=== PATIENT | male | born 1950 | race Caucasian/White ===

== ENCOUNTER 2019-03-03 12:59 | Outpatient (RCR) | payer MEDICARE, MEDICAID, SELFPAY | END 2019-03-03 23:59 | disposition home or self-care (01) | LOC: ONCRAD 12:59 | PROVIDERS: Family Provider Internal Medicine; Visit Provider Internal Medicine Hematology & Oncology | DX: I82.412 Acute embolism and thrombosis of left femoral vein (principal); I82.492 Acute embolism and thrombosis of other specified deep vein of left lower extremity; I82.432 Acute embolism and thrombosis of left popliteal vein; C21.1 Malignant neoplasm of anal canal | CPT/HCPCS: 93971 ==

== ENCOUNTER 2019-03-19 05:35 | Outpatient (RCR) | payer MEDICARE, MEDICAID, SELFPAY | END 2019-03-30 00:01 | LOC: ONCMED 05:35 | PROVIDERS: Family Provider Internal Medicine; Visit Provider Internal Medicine Hematology & Oncology | DX: C21.1 Malignant neoplasm of anal canal (principal); C77.4 Secondary and unspecified malignant neoplasm of inguinal and lower limb lymph nodes; K80.80 Other cholelithiasis without obstruction; K44.9 Diaphragmatic hernia without obstruction or gangrene; I82.412 Acute embolism and thrombosis of left femoral vein; I82.432 Acute embolism and thrombosis of left popliteal vein; Z87.01 Personal history of pneumonia (recurrent); Z79.899 Other long term (current) drug therapy; Z92.3 Personal history of irradiation; Z92.21 Personal history of antineoplastic chemotherapy; Z79.01 Long term (current) use of anticoagulants | CPT/HCPCS: 36415; 80053; 85025; 99214 ==

== ENCOUNTER 2019-05-18 08:53 | Outpatient (CLI) | payer MEDICARE, MEDICAID, SELFPAY ==
--- NOTE | 2019-05-18 08:58 | USCV_ITS ---
Gerardo Millan Age: 68 Gender: M : 1950 Exam Date: 05/18/2019 09:12 Ordering Phys: Casa Bonilla MD Technologist: Danay White Exam Location: [facility] [place]_ Indication: HISTORY DVT LEFT LEG HISTORY: left leg DVT February 2019. Patient has been on eloquist since that time PROCEDURES: On the left side, the common femoral, superficial femoral, profunda femoral, popliteal, posterior tibial, greater saphenous veins, and the peroneal trunk were identified and interrogated in the standard fashion. These veins were found to be easily compressible with spontaneous blood flow. FINDINGS: The veins were found to be easily compressible with spontaneous blood flow. Non pulsatile flow pattern. CONCLUSIONS No evidence of DVT in the above-mentioned identifiable veins. Dr Ashwin Marie MD FAC (Electronically Signed) Final Date: 19 May 2019 09:10 S
[2019-05-18 09:46] LABS: Basophils % 0.7 %; Eosinophils # 0.2 10^3/uL (0.0-0.8); Hematocrit 36.4 % (42.0-52.0); Hemoglobin 12.3 g/dL (11.7-16.6); Lymphocytes # 0.9 10^3/uL (0.8-4.8); Lymphocytes % 19.7 %; Mean Corpuscular HGB Conc 33.8 g/dL (30.0-36.0); Mean Corpuscular Hemoglobin 35.4 pg (28.0-34.0); Mean Corpuscular Volume 104.9 fL (80-94); Mean Platelet Volume 9.7 fL (7.4-10.4); Monocytes # 0.7 10^3/uL (0.2-0.9); Neutrophils # 2.7 10^3/uL (1.8-7.7); Neutrophils % 60.4 %; Nucleated Red Blood Cells % 0 %; Platelet Count 151 10^3/cmm (130-400); Red Blood Count 3.47 10^6/uL (4.1-5.3); White Blood Count 4.5 10^3/uL (4.0-10.0)
[2019-05-18 09:57] LABS: D Dimer 1.12 ug/mIFEU (0-0.59)
[2019-05-18 10:02] LABS: Alanine Aminotransferase 17 U/L (0-41); Albumin Level 4.1 g/dL (3.5-5.2); Alkaline Phosphatase 71 IU/L (40-130); Anion Gap 17.4 (5-19); Aspartate Amino Transferase 44 U/L (0-40); Blood Urea Nitrogen 23 mg/dL (8-23); Calcium 9.9 mg/dL (8.5-10.5); Carbon Dioxide 25 mmol/L (22-29); Chloride 103 mmol/L (98-107); Glomerular Filtration Rate 84.2 mL/min (90-130); Glucose 91 mg/dL (65-115); Potassium 4.4 mmol/L (3.5-5.1); Sodium 141 mmol/L (136-145); Total Bilirubin 0.7 mg/dL (0.15-1.2); Total Protein 7.1 g/dL (6.6-8.7)
== END 2019-05-18 08:54 | disposition home or self-care (01) ==
LOC: US 08:55
PROVIDERS: Family Provider Internal Medicine; PCP Internal Medicine; Visit Provider Internal Medicine Hematology & Oncology
DX: C21.1 Malignant neoplasm of anal canal (principal); Z86.718 Personal history of other venous thrombosis and embolism
CPT/HCPCS: 36415; 80053; 85025; 85378; 93971

== ENCOUNTER 2019-05-21 08:47 | Outpatient (CLI) | payer MEDICARE, MEDICAID, SELFPAY ==
--- NOTE | 2019-05-21 10:18 | ONC FU_ITS ---
Dr. Bonilla follow up note Patient: Gerardo Millan Unit #: [id number]: 1950 Dicatated By: Casa Bonilla M.D.Date of Visit:May 21, 2019 Onc Med Follow-up/Prog Note History of Present Illness: Mr. Millan is a 68-year-old gentleman with history of bowel habits changes. He underwent colonoscopy for the first-time on 10/13/2018 which showed a mass involving the right side of anal canal at the anal verge. 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 Patient denies any history of rectal bleeding or history of pelvic pain. He denied any history of nausea/vomiting, fever or chills. Has history of weight loss in the past but has regained that weight. Mr Millan has gender preference. He states he has had HIV testing in the past and it was negative. As per patient, he states he was once was told about being hepatitis C positive but when rechecked by another physician, he was told he was negative for hepatitis C. Patient has history of recurrent pneumonia requiring multiple hospitalizations. s/p concurrent therapy including Xeloda, mitomycin and daily radiation. eg mitomycin IV on days 1 and 29 and Xeloda (capecitabine) 1500 mg twice daily Friday through Friday with radiation treatments only , Day 1 and mitomycin was given on 11/26/2018 And day 29 was given on 01/07/2019 Follow-up CT scan of abdomen pelvis done on 02/12/2019 showed improved anal lesion consistent with history of treated neoplasm No metastatic disease Cholelithiasis, small esophageal hiatal hernia, Improved/resolved previously described right femoral metastatic lymph node Filling defect in the left common femoral vein may represent venous mixing artifact or DVT, sonogram was recommended Sonogram done on 03/03/2019 showed occlusive DVT visualized in left common femoral, superficial femoral, profunda, and popliteal, posterior tibial veins, and he was started on Eliquis 10 mg by mouth twice a day for 1 week on 03/03/2019 followed by 5 mg by mouth twice a day for 3 months. Follow-up venous Doppler study of left lower extremity done on 05/18/2019 showed no evidence of DVT in the left leg, d-dimer 1.12 normal being 0-0.40 Came for follow-up, denies any specific complaints, no vomiting no fever no chills no melena or hematochezia, no jaundice, no shortness of breath, no left leg swelling tolerating Eliquis well. Medications: Aspirin 1 Tablet (of 325 mg) Oral daily, Centrum Silver 50+Men 1 Tablet Oral daily, Eliquis 1 (5 mg) Tablet Oral b.i.d., Flonase Suspension Nasal PRN, Lisinopril 1 Tablet (of 20 mg) Oral daily, Metoprolol Tartrate 0.5 Tablet (of 50 mg) Oral b.i.d. Allergies: Penicillins Review of Systems: Constitutional - Appetite is good and weight is stable. No fever, chills, hot flashes, or night sweats. Energy level is fair, ENMT - Positive for sinus congestion/drainage. No mouth sores. No sore throat or difficulty swallowing, Hematologic/Lymphatic - Pt denies bruising or bleeding today, Respiratory - Positive for shortness of breath and cough. No pleuritic pain or hemoptysis, Cardiovascular - No angina pain. No palpitations, Gastrointestinal - No nausea or vomiting. No heartburn or acid reflux. No diarrhea, no constipation. Negative for bloody stools, Genitourinary (M) - No dysuria or hematuria. No urinary frequency. No urgency or incontinence, Musculoskeletal - Pt reports chronic back pain, Neurologic - No headache, no dizziness. No numbness/paresthesias or other focal neurologic symptoms, Psychiatric - No anxiety or depression. No insomnia. Vital Signs: Performed on May 21, 2019 08:57 Height - 72.00 in Weight - 168.2 lbs (HIGH) BSA - 1.98 sq.m BMI - 22.81 Temperature - 98.7 F Pulse - 57 /min (LOW) Respiration - 24 /min BP - 107/62 mm(hg) O2 Sat - 98 % Pain - 0 Performance Status: 0 - Fully active, able to carry on all predisease activities without restrictions. (ECOG) Physical Examination: ENMT - No oral exudates, ulcers, masses, thrush or mucositis. Oropharynx clear. Tongue normal, Respiratory - Lungs are clear to auscultation without rhonchi or wheezing, Cardiovascular - Regular rate and rhythm of heart, Abdomen - Non-tender, non-distended, Good bowel sounds. No guarding or rebound tenderness. No pulsatile masses, Extremities - no edema. Lab/Imaging: Test performed on May 18, 2019 09:36 Glucose 91 mg/dL BUN 23 mg/dL Creatinine 0.9 mg/dL Cr Clearance (Est) 85.95 mL/min Sodium 141 mmol/L Potassium 4.4 mmol/L Chloride 103 mmol/L CO2 25 mmol/L Calcium 9.9 mg/dL Protein, Total 7.1 g/dL Albumin 4.1 g/dL Globulin 3.0 g/dL Bilirubin, Total 0.7 mg/dL Alkaline Phosphatase 71 IU/L AST (SGOT) 44 IU/L ALT (SGPT) 17 IU/L D-Dimer 1.12 mcg/mL WBC 4.5 10^9/L RBC 3.47 10^12/L HGB 12.3 g/dL HCT 36.4 % MCV 104.9 fl MCH 35.4 pg MCHC 33.8 g/dL RDW 16.0 % Platelet Count 151 10^9/L MPV 9.7 fL Neutrophils (Gran) 2.7 10^9/L Lymphocytes 0.9 10^9/L Monocytes 0.7 10^9/L Eosinophils 0.2 10^9/L Basophils 0.0 10^9/L Manual Lymphocytes 19.7 % Manual Monocytes 15.0 % Manual Eosinophils 4.0 % Manual Basophils 0.7 % NRBCs 0.0 /100 WBC Test performed on Mar 17, 2019 10:10 Anion Gap 17.7 eGFR 55.1 mL/min Neutrophil % 55.9 % Lymphocyte % 21.5 % Monocyte % 15.5 % Eosinophil % 5.6 % Basophils % 0.5 % Impression: Keratinizing squamous cell carcinoma, moderately differentiated of anal canal per colonoscopy done on 10/13/2018 Patient with history of gender preference History of recurrent pneumonias requiring hospitalization HIV testing done in 2008 was negative. As per patient, once he was told being hepatitis C positive but rechecked by another physician he was told being negative. CT from 11/14/2018 reported a 3.4 cm anal mass with an SUV of 21.1. A 1.4 cm right femoral note had an SUV of 6 consistent with local metastatic disease. No findings to indicate additional disease. s/p concurrent therapy with Xeloda/Mitomycin and radiation. He began his first cycle on 11/26/2018. And day 29 on 01/07/2019, it was delayed due to progressive neutropenia Newly diagnosed left leg DVT on 03/03/2019, started on Eliquis 10 mg by mouth twice a day for 1 week followed by 5 mg by mouth twice a day for 3 months. Plan: Discussed with patient regarding his labs white blood count 4.5 hemoglobin 12.3 crit 36.4 platelets 151,000 CMP within normal limits d-dimer 1.12, normal is 0-0.40 and follow-up venous Doppler study of left leg showed no evidence of DVT Clinically, patient doing well, no signs symptoms suggestive of recurrence of disease. As far as left lower extremity DVT is concern patient is on Eliquis since 03/03/2019 and his follow-up venous Doppler study of left leg showed no evidence of DVTs but d-dimer is elevated at 1.12. We'll continue with anticoagulation for another month and repeat d-dimer and if normalize, by that time he we will complete 3 months of anticoagulation too . Then will discuss with patient regarding discontinuation of anticoagulation. Return to clinic in one month with d-dimer Signed By: Casa Bonilla M.D. <<Signature on File>>
== END 2019-05-21 08:48 | disposition home or self-care (01) ==
LOC: ONCMED 08:47
PROVIDERS: Family Provider Internal Medicine; PCP Internal Medicine; Visit Provider Internal Medicine Hematology & Oncology
DX: C21.1 Malignant neoplasm of anal canal (principal); K80.20 Calculus of gallbladder without cholecystitis without obstruction; K44.9 Diaphragmatic hernia without obstruction or gangrene; Z79.01 Long term (current) use of anticoagulants; Z79.82 Long term (current) use of aspirin; Z79.899 Other long term (current) drug therapy; Z86.718 Personal history of other venous thrombosis and embolism; Z87.01 Personal history of pneumonia (recurrent)
CPT/HCPCS: 99214

== ENCOUNTER 2019-05-30 06:00 | Outpatient (CLI) | payer MEDICARE, MEDICAID, SELFPAY | END 2019-05-30 06:01 | disposition home or self-care (01) | LOC: ONCMED 06-15 13:22 | PROVIDERS: Family Provider Internal Medicine; PCP Internal Medicine; Visit Provider Internal Medicine Hematology & Oncology | DX: Z01.89 Encounter for other specified special examinations (principal) ==

== ENCOUNTER 2019-06-04 09:55 | Observation (INO) | payer MEDICARE, MEDICAID, SELFPAY ==
[2019-06-04] VITALS (8 sets, daily range): BP systolic 102–120; BP diastolic 61–75; PULSE 59–93; RESP 16–20; TEMP 36.7–37.1; O2SAT 95–98; BMI 21.9
--- NOTE | 2019-06-04 09:54 | ED_ITS ---
Documented by User: Ling Morales 06/04/19 14:35 HPI - SOB/Dyspnea General: Chief Complaint: Shortness of Breath/Dyspnea Stated Complaint: shortness of breath Time Seen by Provider: 06/04/19 14:53 Source: patient and EMS History of Present Illness: MD elicited complaint: shortness of breath and cough Pertinent past history: COPD Timing: intermittent and progressively worsening Associated symptoms: Reports dizziness and nausea; Deny vomiting Review of Systems General: Reports: 10 or more systems reviewed and unremarkable except in HPI and below Resp: Reports: shortness of breath and non-productive cough GI: Reports: nausea; Denies: vomiting Neuro: Reports: headache, dizziness and vertigo PFSH ED PFSH: Social History Smoking and tobacco status: former smoker Physical Exam Const: COMMON NORMALS: no apparent distress, oriented x3, no limitations and alert GENERAL APPEARANCE: cooperative and comfortable ORIENTATION/CONSCIOUSNESS: Yes awake, Yes oriented to person, Yes oriented to place and Yes oriented to time HENMT: COMMON NORMALS: normocephalic, head/scalp atraumatic, external ears normal, EAC's normal, TM's normal bilaterally and external nose normal HEAD & SCALP: normal to inspection, normocephalic and atraumatic FACE & SINUS: normal facial exam, sinuses nontender and face symmetric NOSE: external nose normal, nares normal and no nasal discharge EXTERNAL EAR: Yes external ears normal EXTERNAL AUDITORY CANAL: EAC's normal TYMPANIC MEMBRANE: TM's normal bilaterally MOUTH: oral and palatal mucosa normal, lip normal and tongue normal THROAT: posterior oropharynx normal, tonsils normal and uvula midline Eye: COMMON NORMALS: PERRL, EOMs intact bilaterally and conjunctivae normal GENERAL EYE: normal appearance of both eyes and normal light reflex EYELID: eyelids normal CONJUNCTIVA: Yes conjunctivae normal PUPIL: Yes PERRL EOM: Yes EOM abnormal DIRECT OPHTHALMOSCOPY: Yes normal light reflex Neck/C-Spine: COMMON NORMALS: full ROM, no lymphadenopathy, supple, no meningeal signs, no JVD and thyroid normal GENERAL: Yes normal visual inspection THYROID: thyroid normal CERVICAL SPINE: Yes cervical ROM normal and Yes normal cervical lordosis Lymph: LYMPHATIC: no lymphadenopathy noted Chest: COMMONS NORMALS: inspection of chest normal and palpation of chest normal Resp: COMMON NORMALS: normal respiratory effort, no retractions and clear to auscultation bilaterally AUSCULTATION: clear to auscultation bilaterally Cardio: COMMON NORMALS: no JVD, regular rate, regular rhythm, S1 normal heart sound, S2 normal heart sound, no gallops, no clicks, no murmurs, no rub and peripheral pulses 2+ throughout RATE: regular rate RHYTHM: regular rhythm HEART SOUNDS: S1 normal and S2 normal PERIPHERAL PULSES: pulses 2+ throughout GI: COMMON NORMALS: normal to inspection, nondistended, normoactive bowel sounds, soft to palpation, non-tender and no masses PALPATION: Yes soft : COMMON NORMALS: Yes no CVA tenderness BLADDER/KIDNEY EXAM: Yes no CVA tenderness Back/Pelvis: COMMON NORMALS: no CVA tenderness, thoracic and lumbar spine normal to inspection, no thoracic nor lumbar tenderness and thoraco-lumbar ROM normal Extremity: COMMON NORMALS: normal to inspection, full ROM, normal capillary refill, no joint enlargement, no clubbing, cyanosis or edema, no calf tenderness and no pedal edema GENERAL: Yes normal exam except as noted Neuro: COMMON NORMALS: oriented x3, moves all extremities, no focal motor deficits, no sensory deficits noted and gait normal SENSORIUM/ORIENTATION: Yes alert, Yes oriented to person, Yes oriented to place and Yes oriented to time MENINGEAL SIGNS: Yes no meningeal signs Psych: COMMON NORMALS: mental status grossly normal, thought process normal, cooperative, affect normal, speech normal and activity/motor behavior normal SPEECH: Yes normal speech THOUGHT PROCESS: normal thought process Skin: COMMON NORMALS: no rashes or lesions noted, no wounds and skin turgor normal GENERAL SKIN EXAM: no rashes or lesions noted and turgor normal Course ED course: Arrival by EMS; pt improved with breathing tx. Cough progressively worse with SOB. Orders placed. RT at bedside. Reevaluation(s): Reevaluation #1: Pt is vomiting after giving PO meds. He remains very dizzy. Meds ordered. Time: 11:59 Reevaluation #2: CTA negative for clot Time: 13:21 Reevaluation #3: Awaiting orthos and reassessment after meds given. Time: 13:22 Consultations: Consultation #1: Pt too weak to be discharged to home at this time. Dr. Pastrana notified and will proceed with admit after speaking with hospitalist. Time: 14:35 Vital Signs: Vital signs: Vital Signs Temperature 98.8 F 06/04/19 09:48 Pulse Rate 61 06/04/19 15:44 Respiratory Rate 17 06/04/19 15:44 Blood Pressure 102/75 06/04/19 15:44 Pulse Oximetry 96 06/04/19 15:44 MDM - SOB/Dyspnea Lab Data: Labs: Lab Results 06/04/19 06/04/19 06/04/19 Range/Units 09:22 09:22 09:22 WBC 4.3 (4.0-10.0) 10^3/ uL RBC 3.30 L (4.1-5.3) 10^6/u L Hgb 11.4 L (11.7-16.6) g/dL Hct 34.1 L (42.0-52.0) % MCV 103.3 H (80-94) fL MCH 34.5 H (28.0-34.0) pg MCHC 33.4 (30.0-36.0) g/dL RDW 16.4 H (12.1-15.1) % Plt Count 93 L (130-400) 10^3/c mm MPV 10.8 H (7.4-10.4) fL Neut % (Auto) 53.8 % Lymph % (Auto) 28.4 % [place] % (Auto) 15.2 % Eos % (Auto) 1.6 % Baso % (Auto) 0.5 % Neut # (Auto) 2.3 (1.8-7.7) 10^3/u L Lymph # (Auto) 1.2 (0.8-4.8) 10^3/u L [place] # (Auto) 0.7 (0.2-0.9) 10^3/u L Eos # (Auto) 0.1 (0.0-0.8) 10^3/u L Baso # (Auto) 0.0 (0.0-0.1) 10^3/u L Nucleated RBC % (a uto) 0 % Nucleated RBCs # 0.0 /100WBC Sodium 141 (136-145) mmol/L Potassium 4.2 (3.5-5.1) mmol/L Chloride 100 (98-107) mmol/L Carbon Dioxide 22 (22-29) mmol/L Anion Gap 23.2 H (5-19) BUN 24 H (8-23) mg/dL Creatinine 1.2 (0.7-1.2) mg/dL GFR Calculation 60.4 L (90-130) mL/min Glucose 108 (65-115) mg/dL Calcium 9.2 (8.5-10.5) mg/dL Total Bilirubin 1.0 (0.15-1.2) mg/dL AST 120 H (0-40) U/L ALT 54 H (0-41) U/L Alkaline Phosphata se 93 (40-130) IU/L NT-Pro-B Natriuret Pep 582 H (0-125) pg/mL Total Protein 7.0 (6.6-8.7) g/dL Albumin 3.6 (3.5-5.2) g/dL Globulin 3.4 (1.3-4.6) g/dL Urine Color (Yellow) Urine Appearance (CLEAR) Urine pH (5-7) Ur Specific Gravit y (1.005-1.030) Urine Protein (Negative) Urine Glucose (UA) (Normal) Urine Ketones (Negative) Urine Blood (Negative) Urine Nitrate (Negative) Urine Bilirubin (NEGATIVE) Urine Urobilinogen (Negative) mg/dL Ur Leukocyte Sandhya ase (Negative) Influenza Type A A g (Negative) POC Influenza B Ag (Negative) 06/04/19 06/04/19 Range/Units 10:05 10:59 WBC (4.0-10.0) 10^3/ uL RBC (4.1-5.3) 10^6/u L Hgb (11.7-16.6) g/dL Hct (42.0-52.0) % MCV (80-94) fL MCH (28.0-34.0) pg MCHC (30.0-36.0) g/dL RDW (12.1-15.1) % Plt Count (130-400) 10^3/c mm MPV (7.4-10.4) fL Neut % (Auto) % Lymph % (Auto) % [place] % (Auto) % Eos % (Auto) % Baso % (Auto) % Neut # (Auto) (1.8-7.7) 10^3/u L Lymph # (Auto) (0.8-4.8) 10^3/u L [place] # (Auto) (0.2-0.9) 10^3/u L Eos # (Auto) (0.0-0.8) 10^3/u L Baso # (Auto) (0.0-0.1) 10^3/u L Nucleated RBC % (a uto) % Nucleated RBCs # /100WBC Sodium (136-145) mmol/L Potassium (3.5-5.1) mmol/L Chloride (98-107) mmol/L Carbon Dioxide (22-29) mmol/L Anion Gap (5-19) BUN (8-23) mg/dL Creatinine (0.7-1.2) mg/dL GFR Calculation (90-130) mL/min Glucose (65-115) mg/dL Calcium (8.5-10.5) mg/dL Total Bilirubin (0.15-1.2) mg/dL AST (0-40) U/L ALT (0-41) U/L Alkaline Phosphata se (40-130) IU/L NT-Pro-B Natriuret Pep (0-125) pg/mL Total Protein (6.6-8.7) g/dL Albumin (3.5-5.2) g/dL Globulin (1.3-4.6) g/dL Urine Color Yellow (Yellow) Urine Appearance Clear (CLEAR) Urine pH 5.0 (5-7) Ur Specific Gravit y 1.020 (1.005-1.030) Urine Protein Neg (Negative) Urine Glucose (UA) Norm (Normal) Urine Ketones 1+ H (Negative) Urine Blood Neg (Negative) Urine Nitrate Negative (Negative) Urine Bilirubin Neg (NEGATIVE) Urine Urobilinogen Norm (Negative) mg/dL Ur Leukocyte Sandhya ase Negative (Negative) Influenza Type A A g Negative (Negative) POC Influenza B Ag Negative (Negative) Discharge Plan Discharge Patient Disposition: Placed in Observation Admit Provider: Briana Nava Clinical Impression: Acute dehydration Vomiting Qualifiers: Vomiting type: unspecified Vomiting Intractability: intractable Nausea presence: with nausea Qualified Code(s): R11.2 - Nausea with vomiting, unspecified Chemotherapy adverse reaction Qualifiers: Encounter type: subsequent encounter Qualified Code(s): T45.1X5D - Adverse effect of antineoplastic and immunosuppressive drugs, subsequent encounter Condition: Stable Referrals: NATASHA LESTER DO [Primary Care Provider] - Discharge Date/Time: 06/04/19 16:31 Sign Out Sign Out Data: Patient Sign Out occurred on 06/04/19 at 14:53. Patient's care was discussed, and care was transferred from Ling Morales to Carole Ratliff DO. Sign Out Comment: Pt needs to be admitted for dehydration, weakness, dizziness, and intractable vomiting (post chemo) Last updated by Ling Morales at 06/04/19 14:51 Coding Level of Care Code ED Gas Distribution And Emergency Clerk for Chg Fwd Exam Comprehensive Documented by User: Carole Pastrana DO 06/04/19 16:45 HPI - SOB/Dyspnea General: Chief Complaint: Shortness of Breath/Dyspnea Stated Complaint: shortness of breath Time Seen by Provider: 06/04/19 14:53 PFSH ED PFSH: Social History Smoking and tobacco status: former smoker Course Vital Signs: Vital signs: Vital Signs Temperature 98.8 F 06/04/19 09:48 Pulse Rate 61 06/04/19 15:44 Respiratory Rate 17 06/04/19 15:44 Blood Pressure 102/75 06/04/19 15:44 Pulse Oximetry 96 06/04/19 15:44 MDM - SOB/Dyspnea MDM Narrative: Medical decision making narrative: 1500: pt has had intractable vomiting and cannot get his strength back after he last chemo. He will need iv hydration, I have taken this pt from Ling CARTAGENA, Dr Nava states she will put pt in obs Lab Data: Attestation: I reviewed the patient's lab results. Lab results narrative: BUN is 24 and Cr is 1.2 and he is prerenal Labs: Lab Results 06/04/19 06/04/19 06/04/19 Range/Units 09:22 09:22 09:22 WBC 4.3 (4.0-10.0) 10^3/ uL RBC 3.30 L (4.1-5.3) 10^6/u L Hgb 11.4 L (11.7-16.6) g/dL Hct 34.1 L (42.0-52.0) % MCV 103.3 H (80-94) fL MCH 34.5 H (28.0-34.0) pg MCHC 33.4 (30.0-36.0) g/dL RDW 16.4 H (12.1-15.1) % Plt Count 93 L (130-400) 10^3/c mm MPV 10.8 H (7.4-10.4) fL Neut % (Auto) 53.8 % Lymph % (Auto) 28.4 % [place] % (Auto) 15.2 % Eos % (Auto) 1.6 % Baso % (Auto) 0.5 % Neut # (Auto) 2.3 (1.8-7.7) 10^3/u L Lymph # (Auto) 1.2 (0.8-4.8) 10^3/u L [place] # (Auto) 0.7 (0.2-0.9) 10^3/u L Eos # (Auto) 0.1 (0.0-0.8) 10^3/u L Baso # (Auto) 0.0 (0.0-0.1) 10^3/u L Nucleated RBC % (a uto) 0 % Nucleated RBCs # 0.0 /100WBC Sodium 141 (136-145) mmol/L Potassium 4.2 (3.5-5.1) mmol/L Chloride 100 (98-107) mmol/L Carbon Dioxide 22 (22-29) mmol/L Anion Gap 23.2 H (5-19) BUN 24 H (8-23) mg/dL Creatinine 1.2 (0.7-1.2) mg/dL GFR Calculation 60.4 L (90-130) mL/min Glucose 108 (65-115) mg/dL Calcium 9.2 (8.5-10.5) mg/dL Total Bilirubin 1.0 (0.15-1.2) mg/dL AST 120 H (0-40) U/L ALT 54 H (0-41) U/L Alkaline Phosphata se 93 (40-130) IU/L NT-Pro-B Natriuret Pep 582 H (0-125) pg/mL Total Protein 7.0 (6.6-8.7) g/dL Albumin 3.6 (3.5-5.2) g/dL Globulin 3.4 (1.3-4.6) g/dL Urine Color (Yellow) Urine Appearance (CLEAR) Urine pH (5-7) Ur Specific Gravit y (1.005-1.030) Urine Protein (Negative) Urine Glucose (UA) (Normal) Urine Ketones (Negative) Urine Blood (Negative) Urine Nitrate (Negative) Urine Bilirubin (NEGATIVE) Urine Urobilinogen (Negative) mg/dL Ur Leukocyte Sandhya ase (Negative) Influenza Type A A g (Negative) POC Influenza B Ag (Negative) 06/04/19 06/04/19 Range/Units 10:05 10:59 WBC (4.0-10.0) 10^3/ uL RBC (4.1-5.3) 10^6/u L Hgb (11.7-16.6) g/dL Hct (42.0-52.0) % MCV (80-94) fL MCH (28.0-34.0) pg MCHC (30.0-36.0) g/dL RDW (12.1-15.1) % Plt Count (130-400) 10^3/c mm MPV (7.4-10.4) fL Neut % (Auto) % Lymph % (Auto) % [place] % (Auto) % Eos % (Auto) % Baso % (Auto) % Neut # (Auto) (1.8-7.7) 10^3/u L Lymph # (Auto) (0.8-4.8) 10^3/u L [place] # (Auto) (0.2-0.9) 10^3/u L Eos # (Auto) (0.0-0.8) 10^3/u L Baso # (Auto) (0.0-0.1) 10^3/u L Nucleated RBC % (a uto) % Nucleated RBCs # /100WBC Sodium (136-145) mmol/L Potassium (3.5-5.1) mmol/L Chloride (98-107) mmol/L Carbon Dioxide (22-29) mmol/L Anion Gap (5-19) BUN (8-23) mg/dL Creatinine (0.7-1.2) mg/dL GFR Calculation (90-130) mL/min Glucose (65-115) mg/dL Calcium (8.5-10.5) mg/dL Total Bilirubin (0.15-1.2) mg/dL AST (0-40) U/L ALT (0-41) U/L Alkaline Phosphata se (40-130) IU/L NT-Pro-B Natriuret Pep (0-125) pg/mL Total Protein (6.6-8.7) g/dL Albumin (3.5-5.2) g/dL Globulin (1.3-4.6) g/dL Urine Color Yellow (Yellow) Urine Appearance Clear (CLEAR) Urine pH 5.0 (5-7) Ur Specific Gravit y 1.020 (1.005-1.030) Urine Protein Neg (Negative) Urine Glucose (UA) Norm (Normal) Urine Ketones 1+ H (Negative) Urine Blood Neg (Negative) Urine Nitrate Negative (Negative) Urine Bilirubin Neg (NEGATIVE) Urine Urobilinogen Norm (Negative) mg/dL Ur Leukocyte Sandhya ase Negative (Negative) Influenza Type A A g Negative (Negative) POC Influenza B Ag Negative (Negative) Discharge Plan Discharge Patient Disposition: Placed in Observation Admit Provider: Briana Nava Clinical Impression: Acute dehydration Vomiting Qualifiers: Vomiting type: unspecified Vomiting Intractability: intractable Nausea presence: with nausea Qualified Code(s): R11.2 - Nausea with vomiting, unspecified Chemotherapy adverse reaction Qualifiers: Encounter type: subsequent encounter Qualified Code(s): T45.1X5D - Adverse effect of antineoplastic and immunosuppressive drugs, subsequent encounter Condition: Stable Referrals: NATASHA LESTER DO [Primary Care Provider] - Discharge Date/Time: 06/04/19 16:31 Sign Out Sign Out Data: Patient Sign Out occurred on 06/04/19 at 14:53. Patient's care was discussed, and care was transferred from Ling Morales to Carole Ratliff DO. Sign Out Comment: Pt needs to be admitted for dehydration, weakness, dizziness, and intractable vomiting (post chemo) Last updated by Ling Morales at 06/04/19 14:51 Coding Level of Care Code ED [employer] Distribution And Emergency Clerk for Chg Fwd Exam Comprehensive
[2019-06-04] MEDS: sodium chloride 0.9% 500 ML 999 ML IV ×2 (10:01→14:10)
[2019-06-04 10:04] LABS: Basophils % 0.5 %; Eosinophils # 0.1 10^3/uL (0.0-0.8); Eosinophils % 1.6 %; Hematocrit 34.1 % (42.0-52.0); Hemoglobin 11.4 g/dL (11.7-16.6); Lymphocytes # 1.2 10^3/uL (0.8-4.8); Lymphocytes % 28.4 %; Mean Corpuscular HGB Conc 33.4 g/dL (30.0-36.0); Mean Corpuscular Hemoglobin 34.5 pg (28.0-34.0); Mean Corpuscular Volume 103.3 fL (80-94); Mean Platelet Volume 10.8 fL (7.4-10.4); Monocytes # 0.7 10^3/uL (0.2-0.9); Monocytes % 15.2 %; Neutrophils # 2.3 10^3/uL (1.8-7.7); Neutrophils % 53.8 %; Nucleated Red Blood Cells % 0 %; Platelet Count 93 10^3/cmm (130-400); Red Cell Distribution Width 16.4 % (12.1-15.1); White Blood Count 4.3 10^3/uL (4.0-10.0)
[2019-06-04] MEDS: ipratropium-albuterol 3 mL Neb INHALATION (10:13)
[2019-06-04 10:17] LABS: Alanine Aminotransferase 54 U/L (0-41); Albumin Level 3.6 g/dL (3.5-5.2); Alkaline Phosphatase 93 IU/L (40-130); Anion Gap 23.2 (5-19); Aspartate Amino Transferase 120 U/L (0-40); Blood Urea Nitrogen 24 mg/dL (8-23); Calcium 9.2 mg/dL (8.5-10.5); Carbon Dioxide 22 mmol/L (22-29); Chloride 100 mmol/L (98-107); Globulin 3.4 g/dL (1.3-4.6); Glomerular Filtration Rate 60.4 mL/min (90-130); Glucose 108 mg/dL (65-115); Potassium 4.2 mmol/L (3.5-5.1); Sodium 141 mmol/L (136-145)
--- NOTE | 2019-06-04 10:27 | XR_ITS ---
WS: [id number] XR chest 1V portable [id number] REASON FOR EXAM: sob FINDINGS: A remote fracture of the right humerus is noted. The heart is borderline enlarged. [place] there is granulomas throughout both lung lomeli. The lung lomeli are well aerated. There is no pneumonia, pleural effusion, pulmonary edema, no mass e ffect. No pneumothorax. No osseous abnormalities. The hilum and apices normal. XR/XR chest 1V portable [id number] IMPRESSION: No acute findings are identified.
[2019-06-04 10:34] LABS: Influenza A by IFA Negative (Negative); Influenza B by IFA Negative (Negative)
--- NOTE | 2019-06-04 10:52 | ECG_ITS ---
Measurements Intervals Scott Rate: 68 P: 64 IN: 123 QRS: 17 QRSD: 91 T: 33 QT: 428 QTc: 455 JUNCTIONAL RHYTHM Compared to ECG 05/21/2018 13:04:12 T-wave abnormality no longer present Prolonged QT interval no longer present Electronically Signed On 06-04-2019 15:19:43 TEXTILE BROKER by Kylah Rodriguez M.D. [email or web address]
[2019-06-04 11:15] LABS: Add Urine Microscopic? NO
[2019-06-04 11:34] LABS: NT Pro B Type Natriuretic Pept 582 pg/mL (0-125)
[2019-06-04 11:35] LABS: Bilirubin Urine Neg (NEGATIVE); Blood Urine Neg (Negative); Glucose Urine UA Norm (Normal); Ketones Urine 1+ (Negative); Leukocyte Esterase Urine Negative (Negative); Nitrate Urine Negative (Negative); Protein Urine Neg (Negative); Urine Appearance Clear (CLEAR); Urine Color Yellow (Yellow); Urobilinogen Urine Norm (Negative)
[2019-06-04] MEDS: meclizine 25 mg tablet 50 MG PO (12:06)
[2019-06-04] MEDS: ondansetron 2 mg/ML SDV 2 mL 4 MG IVP (12:24)
[2019-06-04] MEDS: LORazepam 2 mg/mL INJ 1 mL IVP (12:24)
--- NOTE | 2019-06-04 12:44 | CT_ITS ---
WS: [id number] CTA OF THE CHEST WITH PULMONARY EMBOLISM PROTOCOL TECHNIQUE: High-resolution contrast enhanced CTA of the chest with coronal and sagittal reformatted i mages with pulmonary embolism protocol. MIP images are also reviewed. CLINICAL INFORMATION: sob, dvt COMPARISON: May 21, 2018 DLP: 592.[address] scans at [facility] use at least one of these dose optimization techniques: automat ed exposure control; mA and/or kV adjustment per patient size (includes targeted exams where dose is matched to clinical indication); or iterative reconstruction. FINDINGS: Proximal main pulmonary arteries are normal. Normal segmental and subsegmental pulmonary arteries. So me images degraded by motion artifact. No evidence for pulmonary embolus. Chronic emphysematous changes. Subsegmental atelectasis in the left greater than right lung base. No acute pulmonary infiltrates. Normal caliber thoracic aorta. No mediastinal or hilar lymphadenopathy. Small esophageal hiatal herni a.Cholelithiasis. Fatty liver. Chronic rib fractures with callus formation. Thoracic kyphosis with chronic compression deformities i n the lower thoracic spine. Adrenal glands are normal. Partially visualized left renal cyst. Notified Carole Pastrana DO at 06/04/2019 1:[address]/CT angio chest PE protcl [id number] IMPRESSION: 1. Sternotomy. No evidence for pulmonary embolus. 2. Normal caliber thoracic aorta. 3. Chronic emphysematous changes. Subsegmental atelectasis in the left greater than right lung base. 4. No acute-appearing pulmonary infiltrates. 5. Cholelithiasis. Fatty liver. 6. Moderate thoracic kyphosis.
[2019-06-04] MEDS: iohexol 350 mg/mL 100 mL Btl IV (13:02)
--- NOTE | 2019-06-04 14:55 | ED_ITS ---
Entered by Alisson Garcia, acting as scribe for Jun 04, 2019 09:55 HPI - SOB/Dyspnea General: Chief Complaint: Shortness of Breath/Dyspnea Stated Complaint: shortness of breath Time Seen by Provider: 06/04/19 14:53 Source: patient and EMS [facility] ED PFSH: Social History Smoking and tobacco status: former smoker Course Vital Signs: Vital signs: Vital Signs Temperature 98.0 F 06/05/19 15:31 Pulse Rate 58 L 06/05/19 15:31 Respiratory Rate 18 06/05/19 15:31 Blood Pressure 119/73 06/05/19 15:31 Pulse Oximetry 96 06/05/19 15:31 MDM - SOB/Dyspnea Lab Data: Labs: Lab Results 06/04/19 06/04/19 06/04/19 Range/Units 09:22 09:22 09:22 WBC 4.3 (4.0-10.0) 10^3/ uL RBC 3.30 L (4.1-5.3) 10^6/u L Hgb 11.4 L (11.7-16.6) g/dL Hct 34.1 L (42.0-52.0) % MCV 103.3 H (80-94) fL MCH 34.5 H (28.0-34.0) pg MCHC 33.4 (30.0-36.0) g/dL RDW 16.4 H (12.1-15.1) % Plt Count 93 L (130-400) 10^3/c mm MPV 10.8 H (7.4-10.4) fL Neut % (Auto) 53.8 % Lymph % (Auto) 28.4 % Hockley % (Auto) 15.2 % Eos % (Auto) 1.6 % Baso % (Auto) 0.5 % Neut # (Auto) 2.3 (1.8-7.7) 10^3/u L Lymph # (Auto) 1.2 (0.8-4.8) 10^3/u L Hockley # (Auto) 0.7 (0.2-0.9) 10^3/u L Eos # (Auto) 0.1 (0.0-0.8) 10^3/u L Baso # (Auto) 0.0 (0.0-0.1) 10^3/u L Nucleated RBC % (a uto) 0 % Nucleated RBCs # 0.0 /100WBC Sodium 141 (136-145) mmol/L Potassium 4.2 (3.5-5.1) mmol/L Chloride 100 (98-107) mmol/L Carbon Dioxide 22 (22-29) mmol/L Anion Gap 23.2 H (5-19) BUN 24 H (8-23) mg/dL Creatinine 1.2 (0.7-1.2) mg/dL GFR Calculation 60.4 L (90-130) mL/min Glucose 108 (65-115) mg/dL Calcium 9.2 (8.5-10.5) mg/dL Total Bilirubin 1.0 (0.15-1.2) mg/dL AST 120 H (0-40) U/L ALT 54 H (0-41) U/L Alkaline Phosphata se 93 (40-130) IU/L NT-Pro-B Natriuret Pep 582 H (0-125) pg/mL Total Protein 7.0 (6.6-8.7) g/dL Albumin 3.6 (3.5-5.2) g/dL Globulin 3.4 (1.3-4.6) g/dL Lipase (13-60) U/L TSH (0.27-4.20) uIU/ mL Urine Color (Yellow) Urine Appearance (CLEAR) Urine pH (5-7) Ur Specific Gravit y (1.005-1.030) Urine Protein (Negative) Urine Glucose (UA) (Normal) Urine Ketones (Negative) Urine Blood (Negative) Urine Nitrate (Negative) Urine Bilirubin (NEGATIVE) Urine Urobilinogen (Negative) mg/dL Ur Leukocyte Sandhya ase (Negative) Ethyl Alcohol (0-10) mg/dL HIV 1&2 Ab & HIV 1 Ag (Non-Reactiv) HIV 1&2 Antibody (Non-Reactiv) Influenza Type A A g (Negative) POC Influenza B Ag (Negative) 06/04/19 06/04/19 06/04/19 Range/Units 09:22 09:22 09:22 WBC (4.0-10.0) 10^3/ uL RBC (4.1-5.3) 10^6/u L Hgb (11.7-16.6) g/dL Hct (42.0-52.0) % MCV (80-94) fL MCH (28.0-34.0) pg MCHC (30.0-36.0) g/dL RDW (12.1-15.1) % Plt Count (130-400) 10^3/c mm MPV (7.4-10.4) fL Neut % (Auto) % Lymph % (Auto) % Hockley % (Auto) % Eos % (Auto) % Baso % (Auto) % Neut # (Auto) (1.8-7.7) 10^3/u L Lymph # (Auto) (0.8-4.8) 10^3/u L Hockley # (Auto) (0.2-0.9) 10^3/u L Eos # (Auto) (0.0-0.8) 10^3/u L Baso # (Auto) (0.0-0.1) 10^3/u L Nucleated RBC % (a uto) % Nucleated RBCs # /100WBC Sodium (136-145) mmol/L Potassium (3.5-5.1) mmol/L Chloride (98-107) mmol/L Carbon Dioxide (22-29) mmol/L Anion Gap (5-19) BUN (8-23) mg/dL Creatinine (0.7-1.2) mg/dL GFR Calculation (90-130) mL/min Glucose (65-115) mg/dL Calcium (8.5-10.5) mg/dL Total Bilirubin (0.15-1.2) mg/dL AST (0-40) U/L ALT (0-41) U/L Alkaline Phosphata se (40-130) IU/L NT-Pro-B Natriuret Pep (0-125) pg/mL Total Protein (6.6-8.7) g/dL Albumin (3.5-5.2) g/dL Globulin (1.3-4.6) g/dL Lipase 30 (13-60) U/L TSH 1.40 (0.27-4.20) uIU/ mL Urine Color (Yellow) Urine Appearance (CLEAR) Urine pH (5-7) Ur Specific Gravit y (1.005-1.030) Urine Protein (Negative) Urine Glucose (UA) (Normal) Urine Ketones (Negative) Urine Blood (Negative) Urine Nitrate (Negative) Urine Bilirubin (NEGATIVE) Urine Urobilinogen (Negative) mg/dL Ur Leukocyte Sandhya ase (Negative) Ethyl Alcohol < 10 (0-10) mg/dL HIV 1&2 Ab & HIV 1 Ag Non-reactive (Non-Reactiv) HIV 1&2 Antibody Non-reactive (Non-Reactiv) Influenza Type A A g (Negative) POC Influenza B Ag (Negative) 06/04/19 06/04/19 Range/Units 10:05 10:59 WBC (4.0-10.0) 10^3/ uL RBC (4.1-5.3) 10^6/u L Hgb (11.7-16.6) g/dL Hct (42.0-52.0) % MCV (80-94) fL MCH (28.0-34.0) pg MCHC (30.0-36.0) g/dL RDW (12.1-15.1) % Plt Count (130-400) 10^3/c mm MPV (7.4-10.4) fL Neut % (Auto) % Lymph % (Auto) % Hockley % (Auto) % Eos % (Auto) % Baso % (Auto) % Neut # (Auto) (1.8-7.7) 10^3/u L Lymph # (Auto) (0.8-4.8) 10^3/u L Hockley # (Auto) (0.2-0.9) 10^3/u L Eos # (Auto) (0.0-0.8) 10^3/u L Baso # (Auto) (0.0-0.1) 10^3/u L Nucleated RBC % (a uto) % Nucleated RBCs # /100WBC Sodium (136-145) mmol/L Potassium (3.5-5.1) mmol/L Chloride (98-107) mmol/L Carbon Dioxide (22-29) mmol/L Anion Gap (5-19) BUN (8-23) mg/dL Creatinine (0.7-1.2) mg/dL GFR Calculation (90-130) mL/min Glucose (65-115) mg/dL Calcium (8.5-10.5) mg/dL Total Bilirubin (0.15-1.2) mg/dL AST (0-40) U/L ALT (0-41) U/L Alkaline Phosphata se (40-130) IU/L NT-Pro-B Natriuret Pep (0-125) pg/mL Total Protein (6.6-8.7) g/dL Albumin (3.5-5.2) g/dL Globulin (1.3-4.6) g/dL Lipase (13-60) U/L TSH (0.27-4.20) uIU/ mL Urine Color Yellow (Yellow) Urine Appearance Clear (CLEAR) Urine pH 5.0 (5-7) Ur Specific Gravit y 1.020 (1.005-1.030) Urine Protein Neg (Negative) Urine Glucose (UA) Norm (Normal) Urine Ketones 1+ H (Negative) Urine Blood Neg (Negative) Urine Nitrate Negative (Negative) Urine Bilirubin Neg (NEGATIVE) Urine Urobilinogen Norm (Negative) mg/dL Ur Leukocyte Sandhya ase Negative (Negative) Ethyl Alcohol (0-10) mg/dL HIV 1&2 Ab & HIV 1 Ag (Non-Reactiv) HIV 1&2 Antibody (Non-Reactiv) Influenza Type A A g Negative (Negative) POC Influenza B Ag Negative (Negative) Imaging Data^: CXR: Radiologist's impression: [address] [address] XRay Report Signed Patient: Gerardo Millan AUnnelson #: [id number] : 2Acc#:[id number] Age/Sex: 68 / MADM Date: 06/04/19 Loc: [facility]/Bed: Attending Dr: Ordering Provider/Ordering MD: Ling Morales NP Date of Service: 06/04/19 Procedure(s): XR chest 1V portable [id number] Accession Number(s): [id number] Report Number: [id number] WS: [id number] XR chest 1V portable [id number] REASON FOR EXAM: sob FINDINGS: A remote fracture of the right humerus is noted. The heart is borderline enlarged. Mcpherson there is granulomas throughout both lung lomeli. The lung lomeli are well aerated. There is no pneumonia, pleural effusion, pulmonary edema, no mass effect. No pneumothorax. No osseous abnormalities. The hilum and apices normal. XR/XR chest 1V portable [id number] IMPRESSION: No acute findings are identified. Dictated By:Chuck Ochoa DO Signed By:Chuck Ochoa DOSigned Date/Time:06/04/19 1041 DD/ CTA Chest: Radiologist's impression: [address] [address] [address] Scan Report Signed Patient: Gerardo Millan #: [id number] : 2Acct#:[id number] Age/Sex: 68 / MADM Date: 06/04/19 Loc: [facility]/Bed: Attending Dr: Ordering Provider/Ordering MD: Carole Pastrana DO Date of Service: 06/04/19 Procedure(s): CT angio chest PE protcl [id number] Accession Number(s): [id number] Report Number: [id number] WS: [id number] CTA OF THE CHEST WITH PULMONARY EMBOLISM PROTOCOL TECHNIQUE: High-resolution contrast enhanced CTA of the chest with coronal and sagittal reformatted images with pulmonary embolism protocol. MIP images are also reviewed. CLINICAL INFORMATION: sob, dvt COMPARISON: May 21, 2018 DLP: 592.[address] scans at [facility] use at least one of these dose optimization techniques: automated exposure control; mA and/or kV adjustment per patient size (includes targeted exams where dose is matched to clinical indication); or iterative reconstruction. FINDINGS: Proximal main pulmonary arteries are normal. Normal segmental and subsegmental pulmonary arteries. Some images degraded by motion artifact. No evidence for pulmonary embolus. Chronic emphysematous changes. Subsegmental atelectasis in the left greater than right lung base. No acute pulmonary infiltrates. Normal caliber thoracic aorta. No mediastinal or hilar lymphadenopathy. Small esophageal hiatal hernia.Cholelithiasis. Fatty liver. Chronic rib fractures with callus formation. Thoracic kyphosis with chronic compression deformities in the lower thoracic spine. Adrenal glands are normal. Partially visualized left renal cyst. Notified Carole Pastrana DO at 06/04/2019 1:[address]/CT angio chest PE protcl [id number] IMPRESSION: 1. Sternotomy. No evidence for pulmonary embolus. 2. Normal caliber thoracic aorta. 3. Chronic emphysematous changes. Subsegmental atelectasis in the left greater than right lung base. 4. No acute-appearing pulmonary infiltrates. 5. Cholelithiasis. Fatty liver. 6. Moderate thoracic kyphosis. Dictated By:Anjum Bills MD Signed By:Anjum Bills MDSigned Date/Time:06/04/19 1315 DD/ Discharge Plan Discharge Patient Disposition: Placed in Observation Admit Provider: Briana Nava Clinical Impression: Chemotherapy adverse reaction, Acute dehydration Vomiting Qualifiers: Vomiting type: unspecified Vomiting Intractability: intractable Nausea presence: with nausea Qualified Code(s): R11.2 - Nausea with vomiting, unspecified Condition: Stable Referrals: NATASHA LESTER DO [Primary Care Provider] - 7-10 days (Please call Friday to make a follow up appointment within 7-10 days. ) Discharge Diet: Usual diet Discharge Activity: Resume usual activity Patient Instructions: Lorazepam (By mouth), Prochlorperazine (By mouth), Acute Nausea and Vomiting (DC) Discharge Date/Time: 06/04/19 16:31 Sign Out Sign Out Data: Patient Sign Out occurred on 06/04/19 at 14:53. Patient's care was discussed, and care was transferred from Ling Morales to Carole Ratliff DO. Sign Out Comment: Pt needs to be admitted for dehydration, weakness, dizziness, and intractable vomiting (post chemo) Last updated by Ling Morales at 06/04/19 14:51 Coding Level of Care Code ED Benefits Assistant for Chg Fwd The documentation recorded by the Jose arita Valerie R accurately reflects the service I personally performed and the decisions made by Victoriano rowland Sonia M, DO Jun 04, 2019 09:55
--- NOTE | 2019-06-04 17:38 | CTR_ITS ---
PROCEDURE INFORMATION: Exam: CT Abdomen And Pelvis Without Contrast Exam date and time: 06/04/2019 5:46 PM Age: 68 years old Clinical indication: Nausea and vomiting; Patient HX: ? Pancreatitis - n/v earlier today - HX of rectal CA TECHNIQUE: Imaging protocol: Computed tomography of the abdomen and pelvis without contrast. Axial, coronal and sagittal reformatted images were created and reviewed. Total DLP: 1147.18 mGy-cm Radiation optimization: All CT scans at this facility use at least one of these dose optimization techniques: automated exposure control; mA and/or kV adjustment per patient size (includes targeted exams where dose is matched to clinical indication); or iterative reconstruction. COMPARISON: CT abdomen pelvis w con* [id number] 02/12/2019 10:28 AM FINDINGS: Lungs: Linear stranding and groundglass at the lung bases, likely due to atelectasis and/or scarring. Liver: Diffuse hepatic steatosis. Gallbladder and bile ducts: Cholelithiasis. Pancreas: Unremarkable. Spleen: Unremarkable. Adrenals: Unremarkable. Kidneys and ureters: Left renal cysts, measuring up to 2.6 x 2.1 cm. No radiodense calculi. No hydronephrosis. Stomach and bowel: No bowel wall thickening. No obstruction. No pneumatosis. Appendix: Appendix not identified with certainty but no right lower quadrant inflammatory change to suggest acute appendicitis. Intraperitoneal space: No free fluid. No organized fluid collection. No free air. Vasculature: Mild atherosclerotic disease. No aneurysm. Lymph nodes: No pathologically enlarged lymph nodes. Bladder: Unremarkable. Reproductive: Mildly enlarged, nodular prostate. Bones/joints: No acute osseous abnormality. Osteopenia. Degenerative changes. Chronic partial T11, T12, L1, L2 and L4 compression deformities. Old bilateral rib fractures. Soft tissues: Mild anasarca. CT/CT abdomen pelvis con [id number] IMPRESSION: 1. Limited noncontrast examination without CT evidence of acute intra-abdominal or pelvic pathology. 2. Additional findings, as above. Radiation Dose CTDIVOL = (mGy): DLP = 1147.18 (mGy-cm)
--- NOTE | 2019-06-04 17:49 | PM.HP ---
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 Last follow-up CT from 01/2019 showed improved renal lesion consistent with history of treated neoplasm. Local metastases was noted to femoral lymph node which is also since improved. Recent history also significant for lower extremity DVT treated with Eliquis between March 03 2019 to 1-week ago. Last followed up with oncology on May 21 at which point he was noted to be doing well. He presents to the ER today with complaining of multiple episodes of dizziness since this morning. He states he started feeling relatively unwell on Friday and started to experience nausea and vomiting. This morning he felt dizzy and believes he may have fallen. He is unaware if he hit his head. Last alcohol intake was last night. No alteration in bowel habits. Last bowel movement was this morning which was normal. Denies any abdominal pain, tenesmus. No bleeding per rectum or melena. Influenza swab a and B was negative. Labs are notable for transaminitis with normal alkaline phosphatase and total bilirubin. Of note he has a history of cholelithiasis. He states he is been having an ongoing problem with nausea and vomiting ever since he started chemotherapy. At this is apparently not improved since he stopped taking chemo. No recent history of travel. States he may have had a fever last night but is unsure. Review of Systems General: Reports: 10 or more systems reviewed and unremarkable except in HPI and below Const: Reports: chills and body aches; Denies: fever Eyes: Denies: change in vision, blurry vision or photophobia ENMT: Reports: hoarseness; Denies: throat pain, enlarged tonsils, painful swallowing or nasal congestion Card: Denies: chest pain, palpitations, irregular heart rhythm, edema, swelling of feet/ankles, lightheadedness, pre-syncope, shortness of breath on exertion or shortness of breath when lying down Resp: Denies: shortness of breath, productive cough, non-productive cough, wheezing, stridor, pain on inspiration, change in phlegm color, coughing up blood or chest congestion GI: Reports: nausea and vomiting; Denies: abdominal pain, vomiting blood, coffee grounds in vomit, difficulty swallowing, heartburn/indigestion, diarrhea, constipation, cramping, change in stool character, blood in stool or black tarry stool : Denies: flank pain, painful urination, urinary frequency, urinary urgency, urinary hesitancy or blood in urine Musc: Denies: neck pain, back pain, extremity pain, joint swelling, joint warmth or deformity Neuro: Denies: headache, numbness in extremities, weakness in extremities, changes in sensation, difficulty walking, frequent falls, dizziness, vertigo, behavioral changes, slurred speech or seizure-like activity Psych: Denies: anxiety, depression, suicidal ideation or homicidal ideation Endo: Denies: excessive urination, excessive thirst, tired all the time, cold intolerance or hot flashes Alberto/Lymph: Denies: easy bruising or easy bleeding Medications/Allergies Home Medications Medication Instructions Recorded Confirmed Last Taken Type acetaminophen [Tylenol Extra 500 mg PO Q6H PRN 06/04/19 06/04/19 Unknown History Strength] aspirin 325 mg PO DAILY 06/04/19 06/04/19 06/04/19 History lisinopril 20 mg PO DAILY 06/04/19 06/04/19 06/04/19 History lorazepam [Ativan] 0.5 - 1 mg PO TID PRN 06/04/19 06/04/19 Unknown History metoprolol succinate 12.5 mg PO BID 06/04/19 06/04/19 06/04/19 History prochlorperazine maleate 10 mg PO Q6H PRN 06/04/19 06/04/19 Unknown History [Compazine] Allergies Allergy/AdvReac Type Severity Reaction Status Date / Time corn Allergy ADR-Nausea Verified 06/04/19 09:55 pear Allergy ALGY-Rash Verified 06/04/19 09:55 Penicillins Allergy ALGY-Difficulty Verified 06/04/19 09:55 Breathing PFSH Acute PFSH: Medical History (Updated 06/04/19 @ 18:00 by Briana Nava MD) Anal cancer COPD (chronic obstructive pulmonary disease) CVA (cerebral vascular accident) DVT (deep venous thrombosis) Hypertension Social History Smoking and tobacco status: former smoker Vitals/I&O/Wt Last Vital Signs Temp 98.3 F 06/04/19 17:11 Pulse 60 06/04/19 17:11 Resp 16 06/04/19 17:11 BP 107/65 06/04/19 17:11 Pulse Ox 98 06/04/19 17:11 Weight last 48 hrs Weight 73.482 kg Physical Exam Narrative: EXAM NARRATIVE: GEN: Awake, alert and oriented, no acute distress CVS: S1S2 N RS: CTA B/L Abd: Soft, nt/nd , bs+ 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 Data : 06/04/19 09:22 06/04/19 09:22 A&P Assessment and plan (1) Acute dehydration: Status: Acute Code(s): E86.0 - Dehydration (2) Vomiting: Status: Acute Qualifiers: Nausea presence: with nausea Vomiting Intractability: intractable Vomiting type: unspecified Qualified Code(s): R11.2 - Nausea with vomiting, unspecified Code(s): R11.10 - Vomiting, unspecified (3) Dizziness: Status: Acute Code(s): R42 - Dizziness and giddiness (4) Anal cancer: Status: Acute Code(s): C21.0 - Malignant neoplasm of anus, unspecified Additional A&P Information Admit to observation IVF rehydration, prn zofran, start protonix 40mg BID CT abdomen to r/o worsening malignancy Transaminitis on labs, last hepatitis serologies with core Ab+ and surface ab+ with negative surface ag c/w past infection. Recheck serology to r/o reactivation CT head to r/o distant metastasis as caus eof dizziness check alscohol level [facility] protocol Dvt ppx: lovenox full code Attestations Medical Necessity Statement*: anticipate <2MN admission Coding Level of Care Code Acute Seasoning Mixer for Chg Fwd Diagnoses Acute dehydration E86.0 Vomiting R11.2 Nausea presence: with nausea Vomiting Intractability: intractable Vomiting type: unspecified Dizziness R42 Anal cancer C21.0
--- NOTE | 2019-06-04 17:53 | CTR_ITS ---
PROCEDURE INFORMATION: Exam: CT Head Without Contrast Exam date and time: 06/04/2019 5:54 PM Age: 68 years old Clinical indication: Injury or trauma; Initial encounter; Blunt trauma (contusions or hematomas); Without loss of consciousness; Patient HX: Dizziness and fall this am; Additional info: Dizziness, fall this morning TECHNIQUE: Imaging protocol: Computed tomography of the head without contrast. Axial, coronal and sagittal reformatted images were created and reviewed. Total DLP: 864.27 mGy-cm Radiation optimization: All CT scans at this facility use at least one of these dose optimization techniques: automated exposure control; mA and/or kV adjustment per patient size (includes targeted exams where dose is matched to clinical indication); or iterative reconstruction. COMPARISON: CT head wo con* [id number] 06/28/2018 4:32 PM FINDINGS: Brain: Patchy areas of hypoattenuation in the periventricular and subcortical white matter, consistent with chronic small vessel ischemic disease. No CT evidence of acute intracranial hemorrhage or acute territorial infarction. No significant mass effect or midline shift. Basal cisterns patent. Ventricles: Prominence of the cortical sulci, cisterns and ventricular system, consistent with cerebral and cerebellar volume loss. Bones/joints: No acute osseous abnormality. Sinuses: Brty-qu-kxdarkpa polypoid ethmoid and maxillary sinus mucosal thickening. Minimal left sphenoid and bilateral inferior frontal sinus mucosal thickening. Mastoid air cells: Partial opacification and sclerosis of the mastoid air cells. Soft tissues: Grossly unremarkable. Orbits: Left scleral banding and phthisis bulbi. CT/CT head wo con* [id number]: 1. No CT evidence of acute intracranial pathology. 2. Additional findings, as above. Radiation Dose CTDIVOL = (mGy): DLP = 864.27 (mGy-cm)
[2019-06-04 18:15] LABS: Lipase 30 U/L (13-60)
[2019-06-04 18:34] LABS: Alcohol Level < 10 mg/dL (0-10)
[2019-06-04] MEDS: enoxaparin 30 mg/0.3 mL Syringe SUBCUT (19:31)
[2019-06-04] MEDS: pantoprazole DR 40 mg Tablet PO (19:31)
[2019-06-04] MEDS: dextrose 5%-sod chloride 0.9% 1,000 ML 75 ML IV (19:32)
[2019-06-04 23:13] LABS: HIV 1 & 2 Antibody Non-Reactive (Non-Reactiv); HIV 1 & 2 Antigen Non-Reactive (Non-Reactiv)
[2019-06-05] VITALS: BP 115/78; PULSE 78; RESP 18; TEMP 36.8; O2SAT 96
--- NOTE | 2019-06-05 03:32 | PC.NURSE ---
Removed plastic bin of medications from bedside. Bin contained One bottle of lorazepam with 27 tablets inside, counted and verified with Jovany Benson RN. Bin also contained, bottled of Prochlorperazine, lisinopril, Eliquis, Tylenol, fluticasone, metoprolol, and 2 bottles of Capecitabne. Medication form was filled out and signed by pt and bin of medications was placed in [address] [place] [address].
[2019-06-05 04:00] VITALS: BP 128/70; PULSE 75; RESP 16; TEMP 36.8; O2SAT 94
[2019-06-05 05:36] LABS: Basophils % 0.3 %; Eosinophils # 0.1 10^3/uL (0.0-0.8); Hematocrit 28.1 % (42.0-52.0); Hemoglobin 9.5 g/dL (11.7-16.6); Lymphocytes # 0.7 10^3/uL (0.8-4.8); Lymphocytes % 21.8 %; Mean Corpuscular HGB Conc 33.8 g/dL (30.0-36.0); Mean Corpuscular Hemoglobin 36.7 pg (28.0-34.0); Mean Corpuscular Volume 108.5 fL (80-94); Mean Platelet Volume 10.4 fL (7.4-10.4); Monocytes # 0.6 10^3/uL (0.2-0.9); Monocytes % 18.1 %; Neutrophils # 1.8 10^3/uL (1.8-7.7); Neutrophils % 55.5 %; Nucleated Red Blood Cells % 0 %; Platelet Count 57 10^3/cmm (130-400); Red Blood Count 2.59 10^6/uL (4.1-5.3); Red Cell Distribution Width 16.8 % (12.1-15.1); White Blood Count 3.2 10^3/uL (4.0-10.0)
[2019-06-05 05:51] LABS: Alanine Aminotransferase 34 U/L (0-41); Albumin Level 2.8 g/dL (3.5-5.2); Alkaline Phosphatase 66 IU/L (40-130); Anion Gap 14.1 (5-19); Aspartate Amino Transferase 64 U/L (0-40); Blood Urea Nitrogen 16 mg/dL (8-23); Calcium 8.4 mg/dL (8.5-10.5); Carbon Dioxide 27 mmol/L (22-29); Chloride 103 mmol/L (98-107); Creatinine Clr Calc Pharmacy 85.5641; Globulin 2.8 g/dL (1.3-4.6); Glomerular Filtration Rate 84.2 mL/min (90-130); Glucose 103 mg/dL (65-115); Potassium 4.1 mmol/L (3.5-5.1); Sodium 140 mmol/L (136-145); Total Bilirubin 1.1 mg/dL (0.15-1.2); Total Protein 5.6 g/dL (6.6-8.7)
[2019-06-05 06:06] LABS: Hepatitis A Antibody IgM. Non-Reactive (Nonreactive); Hepatitis B Surface Antigen. Non-Reactive (Nonreactive); Hepatitis C Virus Antibody Non-Reactive (Nonreactive)
[2019-06-05 07:33] VITALS: BP 130/62; PULSE 78; RESP 22; TEMP 36.6; O2SAT 97
[2019-06-05] MEDS: folic acid 1 mg Tablet PO (08:12)
[2019-06-05] MEDS: dextrose 5%-sod chloride 0.9% 1,000 ML 75 ML IV (08:12)
[2019-06-05] MEDS: thiamine 100 mg Tablet PO (08:12)
[2019-06-05] MEDS: pantoprazole DR 40 mg Tablet PO (08:12)
[2019-06-05] MEDS: multivitamin therapeutic Tablet 1 TAB PO (08:12)
[2019-06-05] MEDS: aspirin 325 mg Tablet PO (08:50)
[2019-06-05] MEDS: metoprolol succinate ER (24 HR) 25 mg Tablet 12.5 MG PO (08:50)
[2019-06-05 11:29] VITALS: BP 111/67; PULSE 59; RESP 18; TEMP 36.8; O2SAT 93
--- NOTE | 2019-06-05 13:14 | PC.CHAP ---
Pastoral Care Encounter/Spiritual Assessment Type of Contact [] Declined care provider visit [] Patient/Family/Request visit [] Outpatient visit [] Follow-up visit [] Physician referral [] Code/Alert [] Routine visit [] Staff referral [] Actively dying [X] Patient sleeping [] Family support [] [] Out of room [] Palliative care [] [] Receiving care in room [] Pre-surgical visit [] Trauma [] Long length of stay [] ICU visit [] Other: Relational/Emotional Strength [] Patient feels connected with others/family/visitors/staff [] Distress [] Loneliness/isolation [] Abandonment Spirituality of Patient [] Person of Christelle [] Attends Gnosticism of their Christelle [] Believes in Prayer [] Reads Bible or Hinduism materials [] There are Spiritual issues to be addressed Silk Snapper Interventions [] Prayer [] Active listening [] Non-anxious presence [] Spiritual/emotional support [] Crisis/trauma care [] Spiritual counseling [] Bereavement support [] Provided bereavement packet [] Provided Bible/devotional materials [] Provided toy/stuffed animal, coloring book to patient or family member [] Provided Communion [] Anointing/[place] [] Salvation [] Completed spiritual assessment [] Other: Impact on Illness or Injury [] Angry [] Fearful [] Anxious [] Often cries [] Exhaustion [] Unable to work [] Unable to attend mormon [] Unable to walk/stand [] Unable to read [] Unable to drive [] Unable to eat/drink [] Unable to sleep [] Unable to be with family [] Patient intubated [] Other: Summary NEED FOLLOW UP NEXT DAY Time spent with patient
[2019-06-05 15:15] VITALS: BP 119/73; PULSE 58; RESP 18; TEMP 36.7; O2SAT 96
[2019-06-05 15:31] VITALS: BP 119/73; PULSE 58; RESP 18; TEMP 36.7; O2SAT 96
--- NOTE | 2019-06-05 19:25 | PM.DCS ---
Discharge Providers Date of Admission: 06/04/19 15:10 Date of Discharge: June 05, 2019 Attending Provider at Admission: Briana Nava MD Attending Provider at Discharge: Briana Nava MD Primary Care Provider: NATASHA LESTER DO Diagnoses at Discharge Discharge Diagnosis (1) Acute dehydration: Status: Acute (2) Vomiting: Status: Acute Qualifiers: Nausea presence: with nausea Vomiting Intractability: intractable Vomiting type: unspecified Qualified Code(s): R11.2 - Nausea with vomiting, unspecified (3) Dizziness: Status: Acute (4) Anal cancer: Status: Acute Reason for Visit Reason for Visit: Reason For Visit: shortness of breath Hospital Course Discharge Summary: Gerardo Millan is a 68 year old male with a past medical history of 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 Last follow-up CT from 01/2019 showed improved renal lesion consistent with history of treated neoplasm. Local metastases was noted to femoral lymph node which is also since improved. Recent history also significant for lower extremity DVT treated with Eliquis between March 03 2019 to 1-week ago. Last followed up with oncology on May 21 at which point he was noted to be doing well. He presented to the ER today complaining of multiple episodes of dizziness, nausea and vomiting. No alteration in bowel habits. Last bowel movement was this morning which was normal. Labs were initially notable for transaminitis with normal alkaline phosphatase and total bilirubin, which resolved over the next day with hydration. CT head and abdomen did not show any evidence of recurrent metastatic disease. He stated that he has noticed a corelation between taking lisinopril and episodes of dizziness, and could be experiencing orthostatic hypotension episodes. With lisinopril on hold during admission, his BP remained normal. This was therefore discontinued on discharge. Additionally B prema was reduced to once daily since HR was in 50s and may potentially be contributing to light headedness. He is advised to maintain a chart of BP and HR at least twice daily over the next week and bring it to his PCP on the next visit. HE is discharged in stable condition with resolution of all symptoms with hydration and supportive management. 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 Discharge Data Data Completed and Pending: Completed Studies During Hospitalization Category Date Time Status CT abdomen pelvis wo con [id number] Rout ine Cat Scan 06/04/19 17:[address] angio chest PE protcl [id number] Stat Cat Scan 06/04/19 12:[address] head wo con* 7 [id number] Routine Cat Scan 06/04/19 17:53 Completed XR chest 1V [place] ble [id number] Stat Exams 06/04/19 10:27 Completed Labs from last 24 hours 06/05/19 06/05/19 06/05/19 05:05 05:05 05:05 WBC 3.2 L RBC 2.59 L Hgb 9.5 L Hct 28.1 L MCV 108.5 H D MCH 36.7 H MCHC 33.8 RDW 16.8 H Plt Count 57 L MPV 10.4 Neut % (Auto) 55.5 Lymph % (Auto) 21.8 [place] % (Auto) 18.1 Eos % (Auto) 4.0 Baso % (Auto) 0.3 Neut # (Auto) 1.8 Lymph # (Auto) 0.7 L [place] # (Auto) 0.6 Eos # (Auto) 0.1 Baso # (Auto) 0.0 Nucleated RBC % (a uto) 0 Nucleated RBCs # 0.0 Sodium 140 Potassium 4.1 Chloride 103 Carbon Dioxide 27 Anion Gap 14.1 BUN 16 Creatinine 0.9 GFR Calculation 84.2 L Glucose 103 Calcium 8.4 L Total Bilirubin 1.1 AST 64 H ALT 34 Alkaline Phosphata se 66 Total Protein 5.6 L Albumin 2.8 L Globulin 2.8 Hepatitis A IgM Ab Non-reactive Hep Bs Antigen Non-reactive Hep Bs Antibody 2426.0 H Hep B Core Total A b Reactive H Hepatitis C Antibo dy Non-reactive HIV 1&2 Ab & HIV 1 Ag HIV 1&2 Antibody 06/04/19 09:22 WBC RBC Hgb Hct MCV MCH MCHC RDW Plt Count MPV Neut % (Auto) Lymph % (Auto) [place] % (Auto) Eos % (Auto) Baso % (Auto) Neut # (Auto) Lymph # (Auto) [place] # (Auto) Eos # (Auto) Baso # (Auto) Nucleated RBC % (a uto) Nucleated RBCs # Sodium Potassium Chloride Carbon Dioxide Anion Gap BUN Creatinine GFR Calculation Glucose Calcium Total Bilirubin AST ALT Alkaline Phosphata se Total Protein Albumin Globulin Hepatitis A IgM Ab Hep Bs Antigen Hep Bs Antibody Hep B Core Total A b Hepatitis C Antibo dy HIV 1&2 Ab & HIV 1 Ag Non-reactive HIV 1&2 Antibody Non-reactive Vitals: Last Vital Signs Temp 98.0 F 06/05/19 15:31 Pulse 58 L 06/05/19 15:31 Resp 18 06/05/19 15:31 BP 119/73 06/05/19 15:31 Pulse Ox 96 06/05/19 15:31 Discharge Plan Discharge Patient Disposition: Home, Self-Care Condition: Stable Prescriptions: Continued aspirin 325 mg Tablet 325 mg PO DAILY RF: 0 Compazine 10 mg Tablet 10 mg PO Q6H PRN (Reason: Nausea) RF: 0 Tylenol Extra Strength 500 mg Tablet 500 mg PO Q6H PRN (Reason: Pain) RF: 0 Ativan 1 mg Tablet 0.5 - 1 mg PO TID PRN (Reason: Nausea) RF: 0 Changed metoprolol succinate 25 mg Tablet Extended Release 24 Hr 12.5 mg PO DAILY 30 Days Qty: 0 RF: 0 Discontinued lisinopril 20 mg Tablet 20 mg PO DAILY RF: 0 Discharge Orders: Discharge Order (Routine); Ordered 06/05/19 Ordered By: Briana Nava Referrals: NATASHA LESTER DO [Primary Care Provider] - 7-10 days (Please call Friday to make a follow up appointment within 7-10 days. ) Discharge Diet: Usual diet Discharge Activity: Resume usual activity Patient Instructions: Lorazepam (By mouth), Prochlorperazine (By mouth), Acute Nausea and Vomiting (DC) Discharge Date/Time: 06/05/19 17:31 Discharge Attestations Time Spent in Discharge Care*: less than 30 min Quality Metrics Clinical Quality Measures During this hospital stay, did patient experience: None Coding Level of Care Code Acute Health Care Attorney for Chg Fwd Diagnoses Acute dehydration E86.0 Vomiting R11.2 Nausea presence: with nausea Vomiting Intractability: intractable Vomiting type: unspecified Dizziness R42 Anal cancer C21.0
== END 2019-06-05 17:31 | disposition home or self-care (01) ==
LOC: ER 15:09 → MEDSURG 15:43
PROVIDERS: Nurse Practitioner Family; Admitting Provider Student in an Organized Health Care Education/Training Program; Emergency Provider Emergency Medicine; Family Provider Internal Medicine; PCP Internal Medicine; Visit Provider Student in an Organized Health Care Education/Training Program
DX: E86.0 Dehydration (principal); R11.10 Vomiting, unspecified; R42 Dizziness and giddiness; C21.0 Malignant neoplasm of anus, unspecified; J44.9 Chronic obstructive pulmonary disease, unspecified; Z86.73 Personal history of transient ischemic attack (TIA), and cerebral infarction without residual deficits; Z86.718 Personal history of other venous thrombosis and embolism; I10 Essential (primary) hypertension
CPT/HCPCS: 12345; 36415; 70450; 71045; 71275; 74176; 80053; 80307; 81003; 83690; 83880; 84443; 85025; 86705; 86706; 86709; 86803; 87340; 87804; 87806; 93005; 94640; 96360; 96361; 96372; 96374; 96375; 99284; 99285; A9270; G0378; J1650; J2060; J2405; J7040; J8597; Q9967

== ENCOUNTER 2019-06-15 06:00 | Outpatient (CLI) | payer MEDICARE, MEDICAID, SELFPAY ==
[2019-06-15 16:18] LABS: D Dimer 1.19 ug/mIFEU (0-0.59)
== END 2019-06-15 06:01 | disposition home or self-care (01) ==
LOC: LAB 07-05 09:43
PROVIDERS: Family Provider Internal Medicine; Visit Provider Internal Medicine Hematology & Oncology
DX: C21.1 Malignant neoplasm of anal canal (principal)
CPT/HCPCS: 85378

== ENCOUNTER 2019-06-21 14:50 | Outpatient (CLI) | payer MEDICARE, MEDICAID, SELFPAY ==
--- NOTE | 2019-06-21 15:30 | ONC FU_ITS ---
Dr. Bonilla follow up note Patient: Gerardo Millan Unit #: [id number]: [id number] Dicatated By: Casa Bonilla M.D.Date of Visit:Jun 21, 2019 Onc Med Follow-up/Prog Note History of Present Illness: Mr. Millan is a 68-year-old gentleman with history of bowel habits changes. He underwent colonoscopy for the first-time on 10/13/2018 which showed a mass involving the right side of anal canal at the anal verge. 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 Patient denies any history of rectal bleeding or history of pelvic pain. He denied any history of nausea/vomiting, fever or chills. Has history of weight loss in the past but has regained that weight. Mr Millan has gender preference. He states he has had HIV testing in the past and it was negative. As per patient, he states he was once was told about being hepatitis C positive but when rechecked by another physician, he was told he was negative for hepatitis C. Patient has history of recurrent pneumonia requiring multiple hospitalizations. s/p concurrent therapy including Xeloda, mitomycin and daily radiation. eg mitomycin IV on days 1 and 29 and Xeloda (capecitabine) 1500 mg twice daily Friday through Friday with radiation treatments only , Day 1 and mitomycin was given on 11/26/2018 And day 29 was given on 01/07/2019 Follow-up CT scan of abdomen pelvis done on 02/12/2019 showed improved anal lesion consistent with history of treated neoplasm No metastatic disease Cholelithiasis, small esophageal hiatal hernia, Improved/resolved previously described right femoral metastatic lymph node Filling defect in the left common femoral vein may represent venous mixing artifact or DVT, sonogram was recommended Sonogram done on 03/03/2019 showed occlusive DVT visualized in left common femoral, superficial femoral, profunda, and popliteal, posterior tibial veins, and he was started on Eliquis 10 mg by mouth twice a day for 1 week on 03/03/2019 followed by 5 mg by mouth twice a day for 3 months. Follow-up venous Doppler study of left lower extremity done on 05/18/2019 showed no evidence of DVT in the left leg, d-dimer 1.12 normal being 0-0.40 in the first week of May 2019,Patient had episodes of lightheadedness , or dizziness , subsequently developed near syncopal attack for which he was taken to [facility] [place] where he was found to be hypotensive, lisinopril was discontinued and metoprolol dose was also reduced to 12.5 mg/d and because of high risk for injury due to fall and patient had completed more than 3 months of anticoagulation for lower extremity DVT, ER physician decided to discontinue Eliquis also. Came for follow-up, denies any specific complaints, no more lightheadedness or dizziness, no more near syncopal attack. No melena or hematochezia no nausea or vomiting, no new symptoms Medications: Aspirin 1 Tablet (of 325 mg) Oral daily, Centrum Silver 50+Men 1 Tablet Oral daily, Flonase Suspension Nasal PRN, Metoprolol Tartrate 0.5 Tablet (of 25 mg) Oral daily Allergies: Penicillins Review of Systems: Constitutional - Appetite is good and weight is stable. No fever, chills, hot flashes, or night sweats. Energy level is fair, ENMT - Positive for sinus congestion/drainage. No mouth sores. No sore throat or difficulty swallowing, Hematologic/Lymphatic - Pt denies bruising or bleeding today, Respiratory - Positive for shortness of breath and cough. No pleuritic pain or hemoptysis, Cardiovascular - No angina pain. No palpitations, Gastrointestinal - No nausea or vomiting. No heartburn or acid reflux. No diarrhea, no constipation. Negative for bloody stools, Genitourinary (M) - No dysuria or hematuria. No urinary frequency. No urgency or incontinence, Musculoskeletal - Pt reports chronic back pain, Neurologic - No headache, no dizziness. No numbness/paresthesias or other focal neurologic symptoms, Psychiatric - No anxiety or depression. No insomnia. Vital Signs: Performed on Jun 21, 2019 14:56 Height - 72.00 in Weight - 162.4 lbs (LOW) BSA - 1.95 sq.m BMI - 22.03 Temperature - 98.5 F Pulse - 69 /min Respiration - 24 /min BP - 126/79 mm(hg) O2 Sat - 98 % Pain - 0 Performance Status: 0 - Fully active, able to carry on all predisease activities without restrictions. (ECOG) Physical Examination: ENMT - No oral exudates, ulcers, masses, thrush or mucositis. Oropharynx clear. Tongue normal, Respiratory - Lungs are clear to auscultation without rhonchi or wheezing, Cardiovascular - Regular rate and rhythm of heart, Abdomen - Non-tender, non-distended, Good bowel sounds. No guarding or rebound tenderness. No pulsatile masses, Extremities - no edema. Lab/Imaging: Test performed on Jun 15, 2019 08:05 D-Dimer 1.19 mcg/mL Test performed on May 18, 2019 09:36 Glucose 91 mg/dL BUN 23 mg/dL Creatinine 0.9 mg/dL Cr Clearance (Est) 85.95 mL/min Sodium 141 mmol/L Potassium 4.4 mmol/L Chloride 103 mmol/L CO2 25 mmol/L Calcium 9.9 mg/dL Protein, Total 7.1 g/dL Albumin 4.1 g/dL Globulin 3.0 g/dL Bilirubin, Total 0.7 mg/dL Alkaline Phosphatase 71 IU/L AST (SGOT) 44 IU/L ALT (SGPT) 17 IU/L WBC 4.5 10^9/L RBC 3.47 10^12/L HGB 12.3 g/dL HCT 36.4 % MCV 104.9 fl MCH 35.4 pg MCHC 33.8 g/dL RDW 16.0 % Platelet Count 151 10^9/L MPV 9.7 fL Neutrophils (Gran) 2.7 10^9/L Lymphocytes 0.9 10^9/L Monocytes 0.7 10^9/L Eosinophils 0.2 10^9/L Basophils 0.0 10^9/L Manual Lymphocytes 19.7 % Manual Monocytes 15.0 % Manual Eosinophils 4.0 % Manual Basophils 0.7 % NRBCs 0.0 /100 WBC Test performed on Mar 17, 2019 10:10 Anion Gap 17.7 eGFR 55.1 mL/min Neutrophil % 55.9 % Lymphocyte % 21.5 % Monocyte % 15.5 % Eosinophil % 5.6 % Basophils % 0.5 % Impression: Keratinizing squamous cell carcinoma, moderately differentiated of anal canal per colonoscopy done on 10/13/2018 Patient with history of gender preference History of recurrent pneumonias requiring hospitalization HIV testing done in 2008 was negative. As per patient, once he was told being hepatitis C positive but rechecked by another physician he was told being negative. CT from 11/14/2018 reported a 3.4 cm anal mass with an SUV of 21.1. A 1.4 cm right femoral note had an SUV of 6 consistent with local metastatic disease. No findings to indicate additional disease. s/p concurrent therapy with Xeloda/Mitomycin and radiation. He began his first cycle on 11/26/2018. And day 29 on 01/07/2019, it was delayed due to progressive neutropenia Newly diagnosed left leg DVT on 03/03/2019, started on Eliquis 10 mg by mouth twice a day for 1 week followed by 5 mg by mouth twice a day for 3 months.discontinued by ER physician in first week of May 2019, when patient presented to emergency room with history of lightheaded dizziness and near syncopal attack. Plan: Discussed with patient regarding his lab d-dimer is 1.19 compared to 1.12 on 05/18/2019, patient was advised to continue with Eliquis because of persistently elevated d-dimer and being a cancer patient, he is a high risk but patient declined the further anticoagulation, as per patient during his recent visit [facility] for near syncopal attack, ER physician advised him to stay off anticoagulation because of risk of life-threatening bleeding due to injury due to near syncopal attack. Although with discontinuation of lisinopril and metoprolol dose adjustment, patient has no more episodes of lightheadedness or dizziness but patient, prefer observation at this point. He'll return to clinic in 3 months with CBC CMP. Patient was advised in case he has sudden shortness of breath or leg swelling or pain in the leg he need to call us or go to emergency room immediately. And he was also advised in case he has recurrence of DVT or pulmonary embolism then he'll be on anticoagulation for rest of his life unless there is a contraindication. Signed By: Casa Bonilla M.D. <<Signature on File>>
== END 2019-06-21 14:51 | disposition home or self-care (01) ==
LOC: ONCMED 14:55
PROVIDERS: Family Provider Internal Medicine; PCP Internal Medicine; Visit Provider Internal Medicine Hematology & Oncology
DX: Z01.89 Encounter for other specified special examinations (principal)

== ENCOUNTER 2019-09-17 14:27 | Outpatient (CLI) | payer MEDICARE, MEDICAID, SELFPAY ==
[2019-09-17 13:26] LABS: Basophils % 1.1 %; Eosinophils # 0.3 10^3/uL (0.0-0.8); Eosinophils % 7.9 %; Hematocrit 38.9 % (42.0-52.0); Hemoglobin 12.9 g/dL (11.7-16.6); Lymphocytes # 1.5 10^3/uL (0.8-4.8); Lymphocytes % 40.7 %; Mean Corpuscular HGB Conc 33.2 g/dL (30.0-36.0); Mean Corpuscular Hemoglobin 35.9 pg (28.0-34.0); Mean Corpuscular Volume 108.4 fL (80-94); Mean Platelet Volume 10.9 fL (7.4-10.4); Monocytes # 0.6 10^3/uL (0.2-0.9); Monocytes % 16.3 %; Neutrophils # 1.2 10^3/uL (1.8-7.7); Neutrophils % 33.7 %; Nucleated Red Blood Cells % 0 %; Platelet Count 133 10^3/cmm (130-400); Red Blood Count 3.59 10^6/uL (4.1-5.3); White Blood Count 3.6 10^3/uL (4.0-10.0)
[2019-09-17 13:57] LABS: Alanine Aminotransferase 31 U/L (0-41); Albumin Level 3.9 g/dL (3.5-5.2); Alkaline Phosphatase 112 IU/L (40-130); Anion Gap 20.1 (5-19); Aspartate Amino Transferase 97 U/L (0-40); Blood Urea Nitrogen 10 mg/dL (8-23); Calcium 9.1 mg/dL (8.5-10.5); Carbon Dioxide 25 mmol/L (22-29); Chloride 101 mmol/L (98-107); Globulin 3.1 g/dL (1.3-4.6); Glomerular Filtration Rate 112.1 mL/min (90-130); Glucose 62 mg/dL (65-115); Osmolality Calculated 288 mOsm/kg (285-295); Potassium 4.1 mmol/L (3.5-5.1); Sodium 142 mmol/L (136-145); Total Bilirubin 1.1 mg/dL (0.15-1.2)
== END 2019-09-17 14:28 | disposition home or self-care (01) ==
LOC: ONCMED 14:28
PROVIDERS: PCP Internal Medicine; Visit Provider Internal Medicine Hematology & Oncology
DX: C21.1 Malignant neoplasm of anal canal (principal)
CPT/HCPCS: 80053; 85025

== ENCOUNTER 2019-09-21 15:21 | Outpatient (CLI) | payer MEDICARE, MEDICAID, SELFPAY ==
--- NOTE | 2019-09-21 17:18 | ONC FU_ITS ---
Dr. Bonilla follow up note Patient: Gerardo Millan Unit #: [id number]: 1950 Dicatated By: Casa Bonilla M.D.Date of Visit:Sep 21, 2019 Onc Med Follow-up/Prog Note History of Present Illness: Mr. Millan is a 69-year-old gentleman with history of bowel habits changes. He underwent colonoscopy for the first-time on 10/13/2018 which showed a mass involving the right side of anal canal at the anal verge. 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 Patient denies any history of rectal bleeding or history of pelvic pain. He denied any history of nausea/vomiting, fever or chills. Has history of weight loss in the past but has regained that weight. Mr Millan has gender preference. He states he has had HIV testing in the past and it was negative. As per patient, he states he was once was told about being hepatitis C positive but when rechecked by another physician, he was told he was negative for hepatitis C. Patient has history of recurrent pneumonia requiring multiple hospitalizations. s/p concurrent therapy including Xeloda, mitomycin and daily radiation. eg mitomycin IV on days 1 and 29 and Xeloda (capecitabine) 1500 mg twice daily Friday through Friday with radiation treatments only , Day 1 and mitomycin was given on 11/26/2018 And day 29 was given on 01/07/2019 Follow-up CT scan of abdomen pelvis done on 02/12/2019 showed improved anal lesion consistent with history of treated neoplasm No metastatic disease Cholelithiasis, small esophageal hiatal hernia, Improved/resolved previously described right femoral metastatic lymph node Filling defect in the left common femoral vein may represent venous mixing artifact or DVT, sonogram was recommended Sonogram done on 03/03/2019 showed occlusive DVT visualized in left common femoral, superficial femoral, profunda, and popliteal, posterior tibial veins, and he was started on Eliquis 10 mg by mouth twice a day for 1 week on 03/03/2019 followed by 5 mg by mouth twice a day for 3 months. Follow-up venous Doppler study of left lower extremity done on 05/18/2019 showed no evidence of DVT in the left leg, d-dimer 1.12 normal being 0-0.40 in the first week of May 2019,Patient had episodes of lightheadedness , or dizziness , subsequently developed near syncopal attack for which he was taken to [facility] [place] where he was found to be hypotensive, lisinopril was discontinued and metoprolol dose was also reduced to 12.5 mg/d and because of high risk for injury due to fall and patient had completed more than 3 months of anticoagulation for lower extremity DVT, ER physician decided to discontinue Eliquis also. Came for follow-up, denies any specific complaints, no nausea or vomiting no diarrhea constipation, no melena or hematochezia, no jaundice, no abdominal pain, appetite is good Medications: Aspirin 1 Tablet (of 325 mg) Oral daily, Centrum Silver 50+Men 1 Tablet Oral daily, Flonase Suspension Nasal PRN, Metoprolol Tartrate 0.5 Tablet (of 25 mg) Oral daily Allergies: Penicillins Review of Systems: Constitutional - Appetite is good and weight is stable. No fever, chills, hot flashes, or night sweats. Energy level is fair, ENMT - Positive for sinus congestion/drainage. No mouth sores. No sore throat or difficulty swallowing, Hematologic/Lymphatic - Pt denies bruising or bleeding today, Respiratory - Positive for shortness of breath and cough. No pleuritic pain or hemoptysis, Cardiovascular - No angina pain. No palpitations, Gastrointestinal - No nausea or vomiting. No heartburn or acid reflux. No diarrhea, no constipation. Negative for bloody stools, Genitourinary (M) - No dysuria or hematuria. No urinary frequency. No urgency or incontinence, Musculoskeletal - Pt reports chronic back pain, Neurologic - No headache, no dizziness. No numbness/paresthesias or other focal neurologic symptoms, Psychiatric - No anxiety or depression. No insomnia. Vital Signs: Performed on Sep 21, 2019 15:43 Height - 72.00 in Weight - 161.8 lbs (LOW) BSA - 1.95 sq.m BMI - 21.94 Temperature - 98.9 F (HIGH) Pulse - 53 /min (LOW) Respiration - 22 /min BP - 148/83 mm(hg) (HIGH) O2 Sat - 98 % Pain - 0 Performance Status: 0 - Fully active, able to carry on all predisease activities without restrictions. (ECOG) Physical Examination: ENMT - No mouth sores, no thrush, no jaundice, Respiratory - Lungs are clear, Cardiovascular - Regular rate and rhythm of heart, Abdomen - Soft, bowel sounds present, Extremities - No visible edema. Lab/Imaging: Test performed on Jun 15, 2019 08:05 D-Dimer 1.19 mcg/mL Test performed on May 18, 2019 09:36 Glucose 91 mg/dL BUN 23 mg/dL Creatinine 0.9 mg/dL Cr Clearance (Est) 85.95 mL/min Sodium 141 mmol/L Potassium 4.4 mmol/L Chloride 103 mmol/L CO2 25 mmol/L Calcium 9.9 mg/dL Protein, Total 7.1 g/dL Albumin 4.1 g/dL Globulin 3.0 g/dL Bilirubin, Total 0.7 mg/dL Alkaline Phosphatase 71 IU/L AST (SGOT) 44 IU/L ALT (SGPT) 17 IU/L WBC 4.5 10^9/L RBC 3.47 10^12/L HGB 12.3 g/dL HCT 36.4 % MCV 104.9 fl MCH 35.4 pg MCHC 33.8 g/dL RDW 16.0 % Platelet Count 151 10^9/L MPV 9.7 fL Neutrophils (Gran) 2.7 10^9/L Lymphocytes 0.9 10^9/L Monocytes 0.7 10^9/L Eosinophils 0.2 10^9/L Basophils 0.0 10^9/L Manual Lymphocytes 19.7 % Manual Monocytes 15.0 % Manual Eosinophils 4.0 % Manual Basophils 0.7 % NRBCs 0.0 /100 WBC Impression: Keratinizing squamous cell carcinoma, moderately differentiated of anal canal per colonoscopy done on 10/13/2018 Patient with history of gender preference History of recurrent pneumonias requiring hospitalization HIV testing done in 2008 was negative. As per patient, once he was told being hepatitis C positive but rechecked by another physician he was told being negative. CT from 11/14/2018 reported a 3.4 cm anal mass with an SUV of 21.1. A 1.4 cm right femoral note had an SUV of 6 consistent with local metastatic disease. No findings to indicate additional disease. s/p concurrent therapy with Xeloda/Mitomycin and radiation. He began his first cycle on 11/26/2018. And day 29 on 01/07/2019, it was delayed due to progressive neutropenia Newly diagnosed left leg DVT on 03/03/2019, started on Eliquis 10 mg by mouth twice a day for 1 week followed by 5 mg by mouth twice a day for 3 months.discontinued by ER physician in first week of May 2019, when patient presented to emergency room with history of lightheaded dizziness and near syncopal attack. Plan: Discussed with patient regarding his labs white blood count 3.6 hemoglobin 12.9 crit 38.9 platelets 133,000 CMP within normal limits Clinically, patient is doing well with no signs symptom suggestive of recurrence of disease his lab work-up within normal range, will continue to monitor and patient return to clinic in 4 months with CBC CMP. Patient was due for follow-up colonoscopy but he is getting so he wants to postpone till next visit or after. Signed By: Casa Bonilla M.D. <<Signature on File>>
== END 2019-09-21 15:22 | disposition home or self-care (01) ==
PROVIDERS: PCP Internal Medicine; Visit Provider Internal Medicine Hematology & Oncology
DX: Z08 Encounter for follow-up examination after completed treatment for malignant neoplasm (principal); Z85.048 Personal history of other malignant neoplasm of rectum, rectosigmoid junction, and anus; Z86.718 Personal history of other venous thrombosis and embolism; Z79.82 Long term (current) use of aspirin
CPT/HCPCS: G0463

== ENCOUNTER 2020-01-26 07:35 | Outpatient (CLI) | payer MEDICARE, MEDICAID, SELFPAY ==
[2020-01-26 10:22] LABS: Basophils # 0.1 10^3/uL (0.0-0.1); Basophils % 1.5 %; Eosinophils # 0.2 10^3/uL (0.0-0.8); Eosinophils % 5.1 %; Hematocrit 39.8 % (42.0-52.0); Hemoglobin 13.6 g/dL (11.7-16.6); Lymphocytes # 1.7 10^3/uL (0.8-4.8); Lymphocytes % 37.4 %; Mean Corpuscular HGB Conc 34.2 g/dL (30.0-36.0); Mean Corpuscular Hemoglobin 36.1 pg (28.0-34.0); Mean Corpuscular Volume 105.6 fL (80-94); Mean Platelet Volume 10.4 fL (7.4-10.4); Monocytes # 0.7 10^3/uL (0.2-0.9); Monocytes % 15.4 %; Neutrophils # 1.84 10^3/uL (1.8-7.7); Neutrophils % 40.4 %; Nucleated Red Blood Cells % 0 %; Platelet Count 214 10^3/cmm (130-400); Red Blood Count 3.77 10^6/uL (4.1-5.3); Red Cell Distribution Width 15.5 % (12.1-15.1); White Blood Count 4.6 10^3/uL (4.0-10.0)
[2020-01-26 10:47] LABS: Alanine Aminotransferase 27 U/L (0-41); Albumin Level 4.2 g/dL (3.5-5.2); Alkaline Phosphatase 112 IU/L (40-130); Anion Gap 18.4 (5-19); Aspartate Amino Transferase 71 U/L (0-40); Blood Urea Nitrogen 15 mg/dL (8-23); Carbon Dioxide 23 mmol/L (22-29); Chloride 102 mmol/L (98-107); Globulin 2.7 g/dL (1.3-4.6); Glomerular Filtration Rate 112.1 mL/min (90-130); Glucose 74 mg/dL (65-115); Osmolality Calculated 287 mOsm/kg (285-295); Potassium 4.4 mmol/L (3.5-5.1); Sodium 139 mmol/L (136-145); Total Bilirubin 0.6 mg/dL (0.15-1.2); Total Protein 6.9 g/dL (6.6-8.7)
== END 2020-01-26 07:36 | disposition home or self-care (01) ==
LOC: ONCMED 13:40
PROVIDERS: PCP Internal Medicine; Visit Provider Internal Medicine Hematology & Oncology
DX: C21.1 Malignant neoplasm of anal canal (principal)
CPT/HCPCS: 80053; 85025

== ENCOUNTER 2020-01-28 05:58 | Outpatient (CLI) | payer MEDICARE, MEDICAID, SELFPAY ==
--- NOTE | 2020-01-28 12:05 | ONC FU_ITS ---
Dr. Bonilla follow up note Patient: Gerardo Millan Unit #: [id number]: 1950 Dicatated By: Casa Bonilla M.D.Date of Visit:Jan 28, 2020 Onc Med Follow-up/Prog Note History of Present Illness: Mr. Millan is a 69-year-old gentleman with history of bowel habits changes. He underwent colonoscopy for the first-time on 10/13/2018 which showed a mass involving the right side of anal canal at the anal verge. 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 Patient denies any history of rectal bleeding or history of pelvic pain. He denied any history of nausea/vomiting, fever or chills. Has history of weight loss in the past but has regained that weight. Mr Millan has gender preference. He states he has had HIV testing in the past and it was negative. As per patient, he states he was once was told about being hepatitis C positive but when rechecked by another physician, he was told he was negative for hepatitis C. Patient has history of recurrent pneumonia requiring multiple hospitalizations. s/p concurrent therapy including Xeloda, mitomycin and daily radiation. eg mitomycin IV on days 1 and 29 and Xeloda (capecitabine) 1500 mg twice daily Friday through Friday with radiation treatments only , Day 1 and mitomycin was given on 11/26/2018 And day 29 was given on 01/07/2019 Follow-up CT scan of abdomen pelvis done on 02/12/2019 showed improved anal lesion consistent with history of treated neoplasm No metastatic disease Cholelithiasis, small esophageal hiatal hernia, Improved/resolved previously described right femoral metastatic lymph node Filling defect in the left common femoral vein may represent venous mixing artifact or DVT, sonogram was recommended Sonogram done on 03/03/2019 showed occlusive DVT visualized in left common femoral, superficial femoral, profunda, and popliteal, posterior tibial veins, and he was started on Eliquis 10 mg by mouth twice a day for 1 week on 03/03/2019 followed by 5 mg by mouth twice a day for 3 months. Follow-up venous Doppler study of left lower extremity done on 05/18/2019 showed no evidence of DVT in the left leg, d-dimer 1.12 normal being 0-0.40 in the first week of May 2019,Patient had episodes of lightheadedness , or dizziness , subsequently developed near syncopal attack for which he was taken to [facility] ER where he was found to be hypotensive, lisinopril was discontinued and metoprolol dose was also reduced to 12.5 mg/d and because of high risk for injury due to fall and patient had completed more than 3 months of anticoagulation for lower extremity DVT, ER physician decided to discontinue Eliquis also. CT scan of the abdomen pelvis was done on June 04, 2019 showed no evidence of acute abdominal pelvic pathology Came for follow-up, denies any specific complaints, no fever chills, no nausea or vomiting, no diarrhea or constipation, no melena or hematochezia, no anal pain or discomfort. Medications: Metoprolol Tartrate 0.5 Tablet (of 25 mg) Oral daily Allergies: Penicillins Review of Systems: Constitutional - Appetite is good and weight is stable. No fever, chills, hot flashes, or night sweats. Energy level is fair, ENMT - Positive for sinus congestion/drainage. No mouth sores. No sore throat or difficulty swallowing, Hematologic/Lymphatic - Pt denies bruising or bleeding today, Respiratory - Positive for shortness of breath and cough. No pleuritic pain or hemoptysis, Cardiovascular - No angina pain. No palpitations, Gastrointestinal - No nausea or vomiting. No heartburn or acid reflux. No diarrhea, no constipation. Negative for bloody stools, Genitourinary (M) - No dysuria or hematuria. No urinary frequency. No urgency or incontinence, Musculoskeletal - Pt reports chronic back pain, Neurologic - No headache, no dizziness. No numbness/paresthesias or other focal neurologic symptoms, Psychiatric - No anxiety or depression. No insomnia. Vital Signs: Performed on Jan 28, 2020 11:19 Height - 72.00 in Weight - 166.8 lbs (HIGH) BSA - 1.97 sq.m BMI - 22.62 Temperature - 99.1 F (HIGH) Pulse - 68 /min Respiration - 20 /min BP - 149/84 mm(hg) (HIGH) O2 Sat - 95 % (LOW) Pain - 0 Performance Status: 0 - Fully active, able to carry on all predisease activities without restrictions. (ECOG) Physical Examination: ENMT - No mouth sores, no thrush, no jaundice, Respiratory - Lungs are clear to auscultation, Cardiovascular - Regular rate and rhythm of heart, Abdomen - Soft, bowel sounds present, Extremities - No visible edema. Lab/Imaging: Test performed on Jan 26, 2020 07:35 Sodium 139 mmol/L Potassium 4.4 mmol/L Chloride 102 mmol/L CO2 23 mmol/L Anion Gap 18.4 BUN 15 mg/dL Creatinine 0.7 mg/dL Cr Clearance (Est) 108.9900 mL/min eGFR 112.1 mL/min Glucose 74 mg/dL Osmolality - Calculated 287 mOsm/kg Calcium 9.0 mg/dL Protein, Total 6.9 g/dL Albumin 4.2 g/dL Globulin 2.7 g/dL Bilirubin, Total 0.6 mg/dL ALT (SGPT) 27 U/L AST (SGOT) 71 U/L Alkaline Phosphatase 112 IU/L WBC 4.6 10 3/uL RBC 3.77 10 6/uL HGB 13.6 g/dL HCT 39.8 % MCV 105.6 fL MCH 36.1 pg MCHC 34.2 g/dL RDW 15.5 % Platelet Count 214 10 3/cmm MPV 10.4 fL Neutrophils 1.84 10 3/uL Lymphocytes 1.7 10 3/uL Monocytes 0.7 10 3/uL Eosinophils 0.2 10 3/uL Basophils 0.1 10 3/uL Neutrophil % 40.4 % Lymphocyte % 37.4 % Monocyte % 15.4 % Eosinophil % 5.1 % Basophils % 1.5 % NRBC % 0 % Impression: Keratinizing squamous cell carcinoma, moderately differentiated of anal canal per colonoscopy done on 10/13/2018 Patient with history of gender preference History of recurrent pneumonias requiring hospitalization HIV testing done in 2008 was negative. As per patient, once he was told being hepatitis C positive but rechecked by another physician he was told being negative. CT from 11/14/2018 reported a 3.4 cm anal mass with an SUV of 21.1. A 1.4 cm right femoral note had an SUV of 6 consistent with local metastatic disease. No findings to indicate additional disease. s/p concurrent therapy with Xeloda/Mitomycin and radiation. He began his first cycle on 11/26/2018. And day 29 on 01/07/2019, it was delayed due to progressive neutropenia Newly diagnosed left leg DVT on 03/03/2019, started on Eliquis 10 mg by mouth twice a day for 1 week followed by 5 mg by mouth twice a day for 3 months.discontinued by ER physician in first week of May 2019, when patient presented to emergency room with history of lightheaded dizziness and near syncopal attack. Plan: Discussed with patient regarding his labs white blood count 4.6 hemoglobin 13.6 crit 39.8 platelets 214,000 CMP within normal limits Clinically, patient doing well with no new signs symptoms suggestive of disease progression, or recurrence. His lab work-up looks reasonable, he will return to clinic in 3 months with CBC CMP. Signed By: Casa Bonilla M.D. <<Signature on File>>
== END 2020-01-28 05:59 | disposition home or self-care (01) ==
LOC: ONCMED 06:00
PROVIDERS: PCP Internal Medicine; Visit Provider Internal Medicine Hematology & Oncology
DX: Z08 Encounter for follow-up examination after completed treatment for malignant neoplasm (principal); Z85.048 Personal history of other malignant neoplasm of rectum, rectosigmoid junction, and anus; Z86.718 Personal history of other venous thrombosis and embolism; Z92.21 Personal history of antineoplastic chemotherapy; Z92.3 Personal history of irradiation
CPT/HCPCS: G0463

== ENCOUNTER 2020-03-02 12:59 | Outpatient (CLI) | payer MEDICARE, MEDICAID, SELFPAY ==
--- NOTE | 2020-03-02 13:06 | XR_ITS ---
WS: [id number] Left hip, AP and frog-leg views, 03/02/2020 Clinical Data: GROIN PAIN, LEFT Comparison: None. Findings: No fractures or dislocations are seen. The hip joint is intact. The soft tissues are not remarkable. The adjacent pelvis is normal. XR/XR hip LT 2-3V wo/w pel* [id number] Impression: Negative left hip.
== END 2020-03-02 13:00 | disposition home or self-care (01) ==
LOC: RADWPI 13:04
PROVIDERS: PCP Family Medicine; Visit Provider Family Medicine
DX: R10.32 Left lower quadrant pain (principal)
CPT/HCPCS: 73502

== ENCOUNTER 2020-04-26 07:49 | Outpatient (CLI) | payer MEDICARE, MEDICAID, SELFPAY ==
[2020-04-26 11:13] LABS: Basophils % 0.8 %; Eosinophils # 0.3 10^3/uL (0.0-0.8); Eosinophils % 6.4 %; Hematocrit 40.5 % (42.0-52.0); Hemoglobin 13.6 g/dL (11.7-16.6); Lymphocytes # 1.8 10^3/uL (0.8-4.8); Lymphocytes % 35.3 %; Mean Corpuscular HGB Conc 33.6 g/dL (30.0-36.0); Mean Corpuscular Volume 107.1 fL (80-94); Mean Platelet Volume 10.1 fL (7.4-10.4); Monocytes # 0.7 10^3/uL (0.2-0.9); Monocytes % 14.6 %; Neutrophils # 2.12 10^3/uL (1.8-7.7); Neutrophils % 42.5 %; Nucleated Red Blood Cells % 0 %; Platelet Count 164 10^3/cmm (130-400); Red Blood Count 3.78 10^6/uL (4.1-5.3); Red Cell Distribution Width 16.2 % (12.1-15.1)
[2020-04-26 11:31] LABS: Alanine Aminotransferase 14 U/L (0-41); Alkaline Phosphatase 139 IU/L (40-130); Anion Gap 17.6 (5-19); Aspartate Amino Transferase 32 U/L (0-40); Blood Urea Nitrogen 17 mg/dL (8-23); Calcium 9.5 mg/dL (8.5-10.5); Carbon Dioxide 25 mmol/L (22-29); Chloride 103 mmol/L (98-107); Globulin 3.1 g/dL (1.3-4.6); Glomerular Filtration Rate 112.1 mL/min (90-130); Glucose 77 mg/dL (65-115); Osmolality Calculated 292 mOsm/kg (285-295); Potassium 4.6 mmol/L (3.5-5.1); Sodium 141 mmol/L (136-145); Total Bilirubin 0.5 mg/dL (0.15-1.2); Total Protein 7.1 g/dL (6.6-8.7)
== END 2020-04-26 07:50 | disposition home or self-care (01) ==
LOC: ONCMED 14:38
PROVIDERS: PCP Family Medicine; Visit Provider Internal Medicine Hematology & Oncology
DX: C21.1 Malignant neoplasm of anal canal (principal)
CPT/HCPCS: 80053; 85025

== ENCOUNTER 2020-04-28 05:44 | Outpatient (CLI) | payer MEDICARE, MEDICAID, SELFPAY ==
--- NOTE | 2020-04-28 11:21 | ONC FU_ITS ---
Dr. Bonilla follow up note Patient: Gerardo Millan Unit #: [id number]: 1950 Dicatated By: Casa Bonilla M.D.Date of Visit:Apr 28, 2020 Onc Med Follow-up/Prog Note History of Present Illness: Mr. Millan is a 69-year-old gentleman with history of bowel habits changes. He underwent colonoscopy for the first-time on 10/13/2018 which showed a mass involving the right side of anal canal at the anal verge. 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 Patient denies any history of rectal bleeding or history of pelvic pain. He denied any history of nausea/vomiting, fever or chills. Has history of weight loss in the past but has regained that weight. Mr Millan has gender preference. He states he has had HIV testing in the past and it was negative. As per patient, he states he was once was told about being hepatitis C positive but when rechecked by another physician, he was told he was negative for hepatitis C. Patient has history of recurrent pneumonia requiring multiple hospitalizations. s/p concurrent therapy including Xeloda, mitomycin and daily radiation. eg mitomycin IV on days 1 and 29 and Xeloda (capecitabine) 1500 mg twice daily Friday through Friday with radiation treatments only , Day 1 and mitomycin was given on 11/26/2018 And day 29 was given on 01/07/2019 Follow-up CT scan of abdomen pelvis done on 02/12/2019 showed improved anal lesion consistent with history of treated neoplasm No metastatic disease Cholelithiasis, small esophageal hiatal hernia, Improved/resolved previously described right femoral metastatic lymph node Filling defect in the left common femoral vein may represent venous mixing artifact or DVT, sonogram was recommended Sonogram done on 03/03/2019 showed occlusive DVT visualized in left common femoral, superficial femoral, profunda, and popliteal, posterior tibial veins, and he was started on Eliquis 10 mg by mouth twice a day for 1 week on 03/03/2019 followed by 5 mg by mouth twice a day for 3 months. Follow-up venous Doppler study of left lower extremity done on 05/18/2019 showed no evidence of DVT in the left leg, d-dimer 1.12 normal being 0-0.40 in the first week of May 2019,Patient had episodes of lightheadedness , or dizziness , subsequently developed near syncopal attack for which he was taken to [facility] ER where he was found to be hypotensive, lisinopril was discontinued and metoprolol dose was also reduced to 12.5 mg/d and because of high risk for injury due to fall and patient had completed more than 3 months of anticoagulation for lower extremity DVT, ER physician decided to discontinue Eliquis also. CT scan of the abdomen pelvis was done on June 04, 2019 showed no evidence of acute abdominal pelvic pathology Came for follow-up, denies any specific complaints, no fever chills, no nausea or vomiting, no diarrhea constipation, no pain or discomfort in anal area. Patient said he is scheduled see Dr. Feliz for colonoscopy on June 20, 2020 Medications: Metoprolol Tartrate 0.5 Tablet (of 25 mg) Oral daily Allergies: Penicillins Review of Systems: Constitutional - Appetite is good and weight is stable. No fever, chills, hot flashes, or night sweats. Energy level is fair, ENMT - Positive for sinus congestion/drainage. No mouth sores. No sore throat or difficulty swallowing, Hematologic/Lymphatic - Pt denies bruising or bleeding today, Respiratory - Positive for shortness of breath and cough. No pleuritic pain or hemoptysis, Cardiovascular - No angina pain. No palpitations, Gastrointestinal - No nausea or vomiting. No heartburn or acid reflux. No diarrhea, no constipation. Negative for bloody stools, Genitourinary (M) - No dysuria or hematuria. No urinary frequency. No urgency or incontinence, Musculoskeletal - Pt reports chronic back pain, Neurologic - No headache, no dizziness. No numbness/paresthesias or other focal neurologic symptoms, Psychiatric - No anxiety or depression. No insomnia. Vital Signs: Performed on Apr 28, 2020 10:40 Height - 72.00 in Weight - 170.0 lbs (HIGH) BSA - 1.99 sq.m BMI - 23.06 Temperature - 99.4 F (HIGH) Pulse - 73 /min Respiration - 16 /min BP - 137/82 mm(hg) O2 Sat - 99 % Pain - 0 Performance Status: 0 - Fully active, able to carry on all predisease activities without restrictions. (ECOG) Physical Examination: ENMT - No mouth sores, no thrush, no jaundice, Respiratory - Lungs are clear to auscultation, Cardiovascular - Regular rate and rhythm of heart, Abdomen - Soft, bowel sounds present, Extremities - No visible edema or rash. Lab/Imaging: Test performed on Jan 26, 2020 07:35 Sodium 139 mmol/L Potassium 4.4 mmol/L Chloride 102 mmol/L CO2 23 mmol/L Anion Gap 18.4 BUN 15 mg/dL Creatinine 0.7 mg/dL Cr Clearance (Est) 108.9900 mL/min eGFR 112.1 mL/min Glucose 74 mg/dL Osmolality - Calculated 287 mOsm/kg Calcium 9.0 mg/dL Protein, Total 6.9 g/dL Albumin 4.2 g/dL Globulin 2.7 g/dL Bilirubin, Total 0.6 mg/dL ALT (SGPT) 27 U/L AST (SGOT) 71 U/L Alkaline Phosphatase 112 IU/L WBC 4.6 10 3/uL RBC 3.77 10 6/uL HGB 13.6 g/dL HCT 39.8 % MCV 105.6 fL MCH 36.1 pg MCHC 34.2 g/dL RDW 15.5 % Platelet Count 214 10 3/cmm MPV 10.4 fL Neutrophils 1.84 10 3/uL Lymphocytes 1.7 10 3/uL Monocytes 0.7 10 3/uL Eosinophils 0.2 10 3/uL Basophils 0.1 10 3/uL Neutrophil % 40.4 % Lymphocyte % 37.4 % Monocyte % 15.4 % Eosinophil % 5.1 % Basophils % 1.5 % NRBC % 0 % Impression: Keratinizing squamous cell carcinoma, moderately differentiated of anal canal per colonoscopy done on 10/13/2018 Patient with history of gender preference History of recurrent pneumonias requiring hospitalization HIV testing done in 2008 was negative. As per patient, once he was told being hepatitis C positive but rechecked by another physician he was told being negative. CT from 11/14/2018 reported a 3.4 cm anal mass with an SUV of 21.1. A 1.4 cm right femoral note had an SUV of 6 consistent with local metastatic disease. No findings to indicate additional disease. s/p concurrent therapy with Xeloda/Mitomycin and radiation. He began his first cycle on 11/26/2018. And day 29 on 01/07/2019, it was delayed due to progressive neutropenia Newly diagnosed left leg DVT on 03/03/2019, started on Eliquis 10 mg by mouth twice a day for 1 week followed by 5 mg by mouth twice a day for 3 months.discontinued by ER physician in first week of May 2019, when patient presented to emergency room with history of lightheaded dizziness and near syncopal attack. Plan: Discussed with patient regarding his labs white blood count 5 hemoglobin 13.6 hematocrit 40.5 platelets 164,000 CMP within normal limits Clinically, patient doing well with no signs symptoms suggestive of recurrence of disease his lab work-up is within normal range, patient scheduled for follow-up colonoscopy in May 2020, we will also consider follow-up MRI scan of the pelvis prior to his return visit in 2-1/2 months with CBC CMP Signed By: Casa Bonilla M.D. <<Signature on File>>
== END 2020-04-28 05:45 | disposition home or self-care (01) ==
LOC: ONCMED 05:47
PROVIDERS: PCP Family Medicine; Visit Provider Internal Medicine Hematology & Oncology
DX: Z08 Encounter for follow-up examination after completed treatment for malignant neoplasm (principal); Z85.048 Personal history of other malignant neoplasm of rectum, rectosigmoid junction, and anus; Z86.718 Personal history of other venous thrombosis and embolism; Z92.3 Personal history of irradiation; Z92.21 Personal history of antineoplastic chemotherapy
CPT/HCPCS: G0463

== ENCOUNTER 2020-05-12 08:44 | Outpatient (CLI) | payer MEDICARE, MEDICAID, SELFPAY ==
--- NOTE | 2020-05-12 08:47 | MR_ITS ---
WS: [id number] MRI PELVIS NONCONTRAST TECHNIQUE: Axial T1, axial T2 fat sat, coronal T1, coronal STIR, sagittal T2 fat sat, sagittal T1, an d sagittal T2 fat sat, of both hips. Gadolinium was not administered due to history of contrast aller gy. CLINICAL INFORMATION: RECTAL CANCER COMPARISON: CT June 04, 2019, , and PET/CT FINDINGS: Images somewhat degraded by patient motion. History of treated rectal neoplasm. Evidence of prior treatment-related changes involving the pelvis and perirectal soft tissues. Normal perirectal fat. Distal sigmoid colon and and rectum are normal in appearance. No perirectal lymph nodes. No free fluid in the pelvis. No pelvic or inguinal lymphadeno darek. No evidence of recurrent or progressed disease soft tissue disease. Prominent prostate measuring 4.1 x 3.3 CM. Diffuse soft tissue anasarca involving the pelvic soft tis sues. Abnormal T2 hyperintense bone marrow signal involving the left greater than right anterior acet abulum and left superior pubic ramus at the pubic symphysis likely due to healing nondisplaced fractu res. Edema in the ilium and sacrum adjacent to the SI joints. Edema in the sacral ala with visualized frac ture lines consistent with sacral insufficiency fractures. Recommend correlation with sacral pain. No rmal sacrococcygeal junction. MR/MR pelvis wo con* [id number] IMPRESSION: 1. Diffuse edema in the sacral ala and adjacent ileum bilaterally with fractur e clefts consistent with sacral insufficiency fractures. Recommend correlation with sacral pain. 2. Additional replacement normal bone marrow signal with edema involving the l eft greater than right anterior acetabulum and left superior pubic ramus at the pubic symphysis likely due to healing nondisplaced fractures. Correlation with history of trauma. Metastatic disease is unlikely. Recommend correlation with history of trauma. 3. Distal sigmoid and rectum are normal in appearance. Normal perirectal fat. No evidence of progressed sigmoid or rectal disease. No perirectal lymph nodes. 4. No pelvic or inguinal lymphadenopathy. 5. Diffuse pelvic soft tissue and body wall anasarca.
== END 2020-05-12 08:45 | disposition home or self-care (01) ==
LOC: RADSHAW 08:45
PROVIDERS: PCP Family Medicine; Visit Provider Internal Medicine Hematology & Oncology
DX: C21.1 Malignant neoplasm of anal canal (principal); R60.0 Localized edema
CPT/HCPCS: 72195

== ENCOUNTER 2020-09-19 21:30 | Inpatient (IN) | payer MEDICARE, MEDICAID, SELFPAY ==
[2020-09-19 21:31] VITALS: BP 136/84; PULSE 68; RESP 14; TEMP 36.6; O2SAT 100; BMI 21.9
[2020-09-19 21:36] VITALS: PULSE 65; RESP 15; O2SAT 100
--- NOTE | 2020-09-19 21:51 | CTR_ITS ---
PROCEDURE INFORMATION: Exam: CT Abdomen And Pelvis With Contrast Exam date and time: 09/19/2020 9:51 PM Age: 70 years old Clinical indication: Nausea and vomiting; Abdominal pain; Generalized; Patient HX: Abd pain with n/v. History of rectal cancer. TECHNIQUE: Imaging protocol: Computed tomography of the abdomen and pelvis with contrast. Total images: 229 Radiation optimization: All CT scans at this facility use at least one of these dose optimization techniques: automated exposure control; mA and/or kV adjustment per patient size (includes targeted exams where dose is matched to clinical indication); or iterative reconstruction. Contrast material: VISI 320; Contrast volume: 95 ml; Contrast route: INTRAVENOUS (IV); COMPARISON: 1. MR pelvis wo con* [id number] 05/12/2020 9:[address] abdomen pelvis wo con [id number] 06/04/2019 6:51 PM RADIATION DOSE METRICS: Total DLP (mGy-cm): 1338.02 FINDINGS: Lungs: Limited assessment of the lung bases fails to reveal evidence for active cardiopulmonary process. Mild dependent atelectasis. COPD/chronic bronchitis. Mild cardiomegaly. No visible pericardial effusion. Mediastinal space: Small hiatal hernia. Liver: Marked diffuse fatty infiltration of the liver. No visible hepatic mass or cystic structure. Gallbladder and bile ducts: Cholelithiasis. Gallbladder is contracted but there is evidence of a small amount of pericholecystic fluid. Cannot exclude acute calculus cholecystitis or acute exacerbation of chronic calculus cholecystitis. Mild reactive proximal duodenitis adjacent to the inflamed gallbladder. Pancreas: Pancreas is unremarkable. No visible pancreatic ductal ectasia. Spleen: Spleen unremarkable. Adrenal glands: Adrenal glands unremarkable. Kidneys and ureters: No hydronephrosis or perinephric fluid. No visible nephrolithiasis. Stable bilateral simple renal cortical cysts the largest equator left kidney dimensions approximately 30 mm maximum diameter. No follow-up recommended. Stomach and bowel: Mild reactive proximal duodenitis adjacent to the inflamed gallbladder. Nonobstructive bowel pattern. No evidence of significant generalized adynamic or reactive ileus. No evidence for significant diverticulosis coli or diverticulitis. The majority of the colon is decompressed. Appendix: The appendix is not visualized presumed surgically absent but if present is certainly noninflamed. Intraperitoneal space: No visible pneumoperitoneum or intraperitoneal ascites. Vasculature: Portal vein patent. The abdominal aorta is nonaneurysmal. Mild arteriosclerosis. Lymph nodes: Unremarkable. No visible enlarged lymph nodes. Urinary bladder: Urinary bladder unremarkable. Reproductive: Mild prostate hypertrophy. Bones/joints: No visible acute osseous abnormality. Findings of a suspected old left pubis fracture. Old compression deformities of the thoracolumbar spine stable. No visible recent compression fracture. Osteopenia. Mild scoliotic curvature. No visible active osteolytic or osteoblastic destructive process. Soft tissues: Unremarkable for age. CT/CT abdomen pelvis w con* [id number] IMPRESSION: 1. Cholelithiasis. Gallbladder is contracted but there is evidence of a small amount of pericholecystic fluid. Cannot exclude acute calculus cholecystitis or acute exacerbation of chronic calculus cholecystitis. 2. Mild reactive proximal duodenitis adjacent to the inflamed gallbladder. Radiation Dose CTDIVOL = (mGy): DLP = 1338.02 (mGy-cm)
--- NOTE | 2020-09-19 21:54 | W.ED.ABDPA2 ---
HPI - Abdominal Pain General: Chief Complaint: Abdominal Pain Stated Complaint: n/v Time Seen by Provider: 09/19/20 21:32 Source: patient and EMS Mode of arrival: EMS Limitations: no limitations History of Present Illness: HPI narrative: 70-year-old male who states that he has had abdominal pain over the last 2 days. He states been a cramping type pain in the center of his abdomen is also had multiple episodes of vomiting. States has not been able to tolerate p.o. fluids or solids. He denies any diarrhea. Denies any worsening proving factors. Denies any fevers. States pain is currently epigastric and rates it a 2 out of 10. Associated Symptoms: Reports nausea and vomiting; Denies chills, dysuria and fever(s) Review of Systems Const: Denies: fever(s), chills, body aches or change in appetite Eyes: Denies: blurry vision or eye discomfort ENMT: Denies: throat pain or dental pain Card: Denies: chest pain Resp: Denies: dyspnea GI: Reports: abdominal pain, nausea and vomiting : Denies: dysuria Musc: Denies: neck pain or back pain Skin/Breast: Denies: rash Neuro: Denies: headache(s) Psych: Denies: depression Alberto/Lymph: Denies: easy bruising All/Imm: Denies: urticaria PFSH ED PFSH: Medical History Anal cancer COPD (chronic obstructive pulmonary disease) CVA (cerebral vascular accident) DVT (deep venous thrombosis) Hypertension Status post chemoradiation Surgical History Status post colonoscopy Family History (Updated 09/20/20 @ 01:17 by Michael Osborn MD) Other Family history non-contributory Social History (Updated 09/20/20 @ 01:18 by Michael Osborn MD) Smoking and tobacco status: current every day smoker cigarettes Packs smoked per day: 0.5 Alcohol intake: current Alcohol intake frequency: 3 or more drinks per day Alcohol use comment: Vodka Substance/Drug Use: never Household members: family Housing: House History of recent travel: Yes Physical Exam Const: COMMON NORMALS: no acute distress, patient oriented x3 and healthy appearing HENMT: COMMON NORMALS: normocephalic and atraumatic HEAD & SCALP: normocephalic and atraumatic Eye: COMMON NORMALS: Equal, round and reactive pupils present and EOMs intact bilaterally PUPIL: Yes Equal, round and reactive pupils present Neck/C-Spine: COMMON NORMALS: full ROM and supple Chest: COMMONS NORMALS: normal inspection of the chest and normal palpation of entire chest wall Resp: COMMON NORMALS: normal respiratory effort, No retractions, No use of accessory muscles and clear to auscultation bilaterally AUSCULTATION: clear to auscultation bilaterally Cardio: COMMON NORMALS: regular rate, regular rhythm and No murmurs present (Cardio) RATE: regular rate RHYTHM: regular rhythm GI: COMMON NORMALS: Normal to inspection, nondistended, normoactive bowel sounds present, Soft to palpation, non-tender and no masses PALPATION: Yes Soft to palpation Extremity: COMMON NORMALS: normal to inspection and full ROM Neuro: COMMON NORMALS: patient oriented x3, moves all extremities and no focal motor deficits Psych: COMMON NORMALS: mental status grossly normal, Normal thought process present and cooperative THOUGHT PROCESS: Normal thought process present Skin: COMMON NORMALS: no rashes or lesions noted and no wounds GENERAL SKIN EXAM: no rashes or lesions noted Course Vital Signs: Vital signs: Vital Signs Temperature 97.9 F 09/19/20 21:31 Pulse Rate 58 L 09/20/20 00:29 Respiratory Rate 16 09/20/20 00:29 Blood Pressure 142/79 09/20/20 00:29 Pulse Oximetry 98 09/20/20 00:29 MDM - Abdominal Pain MDM Narrative: Medical decision making narrative: Gerardo presents here with abdominal pain along with vomiting is found to have a pancreatitis. Ultrasound shows no common bile duct dilatation. He is well-appearing here and feels improved after nausea medicine. Spoke to the hospitalist and will admit at this time. Lab Data: Labs: Lab Results 09/19/20 09/19/20 Range/Units 21:40 21:40 WBC 6.6 (4.0-10.0) 10^3/ uL RBC 3.69 L (4.1-5.3) 10^6/u L Hgb 13.3 (11.7-16.6) g/dL Hct 39.3 L (42.0-52.0) % MCV 106.5 H (80-94) fL MCH 36.0 H (28.0-34.0) pg MCHC 33.8 (30.0-36.0) g/dL RDW 15.1 (12.1-15.1) % Plt Count 189 (130-400) 10^3/c mm MPV 10.4 (7.4-10.4) fL Neut % (Auto) 80.8 % Lymph % (Auto) 6.2 % [place] % (Auto) 11.6 % Eos % (Auto) 0.2 % Baso % (Auto) 0.9 % Neut # (Auto) 5.35 (1.8-7.7) 10^3/u L Lymph # (Auto) 0.4 L (0.8-4.8) 10^3/u L [place] # (Auto) 0.8 (0.2-0.9) 10^3/u L Eos # (Auto) 0.0 (0.0-0.8) 10^3/u L Baso # (Auto) 0.1 (0.0-0.1) 10^3/u L Nucleated RBC % (a uto) 0 % Nucleated RBCs # 0.0 /100WBC Sodium 139 (136-145) mmol/L Potassium 4.8 (3.5-5.1) mmol/L Chloride 99 (98-107) mmol/L Carbon Dioxide 13 L (22-29) mmol/L Anion Gap 31.8 H (5-19) BUN 17 (8-23) mg/dL Creatinine 0.7 (0.7-1.2) mg/dL GFR Calculation 111.8 (90-130) mL/min Glucose 92 (65-115) mg/dL Calculated Osmolal ity 289 (285-295) mOsm/k g Calcium 9.2 (8.5-10.5) mg/dL Total Bilirubin 0.9 (0.15-1.2) mg/dL AST 44 H (0-40) U/L ALT 23 (0-41) U/L Alkaline Phosphata se 87 (40-130) IU/L Total Protein 6.3 L (6.6-8.7) g/dL Albumin 4.2 (3.5-5.2) g/dL Globulin 2.1 (1.3-4.6) g/dL Lipase 2450 H (13-60) U/L Discharge Plan Discharge Patient Disposition: Admitted As Inpatient Admit Provider: Michael Osborn Clinical Impression: Vomiting Pancreatitis Qualifiers: Chronicity: acute Pancreatitis type: unspecified pancreatitis type Acute pancreatitis complication: unspecified Qualified Code(s): K85.90 - Acute pancreatitis without necrosis or infection, unspecified Condition: Stable Coding Level of Care Code ED Retail Chain Store Area Supervisor for Chg Fwd Exam Comprehensive
[2020-09-19 22:04] LABS: Basophils # 0.1 10^3/uL (0.0-0.1); Basophils % 0.9 %; Eosinophils % 0.2 %; Hematocrit 39.3 % (42.0-52.0); Hemoglobin 13.3 g/dL (11.7-16.6); Lymphocytes # 0.4 10^3/uL (0.8-4.8); Lymphocytes % 6.2 %; Mean Corpuscular HGB Conc 33.8 g/dL (30.0-36.0); Mean Corpuscular Volume 106.5 fL (80-94); Mean Platelet Volume 10.4 fL (7.4-10.4); Monocytes # 0.8 10^3/uL (0.2-0.9); Monocytes % 11.6 %; Neutrophils # 5.35 10^3/uL (1.8-7.7); Neutrophils % 80.8 %; Nucleated Red Blood Cells % 0 %; Platelet Count 189 10^3/cmm (130-400); Red Blood Count 3.69 10^6/uL (4.1-5.3); Red Cell Distribution Width 15.1 % (12.1-15.1); White Blood Count 6.6 10^3/uL (4.0-10.0)
[2020-09-19] MEDS: sodium chloride 0.9% 1,000 ML 999 ML IV ×2 (22:09→23:06)
[2020-09-19] MEDS: ondansetron 2 mg/ML SDV 2 mL 4 MG IVP (22:09)
[2020-09-19 22:12] VITALS: BP 146/81; PULSE 61; RESP 18; O2SAT 100
[2020-09-19 22:34] LABS: Alanine Aminotransferase 23 U/L (0-41); Albumin Level 4.2 g/dL (3.5-5.2); Alkaline Phosphatase 87 IU/L (40-130); Blood Urea Nitrogen 17 mg/dL (8-23); Calcium 9.2 mg/dL (8.5-10.5); Carbon Dioxide 13 mmol/L (22-29); Chloride 99 mmol/L (98-107); Creatinine Clr Calc Pharmacy 93.6224; Globulin 2.1 g/dL (1.3-4.6); Glomerular Filtration Rate 111.8 mL/min (90-130); Glucose 92 mg/dL (65-115); Osmolality Calculated 289 mOsm/kg (285-295); Sodium 139 mmol/L (136-145); Total Bilirubin 0.9 mg/dL (0.15-1.2); Total Protein 6.3 g/dL (6.6-8.7)
[2020-09-19 22:43] LABS: Anion Gap 31.8 (5-19); Aspartate Amino Transferase 44 U/L (0-40); Lipase 2450 U/L (13-60); Potassium 4.8 mmol/L (3.5-5.1)
[2020-09-19] MEDS: iodixanol 320 mg/mL 100mL Btl IV (22:47)
[2020-09-20] VITALS (9 sets, daily range): BP systolic 96–142; BP diastolic 55–83; PULSE 54–78; RESP 16–18; TEMP 36.7–37.2; O2SAT 93–100
--- NOTE | 2020-09-20 00:21 | USR_ITS ---
PROCEDURE INFORMATION: Exam: US Abdomen, Limited; Right Upper Quadrant Exam date and time: 09/20/2020 12:21 AM Age: 70 years old Clinical indication: Abdominal pain; Acute; Additional info: Abd pain TECHNIQUE: Imaging protocol: US abdomen. Real time ultrasound with image documentation. Limited exam focused on the right upper quadrant. COMPARISON: 1. CT abdomen pelvis w con* [id number] 09/19/2020 10:[address] abdomen pelvis wo con [id number] 06/04/2019 6:51 PM FINDINGS: Liver: Fatty infiltration of the liver. Gallbladder: Contracted gallbladder with moderate wall thickening. Common bile duct: No dilatation in its visualized portion. Pancreas: The visualized portion of the pancreas is unremarkable. Right kidney: Unremarkable. No mass. No hydronephrosis. No stones. US/US gall bladder [id number] IMPRESSION: 1. Contracted gallbladder with moderate wall thickening. Wall thickening is most likely related to the spread of peripancreatic inflammatory changes rather than acute cholecystitis given gallbladder contraction. 2. Fatty infiltration of the liver.
--- NOTE | 2020-09-20 01:14 | PM.HP ---
Providers/Chief Complaint Admitting Physician: Michael Osborn MD Primary Care Provider: Medardo Marsh MD Chief Complaint: n/v History of Present Illness Gerardo Millan is a 70 year old male who presented today with chief complaint of abdominal pain and recurrent nausea vomiting. Patient is stating that his symptoms started about 2 to 3 days ago. He drinks vodka on daily basis. Does smoke half a pack a day. Lives with his brother. Symptoms started with abdominal pain which gradually got worse, epigastric pain, associated with nausea and vomiting, has had 5-7 episodes without any hematemesis, chest pain, shortness of breath, fever or blood in stool. Diagnosis in the ER revealed normal CBC, BMP, he has chronic sinus bradycardia, lipase high, CT abdomen revealed cholelithiasis duodenitis CT abdomen did not reveal pancreatic inflammation, I have requested gallbladder ultrasound to rule out choledocholithiasis however there is no sign of cholangitis or sepsis. CT/CT abdomen pelvis w con* [id number] IMPRESSION: 1. Cholelithiasis. Gallbladder is contracted but there is evidence of a small amount of pericholecystic fluid. Cannot exclude acute calculus cholecystitis or acute exacerbation of chronic calculus cholecystitis. 2. Mild reactive proximal duodenitis adjacent to the inflamed gallbladder. Review of Systems Const: Reports: chills, body aches, fatigue and malaise Eyes: Denies: change in vision ENMT: Denies: throat pain Card: Denies: chest pain Resp: Denies: dyspnea GI: Reports: abdominal pain, nausea and vomiting : Denies: flank pain Musc: Denies: neck pain Skin/Breast: Denies: rash Neuro: Denies: headache(s) Psych: Denies: anxiety Endo: Denies: polyuria Alberto/Lymph: Denies: easy bruising All/Imm: Denies: urticaria Medications/Allergies Home Medications Medication Instructions Recorded Confirmed Last Taken Type Ativan 0.5 - 1 mg PO TID PRN 06/04/19 08/22/20 Unknown History Compazine 10 mg PO Q6H PRN 06/04/19 08/22/20 Unknown History Tylenol Extra Strength 500 mg PO Q6H PRN 06/04/19 08/22/20 Unknown History aspirin 325 mg PO DAILY 06/04/19 08/22/20 06/04/19 History metoprolol succinate 12.5 mg PO DAILY 30 Days #0 tab 06/05/19 08/22/20 06/04/19 Rx Allergies Allergy/AdvReac Type Severity Reaction Status Date / Time corn Allergy ADR-Nausea Verified 09/19/20 21:36 pear Allergy ALGY-Rash Verified 09/19/20 21:36 Penicillins Allergy ALGY-Difficulty Verified 09/19/20 21:36 Breathing PFSH Acute PFSH: Medical History Anal cancer COPD (chronic obstructive pulmonary disease) CVA (cerebral vascular accident) DVT (deep venous thrombosis) Hypertension Status post chemoradiation Surgical History Status post colonoscopy Family History (Updated 09/20/20 @ 01:17 by Michael Osborn MD) Other Family history non-contributory Social History (Updated 09/20/20 @ 01:18 by Michael Osborn MD) Smoking and tobacco status: current every day smoker cigarettes Packs smoked per day: 0.5 Alcohol intake: current Alcohol intake frequency: 3 or more drinks per day Alcohol use comment: Vodka Substance/Drug Use: never Household members: family Housing: House History of recent travel: Yes Vitals/I&O/Wt Last Vital Signs Temp 97.9 F 09/19/20 21:31 Pulse 58 L 09/20/20 00:29 Resp 16 09/20/20 00:29 BP 142/79 09/20/20 00:29 Pulse Ox 98 09/20/20 00:29 Weight last 48 hrs Weight 73.482 kg Physical Exam Narrative: EXAM NARRATIVE: male who was lying comfortably in his bed when entered the room No active distress chest pain or shortness of breath Midepigastric tenderness, right upper quadrant tenderness on deep palpation Ochoa sign positive S1, S2 no signs of heart failure No acute respiratory distress EOMI, PERRLA No neurological deficits No joint swelling signs cellulitis or gangrene Appropriate mood and affect Clinically looks dehydrated Data : 09/19/20 21:40 09/19/20 21:40 A&P Assessment and plan (1) Pancreatitis: Status: Acute Qualifiers: Acute pancreatitis complication: unspecified Chronicity: acute Pancreatitis type: unspecified pancreatitis type Qualified Code(s): K85.90 - Acute pancreatitis without necrosis or infection, unspecified (2) Cholelithiasis: Status: Acute (3) Acute dehydration: Status: Acute Additional A&P Information Recurrent nausea and vomiting CT abdomen reveals duodenitis, he has lipase [address] abdomen pelvis did not reveal pancreatic inflammation he does show signs of cholelithiasis, no signs of sepsis or cholangitis, requested on ultrasound to rule out choledocholithiasis, Patient endorses to smoking every day and drinking vodka, last drink was 4 days ago, check alcohol level Start CIWA protocol N.p.o. D5 LR maintenance fluid Dilaudid for analgesia Full code DVT prophylaxis Lovenox If ultrasound shows any signs of choledocholithiasis he will be transferred from the ER, ER physician notified Attestations Medical Necessity Statement*: Anticipating stay in the hospital cross more than 2 midnights for pancreatitis/duodenitis Time Spent in Patient Care: (>than 50% of time spent in counselling and/or direct pt care on unit). 40mins Coding Level of Care Code Acute Embedded Firmware Developer for [facility] Fwd Diagnoses Pancreatitis K85.90 Acute pancreatitis complication: unspecified Chronicity: acute Pancreatitis type: unspecified pancreatitis type Cholelithiasis K80.20 Acute dehydration E86.0
--- NOTE | 2020-09-20 01:47 | NM_ITS ---
WS: [id number] NUCLEAR MEDICINE HIDA SCAN WITH GALLBLADDER EJECTION FRACTION HISTORY: Positive Ochoa sign, recurrent nausea vomiting COMPARISON: Gallbladder ultrasound 09/20/2020 TECHNIQUE: The patient was intravenously injected with 4.7 mCi of TC99m Mebrofenin. Immediate imaging over the right upper quadrant was followed by 5 minute image and additional images for a total of 60 minutes. Normal uptake of radiotracer throughout the liver. Activity identified in the gallbladder at 20 minutes and minimally distended by 60 minutes. Activity in the proximal small bowel was seen by 10 minutes. Good washout of the radiotracer from the liver by 60 minutes. The patient then drank 8 ounces of Ensure Plus. Ejection fraction at 60 minutes was 94%. Normal GB ej ection fraction is 35-75%. Post fatty meal symptoms: None. NM/NM hepatobiliary w phar* [id number] IMPRESSION: 1. No common bile duct obstruction. 2. Very minimal distention of the gallbladder. This is probably due to numerou s stones and sludge distending the gallbladder is seen on the recent ultrasound . Also the gallbladder is contracted. The ejection fraction is normal.
[2020-09-20 02:02] LABS: Alcohol Level < 10 mg/dL (0-10)
[2020-09-20] MEDS: dextrose 5%-lactated ringers 1,000 ML 75 ML IV (02:26)
[2020-09-20] MEDS: enoxaparin 40 mg/0.4 mL Syringe SUBCUT (02:27)
[2020-09-20 05:53] LABS: Basophils % 0.6 %; Eosinophils % 0.2 %; Hematocrit 34.9 % (42.0-52.0); Hemoglobin 11.7 g/dL (11.7-16.6); Lymphocytes # 0.4 10^3/uL (0.8-4.8); Mean Corpuscular HGB Conc 33.5 g/dL (30.0-36.0); Mean Corpuscular Hemoglobin 36.2 pg (28.0-34.0); Mean Platelet Volume 10.2 fL (7.4-10.4); Monocytes # 0.6 10^3/uL (0.2-0.9); Monocytes % 12.1 %; Neutrophils # 4.05 10^3/uL (1.8-7.7); Neutrophils % 78.7 %; Nucleated Red Blood Cells % 0 %; Platelet Count 145 10^3/cmm (130-400); Red Blood Count 3.23 10^6/uL (4.1-5.3); Red Cell Distribution Width 14.9 % (12.1-15.1); White Blood Count 5.1 10^3/uL (4.0-10.0)
[2020-09-20 06:14] LABS: Alanine Aminotransferase 15 U/L (0-41); Albumin Level 3.3 g/dL (3.5-5.2); Alkaline Phosphatase 68 IU/L (40-130); Anion Gap 16.8 (5-19); Aspartate Amino Transferase 29 U/L (0-40); Blood Urea Nitrogen 14 mg/dL (8-23); Calcium 7.7 mg/dL (8.5-10.5); Carbon Dioxide 21 mmol/L (22-29); Chloride 105 mmol/L (98-107); Creatinine Clr Calc Pharmacy 93.6224; Globulin 2.1 g/dL (1.3-4.6); Glomerular Filtration Rate 133.6 mL/min (90-130); Glucose 115 mg/dL (65-115); Magnesium 1.4 mg/dL (1.7-2.3); Osmolality Calculated 289 mOsm/kg (285-295); Potassium 3.8 mmol/L (3.5-5.1); Sodium 139 mmol/L (136-145); Total Protein 5.4 g/dL (6.6-8.7)
[2020-09-20 07:48] LABS: Amphetamines Screen Urine Negative (Negative); Barbiturates Screen Urine Negative (Negative); Benzodiazepines Screen Urine Negative (Negative); Cocaine Screen Urine Negative (Negative); Opiate Screen Urine Negative (Negative); PCP Screen Urine Negative (Negative); THC Screen Urine Negative (Negative)
[2020-09-20] MEDS: folic acid 1 mg Tablet PO (09:50)
[2020-09-20] MEDS: multivitamin therapeutic Tablet 1 TAB PO (09:50)
[2020-09-20] MEDS: thiamine 100 mg Tablet PO (09:51)
--- NOTE | 2020-09-20 10:12 | PC.CHAP ---
Pastoral Care Encounter/Spiritual Assessment Type of Contact [] Declined matcher visit [] Patient/Family/Request visit [] Outpatient visit [] Follow-up visit [] Physician referral [] Code/Alert [x] Routine visit [] Staff referral [] Actively dying [x] Patient sleeping [] Family support [] [] Out of room [] Palliative care [] [] Receiving care in room [] Pre-surgical visit [] Trauma [] Long length of stay [] ICU visit [] Other: Relational/Emotional Strength [] Patient feels connected with others/family/visitors/staff [] Distress [] Loneliness/isolation [] Abandonment Spirituality of Patient [] Person of Christelle [] Attends Protestant of their Christelle [] Believes in Prayer [] Reads Bible or Restorationism materials [] There are Spiritual issues to be addressed Power Builder Developer Interventions [] Prayer [] Active listening [] Non-anxious presence [] Spiritual/emotional support [] Crisis/trauma care [] Spiritual counseling [] Bereavement support [] Provided bereavement packet [] Provided Bible/devotional materials [] Provided toy/stuffed animal, coloring book to patient or family member [] Provided Communion [] Anointing/[place] [] Salvation [] Completed spiritual assessment [] Other: Impact on Illness or Injury [] Angry [] Fearful [] Anxious [] Often cries [] Exhaustion [] Unable to work [] Unable to attend religious [] Unable to walk/stand [] Unable to read [] Unable to drive [] Unable to eat/drink [] Unable to sleep [] Unable to be with family [] Patient intubated [] Other: Summary Time spent with patient
--- NOTE | 2020-09-20 10:48 | PC.NURSE ---
PT OFF FLOOR FOR [facility]
--- NOTE | 2020-09-20 13:37 | P.PN_ITS ---
Subjective Subjective: Interval history: Patient was stable at the time of my evaluation without any new complaints. Medications: Reviewed: Yes Vitals/I&O/Wt Last Vital Signs Temp 98.5 F 09/20/20 12:00 Pulse 71 09/20/20 12:00 Resp 18 09/20/20 12:00 BP 96/58 09/20/20 12:00 Pulse Ox 97 09/20/20 12:00 09/19/20 09/20/20 09/20/20 22:59 06:59 14:59 Intake Total 1999 Output Total 0 / 0 Balance 1999 Weight last 48 hrs Weight 73.482 kg Physical Exam Narrative: EXAM NARRATIVE: General : alert, awake oriented x3, NAD HEENT : Grossly unremarkable CVS: RRR Chest : CTABL ABD: Soft, nt,nd Ext No edema Data : 09/20/20 05:00 09/20/20 05:00 A&P Assessment and plan (1) Pancreatitis: CT abdomen reveals duodenitis, he has lipase [address] abdomen pelvis did not reveal pancreatic inflammation he does show signs of cholelithiasis, no signs of sepsis or cholangitis, requested on ultrasound to rule out choledocholithiasis - Pending HIDA scan - NPO - Repeat lipase in am - May consider surgery consult Status: Acute Qualifiers: Acute pancreatitis complication: unspecified Chronicity: acute Pancre atitis type: unspecified pancreatitis type Qualified Code(s): K85.90 - Acute pancreatitis without necrosis or infection, unspecified (2) Cholelithiasis: HIDA pending Status: Acute (3) Acute dehydration: Status: Acute (4) Alcoholism: CIWA Ativan per protocol Status: Acute Additional A&P Information DVT prophylaxis Lovenox Attestations Medical Necessity Statement*: require further hospitalization for management of acute pancreatitis Time Spent in Patient Care: Greater than 35 minutes (>than 50% of time spent in counselling and/or direct pt care on unit) . Coding Level of Care Code Acute Curriculum Designer for g Rashid Diagnoses Pancreatitis K85.90 Acute pancreatitis complication: unspecified Chronicity: acute Pancreatitis type: unspecified pancreatitis type Cholelithiasis K80.20 Acute dehydration E86.0 Alcoholism F10.20
--- NOTE | 2020-09-20 19:33 | PC.NURSE ---
PTS DRESSING CHANGED TODAY, TOLERATED WELL.
[2020-09-21] MEDS: enoxaparin 40 mg/0.4 mL Syringe SUBCUT (01:43)
[2020-09-21] MEDS: dextrose 5%-lactated ringers 1,000 ML 75 ML IV ×2 (01:43→14:25)
[2020-09-21 03:28] VITALS: BP 116/68; PULSE 56; RESP 18; TEMP 36.8; O2SAT 96
[2020-09-21 07:32] VITALS: BP 133/75; PULSE 59; RESP 18; TEMP 36.3; O2SAT 94
[2020-09-21] MEDS: multivitamin therapeutic Tablet 1 TAB PO (07:53)
[2020-09-21] MEDS: folic acid 1 mg Tablet PO (07:54)
[2020-09-21] MEDS: thiamine 100 mg Tablet PO (07:54)
--- NOTE | 2020-09-21 10:53 | PC.CHAP ---
Pastoral Care Encounter/Spiritual Assessment Type of Contact [] Declined government sales manager visit [] Patient/Family/Request visit [] Outpatient visit [] Follow-up visit [] Physician referral [] Code/Alert [x] Routine visit [] Staff referral [] Actively dying [] Patient sleeping [] Family support [] [] Out of room [] Palliative care [] [x] Receiving care in room [] Pre-surgical visit [] Trauma [] Long length of stay [] ICU visit [] Other: Relational/Emotional Strength [x] Patient feels connected with others/family/visitors/staff [] Distress [] Loneliness/isolation [] Abandonment Spirituality of Patient [x] Person of Christelle [] Attends Yazidism of their Christelle [x] Believes in Prayer [] Reads Bible or Christian materials [] There are Spiritual issues to be addressed Lifestyle Consultant Interventions [x] Prayer [x] Active listening [x] Non-anxious presence [x] Spiritual/emotional support [] Crisis/trauma care [x] Spiritual counseling [] Bereavement support [] Provided bereavement packet [] Provided Bible/devotional materials [] Provided toy/stuffed animal, coloring book to patient or family member [] Provided Communion [] Anointing/[place] [] Salvation [x] Completed spiritual assessment [] Other: Impact on Illness or Injury [] Angry [] Fearful [x] Anxious [] Often cries [] Exhaustion [] Unable to work [] Unable to attend mosque [] Unable to walk/stand [] Unable to read [] Unable to drive [] Unable to eat/drink [] Unable to sleep [] Unable to be with family [] Patient intubated [] Other: Summary waiting doctor, waitng on the three tests has negative feelings, hoping for the best results wants to home soon Time spent with patient 10 mins
[2020-09-21 11:41] LABS: Alanine Aminotransferase 11 U/L (0-41); Albumin Level 3.2 g/dL (3.5-5.2); Alkaline Phosphatase 69 IU/L (40-130); Anion Gap 11.2 (5-19); Aspartate Amino Transferase 22 U/L (0-40); Blood Urea Nitrogen 11 mg/dL (8-23); Calcium 8.2 mg/dL (8.5-10.5); Carbon Dioxide 26 mmol/L (22-29); Chloride 103 mmol/L (98-107); Creatinine Clr Calc Pharmacy 93.6224; Globulin 2.3 g/dL (1.3-4.6); Glomerular Filtration Rate 213.3 mL/min (90-130); Glucose 96 mg/dL (65-115); Lipase 119 U/L (13-60); Osmolality Calculated 283 mOsm/kg (285-295); Potassium 3.2 mmol/L (3.5-5.1); Sodium 137 mmol/L (136-145); Total Protein 5.5 g/dL (6.6-8.7)
[2020-09-21 11:48] VITALS: BP 125/73; PULSE 52; RESP 16; TEMP 36.8; O2SAT 97
--- NOTE | 2020-09-21 12:05 | PC.RESP ---
SMOKING CESSATION AND PULMONARY REHAB INFORMATION SENT TO PATIENT.
--- NOTE | 2020-09-21 13:55 | PM.PN ---
Subjective Subjective: Interval history: patient did not have any significant abdominal discomfort at the time of my evaluation. Denied any fever, chills, nausea vomiting. Medications: Reviewed: Yes Vitals/I&O/Wt Last Vital Signs Temp 98.3 F 09/21/20 11:48 Pulse 52 L 09/21/20 11:48 Resp 16 09/21/20 11:48 BP 125/73 09/21/20 11:48 Pulse Ox 97 09/21/20 11:48 09/20/20 09/21/20 09/21/20 22:59 06:59 14:59 Intake Total 1240 / 1240 360 / 360 Output Total 300 / 300 300 / 600 Balance 940 / 940 -300 / 640 360 / 360 Weight last 48 hrs Weight 73.482 kg Physical Exam Narrative: EXAM NARRATIVE: General : alert, awake oriented x3, NAD HEENT : Grossly unremarkable CVS: RRR Chest : CTABL ABD: Soft, nt,nd Ext No edema Data : 09/20/20 05:00 09/21/20 11:04 A&P Assessment and plan (1) Pancreatitis: CT abdomen reveals duodenitis, he has lipase [address] abdomen pelvis did not reveal pancreatic inflammation he does show signs of cholelithiasis, no signs of sepsis or cholangitis, requested on ultrasound to rule out choledocholithiasis Right upper quadrant ultrasound showed cholelithiasis HIDA scan noted Will advance to clear liquid diet General surgery consulted Repeat labs in a.m. Status: Acute Qualifiers: Acute pancreatitis complication: unspecified Chronicity: acute Pancreatitis type: unspecified pancreatitis type Qualified Code(s): K85.90 - Acute pancreatitis without necrosis or infection, unspecified (2) Cholelithiasis: General surgery consulted Status: Acute (3) Acute dehydration: Status: Acute (4) Alcoholism: CIWA Ativan per protocol Status: Acute Additional A&P Information DVT prophylaxis Lovenox Attestations Medical Necessity Statement*: will require further hospitalization for management of gallstone pancreatitis Time Spent in Patient Care: Greater than 35 minutes (>than 50% of time spent in counselling and/or direct pt care on unit). Coding Level of Care Code Acute Independent Crop Consultant for Katrin Mike Diagnoses Pancreatitis K85.90 Acute pancreatitis complication: unspecified Chronicity: acute Pancreatitis type: unspecified pancreatitis type Cholelithiasis K80.20 Acute dehydration E86.0 Alcoholism F10.20
[2020-09-21] MEDS: potassium chloride ER 20 mEq Tablet PO (14:24)
[2020-09-21 16:00] VITALS: BP 131/82; PULSE 56; RESP 18; TEMP 37.1; O2SAT 96
--- NOTE | 2020-09-21 18:54 | P.CONIM_ITS ---
Providers/Reason For Consult Consulting Physician/Specialty*: General Surgery Dr. Feliz Reason for Consult*: Gallstones Attending Physician: Gene Bolden Primary Care Provider: Medardo Marsh MD History of Present Illness History of Present Illness Gerardo Millan is a 70 year old male who present to to the hospital on 09/19/2020with complaints of abdominal pain, nausea and vomiting. Patient has been a lifelong drinker and usually drinks vodka every day. He states that he has not drank any alcohol for the last for 5 days. He denies any prior admissions with pancreatitis. On initial evaluation he was noted to have lipase of 2450. Patient is admitted to the hospital for bowel rest and conservative management. Today he denies significant abdominal pain nausea or vomiting and is tolerating a clear liquid diet. No fevers or chills Review of Systems General: Reports: 10 or more systems reviewed and unremarkable except in HPI and below Meds/Allergies Home Medications and Allergies Home Medications Medication Instructions Recorded Confirmed Last Taken Type acetaminophen [Tylenol Extra 500 mg PO Q6H PRN 06/04/19 09/20/20 Unknown History Strength] aspirin 325 mg PO DAILY 06/04/19 09/20/20 06/04/19 History lorazepam [Ativan] 0.5 - 1 mg PO TID PRN 06/04/19 09/20/20 Unknown History prochlorperazine maleate 10 mg PO Q6H PRN 06/04/19 09/20/20 Unknown History [Compazine] metoprolol succinate 25 mg PO BID 09/20/20 09/20/20 Unknown History Allergies Allergy/AdvReac Type Severity Reaction Status Date / Time corn Allergy ADR-Nausea Verified 09/19/20 21:36 pear Allergy ALGY-Rash Verified 09/19/20 21:36 Penicillins Allergy ALGY-Difficulty Verified 09/19/20 21:36 Breathing Current Medications Current Medications Generic Name Dose Route Start Last Admin Trade Name Freq PRN Reason Stop Dose Admin Folic Acid 1 mg 09/20/20 09:00 09/21/20 07:54 Folic Acid 1 Mg Tablet PO 1 mg DAILY AYE Administration Dextrose/Lactated Ringer's 1,000 mls @ 75 mls/hr 09/20/20 01:47 09/21/20 14:25 Dextrose 5%-Lactated Ringers IV 75 mls/hr .[id number] AYE Administration Multivitamins Therapeutic 1 tab 09/20/20 09:00 09/21/20 07:53 Multivitamin Therapeutic Tablet PO 1 tab DAILY AYE Administration Thiamine Mononitrate 100 mg 09/20/20 09:00 09/21/20 07:54 Thiamine 100 Mg Tablet PO 100 mg DAILY AYE Administration PFSH Acute PFSH: Medical History Anal cancer COPD (chronic obstructive pulmonary disease) CVA (cerebral vascular accident) DVT (deep venous thrombosis) Hypertension Status post chemoradiation Surgical History Status post colonoscopy Family History (Updated 09/20/20 @ 01:17 by Michael Osborn MD) Other Family history non-contributory Social History (Updated 09/20/20 @ 01:18 by Michael Osborn MD) Smoking and tobacco status: current every day smoker cigarettes Packs smoked per day: 0.5 Alcohol intake: current Alcohol intake frequency: 3 or more drinks per day Alcohol use comment: Vodka Substance/Drug Use: never Household members: family Housing: House History of recent travel: Yes Vitals/I&O/Wt Last Vital Signs Temp 98.7 F 09/21/20 16:00 Pulse 56 L 09/21/20 16:00 Resp 18 09/21/20 16:00 BP 131/82 09/21/20 16:00 Pulse Ox 96 09/21/20 16:00 09/21/20 09/21/20 09/21/20 06:59 14:59 22:59 Intake Total 1312.5 / 1912.5 600 / 1912.5 Output Total 300 / 600 Balance -300 / 640 1312.5 / 1912.5 600 / 1912.5 Weight last 48 hrs Weight 162 lb Physical Exam Narrative: EXAM NARRATIVE: HEENT: Normocephalic Eye: Sclera /conjunctiva normal Abdomen: Soft to palpation, no tender, nondistended Neurological: Oriented to place person and time Skin: Intact, no lesions appreciated on gross exam A&P Assessment and plan (1) Cholelithiasis: 70-year-old male diagnosed with pancreatitis who had ultrasound showing cholelithiasis with a contracted gallbladder. WBC is normal. HIDA scan showed gallstones with a contracted gallbladder. Status: Acute (2) Pancreatitis: 70-year-old male admitted with abdominal pain, nausea and vomiting with elevated lipase of 2400. Lipase is down to 119 today. Patient denies any abdom inal pain or GI symptoms and is tolerating a clear liquid diet. Patient also has a history of alcoholism which could also be responsible for the pancreatitis. 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
[2020-09-21 19:39] VITALS: BP 138/84; PULSE 63; RESP 18; TEMP 36.8; O2SAT 96
[2020-09-22] VITALS: BP 136/71; PULSE 56; RESP 18; TEMP 36.7; O2SAT 96
[2020-09-22] MEDS: dextrose 5%-lactated ringers 1,000 ML 75 ML IV (03:12)
[2020-09-22 03:52] VITALS: BP 125/81; PULSE 52; RESP 16; TEMP 36.6; O2SAT 95
--- NOTE | 2020-09-22 04:20 | PC.NURSE ---
SHIFT NOTE patient pleasant and cooperative this shift, in bed with eyes closed and resp even and unlabored, no s/s of distress, up to bathroom x1 this shift independently, reminded to call for assist for safety, patient verbalized planning on being discharged today. denied pain throughout the shift.
[2020-09-22 05:55] LABS: Basophils % 0.7 %; Eosinophils # 0.1 10^3/uL (0.0-0.8); Eosinophils % 1.5 %; Hematocrit 32.6 % (42.0-52.0); Hemoglobin 10.9 g/dL (11.7-16.6); Lymphocytes # 0.8 10^3/uL (0.8-4.8); Lymphocytes % 13.7 %; Mean Corpuscular HGB Conc 33.4 g/dL (30.0-36.0); Mean Corpuscular Hemoglobin 35.7 pg (28.0-34.0); Mean Corpuscular Volume 106.9 fL (80-94); Mean Platelet Volume 10.6 fL (7.4-10.4); Monocytes # 0.9 10^3/uL (0.2-0.9); Monocytes % 14.7 %; Neutrophils # 4.04 10^3/uL (1.8-7.7); Neutrophils % 68.9 %; Nucleated Red Blood Cells % 0 %; Platelet Count 137 10^3/cmm (130-400); Red Blood Count 3.05 10^6/uL (4.1-5.3); Red Cell Distribution Width 14.6 % (12.1-15.1); White Blood Count 5.9 10^3/uL (4.0-10.0)
[2020-09-22 06:15] LABS: Alanine Aminotransferase 13 U/L (0-41); Albumin Level 2.9 g/dL (3.5-5.2); Alkaline Phosphatase 80 IU/L (40-130); Anion Gap 11.4 (5-19); Aspartate Amino Transferase 28 U/L (0-40); Blood Urea Nitrogen 7 mg/dL (8-23); Calcium 8.2 mg/dL (8.5-10.5); Carbon Dioxide 26 mmol/L (22-29); Chloride 102 mmol/L (98-107); Creatinine Clr Calc Pharmacy 93.6224; Globulin 2.3 g/dL (1.3-4.6); Glomerular Filtration Rate 213.3 mL/min (90-130); Glucose 96 mg/dL (65-115); Lipase 153 U/L (13-60); Osmolality Calculated 280 mOsm/kg (285-295); Potassium 3.4 mmol/L (3.5-5.1); Sodium 136 mmol/L (136-145); Total Bilirubin 0.8 mg/dL (0.15-1.2); Total Protein 5.2 g/dL (6.6-8.7)
[2020-09-22 07:07] VITALS: BP 124/84; PULSE 53; RESP 14; TEMP 36.8; O2SAT 95
--- NOTE | 2020-09-22 07:10 | P.PN_ITS ---
Subjective Subjective: Interval history: Patient denies any abdominal pain, nausea or vomiting, tolerating clear liquid diet Vitals/I&O/Wt Last Vital Signs Temp 97.8 F 09/22/20 03:52 Pulse 52 L 09/22/20 03:52 Resp 16 09/22/20 03:52 BP 125/81 09/22/20 03:52 Pulse Ox 95 09/22/20 03:52 09/21/20 09/22/20 09/22/20 22:59 06:59 14:59 Intake Total 1060 / 3331.25 958.75 / 3331.25 Output Total 600 / 600 Balance 1060 / 2731.25 358.75 / 2731.25 Physical Exam Narrative: EXAM NARRATIVE: Abdomen: Soft, nontender, nondistended Data : 09/22/20 04:53 09/22/20 04:53 A&P Assessment and plan (1) Pancreatitis: Lipase is down to 153, patient does not have any abdominal symptoms. 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
[2020-09-22 11:52] VITALS: BP 129/71; PULSE 58; RESP 14; TEMP 36.8; O2SAT 94
--- NOTE | 2020-09-22 12:06 | PM.DCS ---
Discharge Providers Date of Admission: 09/20/20 00:08 Date of Discharge: September 22, 2020 Attending Provider at Admission: Michael Osborn MD Attending Provider at Discharge: Gene Bolden Primary Care Provider: Medardo Marsh MD Diagnoses at Discharge Discharge Diagnosis (1) Pancreatitis: Status: Acute Qualifiers: Acute pancreatitis complication: unspecified Chronicity: acute Pancreatitis type: unspecified pancreatitis type Qualified Code(s): K85.90 - Acute pancreatitis without necrosis or infection, unspecified Reason for Visit Reason for Visit: n/v Hospital Course Hospital Course 70 year old male who presented today with chief complaint of abdominal pain and recurrent nausea vomiting. Patient is stating that his symptoms started about 2 to 3 days ago. He drinks vodka on daily basis. Does smoke half a pack a day. Lives with his brother. Symptoms started with abdominal pain which gradually got worse, epigastric pain, associated with nausea and vomiting, has had 5-7 episodes without any hematemesis, chest pain, shortness of breath, fever or blood in stool. Diagnosis in the ER revealed normal CBC, BMP, he has chronic sinus bradycardia, lipase was noted to be elevated. Imaging studies included a CT abdomen pelvis with contrast which showed evidence of cholelithiasis with contracted gallbladder. Small amount of carla cholestatic fluid. Also question of mild reactive proximal duodenitis adjacent to the inflamed gallbladder. he was kept NPO. Started on IV fluids.Right upper quadrant ultrasound showed contracted gallbladder with moderate wall thickening which was most likely related to spread. Pancreatic inflammatory changes rather than acute cholecystitis. Fatty infiltration of the liver was also noted.HIDA scan was performed which showed minimal distention of the gallbladder with a normal ejection fraction and no evidence of common bile duct obstruction.Patients lipase Had decreased to 153. He was tolerate oral intake. Did not have any recurrence of nausea vomiting. Did not have any further abdominal discomfort. General surgery was consulted for evaluation of gallstone pancreatitis. Recommendations were to follow up on outpatient basis for evaluation of future cholecystectomy. of note due to stable BP with bradycardia metoprolol was not restarted at time of discharge. Physical Exam Narrative: EXAM NARRATIVE: General : alert, awake oriented x3, NAD HEENT : Grossly unremarkable except chronic left eye changes CVS: RRR Chest : CTABL ABD: Soft, nt,nd Negative Ochoa sign Ext No edema Discharge Data Data Completed and Pending: Completed Studies During Hospitalization Category Date Time Status CT abdomen pelvis w con* [id number] Urge nt Cat Scan 09/19/20 21:51 Completed NM hepatobiliary w phar* [id number] Rout ine Nuc Med 09/20/20 01:47 Completed US gall bladder 7 6705 Routine Ultrasound 09/20/20 00:21 Completed Labs from last 24 hours 09/22/20 09/22/20 04:53 04:53 WBC 5.9 RBC 3.05 L Hgb 10.9 L Hct 32.6 L MCV 106.9 H MCH 35.7 H MCHC 33.4 RDW 14.6 Plt Count 137 MPV 10.6 H Neut % (Auto) 68.9 Lymph % (Auto) 13.7 Duc[place]ne % (Auto) 14.7 Eos % (Auto) 1.5 Baso % (Auto) 0.7 Neut # (Auto) 4.04 Lymph # (Auto) 0.8 [place]ne # (Auto) 0.9 Eos # (Auto) 0.1 Baso # (Auto) 0.0 Nucleated RBC % (a uto) 0 Nucleated RBCs # 0.0 Sodium 136 Potassium 3.4 L Chloride 102 Carbon Dioxide 26 Anion Gap 11.4 BUN 7 L Creatinine 0.4 L GFR Calculation 213.3 H Glucose 96 Calculated Osmolal ity 280 L Calcium 8.2 L Total Bilirubin 0.8 AST 28 ALT 13 Alkaline Phosphata se 80 Total Protein 5.2 L Albumin 2.9 L Globulin 2.3 Lipase 153 H Vitals: Last Vital Signs Temp 98.2 F 09/22/20 11:52 Pulse 58 L 09/22/20 11:52 Resp 14 09/22/20 11:52 BP 129/71 09/22/20 11:52 Pulse Ox 94 09/22/20 11:52 Discharge Plan Discharge Patient Disposition: Home Condition: Stable Prescriptions: New folic acid 1 mg Tablet 1 mg PO DAILY Qty: 30 RF: 0 Vitamin B-1 (mononitrate) 100 mg Tablet 100 mg PO DAILY Qty: 14 RF: 0 Thera 400 mcg Tablet 1 tab PO DAILY Qty: 30 RF: 0 Continued prochlorperazine maleate [Compazine] 10 mg Tablet 10 mg PO Q6H PRN (Reason: Nausea) RF: 0 lorazepam [Ativan] 1 mg Tablet 0.5 - 1 mg PO TID PRN (Reason: Nausea) RF: 0 Discontinued metoprolol succinate 25 mg tablet extended release 24 hr 25 mg PO BID RF: 0 aspirin 325 mg Tablet 325 mg PO DAILY RF: 0 acetaminophen [Tylenol Extra Strength] 500 mg Tablet 500 mg PO Q6H PRN (Reason: Pain) RF: 0 Discharge Orders: Discharge Order (Routine); Ordered 09/22/20 Ordered By: Gene Bolden Referrals: Medardo Marsh MD [Primary Care Provider] - 09/29/20 9:00 am Margarito Feliz MD [Physician] - 09/29/20 10:20 am Discharge Diet: As Directed Discharge Activity: Increase activity as tolerated Patient Instructions: Alcoholism, Thiamine (Vitamin B-1) (By mouth), Folic Acid (By mouth), Pancreatitis (DC), Cholelithiasis (DC), Opioid Safety Discharge Attestations Time Spent in Discharge Care*: greater than 30 min Specific Discharge Activities: educating patient, discussing with pcp/other providers, discussing with family service caseworker/social workers/dc planners, documenting/other paperwork and evaluating patient/reviewing data Status at Discharge: Cognitive status at discharge: cognitively intact, Behavioral status at discharge: cooperative, Functional status at discharge: independent ambulation Overall status at discharge: patient is progressing back to baseline Quality Metrics Clinical Quality Measures During this hospital stay, did patient experience: None Coding Level of Care Code Acute Chg FW DC note Diagnoses Pancreatitis K85.90 Acute pancreatitis complication: unspecified Chronicity: acute Pancreatitis type: unspecified pancreatitis type
[2020-09-22] MEDS: multivitamin therapeutic Tablet 1 TAB PO (12:25)
[2020-09-22] MEDS: potassium chloride ER 20 mEq Tablet PO (12:25)
[2020-09-22] MEDS: thiamine 100 mg Tablet PO (12:25)
[2020-09-22] MEDS: folic acid 1 mg Tablet PO (12:26)
--- NOTE | 2020-09-22 13:00 | PC.SOCIAL ---
Medicaid ride set up wheelchair, no oxygen per nurse MELVIN Tang. Trip #[id number].
--- NOTE | 2020-09-22 13:21 | PC.NURSE ---
pt verbalized understanding of discharge instructions, home medications, and follow up appointments. case management contacted and has set up a ride for patient.
[2020-09-22 15:02] VITALS: BP 131/83; PULSE 63; RESP 16; TEMP 36.6; O2SAT 96
--- NOTE | 2020-09-22 17:20 | PC.NURSE ---
patient is pacing hallways waiting for ride and getting increasingly irritated. after multiple attempts at reaching his brother he tells me that he is going to come and pick him up. I tried to contact the patients brother to confirm, but got no answer. The patient is refusing to wait on the unit any longer and is demanding to wait for his brother downstairs. patient was wheeled downstairs and sitting outside waiting on ride.
[2020-09-22 17:26] VITALS: BP 131/83; PULSE 63; RESP 16; TEMP 36.6; O2SAT 96
== END 2020-09-22 17:27 | disposition home or self-care (01) | DRG 440 ==
LOC: ER 09-20 00:09 → MEDSURG 09-20 00:17
PROVIDERS: Admitting Provider Internal Medicine; Emergency Provider Emergency Medicine; PCP Family Medicine; Visit Provider Hospitalist
DX: K85.10 Biliary acute pancreatitis without necrosis or infection (principal); K80.20 Calculus of gallbladder without cholecystitis without obstruction; K29.80 Duodenitis without bleeding; E86.0 Dehydration; K76.0 Fatty (change of) liver, not elsewhere classified; R00.1 Bradycardia, unspecified; J44.9 Chronic obstructive pulmonary disease, unspecified; I10 Essential (primary) hypertension; F17.210 Nicotine dependence, cigarettes, uncomplicated; F10.20 Alcohol dependence, uncomplicated; Y90.0 Blood alcohol level of less than 20 mg/100 ml; Z86.73 Personal history of transient ischemic attack (TIA), and cerebral infarction without residual deficits; Z86.718 Personal history of other venous thrombosis and embolism; Z92.3 Personal history of irradiation; Z79.82 Long term (current) use of aspirin; Z72.89 Other problems related to lifestyle; Z85.048 Personal history of other malignant neoplasm of rectum, rectosigmoid junction, and anus
CPT/HCPCS: 36415; 74177; 76705; 78227; 80053; 80306; 80307; 83690; 83735; 85025; 96361; 96372; 96374; 99285; A9537; J1650; J2405; J3411; J7030; Q9967

== ENCOUNTER 2020-11-09 09:47 | Outpatient (CLI) | payer MEDICARE, MEDICAID, SELFPAY ==
--- NOTE | 2020-11-09 10:03 | CT_ITS ---
WS: [id number] LDCT LUNG CANCER SCREENING TECHNIQUE: Noncontrast CT of the chest with coronal and sagittal reformatted images. CLINICAL INFORMATION: NICOTINE DEPENDENCE, CIGARETTES COMPARISON: CTA June 04, 2019 DLP: 55.77 mGy.cm DIvol: 1.[address] scans at [facility] use at least one of these dose optimization techniques: automat ed exposure control; mA and/or kV adjustment per patient size (includes targeted exams where dose is matched to clinical indication); or iterative reconstruction. FINDINGS: Moderate chronic emphysematous changes. No acute pulmonary infiltrates. No focal pneumonia or pleural fluid. Subsegmental atelectasis in the lung bases medially with bronchiectasis. No mediastinal or hi lar lymphadenopathy. Moderate thoracic kyphosis. Hypertrophic changes thoracic spine. Chronic anterio r wedging in the lower thoracic spine. Chronic appearing compression deformities in the upper thoraci c spine. CT/CT lung screening [id number] IMPRESSION: LUNG-RADS: 2-Benign Appearance or Behavior FOLLOW UP: 12 Month: Continue annual screening with LDCT
== END 2020-11-09 09:48 | disposition home or self-care (01) ==
LOC: RAD 09:53
PROVIDERS: PCP Family Medicine; Visit Provider Family Medicine
DX: Z12.2 Encounter for screening for malignant neoplasm of respiratory organs (principal); F17.210 Nicotine dependence, cigarettes, uncomplicated; Z20.822 Contact with and (suspected) exposure to COVID-19
CPT/HCPCS: 71271; 87635

== ENCOUNTER 2020-11-13 09:29 | Day surgery (SDC) | payer MEDICARE, MEDICAID, SELFPAY ==
[2020-11-13] VITALS (8 sets, daily range): BP systolic 111–132; BP diastolic 66–92; PULSE 60–81; RESP 17–20; TEMP 36.1–36.6; O2SAT 93–100; BMI 20.9
--- NOTE | 2020-11-13 09:43 | P.HP_ITS ---
Same Day Surgery H&P Indication for Procedure/HPI DATE OF PROCEDURE: November 13, 2020 CHIEF COMPLAINT/INDICATIONFOR SURGICAL PROCEDURE: cholelithiasis PREOP DIAGNOSIS: Cholelithiasis PLANNED PROCEDRUE: Operation Date: 11/13/20 10:40 Proposed Procedures p Laparoscopic Cholecystectomy 41429 K80.20(Not Applicable) - Margarito Feliz MD Medications/Allergies* Home Medications Medication Instructions Recorded Confirmed Type lorazepam [Ativan] 0.5 - 1 mg PO TID PRN 06/04/19 09/29/20 History prochlorperazine maleate 10 mg PO Q6H PRN 06/04/19 09/29/20 History [Compazine] aspirin 81 mg tablet,delayed 162 mg PO DAILY tab 10/18/20 10/18/20 History release budesonide-formoterol HFA 160 2 puff INHALATION BID 10/18/20 10/18/20 History mcg-4.5 mcg/actuation aerosol inhaler metoprolol succinate 25 mg 12.5 mg PO BID 10/18/20 10/18/20 History tablet,extended release 24 hr nitroglycerin 0.4 mg sublingual 0.4 mg SUBLINGUAL Q5M PRN 10/18/20 10/18/20 History tablet polyethylene glycol 3350 17 17 g PO DAILY 10/18/20 10/18/20 History gram/dose oral powder Allergies/Adverse Reactions Allergy/AdvReac Type Severity Reaction Status Date / Time corn Allergy ADR-Nausea Verified 11/13/20 09:43 [place] Allergy Uknown Verified 11/13/20 09:43 pear Allergy ALGY-Rash Verified 11/13/20 09:43 Penicillins Allergy ALGY-Difficulty Verified 11/13/20 09:43 Breathing Pertinent History/Comorbid Conditions* Medical History (Updated 09/20/20 @ 13:41 by Gene Bolden MD) Anal cancer COPD (chronic obstructive pulmonary disease) CVA (cerebral vascular accident) DVT (deep venous thrombosis) Hypertension Status post chemoradiation Surgical History (Updated 09/30/20 @ 14:36 by Margarito Feliz MD) History of ankle surgery History of tonsillectomy Status post colonoscopy Family History (Updated 09/20/20 @ 01:17 by Michael Osborn MD) Family history non-contributory Social History Smoking and tobacco status: current some day smoker cigarettes Packs smoked per day: 0.5 Alcohol intake: current Alcohol intake frequency: 3 or more drinks per day Household members: family Housing: House History of recent travel: Yes Pertinent Exam Findings alert, oriented x 3 and regular rate & rhythm Recommendations Surgery/Procedure today Coding Level of Care Code 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
[2020-11-13] MEDS: sodium chloride 0.9% 1,000 ML 30 ML IV (10:04)
--- NOTE | 2020-11-13 10:20 | P.ANESASSM_ITS ---
Pre-Anesthetic Assessment Pre-Anesthetic Assessment: Height/Weight: Height 1.83 m Weight 69.853 kg Temp Pulse Resp BP Pulse Ox 97.8 F 81 18 132/92 98 11/13/20 09:50 11/13/20 09:50 11/13/20 09:50 11/13/20 09:50 11/13/20 09:50 Preop Diagnosis: Cholelithiasis Proposed Procedure: Operation Date: 11/13/20 11:15 Proposed Procedures p Laparoscopic Cholecystectomy 88469 K80.20(Not Applicable) - Margarito Feliz MD Familial anesthetic complications: Occassional PONV Was Beta Michaela taken within 24 hours: N/A Was Clonidine taken within 24 hours: N/A Last intake: Intake Last Liquid Date 11/12/20 Last Liquid Time 19:00 Last Solid Date 11/12/20 Last Solid Time 19:00 Social: Social History: Tobacco and No alcohol Exam: Pre-Anes Outpt Exam: alert, oriented x 3 and regular rate & rhythm Additional Exam Findings (including area of procedure): decreased on L lung fiel ds Airway: Cervical ROM: WNL MP: 2 Dentition: Other (missing, poor dentition) Pulmonary: Pulmonary: COPD (emphysema) Comments: 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 No history of intubations for lungs, but has had to be on oxygen for a few days before in the hospital. patient states lung status is good right now, but does have allergies during this time of year, which can exacerbate things. Patient informed of increased risk of respiratory deterioration with intubation and elective surgery. States he would like to proceed CV/HEM: CV/HEM: [place] (1998) Hepatic: Comments: pancreatitis, hx alcoholism Neuropsych: Neuropsych: CVA ( years ago ) Anesthetic Plan: ASA status: 3 Anesthesia: General Risk of > 500 ml blood loss (7ml/kg in children): No Meds/Allergies Current Medications: Current Medications Generic Name Dose Route Start Last Admin Trade Name Freq PRN Reason Stop Dose Admin Sodium Chloride 1,000 mls @ 30 ml s/hr 11/13/20 09:30 11/13/20 10:04 Sodium Chloride 0.9% IV 11/14/20 09:29 30 mls/hr .Q24H AYE Administration PFSH Anesthesia PFSH: Medical History (Updated 10/18/20 @ 09:36 by Ramya Abebe RN) Anal cancer COPD (chronic obstructive pulmonary disease) CVA (cerebral vascular accident) DVT (deep venous thrombosis) Hypertension Status post chemoradiation Surgical History (Updated 10/18/20 @ 09:34 by Ramya Abebe RN) History of ankle surgery History of tonsillectomy Status post colonoscopy Family History Other Family history non-contributory Social History Smoking and tobacco status: current some day smoker cigarettes Packs smoked per day: 0.5 Alcohol intake: current Alcohol intake frequency: 3 or more drinks per day Household members: family Housing: House History of recent travel: Yes Data Anesthesia Cardiac Studies: No Data to Display
--- NOTE | 2020-11-13 10:21 | ECG_ITS ---
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 Measurements Intervals [place] Rate: 62 P: 31 NM: 131 QRS: -17 QRSD: 89 T: 7 QT: 454 QTc: 464 Interpretive Statements SINUS RHYTHM LOW QRS VOLTAGE IN PRECORDIAL LEADS [QRS DEFLECTION < 1.0 mV IN CHEST LEADS] MODERATE VOLTAGE CRITERIA FOR LVH, CONSIDER NORMAL VARIANT [MEETS CRITERIA IN ONE OF: R(aVL), S(V1), R(V5), R(V5/V6)+S(V1)] POSSIBLE ANTERIOR MYOCARDIAL INFARCTION , PROBABLY OLD [30 ms Q WAVE IN V3/V4, OR R < 0.2 mV IN V4] Compared to ECG 06/04/2019 11:15:49 Low QRS voltage now present Myocardial infarct finding now present Junctional rhythm no longer present Electronically Signed On 11-14-2020 0:08:17 CDT by Ashwin Marie M.D. [email or web address]
[2020-11-13] MEDS: levofloxacin-dextrose 5 % 500 MG/100 ML PREMIX 100 MG IV (11:55)
--- NOTE | 2020-11-13 13:04 | PM.OP ---
Operative Report Date of procedure: November 13, 2020 Pre-op Diagnosis: 1. Cholelithiasis 2. History of pancreatitis Post-op diagnosis: same Procedure Done: Laparoscopic cholecystectomy Specimens removed/disposition: Gallbladder Surgeon: Margarito Feliz Anesthesia: General Condition: stable Disposition: PACU Procedure: The patient was taken to the operating room and was intubated under general anesthesia. After the antibiotic had been administered, the abdomen was prepped and draped in a sterile manner. Using a #15 blade, a 1 centimeter infraumbilical curvilinear incision was made and using an open Jaime technique the peritoneal cavity was entered. A 10 millimeter port was placed and 15 millimeters of pneumoperitoneum was created. A 10 millimeter, 30 degrees scope was then introduced. Three 5 millimeter ports were placed in the epigastric, midclavicular and the anterior axillary line two fingerbreadths below the costal margin on the right side under the direct visualization. Ratcheted forceps were introduced into the lateral most port and was used to retract the fundus of the gallbladder cephalad and using forceps the infundibulum of the gallbladder was retracted laterally. Using L-hook cautery the peritoneum overlying the Calot's triangle was opened medially and laterally until the cystic duct and the cystic artery were skeletonized. Dissection was carried along the body of the gallbladder and after ensuring critical view of safety, 4 clips applied on the cystic duct and 3 clips applied on the cystic artery and cut leaving, 3 clips on the remaining portion of the duct and 2 clips on the remaining portion of the artery. The rest of the gallbladder was dissected off the liver using L-hook cautery. There was no bleeding or bile leaking noted from the gallbladder fossa and the clips appeared to be in place. An EndoCatch bag was introduced to remove the gallbladder. All the ports were removed under direct visualization and there was no bleeding noted from the port sites. The fascia of the umbilicus was closed using [id number] 0 Vicryl sutures and the subcutaneous tissue was approximated using 3-0 Vicryl sutures. The skin at all four ports were closed using 4-0 Monocryl and Dermabond. A total of 10 millimeters of 0.5% Marcaine was infiltrated around the port sites. The patient was stable throughout the procedure.
[2020-11-13] MEDS: HYDROcodone-acetaminophen 5-325 mg Tablet 1 TAB PO (13:26)
--- NOTE | 2020-11-13 15:14 | ANE.PACU2 ---
Inpatient post-anesthesia follow up: Airway intact: Yes Vital signs: Temperature 97 F Pulse Rate 60 Respiratory Rate 18 Blood Pressure 124/66 Pulse Oximetry 94 Oxygen Delivery Me thod Room Air Oxygen Flow Rate 8 Fraction of Inspir ed Oxygen Hydration adequate: Yes Nausea and vomiting: No Pain level: 2 Mental status: Baseline
== END 2020-11-13 14:06 | disposition home or self-care (01) ==
PROVIDERS: PCP Family Medicine; Visit Provider Surgery
PROC: 0FT44ZZ Resection of Gallbladder, Percutaneous Endoscopic Approach (ICD-10-PCS; CPT 47562; principal; 2020-11-13 11:15)
DX: K80.10 Calculus of gallbladder with chronic cholecystitis without obstruction (principal); Z85.048 Personal history of other malignant neoplasm of rectum, rectosigmoid junction, and anus; J44.9 Chronic obstructive pulmonary disease, unspecified; Z86.73 Personal history of transient ischemic attack (TIA), and cerebral infarction without residual deficits; Z86.718 Personal history of other venous thrombosis and embolism; I10 Essential (primary) hypertension
CPT/HCPCS: 47562; 88304; 93005; J1100; J1956; J2250; J2405; J2704; J2710; J3010; J3490; J7030

== ENCOUNTER 2021-02-05 01:44 | Inpatient (IN) | payer MEDICARE, MEDICAID, SELFPAY ==
[2021-02-05] VITALS (12 sets, daily range): BP systolic 98–148; BP diastolic 69–106; PULSE 73–149; RESP 16–23; TEMP 36.6–37.8; O2SAT 88–97; BMI 19.6
--- NOTE | 2021-02-05 | MR_ITS ---
WS: [id number] MRI BRAIN WITHOUT CONTRAST HISTORY: ?STROKE COMPARISON: None available. TECHNIQUE: Diffusion imaging, multiplanar T1, T2 and FLAIR imaging obtained. No evidence for acute infarct or hemorrhage. Ricks-white matter differentiation is normal. Mild symmetric atrophy and moderate chronic microvascular ischemic type changes in the subcortical an d periventricular white matter. Additional increased T2 signal in the emmett. Ventricles and extra-axial spaces are normal. No inferior displacement of cerebellar tonsils. The sella turcica and pituitary gland are unremarkabl e. 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 Paranasal sinuses: Mucoperiosteal thickening in the LEFT maxillary sinus. No air-fluid levels. Mastoid air cells: Bilateral mastoid air cell effusions. Calvarium and scalp: Intact. MR/MR head wo con* [id number] IMPRESSION: 1. No acute infarct or hemorrhage. 2. Mild atrophy with moderate chronic microvascular ischemic type changes in t he supratentorial white matter and in the emmett. 3. Bilateral mastoid air cell effusions.
[2021-02-05] MEDS: dextrose 50% syringe 50 mL (01:58)
--- NOTE | 2021-02-05 01:58 | XRR_ITS ---
PROCEDURE INFORMATION: Exam: XR Chest Exam date and time: 02/05/2021 1:58 AM Age: 70 years old Clinical indication: Other: Weakness TECHNIQUE: Imaging protocol: XR of the chest. Views: 1 view. COMPARISON: CR XR chest 1V portable [id number] 06/04/2019 10:30 AM FINDINGS: Lungs: Left basilar opacity is noted which may be pneumonia. The lungs are otherwise clear. Pleural spaces: Unremarkable. No pleural effusion. No pneumothorax. Heart/Mediastinum: Unremarkable. No cardiomegaly. Bones/joints: Right clavicle, proximal right humerus, and multiple bilateral rib chronic fractures are again noted. No acute fracture is detected. XR/XR chest 1V portable [id number] IMPRESSION: Possible left basilar pneumonia. Radiation Dose CTDIVOL = (mGy): DLP = (mGy-cm)
--- NOTE | 2021-02-05 01:58 | CTR_ITS ---
PROCEDURE INFORMATION: Exam: CT Head Without Contrast Exam date and time: 02/05/2021 1:58 AM Age: 70 years old Clinical indication: Weakness, extremity; Left; Additional info: Symptoms of acute stroke TECHNIQUE: Imaging protocol: Computed tomography of the head without contrast. Radiation optimization: All CT scans at this facility use at least one of these dose optimization techniques: automated exposure control; mA and/or kV adjustment per patient size (includes targeted exams where dose is matched to clinical indication); or iterative reconstruction. COMPARISON: CT head wo con* [id number] 06/04/2019 6:48 PM RADIATION DOSE METRICS: Total DLP (mGy-cm): 952.84 FINDINGS: Brain: No acute intracranial hemorrhage or mass effect. There is mild decreased attenuation in the periventricular white matter, likely from microvascular disease. No definite acute infarct by CT. MRI could be more sensitive/specific for detection, as clinically directed. Cerebral ventricles: Ventricle size is normal for age. Paranasal sinuses: Moderate mucosal thickening in the left maxillary sinus. Included paranasal sinuses otherwise appear essentially clear. 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 Small amount of fluid in remaining mastoid air cells on the right, acute infection not excluded. Orbital cavity: Chronic findings of increased attenuation and some calcification again seen in the globe of the left orbit, not significantly changed. Bones/joints: No definite acute skull fracture. CT/CT head wo con* [id number] IMPRESSION: 1. No acute intracranial hemorrhage or mass effect. 2. Changes of microvascular disease. 3. No definite acute infarct by CT, see above. 4. Paranasal and mastoid sinus findings as discussed above. 5. Other findings discussed above. Radiation Dose CTDIVOL = (mGy): DLP = 952.84 (mGy-cm)
[2021-02-05 02:03] LABS: Glucose Point of Care 36 mg/dL (70-110)
[2021-02-05 02:14] LABS: Basophils # 0.1 10^3/uL (0.0-0.1); Basophils % 0.4 %; Hematocrit 50.5 % (42.0-52.0); Hemoglobin 15.4 g/dL (11.7-16.6); Lymphocytes # 0.3 10^3/uL (0.8-4.8); Lymphocytes % 2.7 %; Mean Corpuscular HGB Conc 30.5 g/dL (30.0-36.0); Mean Corpuscular Hemoglobin 34.9 pg (28.0-34.0); Mean Corpuscular Volume 114.5 fl (80-94); Mean Platelet Volume 11.6 fL (7.4-10.4); Monocytes # 0.6 10^3/uL (0.2-0.9); Neutrophils # 11.11 10^3/uL (1.8-7.7); Neutrophils % 91.7 %; Nucleated Red Blood Cells % 0 %; Platelet Count 149 10^3/cmm (130-400); Red Blood Count 4.41 10^6/uL (4.1-5.3); Red Cell Distribution Width 17.2 % (12.1-15.1); White Blood Count 12.1 10^3/uL (4.0-10.0)
[2021-02-05 02:29] LABS: Glucose Point of Care 178 mg/dL (70-110)
[2021-02-05 02:37] LABS: Troponin(5th) Baseline 17 ng/L (0-15)
[2021-02-05 02:55] LABS: Glucose Point of Care 147 mg/dL (70-110)
[2021-02-05 02:59] LABS: INR 1.08 (0.8-1.2); Partial Thromboplastin Time 25.8 SECONDS (23.9-36.7)
[2021-02-05 03:00] LABS: Slide Review Slide Review Perform
[2021-02-05] MEDS: levofloxacin-dextrose 5 % 750 MG/150 ML PREMIX 100 MG IV (03:10)
[2021-02-05 03:19] LABS: Alanine Aminotransferase 47 U/L (0-41); Albumin Level 3.9 g/dL (3.5-5.2); Alcohol Level 13 mg/dL (0-10); Alkaline Phosphatase 119 IU/L (40-130); Anion Gap 41.3 (5-19); Aspartate Amino Transferase 161 U/L (0-40); Blood Urea Nitrogen 13 mg/dL (8-23); Calcium 8.7 mg/dL (8.5-10.5); Chloride 100 mmol/L (98-107); Glomerular Filtration Rate 133.6 mL/min (90-130); Glucose 172 mg/dL (65-115); NT Pro B Type Natriuretic Pept 360 pg/mL (0-125); Osmolality Calculated 302 mOsm/kg (285-295); Potassium 4.3 mmol/L (3.5-5.1); Sodium 144 mmol/L (136-145); Total Bilirubin 0.8 mg/dL (0.15-1.2); Total Protein 6.9 g/dL (6.6-8.7)
[2021-02-05 03:20] LABS: Carbon Dioxide 7 mmol/L (22-29); Creatinine Clr Calc Pharmacy 89.8204; D Dimer 3.19 ug/mIFEU (0-0.59)
--- NOTE | 2021-02-05 03:28 | W.ED.NEUROSD ---
HPI - Neuro Symptoms/Deficit General: Chief Complaint: Neuro Symptoms/Deficit Stated Complaint: POSSIBLE STROKE Time Seen by Provider: 02/05/21 01:48 History of Present Illness: HPI Narrative: 70-year-old male presenting with I think I had another stroke . He states that he was tired, and went to bed around 1 PM yesterday. He woke up at 7 PM, and had left-sided weakness. It persisted through the evening. He presents by ambulance for this. He notes that it is improved to some degree. In route, EMS obtained a blood sugar in the 50s. It is 36 on his arrival here. He is awake, and talking. He is moving all extremities. He does note that he is an alcohol drinker, and has not had a drink in a couple of days. Onset (ago): hour(s) Last Observed Normal: 13:00 Location: left arm and left leg History of same: No Severity: moderate Quality: weak, numb and tingling Relieving factors: none Exacerbating factors: none Context: gradual onset Associated symptoms: Reports cough, anorexia, nausea, short of breath and weakness; Deny chest pain, diaphoresis, fevers/chills or headache(s) Treatments Prior to Arrival: none Review of Systems Const: Denies: diaphoresis Card: Denies: chest pain GI: Reports: nausea Neuro: Denies: headache(s) [facility] ED PFSH: Medical History Anal cancer Anxiety COPD (chronic obstructive pulmonary disease) CVA (cerebral vascular accident) Depression DVT (deep venous thrombosis) Hypertension Myocardial infarction Status post chemoradiation Surgical History History of ankle surgery History of tonsillectomy Hx of cataract extraction Hx of non-cataract eye surgery Status post colonoscopy Status post laparoscopic cholecystectomy (11/13/20) Family History Other Family history non-contributory Social History Alcohol intake: current Alcohol intake frequency: 3 or more drinks per day Household members: family Housing: House History of recent travel: Yes NIH stroke score NIHSS: Level Of Consciousness - 1a: 0 Level Of Consciousness Questions - 1b: Both Correct Level Of Consciousness Commands - 1c: Both Correct Best Gaze - 2: Normal Visual Beckman - 3: No Visual Loss (blind chronically left eye) Facial Palsy - 4: Normal Motor Arm Right - 5: No Drift Motor Arm Left - 5: No Drift Motor Leg Right - 6: No Drift Motor Leg Left - 6: No Drift Limb Ataxia - 7: Absent Sensory - 8: Normal Best Language - 9: No Aphasia Dysarthia - 10: Normal Extinction And Inattention - 11: 0 Score: Total Score: 0 Physical Exam Const: COMMON NORMALS: no acute distress, patient oriented x3 and alert GENERAL APPEARANCE: cooperative, disheveled and frail appearing HENMT: COMMON NORMALS: normocephalic HEAD & SCALP: normocephalic Eye: COMMON NORMALS: EOMs intact bilaterally OTHER: left eye opaque. chronically blind Chest: COMMONS NORMALS: normal inspection of the chest Resp: COMMON NORMALS: clear to auscultation bilaterally EFFORT & INSPECTION: Yes tachypneic and Yes labored (mild) AUSCULTATION: clear to auscultation bilaterally and diminished lung sounds Cardio: COMMON NORMALS: regular rate RATE: regular rate RHYTHM: abnormal rhythm irregularly irregular GI: COMMON NORMALS: Normal to inspection, nondistended, normoactive bowel sounds present and Soft to palpation PALPATION: Yes Soft to palpation Neuro: COMMON NORMALS: patient oriented x3 SENSORIUM/ORIENTATION: Yes alert COORDINATION/BALANCE: [id number] test normal SPEECH: speech normal SENSORY EXAM: Yes extremities (intact) MOTOR EXAM: Pronator motor function not present COORDINATION: [id number] test normal Course Consultations: Consultation #1: patrica Vital Signs: Vital signs: Vital Signs Temperature 97.8 F 02/05/21 01:46 Pulse Rate 117 H 02/05/21 02:16 Respiratory Rate 16 02/05/21 02:16 Blood Pressure 103/71 02/05/21 03:29 Pulse Oximetry 97 02/05/21 02:16 MDM - Neuro Symptoms/Deficit MDM Narrative: Medical decision making narrative: 70-year-old male complained originally of left-sided weakness. His symptoms are resolved. His blood sugar was found to be 36 on arrival. He was given an amp of 50% dextrose, with improvement in those symptoms. He is also significantly hypoxic requiring oxygen. He is tachycardic and irregular. He states that he does not have a previous history of atrial fibrillation. Chest x-ray shows a left-sided pneumonia. His white blood cell count is 12. His bicarbonate level is 7 which is concerning. ABG is pending currently satting 92% on 3 L. He will be bolused 2 L that is his septic bolus. IV Levaquin as he has a penicillin allergy. Lactic acid level came back critical at 14. Because of his low bicarbonate level. ABG is pending. Given the fact that this patient had low blood sugar, high lactic acid, some weakness and confusion, and is tachycardic, possibility/probability exists that this could have been an alcoholic withdrawal seizure while he was sleeping. CIWA protocol will be ordered for the patient on admission. Hospitalist is aware. Lab Data: Labs: Lab Results 02/05/21 02/05/21 02/05/21 01:54 01:55 01:55 WBC 12.1 10^3/uL H 10 ^3/uL (4.0-10.0) RBC 4.41 10^6/uL 10^6 /uL (4.1-5.3) Hgb 15.4 g/dL g/dL (11.7-16.6) Hct 50.5 % % (42.0-52.0) MCV 114.5 fl H fl (80-94) MCH 34.9 pg H pg (28.0-34.0) MCHC 30.5 g/dL g/dL (30.0-36.0) RDW 17.2 % H % (12.1-15.1) Plt Count 149 10^3/cmm 10^3 /cmm (130-400) MPV 11.6 fL H fL (7.4-10.4) Neut % (Auto) 91.7 % % Lymph % (Auto) 2.7 % % [place] % (Auto) 5.0 % % Eos % (Auto) 0.0 % % Baso % (Auto) 0.4 % % Neut # (Auto) 11.11 10^3/uL H 1 0^3/uL (1.8-7.7) Lymph # (Auto) 0.3 10^3/uL L 10^ 3/uL (0.8-4.8) [place] # (Auto) 0.6 10^3/uL 10^3/ uL (0.2-0.9) Eos # (Auto) 0.0 10^3/uL 10^3/ uL (0.0-0.8) Baso # (Auto) 0.1 10^3/uL 10^3/ uL (0.0-0.1) Nucleated RBC % (a uto) 0 % % Nucleated RBCs # 0.0 /100WBC /100W BC PT INR APTT D-Dimer Specimen Type Sample Site ABG pH ABG pCO2 ABG pO2 ABG HCO3 ABG Base Excess Phil Test Hematocrit O2 Delivery Device FiO2 Aircraft Time Clerk ID Sodium Potassium Chloride Carbon Dioxide Anion Gap BUN Creatinine GFR Calculation Glucose POC Glucose 36 mg/dL L* mg/dL (70-110) Calculated Osmolal ity Lactate Calcium Total Bilirubin AST ALT Alkaline Phosphata se Troponin T Baselin e 17 ng/L H ng/L (0-15) NT-Pro-B Natriuret Pep Total Protein Albumin Globulin Urine Color Urine Appearance Urine pH Ur Specific Gravit y Urine Protein Urine Glucose (UA) Urine Ketones Urine Blood Urine Nitrate Urine Bilirubin Urine Urobilinogen Ur Leukocyte Sandhya ase Ethyl Alcohol SARS-CoV-2 Ag (Rap id) 02/05/21 02/05/21 02/05/21 02:15 02:20 02:20 WBC RBC Hgb Hct MCV MCH MCHC RDW Plt Count MPV Neut % (Auto) Lymph % (Auto) [place] % (Auto) Eos % (Auto) Baso % (Auto) Neut # (Auto) Lymph # (Auto) [place] # (Auto) Eos # (Auto) Baso # (Auto) Nucleated RBC % (a uto) Nucleated RBCs # PT 14.30 SECONDS SEC ONDS (12.1-14.9) INR 1.08 (0.8-1.2) APTT 25.8 SECONDS SECO NDS (23.9-36.7) D-Dimer Specimen Type Sample Site ABG pH ABG pCO2 ABG pO2 ABG HCO3 ABG Base Excess Phil Test Hematocrit O2 Delivery Device FiO2 Aircraft Time Clerk ID Sodium 144 mmol/L mmol/L (136-145) Potassium 4.3 mmol/L mmol/L (3.5-5.1) Chloride 100 mmol/L mmol/L (98-107) Carbon Dioxide 7 mmol/L L* mmol/ L (22-29) Anion Gap 41.3 H (5-19) BUN 13 mg/dL mg/dL (8-23) Creatinine 0.6 mg/dL L mg/dL (0.7-1.2) GFR Calculation 133.6 mL/min H mL /min (90-130) Glucose 172 mg/dL H mg/dL (65-115) POC Glucose 178 mg/dL H mg/dL (70-110) Calculated Osmolal ity 302 mOsm/kg H mOs m/kg (285-295) Lactate Calcium 8.7 mg/dL mg/dL (8.5-10.5) Total Bilirubin 0.8 mg/dL mg/dL (0.15-1.2) AST 161 U/L H U/L (0-40) ALT 47 U/L H U/L (0-41) Alkaline Phosphata se 119 IU/L IU/L (40-130) Troponin T Baselin e NT-Pro-B Natriuret Pep 360 pg/mL H pg/mL (0-125) Total Protein 6.9 g/dL g/dL (6.6-8.7) Albumin 3.9 g/dL g/dL (3.5-5.2) Globulin 3.0 g/dL g/dL (1.3-4.6) Urine Color Urine Appearance Urine pH Ur Specific Gravit y Urine Protein Urine Glucose (UA) Urine Ketones Urine Blood Urine Nitrate Urine Bilirubin Urine Urobilinogen Ur Leukocyte Sandhya ase Ethyl Alcohol 13 mg/dL H mg/dL (0-10) SARS-CoV-2 Ag (Rap id) 02/05/21 02/05/21 02/05/21 02:20 02:53 03:07 WBC RBC Hgb Hct MCV MCH MCHC RDW Plt Count MPV Neut % (Auto) Lymph % (Auto) [place] % (Auto) Eos % (Auto) Baso % (Auto) Neut # (Auto) Lymph # (Auto) [place] # (Auto) Eos # (Auto) Baso # (Auto) Nucleated RBC % (a uto) Nucleated RBCs # PT INR APTT D-Dimer 3.19 ug/mIFEU H u g/mIFEU (0-0.59) Specimen Type Sample Site ABG pH ABG pCO2 ABG pO2 ABG HCO3 ABG Base Excess Phil Test Hematocrit O2 Delivery Device FiO2 Aircraft Time Clerk ID Sodium Potassium Chloride Carbon Dioxide Anion Gap BUN Creatinine GFR Calculation Glucose POC Glucose 147 mg/dL H mg/dL (70-110) Calculated Osmolal ity Lactate Calcium Total Bilirubin AST ALT Alkaline Phosphata se Troponin T Baselin e NT-Pro-B Natriuret Pep Total Protein Albumin Globulin Urine Color Urine Appearance Urine pH Ur Specific Gravit y Urine Protein Urine Glucose (UA) Urine Ketones Urine Blood Urine Nitrate Urine Bilirubin Urine Urobilinogen Ur Leukocyte Sandhya ase Ethyl Alcohol SARS-CoV-2 Ag (Rap id) Negative (Negative) 02/05/21 02/05/21 02/05/21 03:07 03:15 03:38 WBC RBC Hgb Hct MCV MCH MCHC RDW Plt Count MPV Neut % (Auto) Lymph % (Auto) [place] % (Auto) Eos % (Auto) Baso % (Auto) Neut # (Auto) Lymph # (Auto) [place] # (Auto) Eos # (Auto) Baso # (Auto) Nucleated RBC % (a uto) Nucleated RBCs # PT INR APTT D-Dimer Specimen Type Arterial Sample Site Radial, right ABG pH 7.11 L* (7.35-7.45) ABG pCO2 23.0 mmHg L mmHg (35-45) ABG pO2 83.5 mmHg mmHg (80.0-100.0) ABG HCO3 7.4 mmol/L L mmol /L (22-26) ABG Base Excess -20.4 mmol/L L mm ol/L (-2.0-2.0) Phil Test Pos Hematocrit 42.7 % % (42-52) O2 Delivery Device Room air FiO2 21.0 % % Aircraft Time Clerk ID [id number] Sodium Potassium Chloride Carbon Dioxide Anion Gap BUN Creatinine GFR Calculation Glucose POC Glucose Calculated Osmolal ity Lactate 13.1 mmol/L H* mm ol/L (0.5-2.2) Calcium Total Bilirubin AST ALT Alkaline Phosphata se Troponin T Baselin e NT-Pro-B Natriuret Pep Total Protein Albumin Globulin Urine Color Yellow (Yellow) Urine Appearance Clear (CLEAR) Urine pH 5 (5-7) Ur Specific Gravit y 1.030 (1.005-1.030) Urine Protein Neg (Negative) Urine Glucose (UA) 1+ H (Normal) Urine Ketones 2+ H (Negative) Urine Blood Neg (Negative) Urine Nitrate Negative (Negative) Urine Bilirubin Neg (Negative) Urine Urobilinogen Norm mg/dL mg/dL (Negative) Ur Leukocyte Sandhya ase Negative (Negative) Ethyl Alcohol SARS-CoV-2 Ag (Rap id) Discharge Plan Discharge Patient Disposition: Admitted As Inpatient Clinical Impression: Pneumonia, Acidosis, lactic, Respiratory failure Condition: Fair Coding Level of Care Code ED Casting Sorter for Chg Fwd Exam Comprehensive
[2021-02-05 03:42] LABS: Lactate (Lactic Acid level) 13.1 mmol/L (0.5-2.2)
[2021-02-05 03:45] LABS: Add Urine Microscopic? NO; Charge for UA Resulting for Rev
[2021-02-05] MEDS: ondansetron 2 mg/ML SDV 2 mL 4 MG IVP (03:45)
[2021-02-05] MEDS: sodium chloride 0.9% 1,000 ML 999 ML IV ×2 (03:46→13:48)
[2021-02-05 03:56] LABS: Bilirubin Urine Neg (Negative); Blood Urine Neg (Negative); Glucose Urine UA 1+ (Normal); Ketones Urine 2+ (Negative); Leukocyte Esterase Urine Negative (Negative); Nitrate Urine Negative (Negative); Protein Urine Neg (Negative); Urine Appearance Clear (CLEAR); Urine Color Yellow (Yellow); Urobilinogen Urine Norm (Negative); pH Urine 5 (5-7)
--- NOTE | 2021-02-05 03:58 | PM.HP ---
Providers/Chief Complaint Primary Care Provider: Medardo Marsh MD Chief Complaint: POSSIBLE STROKE History of Present Illness Gerardo Millan is a 70 year old male with past medical history of regular alcohol intake who presents to emergency room with complaints of left-sided weakness. He went to bed around 1 PM yesterday and woke up with the weakness at 7 PM. Currently the weakness is quickly improving. He reports associated tremors. His last alcohol was 2 days ago. He states that he did not feel like drinking last 2 days. Emergency room he was found to have severe hypoglycemia. After correction of the hypoglycemia his weakness improved. Imaging studies revealed left sided pneumonia. He also has A. fib with RVR which responded to bolus of diltiazem. The patient reports cough but denies shortness of breath or chest pain. No fever or chills. No diaphoresis. Denies nausea vomiting or diarrhea. No abdominal pain. Denies similar episodes in the past. Review of Systems General: Reports: 10 or more systems reviewed and unremarkable except in HPI and below Medications/Allergies Home Medications Medication Instructions Recorded Confirmed Last Taken Type folic acid 1 mg PO DAILY #30 tab 09/22/20 02/05/21 11/12/20 Rx multivitamin with folic acid 1 tab PO DAILY #30 tab 09/22/20 02/05/21 Unknown Rx [Thera] thiamine mononitrate (vit B1) 100 mg PO DAILY #14 tab 09/22/20 02/05/21 Unknown Rx [Vitamin B-1 (mononitrate)] aspirin 81 mg tablet,delayed 162 mg PO DAILY tab 10/18/20 02/05/21 Unknown History release budesonide-formoterol HFA 160 2 puff INHALATION BID 10/18/20 02/05/21 Unknown History mcg-4.5 mcg/actuation aerosol inhaler nitroglycerin 0.4 mg sublingual 0.4 mg SUBLINGUAL Q5M PRN 10/18/20 02/05/21 Unknown History tablet polyethylene glycol 3350 17 17 g PO DAILY 10/18/20 02/05/21 Unknown History gram/dose oral powder ondansetron HCl [Zofran] 4 mg PO Q6H PRN #20 tab 11/13/20 02/05/21 Unknown Rx Allergies Allergy/AdvReac Type Severity Reaction Status Date / Time corn Allergy ADR-Nausea Verified 02/05/21 02:01 [place] Allergy Uknown Verified 02/05/21 02:01 pear Allergy ALGY-Rash Verified 02/05/21 02:01 Penicillins Allergy ALGY-Difficulty Verified 02/05/21 02:01 Breathing PFSH Acute PFSH: Medical History Anal cancer Anxiety COPD (chronic obstructive pulmonary disease) CVA (cerebral vascular accident) Depression DVT (deep venous thrombosis) Hypertension Myocardial infarction Status post chemoradiation Surgical History History of ankle surgery History of tonsillectomy Hx of cataract extraction Hx of non-cataract eye surgery Status post colonoscopy Status post laparoscopic cholecystectomy (11/13/20) Family History Other Family history non-contributory Social History Alcohol intake: current Alcohol intake frequency: 3 or more drinks per day Household members: family Housing: House History of recent travel: Yes Vitals/I&O/Wt Last Vital Signs Temp 97.8 F 02/05/21 01:46 Pulse 117 H 02/05/21 02:16 Resp 16 02/05/21 02:16 BP 103/71 02/05/21 03:29 Pulse Ox 97 02/05/21 02:16 Weight last 48 hrs Weight 65.771 kg Physical Exam Narrative: EXAM NARRATIVE: The patient is confused but oriented x3. No acute distress. Mood and affect are appropriate. And responses are adequate. Normal speech. Eyes PERRL, extraocular muscles are intact. Neck supple. No JVD Lungs left basilar crackles are present. No respiratory distress Heart S1, S2, irregular Abdomen soft, nontender, bowel sounds are present Extremities trace edema, no cyanosis no calf tenderness bilaterally. Bilateral upper extremity tremors are present. Left upper extremity weakness 3 out of 5. Otherwise he is diffusely weak but nothing else is focal. Data : 02/05/21 01:55 02/05/21 02:20 Other Labs: Laboratory Results WBC 12.1 10^3/uL (4.0-10.0) H 02/05/21 01:55 RBC 4.41 10^6/uL (4.1-5.3) 02/05/21 01:55 Hgb 15.4 g/dL (11.7-16.6) 02/05/21 01:55 Hct 50.5 % (42.0-52.0) 02/05/21 01:55 MCV 114.5 fl (80-94) H 02/05/21 01:55 MCH 34.9 pg (28.0-34.0) H 02/05/21 01:55 MCHC 30.5 g/dL (30.0-36.0) 02/05/21 01:55 RDW 17.2 % (12.1-15.1) H 02/05/21 01:55 Plt Count 149 10^3/cmm (130-400) 02/05/21 01:55 MPV 11.6 fL (7.4-10.4) H 02/05/21 01:55 Neut % (Auto) 91.7 % 02/05/21 01:55 Lymph % (Auto) 2.7 % 02/05/21 01:55 [place] % (Auto) 5.0 % 02/05/21 01:55 Eos % (Auto) 0.0 % 02/05/21 01:55 Baso % (Auto) 0.4 % 02/05/21 01:55 Neut # (Auto) 11.11 10^3/uL (1.8-7.7) H 02/05/21 01:55 Lymph # (Auto) 0.3 10^3/uL (0.8-4.8) L 02/05/21 01:55 [place] # (Auto) 0.6 10^3/uL (0.2-0.9) 02/05/21 01:55 Eos # (Auto) 0.0 10^3/uL (0.0-0.8) 02/05/21 01:55 Baso # (Auto) 0.1 10^3/uL (0.0-0.1) 02/05/21 01:55 Nucleated RBC % (auto) 0 % 02/05/21 01:55 Nucleated RBCs # 0.0 /100WBC 02/05/21 01:55 PT 14.30 SECONDS (12.1-14.9) 02/05/21 02:20 INR 1.08 (0.8-1.2) 02/05/21 02:20 APTT 25.8 SECONDS (23.9-36.7) 02/05/21 02:20 D-Dimer 3.19 ug/mIFEU (0-0.59) H 02/05/21 02:20 Sodium 144 mmol/L (136-145) 02/05/21 02:20 Potassium 4.3 mmol/L (3.5-5.1) 02/05/21 02:20 Chloride 100 mmol/L (98-107) 02/05/21 02:20 Carbon Dioxide 7 mmol/L (22-29) L* 02/05/21 02:20 Anion Gap 41.3 (5-19) H 02/05/21 02:20 BUN 13 mg/dL (8-23) 02/05/21 02:20 Creatinine 0.6 mg/dL (0.7-1.2) L 02/05/21 02:20 GFR Calculation 133.6 mL/min (90-130) H 02/05/21 02:20 Glucose 172 mg/dL (65-115) H 02/05/21 02:20 POC Glucose 147 mg/dL (70-110) H 02/05/21 02:53 Calculated Osmolality 302 mOsm/kg (285-295) H 02/05/21 02:20 Lactate 13.1 mmol/L (0.5-2.2) H* 02/05/21 03:15 Calcium 8.7 mg/dL (8.5-10.5) 02/05/21 02:20 Total Bilirubin 0.8 mg/dL (0.15-1.2) 02/05/21 02:20 AST 161 U/L (0-40) H 02/05/21 02:20 ALT 47 U/L (0-41) H 02/05/21 02:20 Alkaline Phosphatase 119 IU/L (40-130) 02/05/21 02:20 Troponin T Baseline 17 ng/L (0-15) H 02/05/21 01:55 NT-Pro-B Natriuret Pep 360 pg/mL (0-125) H 02/05/21 02:20 Total Protein 6.9 g/dL (6.6-8.7) 02/05/21 02:20 Albumin 3.9 g/dL (3.5-5.2) 02/05/21 02:20 Globulin 3.0 g/dL (1.3-4.6) 02/05/21 02:20 Urine Color Yellow (Yellow) 02/05/21 03:07 Urine Appearance Clear (CLEAR) 02/05/21 03:07 Urine pH 5 (5-7) 02/05/21 03:07 Ur Specific [place] 1.030 (1.005-1.030) 02/05/21 03:07 Urine Protein Neg (Negative) 02/05/21 03:07 Urine Glucose (UA) 1+ (Normal) H 02/05/21 03:07 Urine Ketones 2+ (Negative) H 02/05/21 03:07 Urine Blood Neg (Negative) 02/05/21 03:07 Urine Nitrate Negative (Negative) 02/05/21 03:07 Urine Bilirubin Neg (Negative) 02/05/21 03:07 Urine Urobilinogen Norm mg/dL (Negative) 02/05/21 03:07 Ur Leukocyte Esterase Negative (Negative) 02/05/21 03:07 Ethyl Alcohol 13 mg/dL (0-10) H 02/05/21 02:20 Impressions Chest X-Ray 02/05/21 01:58 IMPRESSION: Possible left basilar pneumonia. Radiation Dose CTDIVOL = (mGy): DLP = (mGy-cm) Micro: Microbiology 02/05/21 03:04 Blood Culture - Preliminary Blood SPECIMEN COLLECTED 02/05/21 03:04 Blood Culture - Preliminary Blood SPECIMEN COLLECTED A&P Assessment and plan (1) Metabolic acidosis: Status: Acute (2) Alcohol withdrawal: Status: Acute (3) Seizure: Status: Acute (4) Left-sided weakness: Status: Acute (5) Atrial fibrillation with RVR: Status: Acute (6) Community acquired pneumonia: Status: Acute (7) Hypoxia: Status: Acute Additional A&P Information 70-year-old male with past medical history of regular alcohol use who presents with complaints of sudden onset left-sided weakness. Alcohol withdrawal seizure is suspected. He also has left-sided pneumonia, A. fib with RVR, hypoxia, hypoglycemia, severe metabolic lactic acidosis. Pneumonia. Community-acquired pneumonia is suspected. He is already started on Levaquin which we will continue. Probably this was the cause he could not drink last couple of days leading to withdrawal symptoms. Alcohol withdrawals with suspected seizures. We will start him on Librium and CIWA protocol. He will receive vitamin replacement. Left-sided weakness. Could be residual from the seizures. However will order MRI to rule out any other intracranial problems. A. fib with RVR. RVR corrected with bolus of diltiazem. Hoping that with the management of alcohol withdrawals his tachycardia will subside as well. We will monitor him on telemetry in cardiac stepdown. Hypoxia probably secondary to pneumonia. Supplemental oxygen. Incentive spirometry. DVT prophylaxis. Lovenox. CODE STATUS. He wants to be full code. The plan of care was discussed with the patient. He verbalized understanding and agreement. Attestations Medical Necessity Statement*: Based on my assessment of patient's current condition and diagnosis I expect that the patient will need to spend more than 2 midnights in the hospital Coding Level of Care Code Acute Director Perioperative for Chg Fwd Diagnoses Metabolic acidosis E87.2 Alcohol withdrawal F10.239 Seizure R56.9 Left-sided weakness R53.1 Atrial fibrillation with RVR I48.91 Community acquired pneumonia J18.9 Hypoxia R09.02
[2021-02-05 04:00] LABS: Arterial Blood Gas Hematocrit 42.7 % (42-52); Base Excess ABG -20.4 mmol/L (-2.0-2.0); Blood Gas Allen Test Pos; Blood Gas Sample Type Arterial; HCO3 ABG 7.4 mmol/L (22-26); PO2 ABG 83.5 mmHg (80.0-100.0)
[2021-02-05 04:02] LABS: Blood Gas Sample Site Radial, right; Oxygen Device ROOM AIR
--- NOTE | 2021-02-05 04:02 | ECG_ITS ---
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 Measurements Intervals [place] Rate: 107 P: 75 CA: 141 QRS: 17 QRSD: 86 T: 55 QT: 339 QTc: 454 Interpretive Statements SINUS TACHYCARDIA WITH OCCASIONAL VENTRICULAR PREMATURE COMPLEXES WITH OCCASIONAL SUPRAVENTRICULAR PREMATURE COMPLEXES MODERATE ST DEPRESSION [0.05+ mV ST DEPRESSION] Compared to ECG 11/13/2020 10:43:15 Ventricular premature complex(es) now present ST (T wave) deviation now present Sinus rhythm no longer present Myocardial infarct finding no longer present Electronically Signed On 02-05-2021 16:49:05 PLASTIC SHEETING CUTTER by Jhonathan Fernandez M.D. [id number]
[2021-02-05 04:04] LABS: ABG PH Result 7.11 (7.35-7.45)
[2021-02-05 04:07] LABS: SARS Covid-2 Antigen Negative (Negative)
[2021-02-05 04:22] LABS: Procalcitonin 0.18 ng/mL (0-0.5)
[2021-02-05] MEDS: enoxaparin 40 mg/0.4 mL Syringe SUBCUT (04:34)
[2021-02-05] MEDS: chlordiazePOXIDE 25 mg Capsule PO ×3 (04:34→19:55)
[2021-02-05] MEDS: famotidine 20 mg/2 mL INJ IVP ×2 (04:35→16:04)
[2021-02-05 04:39] LABS: Glucose Point of Care 151 mg/dL (70-110)
[2021-02-05] MEDS: lactated ringers 1,000 ML 150 ML IV (04:58)
[2021-02-05 06:41] LABS: Anion Gap 32.6 (5-19); Blood Urea Nitrogen 13 mg/dL (8-23); Carbon Dioxide 10 mmol/L (22-29); Chloride 103 mmol/L (98-107); Creatinine Clr Calc Pharmacy 89.8204; Glomerular Filtration Rate 111.8 mL/min (90-130); Glucose 129 mg/dL (65-115); Osmolality Calculated 294 mOsm/kg (285-295); Potassium 4.6 mmol/L (3.5-5.1); Sodium 141 mmol/L (136-145)
[2021-02-05 06:42] LABS: Troponin 5 2HR 22.31 ng/L (0-15)
[2021-02-05 07:07] LABS: Troponin 5 2HR Delta 5.31 ABS# (0-10)
--- NOTE | 2021-02-05 08:02 | ECG_ITS ---
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 Measurements Intervals [place] Rate: 83 P: 66 RI: 148 QRS: -1 QRSD: 82 T: 3 QT: 405 QTc: 478 Interpretive Statements SINUS RHYTHM Compared to ECG 02/05/2021 04:30:38 Sinus tachycardia no longer present Ventricular premature complex(es) no longer present ST (T wave) deviation no longer present Electronically Signed On 02-05-2021 16:46:19 LEGAL ENTITY CONTROLLER by Jhonathan Fernandez M.D. [id number]
[2021-02-05 08:05] LABS: Reflex Lactate Order REFLEX LACTIC ORDERD
[2021-02-05] MEDS: thiamine 100 mg Tablet PO (08:44)
[2021-02-05] MEDS: folic acid 1 mg Tablet PO (08:44)
[2021-02-05] MEDS: multivitamin therapeutic Tablet 1 TAB PO (08:44)
[2021-02-05] MEDS: sodium bicarbonate 8.4% 1 mEq/mL 50mL Syr 100 MEQ IVP (08:44)
--- NOTE | 2021-02-05 09:40 | PC.CHAP ---
Pastoral Care Encounter/Spiritual Assessment Type of Contact [] Declined post splitter visit [] Patient/Family/Request visit [] Outpatient visit [] Follow-up visit [] Physician referral [] Code/Alert [x] Routine visit [] Staff referral [] Actively dying [] Patient sleeping [] Family support [] [] Out of room [] Palliative care [] [] Receiving care in room [] Pre-surgical visit [] Trauma [] Long length of stay [] ICU visit [] Other: Relational/Emotional Strength [] Patient feels connected with others/family/visitors/staff [] Distress [] Loneliness/isolation [] Abandonment Spirituality of Patient [] Person of Christelle [] Attends Christian of their Christelle [] Believes in Prayer [] Reads Bible or Hinduism materials [] There are Spiritual issues to be addressed Green Building Engineer Interventions [x] Prayer [x] Active listening [x] Non-anxious presence [x] Spiritual/emotional support [] Crisis/trauma care [] Spiritual counseling [] Bereavement support [] Provided bereavement packet [] Provided Bible/devotional materials [] Provided toy/stuffed animal, coloring book to patient or family member [] Provided Communion [] Anointing/[place] [] Salvation [x] Completed spiritual assessment [] Other: Impact on Illness or Injury [] Angry [] Fearful [] Anxious [] Often cries [] Exhaustion [] Unable to work [] Unable to attend sikhism [] Unable to walk/stand [] Unable to read [] Unable to drive [] Unable to eat/drink [] Unable to sleep [] Unable to be with family [] Patient intubated [] Other: Summary talked a while with patient.. man with many talents.. feeling stronger.. but very cold Time spent with patient 10 min
[2021-02-05 10:59] LABS: Lactic Acid level (Lactate) 5.6 mmol/L (0.5-2.2)
[2021-02-05 11:22] LABS: Troponin 5 6HR 21.64 ng/L (0-15); Troponin 5 6HR Delta 4.64 ng/L (0-12)
[2021-02-05 13:36] LABS: Coronavirus Test Green County Not Detected
[2021-02-05] MEDS: sodium chloride 0.9% 1,000 ML 75 ML IV (14:51)
[2021-02-05] MEDS: LORazepam 2 mg Tablet PO (20:54)
[2021-02-06] VITALS (12 sets, daily range): BP systolic 108–137; BP diastolic 66–91; PULSE 72–125; RESP 14–34; TEMP 36.1–37.7; O2SAT 92–100
[2021-02-06] MEDS: LORazepam 2 mg/mL INJ 1 mL IVP ×3 (01:34→03:44)
--- NOTE | 2021-02-06 03:18 | PC.NURSE ---
Addendum entered by Bridgett Taylor RN 02/06/21 04:33: [address] Lawton regarding patient condition. Patient still very restless and hallucinating. Disoriented. Orders received for Tran. Will continue to monitor patient. Addendum entered by Bridgett Taylor RN 02/06/21 03:58: 0340 Patient continues to be restless and disoriented. Pulling at gown, cords, etc. States he is in the [employer] . Ativan given per protocol. Attempted to given patient PO Librium, patient unable to follow commands and swallow water/pill at this time. IV medications given as ordered. Will continue to monitor patient. Original Note: 0130 Patient becoming more and more restless. Upon entering patient room, patient had voided in the floor, unhooked IV and taken PIV catheter out and placed on bedside table. Had also removed all monitor wires. States we need to get those people out the closet . Disoriented to time and why he was in the hospital. Changed patient gown and bedding. Reoriented, ativan given per protocol. Will continue to monitor patient and update physician as needed. 0240 Upon entering patient room, patient had voided on himself and had legs hanging off side of bed. Patient very restless and disoriented, having hallucinations, trying to reach for things that are not present. Able to state his name but did not know he was in [place]. States he is here to have a baby . Dr Lawton notified. No new orders at this time. Ativan given per protocol. Will continue to monitor patient and update physician as needed.
[2021-02-06] MEDS: levofloxacin-dextrose 5 % 750 MG/150 ML PREMIX 100 MG IV (03:41)
[2021-02-06] MEDS: sodium chloride 0.9% 1,000 ML 75 ML IV (03:41)
[2021-02-06] MEDS: enoxaparin 40 mg/0.4 mL Syringe SUBCUT (03:43)
[2021-02-06] MEDS: famotidine 20 mg/2 mL INJ IVP ×2 (03:43→18:12)
[2021-02-06 04:14] LABS: Basophils % 0.2 %; Hematocrit 31.9 % (42.0-52.0); Hemoglobin 10.8 g/dL (11.7-16.6); Lymphocytes # 0.8 10^3/uL (0.8-4.8); Lymphocytes % 8.3 %; Mean Corpuscular HGB Conc 33.9 g/dL (30.0-36.0); Mean Corpuscular Volume 103.2 fl (80-94); Mean Platelet Volume 10.3 fL (7.4-10.4); Monocytes # 0.7 10^3/uL (0.2-0.9); Monocytes % 7.2 %; Neutrophils # 8.23 10^3/uL (1.8-7.7); Neutrophils % 83.8 %; Nucleated Red Blood Cells % 0 %; Platelet Count 107 10^3/cmm (130-400); Red Blood Count 3.09 10^6/uL (4.1-5.3); Red Cell Distribution Width 16.6 % (12.1-15.1); White Blood Count 9.8 10^3/uL (4.0-10.0)
[2021-02-06 04:37] LABS: Lactate (Lactic Acid level) 1.7 mmol/L (0.5-2.2)
[2021-02-06] MEDS: ziprasidone 20 mg/mL SDV IM (04:58)
[2021-02-06 05:02] LABS: Alanine Aminotransferase 23 U/L (0-41); Alkaline Phosphatase 74 IU/L (40-130); Anion Gap 14.7 (5-19); Aspartate Amino Transferase 57 U/L (0-40); Blood Urea Nitrogen 13 mg/dL (8-23); Calcium 7.8 mg/dL (8.5-10.5); Carbon Dioxide 24 mmol/L (22-29); Chloride 104 mmol/L (98-107); Creatinine Clr Calc Pharmacy 89.8204; Globulin 2.2 g/dL (1.3-4.6); Glomerular Filtration Rate 164.9 mL/min (90-130); Glucose 77 mg/dL (65-115); Magnesium 1.2 mg/dL (1.7-2.3); Osmolality Calculated 287 mOsm/kg (285-295); Phosphorus 1.1 mg/dL (2.5-4.5); Potassium 3.7 mmol/L (3.5-5.1); Sodium 139 mmol/L (136-145); Total Bilirubin 0.9 mg/dL (0.15-1.2); Total Protein 5.2 g/dL (6.6-8.7)
[2021-02-06 06:17] LABS: Slide Review Slide Review Perform
[2021-02-06] MEDS: ipratropium-albuterol 3 mL Neb INHALATION ×2 (09:14→16:28)
--- NOTE | 2021-02-06 11:45 | P.DS_ITS ---
Discharge Providers Date of Admission: 02/05/21 04:07 Date of Discharge: February 06, 2021 Attending Provider at Admission: Damien Lawton Attending Provider at Discharge: Michael Osborn MD Primary Care Provider: Medardo Marsh MD Diagnoses at Discharge Discharge Diagnosis (1) Metabolic acidosis: Status: Acute (2) Alcohol withdrawal: Status: Acute (3) Seizure: Status: Acute (4) Left-sided weakness: Status: Acute (5) Atrial fibrillation with RVR: Status: Acute (6) Community acquired pneumonia: Status: Acute (7) Hypoxia: Status: Acute Reason for Visit Reason for Visit: POSSIBLE STROKE 02476 R56.9 Hospital Course Hospital Course HPI By DR LAWTON; Gerardo Millan is a 70 year old male with past medical history of regular alcohol intake who presents to emergency room with complaints of left-sided weakness. He went to bed around 1 PM yesterday and woke up with the weakness at 7 PM. Currently the weakness is quickly improving. He reports associated tremors. His last alcohol was 2 days ago. He states that he did not feel like drinking last 2 days. Emergency room he was found to have severe hypoglycemia. After correction of the hypoglycemia his weakness improved. Imaging studies revealed left sided pneumonia. He also has A. fib with RVR which responded to bolus of diltiazem. The patient reports cough but denies shortness of breath or chest pain. No fever or chills. No diaphoresis. Denies nausea vomiting or diarrhea. No abdominal pain. Denies similar episodes in the past. HOSP COURSE: Patient was admitted for evaluation of weakness which resolved at the time of admission, patient did not undergo active withdrawal during hospitalization however experienced sundowning and delirium at night, he was given Ativan and Geodon which made him very drowsy on 02/06. His lactic acidemia has improved, he is not requiring oxygen he has stayed afebrile blood pressure is stable. He has been given magnesium and potassium. Patient will be given magnesium, thiamine, folic acid at the time of discharge. Patient is not motivated to quit alcohol. I would avoid giving benzodiazepines or phenobarbital at the time of discharge. Had MRI unremarkable no signs of acute ischemic/stroke changes. He was treated for basilar pneumonia most likely aspiration pneumonia. He will be given Augmentin 5-day regimen. Physical Exam Narrative: EXAM NARRATIVE: Patient is drowsy however responds appropriately to verbal commands Saturating well on room air Able to move his upper and lower extremities NIH 0 Abdomen soft S1, S2 Clinically looks dehydrated No audible stridor or wheezing Discharge Data Data Completed and Pending: Completed Studies During Hospitalization Category Date Time Status CT head wo con* [id number] Stat Cat Scan 02/05/21 01:58 Completed XR chest 1V diamond ble [id number] Stat Exams 02/05/21 01:58 Completed MR head wo con* 7 [id number] Routine MRI 02/05/21 Completed Pending at discharge Category Date Time Status Blood Culture Sta t Lab 02/05/21 03:04 Results MR head wo con* [id number] Routine MRI 02/05/21 12:30 Unverified Labs from last 24 hours 02/06/21 02/06/21 02/06/21 03:42 03:42 03:42 WBC 9.8 RBC 3.09 L Hgb 10.8 L Hct 31.9 L D MCV 103.2 H D MCH 35.0 H MCHC 33.9 D RDW 16.6 H Plt Count 107 L MPV 10.3 Neut % (Auto) 83.8 Lymph % (Auto) 8.3 [place] % (Auto) 7.2 Eos % (Auto) 0.0 Baso % (Auto) 0.2 Neut # (Auto) 8.23 H Lymph # (Auto) 0.8 [place] # (Auto) 0.7 Eos # (Auto) 0.0 Baso # (Auto) 0.0 Nucleated RBC % (a uto) 0 Nucleated RBCs # 0.0 Sodium 139 Potassium 3.7 Chloride 104 Carbon Dioxide 24 Anion Gap 14.7 BUN 13 Creatinine 0.5 L GFR Calculation 164.9 H Glucose 77 Calculated Osmolal ity 287 Lactate 1.7 Calcium 7.8 L Phosphorus 1.1 L Magnesium 1.2 L Total Bilirubin 0.9 AST 57 H ALT 23 Alkaline Phosphata se 74 Total Protein 5.2 L Albumin 3.0 L Globulin 2.2 Nasal/Oral COVID-1 9 PCR 02/05/21 03:07 WBC RBC Hgb Hct MCV MCH MCHC RDW Plt Count MPV Neut % (Auto) Lymph % (Auto) [place] % (Auto) Eos % (Auto) Baso % (Auto) Neut # (Auto) Lymph # (Auto) [place] # (Auto) Eos # (Auto) Baso # (Auto) Nucleated RBC % (a uto) Nucleated RBCs # Sodium Potassium Chloride Carbon Dioxide Anion Gap BUN Creatinine GFR Calculation Glucose Calculated Osmolal ity Lactate Calcium Phosphorus Magnesium Total Bilirubin AST ALT Alkaline Phosphata se Total Protein Albumin Globulin Nasal/Oral COVID-1 9 PCR Not detected Vitals: Last Vital Signs Temp 96.9 F L 02/06/21 04:00 Pulse 76 02/06/21 09:25 Resp 20 H 02/06/21 09:25 BP 108/66 02/06/21 08:00 Pulse Ox 98 02/06/21 09:25 Discharge Plan Discharge Patient Disposition: Home Condition: Stable Prescriptions: New magnesium 30 mg tablet 30 mg PO BID Qty: 10 RF: 0 Continued aspirin [Adult Aspirin Regimen] 81 mg tablet,delayed release (DR/EC) 162 mg PO DAILY RF: 0 polyethylene glycol 3350 [Miralax] 17 gram/dose powder 17 g PO DAILY RF: 0 budesonide-formoterol [Symbicort] 160-4.5 mcg/actuation HFA aerosol inhaler 2 puff inhalation BID RF: 0 nitroglycerin [Nitrostat] 0.4 mg tablet, sublingual 0.4 mg sublingual Q5M PRN (Reason: Chest Pain) RF: 0 folic acid 1 mg Tablet 1 mg PO DAILY Qty: 30 RF: 0 thiamine mononitrate (vit B1) [Vitamin B-1 (mononitrate)] 100 mg Tablet 100 mg PO DAILY Qty: 14 RF: 0 multivitamin with folic acid [Thera] 400 mcg Tablet 1 tab PO DAILY Qty: 30 RF: 0 ondansetron HCl [Zofran] 4 mg tablet 4 mg PO Q6H PRN (Reason: nausea and vomiting) Qty: 20 RF: 0 Referrals: Medardo Marsh MD [Primary Care Provider] - Discharge Diet: Regular Discharge Activity: Increase activity as tolerated Patient Instructions: Opioid Safety Discharge Attestations Status at Discharge: Cognitive status at discharge: cognitively intact , Behavioral status at discharge: cooperative , Coding Level of Care Code Acute Chg FW DC note Diagnoses Metabolic acidosis E87.2 Alcohol withdrawal F10.239 Seizure R56.9 Left-sided weakness R53.1 Atrial fibrillation with RVR I48.91 Community acquired pneumonia J18.9 Hypoxia R09.02
--- NOTE | 2021-02-06 12:00 | PC.NURSE ---
Patient has had 2 episodes of incontinence of urine. Disposable briefs changed. bed linens changed. carla care with bath wipes. Patient remains confused and has episodes of restlessness, attempting to get out of bed over side rails. Patient keeps his eyes closed when you speak to him. Patient unable to state where he is. Patient does not follow simple commands.
--- NOTE | 2021-02-06 12:01 | P.PN_ITS ---
Subjective Subjective: Interval history: Was very drowsy he received multiple doses of Ativan and Geodon overnight for delirium and hyperactivity I called his significant other who is stating that he did not pick him up and requesting neuropsych evaluation and alcohol detox program/rehab Discussed with the patient once he is more lucid, hold off on discharge planning for now, nursing home social worker notified Vitals/I&O/Wt Last Vital Signs Temp 96.9 F L 02/06/21 04:00 Pulse 76 02/06/21 09:25 Resp 20 H 02/06/21 09:25 BP 108/66 02/06/21 08:00 Pulse Ox 98 02/06/21 09:25 02/05/21 02/06/21 02/06/21 22:59 06:59 14:59 Intake Total 240 / 2600 1150 / 3750 Balance 240 / 2180 1150 / 3330 Weight last 48 hrs Weight 65.771 kg Weight 65.771 kg Physical Exam Narrative: EXAM NARRATIVE: Patient is on room air saturating well hemodynamically stable Does respond to verbal commands S1, S2 Abdomen soft Lower extremity no edema He does move all of his extremities NIH 0 Data : 02/06/21 03:42 02/06/21 03:42 Micro: Microbiology 02/05/21 03:04 Blood Culture - Preliminary Blood NEGATIVE TO DATE 02/05/21 03:04 Blood Culture - Preliminary Blood NEGATIVE TO DATE A&P Assessment and plan (1) Hypoxia: Status: Acute (2) Community acquired pneumonia: Status: Acute (3) Atrial fibrillation with RVR: Status: Acute (4) Left-sided weakness: Status: Acute (5) Seizure: Status: Acute (6) Alcohol withdrawal: Status: Acute (7) Metabolic acidosis: Status: Acute Additional A&P Information Left-sided weakness: Resolved MRI head unremarkable no signs of stroke Most likely postictal state secondary to alcohol-related withdrawal and seizures Lactic acidemia severe metabolic acidosis: Improved with aggressive hydration Patient at risk of refeeding syndrome, I have been repeating his magnesium and phosphorus Hypokalemia repleted Hypomagnesemia repleted Hypophosphatemia: Repleted A. fib without RVR alcohol-related A. fib, not a candidate of anticoagulation secondary to risk of fall related to alcohol Community-acquired pneumonia most likely aspiration pneumonia, will discharge him on Augmentin once stable Hypoxia has resolved saturating well on room air Likely will need neuropsychiatric evaluation and alcohol detox/rehab Regular diet DVT prophylaxis Lovenox Full code Attestations Medical Necessity Statement*: screen for detox rehab Time Spent in Patient Care: 16 - 35 minutes Coding Level of Care Code Acute Retail Cashier Associate for Katrin Fwd Diagnoses Hypoxia R09.02 Community acquired pneumonia J18.9 Atrial fibrillation with RVR I48.91 Left-sided weakness R53.1 Seizure R56.9 Alcohol withdrawal F10.239 Metabolic acidosis E87.2
[2021-02-06] MEDS: magnesium sulfate premix 2 GM/50 ML PIGGYBACK IV (13:57)
--- NOTE | 2021-02-06 15:00 | PC.NURSE ---
Contacted Dr. Osborn regarding patient's confusion, restlessness and inability to follow commands. Discussed medication options. Orders received.
[2021-02-06] MEDS: PHENobarbital 130 mg/mL SDV 1 mL 60 MG IM (16:10)
[2021-02-06 19:37] LABS: ABG PCO2 36.7 mmHg (35-45); ABG PH Result 7.42 (7.35-7.45); Arterial Blood Gas Hematocrit 38.9 % (42-52); Base Excess ABG -0.2 mmol/L (-2.0-2.0); Blood Gas Sample Site Brachial, right; Blood Gas Sample Type Arterial; Oxygen Device ROOM AIR; PO2 ABG 55.1 mmHg (80.0-100.0)
[2021-02-07] VITALS (9 sets, daily range): BP systolic 127–153; BP diastolic 81–89; PULSE 65–101; RESP 19–35; TEMP 36.3–36.8; O2SAT 93–100
[2021-02-07] MEDS: famotidine 20 mg/2 mL INJ IVP ×2 (04:12→16:43)
[2021-02-07] MEDS: enoxaparin 40 mg/0.4 mL Syringe SUBCUT (04:12)
[2021-02-07 04:30] LABS: Anion Gap 17.7 (5-19); Blood Urea Nitrogen 9 mg/dL (8-23); Calcium 8.4 mg/dL (8.5-10.5); Carbon Dioxide 25 mmol/L (22-29); Chloride 103 mmol/L (98-107); Glomerular Filtration Rate 164.9 mL/min (90-130); Glucose 82 mg/dL (65-115); Magnesium 1.6 mg/dL (1.7-2.3); Osmolality Calculated 292 mOsm/kg (285-295); Phosphorus 1.5 mg/dL (2.5-4.5); Potassium 3.7 mmol/L (3.5-5.1); Sodium 142 mmol/L (136-145)
[2021-02-07 04:42] LABS: Creatinine Clr Calc Pharmacy 89.8204
--- NOTE | 2021-02-07 09:53 | CT_ITS ---
WS: [id number] CT HEAD NONCONTRAST HISTORY: Altered mental status TECHNIQUE: Contiguous axial imaging performed through the brain in 2.5 mm imaging. Bone and soft tiss ue windows. Sagittal and coronal reformats reviewed. All CT scans at [facility] use at least one of these dose optimization techniques: automated exposure control; mA and/or kV adjustment per pa tient size (includes targeted exams where dose is matched to clinical indication); or iterative recon struction. DLP: 1092.36 mGy.cm COMPARISON: 02/05/2021 No acute intracranial hemorrhage, midline shift or mass effect. Moderate symmetric atrophy with moderate chronic ischemic type changes. No new infarct since 1. Ventricles: Mild ventriculomegaly is similar to the prior study and related to aging. No inferior displacement of cerebellar tonsils. Paranasal sinuses: Mild mucoperiosteal thickening in the LEFT maxillary sinus. No air-fluid levels. Mastoid air cells: Bilateral mastoiditis. Coalescence of mastoid air cells and sclerosis from chronic mastoiditis. Calvarium and scalp: Skull is intact with no soft tissue edema or swelling. CT/CT head wo con* [id number] IMPRESSION: 1. No acute intracranial hemorrhage or edema. 2. Mild cerebral atrophy with moderate chronic microvascular ischemic type manan nges. No interval development of a new infarct or ischemic disease since 021.
--- NOTE | 2021-02-07 09:57 | PC.NURSE ---
call received from Dr Byrne with stat orders Head Ct ABG ammonia lactic prolatcin
--- NOTE | 2021-02-07 10:23 | PC.CHAP ---
Pastoral Care Encounter/Spiritual Assessment Type of Contact [] Declined collateral specialist visit [] Patient/Family/Request visit [] Outpatient visit [] Follow-up visit [] Physician referral [] Code/Alert [x] Routine visit [] Staff referral [] Actively dying [x] Patient sleeping [] Family support [] [] Out of room [] Palliative care [] [] Receiving care in room [] Pre-surgical visit [] Trauma [] Long length of stay [] ICU visit [] Other: Relational/Emotional Strength [] Patient feels connected with others/family/visitors/staff [] Distress [] Loneliness/isolation [] Abandonment Spirituality of Patient [] Person of Christelle [] Attends Pentecostalism of their Christelle [] Believes in Prayer [] Reads Bible or Anglican materials [] There are Spiritual issues to be addressed Jointer Submarine [employer] Interventions [x] Prayer [] Active listening [] Non-anxious presence [] Spiritual/emotional support [] Crisis/trauma care [] Spiritual counseling [] Bereavement support [] Provided bereavement packet [] Provided Bible/devotional materials [] Provided toy/stuffed animal, coloring book to patient or family member [] Provided Communion [] Anointing/[place] [] Salvation [x] Completed spiritual assessment [] Other: Impact on Illness or Injury [] Angry [] Fearful [] Anxious [] Often cries [] Exhaustion [] Unable to work [] Unable to attend episcopalian [] Unable to walk/stand [] Unable to read [] Unable to drive [] Unable to eat/drink [] Unable to sleep [] Unable to be with family [] Patient intubated [] Other: Summary Time spent with patient
[2021-02-07 10:38] LABS: ABG PCO2 34.9 mmHg (35-45); ABG PH Result 7.49 (7.35-7.45); Alveolar-Arterial Oxygen Gradi 5.9 mmHg (5-10); Arterial Blood Gas Hematocrit 35.8 % (42-52); Base Excess ABG 3.3 mmol/L (-2.0-2.0); Blood Gas Allen Test Pos; Blood Gas Sample Site Radial, left; Blood Gas Sample Type Arterial; HCO3 ABG 26.6 mmol/L (22-26); HGB O2 Sat 90.7 % (95-100); Ionized Calcium Level - ABG 1.2 mmol/L (1.1-1.4); Methemoglobin 0.7 % (0.4-1.5); Oxygen Saturation ABG 93.2; Total Hemoglobin 11.7 g/dL (14-18)
[2021-02-07 10:56] LABS: Ammonia 27 umol/L (16-60)
[2021-02-07 10:57] LABS: Lactic Sepsis W/Reflex 0.9 mmol/L (0.5-2.2)
[2021-02-07 11:09] LABS: Prolactin 7.26 ng/mL (4.0-15.2)
[2021-02-07] MEDS: magnesium sulfate premix 2 GM/50 ML PIGGYBACK IV (13:05)
--- NOTE | 2021-02-07 14:09 | CTR_ITS ---
PROCEDURE INFORMATION: Exam: CT Angiography Head With Contrast, Arteriography Exam date and time: 02/07/2021 2:09 PM Age: 70 years old Clinical indication: Other: Difficulty swallowing. AMS; Additional info: Rule out stroke, difficulty swallowing TECHNIQUE: Imaging protocol: Computed tomography angiography of the head with contrast. Exam focused on the arteries. 3D rendering (Not supervised by radiologist): MIP and/or 3D reconstructed images were created by the technologist. Radiation optimization: All CT scans at this facility use at least one of these dose optimization techniques: automated exposure control; mA and/or kV adjustment per patient size (includes targeted exams where dose is matched to clinical indication); or iterative reconstruction. Contrast material: OMNI 350; Contrast volume: 95 ml; Contrast route: INTRAVENOUS (IV); COMPARISON: CT head wo con* [id number] 02/07/2021 11:31 AM RADIATION DOSE METRICS: Total DLP (mGy-cm): 2033.75 FINDINGS: Limitations: Study is significantly limited by patient motion. ANTERIOR CIRCULATION: Right internal carotid artery: Unremarkable. Intracranial segment is patent with no significant stenosis. No aneurysm. Right middle cerebral artery: Unremarkable. No proximal occlusion noted. Distal branches are obscured by patient motion Right anterior cerebral artery: Unremarkable. No occlusion or significant stenosis distal branches obscured by patient motion. Left internal carotid artery: Unremarkable. Intracranial segment is patent with no significant stenosis. No aneurysm. Left middle cerebral artery: Unremarkable. No occlusion or significant stenosis. No aneurysm. Distal branches obscured by patient motion. Left anterior cerebral artery: Unremarkable. No occlusion or significant stenosis. No aneurysm. Distal branches obscured by patient motion. POSTERIOR CIRCULATION: Right vertebral artery: Unremarkable. No occlusion or significant stenosis. No aneurysm. Left vertebral artery: Unremarkable. No occlusion or significant stenosis. No aneurysm. Basilar artery: Unremarkable. No occlusion or significant stenosis. No aneurysm. Right posterior cerebral artery: There is origin of the right posterior cerebral artery. No occlusion or significant stenosis Left posterior cerebral artery: Unremarkable. No occlusion or significant stenosis. No aneurysm. Brain: Limited visualization due to patient motion. Findings of chronic small vessel ischemia unchanged. No intracranial hemorrhage. Cerebral ventricles: No ventriculomegaly. Bones/joints: Unremarkable. No acute fracture. Soft tissues: Unremarkable. IMPRESSION: Study is significantly limited by patient motion. No gross evidence of major vascular occlusion. PROCEDURE INFORMATION: Exam: CT Angiography Neck With Contrast Exam date and time: 02/07/2021 2:09 PM Age: 70 years old Clinical indication: Other: Difficulty swallowing. AMS; Additional info: Rule out stroke, difficulty swallowing TECHNIQUE: Imaging protocol: Computed tomography angiography of the neck with contrast. 3D rendering (Not supervised by radiologist): MIP and/or 3D reconstructed images were created by the technologist. Radiation optimization: All CT scans at this facility use at least one of these dose optimization techniques: automated exposure control; mA and/or kV adjustment per patient size (includes targeted exams where dose is matched to clinical indication); or iterative reconstruction. Contrast material: OMNI 350; Contrast volume: 95 ml; Contrast route: INTRAVENOUS (IV); COMPARISON: CT head wo con* [id number] 02/07/2021 11:31 AM RADIATION DOSE METRICS: Total DLP (mGy-cm): 810.87 FINDINGS: Limitations: Study is somewhat limited by patient motion. Right common carotid artery: There is minimal calcification of the distal right common carotid artery and carotid bulb without stenosis as measured according to the NASCET criteria. Proximal portion obscured by motion. Right internal carotid artery: No stenosis of the extracranial segment. No dissection or occlusion. Right external carotid artery: No occlusion or stenosis of the origin. Left common carotid artery: There is mild calcified plaque at the bifurcation of the left common carotid artery without stenosis as measured according to the NASCET criteria. There could be some ulcerated plaque along the posterior wall however this is not a definite finding due to motion related artifact. Proximal portion obscured by motion. Left internal carotid artery: No stenosis of the extracranial segment. No dissection or occlusion. Left external carotid artery: No occlusion or stenosis of the origin. Right vertebral artery: No stenosis. No dissection or occlusion. Left vertebral artery: No stenosis. No dissection or occlusion. Soft tissues: Unremarkable Bones/joints: No acute fracture. Pleural spaces: There is a small to moderate left pleural effusion. CT/CT angio headneck* [id number] IMPRESSION: 1. Limited by patient motion. 2. There is no evidence of significant stenosis or occlusion in the carotid or vertebral arteries of the neck. REFERENCES: NASCET CRITERIA. The degree of internal carotid artery stenosis is based on NASCET criteria. Normal is no stenosis. Mild is less than 50% stenosis. Moderate is 50-69% stenosis. Severe is 70% to 99% stenosis. Total occlusion is no detectable patent lumen. Radiation Dose CTDIVOL = (mGy): DLP = 2034.75~810.87 (mGy-cm)
--- NOTE | 2021-02-07 14:46 | P.PN_ITS ---
Subjective Subjective: Interval history: Seen and examined this morning. Patient was very drowsy when I saw him. Stat head CT was ordered, ammonia level, lactic acid, blood gas, prolactin. Results were reviewed and nothing was remarkable. Later on the nurse reported to me that patient is having difficulty swallowing. I did go reevaluate the patient but he was able to have a conversation with me and was following all commands. He was more awake at this point. We ordered a formal swallow eval CT head and neck with contrast. We will keep n.p.o. for now until further results. Vitals/I&O/Wt Last Vital Signs Temp 98.1 F 02/07/21 12:00 Pulse 65 02/07/21 12:00 Resp 19 H 02/07/21 12:00 BP 137/81 02/07/21 12:00 Pulse Ox 93 02/07/21 12:00 02/06/21 02/07/21 02/07/21 22:59 06:59 14:59 Intake Total 0 / 0 Balance 0 / 0 Physical Exam Narrative: EXAM NARRATIVE: General: Alert oriented x3, patient seen sitting up in bed, appearing comfortable. He does look a little bit drowsy but more awake compared to the morning. He is able to talk to me tell me where he is and what year it is including his date of . HEENT: Normocephalic, atraumatic, EOMI, breathing room air Cardio: Regular rate rhythm, normal S1-S2, no murmurs rubs gallops, Respiratory: Good bilateral air entry, no wheezes no rhonchi appreciated GI: Abdomen soft, nontender, nondistended, bowel sounds + Extremities: no edema, no cyanosis Neuro: Able to follow commands. Moving all 4 extremities. Is not drooling and not having any gurgling. Able to clear secretions at this point. No focal neurological deficits at this time. He does appear slightly sleepy but not o btunded. Data : 02/06/21 03:42 02/07/21 03:27 A&P Assessment and plan (1) Community acquired pneumonia: Status: Acute (2) Alcohol withdrawal: Status: Acute (3) Atrial fibrillation with RVR: Status: Acute (4) Hypoxia: Status: Acute Additional A&P Information Left-sided weakness at admission: Resolved MRA head unremarkable for any stroke. CT head negative. Unsure if this is postictal state secondary to alcohol related withdrawal and seizures. Lactic acid ptosis with severe metabolic acidosis improved with aggressive hyd ration. Possible starvation ketosis going on admission. His glucose was low on admission as well. Weakness did improve after he did get fed. Patient risk of refeeding syndrome. Magnesium and phosphorus repleted today. Potassium repleted as well. There has been report of difficulty swallowing. There were no acute neurologic deficits that I can identify on physical exam today. We will do CTA head and neck. We will also check for acetylcholine esterase antibody to rule out myasthenia gravis at this point. Aspiration pneumonia. Patient will be discharged on Augmentin when discharged. Hypoxia from admission has resolved. He saturating well on room air. Patient will need neuropsychiatric evaluation alcohol detox/rehab. Psychiatric consult has been placed. Awaiting evaluation. Regular diet pressure n.p.o. for now until swallow evaluation. DVT prophylaxis: Lovenox We will place physical therapy consult as well. 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
[2021-02-07] MEDS: dextrose 5%-sod chloride 0.9% 1,000 ML 80 ML IV (16:42)
[2021-02-07] MEDS: iohexol 350 mg/mL 100 mL Btl IV (17:45)
--- NOTE | 2021-02-07 19:07 | PC.NURSE ---
Shift Note Frequent safety and comfort rounds continue. Orders and/or nursing care completed as indicated. Patient monitored for response to intervention and treatment(s). Pt is much more alert, oriented x4 since this whole shit. CIWA assessed and his score is not applicable for ativan per protocol. Education provided includes NPO due to swallowing difficulty and will need to keep his IV for his IV fluids, ST consulted, PT consulted for pt's weakness and plan to transition to SNF w/case mgt. Patient and/or pharmaceutical representative in needs reinforcement. Will continue to monitor. Bed alarm reset. Lindsay cares provided x2.
[2021-02-07 20:38] LABS: Glucose Point of Care 96 mg/dL (70-110)
[2021-02-08] VITALS (9 sets, daily range): BP systolic 124–151; BP diastolic 75–86; PULSE 58–83; RESP 18–25; TEMP 36.4–37.1; O2SAT 91–100
[2021-02-08 03:50] LABS: Basophils % 0.6 %; Hematocrit 34.4 % (42.0-52.0); Hemoglobin 11.8 g/dL (11.7-16.6); Lymphocytes # 0.6 10^3/uL (0.8-4.8); Lymphocytes % 9.4 %; Mean Corpuscular HGB Conc 34.3 g/dL (30.0-36.0); Mean Corpuscular Hemoglobin 34.9 pg (28.0-34.0); Mean Corpuscular Volume 101.8 fl (80-94); Mean Platelet Volume 11.1 fL (7.4-10.4); Monocytes # 0.8 10^3/uL (0.2-0.9); Monocytes % 12.4 %; Neutrophils # 5.12 10^3/uL (1.8-7.7); Neutrophils % 77.1 %; Nucleated Red Blood Cells % 0 %; Platelet Count 105 10^3/cmm (130-400); Red Blood Count 3.38 10^6/uL (4.1-5.3); Red Cell Distribution Width 16.1 % (12.1-15.1); White Blood Count 6.6 10^3/uL (4.0-10.0)
[2021-02-08 04:20] LABS: Blood Urea Nitrogen 9 mg/dL (8-23); Calcium 8.3 mg/dL (8.5-10.5); Carbon Dioxide 23 mmol/L (22-29); Chloride 101 mmol/L (98-107); Glomerular Filtration Rate 213.3 mL/min (90-130); Glucose 81 mg/dL (65-115); Magnesium 1.7 mg/dL (1.7-2.3); Osmolality Calculated 288 mOsm/kg (285-295); Sodium 140 mmol/L (136-145)
[2021-02-08 04:21] LABS: Creatinine Clr Calc Pharmacy 89.8204
[2021-02-08] MEDS: enoxaparin 40 mg/0.4 mL Syringe SUBCUT (04:34)
[2021-02-08] MEDS: famotidine 20 mg/2 mL INJ IVP ×2 (04:34→17:10)
[2021-02-08 05:07] LABS: Slide Review Slide Review Perform
[2021-02-08 06:58] LABS: Glucose Point of Care 104 mg/dL (70-110)
--- NOTE | 2021-02-08 10:22 | PC.SOCIAL ---
Pg 2 IMM Explained to pt Pg 2 IMM. No questions voiced. Provided pt a copy. Initialed, dated, & timed a copy & placed in chart.
[2021-02-08] MEDS: folic acid 1 mg Tablet PO (10:27)
[2021-02-08] MEDS: phosphorus 250 mg Tablet PO (10:27)
[2021-02-08] MEDS: thiamine 100 mg Tablet PO (10:27)
[2021-02-08] MEDS: multivitamin therapeutic Tablet 1 TAB PO (10:28)
[2021-02-08] MEDS: dextrose 5%-sod chloride 0.9% 1,000 ML 80 ML IV ×2 (10:34→22:02)
--- NOTE | 2021-02-08 10:39 | PC.CHAP ---
Pastoral Care Encounter/Spiritual Assessment Type of Contact [] Declined road worker visit [] Patient/Family/Request visit [] Outpatient visit [] Follow-up visit [] Physician referral [] Code/Alert [x] Routine visit [] Staff referral [] Actively dying [] Patient sleeping [] Family support [] [] Out of room [] Palliative care [] [x] Receiving care in room [] Pre-surgical visit [] Trauma [] Long length of stay [] ICU visit [] Other: Relational/Emotional Strength [] Patient feels connected with others/family/visitors/staff [] Distress [] Loneliness/isolation [] Abandonment Spirituality of Patient [] Person of Christelle [] Attends Druze of their Christelle [] Believes in Prayer [] Reads Bible or Adventist materials [] There are Spiritual issues to be addressed Tread Builder Interventions [] Prayer [] Active listening [] Non-anxious presence [] Spiritual/emotional support [] Crisis/trauma care [] Spiritual counseling [] Bereavement support [] Provided bereavement packet [] Provided Bible/devotional materials [] Provided toy/stuffed animal, coloring book to patient or family member [] Provided Communion [] Anointing/[place] [] Salvation [] Completed spiritual assessment [] Other: Impact on Illness or Injury [] Angry [] Fearful [x] Anxious [] Often cries [] Exhaustion [x] Unable to work [] Unable to attend christianity [] Unable to walk/stand [] Unable to read [] Unable to drive [] Unable to eat/drink [] Unable to sleep [] Unable to be with family [] Patient intubated [] Other: Summary unable to communicate negative Time spent with patient 10 mins
[2021-02-08] MEDS: potassium chloride oral liq 20 mEq/15 mL UDC 40 MEQ PO (11:11)
[2021-02-08] MEDS: potassium chloride oral liq 20 mEq/15 mL UDC PO (11:12)
--- NOTE | 2021-02-08 12:42 | PM.PN ---
Subjective Subjective: Interval history: Seen this morning. He is able to have a full conversation with me this morning. Very awake and oriented alert sitting up in recliner. Able to swallow for me. Not having any symptoms of drooling or unable to protect his airway at this point. Patient was possibly very lethargic yesterday and that is why had a questionable swallowing impairment. Nurse will be tomorrow swallow evaluation today. If able to eat we will restart his diet. For now he is on D5 normal saline. Still awaiting consult from psychiatry. Patient waiting to be seen. Patient denies a history of alcohol withdrawal seizures. Vitals/I&O/Wt Last Vital Signs Temp 98.5 F 02/08/21 08:00 Pulse 79 02/08/21 08:00 Resp 25 H 02/08/21 08:00 BP 124/86 02/08/21 08:00 Pulse Ox 91 02/08/21 08:00 02/07/21 02/08/21 02/08/21 22:59 06:59 14:59 Intake Total 1000 / 1050 Balance 1000 / 1050 Physical Exam Narrative: EXAM NARRATIVE: General: Alert oriented x3, patient seen sitting up in bed, appearing comfortable. Sitting up in recliner. Very lucid today. HEENT: Normocephalic, atraumatic, EOMI, breathing room air Cardio: Regular rate rhythm, normal S1-S2, no murmurs rubs gallops, Respiratory: Good bilateral air entry, no wheezes no rhonchi appreciated GI: Abdomen soft, nontender, nondistended, bowel sounds + Extremities: no edema, no cyanosis Neuro: Nonfocal exam. Does appear weak however generalized. Data : 02/08/21 03:35 02/08/21 03:35 A&P Assessment and plan (1) Community acquired pneumonia: Status: Acute (2) Alcohol withdrawal: Status: Acute (3) Atrial fibrillation with RVR: Status: Acute (4) Hypoxia: Status: Acute Additional A&P Information Left-sided weakness at admission: Resolved MRA head unremarkable for any stroke. CT head negative. Unsure if this is postictal state secondary to alcohol related withdrawal and seizures. Patient denies a history of having alcohol withdrawal seizures in the past. Lactic acid ptosis with severe metabolic acidosis improved with aggressive hydration. Possible starvation ketosis going on admission. His glucose was low on admission as well. Weakness did improve after he did get fed. Patient risk of refeeding syndrome. Magnesium and phosphorus repleted today. Potassium repleted as well. There has been report of difficulty swallowing. There were no acute neurologic deficits that I can identify on physical exam today. CTA head and neck did not show any remarkable findings.. We will also check for acetylcholine esterase antibody to rule out myasthenia gravis at this point. I do not believe patient has swelling improvement but will do swallow evaluation. He was seen by swallowing team yesterday and will be reseen today. RN updated at bedside. Aspiration pneumonia. Patient will be discharged on Augmentin when discharged. Hypoxia from admission has resolved. He saturating well on room air. Patient will need neuropsychiatric evaluation alcohol detox/rehab. Psychiatric consult has been placed. Awaiting evaluation. Regular diet pressure n.p.o. for now until swallow evaluation. DVT prophylaxis: Lovenox We will place physical therapy consult as well. Full code Attestations Medical Necessity Statement*: Greater than 24-hour stay at this point. Awaiting psych evaluation. Time Spent in Patient Care: 16 - 35 minutes Coding Level of Care Code Acute Tilting Head Band Sawyer for g Fwd Diagnoses Community acquired pneumonia J18.9 Alcohol withdrawal F10.239 Atrial fibrillation with RVR I48.91 Hypoxia R09.02
--- NOTE | 2021-02-08 13:54 | PC.SLP ---
Patient was unable to be awakened enough for participation in repeat swallowing assessment. Patient did not respond to his name or touch.
--- NOTE | 2021-02-08 16:23 | W.PM.PSYCONS ---
Providers/Reason for Consult Consulting Physican/Specialty*: Giorgi Abebe MD. Psychiatry. Reason for Consult*: Psychiatric evaluation. Attending Physician: Noemi Byrne MD Primary Care Provider: Medardo Marsh MD Psych Consult HPI History of Present Illness Gerardo Millan is a 70 year old male who presented to the emergency department with the following report: Chief Complaint: Neuro Symptoms/Deficit Stated Complaint: POSSIBLE STROKE Time Seen by Provider: 02/05/21 01:48 History of Present Illness: HPI Narrative: 70-year-old male presenting with I think I had another stroke . He states that he was tired, and went to bed around 1 PM yesterday. He woke up at 7 PM, and had left-sided weakness. It persisted through the evening. He presents by ambulance for this. He notes that it is improved to some degree. In route, EMS obtained a blood sugar in the 50s. It is 36 on his arrival here. He is awake, and talking. He is moving all extremities. He does note that he is an alcohol drinker, and has not had a drink in a couple of days. Onset (ago): hour(s) Last Observed Normal: 13:00 Location: left arm and left leg History of same: No Severity: moderate Quality: weak, numb and tingling Relieving factors: none Exacerbating factors: none Context: gradual onset Associated symptoms: Reports cough, anorexia, nausea, short of breath and weakness; Deny chest pain, diaphoresis, fevers/chills or headache(s) Treatments Prior to Arrival: none. He was admitted to the [facility] for definitive treatment of those issues. A psychiatric consult was requested with concerns for possible psychiatric aspects to his presentation. He presents today without confusion as has been stated prior. He was able to give me a fairly straightforward history of one of the reasons for his decreased eating being related to having cancer about 3 years ago. He reports that his stomach and bladder are now smaller and because of that is less given the possible discomfort and overflowing of his bladder. He was able to communicate fairly well though he did have some trouble with articulation seeming to hold his tongue still causing articulation sounding like he was holding his tongue between his fingers sometimes when he spoke but given enough time he was able to convey messages and answers. He denies significant psychiatric concerns at this time. No specific depression, anxiety or other symptoms of concern. He denies major issues of this kind and reports that he is doing okay. There were no concerns with orientation he did quite well where he was and what year it was. Meds Current Medications: Current Medications Generic Name Dose Route Start Last Admin Trade Name Alma PRN Reason Stop Dose Admin Albuterol/Ipratrop ium 3 ml 02/05/21 10:41 02/06/21 16:28 Ipratropium-Albu terol 3 Ml Neb INHALATION 3 ml Q6H.RESPIRATORY P RN Administration SHORTNESS OF RICARDO TH Enoxaparin Sodium 40 mg 02/05/21 04:00 02/09/21 04:55 Enoxaparin 40 Mg /0.4 Ml Syringe SUBCUT 40 mg Q24H AYE Administration Famotidine 20 mg 02/05/21 04:00 02/09/21 04:42 Famotidine 20 Mg /2 Ml Inj IVP Not Given Q12H AYE Folic Acid 1 mg 02/05/21 09:00 02/08/21 10:27 Folic Acid 1 Mg Tablet PO 1 mg DAILY AYE Administration Dextrose/Sodium Ch loride 1,000 mls @ 80 ml s/hr 02/07/21 16:00 02/08/21 22:02 Dextrose 5%-Sod Chloride 0.9% IV 80 mls/hr .[id number] AYE Administration Multivitamins Ther apeutic 1 tab 02/05/21 09:00 02/08/21 10:28 Multivitamin The rapeutic Tablet PO 1 tab DAILY AYE Administration Thiamine Mononitra te 100 mg 02/05/21 09:00 02/08/21 10:27 Thiamine 100 Mg Tablet PO 100 mg DAILY AYE Administration PFSH NPU PFSH: Medical History Anal cancer Anxiety COPD (chronic obstructive pulmonary disease) CVA (cerebral vascular accident) Depression DVT (deep venous thrombosis) Hypertension Myocardial infarction Status post chemoradiation Surgical History History of ankle surgery History of tonsillectomy Hx of cataract extraction Hx of non-cataract eye surgery Status post colonoscopy Status post laparoscopic cholecystectomy (11/13/20) Family History Other Family history non-contributory Social History Alcohol intake: current Alcohol intake frequency: 3 or more drinks per day Household members: family Housing: House History of recent travel: Yes Vitals/I&O/Wt Last Vital Signs Temp 98.5 F 02/08/21 08:00 Pulse 70 02/08/21 16:00 Resp 20 H 02/08/21 16:00 BP 151/86 02/08/21 16:00 Pulse Ox 91 02/08/21 16:00 02/08/21 14:59 Intake Total Output Total 400 / 400 Balance -400 / -400 A&P Assessment and plan (1) Hypoxia: Status: Acute (2) Community acquired pneumonia: Status: Acute (3) Atrial fibrillation with RVR: Status: Acute (4) Left-sided weakness: Status: Acute (5) Seizure: Status: Acute (6) Alcohol withdrawal: Status: Acute (7) Metabolic acidosis: Status: Acute (8) Alcoholism: Status: Acute (9) Pancreatitis: Status: Acute Qualifiers: Acute pancreatitis complication: unspecified Chronicity: acute Pancreatitis type: unspecified pancreatitis type Qualified Code(s): K85.90 - Acute pancreatitis without necrosis or infection, unspecified (10) Cholelithiasis: Status: Acute (11) Dizziness: Status: Acute (12) Vomiting: Status: Acute (13) Acute dehydration: Status: Acute Additional A&P Information This is a 70-year-old white male with history of alcohol use and significant sequela who presented with positive BAL and some cognitive sequela which are resolving. 1. Continue current medication. 2. No identified significant psychiatric concerns noted. 3. We will continue to follow. Attestations NPU Medical Necessity Statement*: N/A. Please see primary team note for additional details and medical necessity. Coding Level of Care Code Acute Hat And Cap Drying Room Attendant for Chg Fwd Diagnoses Hypoxia R09.02 Community acquired pneumonia J18.9 Atrial fibrillation with RVR I48.91 Left-sided weakness R53.1 Seizure R56.9 Alcohol withdrawal F10.239 Metabolic acidosis E87.2 Alcoholism F10.20 Pancreatitis K85.90 Acute pancreatitis complication: unspecified Chronicity: acute Pancreatitis type: unspecified pancreatitis type Cholelithiasis K80.20 Dizziness R42 Vomiting R11.10 Acute dehydration E86.0
[2021-02-08 20:07] LABS: Glucose Point of Care 105 mg/dL (70-110)
[2021-02-08] MEDS: ziprasidone 20 mg/mL SDV 10 MG IM (20:25)
--- NOTE | 2021-02-08 23:15 | PC.NURSE ---
Unable to give one time dose of IV ativan. Patient restless and combative. Vial dropped to the floor and was broken. Informed Dr Lawton and received ok to try onetime dose 2mg IV ativan
[2021-02-08] MEDS: LORazepam 2 mg/mL INJ 1 mL IVP (23:32)
[2021-02-09] VITALS (10 sets, daily range): BP systolic 129–151; BP diastolic 79–95; PULSE 0–92; RESP 18–40; TEMP 36.4–37; O2SAT 88–95
--- NOTE | 2021-02-09 04:42 | PC.NURSE ---
Patient has pulled out two IV's and continues to be disoriented and pulls everything off. Patient is combative when attempting to start a new IV. Pepcid IVP was not given.
[2021-02-09] MEDS: enoxaparin 40 mg/0.4 mL Syringe SUBCUT (04:55)
[2021-02-09 05:06] LABS: Basophils % 0.4 %; Eosinophils % 0.2 %; Hematocrit 36.9 % (42.0-52.0); Hemoglobin 12.2 g/dL (11.7-16.6); Lymphocytes # 0.6 10^3/uL (0.8-4.8); Lymphocytes % 11.8 %; Mean Corpuscular HGB Conc 33.1 g/dL (30.0-36.0); Mean Corpuscular Hemoglobin 34.6 pg (28.0-34.0); Mean Corpuscular Volume 104.5 fl (80-94); Mean Platelet Volume 9.4 fL (7.4-10.4); Monocytes # 0.9 10^3/uL (0.2-0.9); Monocytes % 17.1 %; Neutrophils # 3.72 10^3/uL (1.8-7.7); Neutrophils % 69.7 %; Nucleated Red Blood Cells % 0 %; Platelet Count 132 10^3/cmm (130-400); Red Blood Count 3.53 10^6/uL (4.1-5.3); Red Cell Distribution Width 16.1 % (12.1-15.1); White Blood Count 5.3 10^3/uL (4.0-10.0)
[2021-02-09 05:27] LABS: Anion Gap 15.2 (5-19); Blood Urea Nitrogen 8 mg/dL (8-23); Calcium 8.6 mg/dL (8.5-10.5); Carbon Dioxide 25 mmol/L (22-29); Chloride 101 mmol/L (98-107); Glomerular Filtration Rate 297.3 mL/min (90-130); Glucose 84 mg/dL (65-115); Osmolality Calculated 284 mOsm/kg (285-295); Potassium 3.2 mmol/L (3.5-5.1); Sodium 138 mmol/L (136-145)
[2021-02-09 05:36] LABS: Creatinine Clr Calc Pharmacy 89.8204
--- NOTE | 2021-02-09 05:48 | PC.NURSE ---
Dr. Lawton aware that patient has no IV access at this time and has been been noncooperative and combative with care.
[2021-02-09 08:07] LABS: Magnesium 1.4 mg/dL (1.7-2.3)
[2021-02-09] MEDS: multivitamin therapeutic Tablet 1 TAB PO (09:49)
[2021-02-09] MEDS: phosphorus 250 mg Tablet PO (09:49)
[2021-02-09] MEDS: folic acid 1 mg Tablet PO (09:49)
[2021-02-09] MEDS: thiamine 100 mg Tablet PO (09:49)
[2021-02-09] MEDS: potassium chloride oral liq 20 mEq/15 mL UDC 40 MEQ PO (09:51)
[2021-02-09] MEDS: potassium chloride oral liq 20 mEq/15 mL UDC PO (09:51)
--- NOTE | 2021-02-09 11:50 | XR_ITS ---
WS: [id number] Portable AP upright chest, 02/09/2021 Clinical Data: Pt lung sounds Comparison: Portable chest, 02/05/2021. Findings: No nodules, masses or effusions are seen. The heart is normal. The pulmonary vascularity is not increased. No pneumothorax is seen. There is patchy opacity in the left retrocardiac region whic h is diminished slightly. There is patchy opacity in the right lower lobe which may represent pneumon ia. The aortic arch is tortuous. There is an old left fifth rib fracture, old right distal clavicular fracture and right humeral neck fracture. There are clips in the right upper quadrant from a cholecy stectomy. XR/XR chest 1V portable [id number] Impression: 1. Patchy opacity in right lower lobe and retrocardiac region which may represe nt pneumonia. 2. Atherosclerosis.
--- NOTE | 2021-02-09 13:41 | PC.CHAP ---
Pastoral Care Encounter/Spiritual Assessment Type of Contact [] Declined matchbook maker visit [] Patient/Family/Request visit [] Outpatient visit xx] Follow-up visit [] Physician referral [] Code/Alert [] Routine visit [] Staff referral [] Actively dying [] Patient sleeping [] Family support [] [] Out of room [] Palliative care [] [] Receiving care in room [] Pre-surgical visit [] Trauma [xx] Long length of stay [] ICU visit [xx] Other: Staff requested no visit this date Relational/Emotional Strength [] Patient feels connected with others/family/visitors/staff [] Distress [] Loneliness/isolation [] Abandonment Spirituality of Patient [] Person of Christelle [] Attends Sikhism of their Christelle [] Believes in Prayer [] Reads Bible or Sikh materials [] There are Spiritual issues to be addressed Guillotine Trimmer Interventions [] Prayer [] Active listening [] Non-anxious presence [] Spiritual/emotional support [] Crisis/trauma care [] Spiritual counseling [] Bereavement support [] Provided bereavement packet [] Provided Bible/devotional materials [] Provided toy/stuffed animal, coloring book to patient or family member [] Provided Communion [] Anointing/Strong [] Salvation [] Completed spiritual assessment [] Other: Impact on Illness or Injury [] Angry [] Fearful [] Anxious [] Often cries [] Exhaustion [] Unable to work [] Unable to attend protestant [] Unable to walk/stand [] Unable to read [] Unable to drive [] Unable to eat/drink [] Unable to sleep [] Unable to be with family [] Patient intubated [] Other: Summary Follow up later. Time spent with patient 1 minute
--- NOTE | 2021-02-09 14:00 | PC.NURSE ---
Pt very confused pulling on lines and telemetry wires. Pt trying to get out of bed Pt high fall risk bed alarm on. Pt refuses to be redirected. When administering crushed medication to pt Pt choked and could not swallow crushed medications and suctioning was required. notified.
[2021-02-09 14:18] LABS: ABG PH Result 7.51 (7.35-7.45); Arterial Blood Gas Hematocrit 38.6 % (42-52); Base Excess ABG 1.6 mmol/L (-2.0-2.0); Blood Gas Operator Identificat AMH; Blood Gas Sample Site Brachial, right; Blood Gas Sample Type Arterial; Carboxyhemoglobin 2.1 %THgb (0.4-20.1); HCO3 ABG 23.9 mmol/L (22-26); HGB O2 Sat 86.4 % (95-100); Ionized Calcium Level - ABG 1.2 mmol/L (1.1-1.4); Methemoglobin 0.8 % (0.4-1.5); Oxygen Device ROOM AIR; PO2 ABG 50.1 mmHg (80.0-100.0); Potassium Level - ABG 3.3 mmol/L (3.5-5.0); Total Hemoglobin 12.6 g/dL (14-18)
--- NOTE | 2021-02-09 14:30 | PC.NURSE ---
Pts Lung sounds very wet course crackles with rhonci. Pts lung sounds getting progressively worse. Pt requiring suction. notified.
[2021-02-09] MEDS: magnesium sulfate premix 4 GM/100 ML PREMIX IV (16:30)
--- NOTE | 2021-02-09 16:43 | P.PN_ITS ---
Subjective Subjective: Interval history: Seen and examined this morning. Patient is awake alert and oriented. He was unable to talk very much this morning. He stated that he was a little upset and did not like all these wires over him in bed. He also stated that he had some fluid falling into his throat from his nose and he has allergies and that is bothering him. Does not have any trouble breathing. Denies any shortness of breath. Also states he does not have any trouble swallowing but he just does not feel like eating very much. He states he has a very small appetite. No acute overnight events reported by nursing staff. He was also seen by speech and swallow today. They have made the recommendations for dysphagia pur?ed diet. Patient was able to cooperate with them today. He was also seen by psychiatry yesterday evening. Vitals/I&O/Wt Last Vital Signs Temp 98.5 F 02/09/21 12:03 Pulse 68 02/09/21 12:03 Resp 24 H 02/09/21 10:12 BP 146/82 02/09/21 12:03 Pulse Ox 93 02/09/21 12:03 Physical Exam Narrative: EXAM NARRATIVE: General: Alert oriented x3, very lucid today. Sitting up in bed. Thin appearing frail male. Temporal wasting present. HEENT: Normocephalic, atraumatic, EOMI, breathing room air Cardio: Regular rate rhythm, normal S1-S2, Respiratory: Good bilateral air entry, no wheezes appreciated but mild rhonchi present throughout lung lomeli. GI: Abdomen soft, nontender, nondistended, bowel sounds + Extremities: no edema, no cyanosis Neuro: Nonfocal exam. Does appear weak however generalized. Data : 02/09/21 04:42 02/09/21 04:42 A&P Assessment and plan (1) Community acquired pneumonia: Status: Acute (2) Alcohol withdrawal: Status: Acute (3) Atrial fibrillation with RVR: Status: Acute (4) Hypoxia: Status: Acute Additional A&P Information #Left-sided weakness at admission: RESOLVED MRA head unremarkable for any stroke. CT head negative. Unsure if this is postic irina state secondary to alcohol related withdrawal and seizures. Patient denies a history of having alcohol withdrawal seizures in the past. CT head and neck did not show unremarkable findings. MRI brain was also unremarkable for stroke. CT head did not show intracranial bleed. Lactic acid, prolactin level normal. Patient denies having a seizure ever due to alcohol abuse. Stroke has been rul ed out at this point. #Severe HAGMA possibly secondary to starvation ketosis - RESOLVED Lactic acidosis at admission with severe metabolic acidosis improved with aggressive hydration. Possible starvation ketosis at admission. Glucose is also low. Patient's weakness did improve after he got fed. He did have questionable swallowing impairment. Patient was not participating with speech therapy to be evaluated for the last 2.5 days. Today however when he was more alert awake and oriented he was evaluated by speech therapy and recommendation has been made to start a diet dysphagia pur?e. Patient agrees to eat at this point. Also on my evaluation I do not believe patient has any swallowing impairment as he is able to clear his secretions and protect his airway. He is also able to demonstrate swallowing in front of me at bedside. Possible aspiration pneumonia. He will be discharged on Augmentin when he leaves the hospital. For now I will place him on Levaquin. Procalcitonin is l ow he is afebrile white count is low. X-ray did show questionable infiltrate at right lower lobe so I am empirically treating him. Due to patient's rhonchi and history of smoking that he told me at bedside. It could be possible that he is having a mild COPD exacerbation. I will put him on Solu-Medrol 40 every 12. I have also added IV Levaquin. We will watch for clinical improvement. We will also order flutter valve bedside and incentive spirometry but unsure if patient will cooperate and participate Will continue duoneb q4 hours. Patient also seen by psychiatry. Final evaluation note pending. However I did discuss with Dr. Granado in person and he does not believe that patient has any psychiatric issues at this time. Final report pending. 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 ?We will order thiamine 500 mg IV 3 times daily x2 days and then to 50 mg IV daily for 5 days. ?Patient's significant other did report that he was declining in the last few months. It is possible that this may be patient's new baseline. Stroke has been ruled out. I also do not believe patient had any seizures. He is not actively withdrawing from alcohol anymore either. -We will treat with IV phosphorus, IV magnesium IV potassium IV folic acid IV thiamine. We will restart patient's diet as per speech follow recommendations. We will follow aspiration precautions as well. DVT prophylaxis: Lovenox Physical therapy consult. Full code Attestations Medical Necessity Statement*: > 48 hours stay expected Time Spent in Patient Care: Greater than 35 minutes (>than 50% of time spent in counselling and/or direct pt care on unit) . Coding Level of Care Code Acute Victim Advocate for [facility] Fwd Diagnoses Community acquired pneumonia J18.9 Alcohol withdrawal F10.239 Atrial fibrillation with RVR I48.91 Hypoxia R09.02
[2021-02-09] MEDS: FUROsemide 10 mg/mL SDV 2mL 20 MG IVP (16:44)
[2021-02-09] MEDS: ipratropium-albuterol 3 mL Neb INHALATION ×2 (17:02→20:49)
[2021-02-09] MEDS: famotidine 20 mg/2 mL INJ IVP (17:42)
[2021-02-09] MEDS: thiamine 500 MG in sodium chloride 0.9% (100 ml) 100 ML 210 MG IV (17:44)
[2021-02-09] MEDS: levofloxacin-dextrose 5 % 750 MG/150 ML PREMIX 100 MG IV (17:46)
[2021-02-09] MEDS: folic acid 5 mg/ml MDV 10mL 1 MG IVP (18:04)
--- NOTE | 2021-02-09 18:40 | W.PM.NPUPNS ---
Subjective NPU Subjective: Interval history: Patient presents today essentially unchanged yesterday. He reports he took pills and they gave him to him but I have not spoken with his nurses. He continues to be alert and speak with some clarity though he seems less energetic and less with it today. Is continuing to be reportedly not eating appropriately but he has no explanation other than his small stomach therapy. Discussed possible intervention with primary team directly to accommodate his reported concerns for speech and swallowing. Mental Status Exam MSE Comments: This is an underweight white male looking older than his stated age with limited grooming and adequate eye contact. No abnormal movements except for psychomotor retardation. Cooperative with exam in mild distress. Speech was limited and decreased rate and volume with dysarthria. Mood described as okay affect subdued. Thought process linear. Thought content: Patient denied suicidal or homicidal ideation, there were no delusions reported or noted, he denied any auditory or visual hallucinations. Attention patient were limited and memory seem mostly reliable but none were formally tested. He is alert and oriented x3. Insight and judgment are limited impulse control is impaired. Vitals/I&O/Wt Last Vital Signs Temp 98.6 F 02/09/21 19:19 Pulse 84 02/09/21 20:51 Resp 18 02/09/21 20:51 BP 133/83 02/09/21 19:19 Pulse Ox 95 02/09/21 20:51 02/09/21 14:59 Intake Total 1000 / 1000 Balance 1000 / 1000 Data NPU : 02/09/21 04:42 02/10/21 07:52 Micro: Microbiology 02/05/21 03:04 Blood Culture - Final Blood NO GROWTH AFTER 5 DAYS 02/05/21 03:04 Blood Culture - Final Blood NO GROWTH AFTER 5 DAYS Microbiology 02/05/21 03:04 Blood Blood Culture - Final NO GROWTH AFTER 5 DAYS 02/05/21 03:04 Blood Blood Culture - Final NO GROWTH AFTER 5 DAYS A&P Additional A&P Information (1) Hypoxia: (2) Community acquired pneumonia: (3) Atrial fibrillation with RVR: (4) Left-sided weakness: (5) Seizure: (6) Alcohol withdrawal: (7) Metabolic acidosis: (8) Alcoholism: (9) Pancreatitis: (10) Cholelithiasis: (11) Dizziness: (12) Vomiting: (13) Acute dehydration: Additional A&P Information This is a 70-year-old white male with history of alcohol use and significant sequela who presented with positive BAL and some cognitive sequela which are resolving. 1. Continue current medication. 2. No identified significant psychiatric concerns noted. 3. We will continue to follow. 4. Agree to the critical piece to determining placement and appropriate discharge will be in understanding if there are any issues with swallowing for nutrition as well as medication. Attestations NPU Medical Necessity Statement*: N/A. Please see primary team note for additional details and medical necessity. Coding Level of Care Code Acute Mainframe Programmer Analyst for Katrin Mike
[2021-02-10] VITALS (18 sets, daily range): BP systolic 124–139; BP diastolic 74–86; PULSE 61–79; RESP 17–20; TEMP 36.4–36.7; O2SAT 92–95
[2021-02-10] MEDS: thiamine 500 MG in sodium chloride 0.9% (100 ml) 100 ML 210 MG IV ×4 (00:26→23:43)
[2021-02-10] MEDS: ipratropium-albuterol 3 mL Neb INHALATION ×6 (00:33→20:05)
[2021-02-10] MEDS: enoxaparin 40 mg/0.4 mL Syringe SUBCUT (04:46)
[2021-02-10] MEDS: famotidine 20 mg/2 mL INJ IVP ×2 (04:49→15:10)
[2021-02-10] MEDS: dextrose 5%-sod chloride 0.9% 1,000 ML 80 ML IV ×2 (04:57→20:33)
[2021-02-10 08:32] LABS: Anion Gap 16.5 (5-19); Blood Urea Nitrogen 11 mg/dL (8-23); Calcium 8.2 mg/dL (8.5-10.5); Carbon Dioxide 25 mmol/L (22-29); Chloride 102 mmol/L (98-107); Creatinine Clr Calc Pharmacy 89.8204; Glomerular Filtration Rate 297.3 mL/min (90-130); Glucose 119 mg/dL (65-115); Osmolality Calculated 291 mOsm/kg (285-295); Potassium 3.5 mmol/L (3.5-5.1); Sodium 140 mmol/L (136-145)
[2021-02-10] MEDS: cetirizine 10 mg Tablet PO (08:34)
[2021-02-10] MEDS: potassium chloride oral liq 20 mEq/15 mL UDC 40 MEQ PO (10:06)
[2021-02-10] MEDS: sucralfate 1 gm Tablet PO ×3 (10:06→20:33)
--- NOTE | 2021-02-10 13:37 | PC.SOCIAL ---
IMM Update pg 2 of IMM updated and reviewed w/ patient. Copy provided.
--- NOTE | 2021-02-10 15:03 | P.PN_ITS ---
Subjective Subjective: Interval history: Seen this morning. He was asleep but after woke him up he was able to talk to me. Electrolytes have been repleted. Phosphorus 3 and magnesium 2 today. He is on high-dose thiamine. He has been started on dysphagia pur?ed diet and did have a little bit of his breakfast today. We will continue aspiration precautions. We'll also be adding mirtazapine today after discussion with Dr. Granado. Vitals/I&O/Wt Last Vital Signs Temp 98.1 F 02/10/21 11:35 Pulse 72 02/10/21 11:37 Resp 18 02/10/21 11:35 BP 138/83 02/10/21 11:35 Pulse Ox 92 02/10/21 11:35 02/10/21 02/10/21 02/10/21 06:59 14:59 22:59 Intake Total 314.0909 / 1671.5909 165 / 165 Balance 314.0909 / 1671.5909 165 / 165 Physical Exam Narrative: EXAM NARRATIVE: General: Alert oriented x3, sleepy today. Sitting up in bed. Thin appearing frail male. Temporal wasting present. He was seen pretty early in the morning. By the afternoon he was more awake alert and talking. 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 Hard of hearing. Cardio: Regular rate rhythm, normal S1-S2, Respiratory: Fairly good bilateral air entry, no wheezes appreciated but mild rhonchi present throughout lung lomeli. He is able to clear his secretions. Lung sounds sound better compared to yesterday. GI: Abdomen soft, nontender, bowel sounds + Extremities: no edema, no cyanosis Neuro: Nonfocal exam. Does appear weak however generalized. Data : 02/09/21 04:42 02/10/21 07:52 Micro: Microbiology 02/05/21 03:04 Blood Culture - Final Blood NO GROWTH AFTER 5 DAYS 02/05/21 03:04 Blood Culture - Final Blood NO GROWTH AFTER 5 DAYS A&P Assessment and plan (1) Community acquired pneumonia: Status: Acute (2) Alcohol withdrawal: Status: Acute (3) Atrial fibrillation with RVR: Status: Acute (4) Hypoxia: Status: Acute Additional A&P Information #Left-sided weakness at admission: RESOLVED MRA head unremarkable for any stroke. CT head negative. Unsure if this is postictal state secondary to alcohol related withdrawal and seizures. Patient denies a history of having alcohol withdrawal seizures in the past. CT head and neck did not show unremarkable findings. MRI brain was also unremarkable for stroke. CT head did not show intracranial bleed. Lactic acid, prolactin level normal. Patient denies having a seizure ever due to alcohol abuse. Stroke has been ruled out at this point. #Severe HAGMA possibly secondary to starvation ketosis - RESOLVED Lactic acidosis at admission with severe metabolic acidosis improved with aggressive hydration. Possible starvation ketosis at admission. Glucose is also low. Patient's weakness did improve after he got fed. He did have questionable swallowing impairment. Patient was not participating with speech therapy to be evaluated for the last 2.5 days. Today however when he was more alert awake and oriented he was evaluated by speech therapy and recommendation has been made to start a diet dysphagia pur?e. Patient agrees to eat at this point. Also on my evaluation I do not believe patient has any swallowing impairment as he is able to clear his secretions and protect his airway. He is also able to demonstrate swallowing in front of me at bedside. Possible aspiration pneumonia. He will be discharged on Augmentin when he leaves the hospital. For now I will place him on Levaquin. Procalcitonin is low he is afebrile white count is low. X-ray did show questionable infiltrate at right lower lobe so I am empirically treating him. Due to patient's rhonchi and history of smoking that he told me at bedside. It could be possible that he is having a mild COPD exacerbation. I will put him on Solu-Medrol 40 every 12. I have also added IV Levaquin. We will watch for clinical improvement. We will also order flutter valve bedside and incentive spirometry but unsure if patient will cooperate and participate Will continue duoneb q4 hours. Continue current plan. Patient drank his liquid potassium today with no difficulty as per nursing staff. Patient also seen by psychiatry. However I did discuss with Dr. Granado in person and he does not believe that patient has any psychiatric issues at this time. We discussed with Dr. Abebe today. We will be adding mirtazapine 7.5 daily for the patient to increase his appetite and help him sleep better at night. 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 ?We will order thiamine 500 mg IV 3 times daily x2 days and then to 50 mg IV daily for 5 days. ?Patient's significant other did report that he was declining in the last few months. It is possible that this may be patient's new baseline. Stroke has been ruled out. I also do not believe patient had any seizures. He is not actively withdrawing from alcohol anymore either. -Phosphorus magnesium potassium have been repleted. Patient requesting to smoke we will add Nicorette gum and nicotine patch for him today. Continue pur?ed diet as per speech follow recommendations. We will follow aspiration precautions as well. DVT prophylaxis: Lovenox Physical therapy consult. Full code Attestations Medical Necessity Statement*: Greater than 48-hour stay. Coding Level of Care Code Acute Bullet Charging Machine Operator for Katrin Fwd Diagnoses Community acquired pneumonia J18.9 Alcohol withdrawal F10.239 Atrial fibrillation with RVR I48.91 Hypoxia R09.02
[2021-02-10] MEDS: levofloxacin-dextrose 5 % 750 MG/150 ML PREMIX 100 MG IV (15:09)
--- NOTE | 2021-02-10 16:09 | P.NPUPN_ITS ---
Subjective NPU Subjective: Interval history: Patient presents today clearly appearing delirious. Answering questions but unlike yesterday the answers had no bearing on the question. He would often answer and for 5 sentence responses that were rapid, dysarthric and unclear. There is no responses that were appropriately connected to the questions. Mental Status Exam MSE Comments: This is an underweight white male looking older than his stated age with limited grooming and adequate eye contact. No abnormal movements except for psychomotor retardation. Cooperative with exam in mild distress. S peech was limited and increased rate and normal volume with dysarthria. Mood not described, affect somewhat activated. Thought process linear. Thought content: Patient did not respond to lethality questions but had no aggression directed towards himself or others, there were no delusions reported, but he seemed to be confused and unclear about what was going on, he did not appear to be attending to internal stimuli during the our encounter but staff reported that he was reaching for things in the air.. Attention patient were limited and memory was unreliable but none were formally tested. He is alert and oriented x3. Insight and judgment are impaired impulse control is impaired. Vitals/I&O/Wt Last Vital Signs Temp 97.6 F 02/10/21 15:29 Pulse 61 02/10/21 15:29 Resp 17 02/10/21 15:29 BP 124/77 02/10/21 15:29 Pulse Ox 93 02/10/21 15:29 02/10/21 14:59 Intake Total 165 / 165 Output Total Balance 165 / 165 Data NPU : 02/09/21 04:42 02/10/21 07:52 Micro: Microbiology 02/05/21 03:04 Blood Culture - Final Blood NO GROWTH AFTER 5 DAYS 02/05/21 03:04 Blood Culture - Final Blood NO GROWTH AFTER 5 DAYS Microbiology 02/05/21 03:04 Blood Blood Culture - Final NO GROWTH AFTER 5 DAYS 02/05/21 03:04 Blood Blood Culture - Final NO GROWTH AFTER 5 DAYS A&P Additional A&P Information (1) Hypoxia: (2) Community acquired pneumonia: (3) Atrial fibrillation with RVR: (4) Left-sided weakness: (5) Seizure: (6) Alcohol withdrawal: (7) Metabolic acidosis: (8) Alcoholism: (9) Pancreatitis: (10) Cholelithiasis: (11) Dizziness: (12) Vomiting: (13) Acute dehydration: Additional A&P Information This is a 70-year-old white male with history of alcohol use and significant sequela who presented with positive BAL and some cognitive sequela which are resolving. 1. Continue current medication. Agree with initiation of Remeron qhs. 2. No identified significant psychiatric concerns noted. 3. We will continue to follow. 4. Agree to the critical piece to determining placement and appropriate discharge will be in understanding if there are any issues with swallowing for nutrition as well as medication. Attestations NPU Medical Necessity Statement*: N/A. Please see primary team note for emmanuel tional details and medical necessity. Coding Level of Care Code Acute Satellite Installation Technician for Katrin Mike
[2021-02-10] MEDS: nicotine 21 mg Patch 1 PATCH TRANSDERMA (17:20)
[2021-02-10] MEDS: mirtazapine 15 mg Tablet 7.5 MG PO (20:33)
--- NOTE | 2021-02-10 21:35 | PC.NURSE ---
Patient confused and agitated. Attempting to get out of bed and pulling IV lines. Patient was redirected to get into bed and attempted find a television show to watch. Patient became very agitated throwing objects and attempting to hit this nurse while yelling. This nurse was able to calm patient with verbal communication and distraction.
[2021-02-11] VITALS (10 sets, daily range): BP systolic 124–138; BP diastolic 68–79; PULSE 59–74; RESP 16–18; TEMP 36.5–36.8; O2SAT 92–97
[2021-02-11 00:12] LABS: Acetylcholine Receptor Binding <0.30 nmol/L
[2021-02-11] MEDS: famotidine 20 mg/2 mL INJ IVP ×2 (04:08→14:56)
[2021-02-11] MEDS: enoxaparin 40 mg/0.4 mL Syringe SUBCUT (04:09)
[2021-02-11] MEDS: sucralfate 1 gm Tablet PO ×3 (06:00→20:03)
--- NOTE | 2021-02-11 06:17 | PC.NURSE ---
Patient was able to rest early this morning from about 0300 with few intermittent episodes of confusion and agitation. Patient is more cooperative and pleasant with staff.
[2021-02-11] MEDS: thiamine 500 MG in sodium chloride 0.9% (100 ml) 100 ML 210 MG IV (08:25)
[2021-02-11] MEDS: cetirizine 10 mg Tablet PO (08:31)
[2021-02-11] MEDS: nicotine 21 mg Patch 1 PATCH TRANSDERMA (08:31)
[2021-02-11] MEDS: dextrose 5%-sod chloride 0.9% 1,000 ML 80 ML IV ×2 (08:36→22:01)
[2021-02-11 09:10] LABS: Basophils % 0.2 %; Hematocrit 30.8 % (42.0-52.0); Hemoglobin 10.3 g/dL (11.7-16.6); Lymphocytes # 0.3 10^3/uL (0.8-4.8); Lymphocytes % 7.1 %; Mean Corpuscular HGB Conc 33.4 g/dL (30.0-36.0); Mean Corpuscular Hemoglobin 34.4 pg (28.0-34.0); Monocytes # 0.6 10^3/uL (0.2-0.9); Monocytes % 11.4 %; Neutrophils # 3.85 10^3/uL (1.8-7.7); Neutrophils % 80.1 %; Nucleated Red Blood Cells % 0 %; Platelet Count 150 10^3/cmm (130-400); Red Blood Count 2.99 10^6/uL (4.1-5.3); Red Cell Distribution Width 16.5 % (12.1-15.1); White Blood Count 4.8 10^3/uL (4.0-10.0)
[2021-02-11 09:33] LABS: Anion Gap 13.4 (5-19); Blood Urea Nitrogen 15 mg/dL (8-23); Calcium 7.5 mg/dL (8.5-10.5); Carbon Dioxide 24 mmol/L (22-29); Chloride 109 mmol/L (98-107); Creatinine Clr Calc Pharmacy 89.8204; Glomerular Filtration Rate 213.3 mL/min (90-130); Glucose 131 mg/dL (65-115); Osmolality Calculated 299 mOsm/kg (285-295); Potassium 3.4 mmol/L (3.5-5.1); Sodium 143 mmol/L (136-145)
--- NOTE | 2021-02-11 12:13 | P.PN_ITS ---
Subjective Subjective: Interval history: Seen this morning. Patien doing really well. He is at his best compared to all previous days. Dramatic improvement seen. He is awake, alert and talking. He is requesting to go o rehab in [place] and does not want to go out of city. Vitals/I&O/Wt Last Vital Signs Temp 98.2 F 02/11/21 11:26 Pulse 74 02/11/21 11:26 Resp 17 02/11/21 11:26 BP 125/75 02/11/21 11:26 Pulse Ox 93 02/11/21 11:26 02/10/21 02/11/21 02/11/21 22:59 06:59 14:59 Intake Total 1255 / 1420 345 / 1765 964 / 964 Output Total 200 / 200 Balance 1055 / 1220 345 / 1565 964 / 964 Physical Exam Narrative: EXAM NARRATIVE: General: Alert oriented x3, sleepy today. Sitting up in bed. Thin appearing frail male. Temporal wasting present. Awake alert oriented talking. 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 Hard of hearing. Cardio: Regular rate rhythm, normal S1-S2, Respiratory: Fairly good bilateral air entry, no wheezes appreciated no wheezes or rhonchi today.. He is able to clear his secretions. Lung sounds sound better compared to yesterday. GI: Abdomen soft, nontender, bowel sounds + Extremities: no edema, no cyanosis Neuro: Nonfocal exam. Significant improvement in energy. Data : 02/11/21 08:31 02/11/21 08:31 A&P Assessment and plan (1) Community acquired pneumonia: Status: Acute (2) Alcohol withdrawal: Status: Acute (3) Atrial fibrillation with RVR: Status: Acute (4) Hypoxia: Status: Acute Additional A&P Information #Left-sided weakness at admission: RESOLVED MRA head unremarkable for any stroke. CT head negative. Unsure if this is postictal state secondary to alcohol related withdrawal and seizures. Patient denies a history of having alcohol withdrawal seizures in the past. CT head and neck did not show unremarkable findings. MRI brain was also unremarkable for stroke. CT head did not show intracranial bleed. Lactic acid, prolactin level normal. Patient denies having a seizure ever due to alcohol abuse. Stroke has been ruled out at this point. #Severe HAGMA possibly secondary to starvation ketosis - RESOLVED Lactic acidosis at admission with severe metabolic acidosis improved with aggressive hydration. Possible starvation ketosis at admission. Glucose is also low. Patient's weakness did improve after he got fed. He did have questionable swallowing impairment. Patient was not participating with speech therapy to be evaluated for the last 2.5 days. Today however when he was more alert awake and oriented he was evaluated by speech therapy and recommendation has been made to start a diet dysphagia pur?e. Patient agrees to eat at this point. Also on my evaluation I do not believe patient has any swallowing impairment as he is able to clear his secretions and protect his airway. He is also able to demonstrate swallowing in front of me at bedside. Aspiration pneumonia. - Resolved Continue flutter valve bedside and incentive spirometry. Continue duoneb q4 hours. Patient also seen by psychiatry. However I did discuss with Dr. Granado in person and he does not believe that patient has any psychiatric issues at this time. Continue mirtazipine 7.5 daily. 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 ?We will order thiamine 500 mg IV 3 times daily x2 days and then to 50 mg IV daily for 5 days. ?Patient's significant other did report that he was declining in the last few months. It is possible that this may be patient's new baseline. Stroke has been ruled out. I also do not believe patient had any seizures. He is not actively withdrawing from alcohol anymore either. -Phosphorus magnesium potassium have been repleted. Patient requesting to smoke we will add Nicorette gum and nicotine patch for him today. Continue pur?ed diet as per speech follow recommendations. We will follow aspiration precautions as well. DVT prophylaxis: Lovenox Physical therapy consult. Full code Disposition: Set up patient for rehab placement. Attestations Medical Necessity Statement*: Refer for rehab placement. Ok to be discharged medically. Time Spent in Patient Care: Greater than 35 minutes Coding Level of Care Code Acute Typewriter Operator Automatic for g Fwd Diagnoses Community acquired pneumonia J18.9 Alcohol withdrawal F10.239 Atrial fibrillation with RVR I48.91 Hypoxia R09.02
[2021-02-11] MEDS: ipratropium-albuterol 3 mL Neb INHALATION ×3 (13:26→20:16)
[2021-02-11] MEDS: potassium chloride oral liq 20 mEq/15 mL UDC 40 MEQ PO (15:14)
[2021-02-11] MEDS: levofloxacin-dextrose 5 % 750 MG/150 ML PREMIX 100 MG IV (15:14)
[2021-02-11] MEDS: mirtazapine 15 mg Tablet 7.5 MG PO (20:02)
--- NOTE | 2021-02-11 22:01 | P.NPUPN_ITS ---
Subjective NPU Subjective: Interval history: Patient presents today with significant improvement in his clarity of speech and the conversation. At this point he reports a plan to address the issues of his drinking but denies major concerns. Reports that he is hoping to get back home soon as possible and is eating and sleeping better. Mental Status Exam MSE Comments: This is an underweight white male looking older than his stated age with limited grooming and adequate eye contact. No abnormal movements except for psychomotor retardation. Cooperative with exam in mild distress. Speech was more spontaneous and more normal rate and volume with much less dysarthria. Mood described as better, affect congruent. Thought process more organized. Thought content: Patient denied suicidal homicidal ideations, there were no delusions reported, or noted and he denied auditory visual hallucinatio ns. Attention and concentration were improving and he was more reliable but none were formally tested. He is alert and oriented x3. Insight and judgment are improving impulse control is limited, but improving. Vitals/I&O/Wt Last Vital Signs Temp 98.0 F 02/11/21 19:52 Pulse 68 02/11/21 20:17 Resp 18 02/11/21 20:17 BP 124/68 02/11/21 19:52 Pulse Ox 95 02/11/21 20:17 02/11/21 02/11/21 02/11/21 06:59 14:59 22:59 Intake Total 345 / 1765 1069 / 1069 360 / 1429 Balance 345 / 1565 1069 / 1069 360 / 1429 Data NPU : 02/11/21 08:31 02/12/21 05:57 A&P Additional A&P Information Document: NPU Progress Note S A&P Additional A&P Information (1) Hypoxia: (2) Community acquired pneumonia: (3) Atrial fibrillation with RVR: (4) Left-sided weakness: (5) Seizure: (6) Alcohol withdrawal: (7) Metabolic acidosis: (8) Alcoholism: (9) Pancreatitis: (10) Cholelithiasis: (11) Dizziness: (12) Vomiting: (13) Acute dehydration: Additional A&P Information This is a 70-year-old white male with history of alcohol use and significant sequela who presented with positive BAL and some cognitive sequela which are resolving. 1. Continue current medication. 2. No identified acute inpatient psychiatric concerns. 3. We will continue to follow. 4. Agree with follow-up with mental health and addiction services. Attestations NPU Medical Necessity Statement*: N/A. Please see primary team note for additional details and medical necessity. Coding Level of Care Code Acute Transitions Rn Care Coordinator for Katrin Mike
[2021-02-12] VITALS (10 sets, daily range): BP systolic 105–125; BP diastolic 64–75; PULSE 48–95; RESP 16–18; TEMP 36.6–37.1; O2SAT 74–96
[2021-02-12] MEDS: enoxaparin 40 mg/0.4 mL Syringe SUBCUT (03:12)
[2021-02-12] MEDS: famotidine 20 mg/2 mL INJ IVP ×2 (03:46→15:36)
--- NOTE | 2021-02-12 05:00 | PC.NURSE ---
Pt pulse on pulse OX was 52, nurse manually checked and pulse was 75.
[2021-02-12] MEDS: sucralfate 1 gm Tablet PO ×4 (06:30→21:58)
[2021-02-12 06:33] LABS: Anion Gap 12.5 (5-19); Blood Urea Nitrogen 17 mg/dL (8-23); Calcium 7.9 mg/dL (8.5-10.5); Carbon Dioxide 23 mmol/L (22-29); Chloride 109 mmol/L (98-107); Glomerular Filtration Rate 133.6 mL/min (90-130); Glucose 120 mg/dL (65-115); Magnesium 1.6 mg/dL (1.7-2.3); Osmolality Calculated 295 mOsm/kg (285-295); Phosphorus 2.7 mg/dL (2.5-4.5); Potassium 3.5 mmol/L (3.5-5.1); Sodium 141 mmol/L (136-145)
[2021-02-12 06:49] LABS: Creatinine Clr Calc Pharmacy 89.8204
[2021-02-12] MEDS: cetirizine 10 mg Tablet PO (08:23)
[2021-02-12] MEDS: nicotine 21 mg Patch 1 PATCH TRANSDERMA (08:23)
--- NOTE | 2021-02-12 09:07 | W.PM.NPUPNS ---
Subjective NPU Subjective: Interval history: Patient presents today reporting that he is doing better today overall. Staff reports that he continues to maintain the improvement that was noted yesterday and has been easier to deal with and managing his food better etc. He reports today however unlike yesterday that he does want to go home and showed some ambivalence in his willingness to face his addiction challenges head on. He cannot offer a reasonable suggestion about why we would expect he can avoid future problems without a better plan. Mental Status Exam MSE Comments: This is an underweight white male looking older than his stated age with limited grooming and adequate eye contact. No abnormal movements except for psychomotor retardation. Cooperative with exam in no acute distress. Speech was more spontaneous and more normal rate and volume with much less dysarthria. Mood described as better, affect congruent. Thought process more organized. Thought content: Patient denied suicidal homicidal ideations, there were no delusions reported, or noted and he denied auditory visual hallucinations. Attention and concentration were improving and he was more reliable but none were formally tested. He is alert and oriented x3. Insight and judgment are improving impulse control is limited, but improving. Vitals/I&O/Wt Last Vital Signs Temp 97.8 F 02/12/21 08:00 Pulse 48 L 02/12/21 08:00 Resp 16 02/12/21 08:00 BP 123/72 02/12/21 08:00 Pulse Ox 94 02/12/21 08:00 Data NPU : 02/11/21 08:31 02/12/21 05:57 A&P Additional A&P Information (1) Hypoxia: (2) Community acquired pneumonia: (3) Atrial fibrillation with RVR: (4) Left-sided weakness: (5) Seizure: (6) Alcohol withdrawal: (7) Metabolic acidosis: (8) Alcoholism: (9) Pancreatitis: (10) Cholelithiasis: (11) Dizziness: (12) Vomiting: (13) Acute dehydration: Additional A&P Information This is a 70-year-old white male with history of alcohol use and significant sequela who presented with positive BAL and some cognitive sequela which are resolving. 1. Continue current medication. 2. No identified acute inpatient psychiatric concerns. 3. We will continue to follow. 4. Agree with follow-up with mental health and addiction services. Attestations NPU Medical Necessity Statement*: N/A. Please see primary team note for additional details and medical necessity. Coding Level of Care Code Acute Automotive Engineering Teacher for Katrin Mike
[2021-02-12] MEDS: thiamine 250 MG in sodium chloride 0.9% (100 ml) 100 ML 210 MG IV (09:13)
[2021-02-12] MEDS: ipratropium-albuterol 3 mL Neb INHALATION ×2 (09:33→20:31)
[2021-02-12] MEDS: dextrose 5%-sod chloride 0.9% 1,000 ML 80 ML IV (10:47)
--- NOTE | 2021-02-12 13:16 | PC.SOCIAL ---
IMM Updated IMM updated and reviewed w/ patient. Copy provided. No questions voiced. Initialed, dated, & timed copy in chart.
[2021-02-12] MEDS: levofloxacin-dextrose 5 % 750 MG/150 ML PREMIX 100 MG IV (15:37)
--- NOTE | 2021-02-12 17:22 | PM.PN ---
Subjective Subjective: Interval history: Patient was able to finish his breakfast this morning, does not need one-to-one supervision, no signs of withdrawal, he is getting IV thiamine Electrolytes replenished magnesium 1.6 will give 1 g today Discontinue IV fluids and IV Levaquin Vitals/I&O/Wt Last Vital Signs Temp 98.0 F 02/12/21 16:00 Pulse 56 L 02/12/21 16:00 Resp 16 02/12/21 16:00 BP 112/65 02/12/21 16:00 Pulse Ox 96 02/12/21 16:00 02/12/21 02/12/21 02/12/21 06:59 14:59 22:59 Intake Total 240 / 2939 1342.5 / 1342.5 Output Total 600 / 600 Balance -360 / 2339 1342.5 / 1342.5 Physical Exam Narrative: EXAM NARRATIVE: Patient has mild facial droop otherwise moving his upper and lower extremities Awake alert oriented Following commands S1, S2 Abdomen soft Breathing well on room air no active signs of restaurant distress no audible stridor or wheezing No joint swelling Patient just woke up from sleep Data : 02/11/21 08:31 02/12/21 05:57 A&P Assessment and plan (1) Community acquired pneumonia: Status: Acute (2) Hypoxia: Status: Acute (3) Atrial fibrillation with RVR: Status: Acute (4) Left-sided weakness: Status: Acute (5) Seizure: Status: Acute (6) Alcohol withdrawal: Status: Acute (7) Hypomagnesemia: Status: Acute (8) Hypophosphatemia: Status: Acute Additional A&P Information Alcohol withdrawal: Currently in remission no active withdrawal symptoms does not require phenobarbital will discontinue CIWA Acute hypoxic resp failure secondary to hypoventilation with severe hypophosphatemia: Improved with replenishment of electrolytes he is currently being treated for current acquired pneumonia with p.o. Levaquin discontinue IV antibiotics Severe hypophosphatemia and hypomagnesemia: Repleted Drowsiness and fatigue improved with replenishment of electrolytes do believe severe hypophosphatemia played a role Full code Dysphagia diet MRI head no active signs of stroke DVT prophylaxis Lovenox Lactic acidemia improved which was secondary to seizure due to alcohol withdrawal at the time of admission Awaiting long-term placement recruiting manager updated Attestations Medical Necessity Statement*: Awaiting long-term placement Time Spent in Patient Care: less than 15 minutes Coding Level of Care Code Acute Order Checker Packer Processer for Chg Fwd Diagnoses Community acquired pneumonia J18.9 Hypoxia R09.02 Atrial fibrillation with RVR I48.91 Left-sided weakness R53.1 Seizure R56.9 Alcohol withdrawal F10.239 Hypomagnesemia E83.42 Hypophosphatemia E83.39
[2021-02-12] MEDS: mirtazapine 15 mg Tablet 7.5 MG PO (21:58)
[2021-02-13] VITALS (10 sets, daily range): BP systolic 97–128; BP diastolic 63–79; PULSE 72–86; RESP 15–20; TEMP 36.5–36.8; O2SAT 90–95
[2021-02-13] MEDS: ipratropium-albuterol 3 mL Neb INHALATION ×4 (00:34→12:40)
[2021-02-13] MEDS: levoFLOXacin 750 mg Tablet PO (05:33)
[2021-02-13] MEDS: enoxaparin 40 mg/0.4 mL Syringe SUBCUT (05:33)
[2021-02-13] MEDS: famotidine 20 mg/2 mL INJ IVP (05:33)
[2021-02-13 06:49] LABS: Alanine Aminotransferase 13 U/L (0-41); Albumin Level 2.7 g/dL (3.5-5.2); Alkaline Phosphatase 63 IU/L (40-130); Anion Gap 15.3 (5-19); Aspartate Amino Transferase 20 U/L (0-40); Blood Urea Nitrogen 21 mg/dL (8-23); Calcium 8.2 mg/dL (8.5-10.5); Carbon Dioxide 20 mmol/L (22-29); Chloride 106 mmol/L (98-107); Globulin 2.4 g/dL (1.3-4.6); Glomerular Filtration Rate 133.6 mL/min (90-130); Glucose 92 mg/dL (65-115); Magnesium 1.6 mg/dL (1.7-2.3); Osmolality Calculated 289 mOsm/kg (285-295); Potassium 3.3 mmol/L (3.5-5.1); Sodium 138 mmol/L (136-145); Total Bilirubin 0.4 mg/dL (0.15-1.2); Total Protein 5.1 g/dL (6.6-8.7)
[2021-02-13 06:59] LABS: Creatinine Clr Calc Pharmacy 89.8204
[2021-02-13] MEDS: potassium chloride ER 20 mEq Tablet 40 MEQ PO (08:13)
[2021-02-13] MEDS: cetirizine 10 mg Tablet PO (08:13)
[2021-02-13] MEDS: magnesium oxide 400 mg tablet PO (08:13)
[2021-02-13] MEDS: sucralfate 1 gm Tablet PO ×2 (08:13→12:31)
[2021-02-13] MEDS: thiamine 250 MG in sodium chloride 0.9% (100 ml) 100 ML 210 MG IV (08:14)
[2021-02-13] MEDS: nicotine 21 mg Patch 1 PATCH TRANSDERMA (08:14)
[2021-02-13] MEDS: predniSONE 20 mg Tablet PO (08:18)
--- NOTE | 2021-02-13 09:54 | PM.DCS ---
Discharge Providers Date of Admission: 02/05/21 04:07 Date of Discharge: February 13, 2021 Attending Provider at Admission: Damien Lawton Attending Provider at Discharge: Michael Osborn MD Primary Care Provider: Medardo Marsh MD Diagnoses at Discharge Discharge Diagnosis (1) Community acquired pneumonia: Status: Acute (2) Hypoxia: Status: Acute (3) Atrial fibrillation with RVR: Status: Acute (4) Left-sided weakness: Status: Acute (5) Seizure: Status: Acute (6) Alcohol withdrawal: Status: Acute (7) Hypomagnesemia: Status: Acute (8) Hypophosphatemia: Status: Acute Reason for Visit Reason for Visit: POSSIBLE STROKE 88121 R56.9 Hospital Course Hospital Course HPI By DR LAWTON; Gerardo Millan is a 70 year old male with past medical history of regular alcohol intake who presents to emergency room with complaints of left-sided weakness. He went to bed around 1 PM yesterday and woke up with the weakness at 7 PM. Currently the weakness is quickly improving. He reports associated tremors. His last alcohol was 2 days ago. He states that he did not feel like drinking last 2 days. Emergency room he was found to have severe hypoglycemia. After correction of the hypoglycemia his weakness improved. Imaging studies revealed left sided pneumonia. He also has A. fib with RVR which responded to bolus of diltiazem. The patient reports cough but denies shortness of breath or chest pain. No fever or chills. No diaphoresis. Denies nausea vomiting or diarrhea. No abdominal pain. Denies similar episodes in the past. Hosp course: Patient was admitted for alcohol detox and evaluation of weakness. His weakness resolved in the ER and was deemed secondary to post ictal confusion, seizure was likely related to alcohol withdrawal. Patient has been drinking alcohol since he was 17 years old. Patient did go for MRI which was unremarkable. Secondary to severe hypomagnesemia and hypophosphatemia patient did develop profound weakness with dysphagia, he qualified for level 1 dysphagia diet, myasthenia gravis antibody were also tested which were unremarkable, he did not exhibit any focal deficits no active seizure-like activity or withdrawal. Patient did improve after replenishment of electrolytes and use of IV higher dose of thiamine. He started cooperating with physical therapist and was tolerating his diet very well without any signs of aspiration. He was treated with Augmentin for possible aspiration pneumonia however no such findings were evident on the chest imaging. Physical therapist recommended rehab however patient was adamant that he wanted to go home and take care of his chores and legal issues. He denied correction. I did talk with his brother at the time of discharge. Patient will be discharged with multivitamins, thiamine, folic acid phosphorus and magnesium supplementation. Patient has not showed any motivation to quit alcohol at this time. Patient lives with his half brother. CT head, CTA head and neck unremarkable. Physical Exam Narrative: EXAM NARRATIVE: Patient has mild facial droop otherwise moving his upper and lower extremities Awake alert oriented NiH 1 for facial droop Following commands S1, S2 Abdomen soft Breathing well on room air no active signs of restaurant distress no audible stridor or wheezing No joint swelling AOx3 gcs 15 Discharge Data Data Completed and Pending: Completed Studies During Hospitalization Category Date Time Status CT angio headneck * 30685/00135 Stat Cat Scan 02/07/21 14:[address] head wo con* 7 0450 Stat Cat Scan 02/05/21 01:[address] head wo con* 7 0450 Stat Cat Scan 02/07/21 09:53 Completed XR chest 1V diamond ble [id number] Stat Exams 02/05/21 01:58 Completed XR chest 1V diamond ble [id number] Stat Exams 02/09/21 11:50 Completed MR head wo con* 7 0551 Routine MRI 02/05/21 Completed Pending at discharge Category Date Time Status EEG electroenceph alogram Routine Exams 02/07/21 12:00 Ordered Acetylcholine Rec eptor Binding Rout ine Lab 02/07/21 14:56 Results Acetylcholine Rec eptor Block Routin e Lab 02/07/21 14:56 Results MR head wo con* 7 0551 Routine MRI 02/05/21 12:30 Unverified Labs from last 24 hours 02/13/21 06:08 Sodium 138 Potassium 3.3 L Chloride 106 Carbon Dioxide 20 L Anion Gap 15.3 BUN 21 Creatinine 0.6 L GFR Calculation 133.6 H Glucose 92 Calculated Osmolal ity 289 Calcium 8.2 L Magnesium 1.6 L Total Bilirubin 0.4 AST 20 ALT 13 Alkaline Phosphata se 63 Total Protein 5.1 L Albumin 2.7 L Globulin 2.4 Vitals: Last Vital Signs Temp 97.7 F 02/13/21 08:00 Pulse 73 02/13/21 08:00 Resp 17 02/13/21 08:00 BP 119/79 02/13/21 08:00 Pulse Ox 92 02/13/21 08:00 Discharge Plan Discharge Patient Disposition: Home Condition: Stable Prescriptions: New magnesium 30 mg tablet 30 mg PO BID Qty: 10 RF: 0 Augmentin 875-125 mg tablet 1 tab PO BID Qty: 10 RF: 0 magnesium oxide 400 mg magnesium tablet 400 mg PO BID Qty: 60 RF: 0 Phosphorous 250 mg tablet 1 tab PO DAILY Qty: 7 RF: 0 thiamine HCl (vitamin B1) 100 mg tablet 100 mg PO DAILY Qty: 60 RF: 2 folic acid 1 mg tablet 1 mg PO DAILY Qty: 30 RF: 3 potassium chloride 10 mEq capsule, extended release 10 meq PO DAILY Qty: 7 RF: 0 Continued aspirin [Adult Aspirin Regimen] 81 mg tablet,delayed release (DR/EC) 162 mg PO DAILY RF: 0 polyethylene glycol 3350 [Miralax] 17 gram/dose powder 17 g PO DAILY RF: 0 budesonide-formoterol [Symbicort] 160-4.5 mcg/actuation HFA aerosol inhaler 2 puff inhalation BID RF: 0 nitroglycerin [Nitrostat] 0.4 mg tablet, sublingual 0.4 mg sublingual Q5M PRN (Reason: Chest Pain) RF: 0 multivitamin with folic acid [Thera] 400 mcg Tablet 1 tab PO DAILY Qty: 30 RF: 0 ondansetron HCl [Zofran] 4 mg tablet 4 mg PO Q6H PRN (Reason: nausea and vomiting) Qty: 20 RF: 0 folic acid 1 mg Tablet 1 mg PO DAILY Qty: 30 RF: 3 Vitamin B-1 (mononitrate) 100 mg Tablet 100 mg PO DAILY Qty: 30 RF: 4 Discharge Orders: Discharge Order (Routine); Ordered 02/13/21 Ordered By: Michael Osborn Other Ambulatory Orders: Magnesium (Routine) Timeframe: 3 Days Facility: [facility] - Location: Lab - Main Lab Ordered By: Michael Osborn Referrals: Medardo Marsh MD [Primary Care Provider] - 02/20/21 11:00 am Discharge Diet: Regular Discharge Activity: Increase activity as tolerated Patient Instructions: Thiamine (By mouth) ([facility] Vitamin B1, Nature's..., Amoxicillin/Clavulanate Potassium (By mouth) (Augmentin, Augmentin..., Folic Acid (By mouth) (FA-8, [place], Folacin-800, Methylfolate), Magnesium Oxide (By mouth) (Mag-Ox 400, [facility]..., Community Acquired Pneumonia (DC), Alcohol Withdrawal (GEN), Opioid Safety Discharge Attestations Time Spent in Discharge Care*: less than 30 min Status at Discharge: Cognitive status at discharge: cognitively intact, Behavioral status at discharge: cooperative, Quality Metrics Clinical Quality Measures During this hospital stay, did patient experience: None Coding Level of Care Code Acute Chg FW DC note Diagnoses Community acquired pneumonia J18.9 Hypoxia R09.02 Atrial fibrillation with RVR I48.91 Left-sided weakness R53.1 Seizure R56.9 Alcohol withdrawal F10.239 Hypomagnesemia E83.42 Hypophosphatemia E83.39
--- NOTE | 2021-02-13 15:33 | PC.NURSE ---
Pt stated he had a sweatshirt, socks, underwear, and a blanket with him when he was downstairs. Clothing and blanket were not found when this nurse was getting pt ready for discharge. This nurse called [facility] and spoke with Dusty who said they did not find any belongings.
[2021-02-15 00:06] LABS: Acetylcholine Receptor Block <15 (<15)
== END 2021-02-13 15:35 | disposition home or self-care (01) | DRG 896 ==
LOC: ER 04:04 → CSU 04:52 → MEDSURG 02-10 06:44
PROVIDERS: Internal Medicine; Admitting Provider Internal Medicine; Emergency Provider Emergency Medicine; PCP Family Medicine; Visit Provider Internal Medicine
DX: F10.231 Alcohol dependence with withdrawal delirium (principal); J18.9 Pneumonia, unspecified organism; J44.0 Chronic obstructive pulmonary disease with (acute) lower respiratory infection; E87.2 Acidosis; E16.2 Hypoglycemia, unspecified; Z85.048 Personal history of other malignant neoplasm of rectum, rectosigmoid junction, and anus; Z86.73 Personal history of transient ischemic attack (TIA), and cerebral infarction without residual deficits; Z86.718 Personal history of other venous thrombosis and embolism; I10 Essential (primary) hypertension; I25.2 Old myocardial infarction; Z92.21 Personal history of antineoplastic chemotherapy; Z92.3 Personal history of irradiation; I48.91 Unspecified atrial fibrillation; E87.6 Hypokalemia; E83.42 Hypomagnesemia; Z79.82 Long term (current) use of aspirin; F17.210 Nicotine dependence, cigarettes, uncomplicated
CPT/HCPCS: 36415; 36416; 36600; 70450; 70496; 70498; 70551; 71045; 80048; 80051; 80053; 80307; 81003; 82140; 82330; 82803; 82805; 82962; 83516; 83519; 83605; 83735; 83880; 84100; 84145; 84146; 84484; 85025; 85378; 85610; 85730; 87040; 87426; 87635; 92507; 92523; 92526; 92610; 93005; 94640; 94664; 96365; 96367; 96372; 96375; 97110; 97116; 97162; 97530; 99285; J1650; J1940; J1956; J2060; J2405; J2920; J3411; J3475; J3486; J3490; J7030; J7512; Q9967

== ENCOUNTER 2021-02-15 15:23 | Outpatient (CLI) | payer MEDICARE, MEDICAID, SELFPAY ==
[2021-02-15] VITALS (10 sets, daily range): BP systolic 119–148; BP diastolic 71–92; PULSE 54–96; RESP 14–23; TEMP 36.8–36.9; O2SAT 87–97; BMI 19.6; BMI 21.2
--- NOTE | 2021-02-15 15:43 | ED_ITS ---
HPI - General Adult General: Chief complaint: Weakness Stated complaint: GENERALIZED WEAKNESS Time Seen by Provider: 02/15/21 15:38 History of Present Illness: HPI narrative: 70-year-old male was recently hospitalized for pneumonia A. fib with RVR. Patient drinks regularly. He was also profoundly hypoglycemic. There were concerns about his social setting and his ability to maintain his own ADLs. He was admitted on February 05 discharged on February 13. Since going home he states he has been lightheaded dizzy and weak has had multiple falls he fell last night he states and remained on the ground overnight.. Onset (ago): day(s) Radiation: non-radiation Pain Consistency: constant Relieving factors: none Exacerbating factors: other (Drinking alcohol) Associated symptoms: Reports malaise; Deny chest pain, dyspnea, nausea, rash or vomiting Treatments prior to arrival: none Review of Systems Const: Reports: fatigue and malaise; Denies: fever(s), chills, body aches or change in appetite ENMT: Denies: throat pain, ear or mastoid pain, nasal discharge or nasal congestion Card: Denies: chest pain, edema, dyspnea on exertion or orthopnea Resp: Denies: dyspnea, productive cough or non-productive cough GI: Denies: abdominal pain, nausea, vomiting, hematemesis, coffee ground emesis, diarrhea, constipation, bloating, hematochezia or melena : Denies: flank pain, dysuria, urinary frequency or urinary urgency Skin/Breast: Denies: rash or pruritus PFSH ED PFSH: Medical History Acute dehydration Alcoholism Anal cancer Anxiety Cholelithiasis COPD (chronic obstructive pulmonary disease) CVA (cerebral vascular accident) Depression Dizziness DVT (deep venous thrombosis) Hypertension Myocardial infarction Pancreatitis Status post chemoradiation Vomiting Surgical History History of ankle surgery History of tonsillectomy Hx of cataract extraction Hx of non-cataract eye surgery Status post colonoscopy Status post laparoscopic cholecystectomy (11/13/20) Family History Other Family history non-contributory Social History Alcohol intake: current Alcohol intake frequency: 3 or more drinks per day Household members: family Housing: House History of recent travel: Yes Physical Exam Const: GENERAL APPEARANCE: cooperative and comfortable ORIENTATION/CONSCIOUSNESS: Yes awake, Yes oriented to person, Yes oriented to place and Yes oriented to time HENMT: COMMON NORMALS: normocephalic, atraumatic and hearing grossly normal bilaterally HEAD & SCALP: normocephalic and atraumatic Neck/C-Spine: COMMON NORMALS: no JVD Resp: COMMON NORMALS: normal respiratory effort, No retractions, No use of accessory muscles and clear to auscultation bilaterally AUSCULTATION: clear to auscultation bilaterally Cardio: COMMON NORMALS: no JVD, regular rate, regular rhythm and No murmurs present (Cardio) RATE: regular rate RHYTHM: regular rhythm GI: COMMON NORMALS: Soft to palpation and No hepatosplenomegaly present AUSCULTATION: Yes normoactive bowel sounds PALPATION: Yes Soft to palpation, No Tenderness to palpation present (GI), No Guarding due to palpation present (GI) and Yes No hepatosplenomegaly present Extremity: COMMON NORMALS: normal to inspection, capillary refill normal, no clubbing, cyanosis or edema, no calf tenderness and no pedal edema Neuro: SENSORIUM/ORIENTATION: Yes oriented to person, Yes oriented to place and Yes oriented to time Skin: COMMON NORMALS: no rashes or lesions noted GENERAL SKIN EXAM: no rashes or lesions noted Course Vital Signs: Vital signs: Vital Signs Temperature 97.8 F 02/17/21 04:00 Pulse Rate 66 02/17/21 04:00 Respiratory Rate 17 02/17/21 04:00 Blood Pressure 136/74 02/17/21 04:00 Pulse Oximetry 93 02/17/21 04:00 MDM - General Adult MDM Narrative: Medical decision making narrative: Hypokalemic hypomagnesemic. Patient unable to manage himself he cannot stand or get up. He is going to need higher level of care. Will admit for rebalancing of electrolytes. Discussed with hospitalist orders written Lab Data: Labs: Lab Results 02/15/21 02/15/21 02/15/21 16:00 16:00 16:00 WBC 10.5 10^3/uL H 10 ^3/uL (4.0-10.0) RBC 3.28 10^6/uL L 10 ^6/uL (4.1-5.3) Hgb 11.3 g/dL L g/dL (11.7-16.6) Hct 34.3 % L % (42.0-52.0) MCV 104.6 fl H fl (80-94) MCH 34.5 pg H pg (28.0-34.0) MCHC 32.9 g/dL g/dL (30.0-36.0) RDW 16.3 % H % (12.1-15.1) Plt Count 203 10^3/cmm 10^3 /cmm (130-400) MPV 11.8 fL H fL (7.4-10.4) Neut % (Auto) 79.5 % % Lymph % (Auto) 10.3 % % [place] % (Auto) 8.2 % % Eos % (Auto) 0.5 % % Baso % (Auto) 0.1 % % Neut # (Auto) 8.35 10^3/uL H 10 ^3/uL (1.8-7.7) Lymph # (Auto) 1.1 10^3/uL 10^3/ uL (0.8-4.8) [place] # (Auto) 0.9 10^3/uL 10^3/ uL (0.2-0.9) Eos # (Auto) 0.1 10^3/uL 10^3/ uL (0.0-0.8) Baso # (Auto) 0.0 10^3/uL 10^3/ uL (0.0-0.1) Nucleated RBC % (a uto) 0 % % Nucleated RBCs # 0.0 /100WBC /100W BC Sodium 137 mmol/L mmol/L (136-145) Potassium 3.0 mmol/L L mmol /L (3.5-5.1) Chloride 100 mmol/L mmol/L (98-107) Carbon Dioxide 19 mmol/L L mmol/ L (22-29) Anion Gap 21.0 H (5-19) BUN 18 mg/dL mg/dL (8-23) Creatinine 0.5 mg/dL L mg/dL (0.7-1.2) GFR Calculation 164.9 mL/min H mL /min (90-130) Glucose 98 mg/dL mg/dL (65-115) Calculated Osmolal ity 286 mOsm/kg mOsm/ kg (285-295) Calcium 7.8 mg/dL L mg/dL (8.5-10.5) Magnesium 1.5 mg/dL L mg/dL (1.7-2.3) Iron TIBC % Saturation Unsat Iron Binding Total Bilirubin 1.2 mg/dL mg/dL (0.15-1.2) AST 19 U/L U/L (0-40) ALT 14 U/L U/L (0-41) Alkaline Phosphata se 72 IU/L IU/L (40-130) Creatine Kinase 48 U/L U/L (39-308) Troponin T Baselin e 17 ng/L H ng/L (0-15) Troponin T 120 Min [place] Delta Troponin T Troponin T Hi Sens 6Hr Troponin T Hi Sens 6Hr Delta Total Protein 5.5 g/dL L g/dL (6.6-8.7) Albumin 2.9 g/dL L g/dL (3.5-5.2) Globulin 2.6 g/dL g/dL (1.3-4.6) Vitamin B12 Folate Urine Color Urine Appearance Urine pH Ur Specific Gravit y Urine Protein Urine Glucose (UA) Urine Ketones Urine Blood Urine Nitrate Urine Bilirubin Urine Urobilinogen Ur Leukocyte Sandhya ase Ethyl Alcohol SARS-CoV-2 Ag (Rap id) 02/15/21 02/15/21 02/15/21 16:00 16:00 16:00 WBC RBC Hgb Hct MCV MCH MCHC RDW Plt Count MPV Neut % (Auto) Lymph % (Auto) [place] % (Auto) Eos % (Auto) Baso % (Auto) Neut # (Auto) Lymph # (Auto) [place] # (Auto) Eos # (Auto) Baso # (Auto) Nucleated RBC % (a uto) Nucleated RBCs # Sodium Potassium Chloride Carbon Dioxide Anion Gap BUN Creatinine GFR Calculation Glucose Calculated Osmolal ity Calcium Magnesium Iron 27 ug/dL L ug/dL (59-158) TIBC 159 mcg/dl mcg/dl % Saturation 16.9 % L % (20-50) Unsat Iron Binding 132 ug/dL ug/dL (112-347) Total Bilirubin AST ALT Alkaline Phosphata se Creatine Kinase Cancelled Troponin T Baselin e Troponin T 120 Min [place] Delta Troponin T Troponin T Hi Sens 6Hr Troponin T Hi Sens 6Hr Delta Total Protein Albumin Globulin Vitamin B12 1690 pg/mL H pg/m L (232-1245) Folate 11.9 ng/mL ng/mL (4.5-32.2) Urine Color Urine Appearance Urine pH Ur Specific Gravit y Urine Protein Urine Glucose (UA) Urine Ketones Urine Blood Urine Nitrate Urine Bilirubin Urine Urobilinogen Ur Leukocyte Sandhya ase Ethyl Alcohol < 10 mg/dL mg/dL (0-10) SARS-CoV-2 Ag (Rap id) 02/15/21 02/15/21 02/16/21 18:38 22:05 03:30 WBC RBC Hgb Hct MCV MCH MCHC RDW Plt Count MPV Neut % (Auto) Lymph % (Auto) [place] % (Auto) Eos % (Auto) Baso % (Auto) Neut # (Auto) Lymph # (Auto) [place] # (Auto) Eos # (Auto) Baso # (Auto) Nucleated RBC % (a uto) Nucleated RBCs # Sodium Potassium Chloride Carbon Dioxide Anion Gap BUN Creatinine GFR Calculation Glucose Calculated Osmolal ity Calcium Magnesium Iron TIBC % Saturation Unsat Iron Binding Total Bilirubin AST ALT Alkaline Phosphata se Creatine Kinase Troponin T Baselin e Troponin T 120 Min [place] 15.61 ng/L H ng/L (0-15) Delta Troponin T -1.39 ABS# L ABS# (0-10) Troponin T Hi Sens 6Hr 15.61 ng/L H ng/L (0-15) Troponin T Hi Sens 6Hr Delta -1.39 ng/L L ng/L (0-12) Total Protein Albumin Globulin Vitamin B12 Folate Urine Color Yellow (Yellow) Urine Appearance Clear (CLEAR) Urine pH 6.5 (5-7) Ur Specific Gravit y 1.010 (1.005-1.030) Urine Protein Neg (Negative) Urine Glucose (UA) Norm (Normal) Urine Ketones Negative (Negative) Urine Blood Neg (Negative) Urine Nitrate Negative (Negative) Urine Bilirubin Neg (Negative) Urine Urobilinogen Neg mg/dL mg/dL (Negative) Ur Leukocyte Sandhya ase Negative (Negative) Ethyl Alcohol SARS-CoV-2 Ag (Rap id) 02/16/21 02/16/21 02/16/21 05:32 05:32 13:20 WBC 10.1 10^3/uL H 10 ^3/uL (4.0-10.0) RBC 2.93 10^6/uL L 10 ^6/uL (4.1-5.3) Hgb 10.1 g/dL L g/dL (11.7-16.6) Hct 30.9 % L % (42.0-52.0) MCV 105.5 fl H fl (80-94) MCH 34.5 pg H pg (28.0-34.0) MCHC 32.7 g/dL g/dL (30.0-36.0) RDW 16.3 % H % (12.1-15.1) Plt Count 160 10^3/cmm 10^3 /cmm (130-400) MPV 12.0 fL H fL (7.4-10.4) Neut % (Auto) 80.7 % % Lymph % (Auto) 7.4 % % [place] % (Auto) 9.6 % % Eos % (Auto) 1.1 % % Baso % (Auto) 0.1 % % Neut # (Auto) 8.19 10^3/uL H 10 ^3/uL (1.8-7.7) Lymph # (Auto) 0.8 10^3/uL 10^3/ uL (0.8-4.8) [place] # (Auto) 1.0 10^3/uL H 10^ 3/uL (0.2-0.9) Eos # (Auto) 0.1 10^3/uL 10^3/ uL (0.0-0.8) Baso # (Auto) 0.0 10^3/uL 10^3/ uL (0.0-0.1) Nucleated RBC % (a uto) 0 % % Nucleated RBCs # 0.0 /100WBC /100W BC Sodium Potassium Chloride Carbon Dioxide Anion Gap BUN Creatinine GFR Calculation Glucose Calculated Osmolal ity Calcium Magnesium 1.6 mg/dL L mg/dL (1.7-2.3) Iron TIBC % Saturation Unsat Iron Binding Total Bilirubin AST ALT Alkaline Phosphata se Creatine Kinase Troponin T Baselin e Troponin T 120 Min [place] Delta Troponin T Troponin T Hi Sens 6Hr Troponin T Hi Sens 6Hr Delta Total Protein Albumin Globulin Vitamin B12 Folate Urine Color Urine Appearance Urine pH Ur Specific Gravit y Urine Protein Urine Glucose (UA) Urine Ketones Urine Blood Urine Nitrate Urine Bilirubin Urine Urobilinogen Ur Leukocyte Sandhya ase Ethyl Alcohol SARS-CoV-2 Ag (Rap id) Negative (Negative) Discharge Plan Discharge Patient Disposition: Admitted As Inpatient Clinical Impression: Generalized weakness, Alcohol abuse, Hypomagnesemia, Hypokalemia Coding Level of Care Code ED Supervisor Cytology for Katrin Mike
--- NOTE | 2021-02-15 16:03 | XRR_ITS ---
PROCEDURE INFORMATION: Exam: XR Chest Exam date and time: 02/15/2021 4:03 PM Age: 70 years old Clinical indication: Cough and dyspnea; Additional info: Dyspnea/cough, fall twice in 2 days TECHNIQUE: Imaging protocol: XR of the chest. Views: 1 view. COMPARISON: CR XR chest 1V portable [id number] 02/09/2021 12:03 PM FINDINGS: Lungs: Left lower lobe atelectasis. Pleural spaces: Unremarkable. No pleural effusion. No pneumothorax. Heart/Mediastinum: Cardiomegaly. Bones/joints: Left posterior 4th and 5th chronic rib fractures again seen. Suspected right humeral neck chronic fracture again seen. Intraperitoneal space: Right upper quadrant surgical clips. XR/XR chest 1V portable [id number] IMPRESSION: 1. Cardiomegaly. 2. Left lower lobe atelectasis. 3. Left posterior 4th and 5th chronic rib fractures again seen 4. Suspected right humeral neck chronic fracture again seen. 5. Right upper quadrant surgical clips. Radiation Dose CTDIVOL = (mGy): DLP = (mGy-cm)
[2021-02-15 16:31] LABS: Basophils % 0.1 %; Eosinophils # 0.1 10^3/uL (0.0-0.8); Eosinophils % 0.5 %; Hematocrit 34.3 % (42.0-52.0); Hemoglobin 11.3 g/dL (11.7-16.6); Lymphocytes # 1.1 10^3/uL (0.8-4.8); Lymphocytes % 10.3 %; Mean Corpuscular HGB Conc 32.9 g/dL (30.0-36.0); Mean Corpuscular Hemoglobin 34.5 pg (28.0-34.0); Mean Corpuscular Volume 104.6 fl (80-94); Mean Platelet Volume 11.8 fL (7.4-10.4); Monocytes # 0.9 10^3/uL (0.2-0.9); Monocytes % 8.2 %; Neutrophils # 8.35 10^3/uL (1.8-7.7); Neutrophils % 79.5 %; Nucleated Red Blood Cells % 0 %; Platelet Count 203 10^3/cmm (130-400); Red Blood Count 3.28 10^6/uL (4.1-5.3); Red Cell Distribution Width 16.3 % (12.1-15.1); White Blood Count 10.5 10^3/uL (4.0-10.0)
[2021-02-15 16:47] LABS: Slide Review Slide Review Perform
[2021-02-15 16:58] LABS: Troponin(5th) Baseline 17 ng/L (0-15)
[2021-02-15 16:59] LABS: Alanine Aminotransferase 14 U/L (0-41); Albumin Level 2.9 g/dL (3.5-5.2); Alkaline Phosphatase 72 IU/L (40-130); Aspartate Amino Transferase 19 U/L (0-40); Blood Urea Nitrogen 18 mg/dL (8-23); Calcium 7.8 mg/dL (8.5-10.5); Carbon Dioxide 19 mmol/L (22-29); Chloride 100 mmol/L (98-107); Creatine Phosphokinase 48 U/L (39-308); Creatinine Clr Calc Pharmacy 89.8204; Globulin 2.6 g/dL (1.3-4.6); Glomerular Filtration Rate 164.9 mL/min (90-130); Glucose 98 mg/dL (65-115); Magnesium 1.5 mg/dL (1.7-2.3); Osmolality Calculated 286 mOsm/kg (285-295); Sodium 137 mmol/L (136-145); Total Bilirubin 1.2 mg/dL (0.15-1.2); Total Protein 5.5 g/dL (6.6-8.7)
--- NOTE | 2021-02-15 17:20 | PC.NURSE ---
Upon arrival into room pt was placed on continuous cardiac, BP, and oxygen saturation level monitoring.
--- NOTE | 2021-02-15 17:59 | ECG_ITS ---
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 Measurements Intervals [place] Rate: 53 P: 46 ME: 128 QRS: 13 QRSD: 84 T: 65 QT: 485 QTc: 459 Interpretive Statements SINUS BRADYCARDIA NONSPECIFIC T-WAVE ABNORMALITY PROLONGED QT INTERVAL Compared to ECG 02/05/2021 10:30:55 T-wave abnormality now present Prolonged QT interval now present Sinus rhythm no longer present Electronically Signed On 02-16-2021 16:16:33 ALMOND ROASTER by Kylah Rodriguez M.D. [id number]
--- NOTE | 2021-02-15 18:30 | PM.HP ---
Providers/Chief Complaint Primary Care Provider: Medardo Marsh MD Chief Complaint: GENERALIZED WEAKNESS History of Present Illness Gerardo Millan is a 70 year old male recently admitted between feb 05 to feb 13 for left sided weakness. he has a h/o alcohol dependence. Patient was admitted for alcohol detox and evaluation of weakness. His weakness resolved in the ER and was deemed secondary to post ictal confusion, seizure was likely related to alcohol withdrawal. MRI head was unremarkable. Secondary to severe hypomagnesemia and hypophosphatemia patient did develop profound weakness with dysphagia, he qualified for level 1 dysphagia diet, myasthenia gravis antibody were also tested which were unremarkable, he did not exhibit any focal deficits no active seizure-like activity or withdrawal. Patient did improve after replenishment of electrolytes and use of IV higher dose of thiamine. He started cooperating with physical therapist and was tolerating his diet very well without any signs of aspiration. He was treated with Augmentin for possible aspiration pneumonia however no such findings were evident on the chest imaging. Physical therapist recommended rehab however patient was adamant that he wanted to go home and take care of his chores and legal issues. He declined group home. He was discharged with multivitamins, thiamine, folic acid phosphorus and magnesium supplementation. returned today as since returning home h continued to c/o weakness, was light headed and dizzy and states he has been falling multiple time. He has had difficulty ambulating within his home. Review of Systems General: Reports: 10 or more systems reviewed and unremarkable except in HPI and below Const: Denies: fever(s), chills, body aches, change in appetite, change in weight, malaise, night sweats, diaphoresis, change in sleep pattern, daytime sleepiness or snoring Eyes: Denies: change in vision, blurry vision, photophobia, eye discomfort or eye discharge ENMT: Denies: throat pain, enlarged tonsils, hoarseness, mouth pain, oral sores, dry mouth, tinnitus, nasal congestion or post nasal drip Card: Denies: chest pain, palpitations, irregular heart rhythm, edema, swelling of feet/ankles, lightheadedness, syncope, pre-syncope, dyspnea on exertion, orthopnea, leg pain with exertion or acrocyanosis Resp: Denies: dyspnea, productive cough, non-productive cough, wheezing, stridor, pain on inspiration, change in phlegm color, hemoptysis or chest congestion GI: Denies: abdominal pain, nausea, vomiting, hematemesis, coffee ground emesis, dysphagia, heartburn, diarrhea, constipation, bloating, GI cramping, change in bowel habits, pain on defecation, hematochezia or melena : Denies: flank pain, difficulty urinating, dysuria, urinary frequency, urinary urgency, urinary hesitancy, urinary dribbling, difficulty starting urination, change in urine stream, nocturia or hematuria Musc: Denies: neck pain, back pain, extremity pain, joint pain, joint swelling, joint redness, joint stiffness or limited range of motion Neuro: Denies: headache(s), numbness in extremities, weakness in extremities, sensory changes, lack of coordination, difficulty walking, frequent falls, dizziness, vertigo, confusion, Slurred speech present, difficulty communicating thoughts or seizure-like activity Psych: Denies: anxiety, depression, mood swings, panic attacks, hopelessness or irritability Endo: Denies: polyuria, polydipsia, tired all the time, cold intolerance, excessive sweating, flushing or heat intolerance Alberto/Lymph: Denies: easy bruising or easy bleeding All/Imm: Denies: tongue swelling, facial swelling or acute wheezing Medications/Allergies Home Medications Medication Instructions Recorded Confirmed Last Taken Type multivitamin with folic acid 1 tab PO DAILY #30 tab 09/22/20 02/15/21 02/14/21 Rx [Thera] aspirin 81 mg tablet,delayed 162 mg PO DAILY tab 10/18/20 02/15/21 02/14/21 History release budesonide-formoterol HFA 160 2 puff INHALATION BID 10/18/20 02/15/21 02/14/21 History mcg-4.5 mcg/actuation aerosol inhaler nitroglycerin 0.4 mg sublingual 0.4 mg SUBLINGUAL Q5M PRN 10/18/20 02/15/21 Unknown History tablet polyethylene glycol 3350 17 17 g PO DAILY PRN 10/18/20 02/15/21 Unknown History gram/dose oral powder ondansetron HCl [Zofran] 4 mg PO Q6H PRN #20 tab 11/13/20 02/15/21 Unknown Rx magnesium 30 mg PO BID #10 tab 02/06/21 02/15/21 02/14/21 Rx folic acid 1 mg PO DAILY #30 tab 02/13/21 02/15/21 02/14/21 Rx potassium chloride 10 meq PO DAILY #7 cap 02/13/21 02/15/21 02/14/21 Rx sod phos di, mono-K phos mono 1 tab PO DAILY #7 tab 02/13/21 02/15/21 02/14/21 Rx [Phosphorous] thiamine HCl (vitamin B1) 100 mg PO DAILY #60 tab 02/13/21 02/15/21 02/14/21 Rx Allergies Allergy/AdvReac Type Severity Reaction Status Date / Time corn Allergy ADR-Nausea Verified 02/15/21 20:41 [place]ia Allergy Uknown Verified 02/15/21 20:41 pear Allergy ALGY-Rash Verified 02/15/21 20:41 Penicillins Allergy ALGY-Difficulty Verified 02/15/21 20:41 Breathing PFSH Acute PFSH: Medical History (Updated 02/16/21 @ 06:38 by Dmitry Boateng MD) Acute dehydration Alcoholism Anal cancer Anxiety Cholelithiasis COPD (chronic obstructive pulmonary disease) CVA (cerebral vascular accident) Depression Dizziness DVT (deep venous thrombosis) Hypertension Myocardial infarction Pancreatitis Status post chemoradiation Vomiting Surgical History History of ankle surgery History of tonsillectomy Hx of cataract extraction Hx of non-cataract eye surgery Status post colonoscopy Status post laparoscopic cholecystectomy (11/13/20) Family History Other Family history non-contributory Social History Alcohol intake: current Alcohol intake frequency: 3 or more drinks per day Household members: family Housing: House History of recent travel: Yes Vitals/I&O/Wt Last Vital Signs Temp 98.3 F 02/16/21 03:53 Pulse 75 02/16/21 03:53 Resp 16 02/16/21 03:53 BP 131/75 02/16/21 03:53 Pulse Ox 98 02/16/21 03:53 02/15/21 02/15/21 02/16/21 14:59 22:59 06:59 Output Total 325 / 325 Balance -325 / -325 Weight last 48 hrs Weight 70.845 kg Weight 65.771 kg Physical Exam Narrative: EXAM NARRATIVE: General: No acute distress, AO x3, milf facial asymmetry which was noted even on discharge exam HEENT: PERRLA, pupils bilaterally equal and reactive Chest: Normal vesicular breath sounds, no added sounds, equal good air entry bilaterally CVS: S1-S2 regular, no murmurs, no tachycardia, no gallops, no rubs Abdomen: Soft, nontender, no organomegaly, bowel sounds present Neuro: No focal deficits, AO x3, power 5/5 in all limbs Data : 02/15/21 16:00 02/15/21 16:00 A&P Assessment and plan (1) Generalized weakness: Patient with PMH and recent admission as noted above presenting with generalized weakness and frequent falls. was reommended NH placement last admission but had declined the same. His return to home does not appear to be safe for him at this time, therefore will require some disposition planning. Status: Acute (2) Alcoholism: continue folate, thiamine CIWA prortocol to monitor for alcohol withdrawal Status: Acute Attestations Medical Necessity Statement*: less than 48 hr stay anticipated Coding Level of Care Code Acute Mine Manager for [facility] Fwd Diagnoses Generalized weakness R53.1 Alcoholism F10.20
[2021-02-15] MEDS: potassium chloride oral liq 20 mEq/15 mL UDC 60 MEQ PO (18:46)
[2021-02-15] MEDS: magnesium oxide 400 mg tablet 800 MG PO (18:46)
[2021-02-15 19:21] LABS: Troponin 5 2HR 15.61 ng/L (0-15)
--- NOTE | 2021-02-15 19:22 | PC.NURSE ---
Pt. states that she does not know why she has the mask on, because she started feeling better along time ago. I have explained to the patient that the bipap is helping push oxygen down into her lungs to help make a good gas exchange.
[2021-02-15 19:23] LABS: Troponin 5 2HR Delta -1.39 ABS# (0-10)
[2021-02-15] MEDS: D5-NS 0.45% + KCL 20 mEq 20 MEQ/1,000 ML BAG 100 MEQ IV (20:56)
--- NOTE | 2021-02-15 21:59 | ECG_ITS ---
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 Measurements Intervals [place] Rate: 67 P: 63 RI: 124 QRS: 12 QRSD: 82 T: 66 QT: 446 QTc: 474 Interpretive Statements SINUS RHYTHM PROLONGED QT INTERVAL Compared to ECG 02/15/2021 17:12:41 Sinus bradycardia no longer present T-wave abnormality no longer present Electronically Signed On 02-16-2021 16:16:04 ELECTRICIAN MAINTENANCE by Kylah Rodriguez M.D. [id number]
[2021-02-15 22:43] LABS: Troponin 5 6HR 15.61 ng/L (0-15)
[2021-02-15 22:47] LABS: Troponin 5 6HR Delta -1.39 ng/L (0-12)
[2021-02-16 00:12] LABS: Alcohol Level < 10 mg/dL (0-10); Iron 27 ug/dL (59-158); Percent Saturation 16.9 % (20-50); Total Iron Binding Capacity 159 mcg/dl; Unsaturated Iron Binding 132 ug/dL (112-347)
[2021-02-16 00:27] LABS: Folate Level 11.9 ng/mL (4.5-32.2)
[2021-02-16 00:28] LABS: Vitamin B12 1690 pg/mL (232-1245)
[2021-02-16 03:53] VITALS: BP 131/75; PULSE 75; RESP 16; TEMP 36.8; O2SAT 98
[2021-02-16 04:41] LABS: Add Urine Microscopic? NO; Bilirubin Urine Neg (Negative); Blood Urine Neg (Negative); Charge for UA Resulting for Rev; Glucose Urine UA Norm (Normal); Ketones Urine Negative (Negative); Leukocyte Esterase Urine Negative (Negative); Nitrate Urine Negative (Negative); Protein Urine Neg (Negative); Urine Appearance Clear (CLEAR); Urine Color Yellow (Yellow); Urobilinogen Urine Neg (Negative); pH Urine 6.5 (5-7)
--- NOTE | 2021-02-16 05:49 | DCPLANNER ---
manager talent management was informed by TITA Moyer, in NPU that patients information had been sent to [facility] for review and was told that patient would be accepted by the facility. That if patient returned to ED to check with [facility] to see if they still accepted patient. Patient did return to ED, case management social worker called [facility] at , spoke with Gianna, was told that facility would accept patient tomorrow, 02.16.21, and that they would be able to come to the hospital and pick patient up. manager talent management spoke with Helene, supervisor title, and informed her of this.
[2021-02-16 06:04] LABS: Basophils % 0.1 %; Eosinophils # 0.1 10^3/uL (0.0-0.8); Eosinophils % 1.1 %; Hematocrit 30.9 % (42.0-52.0); Hemoglobin 10.1 g/dL (11.7-16.6); Lymphocytes # 0.8 10^3/uL (0.8-4.8); Lymphocytes % 7.4 %; Mean Corpuscular HGB Conc 32.7 g/dL (30.0-36.0); Mean Corpuscular Hemoglobin 34.5 pg (28.0-34.0); Mean Corpuscular Volume 105.5 fl (80-94); Monocytes % 9.6 %; Neutrophils # 8.19 10^3/uL (1.8-7.7); Neutrophils % 80.7 %; Nucleated Red Blood Cells % 0 %; Platelet Count 160 10^3/cmm (130-400); Red Blood Count 2.93 10^6/uL (4.1-5.3); Red Cell Distribution Width 16.3 % (12.1-15.1); White Blood Count 10.1 10^3/uL (4.0-10.0)
[2021-02-16 06:23] LABS: Magnesium 1.6 mg/dL (1.7-2.3)
[2021-02-16] MEDS: D5-NS 0.45% + KCL 20 mEq 20 MEQ/1,000 ML BAG 100 MEQ IV (06:36)
[2021-02-16 07:49] LABS: Slide Review Slide Review Perform
[2021-02-16 08:00] VITALS: BP 125/68; PULSE 63; RESP 17; TEMP 36.6; O2SAT 93
[2021-02-16] MEDS: folic acid 1 mg Tablet PO (08:44)
[2021-02-16] MEDS: aspirin 81 mg EC Tablet PO (08:44)
[2021-02-16] MEDS: amoxicillin-clav 875-125 mg Tablet 1 TAB PO ×2 (08:44→17:18)
[2021-02-16] MEDS: multivitamin therapeutic Tablet 1 TAB PO (08:44)
[2021-02-16] MEDS: thiamine 100 mg Tablet PO (08:44)
[2021-02-16] MEDS: magnesium oxide 400 mg tablet PO ×2 (08:44→17:19)
[2021-02-16] MEDS: phosphorus 250 mg Tablet PO (08:44)
[2021-02-16] MEDS: potassium chloride ER 10 mEq Tablet PO (08:44)
[2021-02-16 12:00] VITALS: BP 116/75; PULSE 94; RESP 18; TEMP 36.7; O2SAT 94
--- NOTE | 2021-02-16 13:45 | PC.CHAP ---
Pastoral Care Encounter/Spiritual Assessment Type of Contact [xx] Declined special assemblies supervisor visit [] Patient/Family/Request visit [] Outpatient visit [] Follow-up visit [] Physician referral [] Code/Alert [xx] Routine visit [] Staff referral [] Actively dying [] Patient sleeping [] Family support [] [] Out of room [] Palliative care [] [] Receiving care in room [] Pre-surgical visit [] Trauma [] Long length of stay [] ICU visit [] Other: Relational/Emotional Strength [] Patient feels connected with others/family/visitors/staff [] Distress [] Loneliness/isolation [] Abandonment Spirituality of Patient [] Person of Christelle [] Attends Rastafarian of their Christelle [] Believes in Prayer [] Reads Bible or Pentecostal materials [] There are Spiritual issues to be addressed Junior Accountant Interventions [] Prayer [xx] Active listening [x] Non-anxious presence [] Spiritual/emotional support [] Crisis/trauma care [] Spiritual counseling [] Bereavement support [] Provided bereavement packet [] Provided Bible/devotional materials [] Provided toy/stuffed animal, coloring book to patient or family member [] Provided Communion [] Anointing/[place] [] Salvation [xx] Completed spiritual assessment [] Other: Impact on Illness or Injury [] Angry [] Fearful [] Anxious [] Often cries [] Exhaustion [] Unable to work [] Unable to attend sikh [] Unable to walk/stand [] Unable to read [] Unable to drive [] Unable to eat/drink [] Unable to sleep [] Unable to be with family [] Patient intubated [] Other: Summary Patient did not want prayer. He did want special assemblies supervisor to get a nurse to stop the beeping of a meter on a pole that he found aggravating and annoying. Junior Accountant complied and nurse took care of it almost immediately. Time spent with patient 3 minutes
[2021-02-16 15:23] LABS: SARS Covid-2 Antigen Negative (Negative)
--- NOTE | 2021-02-16 15:25 | PC.NURSE ---
Report called [facility]. KAZ Yates took report.
[2021-02-16 16:00] VITALS: BP 125/65; PULSE 90; RESP 18; TEMP 36.8; O2SAT 95
[2021-02-16 20:00] VITALS: BP 128/78; PULSE 66; RESP 17; TEMP 36.6; O2SAT 94
[2021-02-17] VITALS: BP 132/68; PULSE 61; RESP 18; TEMP 37.1; O2SAT 93
[2021-02-17 04:00] VITALS: BP 136/74; PULSE 66; RESP 17; TEMP 36.6; O2SAT 93
== END 2021-02-17 07:45 | disposition skilled nursing facility (03) ==
LOC: ER 19:45 → OPMS 19:54 → MEDSURG 20:12
PROVIDERS: Emergency Provider Family Medicine; PCP Family Medicine; Visit Provider Student in an Organized Health Care Education/Training Program
DX: E87.6 Hypokalemia (principal); E83.42 Hypomagnesemia; R53.1 Weakness; R06.00 Dyspnea, unspecified; R05.9 Cough, unspecified; J98.11 Atelectasis; R00.1 Bradycardia, unspecified; R94.31 Abnormal electrocardiogram [ECG] [EKG]; F10.20 Alcohol dependence, uncomplicated
CPT/HCPCS: 36415; 71045; 80053; 80307; 81003; 82550; 82607; 82746; 83540; 83550; 83735; 84484; 85025; 87426; 93005; 96372; 97161; J3411

== ENCOUNTER 2021-11-12 12:34 | Outpatient (CLI) | payer MEDICARE, MEDICAID, SELFPAY ==
--- NOTE | 2021-11-12 12:58 | CT_ITS ---
WS: [id number] LDCT LUNG CANCER SCREENING TECHNIQUE: Noncontrast CT of the chest with coronal and sagittal reformatted images. CLINICAL INFORMATION: NICOTINE DEPENDENCE, CIGARETTES COMPARISON: CT 11/09/20 DLP: 72.89 mGy.cm DIvol: Mean CTDIvol: 1.60 (mGy) All CT scans at [facility] use at least one of these dose optimization techniques: automat ed exposure control; mA and/or kV adjustment per patient size (includes targeted exams where dose is matched to clinical indication); or iterative reconstruction. FINDINGS: Moderate chronic emphysematous changes. No suspicious pulmonary parenchymal abnormalities. Subsegment al atelectasis in the lung bases medially with bronchiectasis. No mediastinal or hilar lymphadenopath y. Moderate thoracic kyphosis unchanged. Hypertrophic changes thoracic spine. Chronic anterior wedging i n the lower thoracic spine. Chronic appearing compression deformities in the upper thoracic spine sim ilar to previous. CT/CT lung screening [id number] IMPRESSION: LUNG-RADS: 1-Negative FOLLOW UP: 12 Month: Continue annual screening with LDCT
== END 2021-11-12 12:35 | disposition home or self-care (01) ==
PROVIDERS: PCP Family Medicine; Visit Provider Family Medicine
DX: Z12.2 Encounter for screening for malignant neoplasm of respiratory organs (principal); F17.210 Nicotine dependence, cigarettes, uncomplicated
CPT/HCPCS: 71271

== ENCOUNTER 2022-02-09 18:05 | Emergency (ER) | payer MEDICARE, MEDICAID, SELFPAY ==
[2022-02-09 18:10] VITALS: BP 141/79; PULSE 65; RESP 16; TEMP 36.6; O2SAT 97; BMI 18.3
--- NOTE | 2022-02-09 18:21 | ECG_ITS ---
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 Measurements Intervals [place] Rate: 52 P: 91 WA: 153 QRS: -9 QRSD: 94 T: 51 QT: 498 QTc: 464 Interpretive Statements SINUS BRADYCARDIA NONSPECIFIC T-WAVE ABNORMALITY PROLONGED QT INTERVAL Compared to ECG 02/15/2021 22:48:28 T-wave abnormality now present Sinus rhythm no longer present Electronically Signed On 02-10-2022 22:04:52 DIRECTOR PAYER by Ashwin Marie M.D. [id number] f
--- NOTE | 2022-02-09 18:29 | XRR_ITS ---
PROCEDURE INFORMATION: Exam: XR Chest Exam date and time: 02/09/2022 7:48 PM Age: 71 years old Clinical indication: Pain; Chest pressure; Additional info: Cp TECHNIQUE: Imaging protocol: Radiologic exam of the chest. Views: 1 view. COMPARISON: CR XR chest 1V portable [id number] 02/15/2021 4:12 PM FINDINGS: Lungs: There is no evidence of focal pulmonary consolidation. Pleural spaces: No pleural effusion or pneumothorax. Heart/Mediastinum: The heart is top-normal in size. Bones/joints: No acute fracture is identified. Old healed fractures of the left 4th and 5th ribs remain unchanged. There are some chronic fractures of the right 2nd, 3rd and 4th ribs that are suboptimally visualized due to overlapping bony structures. There is chronic healed fracture deformity of the left humeral neck and head. XR/XR chest 1V portable [id number] IMPRESSION: No acute findings.
--- NOTE | 2022-02-09 18:34 | ED_ITS ---
HPI - General Adult General: Chief complaint: General Medical Stated complaint: ETOH; FALL Time Seen by Provider: 02/09/22 18:10 Source: patient, EMS and other (Roommate) Mode of arrival: EMS Limitations: no limitations History of Present Illness: This patient was transported by EMS from his home. He apparently has been drinking today and had a fall and EMS was initially called with lift assistance. When they arrived his roommate insisted he should come to the hospital and be evaluated. The patient states that he does not know how many drinks he is had today. He states he had had heart attacks in the past but has not had any chest pain today he denies any injury from his fall. Associated symptoms: Deny chest pain, dyspnea, headache(s), nausea, rash, pal pitations, syncope or vomiting Review of Systems Const: Denies: fever(s) or chills ENMT: Denies: throat pain, odynophagia, nasal discharge or nasal congestion Card: Denies: chest pain, palpitations, irregular heart rhythm, syncope or pre-syncope Resp: Denies: dyspnea, productive cough or non-productive cough GI: Denies: abdominal pain, nausea, vomiting or hematemesis : Denies: flank pain, difficulty urinating, dysuria or urinary frequency Musc: Denies: neck pain, back pain, extremity pain or extremity swelling Skin/Breast: Denies: rash Neuro: Denies: headache(s), numbness in extremities, weakness in extremities, dizziness or vertigo Psych: Denies: anxiety, auditory hallucinations, tactile hallucinations, suicidal ideation or homicidal ideation Endo: Denies: polyuria or polydipsia PFSH ED PFSH: Medical History Acute dehydration Alcoholism Anal cancer Anxiety Cholelithiasis COPD (chronic obstructive pulmonary disease) CVA (cerebral vascular accident) Depression Dizziness DVT (deep venous thrombosis) Hypertension Hypomagnesemia Myocardial infarction Pancreatitis Status post chemoradiation Vomiting Surgical History History of ankle surgery History of tonsillectomy Hx of cataract extraction Hx of non-cataract eye surgery Status post colonoscopy Status post laparoscopic cholecystectomy (11/13/20) Family History Other Family history non-contributory Social History Alcohol intake: current Alcohol intake frequency: 3 or more drinks per day Household members: family Housing: House History of recent travel: Yes Physical Exam Narrative: EXAM NARRATIVE: The patient is alert but clearly intoxicated with some slurring his speech. He is cooperative and will answer questions in a very loquacious drawnout response but ultimately getting to a reasonable answer. Const: COMMON NORMALS: alert GENERAL APPEARANCE: cooperative, disheveled and appears older than stated age NUTRITIONAL APPEARANCE: thin ORIENTATION/CONSCIOUSNESS: Yes awake, Yes oriented to person and Yes oriented to place HENMT: COMMON NORMALS: normocephalic, atraumatic, Normal nasal mucous membranes and turbinates present and moist oral mucous membranes HEAD & SCALP: normocephalic and atraumatic NOSE: Normal nasal mucous membranes and turbinates present TEETH & GINGIVA: Yes poor dentition Eye: OTHER: Eyes are remarkable and he has corneal opacity left eye. EOMI is full OU. His right eye is clear sclera with a reactive pupil. Neck/C-Spine: COMMON NORMALS: full ROM, no JVD, Thyroid normal and No carotid bruits THYROID: Thyroid normal Chest: COMMONS NORMALS: normal inspection of the chest and normal palpation of entire chest wall Resp: COMMON NORMALS: normal respiratory effort, No use of accessory muscles and clear to auscultation bilaterally EFFORT & INSPECTION: Yes able to speak in complete sentences AUSCULTATION: clear to auscultation bilaterally Cardio: COMMON NORMALS: no JVD, regular rate, regular rhythm, No murmurs present (Cardio) and Peripheral pulses 2+ throughout RATE: regular rate RHYTHM: regular rhythm PERIPHERAL PULSES: Peripheral pulses 2+ throughout GI: COMMON NORMALS: Normal to inspection, nondistended, normoactive bowel sounds present, Soft to palpation and non-tender PALPATION: Yes Soft to palpation : COMMON NORMALS: Yes no CVA tenderness BLADDER/KIDNEY EXAM: Yes no CVA tenderness Back/Pelvis: COMMON NORMALS: no CVA tenderness, thoracic and lumbar spine normal to inspection, no thoracic nor lumbar tenderness and thoraco-lumbar ROM normal Extremity: COMMON NORMALS: normal to inspection, full ROM, capillary refill normal, no calf tenderness and no pedal edema Neuro: COMMON NORMALS: no focal motor deficits and no sensory deficits noted SENSORIUM/ORIENTATION: Yes alert, Yes oriented to person and Yes oriented to place SPEECH: speech normal MOTOR EXAM: 5/5 motor strength present throughout Psych: COMMON NORMALS: Normal thought process present and cooperative APPEARANCE: Yes unkempt ACTIVITY/MOTOR BEHAVIOR: Yes appropriate eye contact SPEECH: Yes excessive MOOD & AFFECT: Yes elevated mood THOUGHT PROCESS: Normal thought process present THOUGHT CONTENT: No Suicidality present, No Homicidality present and No Hallucination(s) present ATTENTION/CONCENTRATION: Yes attention grossly intact MEMORY/COGNITION: Yes memory grossly intact Skin: COMMON NORMALS: no rashes or lesions noted, no wounds, no jaundice and no petechiae GENERAL SKIN EXAM: no rashes or lesions noted Course Reevaluation(s): Reevaluation #1: The patient continues to be clinically stable. He and his roommate are in a d ispute about his alcohol use. His roommate is insisting that he needs inpatient psychiatric treatment. The patient has denied any thoughts of self-harm and continues to do so. While his QUIN is elevated he is lucid and logical (albeit has self-destructive behavior). He certainly does have a issue with chronic alcohol use. His magnesium was repleted in the emergency department. His serial troponin as well as serial EKGs are reassuring. Time: 21:19 Reevaluation #2: The patient remains clinically stable. He is received IV hydration thiamine his magnesium has been repleted. He remains clinically stable. No new findings on clinical examination. He remains adamant that he is not suicidal and has no thoughts of self-harm. I have placed a consult into case management to see if they can provide assistance regarding behavioral health intake and evaluation. His roommate lands on seeing if he can get him into a treatment center this coming week. He is states he is dealt with his alcohol use for many years and has reached a breaking point. Patient is being discharged with his roommate in clinically stable condition. He was offered Librium but he states that he did not want to take that kind of medication. We discussed return precautions in detail. Time: 21:42 Vital Signs: Vital signs: Vital Signs Temperature 97.8 F 02/09/22 18:10 Pulse Rate 62 02/09/22 18:57 Respiratory Rate 23 H 02/09/22 18:57 Blood Pressure 106/79 02/09/22 18:57 Pulse Oximetry 100 02/09/22 18:57 Oxygen Delivery Me thod 11/12/22 18:57 MDM - General Adult Medical Decision Making Patient with a history of chronic alcohol abuse presented to the emergency depar tment via EMS. There was some question whether he was having chest pains but this was unclear whether this was the patient's complaint or his roommate reducing these symptoms to help get him to the hospital. Patient was found to be medically stable and lucid albeit with a elevated blood alcohol level. He remained clinically stable and adamant that he was not harboring any thoughts of self-harm or plans to do so. His roommate who has previously been an enabler of his alcohol use has decided that he is going to enlist the aid of treatment centers and/or a program in an attempt to get him clean. The patient's magnesium was repleted while in the emergency department and serial troponins chest x-ray and other ancillary studies were reassuring. Patient is clinically stable at this time to be discharged with his roommate with return precautions discussed. We have also placed a consult into case management. Lab Data : 02/09/22 18:34 02/09/22 18:34 Radiology Impressions Chest X-Ray 02/09/22 18:29 IMPRESSION: No acute findings. Laboratory Results WBC 7.9 10^3/uL (4.0-10.0) 02/09/22 18:34 RBC 3.94 10^6/uL (4.1-5.3) L 02/09/22 18:34 Hgb 13.7 g/dL (11.7-16.6) 02/09/22 18:34 Hct 39.8 % (42.0-52.0) L 02/09/22 18:34 MCV 101.0 fl (80-94) H 02/09/22 18:34 MCH 34.8 pg (28.0-34.0) H 02/09/22 18:34 MCHC 34.4 g/dL (30.0-36.0) 02/09/22 18:34 RDW 14.6 % (12.1-15.1) 02/09/22 18:34 Plt Count 194 10^3/cmm (130-400) 02/09/22 18:34 MPV 10.1 fL (7.4-10.4) 02/09/22 18:34 Neut % (Auto) 56.0 % 02/09/22 18:34 Lymph % (Auto) 27.9 % 02/09/22 18:34 [place] % (Auto) 12.0 % 02/09/22 18:34 Eos % (Auto) 2.9 % 02/09/22 18:34 Baso % (Auto) 0.6 % 02/09/22 18:34 Neut # (Auto) 4.40 10^3/uL (1.8-7.7) 02/09/22 18:34 Lymph # (Auto) 2.2 10^3/uL (0.8-4.8) 02/09/22 18:34 [place] # (Auto) 0.9 10^3/uL (0.2-0.9) 02/09/22 18:34 Eos # (Auto) 0.2 10^3/uL (0.0-0.8) 02/09/22 18:34 Baso # (Auto) 0.1 10^3/uL (0.0-0.1) 02/09/22 18:34 Nucleated RBC % (auto) 0 % 02/09/22 18:34 Nucleated RBCs # 0.0 /100WBC 02/09/22 18:34 Sodium 132 mmol/L (136-145) L 02/09/22 18:34 Potassium 4.1 mmol/L (3.5-5.1) 02/09/22 18:34 Chloride 95 mmol/L (98-107) L 02/09/22 18:34 Carbon Dioxide 23 mmol/L (22-29) 02/09/22 18:34 Anion Gap 18.1 (5-19) 02/09/22 18:34 BUN 14 mg/dL (8-23) 02/09/22 18:34 Creatinine 0.6 mg/dL (0.7-1.2) L 02/09/22 18:34 GFR Calculation 133.2 mL/min (90-130) H 02/09/22 18:34 Glucose 85 mg/dL (65-115) 02/09/22 18:34 POC Glucose 82 mg/dL (70-110) 02/09/22 19:00 Calculated Osmolality 274 mOsm/kg (285-295) L 02/09/22 18:34 Calcium 9.2 mg/dL (8.5-10.5) 02/09/22 18:34 Magnesium 1.6 mg/dL (1.7-2.3) L 02/09/22 18:34 Total Bilirubin 0.4 mg/dL (0.15-1.2) 02/09/22 18:34 AST 21 U/L (0-40) 02/09/22 18:34 ALT 8 U/L (0-41) 02/09/22 18:34 Alkaline Phosphatase 73 U/L (40-130) 02/09/22 18:34 Troponin T Baseline 12 ng/L (0-15) 02/09/22 18:34 Troponin T 120 Minute 14.63 ng/L (0-15) 02/09/22 20:24 Delta Troponin T 2.63 ABS# (0-10) 02/09/22 20:24 Total Protein 6.6 g/dL (6.6-8.7) 02/09/22 18:34 Albumin 3.9 g/dL (3.5-5.2) 02/09/22 18:34 Globulin 2.7 g/dL (1.3-4.6) 02/09/22 18:34 Ethyl Alcohol 311 mg/dL (0-10) H* 02/09/22 18:34 EKG Data EKG 1: I personally reviewed and interpreted this EKG as follows: Interpretation: Initial resting EKG reveals a ventricular rate of 52 bpm consistent with sinus bradycardia. Normal [place] interval normal QRS duration. QTc intervals normal. [place] are normal. No acute ST-T wave changes noted. V4 has baseline disruption but this should not be interpreted as a nonspecific ST-T wave change. Computer generated interpretation: Chest X-Ray 02/09/22 18:29 IMPRESSION: No acute findings. EKG 2: I personally reviewed and interpreted this EKG as follows: Interpretation: Second EKG this visit reveals ventricular rate of 50 bpm. Normal [place] interval normal QRS duration normal QTc interval. Normal axis. Consistent with sinus bradycardia without any acute ST-T wave changes. Computer generated interpretation: Chest X-Ray 02/09/22 18:29 IMPRESSION: No acute findings. Discharge Plan Discharge Patient Disposition: Home Clinical Impression: Alcohol abuse, Hypomagnesemia Condition: Stable Prescriptions: No Action aspirin [Adult Aspirin Regimen] 81 mg tablet,delayed release (DR/EC) 162 mg PO DAILY polyethylene glycol 3350 [Miralax] 17 gram/dose powder 17 g PO DAILY PRN (Reason: Constipation) budesonide-formoterol [Symbicort] 160-4.5 mcg/actuation HFA aerosol inhaler 2 puff inhalation BID nitroglycerin [Nitrostat] 0.4 mg tablet, sublingual 0.4 mg sublingual Q5M PRN (Reason: Chest Pain) Rx Instructions: do not exceed 3 doses per episode multivitamin with folic acid [Thera] 400 mcg Tablet 1 tab PO DAILY Qty: 30 0RF ondansetron HCl [Zofran] 4 mg tablet 4 mg PO Q6H PRN (Reason: nausea and vomiting) Qty: 20 0RF magnesium 30 mg tablet 30 mg PO BID Qty: 10 0RF Phosphorous 250 mg tablet 1 tab PO DAILY Qty: 7 0RF folic acid 1 mg Tablet 1 mg PO DAILY Qty: 30 3RF thiamine HCl (vitamin B1) 100 mg tablet 100 mg PO DAILY Qty: 60 2RF potassium chloride 10 mEq capsule, extended release 10 meq PO DAILY Qty: 7 0RF Discharge Orders: Discharge ED (Routine); Ordered 02/09/22 Ordered By: Hoang Krishna Referrals: Karla Ruff DO [Primary Care Provider] - Discharge Diet: Advance as tolerated Discharge Activity: Increase activity as tolerated Patient Instructions: Abuse of Alcohol (ED), Opioid Safety, Pain Management Activity Restrictions/Additional Instructions: Do not drink alcohol it is self-destructive behavior. Case management will be contacting you this coming week to discuss mental health intake and any other p otential programs that might be helpful to you. If at anytime you develop any concerning symptoms return to this emergency department immediately. Coding Level of Care Code ED Commissioner [employer] for Katrin Fwteresita Exam Comprehensive
--- NOTE | 2022-02-09 18:39 | PC.NURSE ---
pt arrives via EMS. pt reports he is here because his roommate is afraid the pt is having a heart attack. pt reports substernal chest pain. denies nausea or dyspnea. pt is oriented to person, place, and time. denies SI/HI. smell of EtOH. pt reports he has had 4 glasses of vodka with orange juice. states he drinks daily. respirations even and unlabored. lung sounds clear bilat. bowel sounds present.
[2022-02-09 18:40] LABS: Basophils # 0.1 10^3/uL (0.0-0.1); Basophils % 0.6 %; Eosinophils # 0.2 10^3/uL (0.0-0.8); Eosinophils % 2.9 %; Hematocrit 39.8 % (42.0-52.0); Hemoglobin 13.7 g/dL (11.7-16.6); Lymphocytes # 2.2 10^3/uL (0.8-4.8); Lymphocytes % 27.9 %; Mean Corpuscular HGB Conc 34.4 g/dL (30.0-36.0); Mean Corpuscular Hemoglobin 34.8 pg (28.0-34.0); Mean Platelet Volume 10.1 fL (7.4-10.4); Monocytes # 0.9 10^3/uL (0.2-0.9); Nucleated Red Blood Cells % 0 %; Platelet Count 194 10^3/cmm (130-400); Red Blood Count 3.94 10^6/uL (4.1-5.3); Red Cell Distribution Width 14.6 % (12.1-15.1); White Blood Count 7.9 10^3/uL (4.0-10.0)
[2022-02-09] MEDS: sodium chloride 0.9% 1,000 ML 999 ML IV (18:50)
[2022-02-09 18:57] VITALS: BP 106/79; PULSE 62; RESP 23; O2SAT 100
[2022-02-09 18:58] LABS: Alanine Aminotransferase 8 U/L (0-41); Albumin Level 3.9 g/dL (3.5-5.2); Alkaline Phosphatase 73 U/L (40-130); Aspartate Amino Transferase 21 U/L (0-40); Blood Urea Nitrogen 14 mg/dL (8-23); Calcium 9.2 mg/dL (8.5-10.5); Carbon Dioxide 23 mmol/L (22-29); Chloride 95 mmol/L (98-107); Globulin 2.7 g/dL (1.3-4.6); Glomerular Filtration Rate 133.2 mL/min (90-130); Glucose 85 mg/dL (65-115); Osmolality Calculated 274 mOsm/kg (285-295); Sodium 132 mmol/L (136-145); Total Bilirubin 0.4 mg/dL (0.15-1.2); Total Protein 6.6 g/dL (6.6-8.7)
[2022-02-09 18:59] LABS: Troponin(5th) Baseline 12 ng/L (0-15)
[2022-02-09 19:00] LABS: Anion Gap 18.1 (5-19); Magnesium 1.6 mg/dL (1.7-2.3); Potassium 4.1 mmol/L (3.5-5.1)
[2022-02-09 19:01] LABS: Alcohol Level 311 mg/dL (0-10)
[2022-02-09 19:05] LABS: Glucose Point of Care 82 mg/dL (70-110)
[2022-02-09] MEDS: magnesium sulfate premix 2 GM/50 ML PIGGYBACK IV (19:58)
[2022-02-09 20:57] LABS: Troponin 5 2HR 14.63 ng/L (0-15)
[2022-02-09 21:02] LABS: Troponin 5 2HR Delta 2.63 ABS# (0-10)
--- NOTE | 2022-02-09 21:17 | ECG_ITS ---
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 Measurements Intervals [place] Rate: 50 P: 69 DC: 162 QRS: -8 QRSD: 89 T: 48 QT: 507 QTc: 464 Interpretive Statements SINUS BRADYCARDIA PROLONGED QT INTERVAL Compared to ECG 02/09/2022 18:21:41 T-wave abnormality no longer present Electronically Signed On 02-10-2022 22:23:35 BUILDING MAINTENANCE SUPERINTENDENT by Ashwin Marie M.D. [id number]
--- NOTE | 2022-02-11 08:01 | PC.SOCIAL ---
Addendum entered by Gogo Bravo 03/20/22 13:57: evs manager received the following message from [facility] regarding follow up appointment: emailed Angy Parisi completed item. Original Note: [facility] Referral Consult received for [facility] referral. Referral sent to [facility] at this time, clinic will contact patient with appointment date/time.
== END 2022-02-09 22:11 | disposition home or self-care (01) ==
PROVIDERS: Emergency Provider Emergency Medicine; PCP Family Medicine
DX: F10.129 Alcohol abuse with intoxication, unspecified (principal); Y90.8 Blood alcohol level of 240 mg/100 ml or more; E83.42 Hypomagnesemia
CPT/HCPCS: 36416; 71045; 80053; 80307; 82962; 83735; 84484; 85025; 93005; 96365; 96366; 96375; 99285; J3411; J3475; J7030

== ENCOUNTER 2022-02-12 16:35 | Outpatient (CLI) | payer MEDICARE, MEDICAID, SELFPAY ==
--- NOTE | 2022-02-12 16:49 | XR_ITS ---
WS: [id number] Exam: XR foot RT min 3V* [id number] Date/Time of Exam: 02/12/2022 4:50 PM Reason For Exam: FOOT PAIN, RIGHT There is a nondisplaced fracture of the distal phalanx of the great toe. No other acute fractures are seen. Old fracture deformity of the proximal phalanx of the great toe. Moderate bunion deformity. Se cond through the fifth hammertoes. Degenerative changes in the IP joints and midfoot joints. No radio paque soft tissue bodies are seen. XR/XR foot RT min 3V* [id number] IMPRESSION: 1. Nondisplaced fracture of the distal phalanx of the great toe. Associated sof t tissue swelling. 2. Old fracture deformity of the proximal phalanx of the first toe. 3. Degenerative changes and hammertoe deformities as detailed above.
== END 2022-02-12 16:36 | disposition home or self-care (01) ==
LOC: RAD 16:39
PROVIDERS: PCP Family Medicine; Visit Provider Family Medicine
DX: S92.424A Nondisplaced fracture of distal phalanx of right great toe, initial encounter for closed fracture (principal); X58.XXXA Exposure to other specified factors, initial encounter; M19.071 Primary osteoarthritis, right ankle and foot; M20.41 Other hammer toe(s) (acquired), right foot
CPT/HCPCS: 73630

== ENCOUNTER 2022-03-28 18:45 | Inpatient (IN) | payer MEDICARE, MEDICAID, SELFPAY ==
[2022-03-28 18:49] VITALS: BP 139/81; PULSE 98; RESP 20; TEMP 36.3; O2SAT 97; BMI 19.1
--- NOTE | 2022-03-28 18:49 | XRR_ITS ---
PROCEDURE INFORMATION: Exam: XR Chest Exam date and time: 03/28/2022 7:04 PM Age: 71 years old Clinical indication: Other: Weakness TECHNIQUE: Imaging protocol: Radiologic exam of the chest. Views: 1 view. COMPARISON: CR (CHEST, ) 02/09/2022 7:48 PM FINDINGS: Lungs: Advanced COPD. No consolidation. Small areas of lung base atelectasis or scarring. Pleural spaces: Unremarkable. No pleural effusion. A few subtle left upper lateral chest lucencies. Artifacts are favored. Heart/Mediastinum: The heart is upper limits normal size. Bones/joints: Multiple old bilateral rib deformities. Old right clavicle deformity. Old right humeral neck deformity. XR/XR chest 1V portable [id number] IMPRESSION: 1. No definite acute finding. 2. A few left upper lateral chest lucencies are probably due to scarring and/or skin folds. Advise inspiration/expiration views chest work this up if the patient has any dyspnea. Provided history is merely weakness.
--- NOTE | 2022-03-28 18:59 | ECG_ITS ---
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 Measurements Intervals [place] Rate: 48 P: 67 VA: 150 QRS: 38 QRSD: 86 T: 65 QT: 504 QTc: 451 Interpretive Statements SINUS BRADYCARDIA PROLONGED QT INTERVAL Compared to ECG 02/09/2022 21:17:15 No significant changes Electronically Signed On 03-28-2022 21:16:11 UI APPLICATION DEVELOPER by Ashwin Marie M.D. [id number]
--- NOTE | 2022-03-28 19:01 | ED_ITS ---
HPI - Weakness General: Chief complaint: Weakness Stated complaint: FATIGUE/ NOT EATING/ WANTING TO SLEEP Time Seen by Provider: 03/28/22 18:49 Source: patient and EMS Mode of arrival: EMS Limitations: no limitations History of Present Illness: 71-year-old male has a history of alcoholism along with colon cancer his last chemo treatment was 3 years ago he states that he has just been feeling very tired and weak. He states he been sleeping more normally states he has not been eating or drinking he denies any pain he is awake and alert he is answering all my questions here appropriately. Associated symptoms: Denies chest pain, dysuria, easy bruising, headache(s), nausea or vomiting Review of Systems Const: Reports: fatigue and malaise Eyes: Denies: blurry vision or eye discomfort ENMT: Denies: throat pain or dental pain Card: Denies: chest pain Resp: Denies: dyspnea GI: Denies: abdominal pain, nausea, vomiting or diarrhea : Denies: dysuria Musc: Denies: neck pain or back pain Skin/Breast: Denies: rash Neuro: Denies: headache(s) Psych: Denies: depression Alberto/Lymph: Denies: easy bruising All/Imm: Denies: urticaria PFSH ED PFSH: Medical History Acute dehydration Alcoholism Anal cancer Anxiety Cholelithiasis COPD (chronic obstructive pulmonary disease) CVA (cerebral vascular accident) Depression Dizziness DVT (deep venous thrombosis) Hypertension Hypomagnesemia Myocardial infarction Pancreatitis Status post chemoradiation Vomiting Surgical History History of ankle surgery History of tonsillectomy Hx of cataract extraction Hx of non-cataract eye surgery Status post colonoscopy Status post laparoscopic cholecystectomy (11/13/20) Family History Other Family history non-contributory Social History Alcohol intake: current Alcohol intake frequency: 3 or more drinks per day Household members: family Housing: House History of recent travel: Yes Physical Exam Const: COMMON NORMALS: no acute distress, patient oriented x3 and healthy appearing HENMT: COMMON NORMALS: normocephalic and atraumatic HEAD & SCALP: normocephalic and atraumatic Eye: COMMON NORMALS: Equal, round and reactive pupils present and EOMs intact bilaterally PUPIL: Yes Equal, round and reactive pupils present Neck/C-Spine: COMMON NORMALS: full ROM and supple Chest: COMMONS NORMALS: normal inspection of the chest and normal palpation of entire chest wall Resp: COMMON NORMALS: normal respiratory effort, No retractions, No use of accessory muscles and clear to auscultation bilaterally AUSCULTATION: clear to auscultation bilaterally Cardio: COMMON NORMALS: regular rate, regular rhythm and No murmurs present (Cardio) RATE: regular rate RHYTHM: regular rhythm GI: COMMON NORMALS: Normal to inspection, nondistended, normoactive bowel so unds present, Soft to palpation, non-tender and no masses PALPATION: Yes Soft to palpation Extremity: COMMON NORMALS: normal to inspection and full ROM Neuro: COMMON NORMALS: patient oriented x3, moves all extremities and no focal motor deficits Psych: COMMON NORMALS: mental status grossly normal, Normal thought process present and cooperative THOUGHT PROCESS: Normal thought process present Skin: COMMON NORMALS: no rashes or lesions noted and no wounds GENERAL SKIN EXAM: no rashes or lesions noted Course Vital Signs: Vital signs: Vital Signs Temperature 97.3 F L 03/28/22 18:49 Pulse Rate 98 03/28/22 18:49 Respiratory Rate 20 H 03/28/22 18:49 Blood Pressure 139/81 03/28/22 18:49 Pulse Oximetry 97 03/28/22 18:49 Oxygen Delivery Me thod 03/28/22 18:49 MDM - Weakness Medical Decision Making Patient presents with generalized weakness has not been eating or drinking he is likely in a starvation state along with alcoholic ketoacidosis he does have an anion gap along with ketones and elevated lactate likely due to dehydration he has no signs of any infection we will start him on IV fluids I spoke to hospitalist will admit to the ICU. Lab Data 03/28/22 19:25 03/28/22 19:25 Radiology Impressions Chest X-Ray 03/28/22 18:49 IMPRESSION: 1. No definite acute finding. 2. A few left upper lateral chest lucencies are probably due to scarring and/or skin folds. Advise inspiration/expiration views chest work this up if the patient has any dyspnea. Provided history is merely weakness. Laboratory Results WBC 10.9 10^3/uL (4.0-10.0) H 03/28/22 19: RBC 4.03 10^6/uL (4.1-5.3) L 03/28/22 19: Hgb 13.8 g/dL (11.7-16.6) 03/28/22 19: Hct 41.2 % (42.0-52.0) L 03/28/22: MCV 102.2 fl (80-94) H 03/28/22 19: MCH 34.2 pg (28.0-34.0) H 03/28/22: MCHC 33.5 g/dL (30.0-36.0) 03/28/22: RDW 15.3 % (12.1-15.1) H 03/28/22: Plt Count 123 10^3/cmm (130-400) L 03/28/22: MPV 10.3 fL (7.4-10.4) 03/28/22 19: Neut % (Auto) 89.4 % 03/28/22 19: Lymph % (Auto) 3.0 % 03/28/22: [place] % (Auto) 6.7 % 03/28/22: Eos % (Auto) 0.0 % 03/28/22: Baso % (Auto) 0.3 % 03/28/22: Neut # (Auto) 9.73 10^3/uL (1.8-7.7) H 03/28/22: Lymph # (Auto) 0.3 10^3/uL (0.8-4.8) L 03/28/22: [place] # (Auto) 0.7 10^3/uL (0.2-0.9) 03/28/22: Eos # (Auto) 0.0 10^3/uL (0.0-0.8) 03/28/22: Baso # (Auto) 0.0 10^3/uL (0.0-0.1) 03/28/22: Nucleated RBC % (auto) 0 % 12/29/22 19:25 Nucleated RBCs # 0.0 /100WBC 03/28/22 19:25 Specimen Type Arterial 03/28/22 21:00 Sample Site Radial, right 03/28/22 21:00 ABG pH 7.30 (7.35-7.45) L 03/28/22 21:00 ABG pCO2 29.4 mmHg (35-45) L 03/28/22 21:00 ABG pO2 80.3 mmHg (80.0-100.0) 03/28/22 21:00 ABG HCO3 14.3 mmol/L (22-26) L 03/28/22 21:00 ABG Base Excess -10.8 mmol/L (-2.0-2.0) L 03/28/22 21:00 Phil Test Pos 03/28/22 21:00 Hematocrit 43.5 % (42-52) 03/28/22 21:00 O2 Delivery Device Room air 03/28/22 21:00 FiO2 21.0 % 03/28/22 21:00 Machine Shorthand Reporter ID Droch 03/28/22 21:00 Sodium 142 mmol/L (136-145) 03/28/22 19:25 Potassium 4.4 mmol/L (3.5-5.1) 03/28/22 19:25 Chloride 103 mmol/L (98-107) 03/28/22 19:25 Carbon Dioxide 12 mmol/L (22-29) L 03/28/22 19:25 Anion Gap 31.4 (5-19) H 03/28/22 19:25 BUN 20 mg/dL (8-23) 03/28/22 19:25 Creatinine 0.6 mg/dL (0.7-1.2) L 03/28/22 19:25 GFR Calculation 133.2 mL/min (90-130) H 03/28/22 19:25 Glucose 56 mg/dL (65-115) L 03/28/22 19:25 POC Glucose 84 mg/dL (70-110) 03/28/22 21:23 Calculated Osmolality 294 mOsm/kg (285-295) 03/28/22 19:25 Lactic Acid 6.5 mmol/L (0.5-2.2) H* 03/28/22 19:25 Calcium 8.6 mg/dL (8.5-10.5) 03/28/22 19:25 Magnesium 1.6 mg/dL (1.7-2.3) L 03/28/22 19:25 Total Bilirubin 0.4 mg/dL (0.15-1.2) 03/28/22 19:25 AST 46 U/L (0-40) H 03/28/22 19:25 ALT 20 U/L (0-41) 03/28/22 19:25 Alkaline Phosphatase 81 U/L (40-130) 03/28/22 19:25 Total Protein 6.6 g/dL (6.6-8.7) 03/28/22 19:25 Albumin 4.0 g/dL (3.5-5.2) 03/28/22 19:25 Globulin 2.6 g/dL (1.3-4.6) 03/28/22 19:25 TSH 0.67 uIU/mL (0.27-4.20) 03/28/22 19:25 Ethyl Alcohol 111 mg/dL (0-10) H 03/28/22 19:25 Serum Ketones Positive (Negative) H 03/28/22 19:25 EKG Data EKG 1: I personally reviewed and interpreted this EKG as follows: EKG interpretation date: 03/28/22 EKG interpretation time: 18:59 Interpretation: SINUS LUCIO hr [address] or t wave abnormalities qrs 86 qtc 469 Critical Care Time Critical Care Time: Critical Care Time: Yes Total Critical Care Time: 45 Attestation: The high probability of a clinically significant, sudden or life threatening deterioration of the patient's endocrine system(s) required my full and direct attention, intervention and personal management. The critical care time is as shown. This time is in addition to time spent performing any reported procedures but includes the following: [x] Data and vital sign review and interpretation [x] Patient assessment, examination and intervention [x] Documentation [x] Medication orders and management Discharge Plan Discharge Patient Disposition: Admitted As Inpatient Clinical Impression: Alcoholic ketoacidosis Condition: Stable Coding Level of Care Code ED Travel Trailer Components Assembler for Ronnell[facility] Fwd Exam Comprehensive
[2022-03-28 19:13] LABS: Glucose Point of Care 59 mg/dL (70-110)
[2022-03-28 19:48] LABS: Basophils % 0.3 %; Hematocrit 41.2 % (42.0-52.0); Hemoglobin 13.8 g/dL (11.7-16.6); Lymphocytes # 0.3 10^3/uL (0.8-4.8); Mean Corpuscular HGB Conc 33.5 g/dL (30.0-36.0); Mean Corpuscular Hemoglobin 34.2 pg (28.0-34.0); Mean Corpuscular Volume 102.2 fl (80-94); Mean Platelet Volume 10.3 fL (7.4-10.4); Monocytes # 0.7 10^3/uL (0.2-0.9); Monocytes % 6.7 %; Neutrophils # 9.73 10^3/uL (1.8-7.7); Neutrophils % 89.4 %; Nucleated Red Blood Cells % 0 %; Platelet Count 123 10^3/cmm (130-400); Red Blood Count 4.03 10^6/uL (4.1-5.3); Red Cell Distribution Width 15.3 % (12.1-15.1); White Blood Count 10.9 10^3/uL (4.0-10.0)
[2022-03-28] MEDS: sodium chloride 0.9% 1,000 ML 999 ML IV (20:06)
[2022-03-28 20:18] LABS: Alanine Aminotransferase 20 U/L (0-41); Alcohol Level 111 mg/dL (0-10); Alkaline Phosphatase 81 U/L (40-130); Anion Gap 31.4 (5-19); Aspartate Amino Transferase 46 U/L (0-40); Blood Urea Nitrogen 20 mg/dL (8-23); Calcium 8.6 mg/dL (8.5-10.5); Carbon Dioxide 12 mmol/L (22-29); Chloride 103 mmol/L (98-107); Globulin 2.6 g/dL (1.3-4.6); Glomerular Filtration Rate 133.2 mL/min (90-130); Glucose 56 mg/dL (65-115); Magnesium 1.6 mg/dL (1.7-2.3); Osmolality Calculated 294 mOsm/kg (285-295); Potassium 4.4 mmol/L (3.5-5.1); Sodium 142 mmol/L (136-145); Thyroid Stimulating Hormone 0.67 uIU/mL (0.27-4.20); Total Bilirubin 0.4 mg/dL (0.15-1.2); Total Protein 6.6 g/dL (6.6-8.7)
[2022-03-28 20:45] LABS: Ketone (Acetest) Serum Positive (Negative)
[2022-03-28 21:08] LABS: ABG PCO2 29.4 mmHg (35-45); Arterial Blood Gas Hematocrit 43.5 % (42-52); Base Excess ABG -10.8 mmol/L (-2.0-2.0); Blood Gas Allen Test Pos; Blood Gas Sample Site Radial, right; Blood Gas Sample Type Arterial; HCO3 ABG 14.3 mmol/L (22-26); Oxygen Device ROOM AIR; PO2 ABG 80.3 mmHg (80.0-100.0)
[2022-03-28 21:11] LABS: Lactic Sepsis W/Reflex 6.5 mmol/L (0.5-2.2)
[2022-03-28 21:27] LABS: Glucose Point of Care 84 mg/dL (70-110)
[2022-03-28 21:54] VITALS: BP 134/75; PULSE 84; RESP 16; O2SAT 98
[2022-03-28 22:28] LABS: Reflex Lactate Order REFLEX LACTIC ORDERD
--- NOTE | 2022-03-28 22:44 | ECG_ITS ---
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 Measurements Intervals [place] Rate: 64 P: 61 HI: 142 QRS: -8 QRSD: 80 T: -15 QT: 395 QTc: 408 Interpretive Statements SINUS RHYTHM NONSPECIFIC ST & T-WAVE ABNORMALITY Compared to ECG 03/28/2022 18:59:37 T-wave abnormality now present Sinus bradycardia no longer present Prolonged QT interval no longer present Electronically Signed On 03-29-2022 19:09:45 BRAZER REPAIR AND SALVAGE by Kylah Rodriguez M.D. [id number]
--- NOTE | 2022-03-28 22:45 | ECG_ITS ---
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 Measurements Intervals [place] Rate: 63 P: 82 [place]: 142 QRS: 21 QRSD: 85 T: 43 QT: 439 QTc: 451 Interpretive Statements SINUS RHYTHM NONSPECIFIC ST & T-WAVE ABNORMALITY Compared to ECG 03/28/2022 22:44:56 No significant changes Electronically Signed On 03-29-2022 20:43:45 SIDING COREBOARD INSPECTOR by Kylah Rodriguez M.D. [id number]
--- NOTE | 2022-03-28 23:03 | P.HP_ITS ---
Providers/Chief Complaint Admitting Physician: King Rodriguez MD Primary Care Provider: Karla Ruff DO Chief Complaint: FATIGUE/ NOT EATING/ WANTING TO SLEEP History of Present Illness Gerardo Millan is a 71 year old male with a past medical history of alcoholism, CAD, depression, anxiety, colon cancer s/p resection and radiation therapy, who presents to [facility] due to generalized weakness. He tells that he has had generalized weakness, fatigue, decreased appetite, he tells me that he has he has received radiation therapy to his abdomen for his colon cancer, he developed scarring of his stomach's, so he feels full very quickly, because of this he does not eat much. He does report drinking alcohol on a daily basis, did not have any alcohol in the last 24 hours, but last drink was roughly a day ago, he reports drinking vodka and coke. Denies any dysuria, no hematuria. No abdominal pain. No shortness of breath. No chest pain. No headache, blurry vision. No focal weakness. No slurring of his words. No focal weakness. More generalized weakness. No paresthesias. Denies any diarrhea. Denies any shortness of breath. Review of Systems Const: Denies: fever(s) Eyes: Denies: change in vision Card: Denies: chest pain Resp: Denies: dyspnea GI: Denies: abdominal pain : Denies: flank pain, difficulty urinating or dysuria Neuro: Denies: headache(s) Medications/Allergies Home Medications Medication Instructions Recorded Confirmed Last Taken Type multivitamin with folic acid 400 1 tab PO DAILY #30 tabs 09/22/20 02/15/21 02/14/21 Rx mcg tablet (Thera) aspirin 81 mg tablet,delayed 162 mg PO DAILY 10/18/20 02/15/21 02/14/21 History release (Adult Aspirin Regimen) budesonide-formoterol HFA 160 2 puff inhalation BID 10/18/20 02/15/21 02/14/21 History mcg-4.5 mcg/actuation aerosol inhaler (Symbicort) nitroglycerin 0.4 mg sublingual 0.4 mg sublingual Q5M PRN Chest 10/18/20 1 Unknown History tablet (Nitrostat) Pain polyethylene glycol 3350 17 17 g PO DAILY PRN Constipation 10/18/20 02/15/21 Unknown History gram/dose oral powder (Miralax) ondansetron HCl 4 mg tablet 4 mg PO Q6H PRN nausea and 11/13/20 02/15/21 Unknown Rx (Zofran) vomiting #20 tabs magnesium 30 mg tablet 30 mg PO BID #10 tabs 02/06/21 02/15/21 02/14/21 Rx folic acid 1 mg tablet 1 mg PO DAILY #30 tabs 02/13/21 02/15/21 02/14/21 Rx potassium chloride 10 mEq 10 meq PO DAILY #7 caps 02/13/21 02/15/21 02/14/21 Rx capsule,extended release sodium di- and 1 tab PO DAILY #7 tabs 02/13/21 02/15/21 02/14/21 Rx monophosphate-potassium phos monobasic 250 mg tablet (Phosphorous) thiamine HCl (vitamin B1) 100 mg 100 mg PO DAILY #60 tabs 02/13/21 02/15/21 1 04/16/20 Rx tablet Allergies Allergy/AdvReac Type Severity Reaction Status Date / Time corn Allergy ADR-Nausea Verified 02/15/21 20:41 grindstone Allergy Uknown Verified 02/15/21 20:41 pear Allergy ALGY-Rash Verified 02/15/21 20:41 Penicillins Allergy ALGY-Difficulty Verified 02/15/21 20:41 Breathing PFSH Acute PFSH: Medical History Acute dehydration Alcoholism Anal cancer Anxiety Cholelithiasis COPD (chronic obstructive pulmonary disease) CVA (cerebral vascular accident) Depression Dizziness DVT (deep venous thrombosis) Hypertension Hypomagnesemia Myocardial infarction Pancreatitis Status post chemoradiation Vomiting Surgical History History of ankle surgery History of tonsillectomy Hx of cataract extraction Hx of non-cataract eye surgery Status post colonoscopy Status post laparoscopic cholecystectomy (11/13/20) Family History Other Family history non-contributory Social History Alcohol intake: current Alcohol intake frequency: 3 or more drinks per day Household members: family Housing: House History of recent travel: Yes Vitals/I&O/Wt Last Vital Signs Temp 97.3 F L 03/28/22 18:49 Pulse 84 03/28/22 21:54 Resp 16 03/28/22 21:54 BP 134/75 03/28/22 21:54 Pulse Ox 98 03/28/22 21:54 O2 Del Method 03/28/22 21:54 Weight last 48 hrs Weight 63.957 kg Physical Exam Const: COMMON NORMALS: no acute distress and patient oriented x3 HENMT: COMMON NORMALS: normocephalic HEAD & SCALP: normocephalic Eye: COMMON NORMALS: Equal, round and reactive pupils present Neck/C-Spine: COMMON NORMALS: no JVD Lymph: LYMPHATIC: no lymphadenopathy noted Resp: COMMON NORMALS: normal respiratory effort, No retractions, No use of accessory muscles and clear to auscultation bilaterally AUSCULTATION: clear to auscultation bilaterally Cardio: COMMON NORMALS: no JVD, regular rate, regular rhythm, S1 normal heart sound present and S2 normal heart sound present RATE: regular rate RHYTHM: regular rhythm HEART SOUNDS: S1 normal heart sound present and S2 normal heart sound present GI: COMMON NORMALS: Normal to inspection, nondistended, normoactive bowel sounds present, Soft to palpation, non-tender, No hepatosplenomegaly present, no masses and no bruits PALPATION: Yes Soft to palpation and Yes No hepatosplenomegaly present Extremity: COMMON NORMALS: no clubbing, cyanosis or edema, no calf tenderness and no pedal edema Neuro: COMMON NORMALS: patient oriented x3, CN's II-XII intact bilaterally, moves all extremities and no focal motor deficits Psych: COMMON NORMALS: mental status grossly normal Data 03/28/22 19:25 03/28/22 19:25 A&P Assessment and plan (1) Alcoholic ketoacidosis: (2) Depression: (3) Anxiety: (4) Hypomagnesemia: (5) Alcohol abuse: (6) Generalized weakness: (7) Lactic acidosis: (8) Alcohol withdrawal: Plan Alcoholic ketosis, with lactic acidosis -Anion gap 31.4, bicarb 12, lactic acid 6.5 -Secondary to history of alcoholism -With hypomagnesemia -IV fluids monitor lactic acid Hypoglycemia -Likely secondary to alcoholic ketosis, blood sugars, D5 normal saline Alcohol abuse, alcohol withdrawal -[facility] protocol -Thiamine, folic acid, banana bag Lactic acidosis -Likely sec to dehydration, alcoholic ketosis -Chest x-ray no focal pneumonia -UA pending -Pro-Romaine, CRP, flu COVID Full code Lovenox for DVT prophylaxis Attestations Medical Necessity Statement*: Patient requires hospitalization, inpatient, greater than 2 midnights for alcohol ketoacidosis, lactic acidosis, alcohol withdrawal Coding Level of Care Code Acute Mirror Framer for [facility] Fwd Diagnoses Alcoholic ketoacidosis E87.29 Depression F32.9 Anxiety F41.9 Hypomagnesemia E83.42 Alcohol abuse F10.10 Generalized weakness R53.1 Lactic acidosis E87.20 Alcohol withdrawal F10.939
[2022-03-28 23:28] LABS: Add Urine Microscopic? NO; Charge for UA Resulting for Rev
[2022-03-28 23:36] LABS: Urine Color Yellow (Yellow)
[2022-03-28 23:37] LABS: Bilirubin Urine Neg (Negative); Blood Urine Neg (Negative); Glucose Urine UA Norm (Normal); Ketones Urine 3+ (Negative); Leukocyte Esterase Urine Negative (Negative); Nitrate Urine Negative (Negative); Protein Urine Neg (Negative); Specific Gravity, Urine 1.025 (1.005-1.030); Urine Appearance Clear (CLEAR); Urobilinogen Urine Norm (Negative); pH Urine 5 (5-7)
[2022-03-28 23:53] LABS: Troponin(5th) Baseline 19 ng/L (0-15)
[2022-03-29] VITALS (50 sets, daily range): BP systolic 99–122; BP diastolic 58–81; PULSE 49–113; RESP 15–29; TEMP 36.8–37.2; O2SAT 93–100; BMI 19.5
[2022-03-29 00:01] LABS: NT Pro B Type Natriuretic Pept 473 pg/mL (0-125); Procalcitonin 0.09 ng/mL (0-0.5)
[2022-03-29 00:11] LABS: Amylase 142 U/L (28-100); C Reactive Protein 15.5 mg/L (0.0-4.9); Lipase 16 U/L (13-60); Phosphorus 2.7 mg/dL (2.5-4.5)
[2022-03-29 00:37] LABS: Lactic Acid level (Lactate) 6.3 mmol/L (0.5-2.2)
[2022-03-29 00:39] LABS: Glucose Point of Care 162 mg/dL (70-110)
--- NOTE | 2022-03-29 00:42 | ECG_ITS ---
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 Measurements Intervals [place] Rate: 66 P: 56 [place]: 149 QRS: 17 QRSD: 82 T: 11 QT: 400 QTc: 420 Interpretive Statements SINUS RHYTHM NONSPECIFIC T-WAVE ABNORMALITY Compared to ECG 03/29/2022 00:03:08 No significant changes Electronically Signed On 03-29-2022 20:37:43 MEDICAL FIELD REPRESENTATIVE by Kylah Rodriguez M.D. [id number]
[2022-03-29] MEDS: dextrose 5%-ns + KCl 20 20 MEQ/1,000 ML BAG 100 MEQ IV ×3 (01:19→22:22)
[2022-03-29] MEDS: magnesium sulfate premix 2 GM/50 ML PIGGYBACK IV (01:27)
[2022-03-29] MEDS: folic acid 1 MG, multivitamin inj 10 ML, thiamine 100 MG in sodium chloride 0.9% 1,000 ML 252.8 MG IV (01:33)
[2022-03-29] MEDS: sodium bicarbonate 8.4% 1 mEq/mL 50mL Syr 25 MEQ IVP (01:35)
[2022-03-29 01:39] LABS: Troponin 5 2HR Delta 0 ABS# (0-10)
[2022-03-29] MEDS: enoxaparin 40 mg/0.4 mL Syringe SUBCUT (01:41)
[2022-03-29 01:43] LABS: Chol HDL Ratio 1.48 mg/dL (1.0-5.00); Cholesterol 190 mg/dL (0-200); HDL Cholesterol 128 mg/dL (60-100); LDL Cholesterol Calculated 49 mg/dL (50-129); LDL HDL Ratio 0.38 RATIO (0.00-3.22); Thyroid Stimulating Hormone 0.62 uIU/mL (0.27-4.20); Triglycerides 65 mg/dL (0-150)
[2022-03-29 02:07] LABS: Estmated Average Glucose 74; Hemoglobin A1C 4.2 % (4.0-6.0)
[2022-03-29 02:13] LABS: Glucose Point of Care 159 mg/dL (70-110)
[2022-03-29 03:04] LABS: Glucose Point of Care 168 mg/dL (70-110)
[2022-03-29 04:06] LABS: Glucose Point of Care 161 mg/dL (70-110)
--- NOTE | 2022-03-29 04:23 | ECG_ITS ---
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 Measurements Intervals [place] Rate: 66 P: -90 [place]: 107 QRS: 21 QRSD: 86 T: 41 QT: 471 QTc: 494 Interpretive Statements JUNCTIONAL RHYTHM WITH OCCASIONAL SUPRAVENTRICULAR PREMATURE COMPLEXES PROLONGED QT INTERVAL Compared to ECG 03/29/2022 00:54:56 Junctional rhythm now present Prolonged QT interval now present Sinus rhythm no longer present T-wave abnormality no longer present Electronically Signed On 03-29-2022 20:35:57 ASSURANCE SOURCING MANAGER by Kylah Rodriguez M.D. [id number]
[2022-03-29 04:34] LABS: Influenza A by IFA negative (Negative); Influenza B by IFA negative (Negative)
[2022-03-29 05:07] LABS: Glucose Point of Care 153 mg/dL (70-110)
[2022-03-29 06:01] LABS: Basophils % 0.5 %; Eosinophils % 0.1 %; Hematocrit 35.5 % (42.0-52.0); Hemoglobin 11.7 g/dL (11.7-16.6); Lymphocytes # 0.9 10^3/uL (0.8-4.8); Lymphocytes % 10.5 %; Mean Corpuscular Hemoglobin 33.5 pg (28.0-34.0); Mean Corpuscular Volume 101.7 fl (80-94); Mean Platelet Volume 11.3 fL (7.4-10.4); Monocytes % 11.5 %; Neutrophils # 6.47 10^3/uL (1.8-7.7); Nucleated Red Blood Cells % 0 %; Platelet Count 107 10^3/cmm (130-400); Red Blood Count 3.49 10^6/uL (4.1-5.3); Red Cell Distribution Width 14.9 % (12.1-15.1); White Blood Count 8.4 10^3/uL (4.0-10.0)
[2022-03-29 06:16] LABS: Glucose Point of Care 154 mg/dL (70-110)
[2022-03-29 06:16] LABS: Troponin 5 6HR 17.96 ng/L (0-15)
[2022-03-29 06:17] LABS: Lactate (Lactic Acid level) 1.9 mmol/L (0.5-2.2)
[2022-03-29 06:18] LABS: Troponin 5 6HR Delta -1.04 ng/L (0-12)
[2022-03-29 06:20] LABS: Blood Urea Nitrogen 15 mg/dL (8-23); Calcium 7.6 mg/dL (8.5-10.5); Carbon Dioxide 22 mmol/L (22-29); Chloride 104 mmol/L (98-107); Glomerular Filtration Rate 164.4 mL/min (90-130); Glucose 152 mg/dL (65-115); Magnesium 1.8 mg/dL (1.7-2.3); Osmolality Calculated 286 mOsm/kg (285-295); Phosphorus 1.3 mg/dL (2.5-4.5); Sodium 136 mmol/L (136-145)
[2022-03-29 06:23] LABS: Anion Gap 14.3 (5-19); Potassium 4.3 mmol/L (3.5-5.1)
[2022-03-29 06:33] LABS: Adenovirus Not Detected (NOT DETECT); Chlamydia Pneumoniae Not Detected (NOT DETECT); Coronavirus 229E,HKU1,NL63,OC4 Not Detected (NOT DETECT); Human Metapneumovirus Not Detected (NOT DETECT); Human Rhinovirus/Enterovirus Not Detected (NOT DETECT); Influenza A Not Detected (NOT DETECT); Influenza A H1 Not Detected (NOT DETECT); Influenza A H1-2009 Not Detected (NOT DETECT); Influenza A H3 Not Detected (NOT DETECT); Influenza B Not Detected (NOT DETECT); Mycoplasma Pneumoniae Not Detected (NOT DETECT); Parainfluenza Virus Type 1 Not Detected (NOT DETECT); Parainfluenza Virus Type 2 Not Detected (NOT DETECT); Parainfluenza Virus Type 3 Not Detected (NOT DETECT); Parainfluenza Virus Type 4 Not Detected (NOT DETECT); Respiratory Syncytial Virus A Not Detected (NOT DETECT); Respiratory Syncytial Virus B Not Detected (NOT DETECT); SARS-COV-2 Not Detected (NOT DETECT)
[2022-03-29 07:10] LABS: Glucose Point of Care 156 mg/dL (70-110)
[2022-03-29 08:14] LABS: Glucose Point of Care 149 mg/dL (70-110)
[2022-03-29] MEDS: aspirin 81 mg EC Tablet 162 MG PO (08:31)
[2022-03-29] MEDS: multivitamin therapeutic Tablet 1 TAB PO (08:31)
[2022-03-29] MEDS: phosphorus 250 mg Tablet PO (08:31)
[2022-03-29] MEDS: folic acid 1 mg Tablet PO (08:31)
[2022-03-29] MEDS: potassium chloride ER 10 mEq Tablet PO (08:31)
[2022-03-29] MEDS: thiamine 100 mg Tablet PO (08:31)
[2022-03-29 10:05] LABS: Glucose Point of Care 158 mg/dL (70-110)
--- NOTE | 2022-03-29 10:16 | PC.CHAP ---
Pastoral Care Encounter/Spiritual Assessment Type of Contact [] Declined centrifugal chiller technician visit [] Patient/Family/Request visit [] Outpatient visit [] Follow-up visit [] Physician referral [] Code/Alert [x] Routine visit [] Staff referral [] Actively dying [] Patient sleeping [] Family support [] [] Out of room [] Palliative care [] [] Receiving care in room [] Pre-surgical visit [] Trauma [] Long length of stay [] ICU visit [] Other: Relational/Emotional Strength [x] Patient feels connected with others/family/visitors/staff [] Distress [] Loneliness/isolation [] Abandonment Spirituality of Patient [x] Person of Christelle [x] Attends Hoahaoism of their Christelle [x] Believes in Prayer [] Reads Bible or Zoroastrian materials [] There are Spiritual issues to be addressed Senior Hr Generalist Interventions [x] Prayer [x] Active listening [x] Non-anxious presence [x] Spiritual/emotional support [] Crisis/trauma care [] Spiritual counseling [] Bereavement support [] Provided bereavement packet [] Provided Bible/devotional materials [] Provided toy/stuffed animal, coloring book to patient or family member [] Provided Communion [] Anointing/[place] [] Salvation [x] Completed spiritual assessment [] Other: Impact on Illness or Injury [] Angry [] Fearful [] Anxious [] Often cries [] Exhaustion [] Unable to work [] Unable to attend episcopalian [] Unable to walk/stand [] Unable to read [] Unable to drive [] Unable to eat/drink [] Unable to sleep [] Unable to be with family [] Patient intubated [] Other: Summary Time spent with patient 1o min
[2022-03-29 12:05] LABS: Glucose Point of Care 137 mg/dL (70-110)
--- NOTE | 2022-03-29 14:03 | PC.OT ---
OT Eval Attempted - Patient asleep at time of evaluation, will attempt again later.
--- NOTE | 2022-03-29 16:31 | CTR_ITS ---
PROCEDURE INFORMATION: Exam: CT Abdomen And Pelvis With Contrast Exam date and time: 03/29/2022 4:47 PM Age: 71 years old Clinical indication: Other: Weight loss; Abdominal pain; Prior surgery; Surgery date: 6+ months; Surgery type: S/P chemorad for anal squamous cell CA. HX cholecystectomy; Additional info: Evaluate for malignancy, h/o anal squamous cell CA S/P chemorad 3 years ago p/w TECHNIQUE: Imaging protocol: Computed tomography of the abdomen and pelvis with contrast. Sagittal and coronal reformatted images were created and reviewed. Radiation optimization: All CT scans at this facility use at least one of these dose optimization techniques: automated exposure control; mA and/or kV adjustment per patient size (includes targeted exams where dose is matched to clinical indication); or iterative reconstruction. Contrast material: OMNI 350; Contrast volume: 100 ml; Contrast route: INTRAVENOUS (IV); COMPARISON: CT abdomen pelvis w con* [id number] 09/19/2020 10:42 PM RADIATION DOSE METRICS: Total DLP (mGy-cm): 393.07 FINDINGS: Lungs: Dependent atelectasis in the lungs bilaterally. Scarring with bronchiectatic changes in the visualized lower lobes. Pleural spaces: No pleural effusion. Heart: Stable mild enlargement of the visualized portions of the heart. Liver: Diffuse, moderately decreased density in the liver. Findings are stable and consistent with moderate fatty infiltration. Gallbladder and bile ducts: The patient has had an interval cholecystectomy. No biliary ductal dilatation. Pancreas: The pancreas is unremarkable. No pancreatic ductal dilatation. Spleen: The spleen is unremarkable. Adrenal glands: The right and left adrenal glands are unremarkable. Kidneys and ureters: Stable subcentimeter hypodense foci in both right and left kidneys that are too small to characterize, however likely represent small cysts. 2 cysts in the left kidney are stable, the larger measures 3.6 cm (series 3, image 28). The right and left ureters are unremarkable. Stomach and bowel: The stomach is collapsed, which can limit evaluation. No focal abnormality in the stomach otherwise. No acute abnormality in the small bowel. No acute abnormality in the colon. Appendix: Appendix not definitely visualized. No inflammatory changes in the pericecal region however. Intraperitoneal space: No free intraperitoneal air. No ascites. No loculated fluid collections to suggest an abscess. Vasculature: Stable mild atherosclerotic calcifications in the visualized arteries. No evidence for aortic aneurysm or aortic dissection. Hepatic veins, portal veins, splenic vein, and SMV are patent. Lymph nodes: No lymphadenopathy. Urinary bladder: The bladder is incompletely filled, which can limit evaluation. Despite this, there is diffuse, dipv-yp-lnanulge wall thickening of the bladder. Reproductive: Unremarkable as visualized. Bones/joints: Multiple old left rib fractures. Bones are diffusely osteopenic. Multiple old mild to moderate compression deformities in the visualized spine. Soft tissues: No acute abnormality in the extra-abdominal soft tissues. CT/CT abdomen pelvis w con* [id number] IMPRESSION: 1. Stable moderate fatty infiltration of the liver. 2. The patient has had an interval cholecystectomy. 3. The bladder is incompletely filled, which can limit evaluation. Despite this, there is diffuse, [id number] wall thickening of the bladder. In the correct clinical setting, this may suggest cystitis. Recommend correlation with laboratory findings. 4. Incidental/nonacute findings are listed in the report.
--- NOTE | 2022-03-29 16:32 | PM.PN ---
Subjective Subjective: no new complaints, feels improving today, anion gap reslved with hydration, no further hypoglycemia Medications: Reviewed: Yes Vitals/I&O/Wt Last Vital Signs Temp 98.4 F 03/29/22 08:00 Pulse 59 L 03/29/22 14:00 Resp 17 03/29/22 14:00 BP 114/69 03/29/22 12:00 Pulse Ox 97 03/29/22 12:30 O2 Del Method 03/29/22 07:46 03/29/22 03/29/22 03/29/22 06:59 14:59 22:59 Intake Total 1.2 / 1.2 1306.667 / 1306.667 Output Total 150 / 150 Balance 1911.2 / 1961.2 1306.667 / 1306.667 Weight last 48 hrs Weight 65.408 kg Weight 63.957 kg Physical Exam Narrative: General: No acute distress, AO x3, deconditioned HEENT: PERRLA, pupils bilaterally equal and reactive, pallors not present Chest: Normal vesicular breath sounds, no added sounds, equal good air entry bilaterally CVS: S1-S2 regular, no murmurs, no tachycardia, no gallops, no rubs Abdomen: Soft, nontender, no organomegaly, bowel sounds present Neuro: No focal deficits, no facial deformity, AO x3, power 5/5 in all limbs Data 03/29/22 05:42 03/29/22 05:42 Micro: Microbiology 03/28/22 23:17 Blood Culture - Preliminary Blood SPECIMEN COLLECTED 03/28/22 23:15 Blood Culture - Preliminary Blood SPECIMEN COLLECTED A&P Assessment and plan (1) Alcoholic ketoacidosis: (2) Depression: (3) Anxiety: (4) Hypomagnesemia: (5) Alcohol abuse: (6) Generalized weakness: (7) Lactic acidosis: (8) Alcohol withdrawal: Plan Alcoholic ketosis, with lactic acidosis -Anion gap 31.4, bicarb 12, lactic acid 6.5; now resolved with hydration -Secondary to history of alcoholism -With hypomagnesemia -IV fluids monitor lactic acid Hypoglycemia -Likely secondary to alcoholic ketosis, blood sugars, D5 normal saline now blod sugar nrmal, has resumed diet Alcohol abuse, alcohol withdrawal -[facility] protocol -Thiamine, folic acid, banana bag Lactic acidosis -Likely sec to dehydration, alcoholic ketosis -Chest x-ray no focal pneumonia -UA pending -Pro-Romaine, CRP, flu COVID negative Reports early satiety, weight loss and abdominal pain, h/o anal SCC, Ct abdomen/pelvis to evaluate for any malignant process Full code Lovenox for DVT prophylaxis Attestations Medical Necessity Statement*: transfer out of ICU, continue iv hydration, Ci[place] onitoring Coding Level of Care Code Acute Client Coordinator for Chg Fwd Diagnoses Alcoholic ketoacidosis E87.29 Depression F32.9 Anxiety F41.9 Hypomagnesemia E83.42 Alcohol abuse F10.10 Generalized weakness R53.1 Lactic acidosis E87.20 Alcohol withdrawal F10.939
[2022-03-29] MEDS: iohexol 350 mg/mL 500 mL Btl (per mL) IV (16:43)
[2022-03-29 17:37] LABS: Glucose Point of Care 89 mg/dL (70-110)
[2022-03-29 23:34] LABS: Glucose Point of Care 111 mg/dL (70-110)
[2022-03-30] VITALS: BP 105/67; PULSE 56; RESP 15; TEMP 36.6; O2SAT 97
[2022-03-30] MEDS: enoxaparin 40 mg/0.4 mL Syringe SUBCUT (00:54)
[2022-03-30 03:43] VITALS: BP 106/47; PULSE 47; RESP 16; TEMP 36.7; O2SAT 95
[2022-03-30 06:21] LABS: Glucose Point of Care 135 mg/dL (70-110)
[2022-03-30 06:31] LABS: Glucose Point of Care 108 mg/dL (70-110)
[2022-03-30 06:35] VITALS: PULSE 61
[2022-03-30 08:00] VITALS: BP 120/66; PULSE 50; PULSE 68; RESP 16; TEMP 36.3; O2SAT 97; O2SAT 98
[2022-03-30 08:45] LABS: Basophils % 0.9 %; Eosinophils # 0.2 10^3/uL (0.0-0.8); Eosinophils % 4.3 %; Hematocrit 34.4 % (42.0-52.0); Hemoglobin 11.6 g/dL (11.7-16.6); Lymphocytes % 22.7 %; Mean Corpuscular HGB Conc 33.7 g/dL (30.0-36.0); Mean Corpuscular Hemoglobin 34.3 pg (28.0-34.0); Mean Corpuscular Volume 101.8 fl (80-94); Mean Platelet Volume 11.4 fL (7.4-10.4); Monocytes # 0.8 10^3/uL (0.2-0.9); Monocytes % 17.8 %; Neutrophils # 2.28 10^3/uL (1.8-7.7); Neutrophils % 54.1 %; Nucleated Red Blood Cells % 0 %; Platelet Count 98 10^3/cmm (130-400); Red Blood Count 3.38 10^6/uL (4.1-5.3); Red Cell Distribution Width 15.2 % (12.1-15.1); White Blood Count 4.2 10^3/uL (4.0-10.0)
[2022-03-30 09:07] LABS: Alanine Aminotransferase 13 U/L (0-41); Alkaline Phosphatase 68 U/L (40-130); Anion Gap 8.8 (5-19); Aspartate Amino Transferase 24 U/L (0-40); Blood Urea Nitrogen 13 mg/dL (8-23); Calcium 8.3 mg/dL (8.5-10.5); Carbon Dioxide 24 mmol/L (22-29); Chloride 106 mmol/L (98-107); Globulin 2.3 g/dL (1.3-4.6); Glomerular Filtration Rate 164.4 mL/min (90-130); Glucose 91 mg/dL (65-115); Osmolality Calculated 280 mOsm/kg (285-295); Potassium 3.8 mmol/L (3.5-5.1); Sodium 135 mmol/L (136-145); Total Bilirubin 1.1 mg/dL (0.15-1.2); Total Protein 5.3 g/dL (6.6-8.7)
[2022-03-30] MEDS: dextrose 5%-ns + KCl 20 20 MEQ/1,000 ML BAG 100 MEQ IV (09:39)
[2022-03-30] MEDS: folic acid 1 mg Tablet PO (09:43)
[2022-03-30] MEDS: aspirin 81 mg EC Tablet 162 MG PO (09:43)
[2022-03-30] MEDS: multivitamin therapeutic Tablet 1 TAB PO (09:43)
[2022-03-30] MEDS: potassium chloride ER 10 mEq Tablet PO (09:43)
[2022-03-30] MEDS: thiamine 100 mg Tablet PO (09:43)
[2022-03-30] MEDS: phosphorus 250 mg Tablet PO (09:44)
[2022-03-30 12:00] VITALS: BP 116/72; PULSE 55; RESP 16; TEMP 36.4; O2SAT 98
[2022-03-30 12:10] LABS: Glucose Point of Care 133 mg/dL (70-110)
--- NOTE | 2022-03-30 16:19 | PC.NURSE ---
1430 discharge instructions given to patient who voiced understanding. patient dressed in scrubs and waiting for a ride.
[2022-03-30 16:21] VITALS: BP 116/72; PULSE 55; RESP 16; TEMP 36.4; O2SAT 98
--- NOTE | 2022-03-30 16:24 | PC.NURSE ---
1620 patient taken to car service per wheelchair patient has personal belongings and is in stable condition. patient accompanied to car per staff.
--- NOTE | 2022-03-30 18:02 | P.DS_ITS ---
Discharge Providers Date of Admission: 03/28/22 21:48 Date of Discharge: March 30, 2022 Attending Provider at Admission: King Rodriguez MD Attending Provider at Discharge: Briana Nava MD Primary Care Provider: Karla Ruff DO Diagnoses at Discharge Discharge Diagnosis (1) Alcoholic ketoacidosis: Status: Acute (2) Depression: Status: Acute (3) Anxiety: Status: Acute (4) Hypomagnesemia: Status: Acute (5) Alcohol abuse: Status: Acute (6) Generalized weakness: Status: Acute (7) Lactic acidosis: Status: Acute (8) Alcohol withdrawal: Status: Acute Reason for Visit Reason for Visit: FATIGUE/ NOT EATING/ WANTING TO SLEEP Hospital Course Hospital Course Gerardo Millan is a 71 year old male with a past medical history of alcoholism, CAD, depression, anxiety, colon cancer s/p resection and radiation therapy, who presents to [facility] due to generalized weakness.? He stated that he had a poor appetite. He consumes alcohol daily. Upon presentation he was diagnosed with alcoholic ketosis, with lactic acidosis. Anion gap was 31, bicarb of 12 and lactate of 6. Started was related to acute alcohol intoxication. He received IV fluids, was hydrated and his electrolyte abnormalities corrected pretty quickly. He was monitored on the [facility] protocol, is doing well today. He had hypoglycemia upon admission, likely secondary to poor p.o. intake from drinking the alcohol. Same treatment with D5 normal saline and thereafter was resumed on regular meals. He is being discharged today in stable to improved condition. Recommended to stop alcohol consumption. CT of the abdomen was performed as he had been complaining of reduced appetite early satiety and had a history of anal cancer. There was no malignancy noted on the study. Incidentally noted was cystitis, however patient's UA was clean and he had no urinary symptoms therefore no antibiotic treatment was warranted. He is being discharged to home where he lives with his brother Physical Exam Narrative: General: No acute distress, AO x3 HEENT: PERRLA, pupils bilaterally equal and reactive, pallors not present Chest: Normal vesicular breath sounds, no added sounds, equal good air entry bilaterally CVS: S1-S2 regular, no murmurs, no tachycardia, no gallops, no rubs Abdomen: Soft, nontender, no organomegaly, bowel sounds present Neuro: No focal deficits, no facial deformity, AO x3, power 5/5 in all limbs Discharge Data Studies Completed and Pending Completed Studies During Hospitalization Category Date Time Status CT abdomen pelvis w con* [id number] Routine Cat Scan 03/29/22 16:31 Completed XR chest 1V portable [id number] Stat Exams 03/28/22 18:49 Completed Pending at discharge Category Date Time Status Blood Culture Stat Lab 03/28/22 23:17 Results Radiology Impressions Chest X-Ray 03/28/22 18:49 IMPRESSION: 1. No definite acute finding. 2. A few left upper lateral chest lucencies are probably due to scarring and/or skin folds. Advise inspiration/expiration views chest work this up if the patient has any dyspnea. Provided history is merely weakness. Abdomen/Pelvis CT 03/29/22 16:31 IMPRESSION: 1. Stable moderate fatty infiltration of the liver. 2. The patient has had an interval cholecystectomy. 3. The bladder is incompletely filled, which can limit evaluation. Despite this, there is diffuse, rcix-op-okonfyuo wall thickening of the bladder. In the correct clinical setting, this may suggest cystitis. Recommend correlation with laboratory findings. 4. Incidental/nonacute findings are listed in the report. Laboratory Results WBC 4.2 10^3/uL (4.0-10.0) 03/30/22 07:58 RBC 3.38 10^6/uL (4.1-5.3) L 03/30/22 07:58 Hgb 11.6 g/dL (11.7-16.6) L 03/30/22 07:58 Hct 34.4 % (42.0-52.0) L 03/30/22 07:58 MCV 101.8 fl (80-94) H 03/30/22 07:58 MCH 34.3 pg (28.0-34.0) H 03/30/22 07:58 MCHC 33.7 g/dL (30.0-36.0) 03/30/22 07:58 RDW 15.2 % (12.1-15.1) H 03/30/22 07:58 Plt Count 98 10^3/cmm (130-400) L 03/30/22 07:58 MPV 11.4 fL (7.4-10.4) H 03/30/22 07:58 Neut % (Auto) 54.1 % 03/30/22 07:58 Lymph % (Auto) 22.7 % 03/30/22 07:58 [place] % (Auto) 17.8 % 03/30/22 07:58 Eos % (Auto) 4.3 % 03/30/22 07:58 Baso % (Auto) 0.9 % 03/30/22 07:58 Neut # (Auto) 2.28 10^3/uL (1.8-7.7) 03/30/22 07:58 Lymph # (Auto) 1.0 10^3/uL (0.8-4.8) 03/30/22 07:58 [place]idge # (Auto) 0.8 10^3/uL (0.2-0.9) 03/30/22 07:58 Eos # (Auto) 0.2 10^3/uL (0.0-0.8) 03/30/22 07:58 Baso # (Auto) 0.0 10^3/uL (0.0-0.1) 03/30/22 07:58 Nucleated RBC % (auto) 0 % 03/30/22 07:58 Nucleated RBCs # 0.0 /100WBC 03/30/22 07:58 Specimen Type Arterial 03/28/22 21:00 Sample Site Radial, right 03/28/22 21:00 ABG pH 7.30 (7.35-7.45) L 03/28/22 21:00 ABG pCO2 29.4 mmHg (35-45) L 03/28/22 21:00 ABG pO2 80.3 mmHg (80.0-100.0) 03/28/22 21:00 ABG HCO3 14.3 mmol/L (22-26) L 03/28/22 21:00 ABG Base Excess -10.8 mmol/L (-2.0-2.0) L 03/28/22 21:00 Phil Test Pos 03/28/22 21:00 Hematocrit 43.5 % (42-52) 03/28/22 21:00 O2 Delivery Device Room air 03/28/22 21:00 FiO2 21.0 % 03/28/22 21:00 Activities Specialist ID Droch 03/28/22 21:00 Sodium 135 mmol/L (136-145) L 03/30/22 07:58 Potassium 3.8 mmol/L (3.5-5.1) 03/30/22 07:58 Chloride 106 mmol/L (98-107) 03/30/22 07:58 Carbon Dioxide 24 mmol/L (22-29) 03/30/22 07:58 Anion Gap 8.8 (5-19) 03/30/22 07:58 BUN 13 mg/dL (8-23) 03/30/22 07:58 Creatinine 0.5 mg/dL (0.7-1.2) L 03/30/22 07:58 GFR Calculation 164.4 mL/min (90-130) H 03/30/22 07:58 Glucose 91 mg/dL (65-115) 03/30/22 07:58 POC Glucose 133 mg/dL (70-110) H 03/30/22 11:55 Estimat Average Glucose 74 03/28/22 19:25 Hemoglobin A1c 4.2 % (4.0-6.0) 03/28/22 19:25 Calculated Osmolality 280 mOsm/kg (285-295) L 03/30/22 07:58 Lactic Acid 6.5 mmol/L (0.5-2.2) H* 03/28/22 19:25 Lactic Acid (Sepsis) 6.3 mmol/L (0.5-2.2) H* 03/28/22 23:15 Lactate 1.9 mmol/L (0.5-2.2) 03/29/22 05:42 Calcium 8.3 mg/dL (8.5-10.5) L 03/30/22 07:58 Phosphorus 1.3 mg/dL (2.5-4.5) L D 03/29/22 05:42 Magnesium 1.8 mg/dL (1.7-2.3) 03/29/22 05:42 Total Bilirubin 1.1 mg/dL (0.15-1.2) 03/30/22 07:58 AST 24 U/L (0-40) 03/30/22 07:58 ALT 13 U/L (0-41) 03/30/22 07:58 Alkaline Phosphatase 68 U/L (40-130) 03/30/22 07:58 Troponin T Baseline 19 ng/L (0-15) H 03/28/22 23:17 Troponin T 120 Minute 19.00 ng/L (0-15) H 03/29/22 00:59 Delta Troponin T 0 ABS# (0-10) 03/29/22 00:59 Troponin T Hi Sens 6Hr 17.96 ng/L (0-15) H 03/29/22 05:42 Troponin T Hi Sens 6Hr Delta -1.04 ng/L (0-12) L 03/29/22 05:42 C-Reactive Protein 15.5 mg/L (0.0-4.9) H 03/28/22 23:15 NT-Pro-B Natriuret Pep 473 pg/mL (0-125) H 03/28/22 23:15 Total Protein 5.3 g/dL (6.6-8.7) L 03/30/22 07:58 Albumin 3.0 g/dL (3.5-5.2) L 03/30/22 07:58 Globulin 2.3 g/dL (1.3-4.6) 03/30/22 07:58 Triglycerides 65 mg/dL (0-150) 03/29/22 00:59 Cholesterol 190 mg/dL (0-200) 03/29/22 00:59 LDL Cholesterol, Calc 49 mg/dL (50-129) L 03/29/22 00:59 HDL Cholesterol 128 mg/dL (60-100) H 03/29/22 00:59 LDL/HDL Ratio 0.38 RATIO (0.00-3.22) 03/29/22 00:59 Cholesterol/HDL Ratio 1.48 mg/dL (1.0-5.00) 03/29/22 00:59 Amylase 142 U/L (28-100) H 03/28/22 23:15 Lipase 16 U/L (13-60) 03/28/22 23:15 Procalcitonin 0.09 ng/mL (0-0.5) 03/28/22 23:15 TSH 0.62 uIU/mL (0.27-4.20) 03/29/22 00:59 Urine Color Yellow (Yellow) 03/28/22 23:00 Urine Appearance Clear (CLEAR) 03/28/22 23:00 Urine pH 5 (5-7) 03/28/22 23:00 Ur Specific Lizella 1.025 (1.005-1.030) 03/28/22 23:00 Urine Protein Neg (Negative) 03/28/22 23:00 Urine Glucose (UA) Norm (Normal) 03/28/22 23:00 Urine Ketones 3+ (Negative) H 03/28/22 23:00 Urine Blood Neg (Negative) 03/28/22 23:00 Urine Nitrate Negative (Negative) 03/28/22 23:00 Urine Bilirubin Neg (Negative) 03/28/22 23:00 Urine Urobilinogen Norm mg/dL (Negative) 03/28/22 23:00 Ur Leukocyte Esterase Negative (Negative) 03/28/22 23:00 Ethyl Alcohol 111 mg/dL (0-10) H 03/28/22 19:25 Serum Ketones Positive (Negative) H 03/28/22 19:25 Coronavirus 229E (PCR) Not detected (NOT DETECT) 03/29/22 04:00 Influenza Type A Ag negative (Negative) 03/29/22 04:00 Influenza Type B Ag negative (Negative) 03/29/22 04:00 SARS-CoV-2 (PCR) Not detected (NOT DETECT) 03/29/22 04:00 Vitals Last Vital Signs Temp 97.6 F 03/30/22 16:21 Pulse 55 L 03/30/22 16:21 Resp 16 03/30/22 16:21 BP 116/72 03/30/22 16:21 Pulse Ox 98 03/30/22 16:21 O2 Del Method 03/30/22 12:00 Discharge Plan Discharge Patient Disposition: Home Condition: Stable Prescriptions: New ondansetron 4 mg tablet,disintegrating 4 mg PO Q8H PRN (Reason: nausea and vomiting) 4 Days Qty: 14 0RF Continued aspirin [Adult Aspirin Regimen] 81 mg tablet,delayed release (DR/EC) 162 mg PO DAILY polyethylene glycol 3350 [Miralax] 17 gram/dose powder 17 g PO DAILY PRN (Reason: Constipation) budesonide-formoterol [Symbicort] 160-4.5 mcg/actuation HFA aerosol inhaler 2 puff inhalation BID nitroglycerin [Nitrostat] 0.4 mg tablet, sublingual 0.4 mg sublingual Q5M PRN (Reason: Chest Pain) Rx Instructions: do not exceed 3 doses per episode multivitamin with folic acid [Thera] 400 mcg Tablet 1 tab PO DAILY Qty: 30 0RF folic acid 1 mg Tablet 1 mg PO DAILY Qty: 30 3RF thiamine HCl (vitamin B1) 100 mg tablet 100 mg PO DAILY Qty: 60 2RF potassium chloride 10 mEq capsule, extended release 10 meq PO DAILY Qty: 7 0RF Discharge Orders: Discharge Order (Routine); Ordered 03/30/22 Ordered By: Briana Nava Referrals: Karla Ruff DO [Primary Care Provider] - (Please call Friday to [facility] a follow up appointment.) Discharge Diet: Advance as tolerated and Usual diet Discharge Activity: Resume usual activity Patient Instructions: Alcohol Abuse, Alcohol Withdrawal, Ondansetron (By mouth), Opioid Safety Discharge Attestations Time Spent in Discharge Care*: greater than 30 min Status at Discharge: Cognitive status at discharge: cognitively intact , Behavioral status at discharge: cooperative , Quality Metrics Clinical Quality Measures [ No reported AMI, CVA or VTE this stay] Coding Level of Care Code Acute Chg DC note Diagnoses Alcoholic ketoacidosis E87.29 Depression F32.9 Anxiety F41.9 Hypomagnesemia E83.42 Alcohol abuse F10.10 Generalized weakness R53.1 Lactic acidosis E87.20 Alcohol withdrawal F10.939
== END 2022-03-30 16:20 | disposition home health service (06) | DRG 897 ==
LOC: ER 21:31 → ICU 21:49 → MEDSURG 03-29 23:35
PROVIDERS: Admitting Provider Family Medicine; Emergency Provider Emergency Medicine; PCP Family Medicine; Visit Provider Student in an Organized Health Care Education/Training Program
DX: F10.129 Alcohol abuse with intoxication, unspecified (principal); E87.29 Other acidosis; F10.180 Alcohol abuse with alcohol-induced anxiety disorder; F10.139 Alcohol abuse with withdrawal, unspecified; F10.14 Alcohol abuse with alcohol-induced mood disorder; Y90.5 Blood alcohol level of 100-119 mg/100 ml; E83.42 Hypomagnesemia; I25.10 Atherosclerotic heart disease of native coronary artery without angina pectoris; Z85.038 Personal history of other malignant neoplasm of large intestine; Z90.49 Acquired absence of other specified parts of digestive tract; Z92.3 Personal history of irradiation; Z92.21 Personal history of antineoplastic chemotherapy; E16.2 Hypoglycemia, unspecified; Z79.82 Long term (current) use of aspirin; J44.9 Chronic obstructive pulmonary disease, unspecified; Z86.73 Personal history of transient ischemic attack (TIA), and cerebral infarction without residual deficits; Z86.718 Personal history of other venous thrombosis and embolism; I10 Essential (primary) hypertension; I25.2 Old myocardial infarction; R68.81 Early satiety; Z88.0 Allergy status to penicillin
CPT/HCPCS: 36415; 36416; 36600; 71045; 74177; 80048; 80053; 80061; 80307; 81003; 82009; 82150; 82803; 82962; 83036; 83605; 83690; 83735; 83880; 84100; 84145; 84443; 84484; 85025; 86140; 87040; 87635; 87804; 92523; 92610; 93005; 94664; 96360; 96372; 97110; 97116; 97161; 97166; 99285; J1650; J3411; J3475; J3490; J7030; Q9967

== ENCOUNTER 2022-03-31 07:03 | Emergency (ER) | payer MEDICARE, MEDICAID, SELFPAY ==
[2022-03-31 07:04] VITALS: BP 110/75; PULSE 54; RESP 18; TEMP 36.6; O2SAT 96; BMI 19.0
--- NOTE | 2022-03-31 07:26 | ECG_ITS ---
[facility] Test Date: 2022-03-31 Pat Name: Gerardo Millan Department: Room: Gender: Male Statistics Manager: : 1950 Requested By: Hoang Krishna Order Number: [id number] Bell MD: Ashwin Marie M.D. Measurements Intervals [place]kinson Rate: 55 P: 33 NE: 144 QRS: 39 QRSD: 102 T: 61 QT: 513 QTc: 491 Interpretive Statements SINUS BRADYCARDIA PROLONGED QT INTERVAL CRITICAL TEST RESULT Compared to ECG 03/29/2022 05:27:29 Junctional rhythm no longer present Electronically Signed On 03-31-2022 20:18:46 CHEMISTRY SPECIALIST by Ashwin Marie M.D. [email or web address]
--- NOTE | 2022-03-31 07:26 | ED_ITS ---
HPI - Weakness General: Chief complaint: Weakness Stated complaint: WEAKNESS; ETOH Time Seen by Provider: 03/31/22 07:17 Source: patient and EMS Mode of arrival: EMS Limitations: no limitations History of Present Illness: This patient was transported to the emergency department by EMS. Patient was just discharged from this facility yesterday. He apparently states he was in the shower and felt like he was too weak to get out of the shower. He did not fall or injure himself. He denied any focal we akness just felt like he was concerned he might not build get out of his sitting position in the shower. He has a history of chronic alcohol use and states he only had 1 drink yesterday after being discharged in the hospital. He denies any chest pain shortness of breath, vertigo, difficulty with speech etc. Denies any injury at this time. He states that his previous episode that he had was due to low blood sugar. He is not diabetic. MD Complaint: generalized weakness Relieving factors: none Exacerbating factors: none Associated symptoms: Reports easy bruising; Denies chest pain, chills, dysuria, fever(s), headache(s), nausea, syncope or vomiting Review of Systems Const: Denies: fever(s) or chills Eyes: Denies: change in vision ENMT: Denies: throat pain Card: Denies: chest pain, palpitations, irregular heart rhythm, syncope or pre-syncope Resp: Denies: dyspnea, productive cough or non-productive cough GI: Denies: abdominal pain, nausea, vomiting or diarrhea : Denies: flank pain, difficulty urinating, dysuria or urinary frequency Musc: Denies: neck pain, back pain, extremity pain or extremity swelling Skin/Breast: Denies: rash Neuro: Denies: headache(s), numbness in extremities, dizziness or seizure-like activity Psych: Denies: anxiety, depression, suicidal ideation or homicidal ideation Alberto/Lymph: Reports: easy bruising PFSH ED PFSH: Medical History Acute dehydration Alcoholism Anal cancer Anxiety Cholelithiasis COPD (chronic obstructive pulmonary disease) CVA (cerebral vascular accident) Depression Dizziness DVT (deep venous thrombosis) Hypertension Hypomagnesemia Myocardial infarction Pancreatitis Status post chemoradiation Vomiting Surgical History History of ankle surgery History of tonsillectomy Hx of cataract extraction Hx of non-cataract eye surgery Status post colonoscopy Status post laparoscopic cholecystectomy (11/13/20) Family History Other Family history non-contributory Social History Alcohol intake: current Alcohol intake frequency: 3 or more drinks per day Household members: family Housing: House History of recent travel: Yes Physical Exam Narrative: EXAM NARRATIVE: The patient is alert makes good eye contact. His speech is goal-directed and fluent. Const: COMMON NORMALS: no acute distress, patient oriented x3 and alert GENERAL APPEARANCE: cooperative and comfortable NUTRITIONAL APPEARANCE: thin ORIENTATION/CONSCIOUSNESS: Yes oriented to person, Yes oriented to place and Yes oriented to time HENMT: COMMON NORMALS: normocephalic, atraumatic, TM's normal bilaterally, Normal nasal mucous membranes and turbinates present and moist oral mucous membranes HEAD & SCALP: normocephalic and atraumatic FACE & SINUS: normal facial exam NOSE: Normal nasal mucous membranes and turbinates present TYMPANIC MEMBRANE: TM's normal bilaterally Eye: COMMON NORMALS: Equal, round and reactive pupils present, EOMs intact bilaterally and conjunctivae normal CONJUNCTIVA: Yes conjunctivae normal PUPIL: Yes Equal, round and reactive pupils present Neck/C-Spine: COMMON NORMALS: full ROM, supple, Thyroid normal and No carotid bruits THYROID: Thyroid normal CERVICAL SPINE: Yes cervical ROM normal, No Cervical spine tenderness and No step off deformity Chest: COMMONS NORMALS: normal inspection of the chest and normal palpation of entire chest wall Resp: COMMON NORMALS: normal respiratory effort, No use of accessory muscles and clear to auscultation bilaterally EFFORT & INSPECTION: Yes able to speak in complete sentences AUSCULTATION: clear to auscultation bilaterally Cardio: COMMON NORMALS: regular rate, regular rhythm, No murmurs present (Cardio) and Peripheral pulses 2+ throughout RATE: regular rate RHYTHM: regular rhythm PERIPHERAL PULSES: Peripheral pulses 2+ throughout GI: COMMON NORMALS: Normal to inspection, nondistended, normoactive bowel sounds present, Soft to palpation, non-tender and no masses INSPECTION: Yes normal to inspection PALPATION: Yes Soft to palpation : COMMON NORMALS: Yes no CVA tenderness BLADDER/KIDNEY EXAM: Yes no CVA tenderness Back/Pelvis: COMMON NORMALS: no CVA tenderness, thoracic and lumbar spine normal to inspection, no thoracic nor lumbar tenderness and thoraco-lumbar ROM normal Extremity: COMMON NORMALS: normal to inspection, full ROM, capillary refill normal, no clubbing, cyanosis or edema, no calf tenderness and no pedal edema Neuro: COMMON NORMALS: patient oriented x3, moves all extremities, no focal motor deficits and no sensory deficits noted SENSORIUM/ORIENTATION: Yes alert, Yes oriented to person, Yes oriented to place and Yes oriented to time CRANIAL NERVES: Yes CN normal except as noted Psych: COMMON NORMALS: mental status grossly normal Skin: COMMON NORMALS: no rashes or lesions noted, no wounds and turgor normal GENERAL SKIN EXAM: no rashes or lesions noted and turgor normal Course Reevaluation(s): Reevaluation #1: Patient's vital signs remained in his normal range. He remains stable and unchanged regarding to his physical status. His blood alcohol is noted. Time: 09:42 Vital Signs: Vital signs: Vital Signs Temperature 97.8 F 03/31/22 07:04 Pulse Rate 81 03/31/22 09:05 Respiratory Rate 16 03/31/22 08:14 Blood Pressure 124/101 03/31/22 09:05 Pulse Oximetry 92 03/31/22 09:05 Oxygen Delivery Me thod 03/31/22 07:04 MDM - Weakness Medical Decision Making Individual who has has chronic alcohol use and abuse who return to the emergency department after being discharged in the hospital because he felt like he could not get out of the shower because he was concerned about slippage. He denied sustaining any falls or injuries. He only admitted to drinking 1 alcoholic drink since discharge. His clinical examination here reveals him to be alert, cogent and with decision-making capacity. He has laboratories revealed a elevated blood alcohol level at 252 mg percent. No evidence of arrhythmia, or other concerning finding. He ambulated to the bathroom while being observed by the crime scene technician. No evidence of hypotension, hypoglycemia, anemia, or other acute emergency medical problem that necessitates further observation and or admission. He has his ongoing chronic alcoholism but is certainly safe to be discharged to the care of his partner. Medical Records I reviewed the patient's medical records. Lab Data I reviewed the patient's lab results. 03/31/22 07:40 03/31/22 07:40 Laboratory Results WBC 5.6 10^3/uL (4.0-10.0) 03/31/22 07:40 RBC 3.63 10^6/uL (4.1-5.3) L 03/31/22 07:40 Hgb 12.3 g/dL (11.7-16.6) 03/31/22 07:40 Hct 37.0 % (42.0-52.0) L 03/31/22 07:40 MCV 101.9 fl (80-94) H 03/31/22 07:40 MCH 33.9 pg (28.0-34.0) 03/31/22 07:40 MCHC 33.2 g/dL (30.0-36.0) 03/31/22 07:40 RDW 14.9 % (12.1-15.1) 03/31/22 07:40 Plt Count 120 10^3/cmm (130-400) L 03/31/22 07:40 MPV 11.2 fL (7.4-10.4) H 03/31/22 07:40 Neut % (Auto) 60.4 % 03/31/22 07:40 Lymph % (Auto) 17.4 % 03/31/22 07:40 [place] % (Auto) 14.2 % 03/31/22 07:40 Eos % (Auto) 7.1 % 03/31/22 07:40 Baso % (Auto) 0.7 % 03/31/22 07:40 Neut # (Auto) 3.41 10^3/uL (1.8-7.7) 03/31/22 07:40 Lymph # (Auto) 1.0 10^3/uL (0.8-4.8) 03/31/22 07:40 [place] # (Auto) 0.8 10^3/uL (0.2-0.9) 03/31/22 07:40 Eos # (Auto) 0.4 10^3/uL (0.0-0.8) 03/31/22 07:40 Baso # (Auto) 0.0 10^3/uL (0.0-0.1) 03/31/22 07:40 Nucleated RBC % (auto) 0 % 03/31/22 07:40 Nucleated RBCs # 0.0 /100WBC 03/31/22 07:40 Sodium 136 mmol/L (136-145) 03/31/22 08:20 Potassium 3.9 mmol/L (3.5-5.1) 03/31/22 08:20 Chloride 103 mmol/L (98-107) 03/31/22 08:20 Carbon Dioxide 23 mmol/L (22-29) 03/31/22 08:20 Anion Gap 13.9 (5-19) 03/31/22 08:20 BUN 9 mg/dL (8-23) 03/31/22 08:20 Creatinine 0.5 mg/dL (0.7-1.2) L 03/31/22 08:20 GFR Calculation 164.4 mL/min (90-130) H 03/31/22 08:20 Glucose 79 mg/dL (65-115) 03/31/22 08:20 POC Glucose 78 mg/dL (70-110) 03/31/22 07:45 Calculated Osmolality 280 mOsm/kg (285-295) L 03/31/22 08:20 Calcium 8.7 mg/dL (8.5-10.5) 03/31/22 08:20 Total Bilirubin 0.4 mg/dL (0.15-1.2) 03/31/22 08:20 AST 38 U/L (0-40) 03/31/22 08:20 ALT 17 U/L (0-41) 03/31/22 08:20 Alkaline Phosphatase 84 U/L (40-130) 03/31/22 08:20 Total Protein 6.0 g/dL (6.6-8.7) L 03/31/22 08:20 Albumin 3.4 g/dL (3.5-5.2) L 03/31/22 08:20 Globulin 2.6 g/dL (1.3-4.6) 03/31/22 08:20 Ethyl Alcohol 252 mg/dL (0-10) H 03/31/22 08:20 EKG Data EKG 1: I personally reviewed and interpreted this EKG as follows: Interpretation: Resting EKG reveals ventricular rate of 55 bpm consistent with a sinus bradycardia. ME interval is normal. QRS duration is normal. QTc is slightly prolonged at 501 ms. Normal axis. He has a prolonged QTC today. Prior EKGs revealed his QTC to be in the range of 460 to 495 ms and this is slightly prolonged at [address] No acute [address]-T wave changes noted. Discharge Plan Discharge Patient Disposition: Home Clinical Impression: Alcohol abuse Condition: Stable Prescriptions: No Action aspirin [Adult Aspirin Regimen] 81 mg tablet,delayed release (DR/EC) 162 mg PO DAILY polyethylene glycol 3350 [Miralax] 17 gram/dose powder 17 g PO DAILY PRN (Reason: Constipation) budesonide-formoterol [Symbicort] 160-4.5 mcg/actuation HFA aerosol inhaler 2 puff inhalation BID nitroglycerin [Nitrostat] 0.4 mg tablet, sublingual 0.4 mg sublingual Q5M PRN (Reason: Chest Pain) Rx Instructions: do not exceed 3 doses per episode multivitamin with folic acid [Thera] 400 mcg Tablet 1 tab PO DAILY Qty: 30 0RF folic acid 1 mg Tablet 1 mg PO DAILY Qty: 30 3RF thiamine HCl (vitamin B1) 100 mg tablet 100 mg PO DAILY Qty: 60 2RF potassium chloride 10 mEq capsule, extended release 10 meq PO DAILY Qty: 7 0RF ondansetron 4 mg tablet,disintegrating 4 mg PO Q8H PRN (Reason: nausea and vomiting) 4 Days Qty: 14 0RF Discharge Orders: Discharge ED (Routine); Ordered 03/31/22 Ordered By: Hoang Krishna Referrals: Karla Ruff DO [Primary Care Provider] - Discharge Diet: Usual diet Discharge Activity: Increase activity as tolerated Patient Instructions: Opioid Safety, Pain Management Activity Restrictions/Additional Instructions: Do not drink alcohol. Continue all your usual prescribed medications. Follow- up with your regular doctor in the next 7 to 14 days. If you develop any new persistent or worsening symptoms return to this or the nearest emergency depa rtment. Coding Level of Care Code ED Help Desk Technician for Katrin Mike Exam Comprehensive
[2022-03-31 07:49] LABS: Basophils % 0.7 %; Eosinophils # 0.4 10^3/uL (0.0-0.8); Eosinophils % 7.1 %; Hemoglobin 12.3 g/dL (11.7-16.6); Lymphocytes % 17.4 %; Mean Corpuscular HGB Conc 33.2 g/dL (30.0-36.0); Mean Corpuscular Hemoglobin 33.9 pg (28.0-34.0); Mean Corpuscular Volume 101.9 fl (80-94); Mean Platelet Volume 11.2 fL (7.4-10.4); Monocytes # 0.8 10^3/uL (0.2-0.9); Monocytes % 14.2 %; Neutrophils # 3.41 10^3/uL (1.8-7.7); Neutrophils % 60.4 %; Nucleated Red Blood Cells % 0 %; Platelet Count 120 10^3/cmm (130-400); Red Blood Count 3.63 10^6/uL (4.1-5.3); Red Cell Distribution Width 14.9 % (12.1-15.1); White Blood Count 5.6 10^3/uL (4.0-10.0)
[2022-03-31 07:50] LABS: Glucose Point of Care 78 mg/dL (70-110)
[2022-03-31] MEDS: sodium chloride 0.9% 1,000 ML 999 ML IV (08:04)
[2022-03-31 08:14] VITALS: BP 112/64; PULSE 50; RESP 16; O2SAT 96
[2022-03-31 08:50] LABS: Alanine Aminotransferase 17 U/L (0-41); Albumin Level 3.4 g/dL (3.5-5.2); Alcohol Level 252 mg/dL (0-10); Alkaline Phosphatase 84 U/L (40-130); Aspartate Amino Transferase 38 U/L (0-40); Blood Urea Nitrogen 9 mg/dL (8-23); Calcium 8.7 mg/dL (8.5-10.5); Carbon Dioxide 23 mmol/L (22-29); Chloride 103 mmol/L (98-107); Creatinine Clr Calc Pharmacy 77.1738; Globulin 2.6 g/dL (1.3-4.6); Glomerular Filtration Rate 164.4 mL/min (90-130); Glucose 79 mg/dL (65-115); Osmolality Calculated 280 mOsm/kg (285-295); Sodium 136 mmol/L (136-145); Total Bilirubin 0.4 mg/dL (0.15-1.2)
[2022-03-31 09:05] VITALS: BP 124/101; PULSE 81; O2SAT 92
[2022-03-31 09:23] LABS: Anion Gap 13.9 (5-19); Potassium 3.9 mmol/L (3.5-5.1)
[2022-03-31 10:36] VITALS: BP 136/82; PULSE 54; RESP 16; O2SAT 95
== END 2022-03-31 10:20 | disposition home or self-care (01) ==
PROVIDERS: Emergency Provider Emergency Medicine; PCP Family Medicine
DX: F10.10 Alcohol abuse, uncomplicated (principal); Z85.048 Personal history of other malignant neoplasm of rectum, rectosigmoid junction, and anus; J44.9 Chronic obstructive pulmonary disease, unspecified; Z86.73 Personal history of transient ischemic attack (TIA), and cerebral infarction without residual deficits; I10 Essential (primary) hypertension; I25.2 Old myocardial infarction
CPT/HCPCS: 36416; 80053; 80307; 82962; 85025; 93005; 96360; 99284; J7030

== ENCOUNTER → 2022-04-12 14:15 | Outpatient (BNVA) | payer MEDICARE, MEDICAID, SELFPAY | PROVIDERS: PCP Family Medicine; Visit Provider Podiatrist Foot & Ankle Surgery | DX: I73.9 Peripheral vascular disease, unspecified (principal); L90.9 Atrophic disorder of skin, unspecified; B35.1 Tinea unguium; L85.3 Xerosis cutis; M20.41 Other hammer toe(s) (acquired), right foot; M20.42 Other hammer toe(s) (acquired), left foot | CPT/HCPCS: 11056; 11721; 99203 ==

== ENCOUNTER 2022-05-02 16:42 | Emergency (ER) | payer MEDICARE, MEDICAID, SELFPAY ==
[2022-05-02 16:50] VITALS: BP 96/63; PULSE 62; RESP 16; TEMP 37.1; O2SAT 98; BMI 19.0
--- NOTE | 2022-05-02 16:59 | W.ED.WEAKNES ---
HPI - Weakness General: Chief complaint: Weakness Stated complaint: WEAKNESS & ETOH Time Seen by Provider: 05/02/22 16:49 Source: patient and EMS Mode of arrival: EMS Limitations: no limitations History of Present Illness: This patient who is well-known to this emergency department was transported to the emergency department via EMS. Allegedly according to the patient he is was laying down on the floor because of his chronic back pain. He states his roommate thought he might had fallen and called EMS. He does admit to drinking 3 drinks today but has a longstanding history of chronic alcoholism. Specifically denies falls or injury. He otherwise states he is not any change in his usual constitutional symptoms. Associated symptoms: Denies chest pain, chills, dysuria, fever(s), headache(s), nausea, syncope or vomiting Review of Systems Const: Denies: fever(s) or chills Eyes: Denies: change in vision ENMT: Denies: throat pain, odynophagia, nasal discharge or nasal congestion Card: Denies: chest pain, palpitations, syncope or pre-syncope Resp: Denies: dyspnea, productive cough or non-productive cough GI: Denies: abdominal pain, nausea, vomiting or diarrhea : Denies: flank pain, difficulty urinating, dysuria or urinary frequency Musc: Reports: back pain (Chronic); Denies: neck pain or extremity swelling Skin/Breast: Denies: rash Neuro: Denies: headache(s), numbness in extremities or weakness in extremities Psych: Denies: suicidal ideation or homicidal ideation PFS ED PFSH: Medical History Acute dehydration Alcoholism Anal cancer Anxiety Cholelithiasis COPD (chronic obstructive pulmonary disease) CVA (cerebral vascular accident) Depression Dizziness DVT (deep venous thrombosis) Hypertension Hypomagnesemia Myocardial infarction Pancreatitis Status post chemoradiation Vomiting Surgical History History of ankle surgery History of tonsillectomy Hx of cataract extraction Hx of non-cataract eye surgery Status post colonoscopy Status post laparoscopic cholecystectomy (11/13/20) Family History Other Family history non-contributory Social History Alcohol intake: current Alcohol intake frequency: 3 or more drinks per day Household members: family Housing: House History of recent travel: Yes Physical Exam Narrative: EXAM NARRATIVE: quite loquacious but able to answer questions in a detailed and goal-directed fashion. Const: COMMON NORMALS: no acute distress, patient oriented x3 and no limitations GENERAL APPEARANCE: cooperative NUTRITIONAL APPEARANCE: thin HENMT: COMMON NORMALS: normocephalic, atraumatic, Normal nasal mucous membranes and turbinates present and moist oral mucous membranes HEAD & SCALP: normocephalic and atraumatic FACE & SINUS: normal facial exam NOSE: Normal nasal mucous membranes and turbinates present TEETH & GINGIVA: Yes poor dentition Eye: COMMON NORMALS: no scleral icterus OTHER: Corneal opacity left eye right normal Neck/C-Spine: COMMON NORMALS: full ROM and supple CERVICAL SPINE: Yes cervical ROM normal, No Cervical spine tenderness, No step off deformity, No Paracervical muscle tenderness and No Paracervical spasm Chest: COMMONS NORMALS: normal inspection of the chest and normal palpation of entire chest wall Resp: COMMON NORMALS: normal respiratory effort, No retractions, No use of accessory muscles and clear to auscultation bilaterally AUSCULTATION: clear to auscultation bilaterally Cardio: COMMON NORMALS: regular rate, regular rhythm, No murmurs present (Cardio) and Peripheral pulses 2+ throughout RATE: regular rate RHYTHM: regular rhythm PERIPHERAL PULSES: Peripheral pulses 2+ throughout GI: COMMON NORMALS: Normal to inspection, nondistended, normoactive bowel sounds present, Soft to palpation and non-tender PALPATION: Yes Soft to palpation : COMMON NORMALS: Yes no CVA tenderness BLADDER/KIDNEY EXAM: Yes no CVA tenderness Back/Pelvis: COMMON NORMALS: no CVA tenderness, thoracic and lumbar spine normal to inspection, no thoracic nor lumbar tenderness and thoraco-lumbar ROM normal PELVIS: Yes no pain with anterior-posterior compression and Yes no pain with lateral compression Extremity: COMMON NORMALS: normal to inspection, full ROM, capillary refill normal, no calf tenderness and no pedal edema Neuro: COMMON NORMALS: patient oriented x3, moves all extremities and no focal motor deficits CRANIAL NERVES: Yes CN normal except as noted GAIT: Yes Normal gait present Psych: COMMON NORMALS: mental status grossly normal Skin: COMMON NORMALS: no rashes or lesions noted, no wounds and turgor normal GENERAL SKIN EXAM: no rashes or lesions noted and turgor normal Course Reevaluation(s): Reevaluation #1: Patient was reexamined. He remains alert cooperative. He is hungry and requests a snack. No new or focal findings on repeat examination. No findings at this time to suggest an ongoing emergency medical condition. He has intact decision-making capacity albeit poor decisions and does not display any findings that suggest acute injury. He is stable to be discharged to his home with his roommate at this time. Time: 18:51 Vital Signs: Vital signs: Vital Signs Temperature 98.7 F 05/02/22 16:50 Pulse Rate 62 05/02/22 16:50 Respiratory Rate 16 05/02/22 16:50 Blood Pressure 96/63 05/02/22 16:50 Pulse Oximetry 98 05/02/22 16:50 Oxygen Delivery Me thod 05/02/22 16:50 MDM - Weakness Medical Decision Making Gentleman who has a history of chronic alcohol abuse currently was thought to have fallen by his roommate and EMS was notified. He was transported to the emergency department for evaluation. Upon arrival the patient confided that he had not fallen that he is lying on the floor because of he has back pain and he was trying to lie on a hard surface. His clinical examination did not feel any findings at this time clinically to suggest a fall without any contusions, tenderness, deformity etc. Screening laboratories were obtained during his time of observation which did not reveal any significant perturbations from previous laboratories. The patient's primary issue is his chronic alcohol use which apparently puts him at odds with his roommate who frequently notifies EMS for transport to the emergency department. At the culmination of his evaluation in the emergency department there is no evidence of an ongoing emergency medical condition he is stable to be discharged home. Lab Data I reviewed the patient's lab results. 05/02/22 17:28 05/02/22 17: Laboratory Results WBC 7.0 10^3/uL (4.0-10.0) 05/02/22 17: RBC 3.61 10^6/uL (4.1-5.3) L 05/02/22 17: Hgb 11.9 g/dL (11.7-16.6) 05/02/22 17: Hct 36.0 % (42.0-52.0) L 05/02/22 17: MCV 99.7 fl (80-94) H 05/02/22 17: MCH 33.0 pg (28.0-34.0) 05/02/22 17: MCHC 33.1 g/dL (30.0-36.0) 05/02/22: RDW 14.6 % (12.1-15.1) 05/02/22: Plt Count 147 10^3/cmm (130-400) 05/02/22 17: MPV 10.6 fL (7.4-10.4) H 05/02/22: Neut % (Auto) 59.8 % 05/02/22: Lymph % (Auto) 24.8 % 05/02/22: [place] % (Auto) 12.4 % 05/02/22: Eos % (Auto) 1.9 % 05/02/22: Baso % (Auto) 0.7 % 05/02/22: Neut # (Auto) 4.19 10^3/uL (1.8-7.7) 05/02/22: Lymph # (Auto) 1.7 10^3/uL (0.8-4.8) 05/02/22: [place] # (Auto) 0.9 10^3/uL (0.2-0.9) 05/02/22: Eos # (Auto) 0.1 10^3/uL (0.0-0.8) 05/02/22: Baso # (Auto) 0.1 10^3/uL (0.0-0.1) 05/02/22: Nucleated RBC % (auto) 0 % 05/02/22: Nucleated RBCs # 0.0 /100WBC 05/02/22: Sodium 139 mmol/L (136-145) 05/02/22 17: Potassium 3.8 mmol/L (3.5-5.1) 05/02/22: Chloride 101 mmol/L (98-107) 05/02/22 17: Carbon Dioxide 24 mmol/L (22-29) 05/02/22 17:28 Anion Gap 17.8 (5-19) 05/02/22 17:28 BUN 15 mg/dL (8-23) 05/02/22 17:28 Creatinine 0.6 mg/dL (0.7-1.2) L 05/02/22 17:28 GFR Calculation 133.2 mL/min (90-130) H 05/02/22 17:28 Glucose 84 mg/dL (65-115) 05/02/22 17:28 Calculated Osmolality 288 mOsm/kg (285-295) 05/02/22 17:28 Calcium 9.3 mg/dL (8.5-10.5) 05/02/22 17:28 Magnesium 1.5 mg/dL (1.7-2.3) L 05/02/22 17:28 Total Bilirubin 0.4 mg/dL (0.15-1.2) 05/02/22 17:28 AST 34 U/L (0-40) 05/02/22 17:28 ALT 19 U/L (0-41) 05/02/22 17:28 Alkaline Phosphatase 83 U/L (40-130) 05/02/22 17:28 Total Protein 6.0 g/dL (6.6-8.7) L 05/02/22 17:28 Albumin 3.7 g/dL (3.5-5.2) 05/02/22 17:28 Globulin 2.3 g/dL (1.3-4.6) 05/02/22 17:28 Discharge Plan Discharge Patient Disposition: Home Clinical Impression: Chronic alcohol abuse, Encounter for medical screening examination Condition: Stable Prescriptions: No Action aspirin [Adult Aspirin Regimen] 81 mg tablet,delayed release (DR/EC) 162 mg PO DAILY polyethylene glycol 3350 [Miralax] 17 gram/dose powder 17 g PO DAILY PRN (Reason: Constipation) budesonide-formoterol [Symbicort] 160-4.5 mcg/actuation HFA aerosol inhaler 2 puff inhalation BID nitroglycerin [Nitrostat] 0.4 mg tablet, sublingual 0.4 mg sublingual Q5M PRN (Reason: Chest Pain) Rx Instructions: do not exceed 3 doses per episode multivitamin with folic acid [Thera] 400 mcg Tablet 1 tab PO DAILY Qty: 30 0RF folic acid 1 mg Tablet 1 mg PO DAILY Qty: 30 3RF thiamine HCl (vitamin B1) 100 mg tablet 100 mg PO DAILY Qty: 60 2RF potassium chloride 10 mEq capsule, extended release 10 meq PO DAILY Qty: 7 0RF Discharge Orders: Discharge ED (Routine); Ordered 05/02/22 Ordered By: Hoang Krishna Referrals: Karla Ruff, [Primary Care Provider] - Discharge Diet: Usual diet Discharge Activity: Increase activity as tolerated Patient Instructions: Opioid Safety, Pain Management Activity Restrictions/Additional Instructions: Do not drink alcohol. Continue all your usual prescribed medications. If you develop any new or concerning symptoms at any time you are welcome to return to the emergency department for reevaluation. Coding Level of Care Code ED Wildfire Prevention Specialist for Katrin Fwteresita Exam Comprehensive
[2022-05-02 17:45] LABS: Basophils # 0.1 10^3/uL (0.0-0.1); Basophils % 0.7 %; Eosinophils # 0.1 10^3/uL (0.0-0.8); Eosinophils % 1.9 %; Hemoglobin 11.9 g/dL (11.7-16.6); Lymphocytes # 1.7 10^3/uL (0.8-4.8); Lymphocytes % 24.8 %; Mean Corpuscular HGB Conc 33.1 g/dL (30.0-36.0); Mean Corpuscular Volume 99.7 fl (80-94); Mean Platelet Volume 10.6 fL (7.4-10.4); Monocytes # 0.9 10^3/uL (0.2-0.9); Monocytes % 12.4 %; Neutrophils # 4.19 10^3/uL (1.8-7.7); Neutrophils % 59.8 %; Nucleated Red Blood Cells % 0 %; Platelet Count 147 10^3/cmm (130-400); Red Blood Count 3.61 10^6/uL (4.1-5.3); Red Cell Distribution Width 14.6 % (12.1-15.1)
[2022-05-02 17:58] LABS: Alanine Aminotransferase 19 U/L (0-41); Albumin Level 3.7 g/dL (3.5-5.2); Alkaline Phosphatase 83 U/L (40-130); Anion Gap 17.8 (5-19); Aspartate Amino Transferase 34 U/L (0-40); Blood Urea Nitrogen 15 mg/dL (8-23); Calcium 9.3 mg/dL (8.5-10.5); Carbon Dioxide 24 mmol/L (22-29); Chloride 101 mmol/L (98-107); Creatinine Clr Calc Pharmacy 77.1738; Globulin 2.3 g/dL (1.3-4.6); Glomerular Filtration Rate 133.2 mL/min (90-130); Glucose 84 mg/dL (65-115); Magnesium 1.5 mg/dL (1.7-2.3); Osmolality Calculated 288 mOsm/kg (285-295); Potassium 3.8 mmol/L (3.5-5.1); Sodium 139 mmol/L (136-145); Total Bilirubin 0.4 mg/dL (0.15-1.2)
[2022-05-02 19:51] VITALS: BP 101/60; PULSE 63; RESP 18; O2SAT 97
== END 2022-05-02 19:52 | disposition home or self-care (01) ==
PROVIDERS: Emergency Provider Emergency Medicine; PCP Family Medicine
DX: Z00.8 Encounter for other general examination (principal); F10.10 Alcohol abuse, uncomplicated; Y90.9 Presence of alcohol in blood, level not specified
CPT/HCPCS: 36415; 80053; 83735; 85025; 99283

== ENCOUNTER 2022-07-03 14:09 | Outpatient (RCR) | payer MEDICARE, MEDICAID, SELFPAY | END 2022-07-28 23:59 | disposition home or self-care (01) | LOC: SPT 14:09 | PROVIDERS: Visit Provider Family Medicine | DX: R53.1 Weakness (principal) | CPT/HCPCS: 97110; 97161 ==

== ENCOUNTER 2022-07-29 06:00 | Outpatient (RCR) | payer MEDICARE, MEDICAID, SELFPAY | END 2022-08-22 23:59 | disposition home or self-care (01) | LOC: SPT 06:00 | PROVIDERS: Visit Provider Family Medicine | DX: R53.81 Other malaise (principal) | CPT/HCPCS: 97110 ==

== ENCOUNTER 2022-09-14 08:43 | Observation (INO) | payer MEDICARE, MEDICAID, SELFPAY ==
[2022-09-14] VITALS (8 sets, daily range): BP systolic 109–127; BP diastolic 69–79; PULSE 53–78; RESP 15–19; TEMP 36.3–37.1; O2SAT 94–100
--- NOTE | 2022-09-14 08:59 | W.ED.ALCOHOL ---
HPI - Alcohol General: Chief Complaint: Alcohol Stated Complaint: ETOH WANTS DETOX Time Seen by Provider: 09/14/22 08:45 Source: patient and EMS Mode of arrival: EMS Limitations: no limitations History of Present Illness: Patient presents emergency department today brought by EMS for evaluation and treatment of acute alcohol intoxication and request for detox. Patient has a long history of chronic alcohol abuse. EMS was called by the patient's brother who felt the patient was altered and, reports that the patient had been evaluated for detox facility but did not qualify. They are wanting him evaluated here for potential detox and rehab facility. Patient at this time appears intoxicated but not significantly altered. He is alert and aware. He is able to answer all his own history. He answers appropriately. Patient indicates his desire to participate in a detox program. Patient reports his last drink was at 11:00-he indicated this was 11:00 yesterday morning, almost 24 hours ago, but EMS indicated patient was holding a drink when they arrived to his home. Patient admits he has hardly eaten anything. He reports that it is because he does not like to cook for himself so he just does not eat. Patient's drink of choice is vodka and orange juice. When asked, he states he typically has 2 a day. Patient denies any recent falls or injuries. He denies being in any pain at this time. He denies any recent vomiting, abdominal pain, or diarrhea. Review of Systems General: Reports: 10 or more systems reviewed and unremarkable except in HPI and below PFSH ED PFSH: Medical History Acute dehydration Alcoholism Anal cancer Anxiety Cholelithiasis COPD (chronic obstructive pulmonary disease) CVA (cerebral vascular accident) Depression Dizziness DVT (deep venous thrombosis) Hypertension Hypomagnesemia Myocardial infarction Pancreatitis Status post chemoradiation Vomiting Surgical History History of ankle surgery History of tonsillectomy Hx of cataract extraction Hx of non-cataract eye surgery Status post colonoscopy Status post laparoscopic cholecystectomy (11/13/20) Family History Other Family history non-contributory Social History Alcohol intake: current Alcohol intake frequency: 3 or more drinks per day Substance/Drug Use: never Household members: family Housing: House Physical Exam Const: COMMON NORMALS: no acute distress, patient oriented x3 and alert HENMT: COMMON NORMALS: normocephalic, atraumatic, hearing grossly normal bilaterally and moist oral mucous membranes HEAD & SCALP: normocephalic and atraumatic Eye: COMMON NORMALS: Equal, round and reactive pupils present, EOMs intact bilaterally and conjunctivae normal CONJUNCTIVA: Yes conjunctivae normal PUPIL: Yes Equal, round and reactive pupils present Neck/C-Spine: COMMON NORMALS: full ROM and no JVD Lymph: LYMPHATIC: no lymphadenopathy noted Resp: COMMON NORMALS: normal respiratory effort, No retractions, No use of accessory muscles and clear to auscultation bilaterally AUSCULTATION: clear to auscultation bilaterally Cardio: COMMON NORMALS: no JVD, regular rate and regular rhythm RATE: regular rate RHYTHM: regular rhythm GI: COMMON NORMALS: Normal to inspection, nondistended, normoactive bowel sounds present and Soft to palpation PALPATION: Yes Soft to palpation : COMMON NORMALS: Yes no CVA tenderness BLADDER/KIDNEY EXAM: Yes no CVA tenderness Back/Pelvis: COMMON NORMALS: no CVA tenderness, no thoracic nor lumbar tenderness and thoraco-lumbar ROM normal Extremity: COMMON NORMALS: normal to inspection, full ROM and capillary refill normal Neuro: COMMON NORMALS: patient oriented x3, CN's II-XII intact bilaterally and moves all extremities SENSORIUM/ORIENTATION: Yes alert Psych: COMMON NORMALS: cooperative, normal affect and activity/motor behavior normal APPEARANCE: Yes unkempt ATTITUDE: Yes calm SPEECH: Yes rapid and Yes slurred THOUGHT CONTENT: No Suicidality present, No Homicidality present and No delusions ATTENTION/CONCENTRATION: Yes attention grossly intact MEMORY/COGNITION: Yes memory grossly intact Skin: COMMON NORMALS: no rashes or lesions noted and no wounds GENERAL SKIN EXAM: no rashes or lesions noted Course Vital Signs: Vital signs: Vital Signs Temperature 97.6 F 09/14/22 16:00 Pulse Rate 78 09/14/22 16:00 Respiratory Rate 18 09/14/22 16:00 Blood Pressure 122/69 09/14/22 16:00 Pulse Oximetry 95 09/14/22 16:00 Oxygen Delivery Me thod Room Air 09/14/22 16:00 MDM - Alcohol Medical Decision Making Patient presents by EMS today intoxicated but pleasant. I did confirm with the patient that he did wish to pursue detox. Lab work was obtained and patient but most of his time here in the emergency department sleeping. He did receive fluids. His lab work is stable though he has a serum alcohol level of 374. I spent quite a long time contacting multiple facilities to try and get him inpatient placement. I called approximately 5 locations which either had no capabilities to admit or, did not answer their phone requiring a message be left for return phone call. Since had been several hours that patient had not had a drink I did reach out to our hospitalist and explained my concerns for him developing detox side effects. They agreed the patient could be put in observation during this time to make sure he did not go into DTs. I spoke with Dr. Sims who agreed to this admission. Patient was transferred to the floor for observation during this time. We will defer treatment and intervention to the hospitalist services at this time. Lab Data 09/14/22 09:13 09/14/22 09:13 Laboratory Results WBC 5.2 10^3/uL (4.0-10.0) 09/14/22 09:13 RBC 3.84 10^6/uL (4.1-5.3) L 09/14/22 09:13 Hgb 12.7 g/dL (11.7-16.6) 09/14/22 09:13 Hct 38.0 % (42.0-52.0) L 09/14/22 09:13 MCV 99.0 fl (80-94) H 09/14/22 09:13 MCH 33.1 pg (28.0-34.0) 09/14/22 09:13 MCHC 33.4 g/dL (30.0-36.0) 09/14/22 09:13 RDW 15.7 % (12.1-15.1) H 09/14/22 09:13 Plt Count 129 10^3/cmm (130-400) L 09/14/22 09:13 MPV 10.1 fL (7.4-10.4) 09/14/22 09:13 Neut % (Auto) 51.0 % 09/14/22 09:13 Lymph % (Auto) 30.6 % 09/14/22 09:13 [place] % (Auto) 13.9 % 09/14/22 09:13 Eos % (Auto) 3.1 % 09/14/22 09:13 Baso % (Auto) 1.2 % 09/14/22 09:13 Neut # (Auto) 2.64 10^3/uL (1.8-7.7) 09/14/22 09:13 Lymph # (Auto) 1.6 10^3/uL (0.8-4.8) 09/14/22 09:13 [place] # (Auto) 0.7 10^3/uL (0.2-0.9) 09/14/22 09:13 Eos # (Auto) 0.2 10^3/uL (0.0-0.8) 09/14/22 09:13 Baso # (Auto) 0.1 10^3/uL (0.0-0.1) 09/14/22 09:13 Nucleated RBC % (auto) 0 % 09/14/22 09:13 Nucleated RBCs # 0.0 /100WBC 09/14/22 09:13 Sodium 141 mmol/L (136-145) 09/14/22 09:13 Potassium 3.7 mmol/L (3.5-5.1) 09/14/22 09:13 Chloride 100 mmol/L (98-107) 09/14/22 09:13 Carbon Dioxide 23 mmol/L (22-29) 09/14/22 09:13 Anion Gap 21.7 (5-19) H 09/14/22 09:13 BUN 15 mg/dL (8-23) 09/14/22 09:13 Creatinine 0.6 mg/dL (0.7-1.2) L 09/14/22 09:13 GFR Calculation Not Reportable 09/14/22 09:13 Glucose 70 mg/dL (65-115) 09/14/22 09:13 Calculated Osmolality 291 mOsm/kg (285-295) 09/14/22 09:13 Calcium 8.8 mg/dL (8.5-10.5) 09/14/22 09:13 Magnesium 1.5 mg/dL (1.7-2.3) L 09/14/22 09:13 Total Bilirubin 0.6 mg/dL (0.15-1.2) 09/14/22 09:13 AST 124 U/L (0-40) H 09/14/22 09:13 ALT 53 U/L (0-41) H 09/14/22 09:13 Alkaline Phosphatase 85 U/L (40-130) 09/14/22 09:13 Total Protein 6.6 g/dL (6.6-8.7) 09/14/22 09:13 Albumin 4.0 g/dL (3.5-5.2) 09/14/22 09:13 Globulin 2.6 g/dL (1.3-4.6) 09/14/22 09:13 Urine Color Yellow (Yellow) 09/14/22 09:55 Urine Appearance Clear (CLEAR) 09/14/22 09:55 Urine pH 5 (5-7) 09/14/22 09:55 Ur Specific [place] 1.005 (1.005-1.030) 09/14/22 09:55 Urine Protein Neg (Negative) 09/14/22 09:55 Urine Glucose (UA) Norm (Normal) 09/14/22 09:55 Urine Ketones Negative (Negative) 09/14/22 09:55 Urine Blood Neg (Negative) 09/14/22 09:55 Urine Nitrate Negative (Negative) 09/14/22 09:55 Urine Bilirubin Neg (Negative) 09/14/22 09:55 Urine Urobilinogen Norm mg/dL (Negative) 09/14/22 09:55 Ur Leukocyte Esterase Negative (Negative) 09/14/22 09:55 Urine Opiates Screen Negative ng/mL (Negative) 09/14/22 09:55 Ur Barbiturates Screen Negative ng/mL (Negative) 09/14/22 09:55 Ur Phencyclidine Scrn Negative ng/mL (Negative) 09/14/22 09:55 Ur Amphetamines Screen Negative ng/mL (Negative) 09/14/22 09:55 U Benzodiazepines Scrn Negative ng/mL (Negative) 09/14/22 09:55 Urine Cocaine Screen Negative ng/mL (Negative) 09/14/22 09:55 U Marijuana (THC) Screen Negative ng/mL (Negative) 09/14/22 09:55 Ethyl Alcohol 374 mg/dL (0-10) H* 09/14/22 09:13 Discharge Plan Discharge Patient Disposition: Placed in Observation Admit Provider: Jorge Sims Clinical Impression: Alcohol abuse, Alcoholic intoxication Coding Level of Care Code ED 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
[2022-09-14 09:26] LABS: Basophils # 0.1 10^3/uL (0.0-0.1); Basophils % 1.2 %; Eosinophils # 0.2 10^3/uL (0.0-0.8); Eosinophils % 3.1 %; Hemoglobin 12.7 g/dL (11.7-16.6); Lymphocytes # 1.6 10^3/uL (0.8-4.8); Lymphocytes % 30.6 %; Mean Corpuscular HGB Conc 33.4 g/dL (30.0-36.0); Mean Corpuscular Hemoglobin 33.1 pg (28.0-34.0); Mean Platelet Volume 10.1 fL (7.4-10.4); Monocytes # 0.7 10^3/uL (0.2-0.9); Monocytes % 13.9 %; Neutrophils # 2.64 10^3/uL (1.8-7.7); Nucleated Red Blood Cells % 0 %; Platelet Count 129 10^3/cmm (130-400); Red Blood Count 3.84 10^6/uL (4.1-5.3); Red Cell Distribution Width 15.7 % (12.1-15.1); White Blood Count 5.2 10^3/uL (4.0-10.0)
[2022-09-14] MEDS: sodium chloride 0.9% 1,000 ML 999 ML IV (09:44)
[2022-09-14 09:45] LABS: Alanine Aminotransferase 53 U/L (0-41); Alkaline Phosphatase 85 U/L (40-130); Anion Gap 21.7 (5-19); Aspartate Amino Transferase 124 U/L (0-40); Blood Urea Nitrogen 15 mg/dL (8-23); Calcium 8.8 mg/dL (8.5-10.5); Carbon Dioxide 23 mmol/L (22-29); Chloride 100 mmol/L (98-107); Globulin 2.6 g/dL (1.3-4.6); Glucose 70 mg/dL (65-115); Magnesium 1.5 mg/dL (1.7-2.3); Osmolality Calculated 291 mOsm/kg (285-295); Potassium 3.7 mmol/L (3.5-5.1); Sodium 141 mmol/L (136-145); Total Bilirubin 0.6 mg/dL (0.15-1.2); Total Protein 6.6 g/dL (6.6-8.7)
[2022-09-14 10:05] LABS: Alcohol Level 374 mg/dL (0-10)
[2022-09-14 10:08] LABS: Add Urine Microscopic? NO; Bilirubin Urine Neg (Negative); Blood Urine Neg (Negative); Charge for UA Resulting for Rev; Glucose Urine UA Norm (Normal); Ketones Urine Negative (Negative); Leukocyte Esterase Urine Negative (Negative); Nitrate Urine Negative (Negative); Protein Urine Neg (Negative); Specific Gravity, Urine 1.005 (1.005-1.030); Urine Appearance Clear (CLEAR); Urine Color Yellow (Yellow); Urobilinogen Urine Norm (Negative); pH Urine 5 (5-7)
[2022-09-14 10:17] LABS: Amphetamines Screen Urine Negative (Negative); Barbiturates Screen Urine Negative (Negative); Benzodiazepines Screen Urine Negative (Negative); Cocaine Screen Urine Negative (Negative); Opiate Screen Urine Negative (Negative); PCP Screen Urine Negative (Negative); THC Screen Urine Negative (Negative)
[2022-09-14] MEDS: sodium chloride 0.9% 1,000 ML 100 ML IV (17:29)
--- NOTE | 2022-09-14 20:19 | PM.HP ---
Providers/Chief Complaint Admitting Physician: Jorge Sims MD Chief Complaint: ETOH WANTS DETOX History of Present Illness Gerardo Millan is a 72 year old male with a past medical hx significant for alcohol use disorder who presents to the ED via EMS with acute alcohol intoxication. His ETOH level in ED is 374. He states he wants to detox and then pursue rehab. These statements are made under the influence of alcohol. He reports bilateral lower extremity pain which seems to be long standing. Otherwise denies other new complaints. Denies alleviating or aggravating factors. Denies fevers, chills, nausea or emesis. Patient has a known hx of alcoholism. He reportedly drinks hard liquor. It is unclear how long ago his last ETOH intake was. He initally reported it was yesterday however EMS found him with alcohol in hand and he is intoxicated. Review of Systems Narrative: A complete review of systems was obtained and found to be negative except for those listed in HPI. Medications/Allergies Home Medications Medication Instructions Recorded Confirmed Last Taken Type aspirin 81 mg tablet,delayed 162 mg PO QAM 10/18/20 09/14/22 09/14/22 History release (Adult Aspirin Regimen) nitroglycerin 0.4 mg sublingual 0.4 mg sublingual Q5M PRN Chest 10/18/20 09/14/22 Unknown History tablet (Nitrostat) Pain albuterol sulfate 90 mcg/actuation 2 puff inhalation Q6H PRN 09/14/22 09/14/22 Unknown History aerosol inhaler Shortness Of Breath atorvastatin 20 mg tablet 20 mg PO QAM 09/14/22 09/14/22 09/14/22 History diphenhydramine HCl 25 mg tablet 25 mg PO TID PRN Allergy Symptoms 09/14/22 09/14/22 Unknown History (Benadryl Allergy) Allergies Allergy/AdvReac Type Severity Reaction Status Date / Time corn Allergy ADR-Nausea Verified 05/16/22 12:59 [place] Allergy Uknown Verified 05/16/22 12:59 [place] Allergy ALGY-Rash Verified 05/16/22 12:59 Penicillins Allergy ALGY-Difficulty Verified 05/16/22 12:59 Breathing PFSH Acute PFSH: Medical History Acute dehydration Alcoholism Anal cancer Anxiety Cholelithiasis COPD (chronic obstructive pulmonary disease) CVA (cerebral vascular accident) Depression Dizziness DVT (deep venous thrombosis) Hypertension Hypomagnesemia Myocardial infarction Pancreatitis Status post chemoradiation Vomiting Surgical History History of ankle surgery History of tonsillectomy Hx of cataract extraction Hx of non-cataract eye surgery Status post colonoscopy Status post laparoscopic cholecystectomy (11/13/20) Family History Other Family history non-contributory Social History Alcohol intake: current Alcohol intake frequency: 3 or more drinks per day Substance/Drug Use: never Household members: family Housing: House Vitals/I&O/Wt Last Vital Signs Temp 97.6 F 09/14/22 16:00 Pulse 78 09/14/22 16:00 Resp 18 09/14/22 16:00 BP 122/69 09/14/22 16:00 Pulse Ox 95 09/14/22 16:00 O2 Del Method Room Air 09/14/22 16:00 09/14/22 09/14/22 09/14/22 06:59 14:59 22:59 Intake Total 1000 / 1000 240 / 1240 Balance 1000 / 1000 240 / 1240 Weight last 48 hrs Weight 69.4 kg Physical Exam Narrative: GENERAL: The patient is awake. Alert. Frail appearing. HEENT: Normocephalic, atraumatic. Extraocular muscles intact. Temporal wasting. NECK: No JVD. CARDIOVASCULAR: Normal S1 and S2.? No murmurs, rubs, or gallops. No peripheral edema. RESPIRATORY: Clear to auscultation bilaterally. No wheezing. No rales. No rhonchi. ABDOMEN: Soft. Not tender. Not distended.? Bowel sounds present. No guarding. EXTREMITIES: No cyanosis.? No clubbing. Poor muscular developement. SKIN: No skin rash.? No jaundice. CENTRAL NERVOUS SYSTEM:? Moves all 4 extremities. No myoclonus. Data 09/14/22 09:13 09/14/22 09:13 A&P Assessment and plan (1) Alcoholic intoxication: Alcohol intoxication w/ alcohol use disorder with alcohol abuse Requesting detox and rehab Plan to detox, rehab will likely be outpt CM consult IV fluids CIWA Thiamine, folic acid, vitamin Seizure precautions Counseled on ETOH cessation and treatment options Consider naltrexone prior or at discharge (2) Peripheral vascular disease: Continue ASA Continue statin Plan DVT ppx: Low risk for now, pt ambulating Code: Full Attestations Medical Necessity Statement*: Pt presents intoxicated requesting assistance for detox and withdrawal with expected course not to cross two midnights. Coding Level of Care Code Acute Code for [facility] Diagnoses Alcoholic intoxication F10.929 Peripheral vascular disease I73.9
[2022-09-15] MEDS: sodium chloride 0.9% 1,000 ML 100 ML IV (03:01)
[2022-09-15 03:40] VITALS: BP 135/74; PULSE 53; RESP 17; TEMP 36.9; O2SAT 94
[2022-09-15] MEDS: atorvastatin 40 mg Tablet 20 MG PO (05:05)
[2022-09-15] MEDS: aspirin 81 mg EC Tablet 162 MG PO (05:05)
[2022-09-15 08:00] VITALS: BP 153/78; PULSE 60; RESP 16; TEMP 36.9; O2SAT 96
[2022-09-15] MEDS: folic acid 1 mg Tablet PO (09:11)
[2022-09-15] MEDS: multivitamin therapeutic Tablet 1 TAB PO (09:11)
[2022-09-15] MEDS: thiamine 100 mg Tablet PO (09:11)
[2022-09-15 12:00] VITALS: BP 126/72; PULSE 58; TEMP 36.6; O2SAT 95
--- NOTE | 2022-09-15 12:15 | PM.PN ---
Subjective Subjective: Patient has mild resting tremors Patient stating this is chronic nothing new No active signs of severe ventricle withdrawal Patient is planned to go home tomorrow, he has been given resources to use for his alcohol dependency Vitals/I&O/Wt Last Vital Signs Temp 98.5 F 09/15/22 08:00 Pulse 60 09/15/22 08:00 Resp 16 09/15/22 08:00 BP 153/78 09/15/22 08:00 Pulse Ox 96 09/15/22 08:00 O2 Del Method Room Air 09/15/22 08:00 09/14/22 09/15/22 09/15/22 22:59 06:59 14:59 Intake Total 240 / 1240 1153.333 / 2393.333 360 / 360 Output Total 200 / 200 700 / 900 Balance 40 / 1040 453.333 / 1493.333 360 / 360 Weight last 48 hrs Weight 69.4 kg Physical Exam Narrative: Awake and alert Resting tremors No active signs of headache or hallucinations S1, S2 abdomen soft Currently on room air Nonfocal exam GCS 15 Pleasant and cooperative Data 09/14/22 09:13 09/14/22 09:13 A&P Assessment and plan (1) Alcoholic intoxication: (2) Peripheral vascular disease: (3) Alcohol withdrawal: (4) Alcoholic ketoacidosis: (5) Depression: (6) Hypomagnesemia: (7) Generalized weakness: Plan Mild resting tremors which is chronic Alcohol intoxication Continue thiamine folic acid and benzodiazepines Plan to discharge him tomorrow Resources has been provided for alcohol cessation Patient is full code Regular diet Hypomagnesemia: Repleted No active signs of leg pain No active chest pain or shortness of breath Attestations Medical Necessity Statement*: Discharge tomorrow Diagnoses Alcoholic intoxication F10.929 Peripheral vascular disease I73.9 Alcohol withdrawal F10.939 Alcoholic ketoacidosis E87.29 Depression F32.9 Hypomagnesemia E83.42 Generalized weakness R53.1
[2022-09-15 16:00] VITALS: BP 114/69; PULSE 61; RESP 16; TEMP 36.8; O2SAT 94
[2022-09-15] MEDS: magnesium oxide 400 mg tablet PO (17:35)
[2022-09-15 19:14] VITALS: BP 113/66; PULSE 53; RESP 16; TEMP 36.6; O2SAT 95
[2022-09-16] VITALS: BP 111/62; PULSE 59; RESP 14; TEMP 36.6; O2SAT 96
[2022-09-16 03:45] VITALS: BP 126/74; PULSE 55; RESP 15; TEMP 36.9; O2SAT 96
[2022-09-16] MEDS: aspirin 81 mg EC Tablet 162 MG PO (06:34)
[2022-09-16] MEDS: atorvastatin 40 mg Tablet 20 MG PO (06:34)
[2022-09-16 07:58] VITALS: BP 129/81; PULSE 53; RESP 18; TEMP 36.9; O2SAT 97
[2022-09-16] MEDS: magnesium oxide 400 mg tablet PO (08:47)
[2022-09-16] MEDS: folic acid 1 mg Tablet PO (08:47)
[2022-09-16] MEDS: thiamine 100 mg Tablet PO (08:47)
[2022-09-16] MEDS: multivitamin therapeutic Tablet 1 TAB PO (08:47)
--- NOTE | 2022-09-16 09:16 | ECG_ITS ---
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 Measurements Intervals [place] Rate: 64 P: 54 AL: 133 QRS: -5 QRSD: 86 T: 40 QT: 431 QTc: 445 Interpretive Statements SINUS RHYTHM LOW QRS VOLTAGE IN PRECORDIAL LEADS [QRS DEFLECTION < 1.0 mV IN CHEST LEADS] MINIMAL VOLTAGE CRITERIA FOR LVH, CONSIDER NORMAL VARIANT [MEETS CRITERIA IN ONE OF: R(aVL), S(V1), R(V5), R(V5/V6)+S(V1)] Compared to ECG 03/31/2022 07:43:32 Low QRS voltage now present Sinus bradycardia no longer present Prolonged QT interval no longer present Electronically Signed On 09-16-2022 17:25:19 CDT by Jhonathan Fernandez M.D. [email or web address]
--- NOTE | 2022-09-16 10:46 | P.DS_ITS ---
Discharge Providers Date of Admission: 09/14/22 13:48 Date of Discharge: September 16, 2022 Attending Provider at Admission: Jorge Sims MD Attending Provider at Discharge: Michael Osborn MD Diagnoses at Discharge Discharge Diagnosis (1) Alcoholic intoxication: Status: Acute (2) Peripheral vascular disease: Status: Acute (3) Alcohol withdrawal: Status: Acute (4) Alcoholic ketoacidosis: Status: Acute (5) Depression: Status: Acute (6) Hypomagnesemia: Status: Acute (7) Generalized weakness: Status: Acute Reason for Visit Reason for Visit: ETOH WANTS DETOX Hospital Course Hospital Course 72-year-old male who was admitted to the hospital for alcohol detox, patient lives with a partner at home, he has been giving resources to cope with his alcohol dependence, during hospitalization he did not show any signs of alcohol withdrawal he was kept on CIWA protocol along thiamine and folic acid, at the time of discharge we will give him benzodiazepine tapering regimen, bradycardia noted during hospitalization, EKG showed sinus rhythm, magnesium repleted. Patient does not have any medical DPOA Patient is denying suicidal or homicidal ideation, no acute indication for medical treatment at this point for comorbid conditions, patient is able to call 911 if he needs another visit to the ER in case of further worsening, he is able to make decision for himself, patient is motivated to quit alcohol Physical Exam Narrative: Patient able to walk Nonfocal neuro exam GCS 15 No severe signs of alcohol withdrawal Awake and alert Able to make decision for himself Discharge Data Studies Completed and Pending Laboratory Results WBC 5.2 10^3/uL (4.0-10.0) 09/14/22 09:13 RBC 3.84 10^6/uL (4.1-5.3) L 09/14/22 09:13 Hgb 12.7 g/dL (11.7-16.6) 09/14/22 09:13 Hct 38.0 % (42.0-52.0) L 09/14/22 09:13 MCV 99.0 fl (80-94) H 09/14/22 09:13 MCH 33.1 pg (28.0-34.0) 09/14/22 09:13 MCHC 33.4 g/dL (30.0-36.0) 09/14/22 09:13 RDW 15.7 % (12.1-15.1) H 09/14/22 09:13 Plt Count 129 10^3/cmm (130-400) L 09/14/22 09:13 MPV 10.1 fL (7.4-10.4) 09/14/22 09:13 Neut % (Auto) 51.0 % 09/14/22 09:13 Lymph % (Auto) 30.6 % 09/14/22 09:13 [place] % (Auto) 13.9 % 09/14/22 09:13 Eos % (Auto) 3.1 % 09/14/22 09:13 Baso % (Auto) 1.2 % 09/14/22 09:13 Neut # (Auto) 2.64 10^3/uL (1.8-7.7) 09/14/22 09:13 Lymph # (Auto) 1.6 10^3/uL (0.8-4.8) 09/14/22 09:13 [place] # (Auto) 0.7 10^3/uL (0.2-0.9) 09/14/22 09:13 Eos # (Auto) 0.2 10^3/uL (0.0-0.8) 09/14/22 09:13 Baso # (Auto) 0.1 10^3/uL (0.0-0.1) 09/14/22 09:13 Nucleated RBC % (auto) 0 % 09/14/22 09:13 Nucleated RBCs # 0.0 /100WBC 09/14/22 09:13 Sodium 141 mmol/L (136-145) 09/14/22 09:13 Potassium 3.7 mmol/L (3.5-5.1) 09/14/22 09:13 Chloride 100 mmol/L (98-107) 09/14/22 09:13 Carbon Dioxide 23 mmol/L (22-29) 09/14/22 09:13 Anion Gap 21.7 (5-19) H 09/14/22 09:13 BUN 15 mg/dL (8-23) 09/14/22 09:13 Creatinine 0.6 mg/dL (0.7-1.2) L 09/14/22 09:13 GFR Calculation Not Reportable 09/14/22 09:13 Glucose 70 mg/dL (65-115) 09/14/22 09:13 Calculated Osmolality 291 mOsm/kg (285-295) 09/14/22 09:13 Calcium 8.8 mg/dL (8.5-10.5) 09/14/22 09:13 Magnesium 1.5 mg/dL (1.7-2.3) L 09/14/22 09:13 Total Bilirubin 0.6 mg/dL (0.15-1.2) 09/14/22 09:13 AST 124 U/L (0-40) H 09/14/22 09:13 ALT 53 U/L (0-41) H 09/14/22 09:13 Alkaline Phosphatase 85 U/L (40-130) 09/14/22 09:13 Total Protein 6.6 g/dL (6.6-8.7) 09/14/22 09:13 Albumin 4.0 g/dL (3.5-5.2) 09/14/22 09:13 Globulin 2.6 g/dL (1.3-4.6) 09/14/22 09:13 Urine Color Yellow (Yellow) 09/14/22 09:55 Urine Appearance Clear (CLEAR) 09/14/22 09:55 Urine pH 5 (5-7) 09/14/22 09:55 Ur Specific [place] 1.005 (1.005-1.030) 09/14/22 09:55 Urine Protein Neg (Negative) 09/14/22 09:55 Urine Glucose (UA) Norm (Normal) 09/14/22 09:55 Urine Ketones Negative (Negative) 09/14/22 09:55 Urine Blood Neg (Negative) 09/14/22 09:55 Urine Nitrate Negative (Negative) 09/14/22 09:55 Urine Bilirubin Neg (Negative) 09/14/22 09:55 Urine Urobilinogen Norm mg/dL (Negative) 09/14/22 09:55 Ur Leukocyte Esterase Negative (Negative) 09/14/22 09:55 Urine Opiates Screen Negative ng/mL (Negative) 09/14/22 09:55 Ur Barbiturates Screen Negative ng/mL (Negative) 09/14/22 09:55 Ur Phencyclidine Scrn Negative ng/mL (Negative) 09/14/22 09:55 Ur Amphetamines Screen Negative ng/mL (Negative) 09/14/22 09:55 U Benzodiazepines Scrn Negative ng/mL (Negative) 09/14/22 09:55 Urine Cocaine Screen Negative ng/mL (Negative) 09/14/22 09:55 U Marijuana (THC) Screen Negative ng/mL (Negative) 09/14/22 09:55 Ethyl Alcohol 374 mg/dL (0-10) H* 09/14/22 09:13 Vitals Last Vital Signs Temp 98.4 F 09/16/22 07:58 Pulse 53 L 09/16/22 07:58 Resp 18 09/16/22 07:58 BP 129/81 09/16/22 07:58 Pulse Ox 97 09/16/22 07:58 O2 Del Method Room Air 09/16/22 03:45 Discharge Plan Discharge Patient Disposition: Home Condition: Stable Prescriptions: New chlordiazepoxide HCl 25 mg capsule 25 mg PO BID Qty: 5 0RF Rx Instructions: Take 25 mg every 12 hours day 1 Then take 25 mg at bedtime day 2,3,4 and then stop thiamine mononitrate (vit B1) [Vitamin B-1 (mononitrate)] 100 mg Tablet 100 mg PO DAILY Qty: 60 0RF naltrexone 50 mg tablet 25 mg PO DAILY Qty: 14 0RF folic acid 1 mg Tablet 1 mg PO DAILY Qty: 30 0RF Continued aspirin [Adult Aspirin Regimen] 81 mg tablet,delayed release (DR/EC) 162 mg PO QAM nitroglycerin [Nitrostat] 0.4 mg tablet, sublingual 0.4 mg sublingual Q5M PRN (Reason: Chest Pain) Rx Instructions: do not exceed 3 doses per episode atorvastatin 20 mg tablet 20 mg PO QAM Benadryl Allergy 25 mg Tablet 25 mg PO TID PRN (Reason: Allergy Symptoms) albuterol sulfate 90 mcg/actuation HFA aerosol inhaler 2 puff INHALATION Q6H PRN (Reason: Shortness Of Breath) Discharge Orders: Discharge Order (Routine); Ordered 09/16/22 Ordered By: Michael Osborn Referrals: [facility] [Other] (?Follow up as a walk in at [facility], walk in hours are Friday-Friday from 7:30AM-3:00PM, first come, first seen. Once you do this assessment you will be referred for appropriate services.) [facility] [Other] (Open 7 days a week from 8am - 6pm ) Patient Instructions: Opioid Safety Discharge Attestations Time Spent in Discharge Care*: greater than 30 min Status at Discharge: Cognitive status at discharge: cognitively intact , Behavioral status at discharge: cooperative , Quality Metrics Clinical Quality Measures [ No reported AMI, CVA or VTE this stay] Coding Level of Care Code Acute Code for [facility] Diagnoses Alcoholic intoxication F10.929 Peripheral vascular disease I73.9 Alcohol withdrawal F10.939 Alcoholic ketoacidosis E87.29 Depression F32.9 Hypomagnesemia E83.42 Generalized weakness R53.1
[2022-09-16 11:27] VITALS: BP 126/74; PULSE 53; RESP 16; TEMP 36.8; O2SAT 97
--- NOTE | 2022-09-16 12:57 | PC.NURSE ---
patient verbalized understanding of discharge instructions, home medications, and follow up appointments. Pts home medications were set up in a pill master planner by pharmacy. IV removed- pt tolerated well. patient waiting for medicaid ride
[2022-09-16 15:21] VITALS: BP 147/84; PULSE 59; RESP 16; TEMP 36.5; O2SAT 95
[2022-09-16 15:45] VITALS: BP 147/84; PULSE 59; RESP 16; TEMP 36.5; O2SAT 95
== END 2022-09-16 15:46 | disposition home or self-care (01) ==
LOC: ER 14:05 → MEDSURG 15:03
PROVIDERS: Admitting Provider Internal Medicine; Emergency Provider Physician Assistant; PCP Family Medicine; Visit Provider Internal Medicine
DX: F10.129 Alcohol abuse with intoxication, unspecified (principal); Y90.8 Blood alcohol level of 240 mg/100 ml or more; I73.9 Peripheral vascular disease, unspecified; R00.1 Bradycardia, unspecified; E83.42 Hypomagnesemia; Z79.82 Long term (current) use of aspirin; I10 Essential (primary) hypertension; J44.9 Chronic obstructive pulmonary disease, unspecified; Z79.899 Other long term (current) drug therapy
CPT/HCPCS: 80053; 80306; 80307; 81003; 83735; 85025; 93005; 96360; 99285; G0378; J7030

== ENCOUNTER → 2022-10-03 11:36 | Outpatient (BNVA) | payer MEDICARE, MEDICAID, SELFPAY | PROVIDERS: PCP Family Medicine; Visit Provider Internal Medicine Cardiovascular Disease | DX: R07.9 Chest pain, unspecified (principal); E78.5 Hyperlipidemia, unspecified; I25.2 Old myocardial infarction; Z86.73 Personal history of transient ischemic attack (TIA), and cerebral infarction without residual deficits | CPT/HCPCS: 93005; 99204 ==

== ENCOUNTER 2022-11-19 16:15 | Emergency (ER) | payer MEDICARE, MEDICAID, SELFPAY ==
--- NOTE | 2022-11-19 16:18 | XR_ITS ---
WS: [id number] EXAMINATION: XR chest 1V portable [id number] REASON FOR EXAM: screen COMPARISON: 03/28/2022 ORDER DATE: 11/19/2022 4:22 PM TECHNIQUE: A single, portable frontal chest x-ray was obtained. X-RAY FINDINGS: The lungs are clear. Pleural spaces are clear. No pleural effusions or pneumothorax. Cardiomediastinal silhouette is unremarkable except for aortic ectasia. No evidence for pulmonary duarte ma. Soft tissue and osseous structures are unremarkable with the exception of chronic rib fractures. No tubes or lines are present. IMPRESSION: Unremarkable frontal portable chest x-ray.
[2022-11-19 16:19] VITALS: BP 128/70; PULSE 85; RESP 18; TEMP 36.8; O2SAT 97; BMI 17.6
--- NOTE | 2022-11-19 16:40 | ED.C_ITS ---
Documented by User: Emmanuel Murray DO 11/20/22 05:55 HPI - Psych General: Chief Complaint: Psychiatric Symptoms Stated Complaint: 96 hold Time Seen by Provider: 11/19/22 16:17 Source: patient Mode of arrival: ambulatory History of Present Illness: 72-year-old male brought in by calcaneus chair short run and 96-hour hold from his family. 96-hour hold affidavit states he drinks excessively has been losing weight [place] has been taking care of himself. Patient denies any suicidal homicidal ideation. He states he drinks 2-3 vodka mixers per day. He has a history of cancer he states he has not been eating much lately because it is hot and he just does not much of an appetite he is awake and alert coherent cooperative. He adamantly denies suicidal or homicidal ideation. Interestingly patient was little bit upset because he knew they were coming to take him for an evaluation and he felt that they were late. He states he last drank several hours ago. He is mildly annoyed stating that both him and his brother drink vodka on a daily basis he feels like his brother drinks significantly more than him but justifies it by saying that he has a higher tolerance because he is bigger man. Associated symptoms: Deny auditory hallucinations, visual hallucinations, delusions, depression, homicidal ideation, suicidal ideation or racing thoughts Review of Systems Const: Denies: fever(s), chills, fatigue or malaise ENMT: Denies: throat pain, ear or mastoid pain, nasal discharge or nasal congestion Card: Denies: chest pain, edema, dyspnea on exertion or orthopnea Resp: Denies: dyspnea, productive cough or non-productive cough GI: Denies: abdominal pain, nausea or vomiting : Denies: flank pain, dysuria, urinary frequency or urinary urgency Skin/Breast: Denies: rash or pruritus Psych: Denies: depression, visual hallucinations, auditory hallucinations, suicidal ideation or homicidal ideation [facility] ED PFSH: Medical History Acute dehydration Alcohol abuse Alcohol withdrawal Alcoholic intoxication Alcoholic ketoacidosis Alcoholism Anal cancer Anxiety Cholelithiasis COPD (chronic obstructive pulmonary disease) CVA (cerebral vascular accident) Depression Dizziness DVT (deep venous thrombosis) Generalized weakness Hypertension Hypomagnesemia Myocardial infarction Pancreatitis Peripheral vascular disease Status post chemoradiation Vomiting Surgical History History of ankle surgery History of tonsillectomy Hx of cataract extraction Hx of non-cataract eye surgery Status post colonoscopy Status post laparoscopic cholecystectomy (11/13/20) Family History Other Family history non-contributory Social History Alcohol intake: current Alcohol intake frequency: 3 or more drinks per day Substance/Drug Use: never Household members: family Housing: House Physical Exam Const: GENERAL APPEARANCE: cooperative and comfortable ORIENTATIO N/CONSCIOUSNESS: Yes awake, Yes oriented to person, Yes oriented to place and Yes oriented to time HENMT: COMMON NORMALS: normocephalic, atraumatic and hearing grossly normal bilaterally HEAD & SCALP: normocephalic and atraumatic Resp: COMMON NORMALS: normal respiratory effort, No retractions, No use of accessory muscles and clear to auscultation bilaterally AUSCULTATION: clear to auscultation bilaterally Cardio: COMMON NORMALS: regular rate, regular rhythm and No murmurs present (Cardio) RATE: regular rate RHYTHM: regular rhythm Extremity: COMMON NORMALS: normal to inspection, capillary refill normal, no clubbing, cyanosis or edema, no calf tenderness and no pedal edema Neuro: SENSORIUM/ORIENTATION: Yes oriented to person, Yes oriented to place and Yes oriented to time Psych: THOUGHT CONTENT: No delusions Skin: COMMON NORMALS: no rashes or lesions noted GENERAL SKIN EXAM: no rashes or lesions noted Course Vital Signs: Vital signs: Vital Signs Temperature 98.3 F 11/19/22 23:21 Pulse Rate 85 11/19/22 23:21 Respiratory Rate 18 11/19/22 23:21 Blood Pressure 128/70 11/19/22 23:21 Pulse Oximetry 97 11/19/22 23:21 Oxygen Delivery Me thod Room Air 11/19/22 16:42 MDM - Psych Medical Decision Making Patient reviewed and evaluated reviewed 96-hour hold after interviewing patient while he does have substance abuse problems admission to psychiatry will not significantly benefit him in my opinion. Have asked Dr. Abebe to see the patient he is coming to the department to see him. Care signed out to Dr. Beasley at change of shift. See final notes for diagnosis and disposition. Patient presents here with history of alcohol abuse he is placed in a 96-hour hold as family states that they felt he had drank too much and was concerned about his wellbeing patient here is had no SI or HI he was seen by psychiatrist Dr. Abebe who agrees that he is not endings of psychiatric admission at this point and will rescind his 96-hour hold will discharge at this time he is follow-up with PCP and return if worsening. Lab Data 11/19/22 14:42 11/19/22 14:42 Laboratory Results WBC 7.12 10^3/uL (3.29-11.43) 11/19/22 14:42 RBC 3.92 10^6/uL (3.85-5.65) 11/19/22 14:42 Hgb 12.90 g/dL (11.27-16.99) 11/19/22 14:42 Hct 38.6 % (37-53) 11/19/22 14:42 MCV 98.5 fl (82-101) 11/19/22 14:42 MCH 32.9 pg (27-33) 11/19/22 14:42 MCHC 33.4 g/dL (30-55) 11/19/22 14:42 RDW 14.7 % (12.1-15.1) 11/19/22 14:42 Plt Count 147 10^3/cmm (157-399) L 11/19/22 14:42 MPV 10.4 fL (7.4-10.4) 11/19/22 14:42 Neut % (Auto) 66.1 % 11/19/22 14:42 Lymph % (Auto) 20.4 % 11/19/22 14:42 [place] % (Auto) 11.7 % 11/19/22 14:42 Eos % (Auto) 0.8 % 11/19/22 14:42 Baso % (Auto) 0.7 % 11/19/22 14:42 Neut # (Auto) 4.71 10^3/uL (1.8-7.7) 11/19/22 14:42 Lymph # (Auto) 1.5 10^3/uL (0.8-4.8) 11/19/22 14:42 [place] # (Auto) 0.8 10^3/uL (0.2-0.9) 11/19/22 14:42 Eos # (Auto) 0.1 10^3/uL (0.0-0.8) 11/19/22 14:42 Baso # (Auto) 0.1 10^3/uL (0.0-0.1) 11/19/22 14:42 Nucleated RBC % (auto) 0 % 11/19/22 14:42 Nucleated RBCs # 0.0 /100WBC 11/19/22 14:42 Sodium 139 mmol/L (136-145) 11/19/22 14:42 Potassium 4.3 mmol/L (3.5-5.1) 11/19/22 14:42 Chloride 99 mmol/L (98-107) 11/19/22 14:42 Carbon Dioxide 20 mmol/L (22-29) L 11/19/22 14:42 Anion Gap 24.3 (5-19) H 11/19/22 14:42 BUN 17 mg/dL (8-23) 11/19/22 14:42 Creatinine 0.6 mg/dL (0.7-1.2) L 11/19/22 14:42 GFR Calculation Not Reportable 11/19/22 14:42 Glucose 86 mg/dL (65-115) 11/19/22 14:42 Calculated Osmolality 289 mOsm/kg (285-295) 11/19/22 14:42 Calcium 8.9 mg/dL (8.5-10.5) 11/19/22 14:42 Total Bilirubin 1.5 mg/dL (0.15-1.2) H 11/19/22 14:42 AST 69 U/L (0-40) H 11/19/22 14:42 ALT 28 U/L (0-41) 11/19/22 14:42 Alkaline Phosphatase 76 U/L (40-130) 11/19/22 14:42 Total Protein 6.5 g/dL (6.6-8.7) L 11/19/22 14:42 Albumin 3.8 g/dL (3.5-5.2) 11/19/22 14:42 Globulin 2.7 g/dL (1.3-4.6) 11/19/22 14:42 TSH 1.32 uIU/mL (0.27-4.20) 11/19/22 14:42 Urine Color Magda (Yellow) 11/19/22 17:30 Urine Appearance Clear (CLEAR) 11/19/22 17:30 Urine pH 5 (5-7) 11/19/22 17:30 Ur Specific [place] 1.010 (1.005-1.030) 11/19/22 17:30 Urine Protein Trace (Negative) 11/19/22 17:30 Urine Glucose (UA) Norm (Normal) 11/19/22 17:30 Urine Ketones 1+ (Negative) H 11/19/22 17:30 Urine Blood 2+ (Negative) H 11/19/22 17:30 Urine Nitrate Negative (Negative) 11/19/22 17:30 Urine Bilirubin 1+ (Negative) H 11/19/22 17:30 Urine Urobilinogen 4 mg/dL (Negative) H 11/19/22 17:30 Ur Leukocyte Esterase Negative (Negative) 11/19/22 17:30 Urine RBC 5-10 /hpf (0-2) H 11/19/22 17:30 Urine WBC 0-4 /hpf (0-5) H 11/19/22 17:30 Ur Squamous Epith Cells 0-4 /hpf (0-5) H 11/19/22 17:30 Amorphous Sediment Not Reportable 11/19/22 17:30 Urine Bacteria None /hpf (NONE) 11/19/22 17:30 Urine Mucus 4+ /hpf 11/19/22 17:30 Salicylates 2.2 mg/dL (3-10) L 11/19/22 14:42 Urine Opiates Screen Negative ng/mL (Negative) 11/19/22 17:30 Acetaminophen < 5.0 ug/mL (10-30) L 11/19/22 14:42 Ur Barbiturates Screen Negative ng/mL (Negative) 11/19/22 17:30 Ur Phencyclidine Scrn Negative ng/mL (Negative) 11/19/22 17:30 Ur Amphetamines Screen Negative ng/mL (Negative) 11/19/22 17:30 U Benzodiazepines Scrn Negative ng/mL (Negative) 11/19/22 17:30 Urine Cocaine Screen Negative ng/mL (Negative) 11/19/22 17:30 U Marijuana (THC) Screen Negative ng/mL (Negative) 11/19/22 17:30 Ethyl Alcohol 191 mg/dL (0-10) H 11/19/22 14:42 SARS-CoV-2 Ag (Rapid) negative (Negative) 11/19/22 19:34 Discharge Plan Discharge Patient Disposition: Home Clinical Impression: Alcohol abuse Condition: Stable Prescriptions: No Action aspirin [Adult Aspirin Regimen] 81 mg tablet,delayed release (DR/EC) 162 mg PO QAM nitroglycerin [Nitrostat] 0.4 mg tablet, sublingual 0.4 mg sublingual Q5M PRN (Reason: Chest Pain) Rx Instructions: do not exceed 3 doses per episode mecobalamin (vitamin B12) 1,000 mcg tablet,chewable 1,000 mcg PO DAILY metoprolol tartrate 25 mg tablet 25 mg PO BID Qty: 60 5RF atorvastatin 20 mg tablet 20 mg PO QAM Benadryl Allergy 25 mg Tablet 25 mg PO TID PRN (Reason: Allergy Symptoms) albuterol sulfate 90 mcg/actuation HFA aerosol inhaler 2 puff INHALATION Q6H PRN (Reason: Shortness Of Breath) folic acid 1 mg Tablet 1 mg PO DAILY Qty: 30 0RF Vitamin B-1 (mononitrate) 100 mg Tablet 100 mg PO DAILY Qty: 60 0RF naltrexone 50 mg tablet 25 mg PO DAILY Qty: 14 0RF chlordiazepoxide HCl 25 mg capsule 25 mg PO BID Qty: 5 0RF Rx Instructions: Take 25 mg every 12 hours day 1 Then take 25 mg at bedtime day 2,3,4 and then stop Discharge Orders: Discharge ED (Routine); Ordered 11/19/22 Ordered By: Jony Beasley Referrals: Medardo Bowers MD [Primary Care Provider] - 1-3 days Discharge Diet: Advance as tolerated Discharge Activity: Resume usual activity Patient Instructions: Abuse of Alcohol (ED) Coding Level of Care Code ED Science Interpreter for Chg Fwd Documented by User: Jony Beasley MD 11/19/22 21:47 HPI - Psych General: Chief Complaint: Psychiatric Symptoms Stated Complaint: 96 hold Time Seen by Provider: 11/19/22 16:17 PFSH ED PFSH: Medical History Acute dehydration Alcohol abuse Alcohol withdrawal Alcoholic intoxication Alcoholic ketoacidosis Alcoholism Anal cancer Anxiety Cholelithiasis COPD (chronic obstructive pulmonary disease) CVA (cerebral vascular accident) Depression Dizziness DVT (deep venous thrombosis) Generalized weakness Hypertension Hypomagnesemia Myocardial infarction Pancreatitis Peripheral vascular disease Status post chemoradiation Vomiting Surgical History History of ankle surgery History of tonsillectomy Hx of cataract extraction Hx of non-cataract eye surgery Status post colonoscopy Status post laparoscopic cholecystectomy (11/13/20) Family History Other Family history non-contributory Social History Alcohol intake: current Alcohol intake frequency: 3 or more drinks per day Substance/Drug Use: never Household members: family Housing: House Course Vital Signs: Vital signs: Vital Signs Temperature 98.3 F 11/19/22 23:21 Pulse Rate 85 11/19/22 23:21 Respiratory Rate 18 11/19/22 23:21 Blood Pressure 128/70 11/19/22 23:21 Pulse Oximetry 97 11/19/22 23:21 Oxygen Delivery Me thod Room Air 11/19/22 16:42 MDM - Psych Medical Decision Making Patient presents here with history of alcohol abuse he is placed in a 96-hour hold as family states that they felt he had drank too much and was concerned about his wellbeing patient here is had no SI or HI he was seen by psychiatrist Dr. Abebe who agrees that he is not endings of psychiatric admission at this point and will rescind his 96-hour hold will discharge at this time he is follow-up with PCP and return if worsening. Medical Records I reviewed the patient's medical records. Lab Data I reviewed the patient's lab results. 11/19/22 14:42 11/19/22 14:42 Laboratory Results WBC 7.12 10^3/uL (3.29-11.43) 11/19/22 14:42 RBC 3.92 10^6/uL (3.85-5.65) 11/19/22 14:42 Hgb 12.90 g/dL (11.27-16.99) 11/19/22 14:42 Hct 38.6 % (37-53) 11/19/22 14:42 MCV 98.5 fl (82-101) 11/19/22 14:42 MCH 32.9 pg (27-33) 11/19/22 14:42 MCHC 33.4 g/dL (30-55) 11/19/22 14:42 RDW 14.7 % (12.1-15.1) 11/19/22 14:42 Plt Count 147 10^3/cmm (157-399) L 11/19/22 14:42 MPV 10.4 fL (7.4-10.4) 11/19/22 14:42 Neut % (Auto) 66.1 % 11/19/22 14:42 Lymph % (Auto) 20.4 % 11/19/22 14:42 [place] % (Auto) 11.7 % 11/19/22 14:42 Eos % (Auto) 0.8 % 11/19/22 14:42 Baso % (Auto) 0.7 % 11/19/22 14:42 Neut # (Auto) 4.71 10^3/uL (1.8-7.7) 11/19/22 14:42 Lymph # (Auto) 1.5 10^3/uL (0.8-4.8) 11/19/22 14:42 [place] # (Auto) 0.8 10^3/uL (0.2-0.9) 11/19/22 14:42 Eos # (Auto) 0.1 10^3/uL (0.0-0.8) 11/19/22 14:42 Baso # (Auto) 0.1 10^3/uL (0.0-0.1) 11/19/22 14:42 Nucleated RBC % (auto) 0 % 11/19/22 14:42 Nucleated RBCs # 0.0 /100WBC 11/19/22 14:42 Sodium 139 mmol/L (136-145) 11/19/22 14:42 Potassium 4.3 mmol/L (3.5-5.1) 11/19/22 14:42 Chloride 99 mmol/L (98-107) 11/19/22 14:42 Carbon Dioxide 20 mmol/L (22-29) L 11/19/22 14:42 Anion Gap 24.3 (5-19) H 11/19/22 14:42 BUN 17 mg/dL (8-23) 11/19/22 14:42 Creatinine 0.6 mg/dL (0.7-1.2) L 11/19/22 14:42 GFR Calculation Not Reportable 11/19/22 14:42 Glucose 86 mg/dL (65-115) 11/19/22 14:42 Calculated Osmolality 289 mOsm/kg (285-295) 11/19/22 14:42 Calcium 8.9 mg/dL (8.5-10.5) 11/19/22 14:42 Total Bilirubin 1.5 mg/dL (0.15-1.2) H 11/19/22 14:42 AST 69 U/L (0-40) H 11/19/22 14:42 ALT 28 U/L (0-41) 11/19/22 14:42 Alkaline Phosphatase 76 U/L (40-130) 11/19/22 14:42 Total Protein 6.5 g/dL (6.6-8.7) L 11/19/22 14:42 Albumin 3.8 g/dL (3.5-5.2) 11/19/22 14:42 Globulin 2.7 g/dL (1.3-4.6) 11/19/22 14:42 TSH 1.32 uIU/mL (0.27-4.20) 11/19/22 14:42 Urine Color Magda (Yellow) 11/19/22 17:30 Urine Appearance Clear (CLEAR) 11/19/22 17:30 Urine pH 5 (5-7) 11/19/22 17:30 Ur Specific [place] 1.010 (1.005-1.030) 11/19/22 17:30 Urine Protein Trace (Negative) 11/19/22 17:30 Urine Glucose (UA) Norm (Normal) 11/19/22 17:30 Urine Ketones 1+ (Negative) H 11/19/22 17:30 Urine Blood 2+ (Negative) H 11/19/22 17:30 Urine Nitrate Negative (Negative) 11/19/22 17:30 Urine Bilirubin 1+ (Negative) H 11/19/22 17:30 Urine Urobilinogen 4 mg/dL (Negative) H 11/19/22 17:30 Ur Leukocyte Esterase Negative (Negative) 11/19/22 17:30 Urine RBC 5-10 /hpf (0-2) H 11/19/22 17:30 Urine WBC 0-4 /hpf (0-5) H 11/19/22 17:30 Ur Squamous Epith Cells 0-4 /hpf (0-5) H 11/19/22 17:30 Amorphous Sediment Not Reportable 11/19/22 17:30 Urine Bacteria None /hpf (NONE) 11/19/22 17:30 Urine Mucus 4+ /hpf 11/19/22 17:30 Salicylates 2.2 mg/dL (3-10) L 11/19/22 14:42 Urine Opiates Screen Negative ng/mL (Negative) 11/19/22 17:30 Acetaminophen < 5.0 ug/mL (10-30) L 11/19/22 14:42 Ur Barbiturates Screen Negative ng/mL (Negative) 11/19/22 17:30 Ur Phencyclidine Scrn Negative ng/mL (Negative) 11/19/22 17:30 Ur Amphetamines Screen Negative ng/mL (Negative) 11/19/22 17:30 U Benzodiazepines Scrn Negative ng/mL (Negative) 11/19/22 17:30 Urine Cocaine Screen Negative ng/mL (Negative) 11/19/22 17:30 U Marijuana (THC) Screen Negative ng/mL (Negative) 11/19/22 17:30 Ethyl Alcohol 191 mg/dL (0-10) H 11/19/22 14:42 SARS-CoV-2 Ag (Rapid) negative (Negative) 11/19/22 19:34 Discharge Plan Discharge Patient Disposition: Home Clinical Impression: Alcohol abuse Condition: Stable Prescriptions: No Action aspirin [Adult Aspirin Regimen] 81 mg tablet,delayed release (DR/EC) 162 mg PO QAM nitroglycerin [Nitrostat] 0.4 mg tablet, sublingual 0.4 mg sublingual Q5M PRN (Reason: Chest Pain) Rx Instructions: do not exceed 3 doses per episode mecobalamin (vitamin B12) 1,000 mcg tablet,chewable 1,000 mcg PO DAILY metoprolol tartrate 25 mg tablet 25 mg PO BID Qty: 60 5RF atorvastatin 20 mg tablet 20 mg PO QAM Benadryl Allergy 25 mg Tablet 25 mg PO TID PRN (Reason: Allergy Symptoms) albuterol sulfate 90 mcg/actuation HFA aerosol inhaler 2 puff INHALATION Q6H PRN (Reason: Shortness Of Breath) folic acid 1 mg Tablet 1 mg PO DAILY Qty: 30 0RF Vitamin B-1 (mononitrate) 100 mg Tablet 100 mg PO DAILY Qty: 60 0RF naltrexone 50 mg tablet 25 mg PO DAILY Qty: 14 0RF chlordiazepoxide HCl 25 mg capsule 25 mg PO BID Qty: 5 0RF Rx Instructions: Take 25 mg every 12 hours day 1 Then take 25 mg at bedtime day 2,3,4 and then stop Discharge Orders: Discharge ED (Routine); Ordered 11/19/22 Ordered By: Jony Beasley Referrals: Medardo Bowers MD [Primary Care Provider] - 1-3 days Discharge Diet: Advance as tolerated Discharge Activity: Resume usual activity Patient Instructions: Abuse of Alcohol (ED) Coding Level of Care Code ED Science Interpreter for Katrin Mike
[2022-11-19 16:42] VITALS: BP 128/70; PULSE 85; RESP 18; O2SAT 97
[2022-11-19 16:50] LABS: Basophils # 0.1 10^3/uL (0.0-0.1); Basophils % 0.7 %; Eosinophils # 0.1 10^3/uL (0.0-0.8); Eosinophils % 0.8 %; Hematocrit 38.6 % (37-53); Lymphocytes # 1.5 10^3/uL (0.8-4.8); Lymphocytes % 20.4 %; Mean Corpuscular HGB Conc 33.4 g/dL (30-55); Mean Corpuscular Hemoglobin 32.9 pg (27-33); Mean Corpuscular Volume 98.5 fl (82-101); Mean Platelet Volume 10.4 fL (7.4-10.4); Monocytes # 0.8 10^3/uL (0.2-0.9); Monocytes % 11.7 %; Neutrophils # 4.71 10^3/uL (1.8-7.7); Neutrophils % 66.1 %; Nucleated Red Blood Cells % 0 %; Platelet Count 147 10^3/cmm (157-399); Red Blood Count 3.92 10^6/uL (3.85-5.65); Red Cell Distribution Width 14.7 % (12.1-15.1); White Blood Count 7.12 10^3/uL (3.29-11.43)
[2022-11-19 17:28] LABS: Alanine Aminotransferase 28 U/L (0-41); Albumin Level 3.8 g/dL (3.5-5.2); Alcohol Level 191 mg/dL (0-10); Alkaline Phosphatase 76 U/L (40-130); Anion Gap 24.3 (5-19); Aspartate Amino Transferase 69 U/L (0-40); Blood Urea Nitrogen 17 mg/dL (8-23); Calcium 8.9 mg/dL (8.5-10.5); Carbon Dioxide 20 mmol/L (22-29); Chloride 99 mmol/L (98-107); Globulin 2.7 g/dL (1.3-4.6); Glucose 86 mg/dL (65-115); Osmolality Calculated 289 mOsm/kg (285-295); Potassium 4.3 mmol/L (3.5-5.1); Salicylate 2.2 mg/dL (3-10); Sodium 139 mmol/L (136-145); Thyroid Stimulating Hormone 1.32 uIU/mL (0.27-4.20); Total Bilirubin 1.5 mg/dL (0.15-1.2); Total Protein 6.5 g/dL (6.6-8.7)
[2022-11-19 17:29] LABS: Acetaminophen < 5.0 ug/mL (10-30)
[2022-11-19 17:50] LABS: Add Urine Microscopic? YES; Bilirubin Urine 1+ (Negative); Blood Urine 2+ (Negative); Glucose Urine UA Norm (Normal); Ketones Urine 1+ (Negative); Leukocyte Esterase Urine Negative (Negative); Nitrate Urine Negative (Negative); Protein Urine Trace (Negative); Urine Appearance Clear (CLEAR); Urine Color Amber (Yellow); Urobilinogen Urine 4 mg/dL (Negative); pH Urine 5 (5-7)
[2022-11-19 17:51] LABS: Add Urine Culture? No; Mucus Urine 4+ /hpf; Squamous Epithelial Cell Urine 0-4 /hpf (0-5); WBC Urine 0-4 /hpf (0-5)
[2022-11-19 17:55] LABS: Amphetamines Screen Urine Negative (Negative); Barbiturates Screen Urine Negative (Negative); Benzodiazepines Screen Urine Negative (Negative); Cocaine Screen Urine Negative (Negative); Opiate Screen Urine Negative (Negative); PCP Screen Urine Negative (Negative); THC Screen Urine Negative (Negative)
[2022-11-19] MEDS: sodium chloride 0.9% 1,000 ML 999 ML IV (18:14)
[2022-11-19 19:57] LABS: SARS Covid-2 Antigen negative (Negative)
[2022-11-19 23:21] VITALS: BP 128/70; PULSE 85; RESP 18; TEMP 36.8; O2SAT 97
== END 2022-11-19 23:22 | disposition home or self-care (01) ==
PROVIDERS: Family Medicine; Emergency Provider Emergency Medicine; PCP Family Medicine
DX: F10.129 Alcohol abuse with intoxication, unspecified (principal); Y90.6 Blood alcohol level of 120-199 mg/100 ml
CPT/HCPCS: 36415; 71045; 80053; 80306; 80307; 81001; 84443; 85025; 87426; 99284; J7030

== ENCOUNTER → 2022-12-09 15:33 | Outpatient (BNVA) | payer MEDICARE, MEDICAID, SELFPAY | PROVIDERS: PCP Family Medicine; Visit Provider Podiatrist Foot & Ankle Surgery | DX: B35.1 Tinea unguium (principal); I73.9 Peripheral vascular disease, unspecified; L57.0 Actinic keratosis; L81.4 Other melanin hyperpigmentation; D22.5 Melanocytic nevi of trunk; L85.3 Xerosis cutis; L57.8 Other skin changes due to chronic exposure to nonionizing radiation | CPT/HCPCS: 11721; 17000; 99213 ==

== ENCOUNTER → 2023-02-10 12:38 | Outpatient (BNVA) | payer MEDICARE, MEDICAID, SELFPAY | PROVIDERS: PCP Family Medicine; Visit Provider Podiatrist Foot & Ankle Surgery | DX: B35.1 Tinea unguium (principal); I73.9 Peripheral vascular disease, unspecified; L84 Corns and callosities | CPT/HCPCS: 11056; 11721 ==

== ENCOUNTER 2023-02-14 23:26 | Emergency (ER) | payer MEDICARE, MEDICAID, SELFPAY ==
[2023-02-14 23:34] VITALS: BP 107/69; PULSE 63; RESP 18; TEMP 36.4; O2SAT 98
--- NOTE | 2023-02-14 23:42 | XRR_ITS ---
PROCEDURE INFORMATION: Exam: XR Chest Exam date and time: 02/14/2023 11:50 PM Age: 72 years old Clinical indication: Injury or trauma; Blunt trauma (contusions or hematomas); Patient HX: EMS arrival for fall out of bed at home. Patient intoxicated. History of CVA. ; Additional info: Fall, AMS TECHNIQUE: Imaging protocol: Radiologic exam of the chest. Views: 1 view. COMPARISON: CR XR chest 1V portable [id number] 11/19/2022 4:30 PM FINDINGS: Lungs: No consolidation. Pleural spaces: No large pleural effusion. No pneumothorax. Heart/Mediastinum: Unremarkable cardiomediastinal silhouette. Bones/joints: Unchanged multiple chronic left posterolateral rib fracture deformities. No acute fracture identified, with evaluation somewhat limited due to osseous demineralization. XR/XR chest 1V portable [id number] IMPRESSION: No acute findings.
--- NOTE | 2023-02-14 23:42 | CTR_ITS ---
PROCEDURE INFORMATION: Exam: CT Head Without Contrast Exam date and time: 02/14/2023 11:56 PM Age: 72 years old Clinical indication: Injury or trauma; Blunt trauma (contusions or hematomas); Patient HX: EMS arrival for fall out of bed at home. Patient intoxicated. History of CVA. ; Additional info: Fall, AMS TECHNIQUE: Imaging protocol: Computed tomography of the head without contrast. Radiation optimization: All CT scans at this facility use at least one of these dose optimization techniques: automated exposure control; mA and/or kV adjustment per patient size (includes targeted exams where dose is matched to clinical indication); or iterative reconstruction. REPORTING DATA: Count of CT and Cardiac NM exams in prior 12 months: This patient has received [address] and 0 known cardiac nuclear medicine studies in the 12 months prior to the current study. COMPARISON: CT angio headneck* [id number] 02/07/2021 5:37 PM RADIATION DOSE METRICS: Total DLP (mGy-cm): 1054.48 FINDINGS: Brain: No acute intracranial hemorrhage. No territorial region of rubio-white dedifferentiation. No extra-axial collection. No mass effect or midline shift. Moderate burden of nonspecific white matter hypoattenuation, likely chronic microvascular ischemic change. Punctate hypodensities in the bilateral basal ganglia, likely remote lacunar infarcts or prominent perivascular spaces. Generalized parenchymal volume loss. Cerebral ventricles: No acute hyrocephalus. Paranasal sinuses: Partially imaged mucosal thickening in the left maxillary sinus and aida osteogenesis. No fluid levels. Mastoid air cells: Visualized mastoid air cells are well aerated. Orbital cavities: Unchanged high density within the left globe and scleral band. No acute orbital abnormality. Bones/joints: No acute calvarial fracture. Soft tissues: No acute abnormality. CT/CT head wo con* [id number] IMPRESSION: No acute intracranial hemorrhage or acute calvarial fracture.
--- NOTE | 2023-02-14 23:43 | ECG_ITS ---
[facility] Test Date: 2023-02-15 Pat Name: Gerardo Millan Department: Room: Gender: Male Scutcher Tender: : 1950 Requested By: Joey Patel Order Number: [id number] Ray MD: Ashwin Marie M.D. Measurements Intervals [place] Rate: 60 P: 59 [place]: 149 QRS: -10 QRSD: 89 T: 41 QT: 469 QTc: 469 Interpretive Statements SINUS RHYTHM LOW QRS VOLTAGE IN PRECORDIAL LEADS [QRS DEFLECTION < 1.0 mV IN CHEST LEADS] MINIMAL VOLTAGE CRITERIA FOR LVH, CONSIDER NORMAL VARIANT [MEETS CRITERIA IN ONE OF: R(aVL), S(V1), R(V5), R(V5/V6)+S(V1)] POSSIBLE ANTERIOR MYOCARDIAL INFARCTION , PROBABLY OLD [30 ms Q WAVE IN V3/V4, OR R < 0.2 mV IN V4] Compared to ECG 10/03/2022 11:43:47 Low QRS voltage now present Myocardial infarct finding now present Electronically Signed On 02-15-2023 15:36:09 AUTOMOTIVE MANAGER by Ashwin Marie M.D. [id number]
[2023-02-14 23:47] VITALS: BP 107/69; PULSE 68; RESP 18; O2SAT 96
[2023-02-14 23:54] LABS: Basophils # 0.1 10^3/uL (0.0-0.1); Basophils % 1.1 %; Eosinophils # 0.2 10^3/uL (0.0-0.8); Eosinophils % 3.8 %; Hematocrit 34.7 % (37-53); Lymphocytes # 1.8 10^3/uL (0.8-4.8); Mean Corpuscular HGB Conc 32.9 g/dL (30-55); Mean Corpuscular Hemoglobin 33.8 pg (27-33); Mean Platelet Volume 10.1 fL (7.4-10.4); Monocytes # 0.7 10^3/uL (0.2-0.9); Monocytes % 11.5 %; Neutrophils # 3.46 10^3/uL (1.8-7.7); Neutrophils % 55.3 %; Nucleated Red Blood Cells % 0 %; Platelet Count 190 10^3/cmm (157-399); Red Blood Count 3.37 10^6/uL (3.85-5.65); Red Cell Distribution Width 17.1 % (12.1-15.1); White Blood Count 6.26 10^3/uL (3.29-11.43)
[2023-02-15] MEDS: sodium chloride 0.9% 500 ML IV (00:03)
--- NOTE | 2023-02-15 00:03 | ED_ITS ---
HPI - Fall General: Chief Complaint: Fall Stated Complaint: FALL Time Seen by Provider: 02/14/23 23:29 Source: patient and EMS History of Present Illness: Intoxicated 72-year-old male presenting with a fall. According to bystanders, he got up from bed to use the restroom and fell. He does not complain of pain. He states nothing hurts. He was able to bear weight following. He denies being ill recently otherwise. He is not anticoagulated otherwise. Associated symptoms-after fall: Denies chest pain, headache(s) or neck pain Review of Systems Const: Denies: fever(s) ENMT: Denies: throat pain Card: Denies: chest pain Resp: Denies: dyspnea GI: Denies: vomiting Musc: Denies: neck pain or back pain Neuro: Denies: headache(s) PFSH ED PFSH: Medical History Acute dehydration Alcohol abuse Alcohol withdrawal Alcoholic intoxication Alcoholic ketoacidosis Alcoholism Anal cancer Anxiety Cholelithiasis COPD (chronic obstructive pulmonary disease) CVA (cerebral vascular accident) Depression Dizziness DVT (deep venous thrombosis) Generalized weakness Hypertension Hypomagnesemia Myocardial infarction Pancreatitis Peripheral vascular disease Status post chemoradiation Vomiting Surgical History History of ankle surgery History of tonsillectomy Hx of cataract extraction Hx of non-cataract eye surgery Status post colonoscopy Status post laparoscopic cholecystectomy (11/13/20) Family History Other Family history non-contributory Social History Alcohol intake: current Alcohol intake frequency: 3 or more drinks per day Substance/Drug Use: never Household members: family Housing: House Physical Exam Const: COMMON NORMALS: no acute distress GENERAL APPEARANCE: cooperative and frail appearing; not ill appearing HENMT: COMMON NORMALS: normocephalic, atraumatic and Normal external nose present HEAD & SCALP: normocephalic and atraumatic FACE & SINUS: normal facial exam and face symmetric NOSE: Normal external nose present Eye: OTHER: Left eye sclerotic Neck/C-Spine: GENERAL: Yes trachea midline Chest: CHEST: Yes Symmetrical chest wall rise Resp: COMMON NORMALS: normal respiratory effort, No retractions, No use of accessory muscles and clear to auscultation bilaterally AUSCULTATION: clear to auscultation bilaterally Cardio: COMMON NORMALS: regular rate and regular rhythm RATE: regular rate RHYTHM: regular rhythm GI: COMMON NORMALS: Normal to inspection, nondistended, normoactive bowel sounds present Extremity: COMMON NORMALS: no pedal edema Neuro: HOMER COMA SCALE: document GCS findings [place] coma scale eye opening: Spontaneous [place] coma scale verbal response: Orientated [place] coma scale motor response: Obey commands [place] coma scale total score: 15 SENSORY EXAM: Yes extremities (intact) Psych: COMMON NORMALS: speech normal SPEECH: Yes normal speech Skin: COMMON NORMALS: no rashes or lesions noted GENERAL SKIN EXAM: no rashes or lesions noted Course Vital Signs: Vital signs: Vital Signs Temperature 97.5 F L 02/14/23 23:34 Pulse Rate 66 02/15/23 00:41 Respiratory Rate 18 02/15/23 00:41 Blood Pressure 121/73 02/15/23 00:41 Pulse Oximetry 96 02/15/23 00:41 Oxygen Delivery Me thod Room Air 02/15/23 00:41 MDM - Fall Medical Decision Making No obvious injury. Vitals are stable. As he is intoxicated, will have to scan head. We will obtain chest x-ray as well. Chest x-ray and head CT are negative. Laboratory shows a nonremarkable CBC and BMP. Liver enzymes are normal. Alcohol is critical at 397. Patient is still awake and alert, and oriented to some degree. When more sober, he will be allowed discharge home. Transportation may be an issue. Lab Data 02/14/23 23:35 02/14/23 23:35 Radiology Impressions Chest X-Ray 02/14/23 23:42 IMPRESSION: No acute findings. Head CT 02/14/23 23:42 IMPRESSION: No acute intracranial hemorrhage or acute calvarial fracture. Laboratory Results WBC 6.26 10^3/uL (3.29-11.43) 02/14/23 23:35 RBC 3.37 10^6/uL (3.85-5.65) L 02/14/23 23:35 Hgb 11.40 g/dL (11.27-16.99) 02/14/23 23:35 Hct 34.7 % (37-53) L 02/14/23 23:35 MCV 103.0 fl (82-101) H 02/14/23 23:35 MCH 33.8 pg (27-33) H 02/14/23 23:35 MCHC 32.9 g/dL (30-55) 02/14/23 23:35 RDW 17.1 % (12.1-15.1) H 02/14/23 23:35 Plt Count 190 10^3/cmm (157-399) 02/14/23 23:35 MPV 10.1 fL (7.4-10.4) 02/14/23 23:35 Neut % (Auto) 55.3 % 02/14/23 23:35 Lymph % (Auto) 28.0 % 02/14/23 23:35 [place] % (Auto) 11.5 % 02/14/23 23:35 Eos % (Auto) 3.8 % 02/14/23 23:35 Baso % (Auto) 1.1 % 02/14/23 23:35 Neut # (Auto) 3.46 10^3/uL (1.8-7.7) 02/14/23 23:35 Lymph # (Auto) 1.8 10^3/uL (0.8-4.8) 02/14/23 23:35 [place] # (Auto) 0.7 10^3/uL (0.2-0.9) 02/14/23 23:35 Eos # (Auto) 0.2 10^3/uL (0.0-0.8) 02/14/23 23:35 Baso # (Auto) 0.1 10^3/uL (0.0-0.1) 02/14/23 23:35 Nucleated RBC % (auto) 0 % 02/14/23 23:35 Nucleated RBCs # 0.0 /100WBC 02/14/23 23:35 PT 12.30 SECONDS (12.1-14.9) 02/14/23 23:35 INR 0.89 (0.8-1.2) 02/14/23 23:35 Sodium 140 mmol/L (136-145) 02/14/23 23:35 Potassium 4.1 mmol/L (3.5-5.1) 02/14/23 23:35 Chloride 106 mmol/L (98-107) 02/14/23 23:35 Carbon Dioxide 23 mmol/L (22-29) 02/14/23 23:35 Anion Gap 15.1 (5-19) 02/14/23 23:35 BUN 17 mg/dL (8-23) 02/14/23 23:35 Creatinine 0.6 mg/dL (0.7-1.2) L 02/14/23 23:35 GFR Calculation Not Reportable 02/14/23 23:35 Glucose 90 mg/dL (65-115) 02/14/23 23:35 Calculated Osmolality 291 mOsm/kg (285-295) 02/14/23 23:35 Calcium 8.9 mg/dL (8.5-10.5) 02/14/23 23:35 Magnesium 1.6 mg/dL (1.7-2.3) L 02/14/23 23:35 Total Bilirubin 0.2 mg/dL (0.15-1.2) 02/14/23 23:35 AST 39 U/L (0-40) 02/14/23 23:35 ALT 14 U/L (0-41) 02/14/23 23:35 Alkaline Phosphatase 104 U/L (40-130) 02/14/23 23:35 Creatine Kinase 34 U/L (39-308) L 02/14/23 23:35 Total Protein 6.3 g/dL (6.6-8.7) L 02/14/23 23:35 Albumin 3.6 g/dL (3.5-5.2) 02/14/23 23:35 Globulin 2.7 g/dL (1.3-4.6) 02/14/23 23:35 Ethyl Alcohol 397 mg/dL (0-10) H* 02/14/23 23:35 All radiology interpretation(s) finalized by discharge Discharge Plan Discharge Patient Disposition: Home Clinical Impression: Alcohol intoxication Condition: Stable Prescriptions: No Action aspirin [Adult Aspirin Regimen] 81 mg tablet,delayed release (DR/EC) 162 mg PO QAM nitroglycerin [Nitrostat] 0.4 mg tablet, sublingual 0.4 mg sublingual Q5M PRN (Reason: Chest Pain) Rx Instructions: do not exceed 3 doses per episode mecobalamin (vitamin B12) 1,000 mcg tablet,chewable 1,000 mcg PO DAILY (DME) foot soak basin See Rx Instructions .Route .MEDSUPPLY Qty: 1 0RF Rx Instructions: As directed to HOME metoprolol tartrate 25 mg tablet 25 mg PO BID Qty: 60 5RF atorvastatin 20 mg tablet 20 mg PO QAM Benadryl Allergy 25 mg Tablet 25 mg PO TID PRN (Reason: Allergy Symptoms) albuterol sulfate 90 mcg/actuation HFA aerosol inhaler 2 puff INHALATION Q6H PRN (Reason: Shortness Of Breath) folic acid 1 mg Tablet 1 mg PO DAILY Qty: 30 0RF Vitamin B-1 (mononitrate) 100 mg Tablet 100 mg PO DAILY Qty: 60 0RF naltrexone 50 mg tablet 25 mg PO DAILY Qty: 14 0RF chlordiazepoxide HCl 25 mg capsule 25 mg PO BID Qty: 5 0RF Rx Instructions: Take 25 mg every 12 hours day 1 Then take 25 mg at bedtime day 2,3,4 and then stop Discharge Orders: Discharge ED (Routine); Ordered 02/15/23 Ordered By: Joey Leon Referrals: Medardo Bowers MD [Primary Care Provider] - 1-3 days Patient Instructions: Alcohol Intoxication (ED), Opioid Safety, Pain Management Activity Restrictions/Additional Instructions: Abstain from alcohol is much as possible. Return for more frequent falls, increasing pain, vomiting, other concerning symptoms. You should stay with a responsible, sober adult until you are recovered. Coding Level of Care Code ED Adjuster Piano Action for Katrin Mike
[2023-02-15 00:09] LABS: INR 0.89 (0.8-1.2)
[2023-02-15 00:17] LABS: Alanine Aminotransferase 14 U/L (0-41); Albumin Level 3.6 g/dL (3.5-5.2); Alkaline Phosphatase 104 U/L (40-130); Anion Gap 15.1 (5-19); Aspartate Amino Transferase 39 U/L (0-40); Blood Urea Nitrogen 17 mg/dL (8-23); Calcium 8.9 mg/dL (8.5-10.5); Carbon Dioxide 23 mmol/L (22-29); Chloride 106 mmol/L (98-107); Creatine Phosphokinase 34 U/L (39-308); Globulin 2.7 g/dL (1.3-4.6); Glucose 90 mg/dL (65-115); Magnesium 1.6 mg/dL (1.7-2.3); Osmolality Calculated 291 mOsm/kg (285-295); Potassium 4.1 mmol/L (3.5-5.1); Sodium 140 mmol/L (136-145); Total Bilirubin 0.2 mg/dL (0.15-1.2); Total Protein 6.3 g/dL (6.6-8.7)
[2023-02-15 00:21] LABS: Alcohol Level 397 mg/dL (0-10)
[2023-02-15 00:41] VITALS: BP 121/73; PULSE 66; RESP 18; O2SAT 96
--- NOTE | 2023-02-15 02:44 | PC.NURSE ---
Contacted Pt's only family contact; they stated they will not come pick him up and he needs to find another way home and hung up.
[2023-02-15 05:55] VITALS: BP 99/68; PULSE 118; RESP 18; O2SAT 94
[2023-02-15 06:21] VITALS: BP 119/69; PULSE 50; RESP 18; O2SAT 97
== END 2023-02-15 06:17 | disposition home or self-care (01) ==
PROVIDERS: Emergency Provider Emergency Medicine; PCP Family Medicine
DX: F10.129 Alcohol abuse with intoxication, unspecified (principal); Y90.8 Blood alcohol level of 240 mg/100 ml or more; Z79.82 Long term (current) use of aspirin; Z85.048 Personal history of other malignant neoplasm of rectum, rectosigmoid junction, and anus; J44.9 Chronic obstructive pulmonary disease, unspecified; I10 Essential (primary) hypertension; I25.2 Old myocardial infarction; Z92.21 Personal history of antineoplastic chemotherapy; Z92.3 Personal history of irradiation; Z86.73 Personal history of transient ischemic attack (TIA), and cerebral infarction without residual deficits
CPT/HCPCS: 70450; 71045; 80053; 80307; 82550; 83735; 85025; 85610; 93005; 99285; J7040

== ENCOUNTER 2023-02-15 21:28 | Emergency (ER) | payer MEDICARE, MEDICAID, SELFPAY ==
[2023-02-15 21:29] VITALS: PULSE 65; RESP 21; TEMP 36.6; O2SAT 98; BMI 18.4
--- NOTE | 2023-02-15 21:33 | XRR_ITS ---
PROCEDURE INFORMATION: Exam: XR Left Humerus Exam date and time: 02/15/2023 9:37 PM Age: 72 years old Clinical indication: Injury or trauma; Patient HX: Lt upper arm pain/deformity after fall; Additional info: Fall, obvious deformity TECHNIQUE: Imaging protocol: Radiologic exam of the left humerus. Views: 2 or more views. COMPARISON: CR (CHEST, ) 02/14/2023 11:50 PM FINDINGS: Bones/joints: Comminuted displaced and angulated fracture of the mid to distal left humerus. Multiple healed left-sided rib fractures. Soft tissues: Normal. XR/[place] [id number] IMPRESSION: Comminuted displaced and angulated fracture of the mid to distal left humerus.
--- NOTE | 2023-02-15 21:58 | W.ED.FALL ---
Documented by User: ZOE Segura 02/16/23 01:57 HPI - Fall General: Chief Complaint: Fall Stated Complaint: FALL Time Seen by Provider: 02/15/23 21:31 Source: patient Mode of arrival: EMS Limitations: no limitations History of Present Illness: Patient presents to the emergency department today brought by EMS for evaluation treatment of concerns for left arm injury. Patient states that he was at home sitting on his barstool drinking. He indicated that one of his cats had gotten under foot and he was afraid he was going to injure it and wound up falling off of a barstool. Incidentally, patient was seen and evaluated here in the emergency department just last night for acute alcohol intoxication. Patient's blood alcohol was almost 0.4 but, was observed here in the emergency department and allowed to sleep it off. EMS indicates the patient is not complaining of pain and was refusing medications and splinting of the arm prior to arrival. Review of Systems General: Reports: 10 or more systems reviewed and unremarkable except in HPI and below PFSH ED PFSH: Medical History Acute dehydration Alcohol abuse Alcohol withdrawal Alcoholic intoxication Alcoholic ketoacidosis Alcoholism Anal cancer Anxiety Cholelithiasis COPD (chronic obstructive pulmonary disease) CVA (cerebral vascular accident) Depression Dizziness DVT (deep venous thrombosis) Generalized weakness Hypertension Hypomagnesemia Myocardial infarction Pancreatitis Peripheral vascular disease Status post chemoradiation Vomiting Surgical History History of ankle surgery History of tonsillectomy Hx of cataract extraction Hx of non-cataract eye surgery Status post colonoscopy Status post laparoscopic cholecystectomy (11/13/20) Family History Other Family history non-contributory Social History Alcohol intake: current Alcohol intake frequency: 3 or more drinks per day Substance/Drug Use: never Household members: family Housing: House Physical Exam Const: COMMON NORMALS: no acute distress, patient oriented x3 and alert OTHER: Patient is pleasant and social. He does answer his own history. HENMT: COMMON NORMALS: normocephalic, atraumatic and hearing grossly normal bilaterally HEAD & SCALP: normocephalic and atraumatic Eye: COMMON NORMALS: Equal, round and reactive pupils present, EOMs intact bilaterally and conjunctivae normal CONJUNCTIVA: Yes conjunctivae normal PUPIL: Yes Equal, round and reactive pupils present Neck/C-Spine: COMMON NORMALS: full ROM and no JVD Lymph: LYMPHATIC: no lymphadenopathy noted Resp: COMMON NORMALS: normal respiratory effort, No retractions and No use of accessory muscles Cardio: COMMON NORMALS: no JVD and regular rate RATE: regular rate Extremity: NARRATIVE EXTREMITY EXAM: Patient with obvious midshaft humeral deformity of the left arm. Patient is still attempting to move and use his left arm which worsens the deformity. Patient with motor winder strength to the left hand intact. Patient with palpable pulses distally in the left upper extremity. Patient with sensation intact and no signs of left wrist drop. Neuro: COMMON NORMALS: patient oriented x3 SENSORIUM/ORIENTATION: Yes alert OTHER: Neurovascular intact to the left upper extremity Psych: COMMON NORMALS: mental status grossly normal, Normal thought process present, cooperative and normal affect THOUGHT PROCESS: Normal thought process present Skin: COMMON NORMALS: no rashes or lesions noted and turgor normal GENERAL SKIN EXAM: no rashes or lesions noted and turgor normal Course Vital Signs: Vital signs: Vital Signs Temperature 97.8 F 02/15/23 21:29 Pulse Rate 74 02/16/23 06:44 Respiratory Rate 18 02/16/23 06:44 Blood Pressure 114/67 02/16/23 05:29 Pulse Oximetry 96 02/16/23 06:44 Oxygen Delivery Me thod Room Air 02/16/23 05:29 MDM - Fall Medical Decision Making Patient presents emergency department today with obvious deformity of the left upper arm. Function was still intact distally. After speaking to the patient, he did allow for placement of the sling at least but was still not complaining of pain at this time. Repeat lab work and imaging of the left upper extremity was obtained. Patient was found to have a significant fracture of the left mid and distal humerus. EtOH was greater than 300. While waiting for lab work and finalized imaging, patient did begin to indicate discomfort and after speaking with Dr. Leon, patient was treated with fentanyl. Patient was able to be comfortable but, after having a splint placed, was again complaining of pain. Again, fentanyl provided. After speaking with Dr. Leon, he recommended contacting Dr. Garcia with orthopedics to ask for a consult in the morning as he believed the patient should be admitted given this is his second evaluation in the emergency department for intoxication and, patient had a significant fall resulting in his fracture-he did not think patient was safe to be at home in this condition and recommended admission for monitoring at this time. I spoke to Dr. Garcia who indicated his willingness to consult at bedside in the morning. I reached out to hospitalist and spoke to Dr. Guillen but he indicated at this time he did not think orthopedics would see this patient and wanted official confirmation that the patient did not need to be sent out. At this point, Dr. Leon assumed care of the patient and indicated he would follow-up to perform a plan for care and treatment of this patient. Differential Diagnosis Unlikely syncope, dislocation of shoulder region, fracture of wrist, compression fracture, concussion with loss of consciousness or concussion without loss of consciousness Lab Data 02/15/23 22:01 02/15/23 22:01 Radiology Impressions Humerus X-Ray 02/15/23 21:33 IMPRESSION: Comminuted displaced and angulated fracture of the mid to distal left humerus. Laboratory Results WBC 5.59 10^3/uL (3.29-11.43) 02/15/23 22: RBC 3.30 10^6/uL (3.85-5.65) L 02/15/23 22: Hgb 11.40 g/dL (11.27-16.99) 02/15/23 22: Hct 34.5 % (37-53) L 02/15/23 22: MCV 104.5 fl (82-101) H 02/15/23 22: MCH 34.5 pg (27-33) H 02/15/23 22: MCHC 33.0 g/dL (30-55) 02/15/23 22: RDW 17.1 % (12.1-15.1) H 02/15/23 22: Plt Count 185 10^3/cmm (157-399) 02/15/23 22: MPV 9.8 fL (7.4-10.4) 02/15/23 22: Neut % (Auto) 61.8 % 02/15/23 22: Lymph % (Auto) 23.1 % 02/15/23 22:01 Archer % (Auto) 12.0 % 02/15/23 22:01 Eos % (Auto) 1.8 % 02/15/23 22:01 Baso % (Auto) 0.9 % 02/15/23 22:01 Neut # (Auto) 3.46 10^3/uL (1.8-7.7) 02/15/23 22: Lymph # (Auto) 1.3 10^3/uL (0.8-4.8) 02/15/23 22:01 Archer # (Auto) 0.7 10^3/uL (0.2-0.9) 02/15/23 22: Eos # (Auto) 0.1 10^3/uL (0.0-0.8) 02/15/23 22:01 Baso # (Auto) 0.1 10^3/uL (0.0-0.1) 02/15/23 22: Nucleated RBC % (auto) 0 % 02/15/23 22: Nucleated RBCs # 0.0 /100WBC 02/15/23 22:01 Sodium 139 mmol/L (136-145) 02/15/23 22: Potassium 4.5 mmol/L (3.5-5.1) 02/15/23 22: Chloride 103 mmol/L (98-107) 02/15/23 22: Carbon Dioxide 21 mmol/L (22-29) L 02/15/23 22: Anion Gap 19.5 (5-19) H 02/15/23 22: BUN 18 mg/dL (8-23) 02/15/23 22: Creatinine 0.5 mg/dL (0.7-1.2) L 02/15/23 22: GFR Calculation Not Reportable 02/15/23 22: Glucose 94 mg/dL (65-115) 02/15/23 22: Calculated Osmolality 290 mOsm/kg (285-295) 02/15/23 22: Calcium 8.8 mg/dL (8.5-10.5) 02/15/23 22:01 Total Bilirubin 0.2 mg/dL (0.15-1.2) 02/15/23 22: AST 34 U/L (0-40) 11/18/23 22:01 ALT 18 U/L (0-41) 02/15/23 22:01 Alkaline Phosphatase 94 U/L (40-130) 02/15/23 22:01 Total Protein 6.4 g/dL (6.6-8.7) L 02/15/23 22:01 Albumin 3.5 g/dL (3.5-5.2) 02/15/23 22:01 Globulin 2.9 g/dL (1.3-4.6) 02/15/23 22:01 Ethyl Alcohol 312 mg/dL (0-10) H* 02/15/23 22:01 All radiology interpretation(s) finalized by discharge Discharge Plan Discharge Patient Disposition: Home Clinical Impression: Alcohol intoxication, Fracture of shaft of left humerus Condition: Stable Prescriptions: New hydrocodone-acetaminophen 5-325 mg tablet 1 tab PO Q8H PRN (Reason: pain) Qty: 7 0RF Discontinued naltrexone 50 mg tablet 25 mg PO DAILY Qty: 14 0RF No Action aspirin [Adult Aspirin Regimen] 81 mg tablet,delayed release (DR/EC) 162 mg PO QAM nitroglycerin [Nitrostat] 0.4 mg tablet, sublingual 0.4 mg sublingual Q5M PRN (Reason: Chest Pain) Rx Instructions: do not exceed 3 doses per episode mecobalamin (vitamin B12) 1,000 mcg tablet,chewable 1,000 mcg PO DAILY (DME) foot soak basin See Rx Instructions .Route .MEDSUPPLY Qty: 1 0RF Rx Instructions: As directed to HOME metoprolol tartrate 25 mg tablet 25 mg PO BID Qty: 60 5RF atorvastatin 20 mg tablet 20 mg PO QAM Benadryl Allergy 25 mg Tablet 25 mg PO TID PRN (Reason: Allergy Symptoms) albuterol sulfate 90 mcg/actuation HFA aerosol inhaler 2 puff INHALATION Q6H PRN (Reason: Shortness Of Breath) folic acid 1 mg Tablet 1 mg PO DAILY Qty: 30 0RF Vitamin B-1 (mononitrate) 100 mg Tablet 100 mg PO DAILY Qty: 60 0RF chlordiazepoxide HCl 25 mg capsule 25 mg PO BID Qty: 5 0RF Rx Instructions: Take 25 mg every 12 hours day 1 Then take 25 mg at bedtime day 2,3,4 and then stop Discharge Orders: Discharge ED (Routine); Ordered 02/16/23 Ordered By: Joey Leno Referrals: Polo Garcia DO [Physician] - 1-3 days Medardo Bowers MD [Primary Care Provider] - Patient Instructions: Arm Fracture in Adults (ED), Opioid Safety, Pain Management Activity Restrictions/Additional Instructions: It is imperative that she abstain from alcohol, as this is the ultimate cause of your injury. Stay in the sling and splint until seen by orthopedics. Call tomorrow for an appointment this week. Use pain medication sparingly. Return for continued problems such as worsening pain despite treatment, inability to move your fingers, etc. Coding Level of Care Code ED Core Winding Operator for Chg Fwd Documented by User: Joey Leon DO 02/16/23 20:40 HPI - Fall General: Chief Complaint: Fall Stated Complaint: FALL Time Seen by Provider: 02/15/23 21:31 PFSH ED PFSH: Medical History Acute dehydration Alcohol abuse Alcohol withdrawal Alcoholic intoxication Alcoholic ketoacidosis Alcoholism Anal cancer Anxiety Cholelithiasis COPD (chronic obstructive pulmonary disease) CVA (cerebral vascular accident) Depression Dizziness DVT (deep venous thrombosis) Generalized weakness Hypertension Hypomagnesemia Myocardial infarction Pancreatitis Peripheral vascular disease Status post chemoradiation Vomiting Surgical History History of ankle surgery History of tonsillectomy Hx of cataract extraction Hx of non-cataract eye surgery Status post colonoscopy Status post laparoscopic cholecystectomy (11/13/20) Family History Other Family history non-contributory Social History Alcohol intake: current Alcohol intake frequency: 3 or more drinks per day Substance/Drug Use: never Household members: family Housing: House Course Vital Signs: Vital signs: Vital Signs Temperature 97.8 F 02/15/23 21:29 Pulse Rate 74 02/16/23 06:44 Respiratory Rate 18 02/16/23 06:44 Blood Pressure 114/67 02/16/23 05:29 Pulse Oximetry 96 02/16/23 06:44 Oxygen Delivery Me thod Room Air 02/16/23 05:29 MDM - Fall Medical Decision Making Patient presents emergency department today with obvious deformity of the left upper arm. Function was still intact distally. After speaking to the patient, he did allow for placement of the sling at least but was still not complaining of pain at this time. Repeat lab work and imaging of the left upper extremity was obtained. Patient was found to have a significant fracture of the left mid and distal humerus. EtOH was greater than 300. While waiting for lab work and finalized imaging, patient did begin to indicate discomfort and after speaking with Dr. Leon, patient was treated with fentanyl. Patient was able to be comfortable but, after having a splint placed, was again complaining of pain. Again, fentanyl provided. After speaking with Dr. Leon, he recommended contacting Dr. Garcia with orthopedics to ask for a consult in the morning as he believed the patient should be admitted given this is his second evaluation in the emergency department for intoxication and, patient had a significant fall resulting in his fracture-he did not think patient was safe to be at home in this condition and recommended admission for monitoring at this time. I spoke to Dr. Garcia who indicated his willingness to consult at bedside in the morning. I reached out to hospitalist and spoke to Dr. Guillen but he indicated at this time he did not think orthopedics would see this patient and wanted official confirmation that the patient did not need to be sent out. At this point, Dr. Leon assumed care of the patient and indicated he would follow-up to perform a plan for care and treatment of this patient. 0614: This patient was originally seen by Mrs. Ramo PA-C. I agree with her history, evaluation, and treatment thus far. This patient has been seen twice in 24 hours with intoxication of alcohol. This time, he is fallen and has a distal humeral shaft fracture on the left. He is splinted. He is neurovascularly intact. We have spoken with the hospitalist team, but the patient does not appear to have a medical reason for admission other than intoxication. We have spoken with orthopedics, and as this is a nonsurgical fracture, they are unwilling to admit. He is placed in appropriate splint. He will follow-up with orthopedics. He is encouraged to quit drinking, as this is the ultimate culprit to his problems. However, we understand, that even an observation admission will not prevent drinking in the future and therefore falls such as this in the future. Lab Data 02/15/23 22:02/15/23 22: Radiology Impressions Humerus X-Ray 02/15/23 21:33 IMPRESSION: Comminuted displaced and angulated fracture of the mid to distal left humerus. Laboratory Results WBC 5.59 10^3/uL (3.29-11.43) 02/15/23: RBC 3.30 10^6/uL (3.85-5.65) L 02/15/23: Hgb 11.40 g/dL (11.27-16.99) 02/15/23: Hct 34.5 % (37-53) L 02/15/23: MCV 104.5 fl (82-101) H 02/15/23 22: MCH 34.5 pg (27-33) H 02/15/23: MCHC 33.0 g/dL (30-55) 02/15/23 22: RDW 17.1 % (12.1-15.1) H 02/15/23 22: Plt Count 185 10^3/cmm (157-399) 02/15/23: MPV 9.8 fL (7.4-10.4) 02/15/23 22: Neut % (Auto) 61.8 % 02/15/23 22: Lymph % (Auto) 23.1 % 02/15/23: Archer % (Auto) 12.0 % 02/15/23: Eos % (Auto) 1.8 % 02/15/23 22: Baso % (Auto) 0.9 % 02/15/23 22: Neut # (Auto) 3.46 10^3/uL (1.8-7.7) 02/15/23 22: Lymph # (Auto) 1.3 10^3/uL (0.8-4.8) 02/15/23 22:01 Archer # (Auto) 0.7 10^3/uL (0.2-0.9) 02/15/23 22:01 Eos # (Auto) 0.1 10^3/uL (0.0-0.8) 02/15/23 22:01 Baso # (Auto) 0.1 10^3/uL (0.0-0.1) 02/15/23 22:01 Nucleated RBC % (auto) 0 % 02/15/23 22: Nucleated RBCs # 0.0 /100WBC 02/15/23 22:01 Sodium 139 mmol/L (136-145) 02/15/23 22:01 Potassium 4.5 mmol/L (3.5-5.1) 02/15/23 22:01 Chloride 103 mmol/L (98-107) 02/15/23 22:01 Carbon Dioxide 21 mmol/L (22-29) L 02/15/23 22:01 Anion Gap 19.5 (5-19) H 02/15/23 22:01 BUN 18 mg/dL (8-23) 02/15/23 22:01 Creatinine 0.5 mg/dL (0.7-1.2) L 02/15/23 22:01 GFR Calculation Not Reportable 02/15/23 22: Glucose 94 mg/dL (65-115) 02/15/23 22:01 Calculated Osmolality 290 mOsm/kg (285-295) 02/15/23 22: Calcium 8.8 mg/dL (8.5-10.5) 02/15/23 22:01 Total Bilirubin 0.2 mg/dL (0.15-1.2) 02/15/23 22:01 AST 34 U/L (0-40) 02/15/23 22:01 ALT 18 U/L (0-41) 02/15/23 22:01 Alkaline Phosphatase 94 U/L (40-130) 02/15/23 22:01 Total Protein 6.4 g/dL (6.6-8.7) L 02/15/23 22:01 Albumin 3.5 g/dL (3.5-5.2) 02/15/23 22: Globulin 2.9 g/dL (1.3-4.6) 02/15/23 22:01 Ethyl Alcohol 312 mg/dL (0-10) H* 02/15/23 22:01 Discharge Plan Discharge Patient Disposition: Home Clinical Impression: Alcohol intoxication, Fracture of shaft of left humerus Condition: Stable Prescriptions: New hydrocodone-acetaminophen 5-325 mg tablet 1 tab PO Q8H PRN (Reason: pain) Qty: 7 0RF Discontinued naltrexone 50 mg tablet 25 mg PO DAILY Qty: 14 0RF No Action aspirin [Adult Aspirin Regimen] 81 mg tablet,delayed release (DR/EC) 162 mg PO QAM nitroglycerin [Nitrostat] 0.4 mg tablet, sublingual 0.4 mg sublingual Q5M PRN (Reason: Chest Pain) Rx Instructions: do not exceed 3 doses per episode mecobalamin (vitamin B12) 1,000 mcg tablet,chewable 1,000 mcg PO DAILY (DME) foot soak basin See Rx Instructions .Route .MEDSUPPLY Qty: 1 0RF Rx Instructions: As directed to HOME metoprolol tartrate 25 mg tablet 25 mg PO BID Qty: 60 5RF atorvastatin 20 mg tablet 20 mg PO QAM Benadryl Allergy 25 mg Tablet 25 mg PO TID PRN (Reason: Allergy Symptoms) albuterol sulfate 90 mcg/actuation HFA aerosol inhaler 2 puff INHALATION Q6H PRN (Reason: Shortness Of Breath) folic acid 1 mg Tablet 1 mg PO DAILY Qty: 30 0RF Vitamin B-1 (mononitrate) 100 mg Tablet 100 mg PO DAILY Qty: 60 0RF chlordiazepoxide HCl 25 mg capsule 25 mg PO BID Qty: 5 0RF Rx Instructions: Take 25 mg every 12 hours day 1 Then take 25 mg at bedtime day 2,3,4 and then stop Discharge Orders: Discharge ED (Routine); Ordered 02/16/23 Ordered By: Joey Leon Referrals: Polo Garcia DO [Physician] - 1-3 days Medardo Bowers MD [Primary Care Provider] - Patient Instructions: Arm Fracture in Adults (ED), Opioid Safety, Pain Management Activity Restrictions/Additional Instructions: It is imperative that she abstain from alcohol, as this is the ultimate cause of your injury. Stay in the sling and splint until seen by orthopedics. Call tomorrow for an appointment this week. Use pain medication sparingly. Return for continued problems such as worsening pain despite treatment, inability to move your fingers, etc. Coding Level of Care Code ED Core Winding Operator for Katrin Mike
[2023-02-15 22:06] LABS: Basophils # 0.1 10^3/uL (0.0-0.1); Basophils % 0.9 %; Eosinophils # 0.1 10^3/uL (0.0-0.8); Eosinophils % 1.8 %; Hematocrit 34.5 % (37-53); Lymphocytes # 1.3 10^3/uL (0.8-4.8); Lymphocytes % 23.1 %; Mean Corpuscular Hemoglobin 34.5 pg (27-33); Mean Corpuscular Volume 104.5 fl (82-101); Mean Platelet Volume 9.8 fL (7.4-10.4); Monocytes # 0.7 10^3/uL (0.2-0.9); Neutrophils # 3.46 10^3/uL (1.8-7.7); Neutrophils % 61.8 %; Nucleated Red Blood Cells % 0 %; Platelet Count 185 10^3/cmm (157-399); Red Cell Distribution Width 17.1 % (12.1-15.1); White Blood Count 5.59 10^3/uL (3.29-11.43)
[2023-02-15 22:26] LABS: Alanine Aminotransferase 18 U/L (0-41); Albumin Level 3.5 g/dL (3.5-5.2); Alkaline Phosphatase 94 U/L (40-130); Anion Gap 19.5 (5-19); Aspartate Amino Transferase 34 U/L (0-40); Blood Urea Nitrogen 18 mg/dL (8-23); Calcium 8.8 mg/dL (8.5-10.5); Carbon Dioxide 21 mmol/L (22-29); Chloride 103 mmol/L (98-107); Globulin 2.9 g/dL (1.3-4.6); Glucose 94 mg/dL (65-115); Osmolality Calculated 290 mOsm/kg (285-295); Potassium 4.5 mmol/L (3.5-5.1); Sodium 139 mmol/L (136-145); Total Bilirubin 0.2 mg/dL (0.15-1.2); Total Protein 6.4 g/dL (6.6-8.7)
[2023-02-15 22:28] LABS: Alcohol Level 312 mg/dL (0-10)
[2023-02-15] MEDS: sodium chloride 0.9% 1,000 ML 999 ML IV (22:45)
[2023-02-15] MEDS: ondansetron 2 mg/ML SDV 2 mL 4 MG IVP (22:45)
[2023-02-15] MEDS: fentaNYL 50 mcg/mL INJ 2mL 25 MCG IVP (22:47)
[2023-02-16 00:16] VITALS: BP 114/64; PULSE 64; RESP 18; O2SAT 93
[2023-02-16 00:30] VITALS: RESP 18; O2SAT 97
[2023-02-16] MEDS: fentaNYL 50 mcg/mL INJ 2mL IVP (00:30)
[2023-02-16 04:00] VITALS: BP 114/66; PULSE 64; RESP 16; O2SAT 95
[2023-02-16 05:29] VITALS: BP 114/67; PULSE 73; RESP 18; O2SAT 92
[2023-02-16] MEDS: HYDROcodone-acetaminophen 5-325 mg Tablet 1 TAB PO (06:38)
[2023-02-16 06:44] VITALS: PULSE 74; RESP 18; O2SAT 96
== END 2023-02-16 06:40 | disposition home or self-care (01) ==
PROVIDERS: Physician Assistant; Emergency Provider Emergency Medicine; PCP Family Medicine
DX: S42.352A Displaced comminuted fracture of shaft of humerus, left arm, initial encounter for closed fracture (principal); F10.129 Alcohol abuse with intoxication, unspecified; Y90.8 Blood alcohol level of 240 mg/100 ml or more; Z79.82 Long term (current) use of aspirin; Z85.048 Personal history of other malignant neoplasm of rectum, rectosigmoid junction, and anus; J44.9 Chronic obstructive pulmonary disease, unspecified; Z86.73 Personal history of transient ischemic attack (TIA), and cerebral infarction without residual deficits; I10 Essential (primary) hypertension; I25.2 Old myocardial infarction; Z92.21 Personal history of antineoplastic chemotherapy; W07.XXXA Fall from chair, initial encounter
CPT/HCPCS: 29105; 36415; 73060; 80053; 80307; 85025; 96361; 96374; 96375; 96376; 99284; J2405; J3010; J7030

== ENCOUNTER 2023-02-18 06:00 | Outpatient (CLI) | payer MEDICARE, MEDICAID, SELFPAY | END 2023-02-18 06:01 | LOC: SPT 02-24 09:12 | PROVIDERS: PCP Family Medicine; Visit Provider Physician Assistant | DX: Z46.89 Encounter for fitting and adjustment of other specified devices (principal); S42.302D Unspecified fracture of shaft of humerus, left arm, subsequent encounter for fracture with routine healing; X58.XXXD Exposure to other specified factors, subsequent encounter | CPT/HCPCS: 97760; 99203; L3980 ==

== ENCOUNTER → 2023-02-18 15:35 | Outpatient (BNVA) | payer MEDICARE, MEDICAID, SELFPAY | PROVIDERS: PCP Family Medicine; Visit Provider Physician Assistant | DX: S42.352A Displaced comminuted fracture of shaft of humerus, left arm, initial encounter for closed fracture (principal); X58.XXXA Exposure to other specified factors, initial encounter; Z46.89 Encounter for fitting and adjustment of other specified devices; S42.302D Unspecified fracture of shaft of humerus, left arm, subsequent encounter for fracture with routine healing; X58.XXXD Exposure to other specified factors, subsequent encounter | CPT/HCPCS: 73060; 97760; 99203; L3980 ==

== ENCOUNTER 2023-02-21 17:11 | Emergency (ER) | payer MEDICARE, MEDICAID, SELFPAY ==
[2023-02-21 18:01] VITALS: PULSE 83; RESP 18; TEMP 36.8; O2SAT 97
[2023-02-21 19:00] VITALS: BP 120/79; PULSE 73; PULSE 78; RESP 20; O2SAT 97
--- NOTE | 2023-02-21 20:04 | PC.NURSE ---
Brother. Spoke with brother on phone concerning patient. Brother is concerned with not being able to care for patient at home and is upset patient is not admitted to the hospital. Explained to patient that we do not have tests back to determine that. The brother is upset and claims to file a malpractice suit if we do not admit the patient.
--- NOTE | 2023-02-21 20:10 | W.ED.EXTPRO ---
HPI - Extremity Problem General: Chief complaint: Extremity Problem,Nontraumatic Stated complaint: left arm pain Time Seen by Provider: 02/21/23 19:31 History of Present Illness: 72-year-old male presents to the emergency department from his home. The patient has been seen several times recently here in the emergency department for recurring falls and ultimately broke his left humerus. Patient has been seen as an outpatient by the orthopedic physician and changed out his splint into a orthopedic supportive device for his left arm and has a follow-up appointment for him in 1 week. Patient returns today stating that he wants to be placed in a senior care facility and that he is stating that his arm is broken and that is why he feels that he should be placed in a senior care facility. Review of Systems General: Reports: 10 or more systems reviewed and unremarkable except in HPI and below Musc: Reports: extremity pain PFSH ED PFSH: Medical History Acute dehydration Alcohol abuse Alcohol withdrawal Alcoholic intoxication Alcoholic ketoacidosis Alcoholism Anal cancer Anxiety Cholelithiasis COPD (chronic obstructive pulmonary disease) CVA (cerebral vascular accident) Depression Dizziness DVT (deep venous thrombosis) Generalized weakness Hypertension Hypomagnesemia Myocardial infarction Pancreatitis Peripheral vascular disease Status post chemoradiation Vomiting Surgical History History of ankle surgery History of tonsillectomy Hx of cataract extraction Hx of non-cataract eye surgery Status post colonoscopy Status post laparoscopic cholecystectomy (11/13/20) Family History Other Family history non-contributory Social History Alcohol intake: current Alcohol intake frequency: 3 or more drinks per day Substance/Drug Use: never Household members: family Housing: House Physical Exam Narrative: EXAM NARRATIVE: Constitutional: the patient appears well nourished and of normal development. Vital signs as documented. No acute distress at present. Alert and oriented-to person, place, time and situation. Head, eyes, ears, nose, mouth, throat: Normocephalic, atraumatic. Pupils-equal, round, reactive to light. No scleral icterus. Normal-appearing external ears. Normal appearing nasal turbinates, no drainage. No obvious oral lesions, posterior oropharynx without erythema or exudates. Neck: Supple, trachea is midline, no lymphadenopathy, no jugular venous distension, thyromegaly, or carotid bruits. Carotid upstrokes are brisk bilaterally. Lungs: clear to auscultation to all lung lomeli. Symmetrical rise and fall of chest, no obvious signs of increased work of breathing at present. Cardiac: Regular rate and rhythm, positive S1, S2. No murmurs, rubs or gallops that I can appreciate Abdomen: Soft, non-tender to palpation, normal active bowel sounds to all quadrants. No palpable masses, no organomegaly and abdominal bruits. Extremities: 2+ pulses in the upper extremities that are equal bilaterally, 2+ pulses in the lower extremities that are equal bilaterally. Non-edematous. Moves all extremities well, sensation to all extremities are noted. The patient does have an orthopedic splint device that appears to be intact and he also has a sling that he received from the orthopedic physician. Skin: Warm, dry, intact. Course Vital Signs: Vital signs: Vital Signs Temperature 98.2 F 02/21/23 18:01 Pulse Rate 73 02/21/23 19:00 Respiratory Rate 18 02/21/23 18:01 Pulse Oximetry 97 02/21/23 18:01 Oxygen Delivery Me thod Room Air 02/21/23 18:01 MDM - Extremity (Nontraumatic) Medical Decision Making I have extensively reviewed the previous several ER visits as well as their note I discussed with the ER charge nurse as well as the hospital transfer and pumphouse operator chief and per their request I have advised the patient that he unfortunately does not meet admission criteria. Patient asked that I call his family member and advised him and the family member did become very aggressive verbally on the phone demanding that the patient to be placed in a care facility. Medical Records I reviewed the patient's medical records. No radiology studies performed this visit Discharge Plan Discharge Patient Disposition: Home Clinical Impression: Closed fracture of upper extremity Condition: Stable Prescriptions: No Action aspirin [Adult Aspirin Regimen] 81 mg tablet,delayed release (DR/EC) 162 mg PO QAM nitroglycerin [Nitrostat] 0.4 mg tablet, sublingual 0.4 mg sublingual Q5M PRN (Reason: Chest Pain) Rx Instructions: do not exceed 3 doses per episode mecobalamin (vitamin B12) 1,000 mcg tablet,chewable 1,000 mcg PO DAILY (DME) foot soak basin See Rx Instructions .Route .MEDSUPPLY Qty: 1 0RF Rx Instructions: As directed to HOME (DME) xavier klein. See Rx Instructions .Route .MEDSUPPLY Qty: 1 0RF Rx Instructions: As directed hydrocodone-acetaminophen 5-325 mg tablet 1 tab PO Q4H PRN (Reason: Left Humerus Fracture) 5 Days Qty: 30 0RF metoprolol tartrate 25 mg tablet 25 mg PO BID Qty: 60 5RF atorvastatin 20 mg tablet 20 mg PO QAM Benadryl Allergy 25 mg Tablet 25 mg PO TID PRN (Reason: Allergy Symptoms) albuterol sulfate 90 mcg/actuation HFA aerosol inhaler 2 puff INHALATION Q6H PRN (Reason: Shortness Of Breath) folic acid 1 mg Tablet 1 mg PO DAILY Qty: 30 0RF Vitamin B-1 (mononitrate) 100 mg Tablet 100 mg PO DAILY Qty: 60 0RF chlordiazepoxide HCl 25 mg capsule 25 mg PO BID Qty: 5 0RF Rx Instructions: Take 25 mg every 12 hours day 1 Then take 25 mg at bedtime day 2,3,4 and then stop Discharge Orders: Discharge ED (Routine); Ordered 02/21/23 Ordered By: Peter Avalos Referrals: Medardo Bowers MD [Primary Care Provider] - Discharge Diet: Advance as tolerated Discharge Activity: Resume usual activity Patient Instructions: Opioid Safety, Pain Management Activity Restrictions/Additional Instructions: Activity Restrictions/Additional Instructions: Thank you for choosing [facility] for your healthcare needs today. Please realize that you were seen in the Emergency Department and that we are providing you with an emergency medical screening exam and this may not be complete and all inclusive of all the testing and or medical work-up that you may need to determine your ailment or severity of your illness. It is very important that you follow-up as instructed with your Primary care provider or Specialist for additional evaluation and to discuss your medical treatment plan. You may return to the Emergency Department should you have concerns or if your condition changes or worsens in any way. Coding Level of Care Code ED Perforator Typist for Katrin Mike
[2023-02-21 20:16] VITALS: BP 144/85; PULSE 84; RESP 22; O2SAT 96
[2023-02-21 20:53] VITALS: BP 135/87; PULSE 103; RESP 20; O2SAT 97
== END 2023-02-21 20:54 | disposition home or self-care (01) ==
PROVIDERS: Emergency Provider Internal Medicine; PCP Family Medicine
DX: S42.302A Unspecified fracture of shaft of humerus, left arm, initial encounter for closed fracture (principal); Z85.048 Personal history of other malignant neoplasm of rectum, rectosigmoid junction, and anus; J44.9 Chronic obstructive pulmonary disease, unspecified; Z86.73 Personal history of transient ischemic attack (TIA), and cerebral infarction without residual deficits; I10 Essential (primary) hypertension; I25.2 Old myocardial infarction; Z92.21 Personal history of antineoplastic chemotherapy; Z79.82 Long term (current) use of aspirin; W19.XXXA Unspecified fall, initial encounter
CPT/HCPCS: 99281

== ENCOUNTER 2023-02-22 15:42 | Inpatient (IN) | payer MEDICARE, MEDICAID, SELFPAY ==
[2023-02-22 15:44] VITALS: BP 116/57; PULSE 64; RESP 15; O2SAT 98
--- NOTE | 2023-02-22 15:52 | ED_ITS ---
Documented by User: Jackson Tamayo DO 02/22/23 15:56 HPI - Weakness 2 General: Chief complaint: Weakness Stated complaint: WEAKNESS Time Seen by Provider: 02/22/23 15:43 History of Present Illness: patient presents to the ER by EMS with complaints of generalized weakness. Patient states that his brother who was very paranoid about getting sick also wanted him to come out and be checked over again. Had been here multiple times For the same thing. Patient has no active complaints at this time other than being 72 years old and a little weak. Review of Systems 2 General: Reports: 10 or more systems reviewed and unremarkable except in HPI and below PFSH ED 2 PFSH: Medical History Acute dehydration Alcohol abuse Alcohol withdrawal Alcoholic intoxication Alcoholic ketoacidosis Alcoholism Anal cancer Anxiety Cholelithiasis COPD (chronic obstructive pulmonary disease) CVA (cerebral vascular accident) Depression Dizziness DVT (deep venous thrombosis) Generalized weakness Hypertension Hypomagnesemia Myocardial infarction Pancreatitis Peripheral vascular disease Status post chemoradiation Vomiting Surgical History History of ankle surgery History of tonsillectomy Hx of cataract extraction Hx of non-cataract eye surgery Status post colonoscopy Status post laparoscopic cholecystectomy (11/13/20) Family History Other Family history non-contributory Social History Alcohol intake: current Alcohol intake frequency: 3 or more drinks per day Substance/Drug Use: never Household members: family Housing: House Physical Exam 2 Const: COMMON NORMALS: no acute distress, average body habitus, patient oriented x3, no limitations, healthy appearing, alert and well nourished HENMT: COMMON NORMALS: normocephalic, atraumatic, hearing grossly normal bilaterally, external ears normal, Normal external nose present, moist oral mucous membranes and oropharynx normal HEAD & SCALP: normocephalic and atraumatic NOSE: Normal external nose present EXTERNAL EAR: Yes external ears normal Neck/C-Spine: COMMON NORMALS: no JVD Chest: COMMONS NORMALS: normal inspection of the chest and normal palpation of entire chest wall Resp: COMMON NORMALS: normal respiratory effort, No retractions, No use of accessory muscles and clear to auscultation bilaterally AUSCULTATION: clear to auscultation bilaterally Cardio: COMMON NORMALS: no JVD, regular rate, regular rhythm, S1 normal heart sound present, S2 normal heart sound present, No gallops present (Cardio), No clicks present (Cardio), No murmurs present (Cardio) and No rub (Cardio) R ATE: regular rate RHYTHM: regular rhythm HEART SOUNDS: S1 normal heart sound present and S2 normal heart sound present GI: COMMON NORMALS: Normal to inspection, nondistended, normoactive bowel sounds present, Soft to palpation, non-tender, No hepatosplenomegaly present and no masses PALPATION: Yes Soft to palpation and Yes No hepatosplenomegaly present : OTHER: Wet trousers and smells of stale urine very strong Neuro: COMMON NORMALS: patient oriented x3 SENSORIUM/ORIENTATION: Yes alert Course 2 Vital Signs: Vital signs: Vital Signs Pulse Rate 66 02/22/23 19:29 Respiratory Rate 20 H 02/22/23 19:29 Blood Pressure 128/79 02/22/23 19:29 Pulse Oximetry 96 02/22/23 19:29 Oxygen Delivery Me thod Room Air 02/22/23 16:24 MDM - Weakness Differential Diagnosis Unlikely acute myocardial infarction, anemia, hypoglycemia, hypothyroidism, rhabdomyolysis, sepsis or dehydration Medical Records I reviewed the patient's medical records. Lab Data I reviewed the patient's lab results. 02/22/23 17:46 02/22/23 17:46 Radiology Impressions Chest X-Ray 02/22/23 15:53 IMPRESSION: 1. Persistent patchy opacification in the left lower lobe suggesting atelectasis versus pneumonia. Recommend followup chest imaging to insure resolution of these findings. 2. Incidental/nonacute findings are listed in the report. Abdomen X-Ray 02/22/23 15:54 IMPRESSION: 1. No evidence for bowel obstruction or perforation. 2. Incidental/nonacute findings are listed in the report. Laboratory Results WBC 9.19 10^3/uL (3.29-11.43) 02/22/23 17:46 Corrected WBC Cancelled 02/22/23 16:46 RBC 3.08 10^6/uL (3.85-5.65) L 02/22/23 17:46 Hgb 10.70 g/dL (11.27-16.99) L 02/22/23 17:46 Hct 34.5 % (37-53) L 02/22/23 17:46 MCV 112.0 fl (82-101) H 02/22/23 17:46 MCH 34.7 pg (27-33) H 02/22/23 17:46 MCHC 31.0 g/dL (30-55) 02/22/23 17:46 RDW 16.6 % (12.1-15.1) H 02/22/23 17:46 Plt Count 124 10^3/cmm (157-399) L 02/22/23 17:46 MPV 10.9 fL (7.4-10.4) H 02/22/23 17:46 Gran % Cancelled 02/22/23 16:46 Neut % (Auto) 78.6 % 02/22/23 17:46 Lymph % (Auto) 11.3 % 02/22/23 17:46 [place] % (Auto) 8.2 % 02/22/23 17:46 Eos % (Auto) 0.9 % 02/22/23 17:46 Baso % (Auto) 0.7 % 02/22/23 17:46 Neut # (Auto) 7.23 10^3/uL (1.8-7.7) 02/22/23 17:46 Lymph # (Auto) 1.0 10^3/uL (0.8-4.8) 02/22/23 17:46 [place] # (Auto) 0.8 10^3/uL (0.2-0.9) 02/22/23 17:46 Eos # (Auto) 0.1 10^3/uL (0.0-0.8) 02/22/23 17:46 Baso # (Auto) 0.1 10^3/uL (0.0-0.1) 02/22/23 17:46 Absolute Gran (auto) Cancelled 02/22/23 16:46 Nucleated RBC % (auto) 0 % 02/22/23 17:46 Nucleated RBCs # 0.0 /100WBC 02/22/23 17:46 Sodium 138 mmol/L (136-145) 02/22/23 17:46 Potassium 3.8 mmol/L (3.5-5.1) 02/22/23 17:46 Chloride 101 mmol/L (98-107) 02/22/23 17:46 Carbon Dioxide 20 mmol/L (22-29) L 02/22/23 17:46 Anion Gap 20.8 (5-19) H 02/22/23 17:46 BUN 13 mg/dL (8-23) 02/22/23 17:46 Creatinine 0.4 mg/dL (0.7-1.2) L 02/22/23 17:46 GFR Calculation Not Reportable 02/22/23 17:46 Glucose 76 mg/dL (65-115) 02/22/23 17:46 Calculated Osmolality 285 mOsm/kg (285-295) 02/22/23 17:46 Calcium 8.5 mg/dL (8.5-10.5) 02/22/23 17:46 Total Bilirubin 0.7 mg/dL (0.15-1.2) 02/22/23 17:46 AST 36 U/L (0-40) 02/22/23 17:46 ALT 16 U/L (0-41) 02/22/23 17:46 Alkaline Phosphatase 80 U/L (40-130) 02/22/23 17:46 Total Protein 6.0 g/dL (6.6-8.7) L 02/22/23 17:46 Albumin 3.1 g/dL (3.5-5.2) L 02/22/23 17:46 Globulin 2.9 g/dL (1.3-4.6) 02/22/23 17:46 Ethyl Alcohol 257 mg/dL (0-10) H 02/22/23 17:46 All radiology interpretation(s) finalized by discharge Discharge Plan Discharge Patient Disposition: Home Admit Provider: Michael Osborn Clinical Impression: Alcohol intoxication, Pneumonia, Frequent falls Condition: Stable Coding Level of Care Code ED Assembly Instructions Writer for Chg Fwd Documented by User: Jony Beasley MD 02/22/23 20:56 HPI - Weakness 2 General: Chief complaint: Weakness Stated complaint: WEAKNESS Time Seen by Provider: 02/22/23 15:43 PFSH ED 2 PFSH: Medical History Acute dehydration Alcohol abuse Alcohol withdrawal Alcoholic intoxication Alcoholic ketoacidosis Alcoholism Anal cancer Anxiety Cholelithiasis COPD (chronic obstructive pulmonary disease) CVA (cerebral vascular accident) Depression Dizziness DVT (deep venous thrombosis) Generalized weakness Hypertension Hypomagnesemia Myocardial infarction Pancreatitis Peripheral vascular disease Status post chemoradiation Vomiting Surgical History History of ankle surgery History of tonsillectomy Hx of cataract extraction Hx of non-cataract eye surgery Status post colonoscopy Status post laparoscopic cholecystectomy (11/13/20) Family History Other Family history non-contributory Social History Alcohol intake: current Alcohol intake frequency: 3 or more drinks per day Substance/Drug Use: never Household members: family Housing: House Course 2 Vital Signs: Vital signs: Vital Signs Pulse Rate 66 02/22/23 19:29 Respiratory Rate 20 H 02/22/23 19:29 Blood Pressure 128/79 02/22/23 19:29 Pulse Oximetry 96 02/22/23 19:29 Oxygen Delivery Me thod Room Air 02/22/23 16:24 MDM - Weakness Medical Decision Making Patient presents here with alcohol intoxication along with possible pneumonia he has had frequent falls as well he has been seen in the ER multiple times for falls along with alcohol intoxication. Lab Data 02/22/23 17:46 02/22/23 17:46 Radiology Impressions Chest X-Ray 02/22/23 15:53 IMPRESSION: 1. Persistent patchy opacification in the left lower lobe suggesting atelectasis versus pneumonia. Recommend followup chest imaging to insure resolution of these findings. 2. Incidental/nonacute findings are listed in the report. Abdomen X-Ray 02/22/23 15:54 IMPRESSION: 1. No evidence for bowel obstruction or perforation. 2. Incidental/nonacute findings are listed in the report. Laboratory Results WBC 9.19 10^3/uL (3.29-11.43) 02/22/23 17:46 Corrected WBC Cancelled 02/22/23 16:46 RBC 3.08 10^6/uL (3.85-5.65) L 02/22/23 17:46 Hgb 10.70 g/dL (11.27-16.99) L 02/22/23 17:46 Hct 34.5 % (37-53) L 02/22/23 17:46 MCV 112.0 fl (82-101) H 02/22/23 17:46 MCH 34.7 pg (27-33) H 02/22/23 17:46 MCHC 31.0 g/dL (30-55) 02/22/23 17:46 RDW 16.6 % (12.1-15.1) H 02/22/23 17:46 Plt Count 124 10^3/cmm (157-399) L 02/22/23 17:46 MPV 10.9 fL (7.4-10.4) H 02/22/23 17:46 Gran % Cancelled 02/22/23 16:46 Neut % (Auto) 78.6 % 02/22/23 17:46 Lymph % (Auto) 11.3 % 02/22/23 17:46 [place] % (Auto) 8.2 % 02/22/23 17:46 Eos % (Auto) 0.9 % 02/22/23 17:46 Baso % (Auto) 0.7 % 02/22/23 17:46 Neut # (Auto) 7.23 10^3/uL (1.8-7.7) 02/22/23 17:46 Lymph # (Auto) 1.0 10^3/uL (0.8-4.8) 02/22/23 17:46 [place] # (Auto) 0.8 10^3/uL (0.2-0.9) 02/22/23 17:46 Eos # (Auto) 0.1 10^3/uL (0.0-0.8) 02/22/23 17:46 Baso # (Auto) 0.1 10^3/uL (0.0-0.1) 02/22/23 17:46 Absolute Gran (auto) Cancelled 02/22/23 16:46 Nucleated RBC % (auto) 0 % 02/22/23 17:46 Nucleated RBCs # 0.0 /100WBC 02/22/23 17:46 Sodium 138 mmol/L (136-145) 02/22/23 17:46 Potassium 3.8 mmol/L (3.5-5.1) 02/22/23 17:46 Chloride 101 mmol/L (98-107) 02/22/23 17:46 Carbon Dioxide 20 mmol/L (22-29) L 02/22/23 17:46 Anion Gap 20.8 (5-19) H 02/22/23 17:46 BUN 13 mg/dL (8-23) 02/22/23 17:46 Creatinine 0.4 mg/dL (0.7-1.2) L 02/22/23 17:46 GFR Calculation Not Reportable 02/22/23 17:46 Glucose 76 mg/dL (65-115) 02/22/23 17:46 Calculated Osmolality 285 mOsm/kg (285-295) 02/22/23 17:46 Calcium 8.5 mg/dL (8.5-10.5) 02/22/23 17:46 Total Bilirubin 0.7 mg/dL (0.15-1.2) 02/22/23 17:46 AST 36 U/L (0-40) 02/22/23 17:46 ALT 16 U/L (0-41) 02/22/23 17:46 Alkaline Phosphatase 80 U/L (40-130) 02/22/23 17:46 Total Protein 6.0 g/dL (6.6-8.7) L 02/22/23 17:46 Albumin 3.1 g/dL (3.5-5.2) L 02/22/23 17:46 Globulin 2.9 g/dL (1.3-4.6) 02/22/23 17:46 Ethyl Alcohol 257 mg/dL (0-10) H 02/22/23 17:46 Discharge Plan Discharge Patient Disposition: Home Admit Provider: Michael Osborn Clinical Impression: Alcohol intoxication, Pneumonia, Frequent falls Condition: Stable Coding Level of Care Code ED Assembly Instructions Writer for Katrin Mike
--- NOTE | 2023-02-22 15:53 | XRR_ITS ---
PROCEDURE INFORMATION: Exam: XR Chest Exam date and time: 02/22/2023 4:21 PM Age: 72 years old Clinical indication: Cough TECHNIQUE: Imaging protocol: Radiologic exam of the chest. Views: 1 view. COMPARISON: CR (CHEST, ) 02/14/2023 11:50 PM FINDINGS: Lungs: Persistent patchy opacification in the left lower lobe suggesting atelectasis versus pneumonia. Pleural spaces: No pleural effusion. No pneumothorax. Heart/Mediastinum: Stable moderate enlargement of the cardiac silhouette. Mediastinal contours are unremarkable. Vasculature: Stable vascular calcifications in the aorta. Bones/joints: Deformity of the proximal right humerus consistent with an old, healed fracture. Multiple old, bilateral rib fractures. Bones are diffusely osteopenic. Degenerative changes in the spine and shoulders. Osseous findings are stable. XR/XR chest 1V portable [id number] IMPRESSION: 1. Persistent patchy opacification in the left lower lobe suggesting atelectasis versus pneumonia. Recommend followup chest imaging to insure resolution of these findings. 2. Incidental/nonacute findings are listed in the report.
--- NOTE | 2023-02-22 15:54 | XRR_ITS ---
PROCEDURE INFORMATION: Exam: XR Abdomen Exam date and time: 02/22/2023 4:23 PM Age: 72 years old Clinical indication: Constipation TECHNIQUE: Imaging protocol: Radiologic exam of the abdomen. Views: Frontal supine view of the abdomen. 1 View. COMPARISON: CT abdomen pelvis w con* [id number] 03/29/2022 4:47 PM FINDINGS: Gastrointestinal tract: No evidence for bowel obstruction or perforation. Intraperitoneal space: Stable findings consistent with a previous cholecystectomy with surgical clips in the right upper quadrant. No free intraperitoneal air. Organs: No organomegaly. Vasculature: Multiple calcifications in the pelvis most likely representing calcified phleboliths. Stable atherosclerotic calcifications in the visualized arteries. Bones/joints: Bones are diffusely osteopenic. Degenerative changes in the spine, sacroiliac joints, and hips. Osseous findings are stable. XR/XR abdomen 1V* [id number] IMPRESSION: 1. No evidence for bowel obstruction or perforation. 2. Incidental/nonacute findings are listed in the report.
[2023-02-22 16:24] VITALS: BP 116/57; PULSE 85; RESP 14; O2SAT 97
[2023-02-22 17:49] LABS: Basophils # 0.1 10^3/uL (0.0-0.1); Basophils % 0.7 %; Eosinophils # 0.1 10^3/uL (0.0-0.8); Eosinophils % 0.9 %; Hematocrit 34.5 % (37-53); Lymphocytes % 11.3 %; Mean Corpuscular Hemoglobin 34.7 pg (27-33); Mean Platelet Volume 10.9 fL (7.4-10.4); Monocytes # 0.8 10^3/uL (0.2-0.9); Monocytes % 8.2 %; Neutrophils # 7.23 10^3/uL (1.8-7.7); Neutrophils % 78.6 %; Nucleated Red Blood Cells % 0 %; Platelet Count 124 10^3/cmm (157-399); Red Blood Count 3.08 10^6/uL (3.85-5.65); Red Cell Distribution Width 16.6 % (12.1-15.1); White Blood Count 9.19 10^3/uL (3.29-11.43)
[2023-02-22 18:41] LABS: Alcohol Level 257 mg/dL (0-10)
[2023-02-22 18:55] LABS: Alanine Aminotransferase 16 U/L (0-41); Albumin Level 3.1 g/dL (3.5-5.2); Alkaline Phosphatase 80 U/L (40-130); Blood Urea Nitrogen 13 mg/dL (8-23); Calcium 8.5 mg/dL (8.5-10.5); Carbon Dioxide 20 mmol/L (22-29); Chloride 101 mmol/L (98-107); Globulin 2.9 g/dL (1.3-4.6); Glucose 76 mg/dL (65-115); Osmolality Calculated 285 mOsm/kg (285-295); Sodium 138 mmol/L (136-145); Total Bilirubin 0.7 mg/dL (0.15-1.2)
[2023-02-22 18:56] LABS: Anion Gap 20.8 (5-19); Aspartate Amino Transferase 36 U/L (0-40); Potassium 3.8 mmol/L (3.5-5.1)
[2023-02-22] MEDS: azithromycin 500 MG in sodium chloride 0.9% 250 ML 250 MG IV (19:21)
[2023-02-22 19:29] VITALS: BP 128/79; PULSE 66; RESP 20; O2SAT 96
--- NOTE | 2023-02-22 20:38 | PM.HP ---
Providers/Chief Complaint Primary Care Provider: Medardo Bowers MD Chief Complaint: WEAKNESS History of Present Illness Gerardo Millan is a 72 year old male with recurrent admissions related to recurrent falls, alcohol intoxication. Patient stating that he lives with his half-brother, drinks vodka on daily basis. He was seen in the ER multiple times, he was diagnosed with a left humerus fracture on 02/15, splint was applied, presented today for recurrent falls, elbow intoxication not doing well. In the ER he has been diagnosed with left lower lobe pneumonia concern for aspiration pneumonia he is afebrile requiring no oxygen. He is tachycardic frail and cachectic. Does have a splint on left arm with swelling of his left forearm he is able to move his fingers, I have requested Dr. Sterling to evaluate him in the morning to see if anything else is needed at this point Review of Systems Const: Denies: fever(s) Eyes: Denies: change in vision ENMT: Denies: throat pain Card: Denies: chest pain Resp: Reports: dyspnea GI: Denies: abdominal pain : Denies: flank pain Medications/Allergies Home Medications Medication Instructions Recorded Confirmed Last Taken Type aspirin 81 mg tablet,delayed 162 mg PO QAM 10/18/20 02/22/23 02/22/23 History release (Adult Aspirin Regimen) nitroglycerin 0.4 mg sublingual 0.4 mg sublingual Q5M PRN Chest 10/18/20 02/22/23 Unknown History tablet (Nitrostat) Pain atorvastatin 20 mg tablet 20 mg PO QAM 09/14/22 02/22/23 02/22/23 History foot soak basin #1 ea 12/09/22 02/22/23 Unknown Rx hydrocodone 5 mg-acetaminophen 325 1 tab PO Q4H PRN Left Humerus 02/18/23 02/22/23 Unknown Rx mg tablet Fracture 5 days #30 tabs park brace. #1 ea 02/18/23 02/22/23 Unknown Rx multivitamin 1 tab PO QAM 02/22/23 02/22/23 02/22/23 History Allergies Allergy/AdvReac Type Severity Reaction Status Date / Time corn Allergy ADR-Nausea Verified 02/18/23 15:21 [place] Allergy Uknown Verified 02/18/23 15:21 pear Allergy ALGY-Rash Verified 02/18/23 15:21 Penicillins Allergy ALGY-Difficulty Verified 02/18/23 15:21 Breathing PFSH Acute PFSH: Medical History Acute dehydration Alcohol abuse Alcohol withdrawal Alcoholic intoxication Alcoholic ketoacidosis Alcoholism Anal cancer Anxiety Cholelithiasis COPD (chronic obstructive pulmonary disease) CVA (cerebral vascular accident) Depression Dizziness DVT (deep venous thrombosis) Generalized weakness Hypertension Hypomagnesemia Myocardial infarction Pancreatitis Peripheral vascular disease Status post chemoradiation Vomiting Surgical History History of ankle surgery History of tonsillectomy Hx of cataract extraction Hx of non-cataract eye surgery Status post colonoscopy Status post laparoscopic cholecystectomy (11/13/20) Family History Other Family history non-contributory Social History Alcohol intake: current Alcohol intake frequency: 3 or more drinks per day Substance/Drug Use: never Household members: family Housing: House Vitals/I&O/Wt Last Vital Signs Pulse 66 02/22/23 19:29 Resp 20 H 02/22/23 19:29 BP 128/79 02/22/23 19:29 Pulse Ox 96 02/22/23 19:29 O2 Del Method Room Air 02/22/23 16:24 Physical Exam Narrative: Frail Left arm in splint Forearm swelling noticed He is able to move his fingers Cachectic malnourished Unkept appearance S1, S2 Foul-smelling clouds Currently on room air No new focal deficit Patient asking for food Data 02/22/23 17:46 02/22/23 17:46 Micro: Microbiology 02/22/23 18:57 Blood Culture - Preliminary Blood SPECIMEN COLLECTED 02/22/23 18:50 Blood Culture - Preliminary Blood SPECIMEN COLLECTED A&P Assessment and plan (1) Closed fracture of upper extremity: (2) Pneumonia: (3) Frequent falls: (4) Alcohol intoxication: (5) Fracture of shaft of left humerus: Qualifiers: Encounter type: initial encounter Fracture alignment: displaced Fracture morphology: oblique Fracture type: closed Qualified Code(s): S42.332A - Displaced oblique fracture of shaft of humerus, left arm, initial encounter for closed fracture (6) Peripheral vascular disease: Plan Alcohol intoxication We will start patient on phenobarbital scheduled doses Start thiamine and folic acid Recurrent falls Left humerus fracture Currently arm is in a splint No active vascular compromise Requested Dr. Sterling to evaluate him in the morning Continue conservative management Aspiration pneumonia Start ceftriaxone and p.o. antibiotics Currently on room air Patient is not doing well at all, failure to thrive Recurrent falls Lives with his half-brother He might need intermediate placement Request PT evaluation Thrombocytopenia, anemia: Stable DVT prophylaxis added Full code Regular diet Attestations Medical Necessity Statement*: More than 2 midnights anticipated Diagnoses Closed fracture of upper extremity S42.309A Pneumonia J18.9 Frequent falls R29.6 Alcohol intoxication F10.929 Fracture of shaft of left humerus S42.332A Encounter type: initial encounter Fracture alignment: displaced Fracture morphology: oblique Fracture type: closed Peripheral vascular disease I73.9
[2023-02-22 21:11] VITALS: BP 122/59; PULSE 107; RESP 18; O2SAT 94
[2023-02-22 21:23] VITALS: BP 124/73; PULSE 65; RESP 18; TEMP 36.6; O2SAT 95
[2023-02-22 21:27] VITALS: BMI 19.4
[2023-02-22 23:26] VITALS: BP 120/71; PULSE 61; RESP 16; TEMP 36.8; O2SAT 96
[2023-02-22] MEDS: sodium chloride 0.9% 1,000 ML 75 ML IV (23:29)
[2023-02-22] MEDS: cefTRIAXone 1,000 MG in sodium chloride 0.9% (plus) 50 ML 100 MG IV (23:30)
[2023-02-22] MEDS: PHENobarbital 32.4 mg Tablet 97.2 MG PO (23:31)
[2023-02-23] VITALS (8 sets, daily range): BP systolic 113–127; BP diastolic 65–73; PULSE 62–76; RESP 15–17; TEMP 36.7–37.4; O2SAT 94–96
--- NOTE | 2023-02-23 04:09 | PC.NURSE ---
Patient refused loera catheter insertion. Patient claims he does not need it. Nurse educated patient on reason for loera catheter placement but he still declined. Nurse notified Dr. Osborn of patient refusal. Patient had 100 mls of jack urine in urinal and one void in the bed, since he arrived to the floor at 2119. Nurse bladder scanned patient and patient had 4mls in bladder. Patient denies pain at this time.
[2023-02-23 05:26] LABS: Basophils # 0.1 10^3/uL (0.0-0.1); Basophils % 0.7 %; Eosinophils # 0.1 10^3/uL (0.0-0.8); Eosinophils % 1.1 %; Hematocrit 29.7 % (37-53); Lymphocytes # 1.2 10^3/uL (0.8-4.8); Lymphocytes % 14.5 %; Mean Corpuscular Hemoglobin 34.2 pg (27-33); Mean Corpuscular Volume 106.8 fl (82-101); Mean Platelet Volume 9.6 fL (7.4-10.4); Neutrophils # 6.06 10^3/uL (1.8-7.7); Neutrophils % 71.2 %; Nucleated Red Blood Cells % 0.2 %; Platelet Count 185 10^3/cmm (157-399); Red Blood Count 2.78 10^6/uL (3.85-5.65); Red Cell Distribution Width 16.6 % (12.1-15.1)
[2023-02-23] MEDS: PHENobarbital 32.4 mg Tablet 97.2 MG PO ×3 (05:41→16:42)
[2023-02-23 05:50] LABS: Blood Urea Nitrogen 13 mg/dL (8-23); Glucose 74 mg/dL (65-115)
[2023-02-23 06:07] LABS: Osmolality Calculated 287 mOsm/kg (285-295)
[2023-02-23 06:11] LABS: C Reactive Protein 68.8 mg/L (0.0-4.9); Calcium 8.1 mg/dL (8.5-10.5); Carbon Dioxide 20 mmol/L (22-29); Chloride 102 mmol/L (98-107); Magnesium 1.6 mg/dL (1.7-2.3); Sodium 139 mmol/L (136-145)
[2023-02-23 06:13] LABS: Anion Gap 18.4 (5-19); Potassium 4.4 mmol/L (3.5-5.1)
[2023-02-23] MEDS: enoxaparin 40 mg/0.4 mL Syringe SUBCUT (08:34)
[2023-02-23] MEDS: thiamine 100 mg Tablet PO (08:35)
[2023-02-23] MEDS: folic acid 1 mg Tablet PO (08:35)
[2023-02-23 08:54] LABS: Add Urine Microscopic? NO; Charge for UA Resulting for Rev
[2023-02-23 09:13] LABS: Bilirubin Urine Neg (Negative); Blood Urine Neg (Negative); Glucose Urine UA Norm (Normal); Ketones Urine 3+ (Negative); Leukocyte Esterase Urine Negative (Negative); Nitrate Urine Negative (Negative); Protein Urine Neg (Negative); Urine Appearance Clear (CLEAR); Urine Color Yellow (Yellow); Urobilinogen Urine 1 mg/dL (Negative); pH Urine 5 (5-7)
[2023-02-23] MEDS: magnesium lactate 84 mg Tablet PO ×2 (09:51→16:41)
[2023-02-23 10:40] LABS: Thyroid Stimulating Hormone 0.57 uIU/mL (0.27-4.20); Vitamin B12 392 pg/mL (232-1245)
--- NOTE | 2023-02-23 11:06 | XRR_ITS ---
PROCEDURE INFORMATION: Exam: XR Left Elbow Exam date and time: 02/23/2023 12:44 PM Age: 72 years old Clinical indication: Injury or trauma; Fall; Blunt trauma (contusions or hematomas); Elbow; Left; Additional info: Fracture TECHNIQUE: Imaging protocol: Radiologic exam of the left elbow. Views: 3 or more views. COMPARISON: CR (UP EXM, ) 02/23/2023 12:44 PM FINDINGS: Bones/joints: Comminuted displaced fractures through the distal humeral diaphysis with multiple free fracture fragments and adjacent soft tissue hematoma. Soft tissues: See Bones/joints finding. Elevated anterior fat pad sign. XR/XR elbow LT min 3V* [id number] IMPRESSION: Comminuted displaced fractures through the distal humeral diaphysis with multiple free fracture fragments and adjacent soft tissue hematoma.
--- NOTE | 2023-02-23 11:06 | XRR_ITS ---
PROCEDURE INFORMATION: Exam: XR Left Humerus Exam date and time: 02/23/2023 12:44 PM Age: 72 years old Clinical indication: Injury or trauma; Fall; Blunt trauma (contusions or hematomas); Arm, upper; Left; Additional info: Humerus fracture TECHNIQUE: Imaging protocol: Radiologic exam of the left humerus. Views: 2 or more views. COMPARISON: [place] [id number] 02/18/2023 3:42 PM FINDINGS: Bones/joints: Comminuted displaced fractures through the distal humeral diaphysis with free fracture fragments and adjacent soft tissue hematoma. Old/healed left rib fracture sites. Soft tissues: See Bones/joints finding. XR/[place] [id number] IMPRESSION: Comminuted displaced fractures through the distal humeral diaphysis.
[2023-02-23 11:12] LABS: Amphetamines Screen Urine Negative (Negative); Barbiturates Screen Urine Positive (Negative); Benzodiazepines Screen Urine Negative (Negative); Cocaine Screen Urine Negative (Negative); Opiate Screen Urine Positive (Negative); PCP Screen Urine Negative (Negative); THC Screen Urine Negative (Negative)
--- NOTE | 2023-02-23 12:44 | ECG_ITS ---
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 Measurements Intervals Joshua Rate: 72 P: 87 AR: 129 QRS: 12 QRSD: 89 T: 40 QT: 401 QTc: 439 Interpretive Statements SINUS RHYTHM NONSPECIFIC T-WAVE ABNORMALITY Borderline EKG Electronically Signed On 02-23-2023 13:54:02 LPN MEDICAL ASSISTANT by Weston Tanner M.D. [id number]
--- NOTE | 2023-02-23 12:45 | PM.PN ---
Subjective Subjective: Patient was seen this morning, he is alert to person, to place, not to time he can follow commands, he does have a mild tremor, denies visual, auditory, tactile hallucinations, no fevers, no chills, no cough, Vitals/I&O/Wt Last Vital Signs Temp 98.3 F 02/23/23 11:00 Pulse 62 02/23/23 11:00 Resp 16 02/23/23 11:00 BP 122/65 02/23/23 11:00 Pulse Ox 95 02/23/23 11:00 O2 Del Method Room Air 02/23/23 11:00 02/22/23 02/23/23 02/23/23 22:59 06:59 14:59 Intake Total 970 / 970 490 / 490 Output Total 100 / 100 100 / 100 Balance 870 / 870 390 / 390 Weight last 48 hrs Weight 67.812 kg Weight 67.948 kg Weight 65.045 kg Physical Exam Const: COMMON NORMALS: no acute distress and patient oriented x3 Resp: COMMON NORMALS: normal respiratory effort, No retractions and No use of accessory muscles AUSCULTATION: crackles Cardio: COMMON NORMALS: regular rate, regular rhythm, S1 normal heart sound present and S2 normal heart sound present RATE: regular rate RHYTHM: regular rhythm HEART SOUNDS: S1 normal heart sound present and S2 normal heart sound present GI: COMMON NORMALS: Normal to inspection, nondistended, normoactive bowel sounds present and non-tender Extremity: COMMON NORMALS: no pedal edema Neuro: COMMON NORMALS: patient oriented x3 Psych: COMMON NORMALS: mental status grossly normal Skin: NARRATIVE SKIN EXAM: Have peripheral muscle wasting, temporal muscle wasting, bilateral thighs, calves, shoulders, arms Data 02/23/23 05:15 02/23/23 05:15 Micro: Microbiology 02/22/23 18:57 Blood Culture - Preliminary Blood SPECIMEN COLLECTED 02/22/23 18:50 Blood Culture - Preliminary Blood SPECIMEN COLLECTED A&P Assessment and plan (1) Closed fracture of upper extremity: (2) Pneumonia: (3) Frequent falls: (4) Alcohol intoxication: (5) Fracture of shaft of left humerus: Qualifiers: Encounter type: initial encounter Fracture alignment: displaced Fracture morphology: oblique Fracture type: closed Qualified Code(s): S42.332A - Displaced oblique fracture of shaft of humerus, left arm, initial encounter for closed fracture (6) Peripheral vascular disease: (7) Protein calorie malnutrition: (8) Physical deconditioning: (9) Muscle wasting: (10) Acute encephalopathy: Plan Alcohol intoxication We will start patient on phenobarbital scheduled doses Start thiamine and folic acid ? CIWA protocol ? CT scan head Recurrent falls Left humerus fracture Currently arm is in a splint No active vascular compromise Requested Dr. Sterling to evaluate him in the morning Continue conservative management Aspiration pneumonia Start ceftriaxone and p.o. antibiotics Currently on room air Patient is not doing well at all, failure to thrive ? Protein calorie malnutrition, physical deconditioning, muscle wasting, likely related to alcoholism ? PT OT, Dietary eval for ? Speech therapy eval Recurrent falls Lives with his half-brother He might need intermediate placement Request PT evaluation History of CAD, continue aspirin, statin, nitro as needed for chest pain, Thrombocytopenia, anemia: Stable DVT prophylaxis added Full code Regular diet Attestations Medical Necessity Statement*: Patient requires hospitalization for alcohol withdrawal, aspiration pneumonia, encephalopathy, deconditioning, falls, Diagnoses Closed fracture of upper extremity S42.309A Pneumonia J18.9 Frequent falls R29.6 Alcohol intoxication F10.929 Fracture of shaft of left humerus S42.332A Encounter type: initial encounter Fracture alignment: displaced Fracture morphology: oblique Fracture type: closed Peripheral vascular disease I73.9 Protein calorie malnutrition E46 Physical deconditioning R53.81 Muscle wasting M62.50 Acute encephalopathy G93.40
--- NOTE | 2023-02-23 12:48 | CTR_ITS ---
PROCEDURE INFORMATION: Exam: CT Head Without Contrast Exam date and time: 02/23/2023 4:08 PM Age: 72 years old Clinical indication: Altered mental status/memory loss; Prior surgery; Surgery date: 6+ months; Surgery type: Lt eye; TECHNIQUE: Imaging protocol: Computed tomography of the head without contrast. Radiation optimization: All CT scans at this facility use at least one of these dose optimization techniques: automated exposure control; mA and/or kV adjustment per patient size (includes targeted exams where dose is matched to clinical indication); or iterative reconstruction. REPORTING DATA: Count of CT and Cardiac NM exams in prior 12 months: This patient has received 2 known CTs and 0 known cardiac nuclear medicine studies in the 12 months prior to the current study. COMPARISON: CT head wo con* [id number] 02/14/2023 11:56 PM RADIATION DOSE METRICS: Total DLP (mGy-cm): 1105.4 FINDINGS: Brain: There is mild diffuse cerebral atrophy present, consistent with this patient's age. Periventricular and subcortical white matter low densities are present which at this age likely represent microvascular ischemic change.Chronic lacunar infarct versus prominent perivascular space in the left lentiform nucleus. No evidence for large acute ischemic infarction. Please note acute ischemia can be occult by head CT. No evidence for acute intracranial hemorrhage. Cerebral ventricles: No ventriculomegaly. Paranasal sinuses: There is mucosal thickening of the left maxillary sinus also seen on the prior CT scan. Mastoid air cells: Visualized mastoid air cells are well aerated. Orbital cavities: Left globe postoperative changes. Bones/joints: Unremarkable. No acute fracture. Soft tissues: Unremarkable. CT/CT head wo con* [id number] IMPRESSION: There are senescent changes of the brain as described above. No evidence for large acute ischemic infarction or acute intracranial injury.
[2023-02-23 13:13] LABS: Ferritin 431 ng/mL (30-400); Iron 83 ug/dL (59-158)
[2023-02-23 14:03] LABS: Troponin(5th) Baseline 15 ng/L (0-15)
--- NOTE | 2023-02-23 14:44 | ECG_ITS ---
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 Measurements Intervals [place] Rate: 70 P: 93 ND: 130 QRS: 11 QRSD: 90 T: 48 QT: 434 QTc: 471 Interpretive Statements SINUS RHYTHM Normal EKG Compared to ECG 02/23/2023 13:52:58 T-wave abnormality no longer present Electronically Signed On 02-24-2023 9:19:00 MECHANICAL SYSTEMS DESIGNER by Weston Tanner M.D. [id number]
[2023-02-23] MEDS: sodium chloride 0.9% 1,000 ML 75 ML IV (14:52)
[2023-02-23 16:25] LABS: Troponin 5 2HR 15.88 ng/L (0-15)
[2023-02-23 16:27] LABS: Troponin 5 2HR Delta 0.88 ABS# (0-10)
--- NOTE | 2023-02-23 17:28 | PM.CONSULT ---
Providers/Reason For Consult Consulting Physician/Specialty*: Gianna Sterling MD Reason for Consult*: Comminuted left humerus fracture Requesting Physician: King Rodriguez MD Attending Physician: King Rodriguez MD Primary Care Provider: Medardo Bowers MD History of Present Illness History of Present Illness Gerardo Millan is a 72 year old male who presented through the emergency department with a comminuted left humerus fracture with a butterfly fragment. I was called in consultation, as the patient has been in the emergency department multiple times. After presenting last evening, they asked me to see the patient for appropriate treatment. At that time, I was advised he had not been previously seen by orthopedics. Review of Systems General: Reports: 10 or more systems reviewed and unremarkable except in HPI and below Const: Denies: fever(s) Eyes: Denies: change in vision or photophobia ENMT: Denies: throat pain or enlarged tonsils Card: Denies: chest pain Resp: Reports: dyspnea GI: Denies: abdominal pain : Denies: flank pain Musc: Denies: joint warmth All/Imm: Denies: acute wheezing Medications/Allergies Home Medications Medication Instructions Recorded Confirmed Last Taken Type aspirin 81 mg tablet,delayed 162 mg PO QAM 10/18/20 02/22/23 02/22/23 History release (Adult Aspirin Regimen) nitroglycerin 0.4 mg sublingual 0.4 mg sublingual Q5M PRN Chest 10/18/20 02/22/23 Unknown History tablet (Nitrostat) Pain atorvastatin 20 mg tablet 20 mg PO QAM 09/14/22 02/22/23 02/22/23 History foot soak basin #1 ea 12/09/22 02/22/23 Unknown Rx hydrocodone 5 mg-acetaminophen 325 1 tab PO Q4H PRN Left Humerus 02/18/23 02/22/23 Unknown Rx mg tablet Fracture 5 days #30 tabs park brace. #1 ea 02/18/23 02/22/23 Unknown Rx multivitamin 1 tab PO QAM 02/22/23 02/22/23 02/22/23 History Allergies Allergy/AdvReac Type Severity Reaction Status Date / Time corn Allergy ADR-Nausea Verified 02/18/23 15:21 [email or web address] Allergy Uknown Verified 02/18/23 15:21 pear Allergy ALGY-Rash Verified 02/18/23 15:21 Penicillins Allergy ALGY-Difficulty Verified 02/18/23 15:21 Breathing Current Medications Generic Name Dose Route Start Last Admin Trade Name [place] PRN Reason Stop Dose Admin Enoxaparin Sodium 40 mg 02/23/23 09:00 02/23/23 08:34 Enoxaparin 40 Mg/0.4 Ml Syringe SUBCUT 40 mg DAILY AYE Administration Folic Acid 1 mg 02/23/23 09:00 02/23/23 08:35 Folic Acid 1 Mg Tablet PO 1 mg DAILY AYE Administration Sodium Chloride 1,000 mls @ 75 mls/hr 02/22/23 21:24 02/23/23 14:52 Sodium Chloride 0.9% IV 75 mls/hr .[id number] AYE Administration Ceftriaxone Sodium 1,000 mg/ 50 mls @ 100 mls/hr 02/22/23 22:00 02/23/23 00:10 Sodium Chloride IV Infused Q24H AYE Infusion Protocol Magnesium Lactate 84 mg 02/23/23 09:05 02/23/23 16:41 Magnesium Lactate 84 Mg Tablet PO 84 mg BID AYE Administration Phenobarbital 97.2 mg 02/23/23 18:00 02/23/23 16:42 Phenobarbital 32.4 Mg Tablet PO 97.2 mg Q12H AYE Administration Senna/Docusate Sodium 1 tab 02/23/23 09:00 02/23/23 08:49 Sennosides-Docusate Tablet PO Not Given DAILY AYE Thiamine Mononitrate 100 mg 02/23/23 09:00 02/23/23 08:35 Thiamine 100 Mg Tablet PO 100 mg DAILY AYE Administration PFSH Acute PFSH: Medical History Acute dehydration Alcohol abuse Alcohol withdrawal Alcoholic intoxication Alcoholic ketoacidosis Alcoholism Anal cancer Anxiety Cholelithiasis COPD (chronic obstructive pulmonary disease) CVA (cerebral vascular accident) Depression Dizziness DVT (deep venous thrombosis) Generalized weakness Hypertension Hypomagnesemia Myocardial infarction Pancreatitis Peripheral vascular disease Status post chemoradiation Vomiting Surgical History History of ankle surgery History of tonsillectomy Hx of cataract extraction Hx of non-cataract eye surgery Status post colonoscopy Status post laparoscopic cholecystectomy (11/13/20) Family History Other Family history non-contributory Social History Smoking and tobacco/nicotine status: current every day tobacco/nicotine user cigarettes Packs smoked per day: 0.5 Alcohol intake: current Alcohol intake frequency: 3 or more drinks per day Substance/Drug Use: never Household members: family Housing: House Dietary Habits: Current diet type/program: regular Caffeine: Yes High-fat food intake: 2 times daily Daily servings fruits/vegetables: 0-1 Daily servings of milk/calcium: 0-1 Eating out: rarely or never Reads food labels: usually or always During the past year weight has: remained stable Exercise: What type of physical activity do you participate in?: walking Physical activity functional status: independent ambulation How many days of moderate to strenuous exercise, like a brisk walk, did you do in the last 7 days: 2 Safety: Seatbelt use: always Helmet use: No Drive intoxicated or ride with intoxicated residential driver?: never Home Safety: Water heater temperature set < 120 degrees: No Working smoke detector in home: Yes Fire extinguisher in home: No Carbon monoxide detector in home: Yes Firearms in home: Yes Personal Safety: Do you feel safe at home: No Victim of physical abuse: No Victim of emotional abuse: No Victim of sexual abuse: No Would you like help information on resources?: No NHANES Social Connection/Isolation: Are you now , , , , never or living with a partner?: In a typical week, how many times do you talk on the telephone with family, friends, or neighbors?: Three or More Times per Week How often do you get together with friends or relatives?: Three or More Times per Week Do you belong to any clubs or organizations such as buddhist groups unions, fraternal or athletic groups, or school groups?: No Social isolation score (0-1 are the most socially isolated patients): 2 Social isolation score reviewed/action taken: No Vitals/I&O/Wt Last Vital Signs Temp 98.2 F 02/23/23 15:00 Pulse 72 02/23/23 15:00 Resp 17 02/23/23 15:00 BP 117/65 02/23/23 15:00 Pulse Ox 96 02/23/23 15:00 O2 Del Method Room Air 02/23/23 15:00 02/23/23 02/23/23 02/23/23 06:59 14:59 22:59 Intake Total 970 / 970 1728.75 / 1728.75 Output Total 100 / 100 200 / 200 Balance 870 / 870 1528.75 / 1528.75 Weight last 48 hrs Weight 149 lb 8 oz Weight 149 lb 12.8 oz Weight 143 lb 6.4 oz Physical Exam Const: COMMON NORMALS: no acute distress, average body habitus, patient oriented x3 and alert GENERAL APPEARANCE: cooperative and comfortable ORIENTATION/CONSCIOUSNESS: Yes awake HENMT: COMMON NORMALS: normocephalic and atraumatic HEAD & SCALP: normocephalic and atraumatic Eye: GENERAL EYE: appearance normal, both eyes and all related structures Chest: COMMONS NORMALS: normal inspection of the chest Resp: COMMON NORMALS: normal respiratory effort EFFORT & INSPECTION: Yes able to speak in complete sentences and Yes symmetric chest movement Extremity: LEFT UPPER EXTREMITY: Yes upper arm (Upon evaluation, the patient is in a humeral splint) Left upper arm: Yes inspection (There is bruising below the elbow) and Yes neurovascular exam (Patient will not flex and extend the elbow secondary to pain) and Yes elbow joint (Patient is reluctant to move the elbow) Neuro: COMMON NORMALS: patient oriented x3 SENSORIUM/ORIENTATION: Yes alert Psych: COMMON NORMALS: mental status grossly normal APPEARANCE: Yes grossly normal ATTITUDE: Yes calm and Yes engaged ATTENTION/CONCENTRATION: Yes attention grossly intact Skin: COMMON NORMALS: no rashes or lesions noted GENERAL SKIN EXAM: no rashes or lesions noted Data 02/23/23 05:15 02/23/23 05:15 Micro: Microbiology 02/23/23 14:05 Occult Blood (FIT) - Final Stool 02/22/23 18:57 Blood Culture - Preliminary Blood SPECIMEN COLLECTED 02/22/23 18:50 Blood Culture - Preliminary Blood SPECIMEN COLLECTED Xray Ortho: My impression: X-rays were evaluated both the elbow and humerus. There is a midshaft comminuted humerus fracture with a butterfly fragment. This remains unchanged from previous imaging from 18 February. A&P Assessment and plan (1) Fracture of shaft of left humerus: Patient presents with a humeral brace, and known history of a midshaft humerus fracture. The patient has been seen previously by Efrain Rabago from orthopedics, and is currently under his care. I was consulted for care over this weekend, and there has been no significant interval change in the fracture. Images are obtained today including images of the elbow to assure there is no further evidence of fracture. The patient is encouraged to move his elbow and his hand. He is quite swollen. He will continue follow-up with his previous provider, ZOE May. Qualifiers: Encounter type: initial encounter Fracture alignment: displaced Fracture morphology: oblique Fracture type: closed Qualified Code(s): S42.332A - Displaced oblique fracture of shaft of humerus, left arm, initial encounter for closed fracture Coding Level of Care Code Acute Code for Chg Fwd Diagnoses Fracture of shaft of left humerus S42.332A Encounter type: initial encounter Fracture alignment: displaced Fracture morphology: oblique Fracture type: closed
[2023-02-23 20:08] LABS: Troponin 5 6HR 13.95 ng/L (0-15)
[2023-02-23 20:09] LABS: Troponin 5 6HR Delta -1.05 ng/L (0-12)
[2023-02-23] MEDS: cefTRIAXone 1,000 MG in sodium chloride 0.9% (plus) 50 ML 100 MG IV (21:52)
[2023-02-23] MEDS: atorvastatin 40 mg Tablet PO (21:52)
[2023-02-23] MEDS: azithromycin 250 mg Tablet PO (21:52)
[2023-02-24] VITALS (7 sets, daily range): BP systolic 94–121; BP diastolic 61–71; PULSE 54–91; RESP 15–18; TEMP 36.4–37.1; O2SAT 94–98
[2023-02-24] MEDS: aspirin 81 mg EC Tablet 162 MG PO (05:15)
[2023-02-24] MEDS: PHENobarbital 32.4 mg Tablet 97.2 MG PO (05:15)
[2023-02-24] MEDS: magnesium lactate 84 mg Tablet PO ×2 (11:05→17:27)
[2023-02-24] MEDS: multivitamin therapeutic Tablet 1 TAB PO (11:05)
[2023-02-24] MEDS: thiamine 100 mg Tablet PO (11:05)
[2023-02-24] MEDS: enoxaparin 40 mg/0.4 mL Syringe SUBCUT (11:05)
[2023-02-24] MEDS: sennosides-docusate Tablet 1 TAB PO (11:05)
[2023-02-24] MEDS: folic acid 1 mg Tablet PO (11:06)
--- NOTE | 2023-02-24 13:45 | PC.SOCIAL ---
IMM Update Pg2 of IMM updated and reviewed w/ patient. Copy provided and copy dated, initialed and placed in chart.
[2023-02-24 13:48] LABS: Basophils # 0.1 10^3/uL (0.0-0.1); Basophils % 0.6 %; Eosinophils # 0.1 10^3/uL (0.0-0.8); Eosinophils % 1.5 %; Hematocrit 30.3 % (37-53); Lymphocytes # 0.7 10^3/uL (0.8-4.8); Lymphocytes % 8.2 %; Mean Corpuscular HGB Conc 32.7 g/dL (30-55); Mean Corpuscular Hemoglobin 34.1 pg (27-33); Mean Corpuscular Volume 104.5 fl (82-101); Mean Platelet Volume 9.9 fL (7.4-10.4); Neutrophils # 6.73 10^3/uL (1.8-7.7); Neutrophils % 77.9 %; Nucleated Red Blood Cells % 0.2 %; Platelet Count 156 10^3/cmm (157-399); Red Cell Distribution Width 16.6 % (12.1-15.1); White Blood Count 8.64 10^3/uL (3.29-11.43)
[2023-02-24 14:01] LABS: Alanine Aminotransferase 13 U/L (0-41); Albumin Level 3.1 g/dL (3.5-5.2); Alkaline Phosphatase 94 U/L (40-130); Anion Gap 13.4 (5-19); Aspartate Amino Transferase 32 U/L (0-40); Blood Urea Nitrogen 17 mg/dL (8-23); Calcium 8.5 mg/dL (8.5-10.5); Carbon Dioxide 26 mmol/L (22-29); Chloride 99 mmol/L (98-107); Globulin 2.5 g/dL (1.3-4.6); Glucose 117 mg/dL (65-115); Osmolality Calculated 283 mOsm/kg (285-295); Potassium 3.4 mmol/L (3.5-5.1); Sodium 135 mmol/L (136-145); Total Bilirubin 0.6 mg/dL (0.15-1.2); Total Protein 5.6 g/dL (6.6-8.7)
[2023-02-24 14:17] LABS: Magnesium 1.4 mg/dL (1.7-2.3)
--- NOTE | 2023-02-24 15:59 | P.PN_ITS ---
Subjective Subjective: Patient was seen this morning, he is alert to person, to place, not to time he does follow commands, does have minimal tremors, did have CIWA scores in the 7 or 8 yesterday evening, he is much more calm this morning, can follow commands, does report generalized weakness, Vitals/I&O/Wt Last Vital Signs Temp 97.8 F 02/24/23 11:38 Pulse 91 02/24/23 11:38 Resp 15 02/24/23 11:38 BP 94/64 02/24/23 11:38 Pulse Ox 95 02/24/23 11:38 O2 Del Method Room Air 02/24/23 11:38 02/24/23 02/24/23 02/24/23 06:59 14:59 22:59 Intake Total 500 / 2518.75 1480 / 1480 Output Total 1150 / 1750 Balance -650 / 768.75 1480 / 1480 Weight last 48 hrs Weight 71.724 kg Weight 67.812 kg Weight 67.948 kg Weight 65.045 kg Physical Exam Const: COMMON NORMALS: no acute distress Resp: COMMON NORMALS: normal respiratory effort, No retractions, No use of accessory muscles and clear to auscultation bilaterally AUSCULTATION: clear to auscultation bilaterally Cardio: COMMON NORMALS: regular rate, regular rhythm, S1 normal heart sound present and S2 normal heart sound present RATE: regular rate RHYTHM: regular rhythm HEART SOUNDS: S1 normal heart sound present and S2 normal heart sound present GI: COMMON NORMALS: Normal to inspection, nondistended, normoactive bowel sounds present and non-tender Extremity: COMMON NORMALS: no calf tenderness and no pedal edema Psych: COMMON NORMALS: mental status grossly normal Data 02/24/23 13:20 02/24/23 13:20 Micro: Microbiology 02/22/23 18:57 Blood Culture - Preliminary Blood NEGATIVE TO DATE 02/22/23 18:50 Blood Culture - Preliminary Blood NEGATIVE TO DATE 02/23/23 14:05 Occult Blood (FIT) - Final Stool A&P Assessment and plan (1) Closed fracture of upper extremity: (2) Pneumonia: (3) Frequent falls: (4) Alcohol intoxication: (5) Fracture of shaft of left humerus: Qualifiers: Encounter type: initial encounter Fracture alignment: displaced Fracture morphology: oblique Fracture type: closed Qualified Code(s): S42.332A - Displaced oblique fracture of shaft of humerus, left arm, initial encounter for closed fracture (6) Peripheral vascular disease: (7) Protein calorie malnutrition: (8) Physical deconditioning: (9) Muscle wasting: (10) Acute encephalopathy: Plan Alcohol intoxication Start tapering dose of phenobarbital 64.8 mg p.o. twice daily for 2 days then taper from there Start thiamine and folic acid ? CIWA protocol Recurrent falls Left humerus fracture Currently arm is in a splint No active vascular compromise Continue conservative management Aspiration pneumonia Continue ceftriaxone and p.o. antibiotics Currently on room air Patient is not doing well at all, failure to thrive ? Protein calorie malnutrition, physical deconditioning, muscle wasting, likely related to alcoholism ? PT OT, Dietary eval for ? Speech therapy eval Recurrent falls Lives with his half-brother He might need senior care placement Request PT evaluation History of CAD, continue aspirin, statin, nitro as needed for chest pain, Thrombocytopenia, anemia: Stable DVT prophylaxis added Full code Regular diet Attestations Medical Necessity Statement*: Patient requires hospitalization for alcohol withdrawal, requiring inpatient monitoring, on a phenobarbital taper, currently in withdrawal window, at about 4 8 hours, will have to watch for at least 72 to 96 hours, potentially up to 5 days based on clinical progress Diagnoses Closed fracture of upper extremity S42.309A Pneumonia J18.9 Frequent falls R29.6 Alcohol intoxication F10.929 Fracture of shaft of left humerus S42.332A Encounter type: initial encounter Fracture alignment: displaced Fracture morphology: oblique Fracture type: closed Peripheral vascular disease I73.9 Protein calorie malnutrition E46 Physical deconditioning R53.81 Muscle wasting M62.50 Acute encephalopathy G93.40
[2023-02-24] MEDS: PHENobarbital 32.4 mg Tablet 64.8 MG PO (17:31)
[2023-02-24] MEDS: cefTRIAXone 1,000 MG in sodium chloride 0.9% (plus) 50 ML 100 MG IV (21:24)
[2023-02-24] MEDS: atorvastatin 40 mg Tablet PO (21:25)
[2023-02-24] MEDS: azithromycin 250 mg Tablet PO (21:25)
[2023-02-24] MEDS: HYDROcodone-acetaminophen 5-325 mg Tablet 1 TAB PO (21:27)
[2023-02-25 00:28] VITALS: BP 114/67; PULSE 75; RESP 16; TEMP 37; O2SAT 96
[2023-02-25] MEDS: acetaminophen 500 mg Tablet PO (02:23)
[2023-02-25] MEDS: aspirin 81 mg EC Tablet PO (06:58)
[2023-02-25] MEDS: PHENobarbital 32.4 mg Tablet 64.8 MG PO ×2 (06:58→17:50)
[2023-02-25] MEDS: HYDROcodone-acetaminophen 5-325 mg Tablet 1 TAB PO ×2 (07:00→17:50)
[2023-02-25 08:27] LABS: Alanine Aminotransferase 14 U/L (0-41); Albumin Level 3.1 g/dL (3.5-5.2); Alkaline Phosphatase 113 U/L (40-130); Anion Gap 14.5 (5-19); Aspartate Amino Transferase 34 U/L (0-40); Blood Urea Nitrogen 16 mg/dL (8-23); Calcium 8.6 mg/dL (8.5-10.5); Carbon Dioxide 25 mmol/L (22-29); Chloride 98 mmol/L (98-107); Globulin 2.7 g/dL (1.3-4.6); Glucose 119 mg/dL (65-115); Magnesium 1.4 mg/dL (1.7-2.3); Osmolality Calculated 280 mOsm/kg (285-295); Phosphorus 2.3 mg/dL (2.5-4.5); Potassium 3.5 mmol/L (3.5-5.1); Sodium 134 mmol/L (136-145); Total Bilirubin 0.6 mg/dL (0.15-1.2); Total Protein 5.8 g/dL (6.6-8.7)
[2023-02-25] MEDS: folic acid 1 mg Tablet PO (08:52)
[2023-02-25] MEDS: multivitamin therapeutic Tablet 1 TAB PO (08:52)
[2023-02-25] MEDS: sennosides-docusate Tablet 1 TAB PO (08:52)
[2023-02-25] MEDS: thiamine 100 mg Tablet PO (08:52)
[2023-02-25] MEDS: magnesium lactate 84 mg Tablet PO ×2 (08:52→17:50)
[2023-02-25] MEDS: enoxaparin 40 mg/0.4 mL Syringe SUBCUT (08:52)
[2023-02-25 09:19] LABS: Basophils % 0.5 %; Eosinophils # 0.3 10^3/uL (0.0-0.8); Eosinophils % 3.6 %; Hematocrit 31.3 % (37-53); Lymphocytes # 1.1 10^3/uL (0.8-4.8); Mean Corpuscular HGB Conc 31.9 g/dL (30-55); Mean Corpuscular Hemoglobin 34.4 pg (27-33); Mean Corpuscular Volume 107.6 fl (82-101); Mean Platelet Volume 9.8 fL (7.4-10.4); Monocytes # 1.1 10^3/uL (0.2-0.9); Monocytes % 14.4 %; Neutrophils # 5.17 10^3/uL (1.8-7.7); Neutrophils % 66.6 %; Nucleated Red Blood Cells % 0 %; Platelet Count 212 10^3/cmm (157-399); Red Blood Count 2.91 10^6/uL (3.85-5.65); Red Cell Distribution Width 16.5 % (12.1-15.1); White Blood Count 7.77 10^3/uL (3.29-11.43)
[2023-02-25 09:50] VITALS: PULSE 78; RESP 20; O2SAT 97
--- NOTE | 2023-02-25 09:53 | PC.CHAP ---
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 [] Patient/Family/Request visit [] Outpatient visit [] Follow-up visit [] Physician referral [] Code/Alert [x] Routine visit [] Staff referral [] Actively dying [] Patient sleeping [] Family support [] [] Out of room [] Palliative care [] [] Receiving care in room [] Pre-surgical visit [] Trauma [] Long length of stay [] ICU visit [] Other: Relational/Emotional Strength [x] Patient feels connected with others/family/visitors/staff [] Distress [] Loneliness/isolation [] Abandonment Spirituality of Patient [x] Person of Christelle [] Attends Hindu of their Christelle [x] Believes in Prayer [] Reads Bible or Samaritan materials [] There are Spiritual issues to be addressed Global Sales Director Interventions [x] Prayer [] Active listening [] Non-anxious presence [x] Spiritual/emotional support [] Crisis/trauma care [] Spiritual counseling [] Bereavement support [] Provided bereavement packet [] Provided Bible/devotional materials [] Provided toy/stuffed animal, coloring book to patient or family member [] Provided Communion [] Anointing/[place] [] Salvation [x] Completed spiritual assessment [] Other: Impact on Illness or Injury [] Angry [] Fearful [] Anxious [] Often cries [] Exhaustion [] Unable to work [] Unable to attend mu-ism [] Unable to walk/stand [] Unable to read [] Unable to drive [] Unable to eat/drink [] Unable to sleep [] Unable to be with family [] Patient intubated [] Other: Summary Time spent with patient 5 min
--- NOTE | 2023-02-25 10:01 | XRR_ITS ---
PROCEDURE INFORMATION: Exam: XR Left Elbow Exam date and time: 02/25/2023 11:25 AM Age: 72 years old Clinical indication: Pain; Elbow; Left TECHNIQUE: Imaging protocol: Radiologic exam of the left elbow. Views: 1 or 2 views. COMPARISON: CR (UP EXM, ) 02/23/2023 12:44 PM FINDINGS: Bones/joints: Alignment is normal. Joint spaces are preserved. Limited assessment for joint effusion due to obliquity on the lateral view. Distal humeral diaphyseal fracture is partially imaged. Visible portions of the radius and ulna are intact. Soft tissues: There is diffuse soft tissue edema in the visible portion of the arm. XR/XR elbow LT 2V [id number] IMPRESSION: 1. Unremarkable elbow. 2. Partially imaged distal humeral diaphyseal fracture.
--- NOTE | 2023-02-25 10:01 | XRR_ITS ---
PROCEDURE INFORMATION: Exam: XR Left Humerus Exam date and time: 02/25/2023 11:23 AM Age: 72 years old Clinical indication: Pain; Upper arm; Left TECHNIQUE: Imaging protocol: Radiologic exam of the left humerus. Views: 2 or more views. COMPARISON: CR (UP EXM, ) 02/23/2023 12:44 PM FINDINGS: Bones/joints: Comminuted displaced and angulated distal humeral diaphyseal fracture. The shoulder and elbow are grossly unremarkable. Soft tissues: There is soft tissue swelling adjacent to the humeral fracture site. XR/[place] [id number] IMPRESSION: Displaced angulated comminuted distal humeral diaphyseal fracture. The degree of angulation is mildly increased since 02/23/2023. Soft tissue swelling is increased.
--- NOTE | 2023-02-25 10:01 | XRR_ITS ---
PROCEDURE INFORMATION: Exam: XR Left Shoulder Exam date and time: 02/25/2023 11:18 AM Age: 72 years old Clinical indication: Pain; Shoulder; Left TECHNIQUE: Imaging protocol: Radiologic exam of the left shoulder. Views: 2 or more views. COMPARISON: CR (UP EXM, ) 02/23/2023 12:44 PM FINDINGS: Bones/joints: Limited evaluation of the glenohumeral joint due to positioning. Alignment is grossly normal. Joint space is poorly evaluated. Visible portions of the clavicle and scapula are intact. There are healed fractures of left upper ribs. There is a partially imaged acute comminuted displaced humeral diaphyseal fracture. Soft tissues: Visible soft tissues are unremarkable. XR/XR shoulder LT min 2V* [id number] IMPRESSION: 1. No visible abnormality of the shoulder. Assessment of the shoulder is limited due to position. 2. Partially imaged comminuted displaced humeral diaphyseal fracture.
--- NOTE | 2023-02-25 12:35 | PM.PN ---
Subjective Subjective: Patient was seen this morning, he is complaining of more pain in the shaft of his left humerus, he tells me that its more swollen, he is currently out of the immobilizer, due to pain, he is alert to person, to place, not to time he can follow commands, denies any visual auditory or tactile hallucinations Vitals/I&O/Wt Last Vital Signs Temp 98.6 F 02/25/23 00:28 Pulse 78 02/25/23 09:50 Resp 20 H 02/25/23 09:50 BP 114/67 02/25/23 00:28 Pulse Ox 97 02/25/23 09:50 O2 Del Method Room Air 02/25/23 09:50 02/24/23 02/25/23 02/25/23 22:59 06:59 14:59 Intake Total 240 / 1720 50 / 1770 240 / 240 Output Total 200 / 200 Balance 40 / 1520 50 / 1570 240 / 240 Weight last 48 hrs Weight 71.724 kg Physical Exam Const: COMMON NORMALS: no acute distress and patient oriented x3 Resp: COMMON NORMALS: normal respiratory effort, No retractions, No use of accessory muscles and clear to auscultation bilaterally AUSCULTATION: clear to auscultation bilaterally Cardio: COMMON NORMALS: regular rate, regular rhythm, S1 normal heart sound present, S2 normal heart sound present, No gallops present (Cardio), No clicks present (Cardio) and No murmurs present (Cardio) RATE: regular rate RHYTHM: regular rhythm HEART SOUNDS: S1 normal heart sound present and S2 normal heart sound present GI: COMMON NORMALS: Normal to inspection, nondistended, normoactive bowel sounds present and non-tender Extremity: COMMON NORMALS: no pedal edema Neuro: COMMON NORMALS: patient oriented x3, CN's II-XII intact bilaterally and moves all extremities Data 02/25/23 04:20 02/25/23 04:20 A&P Assessment and plan (1) Closed fracture of upper extremity: (2) Pneumonia: (3) Frequent falls: (4) Alcohol intoxication: (5) Fracture of shaft of left humerus: Qualifiers: Encounter type: initial encounter Fracture alignment: displaced Fracture morphology: oblique Fracture type: closed Qualified Code(s): S42.332A - Displaced oblique fracture of shaft of humerus, left arm, initial encounter for closed fracture (6) Peripheral vascular disease: (7) Protein calorie malnutrition: (8) Physical deconditioning: (9) Muscle wasting: (10) Acute encephalopathy: Plan Alcohol intoxication Start tapering dose of phenobarbital 64.8 mg p.o. twice daily for 2 days then taper from there Start thiamine and folic acid ? [facility] protocol Recurrent falls Left humerus fracture Currently arm is in a splint No active vascular compromise, radial pulse palpated, does have diffuse swelling, left upper left lower extremity ? Today fracture looks a little bit more prominent, more angulated we will repeat x-rays, spoke to Dr. Garcia, plans on possible surgical intervention tomorrow Continue conservative management Aspiration pneumonia Continue ceftriaxone and azithromycin Currently on room air Patient is not doing well at all, failure to thrive ? Protein calorie malnutrition, physical deconditioning, muscle wasting, likely related to alcoholism ? PT OT, Dietary eval for ? Speech therapy eval Recurrent falls Lives with his half-brother Will need [place] [facility] [place] placement Request PT evaluation History of CAD, continue aspirin, statin, nitro as needed for chest pain, Thrombocytopenia, anemia: Stable DVT prophylaxis added Full code Regular diet Attestations Medical Necessity Statement*: Patient requires hospitalization for alcohol withdrawal, recurrent falls, left humeral fracture Diagnoses Closed fracture of upper extremity S42.309A Pneumonia J18.9 Frequent falls R29.6 Alcohol intoxication F10.929 Closed displaced oblique fracture of shaft of left humerus, initial encounter S42.332A Encounter type: initial encounter Fracture alignment: displaced Fracture morphology: oblique Fracture type: closed Peripheral vascular disease I73.9 Protein calorie malnutrition E46 Physical deconditioning R53.81 Muscle wasting M62.50 Acute encephalopathy G93.40
[2023-02-25 13:00] VITALS: BP 109/69; PULSE 80; RESP 16; TEMP 36.7; O2SAT 96
--- NOTE | 2023-02-25 13:03 | P.PN_ITS ---
Subjective 2 Subjective: Patient resting comfortably. Reports left arm pain. He has been wearing the Webster brace but he states that causes him a lot of pain. Discussed the swelling in the left arm. Vitals/I&O/Wt Last Vital Signs Temp 98.6 F 02/25/23 00:28 Pulse 78 02/25/23 09:50 Resp 20 H 02/25/23 09:50 BP 114/67 02/25/23 00:28 Pulse Ox 97 02/25/23 09:50 O2 Del Method Room Air 02/25/23 09:50 02/24/23 02/25/23 02/25/23 22:59 06:59 14:59 Intake Total 240 / 1720 50 / 1770 240 / 240 Output Total 200 / 200 Balance 40 / 1520 50 / 1570 240 / 240 Weight last 48 hrs Weight 158 lb 2 oz Physical Exam 2 Narrative: He is alert orient x3 has good general appearance normal mood and affect. Swelling diffusely down the left upper extremity palpable pain over the humerus. Has good sensation light touch she is neurovascular intact he is able to flex and extend his wrist. Wiggles all digits hands warm good cap refill. 1+ edema in the forearm 2+ in the humeral region. No palpable pain in the cervical spine full range of motion of the cervical spine. HENMT: COMMON NORMALS: normocephalic HEAD & SCALP: normocephalic OTHER: Blind in left eye Resp: COMMON NORMALS: normal respiratory effort Cardio: COMMON NORMALS: regular rate and regular rhythm RATE: regular rate RHYTHM: regular rhythm GI: COMMON NORMALS: Soft to palpation PALPATION: Yes Soft to palpation : COMMON NORMALS: Yes no CVA tenderness BLADDER/KIDNEY EXAM: Yes no CVA tenderness Back/Pelvis: COMMON NORMALS: no CVA tenderness Psych: COMMON NORMALS: mental status grossly normal and cooperative Data 02/25/23 04:20 02/25/23 04:20 A&P Assessment and plan (1) Fracture of humeral shaft, left, closed: Discussed treatment options with the patient that involve continuing the Webster brace versus open reduction internal fixation with intramedullary nail to the left humerus. He would like to proceed with operative treatment. Discussed with him at length wound incisional infection based on the amount of swelling and certainly his alcohol and tobacco use. Discussed risks of and benefits of the procedure which include but not limited to bleeding infection nerve damage continued arm pain reaction to anesthesia. More than 50% of the time spent with the patient today involved coordination of care, counseling and discussion of conservative versus surgical treatment options. Total amount of time spent with the patient was 31minutes. Qualifiers: Encounter type: subsequent encounter Fracture morphology: oblique F racture alignment: displaced Fracture healing: with delayed healing Qualified Code(s): S42.332G - Displaced oblique fracture of shaft of humerus, left arm, subsequent encounter for fracture with delayed healing Attestations 2 Medical Necessity Statement*: Defer to medical team Coding Level of Care Code Acute Code for [facility] Fwd Diagnoses Closed displaced oblique fracture of shaft of left humerus with delayed healing, subsequent encounter S42.332G Encounter type: subsequent encounter Fracture morphology: oblique Fracture alignment: displaced Fracture healing: with delayed healing Time Spent (min) 31
[2023-02-25 17:00] VITALS: BP 100/63; PULSE 87; RESP 17; TEMP 36.8; O2SAT 95
[2023-02-25 20:00] VITALS: BP 97/65; PULSE 88; RESP 17; TEMP 36.8; O2SAT 96
[2023-02-25 20:10] VITALS: PULSE 72; RESP 18; O2SAT 98
[2023-02-25] MEDS: atorvastatin 40 mg Tablet PO (20:51)
[2023-02-25] MEDS: azithromycin 250 mg Tablet PO (20:51)
[2023-02-25] MEDS: cefTRIAXone 1,000 MG in sodium chloride 0.9% (plus) 50 ML 100 MG IV (22:53)
[2023-02-26] VITALS (14 sets, daily range): BP systolic 103–132; BP diastolic 59–80; PULSE 61–79; RESP 16–18; TEMP 35.7–37.2; O2SAT 91–100; BMI 21.2
[2023-02-26] MEDS: PHENobarbital 32.4 mg Tablet 64.8 MG PO (06:14)
[2023-02-26 06:41] LABS: Basophils # 0.1 10^3/uL (0.0-0.1); Basophils % 0.8 %; Eosinophils # 0.3 10^3/uL (0.0-0.8); Eosinophils % 4.6 %; Hematocrit 33.7 % (37-53); Lymphocytes # 1.1 10^3/uL (0.8-4.8); Lymphocytes % 17.3 %; Mean Corpuscular HGB Conc 32.3 g/dL (30-55); Mean Corpuscular Hemoglobin 33.9 pg (27-33); Mean Corpuscular Volume 104.7 fl (82-101); Mean Platelet Volume 10.1 fL (7.4-10.4); Monocytes # 1.1 10^3/uL (0.2-0.9); Monocytes % 17.4 %; Neutrophils # 3.61 10^3/uL (1.8-7.7); Neutrophils % 57.8 %; Nucleated Red Blood Cells % 0 %; Platelet Count 210 10^3/cmm (157-399); Red Blood Count 3.22 10^6/uL (3.85-5.65); Red Cell Distribution Width 16.7 % (12.1-15.1); White Blood Count 6.25 10^3/uL (3.29-11.43)
[2023-02-26 07:00] LABS: Alanine Aminotransferase 14 U/L (0-41); Albumin Level 3.3 g/dL (3.5-5.2); Alkaline Phosphatase 107 U/L (40-130); Blood Urea Nitrogen 12 mg/dL (8-23); Calcium 8.8 mg/dL (8.5-10.5); Carbon Dioxide 27 mmol/L (22-29); Chloride 99 mmol/L (98-107); Globulin 2.8 g/dL (1.3-4.6); Glucose 98 mg/dL (65-115); Magnesium 1.6 mg/dL (1.7-2.3); Osmolality Calculated 284 mOsm/kg (285-295); Phosphorus 3.6 mg/dL (2.5-4.5); Sodium 137 mmol/L (136-145); Total Bilirubin 0.5 mg/dL (0.15-1.2); Total Protein 6.1 g/dL (6.6-8.7)
[2023-02-26 07:18] LABS: Anion Gap 15.1 (5-19); Aspartate Amino Transferase 28 U/L (0-40); Potassium 4.1 mmol/L (3.5-5.1)
--- NOTE | 2023-02-26 08:19 | PC.OT ---
HOLD OT TODAY DUE TO SCHEDULED SURGERY. WILL AWAIT NEW ORDERS AFTER SURGERY
--- NOTE | 2023-02-26 12:04 | USCV_ITS ---
Gerardo Millan Age: 72 Gender: M : 1950 Exam Date: 02/26/2023 13:37 Ordering Phys: King Rodriguez MD Technologist: Richie Ortiz Exam Location: [facility] – [place] Indication: lt arm swelling PROCEDURES: Venous duplex imaging was performed in only the left upper extremity. The following venous structures were evaluated: internal jugular vein, subclavian vein, axillary vein, and brachial veins. In addition, the basilic vein, cephalic vein, radial vein, and ulnar vein. FINDINGS: No evidence of deep vein thrombosis or superficial thrombophlebitis in the left upper extremity. CONCLUSIONS No evidence of thrombus of the left upper extremity veins. Anjum Bills MD (Electronically Signed) Final Date: 26 February 2023 16:22 S
[2023-02-26] MEDS: vancomycin 1,000 MG in sodium chloride 0.9% 250 ML 250 MG IV (12:37)
--- NOTE | 2023-02-26 13:26 | P.PN_ITS ---
Subjective 2 Subjective: Patient was seen this morning, he is alert oriented x3, follows all commands, does complain of left shoulder left arm pain, plans on surgery this afternoon, for his fracture, does have diffuse swelling throughout the left arm, plan on doing an ultrasound Vitals/I&O/Wt Last Vital Signs Temp 98.4 F 02/26/23 11:00 Pulse 61 02/26/23 11:00 Resp 18 02/26/23 11:00 BP 112/66 02/26/23 11:00 Pulse Ox 95 02/26/23 11:00 O2 Del Method Room Air 02/26/23 11:00 02/25/23 02/26/23 02/26/23 22:59 06:59 14:59 Intake Total 360 / 840 50 / 890 Output Total 225 / 625 Balance 360 / 440 -175 / 265 Weight last 48 hrs Weight 70.817 kg Physical Exam 2 Const: COMMON NORMALS: no acute distress and patient oriented x3 Resp: COMMON NORMALS: normal respiratory effort, No retractions, No use of accessory muscles and clear to auscultation bilaterally AUSCULTATION: clear to auscultation bilaterally Cardio: COMMON NORMALS: regular rate, regular rhythm, S1 normal heart sound present and S2 normal heart sound present RATE: regular rate RHYTHM: r egular rhythm HEART SOUNDS: S1 normal heart sound present and S2 normal heart sound present GI: COMMON NORMALS: Normal to inspection, nondistended, normoactive bowel sounds present and non-tender Extremity: COMMON NORMALS: no pedal edema Neuro: COMMON NORMALS: patient oriented x3 Psych: COMMON NORMALS: mental status grossly normal Data 02/26/23 06:20 02/26/23 06:20 A&P Assessment and plan (1) Closed fracture of upper extremity: (2) Pneumonia: (3) Frequent falls: (4) Alcohol intoxication: (5) Fracture of shaft of left humerus: Qualifiers: Encounter type: initial encounter Fracture alignment: displaced F racture morphology: oblique Fracture type: closed Qualified Code(s): S42.332A - Displaced oblique fracture of shaft of humerus, left arm, initial encounter for closed fracture (6) Peripheral vascular disease: (7) Protein calorie malnutrition: (8) Physical deconditioning: (9) Muscle wasting: (10) Acute encephalopathy: Plan Alcohol intoxication ? Out of withdrawal window, no significant evidence of withdrawal Start tapering dose of phenobarbital 32.4 mg p.o. twice daily for 2 days then taper from there thiamine and folic acid ? [facility] protocol Recurrent falls Left humerus fracture Currently arm is in a splint No active vascular compromise, radial pulse palpated, does have diffuse swelling, left upper left lower extremity, will do ultrasound surgical intervention today Continue conservative management Aspiration pneumonia Switch to cefdinir Currently on room air Patient is not doing well at all, failure to thrive ? Protein calorie malnutrition, physical deconditioning, muscle wasting, likely related to alcoholism ? PT OT, Dietary eval for ? Speech therapy eval Recurrent falls Lives with his half-brother Will need retirement placement Request PT evaluation History of CAD, continue aspirin, statin, nitro as needed for chest pain, Thrombocytopenia, anemia: Stable DVT prophylaxis added Full code Regular diet Attestations 2 Medical Necessity Statement*: Plan on today surgical invention for his fracture, wean phenobarbital, complete IV antibiotics switch to p.o. antibiotics Diagnoses Closed fracture of upper extremity S42.309A Pneumonia J18.9 Frequent falls R29.6 Alcohol intoxication F10.929 Closed displaced oblique fracture of shaft of left humerus, initial encounter S42.332A Encounter type: initial encounter Fracture alignment: displaced Fracture morphology: oblique Fracture type: closed Peripheral vascular disease I73.9 Protein calorie malnutrition E46 Physical deconditioning R53.81 Muscle wasting M62.50 Acute encephalopathy G93.40
--- NOTE | 2023-02-26 15:07 | P.ANESASSM_ITS ---
Pre-Anesthetic Assessment Height/Weight: Height 1.83 m Weight 70.817 kg Temp Pulse Resp BP Pulse Ox O2 Del Method 97.9 F 67 18 118/59 95 Room Air 02/26/23 14:34 02/26/23 14:34 02/26/23 14:34 02/26/23 14:34 02/26/23 14:34 02/26/23 14:43 Operation Date: 02/26/23 14:50 Proposed Procedures p Retrograde IM Nail Left humerus(Left) - Polo H Radha, DO Familial anesthetic complications: None Was Beta Michaela taken within 24 hours: N/A Was Clonidine taken within 24 hours: N/A Last intake: Intake Last Liquid Date 02/25/23 Last Liquid Time 19:00 Last Solid Date 02/25/23 Last Solid Time 18:00 Social Alcohol and Tobacco Exam alert, oriented x 3, clear to auscultation bilaterally and regular rate & rhythm Airway Mallampati: Class II Dentition: other (poor dentition) Pulmonary Chronic Obstructive Pulmonary Disease Pneumonia 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 CV/HEM Coronary Artery Disease, Hypertension, Myocardial Infarction and Peripheral Vascular Disease Previous code associated w/ [place] [facility] Cerebrovascular Accident Anesthetic Plan ASA status: 4 Anesthesia: General Risk of > 500 ml blood loss (7ml/kg in children): No Medications/Allergies Home Medications Medication Instructions Recorded Confirmed Last Taken Type aspirin 81 mg tablet,delayed 162 mg PO QAM 10/18/20 02/22/23 02/22/23 History release (Adult Aspirin Regimen) nitroglycerin 0.4 mg sublingual 0.4 mg sublingual Q5M PRN Chest 10/18/20 02/22/23 Unknown History tablet (Nitrostat) Pain atorvastatin 20 mg tablet 20 mg PO QAM 09/14/22 02/22/23 02/22/23 History foot soak basin #1 ea 12/09/22 02/22/23 Unknown Rx hydrocodone 5 mg-acetaminophen 325 1 tab PO Q4H PRN Left Humerus 02/18/23 02/22/23 Unknown Rx mg tablet Fracture 5 days #30 tabs park brace. #1 ea 02/18/23 02/22/23 Unknown Rx multivitamin 1 tab PO QAM 02/22/23 02/22/23 02/22/23 History phenobarbital 64.8 mg PO Q12H 02/24/23 02/25/23 Unknown History Allergies Allergy/AdvReac Type Severity Reaction Status Date / Time corn Allergy ADR-Nausea Verified 02/18/23 15:21 [place] Allergy Uknown Verified 02/18/23 15:21 pear Allergy ALGY-Rash Verified 02/18/23 15:21 Penicillins Allergy ALGY-Difficulty Verified 02/18/23 15:21 Breathing Current Medications Generic Name Dose Route Start Last Admin Trade Name Freq PRN Reason Stop Dose Admin Acetaminophen 500 mg 02/22/23 21:24 02/25/23 02:23 Acetaminophen 500 Mg Tablet PO 500 mg Q4H PRN Administration fever Hydrocodone Bitart/Acetaminophen 1 tab 02/24/23 08:39 02/25/23 17:50 Hydrocodone-Acetaminophen 5-325 Mg Tablet PO 1 tab Q8H PRN Administration MODERATE PAIN Aspirin 81 mg 02/25/23 06:00 02/26/23 08:15 Aspirin 81 Mg Ec Tablet PO Not Given QAM [facility] Atorvastatin Calcium 40 mg 02/23/23 21:00 02/25/23 20:51 Atorvastatin 40 Mg Tablet PO 40 mg BEDTIME [facility] Administration Enoxaparin Sodium 40 mg 02/23/23 09:00 02/26/23 08:16 Enoxaparin 40 Mg/0.4 Ml Syringe SUBCUT Not Given DAILY [facility]YE Folic Acid 1 mg 02/23/23 09:00 02/26/23 08:16 Folic Acid 1 Mg Tablet PO Not Given DAILY [facility] Magnesium Lactate 84 mg 02/23/23 09:05 02/26/23 08:16 Magnesium Lactate 84 Mg Tablet PO Not Given BID [facility] Multivitamins Therapeutic 1 tab 02/24/23 09:00 02/26/23 08:16 Multivitamin Therapeutic Tablet PO Not Given DAILY [facility] Senna/Docusate Sodium 1 tab 02/23/23 09:00 02/26/23 08:16 Sennosides-Docusate Tablet PO Not Given DAILY [facility] Thiamine Mononitrate 100 mg 02/23/23 09:00 02/26/23 08:17 Thiamine 100 Mg Tablet PO Not Given DAILY [facility] PFSH Anesthesia Medical History Acute dehydration Alcohol abuse Alcohol withdrawal Alcoholic intoxication Alcoholic ketoacidosis Alcoholism Anal cancer Anxiety Cholelithiasis COPD (chronic obstructive pulmonary disease) CVA (cerebral vascular accident) Depression Dizziness DVT (deep venous thrombosis) Generalized weakness Hypertension Hypomagnesemia Myocardial infarction Pancreatitis Peripheral vascular disease Status post chemoradiation Vomiting Surgical History History of ankle surgery History of tonsillectomy Hx of cataract extraction Hx of non-cataract eye surgery Status post colonoscopy Status post laparoscopic cholecystectomy (11/13/20) Family History Other Family history non-contributory Social History Smoking and tobacco/nicotine status: current every day tobacco/nicotine user cigarettes Packs smoked per day: 0.5 Alcohol intake: current Alcohol intake frequency: 3 or more drinks per day Substance/Drug Use: never Household members: family Housing: House Data Anesthesia 02/26/23 06:20 02/26/23 06:20 Short CBC 02/25/23 02/26/23 Range/Units 04:20 06:20 WBC 7.77 6.25 (3.29-11.43) 10^3/uL Hgb 10.00 L 10.90 L (11.27-16.99) g/dL Hct 31.3 L 33.7 L (37-53) % MCV 107.6 H 104.7 H (82-101) fl Plt Count 212 D 210 (157-399) 10^3/cmm Neut % (Auto) 66.6 57.8 % Neut # (Auto) 5.17 3.61 (1.8-7.7) 10^3/uL BMP 02/25/23 02/26/23 04:20 06:20 Sodium 134 L 137 Potassium 3.5 4.1 Chloride 98 99 Carbon Dioxide 25 27 BUN 16 12 Creatinine 0.5 L 0.5 L Glucose 119 H 98 Calcium 8.6 8.8 Liver Function 02/25/23 02/26/23 Range/Units 04:20 06:20 Total Bilirubin 0.6 0.5 (0.15-1.2) mg/dL AST 34 28 (0-40) U/L ALT 14 14 (0-41) U/L Alkaline Phosphatase 113 107 (40-130) U/L Albumin 3.1 L 3.3 L (3.5-5.2) g/dL Cardiac Studies: 2 Cardiac Event Monitor 10/15/22
[2023-02-26] MEDS: sodium chloride 0.9% 1,000 ML 30 ML IV (15:08)
--- NOTE | 2023-02-26 15:20 | W.PM.OPSUD ---
Surgery/Procedure H&P Update DATE OF PROCEDURE: February 26, 2023 DATE H&P PERFORMED: 02/22/23 H&P UPDATE INFORMATION: I have reviewed H&P completed within last 30 days, I have examined patient prior to procedure and No changes to prior documentation PLANNED PROCEDURE: Operation Date: 02/26/23 14:50 Proposed Procedures p Retrograde IM Nail Left humerus(Left) - Polo Garcia DO
--- NOTE | 2023-02-26 17:43 | XR_ITS ---
WS: [id number] Left arm and humerus, 2 views, C ARM fluoroscopy views, 02/26/2023 Clinical Data: OR PICS Comparison: Left arm and humerus, 02/25/2023 Findings: There is internal fixation of the comminuted fracture of the distal third of the left humerus. Impression: Internal fixation of comminuted fracture of the distal third of the left humerus.
--- NOTE | 2023-02-26 19:13 | P.OP_ITS ---
Operative Report Date of procedure: February 26, 2023 Pre-op diagnosis: Left humerus fracture Post-op diagnosis: same Procedure done: Intramedullary nail left humerus Surgeon: Polo Garcia DO [employer] Operator: Efrain Rabago [employer] Operator: The surgical lead, Efrain Rabago, GAGE was needed for his expertise with fractures. He was important and necessary throughout the procedure to complete in a safe and timely manner. He assisted with patient positioning prepping and draping tissue retraction suctioning of the operative field protection of the critical structures and tissue closure Estimated blood loss (mL): 50 Procedure: Intramedullary nail left humeral shaft. Patient brought the op suite after undergoing anesthesia placed in the lateral decubitus position. All areas impingement well-padded. Patient's prepped and draped normal sterile fashion. Skin incision was made over the left distal humerus. The triceps was split retractors placed. A guide from [employer] for the humeral nail insertion was placed above the olecranon fossa drill holes were made. Then an enlarging holes were made. And then the conical reamer was inserted. And then the opening reamer was inserted. Once this was completed the guidewire was passed. Guidewire bridged across the fracture. Then a size 7 220 mm humeral nail was placed retrograde. 2 screws were placed proximally and 2 screws were placed distally. The screws proximally were placed using the guide. The screws placed distally with use doing perfect [place] technique. Wound was then irrigated closed with Vicryl and kavon. Sterile dressings were applied patient was placed in a posterior splint and transferred to the PACU in stable condition.
[2023-02-26] MEDS: vancomycin 750 MG in sodium chloride 0.9% 250 ML 250 MG IV (20:04)
[2023-02-26] MEDS: atorvastatin 40 mg Tablet PO (20:41)
[2023-02-27] VITALS: BP 111/70; PULSE 62; RESP 17; TEMP 37; O2SAT 96
[2023-02-27 04:00] VITALS: BP 108/65; PULSE 78; RESP 17; TEMP 36.6; O2SAT 94
[2023-02-27 05:09] LABS: Basophils % 0.3 %; Lymphocytes # 0.9 10^3/uL (0.8-4.8); Mean Corpuscular HGB Conc 32.5 g/dL (30-55); Mean Corpuscular Hemoglobin 34.7 pg (27-33); Mean Corpuscular Volume 106.9 fl (82-101); Mean Platelet Volume 9.5 fL (7.4-10.4); Monocytes # 1.1 10^3/uL (0.2-0.9); Monocytes % 11.8 %; Neutrophils # 6.92 10^3/uL (1.8-7.7); Neutrophils % 76.8 %; Nucleated Red Blood Cells % 0 %; Platelet Count 231 10^3/cmm (157-399); Red Blood Count 2.62 10^6/uL (3.85-5.65); Red Cell Distribution Width 16.8 % (12.1-15.1); White Blood Count 9.01 10^3/uL (3.29-11.43)
[2023-02-27 05:31] LABS: Alanine Aminotransferase 7 U/L (0-41); Albumin Level 2.7 g/dL (3.5-5.2); Alkaline Phosphatase 79 U/L (40-130); Anion Gap 15.1 (5-19); Aspartate Amino Transferase 22 U/L (0-40); Blood Urea Nitrogen 14 mg/dL (8-23); Carbon Dioxide 23 mmol/L (22-29); Chloride 100 mmol/L (98-107); Globulin 2.6 g/dL (1.3-4.6); Glucose 149 mg/dL (65-115); Magnesium 1.5 mg/dL (1.7-2.3); Osmolality Calculated 281 mOsm/kg (285-295); Phosphorus 4.2 mg/dL (2.5-4.5); Potassium 4.1 mmol/L (3.5-5.1); Sodium 134 mmol/L (136-145); Total Bilirubin 0.4 mg/dL (0.15-1.2); Total Protein 5.3 g/dL (6.6-8.7)
[2023-02-27] MEDS: aspirin 81 mg EC Tablet PO (06:14)
[2023-02-27] MEDS: PHENobarbital 32.4 mg Tablet PO (06:15)
[2023-02-27 07:21] VITALS: BP 96/62; PULSE 66; RESP 14; TEMP 37; O2SAT 96
[2023-02-27] MEDS: magnesium sulfate premix 1 GM/100 ML PIGGYBACK IV (07:33)
--- NOTE | 2023-02-27 07:39 | PM.PN ---
Subjective Subjective: POD 1 Patient resting comfortably. Mild left arm pain Vitals/I&O/Wt Last Vital Signs Temp 98.6 F 02/27/23 07:21 Pulse 66 02/27/23 07:21 Resp 14 02/27/23 07:21 BP 96/62 02/27/23 07:21 Pulse Ox 96 02/27/23 07:21 O2 Del Method Room Air 02/27/23 07:21 02/26/23 02/27/23 02/27/23 22:59 06:59 14:59 Intake Total 250 / 500 Output Total 375 / 375 Balance -125 / 125 Weight last 48 hrs Weight 156 lb 2 oz Weight 156 lb 2 oz Physical Exam Narrative: Patient is alert orient x3 is good general appearance. A splint on his left upper extremity 1+ edema in his left hand. Wiggles all digits neurovascular intact with normal sensation light touch. Data 02/27/23 04:19 02/27/23 04:19 A&P Assessment and plan (1) Fracture of humeral shaft, left, closed: Encouraged to attempt to elevate as best he can with his hand pointing to the ceiling on pillows continue ice to the left humeral region. Continue sling when up mobilizing. Continue incentive spirometer for pulmonary toilet. We will see him back in the office in 1 week's time for a wound check. Keep the splint clean and dry Qualifiers: Encounter type: subsequent encounter Fracture morphology: oblique Fracture alignment: displaced Fracture healing: with routine healing Qualified Code(s): S42.332D - Displaced oblique fracture of shaft of humerus, left arm, subsequent encounter for fracture with routine healing Attestations Medical Necessity Statement*: Defer to medical team Coding Level of Care Code Acute Code for [facility] Fwd Diagnoses Closed displaced oblique fracture of shaft of left humerus with routine healing, subsequent encounter S42.332D Encounter type: subsequent encounter Fracture morphology: oblique Fracture alignment: displaced Fracture healing: with routine healing
[2023-02-27] MEDS: multivitamin therapeutic Tablet 1 TAB PO (08:27)
[2023-02-27] MEDS: cefdinir 300 MG CAPSULE PO (08:27)
[2023-02-27] MEDS: thiamine 100 mg Tablet PO (08:27)
[2023-02-27] MEDS: folic acid 1 mg Tablet PO (08:27)
[2023-02-27] MEDS: enoxaparin 40 mg/0.4 mL Syringe SUBCUT (08:27)
[2023-02-27] MEDS: sennosides-docusate Tablet 1 TAB PO (08:27)
[2023-02-27] MEDS: magnesium lactate 84 mg Tablet PO (08:27)
--- NOTE | 2023-02-27 08:48 | PM.DCS ---
Discharge Providers Date of Admission: 02/22/23 20:26 Date of Discharge: February 27, 2023 Attending Provider at Admission: Michael Osborn MD Attending Provider at Discharge: King Rodriguez MD Primary Care Provider: Medardo Bowers MD Diagnoses at Discharge Discharge Diagnosis (1) Fracture of humeral shaft, left, closed: Status: Acute Qualifiers: Encounter type: subsequent encounter Fracture alignment: displaced Fracture healing: with routine healing Fracture morphology: oblique Qualified Code(s): S42.332D - Displaced oblique fracture of shaft of humerus, left arm, subsequent encounter for fracture with routine healing Reason for Visit Reason for Visit: WEAKNESS Hospital Course Hospital Course Gerardo Millan is a 72 year old male with recurrent admissions related to recurrent falls, alcohol intoxication. Patient stating that he lives with his half-brother, drinks vodka on daily basis. He was seen in the ER multiple times, he was diagnosed with a left humerus fracture on 02/15, splint was applied, presented today for recurrent falls, elbow intoxication not doing well. In the ER he has been diagnosed with left lower lobe pneumonia concern for aspiration pneumonia he is afebrile requiring no oxygen. He is tachycardic frail and cachectic. Does have a splint on left arm with swelling of his left forearm he is able to move his fingers, I have requested Dr. Sterling to evaluate him in the morning to see if anything else is needed at this point patient was admitted for Alcohol intoxication, managed on phenobarbital ? on discharge Out of withdrawal window, no significant evidence of withdrawal -discharged Start tapering dose of phenobarbital 32.4 mg p.o. twice daily for 2 days then taper from there thiamine and folic acid ? [facility] protocol Recurrent falls Left humerus fracture Currently arm is in a splint No active vascular compromise, radial pulse palpated, does have diffuse swelling, left upper left lower extremity, will do ultrasound surgical intervention as inpatient discharged Continue conservative management Aspiration pneumonia, managed as inpatient Switch to cefdinir Currently on room air Patient is not doing well at all, failure to thrive ? Protein calorie malnutrition, physical deconditioning, muscle wasting, likely related to alcoholism ? PT OT, Dietary eval for ? Speech therapy eval Recurrent falls Lives with his half-brother discharged on long term placement History of CAD, continue aspirin, statin, nitro as needed for chest pain, Physical Exam Const: COMMON NORMALS: no acute distress and patient oriented x3 Resp: COMMON NORMALS: normal respiratory effort, No retractions, No use of accessory muscles and clear to auscultation bilaterally AUSCULTATION: clear to auscultation bilaterally Cardio: COMMON NORMALS: regular rate, regular rhythm, S1 normal heart sound present and S2 normal heart sound present RATE: regular rate RHYTHM: regular rhythm HEART SOUNDS: S1 normal heart sound present and S2 normal heart sound present GI: COMMON NORMALS: Normal to inspection, nondistended, normoactive bowel sounds present and non-tender Extremity: COMMON NORMALS: no pedal edema Neuro: COMMON NORMALS: patient oriented x3 Psych: COMMON NORMALS: mental status grossly normal Discharge Data Studies Completed and Pending Completed Studies During Hospitalization Category Date Time Status CT head wo con* [id number] Routine Cat Scan 02/23/23 12:48 Completed XR abdomen 1V* [id number] Stat Exams 02/22/23 15:54 Completed XR chest 1V portable [id number] Stat Exams 02/22/23 15:53 Completed XR elbow LT 2V [id number] Routine Exams 02/25/23 10:01 Completed XR elbow LT min 3V* [id number] Routine Exams 02/23/23 11:06 [place] [id number] Routine Exams 02/23/23 11:06 [place] [address] Routine Exams 02/25/23 10:01 Completed XR shoulder LT min 2V* [id number] Routine Exams 02/25/23 10:01 Completed US venous duplex upper extremity LT [CV venous duplex Ultrasound 02/26/23 12:04 [place] [address]] Routine Pending at discharge Category Date Time Status C-arm Fluoroscopy 75953 Routine Exams 02/26/23 13:09 [place] [id number] Routine Exams 02/26/23 17:43 Taken Blood Culture Stat Lab 02/22/23 18:57 Results Sputum Culture and Gram Stain Stat Lab 02/23/23 12:42 Uncollected Radiology Impressions Chest X-Ray 02/22/23 15:53 IMPRESSION: 1. Persistent patchy opacification in the left lower lobe suggesting atelectasis versus pneumonia. Recommend followup chest imaging to insure resolution of these findings. 2. Incidental/nonacute findings are listed in the report. Abdomen X-Ray 02/22/23 15:54 IMPRESSION: 1. No evidence for bowel obstruction or perforation. 2. Incidental/nonacute findings are listed in the report. Head CT 02/23/23 12:48 IMPRESSION: There are senescent changes of the brain as described above. No evidence for large acute ischemic infarction or acute intracranial injury. Elbow X-Ray 02/25/23 10:01 IMPRESSION: 1. Unremarkable elbow. 2. Partially imaged distal humeral diaphyseal fracture. Shoulder X-Ray 02/25/23 10:01 IMPRESSION: 1. No visible abnormality of the shoulder. Assessment of the shoulder is limited due to position. 2. Partially imaged comminuted displaced humeral diaphyseal fracture. Laboratory Results WBC 9.01 10^3/uL (3.29-11.43) 02/27/23 04:19 Corrected WBC Cancelled 02/22/23 16:46 RBC 2.62 10^6/uL (3.85-5.65) L 02/27/23 04:19 Hgb 9.10 g/dL (11.27-16.99) L 02/27/23 04:19 Hct 28.0 % (37-53) L 02/27/23 04:19 MCV 106.9 fl (82-101) H 02/27/23 04:19 MCH 34.7 pg (27-33) H 02/27/23 04:19 MCHC 32.5 g/dL (30-55) 02/27/23 04:19 RDW 16.8 % (12.1-15.1) H 02/27/23 04:19 Plt Count 231 10^3/cmm (157-399) 02/27/23 04:19 MPV 9.5 fL (7.4-10.4) 02/27/23 04:19 Gran % Cancelled 02/22/23 16:46 Neut % (Auto) 76.8 % 02/27/23 04:19 Lymph % (Auto) 10.0 % 02/27/23 04:19 [place] % (Auto) 11.8 % 02/27/23 04:19 Eos % (Auto) 0.0 % 02/27/23 04:19 Baso % (Auto) 0.3 % 02/27/23 04:19 Neut # (Auto) 6.92 10^3/uL (1.8-7.7) 02/27/23 04:19 Lymph # (Auto) 0.9 10^3/uL (0.8-4.8) 02/27/23 04:19 [place] # (Auto) 1.1 10^3/uL (0.2-0.9) H 02/27/23 04:19 Eos # (Auto) 0.0 10^3/uL (0.0-0.8) 02/27/23 04:19 Baso # (Auto) 0.0 10^3/uL (0.0-0.1) 02/27/23 04:19 Absolute Gran (auto) Cancelled 02/22/23 16:46 Nucleated RBC % (auto) 0 % 02/27/23 04:19 Nucleated RBCs # 0.0 /100WBC 02/27/23 04:19 Sodium 134 mmol/L (136-145) L 02/27/23 04:19 Potassium 4.1 mmol/L (3.5-5.1) 02/27/23 04:19 Chloride 100 mmol/L (98-107) 02/27/23 04:19 Carbon Dioxide 23 mmol/L (22-29) 02/27/23 04:19 Anion Gap 15.1 (5-19) 02/27/23 04:19 BUN 14 mg/dL (8-23) 02/27/23 04:19 Creatinine 0.5 mg/dL (0.7-1.2) L 02/27/23 04:19 GFR Calculation Not Reportable 02/27/23 04:19 Glucose 149 mg/dL (65-115) H 02/27/23 04:19 Calculated Osmolality 281 mOsm/kg (285-295) L 02/27/23 04:19 Calcium 8.0 mg/dL (8.5-10.5) L 02/27/23 04:19 Phosphorus 4.2 mg/dL (2.5-4.5) 02/27/23 04:19 Magnesium 1.5 mg/dL (1.7-2.3) L 02/27/23 04:19 Iron 83 ug/dL (59-158) 02/23/23 05:15 Ferritin 431 ng/mL (30-400) H 02/23/23 05:15 Total Bilirubin 0.4 mg/dL (0.15-1.2) 02/27/23 04:19 AST 22 U/L (0-40) 02/27/23 04:19 ALT 7 U/L (0-41) 02/27/23 04:19 Alkaline Phosphatase 79 U/L (40-130) 02/27/23 04:19 Troponin T Baseline 15 ng/L (0-15) 02/23/23 13:33 Troponin T 120 Minute 15.88 ng/L (0-15) H 02/23/23 15:33 Delta Troponin T 0.88 ABS# (0-10) 02/23/23 15:33 Troponin T Hi Sens 6Hr 13.95 ng/L (0-15) 02/23/23 19:36 Troponin T Hi Sens 6Hr Delta -1.05 ng/L (0-12) L 02/23/23 19:36 C-Reactive Protein 68.8 mg/L (0.0-4.9) H 02/23/23 05:15 Total Protein 5.3 g/dL (6.6-8.7) L 02/27/23 04:19 Albumin 2.7 g/dL (3.5-5.2) L 02/27/23 04:19 Globulin 2.6 g/dL (1.3-4.6) 02/27/23 04:19 Vitamin B12 392 pg/mL (232-1245) 02/23/23 05:15 Folate 8.0 ng/mL (4.5-32.2) 02/23/23 05:15 Procalcitonin 0.10 ng/mL (0-0.5) 02/23/23 05:15 TSH 0.57 uIU/mL (0.27-4.20) 02/23/23 05:15 Urine Color Yellow (Yellow) 02/23/23 08:25 Urine Appearance Clear (CLEAR) 02/23/23 08:25 Urine pH 5 (5-7) 02/23/23 08:25 Ur Specific [place] 1.020 (1.005-1.030) 02/23/23 08:25 Urine Protein Neg (Negative) 02/23/23 08:25 Urine Glucose (UA) Norm (Normal) 02/23/23 08:25 Urine Ketones 3+ (Negative) H 02/23/23 08:25 Urine Blood Neg (Negative) 02/23/23 08:25 Urine Nitrate Negative (Negative) 02/23/23 08:25 Urine Bilirubin Neg (Negative) 02/23/23 08:25 Urine Urobilinogen 1 mg/dL (Negative) H 02/23/23 08:25 Ur Leukocyte Esterase Negative (Negative) 02/23/23 08:25 Urine Opiates Screen Positive ng/mL (Negative) H 02/23/23 09:25 Ur Barbiturates Screen Positive ng/mL (Negative) H 02/23/23 09:25 Ur Phencyclidine Scrn Negative ng/mL (Negative) 02/23/23 09:25 Ur Amphetamines Screen Negative ng/mL (Negative) 02/23/23 09:25 U Benzodiazepines Scrn Negative ng/mL (Negative) 02/23/23 09:25 Urine Cocaine Screen Negative ng/mL (Negative) 02/23/23 09:25 U Marijuana (THC) Screen Negative ng/mL (Negative) 02/23/23 09:25 Ethyl Alcohol 257 mg/dL (0-10) H 02/22/23 17:46 Vitals Last Vital Signs Temp 98.6 F 02/27/23 07:21 Pulse 66 02/27/23 07:21 Resp 14 02/27/23 07:21 BP 96/62 02/27/23 07:21 Pulse Ox 96 02/27/23 07:21 O2 Del Method Room Air 02/27/23 07:21 Discharge Plan Discharge Patient Disposition: Xfer SNF Condition: Stable Prescriptions: New folic acid 1 mg Tablet 1 mg PO DAILY 30 Days Qty: 30 0RF phenobarbital 32.4 mg Tablet See Rx Instructions .ROUTE .COMPLEX Qty: 2 0RF Rx Instructions: 1 tab daily for 2 days, then stop Magtab 84 mg Tablet Extended Release 84 mg PO BID 30 Days Qty: 60 0RF Vitamin B-1 (mononitrate) 100 mg Tablet 100 mg PO DAILY 30 Days Qty: 30 0RF Thera 400 mcg Tablet 1 tab PO DAILY 30 Days Qty: 30 0RF Continued nitroglycerin [Nitrostat] 0.4 mg tablet, sublingual 0.4 mg sublingual Q5M PRN (Reason: Chest Pain) Rx Instructions: do not exceed 3 doses per episode (DME) foot soak basin See Rx Instructions .Route .MEDSUPPLY Qty: 1 0RF Rx Instructions: As directed to HOME (DME) xavier klein. See Rx Instructions .Route .MEDSUPPLY Qty: 1 0RF Rx Instructions: As directed multivitamin Tablet 1 tab PO QAM hydrocodone-acetaminophen 5-325 mg tablet 1 tab PO Q4H PRN (Reason: Left Humerus Fracture) 5 Days Qty: 30 0RF atorvastatin 20 mg tablet 20 mg PO QAM Changed Adult Aspirin Regimen 81 mg tablet,delayed release (DR/EC) 81 mg PO QAM 30 Days Qty: 30 0RF Discontinued phenobarbital 64.8 mg PO Q12H Discharge Orders: Discharge Order (Routine); Ordered 02/27/23 Ordered By: King Rodriguez Referrals: [facility] [Other] Medardo Bowers MD [Primary Care Provider] - Discharge Diet: Advance as tolerated Discharge Activity: Limit activity as instructed Patient Instructions: Opioid Safety, Pain Management Activity Restrictions/Additional Instructions: No use of the left upper extremity ice elevate with hand on pillows pointing to the ceiling across his chest. Continue sling. Continue incentive spirometer at home for pulmonary toilet. Follow-up in the office in 1 week's time for a wound check with Dr. Garcia. -please take phenobarbital as preecribed -please do pt/ot Discharge Attestations Time Spent in Discharge Care*: greater than 30 min Status at Discharge: Cognitive status at discharge: cognitively intact, Behavioral status at discharge: cooperative, Quality Metrics Clinical Quality Measures [ No reported AMI, CVA or VTE this stay] Coding Level of Care Code 65090 Total time (in minutes) for Discharge: 45 Diagnoses Closed displaced oblique fracture of shaft of left humerus with routine healing, subsequent encounter S42.332D Encounter type: subsequent encounter Fracture alignment: displaced Fracture healing: with routine healing Fracture morphology: oblique
[2023-02-27 09:25] VITALS: PULSE 68; RESP 16; O2SAT 96
[2023-02-27 10:06] LABS: SARS Covid-2 Antigen negative (Negative)
[2023-02-27 11:20] VITALS: BP 107/66; PULSE 69; RESP 15; TEMP 36.8; O2SAT 95
[2023-02-27] MEDS: HYDROcodone-acetaminophen 5-325 mg Tablet 1 TAB PO (11:21)
[2023-02-27 14:05] VITALS: BP 107/66; PULSE 69; RESP 15; TEMP 36.8; O2SAT 95
== END 2023-02-27 14:06 | disposition skilled nursing facility (03) | DRG 981 ==
LOC: ER 18:02 → MEDSURG 20:52
PROVIDERS: Emergency Medicine; Orthopaedic Surgery; Admitting Provider Internal Medicine; Emergency Provider Emergency Medicine; PCP Family Medicine; Visit Provider Family Medicine
PROC: 0PHG36Z Insertion of Intramedullary Internal Fixation Device into Left Humeral Shaft, Percutaneous Approach (ICD-10-PCS; CPT 24515; principal; 2023-02-26 14:20)
DX: F10.139 Alcohol abuse with withdrawal, unspecified (principal); J69.0 Pneumonitis due to inhalation of food and vomit; S42.332A Displaced oblique fracture of shaft of humerus, left arm, initial encounter for closed fracture; E46 Unspecified protein-calorie malnutrition; G93.40 Encephalopathy, unspecified; Y90.9 Presence of alcohol in blood, level not specified; Z11.52 Encounter for screening for COVID-19; Z91.81 History of falling; W19.XXXA Unspecified fall, initial encounter; Z85.048 Personal history of other malignant neoplasm of rectum, rectosigmoid junction, and anus; F41.9 Anxiety disorder, unspecified; J44.9 Chronic obstructive pulmonary disease, unspecified; Z86.718 Personal history of other venous thrombosis and embolism; F32.A Depression, unspecified; I10 Essential (primary) hypertension; I25.2 Old myocardial infarction; I73.9 Peripheral vascular disease, unspecified; Z92.21 Personal history of antineoplastic chemotherapy; Z92.3 Personal history of irradiation; Z68.21 Body mass index [BMI] 21.0-21.9, adult; D69.59 Other secondary thrombocytopenia; D64.9 Anemia, unspecified; F17.210 Nicotine dependence, cigarettes, uncomplicated; I25.10 Atherosclerotic heart disease of native coronary artery without angina pectoris; R62.7 Adult failure to thrive
CPT/HCPCS: 36415; 70450; 71045; 73030; 73060; 73070; 73080; 74018; 76000; 80048; 80053; 80306; 80307; 81003; 82274; 82607; 82728; 82746; 83540; 83735; 84100; 84145; 84443; 84484; 85025; 86140; 87040; 87426; 92610; 93005; 93010; 93971; 96365; 96367; 96372; 97110; 97161; 97165; 97530; 97535; 99281; 99285; J0456; J0696; J1100; J1170; J1650; J2405; J2704; J3010; J3370; J3475; J3490; J7030; J7050; Q0144

== ENCOUNTER → 2023-03-25 11:09 | Outpatient (BNVA) | payer MEDICARE, MEDICAID, SELFPAY | PROVIDERS: PCP Family Medicine; Visit Provider Orthopaedic Surgery | DX: S42.332D Displaced oblique fracture of shaft of humerus, left arm, subsequent encounter for fracture with routine healing (principal); X58.XXXD Exposure to other specified factors, subsequent encounter; Z96.7 Presence of other bone and tendon implants | CPT/HCPCS: 73060; 99024 ==

== ENCOUNTER 2023-05-15 14:16 | Emergency (ER) | payer MEDICARE, MEDICAID, SELFPAY ==
[2023-05-15] VITALS (30 sets, daily range): BP systolic 103–112; BP diastolic 61–68; PULSE 49–88; RESP 12–25; TEMP 35.8; O2SAT 78–99
--- NOTE | 2023-05-15 14:20 | ECG_ITS ---
[facility] Test Date: 2023-05-15 Pat Name: Gerardo Millan Department: Room: Gender: Male Child Care Associate Teacher: : 1950 Requested By: Loy Mcguire Order Number: [id number] Ray MD: Jhonathan Fernandez M.D. Measurements Intervals Adams Rate: 63 P: 66 UT: 156 QRS: -9 QRSD: 94 T: 39 QT: 428 QTc: 440 Interpretive Statements SINUS RHYTHM WITH OCCASIONAL SUPRAVENTRICULAR PREMATURE COMPLEXES NONSPECIFIC T-WAVE ABNORMALITY Compared to ECG 02/23/2023 16:20:32 T-wave abnormality now present Electronically Signed On 05-15-2023 17:50:18 ANTHROPOLOGY DEPARTMENT CHAIR by Jhonathan Fernandez M.D. [email or web address]
--- NOTE | 2023-05-15 14:20 | ED_ITS ---
HPI - Weakness 2 General: Chief complaint: Weakness Stated complaint: sick Time Seen by Provider: 05/15/23 14:20 History of Present Illness: 72-year-old male patient was seen by [facility] today and it was noted patient had not been out of bed for 2 days. Patient endorses some weakness. Patient endorses chronic alcohol use. Patient reports no pain or discomfort. Patient appears nontoxic. Patient has a history of a recent humeral fracture with normal healing. Patient has been in the emergency department several times before for EtOH intoxication and falls. Patient denies any recent falls. Review of Systems 2 General: Reports: 10 or more systems reviewed and unremarkable except in HPI and below Neuro: Reports: weakness in extremities PFSH ED 2 PFSH: Medical History Alcoholic intoxication Peripheral vascular disease Alcohol withdrawal Alcoholic ketoacidosis Hypomagnesemia Alcohol abuse Generalized weakness Depression Anxiety Myocardial infarction Alcoholism Pancreatitis Status post chemoradiation Cholelithiasis Dizziness Anal cancer COPD (chronic obstructive pulmonary disease) Hypertension CVA (cerebral vascular accident) DVT (deep venous thrombosis) Acute dehydration Vomiting Surgical History Status post laparoscopic cholecystectomy (11/13/20) Hx of non-cataract eye surgery Hx of cataract extraction History of ankle surgery History of tonsillectomy Status post colonoscopy Family History Other Family history non-contributory Social History Smoking and tobacco/nicotine status: current every day tobacco/nicotine user cigarettes Packs smoked per day: 0.5 Alcohol intake: current Alcohol intake frequency: 3 or more drinks per day Substance/Drug Use: never Household members: family Housing: House Physical Exam 2 Const: COMMON NORMALS: alert HENMT: COMMON NORMALS: normocephalic HEAD & SCALP: normocephalic Neck/C-Spine: COMMON NORMALS: full ROM Resp: COMMON NORMALS: normal respiratory effort AUSCULTATION: diminished lung sounds Cardio: COMMON NORMALS: regular rate and regular rhythm RATE: regular rate RHYTHM: regular rhythm GI: COMMON NORMALS: Soft to palpation and non-tender PALPATION: Yes Soft to palpation Back/Pelvis: COMMON NORMALS: thoracic and lumbar spine normal to inspection Extremity: COMMON NORMALS: normal to inspection Neuro: SENSORIUM/ORIENTATION: Yes alert Skin: COMMON NORMALS: turgor normal GENERAL SKIN EXAM: turgor normal Course 2 Vital Signs: Vital signs: Vital Signs Temperature 96.4 F L 05/15/23 14:19 Pulse Rate 64 05/15/23 16:20 Respiratory Rate 14 05/15/23 16:20 Blood Pressure 103/61 05/15/23 16:55 Pulse Oximetry 78 L 05/15/23 16:20 Oxygen Delivery Me thod Room Air 05/15/23 15:48 MDM - Weakness Medical Decision Making 72-year-old male patient presents today with weakness. Home health is seeing the patient was concerned due to him being ill yesterday with nausea and vomiting and him reporting that he had not got out of bed in 2 days. Patient was brought in by EMS for these concerns. Patient appears nontoxic. Patient appears chronically ill. Abdomen soft nontender. Skin is warm and dry. Color is pink. Patient has senile purpura to the forearms. Patient moves all extremities well. Patient sits up in bed on his own records. Vital signs are normal. Differential diagnosis includes pneumonia, electrolyte disturbance, dehydration, alcohol intoxication. Patient's chest x-ray was unremarkable. CBC showed a 5000 white count. CMP noted a potassium of 3.0, magnesium was 1.5, blood glucose was 83. Anion gap was 18. Patient was given 1 L of IV fluids, patient was given 40 mEq potassium p.o., and patient was given 2 g of mag sulfate. Patient was able to eat and drink and hold food and fluids down. Patient was able to ambulate with 1 assist. Patient was discharged to home in stable condition. Lab Data 05/15/23 13:49 05/15/23 13:49 Laboratory Results WBC 5.46 10^3/uL (3.29-11.43) 05/15/23 13:49 RBC 3.89 10^6/uL (3.85-5.65) 05/15/23 13:49 Hgb 12.10 g/dL (11.27-16.99) 05/15/23 13:49 Hct 36.6 % (37-53) L 05/15/23 13:49 MCV 94.1 fl (82-101) 05/15/23 13:49 MCH 31.1 pg (27-33) 05/15/23 13:49 MCHC 33.1 g/dL (30-55) 05/15/23 13:49 RDW 18.9 % (12.1-15.1) H 05/15/23 13:49 Plt Count 150 10^3/cmm (157-399) L 05/15/23 13:49 MPV 10.8 fL (7.4-10.4) H 05/15/23 13:49 Neut % (Auto) 46.3 % 05/15/23 13:49 Lymph % (Auto) 36.6 % 05/15/23 13:49 [place] % (Auto) 11.4 % 05/15/23 13:49 Eos % (Auto) 4.4 % 05/15/23 13:49 Baso % (Auto) 1.1 % 05/15/23 13:49 Neut # (Auto) 2.53 10^3/uL (1.8-7.7) 05/15/23 13:49 Lymph # (Auto) 2.0 10^3/uL (0.8-4.8) 05/15/23 13:49 [place] # (Auto) 0.6 10^3/uL (0.2-0.9) 05/15/23 13:49 Eos # (Auto) 0.2 10^3/uL (0.0-0.8) 05/15/23 13:49 Baso # (Auto) 0.1 10^3/uL (0.0-0.1) 05/15/23 13:49 Nucleated RBC % (auto) 0 % 05/15/23 13:49 Nucleated RBCs # 0.0 /100WBC 05/15/23 13:49 Sodium 138 mmol/L (136-145) 05/15/23 13:49 Potassium 3.0 mmol/L (3.5-5.1) L 05/15/23 13:49 Chloride 98 mmol/L (98-107) 05/15/23 13:49 Carbon Dioxide 25 mmol/L (22-29) 05/15/23 13:49 Anion Gap 18.0 (5-19) 05/15/23 13:49 BUN 11 mg/dL (8-23) 05/15/23 13:49 Creatinine 0.6 mg/dL (0.7-1.2) L 05/15/23 13:49 GFR Calculation Not Reportable 05/15/23 13:49 Glucose 83 mg/dL (65-115) 05/15/23 13:49 Calculated Osmolality 285 mOsm/kg (285-295) 05/15/23 13:49 Calcium 8.4 mg/dL (8.5-10.5) L 05/15/23 13:49 Magnesium 1.5 mg/dL (1.7-2.3) L 05/15/23 13:49 Total Bilirubin 0.9 mg/dL (0.15-1.2) 05/15/23 13:49 AST 44 U/L (0-40) H 05/15/23 13:49 ALT 19 U/L (0-41) 05/15/23 13:49 Alkaline Phosphatase 94 U/L (40-130) 05/15/23 13:49 Total Protein 6.9 g/dL (6.6-8.7) 05/15/23 13:49 Albumin 3.8 g/dL (3.5-5.2) 05/15/23 13:49 Globulin 3.1 g/dL (1.3-4.6) 05/15/23 13:49 Ethyl Alcohol 338 mg/dL (0-10) H* 05/15/23 13:49 All radiology interpretation(s) finalized by discharge EKG Data EKG 1: I personally reviewed and interpreted this EKG as follows: EKG interpretation date: 05/15/23 EKG interpretation time: 14:54 Prior EKG tracings: not available for review Interpretation: EKG shows a sinus rhythm with a regular rate at 63 bpm. Occasional PAC is noted. No ST elevation is noted. No prior exam was available for comparison. Artifact present. Computer generated interpretation: Sinus rhythm with occasional supraventricular premature complexes, nonspecific T wave abnormality, borderline EKG, unconfirmed report. Discharge Plan Discharge Patient Disposition: Home Clinical Impression: Hypokalemia, Chronic alcoholism Condition: Stable Prescriptions: No Action nitroglycerin [Nitrostat] 0.4 mg tablet, sublingual 0.4 mg sublingual Q5M PRN (Reason: Chest Pain) Rx Instructions: do not exceed 3 doses per episode (DME) foot soak basin See Rx Instructions .Route .MEDSUPPLY Qty: 1 0RF Rx Instructions: As directed to HOME (DME) [facility]. See Rx Instructions .Route .MEDSUPPLY Qty: 1 0RF Rx Instructions: As directed multivitamin Tablet 1 tab PO QAM aspirin [Adult Aspirin Regimen] 81 mg tablet,delayed release (DR/EC) 81 mg PO QAM 30 Days Qty: 30 0RF atorvastatin 20 mg tablet 20 mg PO QAM Discharge Orders: Discharge ED (Routine); Ordered 05/15/23 Ordered By: Loy Eden Referrals: Medardo Bowers MD [Primary Care Provider] - Discharge Diet: Usual diet Discharge Activity: Increase activity as tolerated Patient Instructions: Alcohol Dependence (ED) Activity Restrictions/Additional Instructions: Drink Ensure or calorie shakes in order to maintain nutrition. Try to limit alcohol consumption to no more than 2 drinks a day. Try to add back nutritious foods to your regimen and diet. Follow-up with primary care. Consider skilled nursing if you are not unable to care for yourself. Coding Level of Care Code ED Probation Officer for Katrin Mike
--- NOTE | 2023-05-15 14:20 | XR_ITS ---
WS: [id number] Portable AP upright chest, 05/15/2023 Clinical Data: weakness Comparison: Portable chest, 02/22/2023 Findings: No nodules, masses or effusions are seen. The heart is enlarged. The pulmonary vascularity is not increased. No pneumonia or pneumothorax is seen. There is a hiatal hernia behind the heart. Th e aortic arch and descending thoracic aorta show tortuosity. There are old bilateral rib fractures. T here is a old midshaft fracture of the right clavicle. There is an intramedullary noah in the left hum erus. There are right upper quadrant cholecystectomy clips. Impression: 1. Cardiomegaly and atherosclerosis. 2. Old bilateral rib fractures and old fracture of right mid clavicle.
[2023-05-15 14:35] LABS: Basophils # 0.1 10^3/uL (0.0-0.1); Basophils % 1.1 %; Eosinophils # 0.2 10^3/uL (0.0-0.8); Eosinophils % 4.4 %; Hematocrit 36.6 % (37-53); Lymphocytes % 36.6 %; Mean Corpuscular HGB Conc 33.1 g/dL (30-55); Mean Corpuscular Hemoglobin 31.1 pg (27-33); Mean Corpuscular Volume 94.1 fl (82-101); Mean Platelet Volume 10.8 fL (7.4-10.4); Monocytes # 0.6 10^3/uL (0.2-0.9); Monocytes % 11.4 %; Neutrophils # 2.53 10^3/uL (1.8-7.7); Neutrophils % 46.3 %; Nucleated Red Blood Cells % 0 %; Platelet Count 150 10^3/cmm (157-399); Red Blood Count 3.89 10^6/uL (3.85-5.65); Red Cell Distribution Width 18.9 % (12.1-15.1); White Blood Count 5.46 10^3/uL (3.29-11.43)
[2023-05-15 14:54] LABS: Alanine Aminotransferase 19 U/L (0-41); Albumin Level 3.8 g/dL (3.5-5.2); Alkaline Phosphatase 94 U/L (40-130); Aspartate Amino Transferase 44 U/L (0-40); Blood Urea Nitrogen 11 mg/dL (8-23); Calcium 8.4 mg/dL (8.5-10.5); Carbon Dioxide 25 mmol/L (22-29); Chloride 98 mmol/L (98-107); Creatinine Clr Calc Pharmacy 90.5505; Globulin 3.1 g/dL (1.3-4.6); Glucose 83 mg/dL (65-115); Magnesium 1.5 mg/dL (1.7-2.3); Osmolality Calculated 285 mOsm/kg (285-295); Sodium 138 mmol/L (136-145); Total Bilirubin 0.9 mg/dL (0.15-1.2); Total Protein 6.9 g/dL (6.6-8.7)
[2023-05-15 14:57] LABS: Alcohol Level 338 mg/dL (0-10)
[2023-05-15] MEDS: sodium chloride 0.9% 1,000 ML 999 ML IV (15:43)
[2023-05-15] MEDS: magnesium sulfate premix 2 GM/50 ML PIGGYBACK IV (15:44)
[2023-05-15] MEDS: potassium chloride oral liq 20 mEq/15 mL UDC 40 MEQ PO (15:45)
== END 2023-05-15 17:08 | disposition home or self-care (01) ==
PROVIDERS: Emergency Provider Nurse Practitioner Family; PCP Family Medicine
DX: E87.6 Hypokalemia (principal); F10.20 Alcohol dependence, uncomplicated; Y90.8 Blood alcohol level of 240 mg/100 ml or more; Z79.82 Long term (current) use of aspirin; F17.210 Nicotine dependence, cigarettes, uncomplicated; I25.2 Old myocardial infarction; Z92.21 Personal history of antineoplastic chemotherapy; Z85.048 Personal history of other malignant neoplasm of rectum, rectosigmoid junction, and anus; J44.9 Chronic obstructive pulmonary disease, unspecified
CPT/HCPCS: 71045; 80053; 80307; 83735; 85025; 93005; 96365; 99285; J3475; J7030

== ENCOUNTER → 2023-07-03 15:49 | Outpatient (BNVA) | payer MEDICARE, MEDICAID, SELFPAY | PROVIDERS: PCP Family Medicine; Visit Provider Orthopaedic Surgery | DX: S42.332D Displaced oblique fracture of shaft of humerus, left arm, subsequent encounter for fracture with routine healing (principal); X58.XXXD Exposure to other specified factors, subsequent encounter | CPT/HCPCS: 73060; 99213 ==

== ENCOUNTER 2023-08-11 22:11 | Emergency (ER) | payer MEDICARE, MEDICAID, SELFPAY ==
[2023-08-11 22:14] VITALS: BP 126/78; PULSE 80; RESP 16; TEMP 36.4; O2SAT 97; BMI 21.7
--- NOTE | 2023-08-11 23:12 | W.ED.WEAKNES ---
HPI - Weakness General: Chief complaint: Weakness Stated complaint: WEAKNESS Time Seen by Provider: 08/11/23 22:21 Source: patient and EMS Mode of arrival: ambulatory Limitations: no limitations History of Present Illness: Patient comes in for ethanol intoxication. His brother who per story is likely also drunk called EMS for possible stroke. Patient is having no stroke symptoms. NIH of 0 on arrival. Patient reports he was in a verbal altercation with his brother and had been drinking some vodka Review of Systems General: Reports: 10 or more systems reviewed and unremarkable except in HPI and below PFSH ED PFSH: Medical History Alcoholic intoxication Peripheral vascular disease Alcohol withdrawal Alcoholic ketoacidosis Hypomagnesemia Alcohol abuse Generalized weakness Depression Anxiety Myocardial infarction Alcoholism Pancreatitis Status post chemoradiation Cholelithiasis Dizziness Anal cancer COPD (chronic obstructive pulmonary disease) Hypertension CVA (cerebral vascular accident) DVT (deep venous thrombosis) Acute dehydration Vomiting Surgical History Status post laparoscopic cholecystectomy (11/13/20) Hx of non-cataract eye surgery Hx of cataract extraction History of ankle surgery History of tonsillectomy Status post colonoscopy Family History Other Family history non-contributory Social History Smoking and tobacco/nicotine status: current every day tobacco/nicotine user cigarettes Packs smoked per day: 0.5 Alcohol intake: current Alcohol intake frequency: 3 or more drinks per day Substance/Drug Use: never Household members: family Housing: House Physical Exam Const: COMMON NORMALS: no acute distress, average body habitus, patient oriented x3, healthy appearing, alert and well nourished GENERAL APPEARANCE: cooperative (somewhat), well kempt, well developed, appears older than stated age and odor of alcohol detected NUTRITIONAL APPEARANCE: thin HENMT: COMMON NORMALS: normocephalic, atraumatic, external ears normal and moist oral mucous membranes HEAD & SCALP: normocephalic and atraumatic EXTERNAL EAR: Yes external ears normal Eye: COMMON NORMALS: Equal, round and reactive pupils present, EOMs intact bilaterally and conjunctivae normal CONJUNCTIVA: Yes conjunctivae normal PUPIL: Yes Equal, round and reactive pupils present Neck/C-Spine: COMMON NORMALS: full ROM, no lymphadenopathy and supple Chest: CHEST: Yes Symmetrical chest wall rise and No Surgical scars present (Chest) Resp: COMMON NORMALS: normal respiratory effort, No retractions, No use of accessory muscles and clear to auscultation bilaterally AUSCULTATION: clear to auscultation bilaterally Cardio: COMMON NORMALS: regular rate, regular rhythm, S1 normal heart sound present, S2 normal heart sound present, No gallops present (Cardio), No clicks present (Cardio), No murmurs present (Cardio) and No rub (Cardio) RATE: regular rate RHYTHM: regular rhythm HEART SOUNDS: S1 normal heart sound present, S2 normal heart sound present and no murmurs PERIPHERAL PULSES: other (Radial pulses 2+ and symmetric) GI: COMMON NORMALS: Soft to palpation, non-tender and no masses INSPECTION: No abdominal distension PALPATION: Yes Soft to palpation, No Guarding due to palpation present (GI) and No Rebound tenderness present : COMMON NORMALS: Yes no CVA tenderness BLADDER/KIDNEY EXAM: Yes no CVA tenderness Back/Pelvis: COMMON NORMALS: no CVA tenderness Extremity: COMMON NORMALS: normal to inspection, full ROM, capillary refill normal and no clubbing, cyanosis or edema Neuro: COMMON NORMALS: patient oriented x3 SENSORIUM/ORIENTATION: Yes alert Psych: APPEARANCE: Yes well kempt Skin: COMMON NORMALS: no rashes or lesions noted, no wounds, turgor normal and no jaundice GENERAL SKIN EXAM: no rashes or lesions noted and turgor normal Course Vital Signs: Vital signs: Vital Signs Temperature 97.5 F L 08/11/23 22:14 Pulse Rate 80 08/11/23 22:14 Respiratory Rate 16 08/11/23 22:14 Blood Pressure 126/78 08/11/23 22:14 Pulse Oximetry 97 08/11/23 22:14 Oxygen Delivery Me thod Room Air 08/11/23 22:14 MDM - Weakness Medical Decision Making Patient has alcohol intoxication. Waiting for a ride to come pick patient up. Patient currently yelling at nursing staff and making crude and vulgar insults. Medical Records I reviewed the patient's medical records. No radiology studies performed this visit Discharge Plan Discharge Patient Disposition: Home Clinical Impression: Alcohol intoxication in active alcoholic, Hostile behavior Condition: Stable Prescriptions: No Action nitroglycerin [Nitrostat] 0.4 mg tablet, sublingual 0.4 mg sublingual Q5M PRN (Reason: Chest Pain) Rx Instructions: do not exceed 3 doses per episode (DME) foot soak basin See Rx Instructions .Route .MEDSUPPLY Qty: 1 0RF Rx Instructions: As directed to HOME (DME) [facility]. See Rx Instructions .Route .MEDSUPPLY Qty: 1 0RF Rx Instructions: As directed multivitamin Tablet 1 tab PO QAM aspirin [Adult Aspirin Regimen] 81 mg tablet,delayed release (DR/EC) 81 mg PO QAM 30 Days Qty: 30 0RF atorvastatin 20 mg tablet 20 mg PO QAM Discharge Orders: Discharge ED (Routine); Ordered 08/11/23 Ordered By: Vern Perkins Referrals: Medardo Bowers MD [Primary Care Provider] - Patient Instructions: Alcohol Dependence (ED) Coding Level of Care Code ED Certified Detention Deputy for Katrin Mike
[2023-08-12 00:51] VITALS: BP 124/73; PULSE 72; O2SAT 97
[2023-08-12 01:08] VITALS: BP 124/73; PULSE 72; O2SAT 97
== END 2023-08-12 01:08 | disposition home or self-care (01) ==
PROVIDERS: Emergency Provider Emergency Medicine; PCP Family Medicine
DX: F10.229 Alcohol dependence with intoxication, unspecified (principal); Y90.9 Presence of alcohol in blood, level not specified; Z79.82 Long term (current) use of aspirin; R45.5 Hostility; I25.2 Old myocardial infarction; Z85.048 Personal history of other malignant neoplasm of rectum, rectosigmoid junction, and anus; J44.9 Chronic obstructive pulmonary disease, unspecified; I10 Essential (primary) hypertension; Z86.73 Personal history of transient ischemic attack (TIA), and cerebral infarction without residual deficits; F17.210 Nicotine dependence, cigarettes, uncomplicated
CPT/HCPCS: 99283

== ENCOUNTER 2023-09-15 21:57 | Emergency (ER) | payer MEDICARE, MEDICAID, SELFPAY ==
[2023-09-15 21:58] VITALS: BP 116/66; PULSE 72; RESP 18; TEMP 36.7; O2SAT 100; BMI 17.4
--- NOTE | 2023-09-15 22:07 | ECG_ITS ---
[facility] Test Date: 2023-09-15 Pat Name: Gerardo Millan Department: Room: Gender: Male Equine Vet: : 1950 Requested By: Jackson Tamayo Order Number: [id number] Ray MD: João Jim M.D. Measurements Intervals [place] Rate: 57 P: 102 [place]: 149 QRS: -3 QRSD: 92 T: 58 QT: 467 QTc: 458 Interpretive Statements SINUS BRADYCARDIA PROLONGED QT INTERVAL Compared to ECG 05/15/2023 14:45:29 Prolonged QT interval now present Sinus rhythm no longer present T-wave abnormality no longer present Electronically Signed On 09-19-2023 13:21:00 CDT by João Jim M.D. [id number]
--- NOTE | 2023-09-15 22:07 | ED_ITS ---
HPI - General Adult 2 General: Chief complaint: Alcohol Stated complaint: ETOH Time Seen by Provider: 09/15/23 21:59 History of Present Illness: Patient presents to the ER by EMS for alcohol intoxication. EMS stated that him and his partner were out drinking on their porch that they do every single day and they were arguing and he had rolled over and rolled out of his lawn chair and was on the ground could not get up. Patient says he drinks about 1/5 every single day patient has no complaints at this time. Review of Systems 2 General: Reports: 10 or more systems reviewed and unremarkable except in HPI and below PFSH ED 2 PFSH: Medical History Alcoholic intoxication Peripheral vascular disease Alcohol withdrawal Alcoholic ketoacidosis Hypomagnesemia Alcohol abuse Generalized weakness Depression Anxiety Myocardial infarction Alcoholism Pancreatitis Status post chemoradiation Cholelithiasis Dizziness Anal cancer COPD (chronic obstructive pulmonary disease) Hypertension CVA (cerebral vascular accident) DVT (deep venous thrombosis) Acute dehydration Vomiting Surgical History Status post laparoscopic cholecystectomy (11/13/20) Hx of non-cataract eye surgery Hx of cataract extraction History of ankle surgery History of tonsillectomy Status post colonoscopy Family History Other Family history non-contributory Social History Smoking and tobacco/nicotine status: current every day tobacco/nicotine user cigarettes Packs smoked per day: 0.5 Alcohol intake: current Alcohol intake frequency: 3 or more drinks per day Substance/Drug Use: never Household members: family Housing: House Physical Exam 2 Const: COMMON NORMALS: no acute distress, average body habitus, patient oriented x3, no limitations, healthy appearing, alert and well nourished HENMT: COMMON NORMALS: normocephalic, atraumatic, hearing grossly normal bilaterally, external ears normal, Normal external nose present and moist oral mucous membranes HEAD & SCALP: normocephalic and atraumatic NOSE: Normal external nose present EXTERNAL EAR: Yes external ears normal Eye: COMMON NORMALS: Equal, round and reactive pupils present, EOMs intact bilaterally, conjunctivae normal and no scleral icterus CONJUNCTIVA: Yes conjunctivae normal PUPIL: Yes Equal, round and reactive pupils present Neck/C-Spine: COMMON NORMALS: full ROM, no lymphadenopathy, supple, no meningeal signs, no JVD and Thyroid normal THYROID: Thyroid normal Chest: COMMONS NORMALS: normal inspection of the chest and normal palpation of entire chest wall Resp: COMMON NORMALS: normal respiratory effort, No retractions, No use of accessory muscles and clear to auscultation bilaterally AUSCULTATION: clear to auscultation bilaterally Cardio: COMMON NORMALS: no JVD, regular rate, regular rhythm, S1 normal heart sound present, S2 normal heart sound present, No gallops present (Cardio), No clicks present (Cardio), No murmurs present (Cardio) and No rub (Cardio) R ATE: regular rate RHYTHM: regular rhythm HEART SOUNDS: S1 normal heart sound present and S2 normal heart sound present GI: COMMON NORMALS: Normal to inspection, nondistended, normoactive bowel sounds present, Soft to palpation, non-tender, No hepatosplenomegaly present and no masses PALPATION: Yes Soft to palpation and Yes No hepatosplenomegaly present Neuro: COMMON NORMALS: patient oriented x3 SENSORIUM/ORIENTATION: Yes alert MENINGEAL SIGNS: Yes no meningeal signs Skin: NARRATIVE SKIN EXAM: Multiple superficial abrasions noted to right arm. Course 2 Vital Signs: Vital signs: Vital Signs Temperature 98.0 F 09/15/23 21:58 Pulse Rate 67 09/16/23 02:41 Respiratory Rate 16 09/16/23 02:41 Blood Pressure 109/65 09/16/23 02:41 Pulse Oximetry 96 09/16/23 02:41 Oxygen Delivery Me thod Room Air 09/15/23 21:58 MDM - General Adult Medical Decision Making Lab work was obtained that revealed a magnesium 1.5 and an alcohol of 338. Otherwise unremarkable. Patient alert oriented and coherent and talking. Patient be discharged home instructed the limit is intake of alcohols and follow-up with his PCP for further evaluation and treatment. Differential Diagnosis Alcohol intoxication, fall Medical Records I reviewed the patient's medical records. Lab Data I reviewed the patient's lab results. 09/15/23 22:25 09/15/23 22:25 Laboratory Results WBC 5.13 10^3/uL (3.29-11.43) 09/15/23 22:25 RBC 3.70 10^6/uL (3.85-5.65) L 09/15/23: Hgb 11.40 g/dL (11.27-16.99) 09/15/23: Hct 34.0 % (37-53) L 09/15/23: MCV 91.9 fl (82-101) 09/15/23: MCH 30.8 pg (27-33) 09/15/23: MCHC 33.5 g/dL (30-55) 09/15/23: RDW 18.9 % (12.1-15.1) H 09/15/23: Plt Count 165 10^3/cmm (157-399) 09/15/23: MPV 10.0 fL (7.4-10.4) 09/15/23: Neut % (Auto) 42.8 % 09/15/23: Lymph % (Auto) 36.1 % 09/15/23: [place] % (Auto) 12.7 % 09/15/23: Eos % (Auto) 6.4 % 09/15/23: Baso % (Auto) 1.6 % 09/15/23: Neut # (Auto) 2.20 10^3/uL (1.8-7.7) 09/15/23: Lymph # (Auto) 1.9 10^3/uL (0.8-4.8) 09/15/23: [place] # (Auto) 0.7 10^3/uL (0.2-0.9) 09/15/23: Eos # (Auto) 0.3 10^3/uL (0.0-0.8) 09/15/23: Baso # (Auto) 0.1 10^3/uL (0.0-0.1) 09/15/23: Nucleated RBC % (auto) 0 % 09/15/23: Nucleated RBCs # 0.0 /100WBC 09/15/23: Sodium 141 mmol/L (136-145) 09/15/23: Potassium 3.8 mmol/L (3.5-5.1) 06/17/24 22:25 Chloride 101 mmol/L (98-107) 09/15/23 22:25 Carbon Dioxide 21 mmol/L (22-29) L 09/15/23 22:25 Anion Gap 22.8 (5-19) H 09/15/23 22:25 BUN 14 mg/dL (8-23) 09/15/23 22:25 Creatinine 0.7 mg/dL (0.7-1.2) 09/15/23 22:25 GFR Calculation Not Reportable 09/15/23 22:25 Glucose 78 mg/dL (65-115) 09/15/23 22:25 Calculated Osmolality 291 mOsm/kg (285-295) 09/15/23 22:25 Calcium 8.4 mg/dL (8.5-10.5) L 09/15/23 22:25 Magnesium 1.5 mg/dL (1.7-2.3) L 09/15/23 22:25 Total Bilirubin 0.5 mg/dL (0.15-1.2) 09/15/23 22:25 AST 43 U/L (0-40) H 09/15/23 22:25 ALT 15 U/L (0-41) 09/15/23 22:25 Alkaline Phosphatase 87 U/L (40-130) 09/15/23 22:25 Total Protein 6.5 g/dL (6.6-8.7) L 09/15/23 22:25 Albumin 3.7 g/dL (3.5-5.2) 09/15/23 22:25 Globulin 2.8 g/dL (1.3-4.6) 09/15/23 22:25 Ethyl Alcohol 338 mg/dL (0-10) H* 09/15/23 22:25 No radiology studies performed this visit Discharge Plan Discharge Patient Disposition: Home Clinical Impression: Alcoholic intoxication Qualifiers: Complication of substance-induced condition: uncomplicated Qualified Code(s): F 10.330 - Alcohol use, unspecified with intoxication, uncomplicated Condition: Stable Prescriptions: No Action nitroglycerin [Nitrostat] 0.4 mg tablet, sublingual 0.4 mg sublingual Q5M PRN (Reason: Chest Pain) Rx Instructions: do not exceed 3 doses per episode (DME) foot soak basin See Rx Instructions .Route .MEDSUPPLY Qty: 1 0RF Rx Instructions: As directed to HOME (DME) [facility]. See Rx Instructions .Route .MEDSUPPLY Qty: 1 0RF Rx Instructions: As directed multivitamin Tablet 1 tab PO QAM aspirin [Adult Aspirin Regimen] 81 mg tablet,delayed release (DR/EC) 81 mg PO QAM 30 Days Qty: 30 0RF atorvastatin 20 mg tablet 20 mg PO QAM Discharge Orders: Discharge ED (Routine); Ordered 09/16/23 Ordered By: Jackson Tamayo Referrals: Medardo Bowers MD [Primary Care Provider] - 1 week Patient Instructions: Alcohol Intoxication Activity Restrictions/Additional Instructions: Please limit your use of alcohol. Please follow-up with your family practice physician for further evaluation and treatment as needed. Coding Level of Care Code ED Remotely Operated Vehicle for Katrin Mike
[2023-09-15] MEDS: sodium chloride 0.9% 1,000 ML 999 ML IV (22:25)
[2023-09-15 22:30] LABS: Basophils # 0.1 10^3/uL (0.0-0.1); Basophils % 1.6 %; Eosinophils # 0.3 10^3/uL (0.0-0.8); Eosinophils % 6.4 %; Lymphocytes # 1.9 10^3/uL (0.8-4.8); Lymphocytes % 36.1 %; Mean Corpuscular HGB Conc 33.5 g/dL (30-55); Mean Corpuscular Hemoglobin 30.8 pg (27-33); Mean Corpuscular Volume 91.9 fl (82-101); Monocytes # 0.7 10^3/uL (0.2-0.9); Monocytes % 12.7 %; Neutrophils % 42.8 %; Nucleated Red Blood Cells % 0 %; Platelet Count 165 10^3/cmm (157-399); Red Cell Distribution Width 18.9 % (12.1-15.1); White Blood Count 5.13 10^3/uL (3.29-11.43)
[2023-09-15 22:48] LABS: Alanine Aminotransferase 15 U/L (0-41); Albumin Level 3.7 g/dL (3.5-5.2); Alkaline Phosphatase 87 U/L (40-130); Aspartate Amino Transferase 43 U/L (0-40); Blood Urea Nitrogen 14 mg/dL (8-23); Calcium 8.4 mg/dL (8.5-10.5); Carbon Dioxide 21 mmol/L (22-29); Chloride 101 mmol/L (98-107); Creatinine Clr Calc Pharmacy 69.0778; Globulin 2.8 g/dL (1.3-4.6); Glucose 78 mg/dL (65-115); Magnesium 1.5 mg/dL (1.7-2.3); Osmolality Calculated 291 mOsm/kg (285-295); Sodium 141 mmol/L (136-145); Total Bilirubin 0.5 mg/dL (0.15-1.2); Total Protein 6.5 g/dL (6.6-8.7)
[2023-09-15 22:52] LABS: Anion Gap 22.8 (5-19); Potassium 3.8 mmol/L (3.5-5.1)
[2023-09-15 22:53] LABS: Alcohol Level 338 mg/dL (0-10)
[2023-09-16 00:48] VITALS: PULSE 68; RESP 16; O2SAT 98
[2023-09-16 02:23] VITALS: BP 106/85
[2023-09-16 02:41] VITALS: BP 109/65; PULSE 67; RESP 16; O2SAT 96
[2023-09-16 05:10] VITALS: BP 118/67; PULSE 44; RESP 16; O2SAT 99
[2023-09-16 05:14] VITALS: BP 118/67; PULSE 44; RESP 16; TEMP 36.7; O2SAT 99
[2023-09-16 06:04] VITALS: BP 117/85; PULSE 52; RESP 16; O2SAT 94
== END 2023-09-16 06:17 | disposition home or self-care (01) ==
PROVIDERS: Emergency Provider Emergency Medicine; PCP Family Medicine
DX: F10.920 Alcohol use, unspecified with intoxication, uncomplicated (principal); Z79.82 Long term (current) use of aspirin; Y90.8 Blood alcohol level of 240 mg/100 ml or more; S40.811A Abrasion of right upper arm, initial encounter; I25.2 Old myocardial infarction; Z85.048 Personal history of other malignant neoplasm of rectum, rectosigmoid junction, and anus; J44.9 Chronic obstructive pulmonary disease, unspecified; I10 Essential (primary) hypertension; Z86.73 Personal history of transient ischemic attack (TIA), and cerebral infarction without residual deficits; F17.210 Nicotine dependence, cigarettes, uncomplicated; W07.XXXA Fall from chair, initial encounter
CPT/HCPCS: 80053; 80307; 83735; 85025; 93005; 96360; 96361; 99284; J7030

== ENCOUNTER 2023-09-23 21:58 | Emergency (ER) | payer MEDICARE, MEDICAID, SELFPAY ==
[2023-09-23 22:01] VITALS: BP 118/76; PULSE 64; RESP 18; TEMP 36.7; O2SAT 96; BMI 17.6
--- NOTE | 2023-09-23 22:09 | ED_ITS ---
HPI - Fall 2 General: Chief Complaint: Fall Stated Complaint: general weakness, ETOH Time Seen by Provider: 09/23/23 22:01 History of Present Illness: Patient presents to the ER by EMS with complaints of a fall. Patient was found on the kitchen floor by EMS. He states his brother called. Patient does admit to drinking today. Patient was seen last week for similar episodes he said he drinks 1/5 a day. Patient has no complaints and is not in any pain at this time. Review of Systems 2 General: Reports: 10 or more systems reviewed and unremarkable except in HPI and below PFSH ED 2 PFSH: Medical History Alcoholic intoxication Peripheral vascular disease Alcohol withdrawal Alcoholic ketoacidosis Hypomagnesemia Alcohol abuse Generalized weakness Depression Anxiety Myocardial infarction Alcoholism Pancreatitis Status post chemoradiation Cholelithiasis Dizziness Anal cancer COPD (chronic obstructive pulmonary disease) Hypertension CVA (cerebral vascular accident) DVT (deep venous thrombosis) Acute dehydration Vomiting Surgical History Status post laparoscopic cholecystectomy (11/13/20) Hx of non-cataract eye surgery Hx of cataract extraction History of ankle surgery History of tonsillectomy Status post colonoscopy Family History Other Family history non-contributory Social History Smoking and tobacco/nicotine status: current every day tobacco/nicotine user cigarettes Packs smoked per day: 0.5 Alcohol intake: current Alcohol intake frequency: 3 or more drinks per day Substance/Drug Use: never Household members: family Housing: House Physical Exam 2 Const: COMMON NORMALS: no acute distress, average body habitus, patient oriented x3, no limitations, healthy appearing, alert and well nourished HENMT: COMMON NORMALS: normocephalic, atraumatic, hearing grossly normal bilaterally, external ears normal, Normal external nose present and moist oral mucous membranes HEAD & SCALP: normocephalic and atraumatic NOSE: Normal external nose present EXTERNAL EAR: Yes external ears normal Eye: COMMON NORMALS: Equal, round and reactive pupils present, EOMs intact bilaterally, conjunctivae normal and no scleral icterus CONJUNCTIVA: Yes conjunctivae normal PUPIL: Yes Equal, round and reactive pupils present Neck/C-Spine: COMMON NORMALS: full ROM, no lymphadenopathy, supple, no meningeal signs, no JVD and Thyroid normal THYROID: Thyroid normal Chest: COMMONS NORMALS: normal inspection of the chest and normal palpation of entire chest wall Resp: COMMON NORMALS: normal respiratory effort, No retractions, No use of accessory muscles and clear to auscultation bilaterally AUSCULTATION: clear to auscultation bilaterally Cardio: COMMON NORMALS: no JVD, regular rate, regular rhythm, S1 normal heart sound present, S2 normal heart sound present, No gallops present (Cardio), No clicks present (Cardio), No murmurs present (Cardio) and No rub (Cardio) R ATE: regular rate RHYTHM: regular rhythm HEART SOUNDS: S1 normal heart sound present and S2 normal heart sound present GI: COMMON NORMALS: Normal to inspection, nondistended, normoactive bowel sounds present, Soft to palpation, non-tender, No hepatosplenomegaly present and no masses PALPATION: Yes Soft to palpation and Yes No hepatosplenomegaly present Neuro: COMMON NORMALS: patient oriented x3 SENSORIUM/ORIENTATION: Yes alert MENINGEAL SIGNS: Yes no meningeal signs Course 2 Vital Signs: Vital signs: Vital Signs Temperature 98.0 F 09/23/23 22:01 Pulse Rate 64 09/23/23 22:01 Respiratory Rate 18 09/23/23 22:01 Blood Pressure 118/76 09/23/23 22:01 Pulse Oximetry 96 09/23/23 22:01 Oxygen Delivery Me thod Room Air 09/23/23 22:01 MDM - Fall Medical Decision Making Physical exam was performed labwork was obtained which revealed alcohol level of 349, otherwise stable unremarkable, patient was allowed to sleep here in the ER until his ride comes. Otherwise patient be discharged home. Differential Diagnosis Unlikely syncope, dislocation of shoulder region, fracture of wrist, compression fracture, concussion with loss of consciousness or concussion without loss of consciousness Medical Records I reviewed the patient's medical records. Lab Data I reviewed the patient's lab results. 09/23/23 21:20 09/23/23 22:37 Laboratory Results WBC 6.53 10^3/uL (3.29-11.43) 09/23/23 21:20 RBC 3.64 10^6/uL (3.85-5.65) L 09/23/23 21:20 Hgb 11.50 g/dL (11.27-16.99) 09/23/23 21:20 Hct 34.4 % (37-53) L 09/23/23 21:20 MCV 94.5 fl (82-101) 09/23/23 21:20 MCH 31.6 pg (27-33) 09/23/23 21:20 MCHC 33.4 g/dL (30-55) 09/23/23 21:20 RDW 20.6 % (12.1-15.1) H 09/23/23 21:20 Plt Count 117 10^3/cmm (157-399) L 09/23/23 21:20 MPV 10.7 fL (7.4-10.4) H 09/23/23 21:20 Neut % (Auto) 52.1 % 09/23/23 21:20 Lymph % (Auto) 32.9 % 09/23/23 21:20 [place] % (Auto) 10.6 % 09/23/23 21:20 Eos % (Auto) 2.5 % 09/23/23 21:20 Baso % (Auto) 1.4 % 09/23/23 21:20 Neut # (Auto) 3.41 10^3/uL (1.8-7.7) 09/23/23 21:20 Lymph # (Auto) 2.2 10^3/uL (0.8-4.8) 09/23/23 21:20 [place] # (Auto) 0.7 10^3/uL (0.2-0.9) 09/23/23 21:20 Eos # (Auto) 0.2 10^3/uL (0.0-0.8) 09/23/23 21:20 Baso # (Auto) 0.1 10^3/uL (0.0-0.1) 09/23/23 21:20 Nucleated RBC % (auto) 0 % 09/23/23 21:20 Nucleated RBCs # 0.0 /100WBC 09/23/23 21:20 Sodium 141 mmol/L (136-145) 09/23/23 22:37 Potassium 4.0 mmol/L (3.5-5.1) 09/23/23 22:37 Chloride 100 mmol/L (98-107) 09/23/23 22:37 Carbon Dioxide 22 mmol/L (22-29) 09/23/23 22:37 Anion Gap 23.0 (5-19) H 09/23/23 22:37 BUN 12 mg/dL (8-23) 09/23/23 22:37 Creatinine 0.6 mg/dL (0.7-1.2) L 09/23/23 22:37 GFR Calculation Not Reportable 09/23/23 22:37 Glucose 71 mg/dL (65-115) 09/23/23 22:37 Calculated Osmolality 290 mOsm/kg (285-295) 09/23/23 22:37 Calcium 8.5 mg/dL (8.5-10.5) 09/23/23 22:37 Magnesium 1.5 mg/dL (1.7-2.3) L 09/23/23 22:37 Total Bilirubin 0.5 mg/dL (0.15-1.2) 09/23/23 22:37 AST 67 U/L (0-40) H 09/23/23 22:37 ALT 23 U/L (0-41) 09/23/23 22:37 Alkaline Phosphatase 94 U/L (40-130) 09/23/23 22:37 Total Protein 6.6 g/dL (6.6-8.7) 09/23/23 22:37 Albumin 3.8 g/dL (3.5-5.2) 09/23/23 22:37 Globulin 2.8 g/dL (1.3-4.6) 09/23/23 22:37 Ethyl Alcohol 349 mg/dL (0-10) H* 09/23/23 22:37 No radiology studies performed this visit Discharge Plan Discharge Patient Disposition: Home Clinical Impression: Fall, Alcohol intoxication Condition: Stable Prescriptions: No Action nitroglycerin [Nitrostat] 0.4 mg tablet, sublingual 0.4 mg sublingual Q5M PRN (Reason: Chest Pain) Rx Instructions: do not exceed 3 doses per episode (DME) foot soak basin See Rx Instructions .Route .MEDSUPPLY Qty: 1 0RF Rx Instructions: As directed to HOME (DME) xavier klein. See Rx Instructions .Route .MEDSUPPLY Qty: 1 0RF Rx Instructions: As directed multivitamin Tablet 1 tab PO QAM aspirin [Adult Aspirin Regimen] 81 mg tablet,delayed release (DR/EC) 81 mg PO QAM 30 Days Qty: 30 0RF atorvastatin 20 mg tablet 20 mg PO QAM Discharge Orders: Discharge ED (Routine); Ordered 09/24/23 Ordered By: Jackson Tamayo Referrals: Medardo Bowers MD [Primary Care Provider] - 1 week Patient Instructions: Alcohol Intoxication (DC) Activity Restrictions/Additional Instructions: Your alcohol level was significantly elevated. Please limit further use of alcoholic beverages. Please follow-up with your family practitioner in the next 7 days for further evaluation and treatment. Coding Level of Care Code ED Organic Chemist for Katrin Mike
[2023-09-23 22:18] LABS: Basophils # 0.1 10^3/uL (0.0-0.1); Basophils % 1.4 %; Eosinophils # 0.2 10^3/uL (0.0-0.8); Eosinophils % 2.5 %; Hematocrit 34.4 % (37-53); Lymphocytes # 2.2 10^3/uL (0.8-4.8); Lymphocytes % 32.9 %; Mean Corpuscular HGB Conc 33.4 g/dL (30-55); Mean Corpuscular Hemoglobin 31.6 pg (27-33); Mean Corpuscular Volume 94.5 fl (82-101); Mean Platelet Volume 10.7 fL (7.4-10.4); Monocytes # 0.7 10^3/uL (0.2-0.9); Monocytes % 10.6 %; Neutrophils # 3.41 10^3/uL (1.8-7.7); Neutrophils % 52.1 %; Nucleated Red Blood Cells % 0 %; Platelet Count 117 10^3/cmm (157-399); Red Blood Count 3.64 10^6/uL (3.85-5.65); Red Cell Distribution Width 20.6 % (12.1-15.1); White Blood Count 6.53 10^3/uL (3.29-11.43)
[2023-09-23 22:30] VITALS: BP 105/68; PULSE 56; RESP 15; O2SAT 96
[2023-09-23 23:00] VITALS: BP 99/70; PULSE 66; RESP 16; O2SAT 96
[2023-09-23 23:02] LABS: Alanine Aminotransferase 23 U/L (0-41); Albumin Level 3.8 g/dL (3.5-5.2); Alkaline Phosphatase 94 U/L (40-130); Aspartate Amino Transferase 67 U/L (0-40); Blood Urea Nitrogen 12 mg/dL (8-23); Calcium 8.5 mg/dL (8.5-10.5); Carbon Dioxide 22 mmol/L (22-29); Chloride 100 mmol/L (98-107); Globulin 2.8 g/dL (1.3-4.6); Glucose 71 mg/dL (65-115); Magnesium 1.5 mg/dL (1.7-2.3); Osmolality Calculated 290 mOsm/kg (285-295); Sodium 141 mmol/L (136-145); Total Bilirubin 0.5 mg/dL (0.15-1.2); Total Protein 6.6 g/dL (6.6-8.7)
[2023-09-23 23:04] LABS: Creatinine Clr Calc Pharmacy 69.6138
[2023-09-23 23:06] LABS: Alcohol Level 349 mg/dL (0-10)
[2023-09-23 23:30] VITALS: BP 108/64; PULSE 51; RESP 15; O2SAT 95
[2023-09-24] VITALS (13 sets, daily range): BP systolic 96–125; BP diastolic 58–76; PULSE 44–57; RESP 14–19; O2SAT 93–97
== END 2023-09-24 09:40 | disposition home or self-care (01) ==
PROVIDERS: Emergency Provider Emergency Medicine; PCP Family Medicine
DX: F10.129 Alcohol abuse with intoxication, unspecified (principal); Y90.8 Blood alcohol level of 240 mg/100 ml or more; Z79.82 Long term (current) use of aspirin; F17.210 Nicotine dependence, cigarettes, uncomplicated; I25.2 Old myocardial infarction; Z85.048 Personal history of other malignant neoplasm of rectum, rectosigmoid junction, and anus; J44.9 Chronic obstructive pulmonary disease, unspecified; I10 Essential (primary) hypertension; Z86.73 Personal history of transient ischemic attack (TIA), and cerebral infarction without residual deficits
CPT/HCPCS: 36415; 80053; 80307; 83735; 85025; 99283

== ENCOUNTER 2023-10-05 19:04 | Emergency (ER) | payer MEDICARE, MEDICAID, SELFPAY ==
[2023-10-05 19:07] VITALS: BP 109/71; PULSE 79; RESP 18; TEMP 36.2; O2SAT 96; BMI 17.6
[2023-10-05 19:25] VITALS: BP 109/71; PULSE 65; RESP 18; O2SAT 97
[2023-10-05 19:30] LABS: Basophils # 0.1 10^3/uL (0.0-0.1); Basophils % 0.5 %; Eosinophils % 0.1 %; Hematocrit 33.3 % (37-53); Lymphocytes # 1.1 10^3/uL (0.8-4.8); Lymphocytes % 8.2 %; Mean Corpuscular HGB Conc 33.3 g/dL (30-55); Mean Corpuscular Hemoglobin 31.7 pg (27-33); Mean Corpuscular Volume 95.1 fl (82-101); Mean Platelet Volume 9.6 fL (7.4-10.4); Monocytes # 1.4 10^3/uL (0.2-0.9); Monocytes % 10.6 %; Neutrophils % 80.3 %; Nucleated Red Blood Cells % 0.2 %; Platelet Count 260 10^3/cmm (157-399); Red Cell Distribution Width 20.9 % (12.1-15.1); White Blood Count 13.06 10^3/uL (3.29-11.43)
[2023-10-05] MEDS: sodium chloride 0.9% 1,000 ML 999 ML IV (19:35)
--- NOTE | 2023-10-05 19:43 | XRR_ITS ---
PROCEDURE INFORMATION: Exam: XR Chest Exam date and time: 10/05/2023 7:52 PM Age: 73 years old Clinical indication: Patient HX: Elevated wbc with weight loss. ; Additional info: Leukocytosis, weight loss TECHNIQUE: Imaging protocol: Radiologic exam of the chest. Views: 1 view. COMPARISON: CR XR chest 1V portable [id number] 05/15/2023 2:23 PM FINDINGS: Airway: Prominent rightward tracheal deviation. Lungs: Concern for COPD/emphysema. Scattered bilateral lung nodules, some of which appears slightly larger from prior and some of which may be calcified. Patchy/ground-glass consolidation in the left retrocardiac space. Pleural spaces: Haziness left costophrenic angle. No pneumothorax. Heart/Mediastinum: Mild cardiomegaly. Bones/joints: Multilevel bilateral healed rib fractures. Healed overriding right mid clavicular fracture. No acute fracture. Stable left humeral intramedullary noah. Other findings: Lobulated appearance to the AP window as compared to prior. XR/XR chest 1V portable [id number] IMPRESSION: 1. Scattered pulmonary nodules, some which appear larger and some which may be related to calcified granulomas. 2. High concern for left retrocardiac airspace disease/pneumonia. 3. Possible small left pleural effusion. 4. Prominent rightward tracheal deviation. This is more pronounced as compared to prior and is concerning for a underlying mediastinal neoplasm or adenopathy. Differential would include vascular prominence/tortuosity. 5. Lobulated appearance to the AP window as compared to prior. Also concerning for underlying adenopathy. Differential would include artifact from superimposition of structures. COMMENTS: Prompt follow-up with contrast enhanced chest CT recommended.
[2023-10-05 19:45] LABS: Alanine Aminotransferase 19 U/L (0-41); Albumin Level 3.7 g/dL (3.5-5.2); Alcohol Level 278 mg/dL (0-10); Alkaline Phosphatase 89 U/L (40-130); Aspartate Amino Transferase 41 U/L (0-40); Blood Urea Nitrogen 17 mg/dL (8-23); Calcium 8.3 mg/dL (8.5-10.5); Carbon Dioxide 15 mmol/L (22-29); Chloride 96 mmol/L (98-107); Creatinine Clr Calc Pharmacy 69.6138; Globulin 2.8 g/dL (1.3-4.6); Glucose 114 mg/dL (65-115); Osmolality Calculated 284 mOsm/kg (285-295); Sodium 136 mmol/L (136-145); Total Bilirubin 0.3 mg/dL (0.15-1.2); Total Protein 6.5 g/dL (6.6-8.7)
[2023-10-05 19:49] LABS: Anion Gap 28.7 (5-19); Potassium 3.7 mmol/L (3.5-5.1)
--- NOTE | 2023-10-05 19:55 | ED_ITS ---
HPI - Weakness 2 General: Chief complaint: Weakness Stated complaint: NOT EATING Time Seen by Provider: 10/05/23 19:08 History of Present Illness: 73-year-old male patient with a history of alcohol abuse. He presents with generalized weakness and no appetite he says. It appears he got into an argument with his roommate who is his half brother. He is intoxicated. He is in no distress. Despite his intoxication, he is a decent historian. He says he did not fall, did not hurt himself, and has not been sick any other way. Associated symptoms: Denies chest pain, chills, confusion, fever(s), headache(s), nausea or vomiting Review of Systems 2 Const: Denies: fever(s), chills or body aches Eyes: Denies: change in vision Card: Denies: chest pain or palpitations Resp: Denies: dyspnea, productive cough, non-productive cough or wheezing GI: Denies: abdominal pain, nausea, vomiting, diarrhea or hematochezia Skin/Breast: Denies: rash Neuro: Denies: headache(s), weakness in extremities, dizziness or confusion PFSH ED 2 PFSH: Medical History Alcoholic intoxication Peripheral vascular disease Alcohol withdrawal Alcoholic ketoacidosis Hypomagnesemia Alcohol abuse Generalized weakness Depression Anxiety Myocardial infarction Alcoholism Pancreatitis Status post chemoradiation Cholelithiasis Dizziness Anal cancer COPD (chronic obstructive pulmonary disease) Hypertension CVA (cerebral vascular accident) DVT (deep venous thrombosis) Acute dehydration Vomiting Surgical History Status post laparoscopic cholecystectomy (11/13/20) Hx of non-cataract eye surgery Hx of cataract extraction History of ankle surgery History of tonsillectomy Status post colonoscopy Family History Other Family history non-contributory Social History Smoking and tobacco/nicotine status: current every day tobacco/nicotine user cigarettes Packs smoked per day: 0.5 Alcohol intake: current Alcohol intake frequency: 3 or more drinks per day Substance/Drug Use: never Household members: family Housing: House Physical Exam 2 Const: COMMON NORMALS: no acute distress GENERAL APPEARANCE: cooperative and frail appearing (Mildly); not ill appearing HENMT: COMMON NORMALS: normocephalic, atraumatic and Normal external nose present HEAD & SCALP: normocephalic and atraumatic FACE & SINUS: normal facial exam and face symmetric NOSE: Normal external nose present Eye: COMMON NORMALS: Equal, round and reactive pupils present and EOMs intact bilaterally PUPIL: Yes Equal, round and reactive pupils present Neck/C-Spine: GENERAL: Yes trachea midline Chest: CHEST: Yes Symmetrical chest wall rise Resp: COMMON NORMALS: normal respiratory effort, No retractions, No use of accessory muscles and clear to auscultation bilaterally AUSCULTATION: clear to auscultation bilaterally Cardio: COMMON NORMALS: regular rate and regular rhythm RATE: regular rate RHYTHM: regular rhythm GI: COMMON NORMALS: Normal to inspection, nondistended, normoactive bowel sounds present Extremity: COMMON NORMALS: no pedal edema Neuro: [place] COMA SCALE: document GCS findings [place] coma scale eye opening: Spontaneous [place] coma scale verbal response: Orientated [place] coma scale motor response: Obey commands [place] coma scale total score: 15 S ENSORY EXAM: Yes extremities (intact) Psych: COMMON NORMALS: speech normal SPEECH: Yes normal speech Skin: COMMON NORMALS: no rashes or lesions noted GENERAL SKIN EXAM: no rashes or lesions noted Course 2 Vital Signs: Vital signs: Vital Signs Temperature 97.1 F L 10/05/23 19:07 Pulse Rate 58 L 10/05/23 22:37 Respiratory Rate 18 10/05/23 22:37 Blood Pressure 108/60 10/05/23 22:37 Pulse Oximetry 97 10/05/23 22:37 Oxygen Delivery Me thod Room Air 10/05/23 19:25 MDM - Weakness Medical Decision Making Examination reveals an unkempt gentleman who is mildly frail. He appears mildly weak. He is quite articulate despite his alcohol intoxication. EtOH level is 278. Bicarbonate level is 15. White blood cell count is 13, with a hemoglobin 11. Chest x-ray shows chronic findings that will need to be followed up.He will be allowed discharge. Lab Data 10/05/23 19:20 10/05/23 19:20 Radiology Impressions Chest X-Ray 10/05/23 19:43 IMPRESSION: 1. Scattered pulmonary nodules, some which appear larger and some which may be related to calcified granulomas. 2. High concern for left retrocardiac airspace disease/pneumonia. 3. Possible small left pleural effusion. 4. Prominent rightward tracheal deviation. This is more pronounced as compared to prior and is concerning for a underlying mediastinal neoplasm or adenopathy. Differential would include vascular prominence/tortuosity. 5. Lobulated appearance to the AP window as compared to prior. Also concerning for underlying adenopathy. Differential would include artifact from superimposition of structures. COMMENTS: Prompt follow-up with contrast enhanced chest CT recommended. Laboratory Results WBC 13.06 10^3/uL (3.29-11.43) H 10/05/23 19:20 RBC 3.50 10^6/uL (3.85-5.65) L 10/05/23 19:20 Hgb 11.10 g/dL (11.27-16.99) L 10/05/23 19:20 Hct 33.3 % (37-53) L 10/05/23 19:20 MCV 95.1 fl (82-101) 10/05/23 19:20 MCH 31.7 pg (27-33) 10/05/23 19:20 MCHC 33.3 g/dL (30-55) 10/05/23 19:20 RDW 20.9 % (12.1-15.1) H 10/05/23 19:20 Plt Count 260 10^3/cmm (157-399) 10/05/23 19:20 MPV 9.6 fL (7.4-10.4) 10/05/23 19:20 Neut % (Auto) 80.3 % 10/05/23 19:20 Lymph % (Auto) 8.2 % 10/05/23 19:20 [place] % (Auto) 10.6 % 10/05/23 19:20 Eos % (Auto) 0.1 % 10/05/23 19:20 Baso % (Auto) 0.5 % 10/05/23 19:20 Neut # (Auto) 10.50 10^3/uL (1.8-7.7) H 10/05/23 19:20 Lymph # (Auto) 1.1 10^3/uL (0.8-4.8) 10/05/23 19:20 [place] # (Auto) 1.4 10^3/uL (0.2-0.9) H 10/05/23 19:20 Eos # (Auto) 0.0 10^3/uL (0.0-0.8) 10/05/23 19:20 Baso # (Auto) 0.1 10^3/uL (0.0-0.1) 10/05/23 19:20 Nucleated RBC % (auto) 0.2 % 10/05/23 19:20 Nucleated RBCs # 0.0 /100WBC 10/05/23 19:20 Sodium 136 mmol/L (136-145) 10/05/23 19:20 Potassium 3.7 mmol/L (3.5-5.1) 10/05/23 19:20 Chloride 96 mmol/L (98-107) L 10/05/23 19:20 Carbon Dioxide 15 mmol/L (22-29) L 10/05/23 19:20 Anion Gap 28.7 (5-19) H 10/05/23 19:20 BUN 17 mg/dL (8-23) 10/05/23 19:20 Creatinine 0.7 mg/dL (0.7-1.2) 10/05/23 19:20 GFR Calculation Not Reportable 10/05/23 19:20 Glucose 114 mg/dL (65-115) 10/05/23 19:20 Calculated Osmolality 284 mOsm/kg (285-295) L 10/05/23 19:20 Calcium 8.3 mg/dL (8.5-10.5) L 10/05/23 19:20 Total Bilirubin 0.3 mg/dL (0.15-1.2) 10/05/23 19:20 AST 41 U/L (0-40) H 10/05/23 19:20 ALT 19 U/L (0-41) 10/05/23 19:20 Alkaline Phosphatase 89 U/L (40-130) 10/05/23 19:20 Total Protein 6.5 g/dL (6.6-8.7) L 10/05/23 19:20 Albumin 3.7 g/dL (3.5-5.2) 10/05/23 19:20 Globulin 2.8 g/dL (1.3-4.6) 10/05/23 19:20 Ethyl Alcohol 278 mg/dL (0-10) H 10/05/23 19:20 XR interpretation done by ED provider, pending radiology final review Discharge Plan Discharge Patient Disposition: Home Clinical Impression: Alcohol intoxication Condition: Stable Prescriptions: No Action nitroglycerin [Nitrostat] 0.4 mg tablet, sublingual 0.4 mg sublingual Q5M PRN (Reason: Chest Pain) Rx Instructions: do not exceed 3 doses per episode (DME) foot soak basin See Rx Instructions .Route .MEDSUPPLY Qty: 1 0RF Rx Instructions: As directed to HOME (DME) [facility]avier klein. See Rx Instructions .Route .MEDSUPPLY Qty: 1 0RF Rx Instructions: As directed multivitamin Tablet 1 tab PO QAM aspirin [Adult Aspirin Regimen] 81 mg tablet,delayed release (DR/EC) 81 mg PO QAM 30 Days Qty: 30 0RF atorvastatin 20 mg tablet 20 mg PO QAM Discharge Orders: Discharge ED (Routine); Ordered 10/05/23 Ordered By: Joey Leon Referrals: Medardo Bowers MD [Primary Care Provider] - Patient Instructions: Alcohol Intoxication (ED), Opioid Safety, Pain Management Activity Restrictions/Additional Instructions: See your doctor next week Coding Level of Care Code ED [employer] Operator for Katrin Mike
[2023-10-05 22:37] VITALS: BP 108/60; PULSE 58; RESP 18; O2SAT 97
== END 2023-10-05 22:30 | disposition home or self-care (01) ==
PROVIDERS: Emergency Provider Emergency Medicine; PCP Family Medicine
DX: F10.129 Alcohol abuse with intoxication, unspecified (principal); Y90.8 Blood alcohol level of 240 mg/100 ml or more; Z79.82 Long term (current) use of aspirin; F17.210 Nicotine dependence, cigarettes, uncomplicated; I25.2 Old myocardial infarction; Z85.048 Personal history of other malignant neoplasm of rectum, rectosigmoid junction, and anus; J44.9 Chronic obstructive pulmonary disease, unspecified; I10 Essential (primary) hypertension; Z86.73 Personal history of transient ischemic attack (TIA), and cerebral infarction without residual deficits
CPT/HCPCS: 71045; 80053; 80307; 85025; 96360; 99284; J7030

== ENCOUNTER 2023-11-13 17:08 | Emergency (ER) | payer MEDICARE, MEDICAID, SELFPAY ==
[2023-11-13 17:19] VITALS: BP 103/69; PULSE 73; TEMP 36.6; O2SAT 94; BMI 19.0
--- NOTE | 2023-11-13 17:42 | ECG_ITS ---
[facility] Test Date: 2023-11-13 Pat Name: Gerardo Millan Department: Room: Gender: Male Compounder Helper: : 1950 Requested By: Hoang Krishna Order Number: [id number] Bell MD: Jhonathan Fernandez M.D. Measurements Intervals Hansen Rate: 57 P: 87 KS: 174 QRS: 6 QRSD: 84 T: 44 QT: 435 QTc: 424 Interpretive Statements SINUS BRADYCARDIA Compared to ECG 09/15/2023 22:04:15 Prolonged QT interval no longer present Electronically Signed On 11-14-2023 7:52:03 CDT by Jhonathan Fernandez M.D. [email or web address]
--- NOTE | 2023-11-13 17:43 | W.ED.EXTPRO ---
HPI - Extremity Problem General: Chief complaint: Extremity Injury, Upper Stated complaint: fall, etoh Time Seen by Provider: 11/13/23 17:16 Source: patient Mode of arrival: EMS Limitations: no limitations History of Present Illness: This patient who is a known to this emergency department and has a chronic alcohol use disorder apparently slid out of his chair at home. His brother called EMS because his brother does not have the ability to help him out of the floor himself. The patient states that he did not strike his head he actually did not fall he again he slid out of bed and rubbed his left upper arm against part of the furniture causing an abrasion but he did not otherwise injure himself. EMS arrived and found to be slightly hypotensive with a also low blood sugar and transported him to the emergency department. The patient admits to drinking today as he usually does. He states he did eat some food today. He takes statin and aspirin but takes no antihypertensives. He denies any pain or discomfort at this time. Associated symptoms: Deny chest pain or fever(s) Related Data Home Medications Medication Instructions Recorded Confirmed nitroglycerin 0.4 mg sublingual 0.4 mg sublingual Q5M PRN Chest 10/18/20 09/24/23 tablet (Nitrostat) Pain atorvastatin 20 mg tablet 20 mg PO QAM 09/14/22 09/24/23 multivitamin 1 tab PO QAM 02/22/23 09/24/23 Previous Rx's Medication Instructions Recorded foot soak basin #1 ea 12/09/22 park brace. #1 ea 02/18/23 aspirin 81 mg tablet,delayed 81 mg PO QAM 30 days #30 tabs 02/27/23 release (Adult Aspirin Regimen) Allergies Allergy/AdvReac Type Severity Reaction Status Date / Time corn Allergy ADR-Nausea Verified 11/13/23 17:26 [place] Allergy Uknown Verified 11/13/23 17:26 pear Allergy ALGY-Rash Verified 11/13/23 17:26 Penicillins Allergy ALGY-Difficulty Verified 11/13/23 17:26 Breathing Review of Systems Const: Denies: fever(s) or chills Eyes: Denies: change in vision Card: Denies: chest pain, palpitations, syncope or pre-syncope Resp: Denies: dyspnea, productive cough or non-productive cough GI: Denies: abdominal pain, nausea, vomiting or diarrhea : Denies: flank pain, difficulty urinating, dysuria or urinary frequency Musc: Denies: neck pain, back pain, extremity pain or extremity swelling Skin/Breast: Reports: new lesions Neuro: Denies: numbness in extremities, weakness in extremities, dizziness, vertigo or seizure-like activity Psych: Denies: suicidal ideation or homicidal ideation PFSH ED PFSH: Medical History Alcoholic intoxication Peripheral vascular disease Alcohol withdrawal Alcoholic ketoacidosis Hypomagnesemia Alcohol abuse Generalized weakness Depression Anxiety Myocardial infarction Alcoholism Pancreatitis Status post chemoradiation Cholelithiasis Dizziness Anal cancer COPD (chronic obstructive pulmonary disease) Hypertension CVA (cerebral vascular accident) DVT (deep venous thrombosis) Acute dehydration Vomiting Surgical History Status post laparoscopic cholecystectomy (11/13/20) Hx of non-cataract eye surgery Hx of cataract extraction History of ankle surgery History of tonsillectomy Status post colonoscopy Family History Other Family history non-contributory Social History Smoking and tobacco/nicotine status: current every day tobacco/nicotine user cigarettes Packs smoked per day: 0.5 Alcohol intake: current Alcohol intake frequency: 3 or more drinks per day Substance/Drug Use: never Household members: family Housing: House Physical Exam Narrative: EXAM NARRATIVE: He is a thin elderly gentleman who answers questions and continues in a rather loquacious fashion but is in no acute distress and cooperative. Const: COMMON NORMALS: no acute distress and patient oriented x3 GENERAL APPEARANCE: cooperative NUTRITIONAL APPEARANCE: thin ORIENTATION/CONSCIOUSNESS: Yes awake HENMT: COMMON NORMALS: normocephalic, atraumatic, Normal nasal mucous membranes and turbinates present, moist oral mucous membranes and oropharynx normal HEAD & SCALP: normocephalic and atraumatic FACE & SINUS: normal facial exam and face symmetric NOSE: Normal nasal mucous membranes and turbinates present Eye: COMMON NORMALS: Equal, round and reactive pupils present CORNEA: Yes other (He has a opacified left cornea) PUPIL: Yes Equal, round and reactive pupils present Neck/C-Spine: COMMON NORMALS: full ROM CERVICAL SPINE: Yes cervical ROM normal, No pain with cervical ROM, No Cervical spine tenderness, No step off deformity, No Paracervical muscle tenderness, No Paracervical spasm and No Trapezius muscle tenderness Chest: COMMONS NORMALS: normal inspection of the chest and normal palpation of entire chest wall Resp: COMMON NORMALS: normal respiratory effort, No retractions and clear to auscultation bilaterally AUSCULTATION: clear to auscultation bilaterally Cardio: COMMON NORMALS: regular rate, regular rhythm, No murmurs present (Cardio) and Peripheral pulses 2+ throughout RATE: regular rate RHYTHM: regular rhythm PERIPHERAL PULSES: Peripheral pulses 2+ throughout GI: COMMON NORMALS: Normal to inspection, nondistended, normoactive bowel sounds present, Soft to palpation and non-tender PALPATION: Yes Soft to palpation : COMMON NORMALS: Yes no CVA tenderness BLADDER/KIDNEY EXAM: Yes no CVA tenderness Back/Pelvis: COMMON NORMALS: no CVA tenderness, thoracic and lumbar spine normal to inspection, no thoracic nor lumbar tenderness, thoraco-lumbar ROM normal and straight leg raise negative bilaterally Extremity: COMMON NORMALS: full ROM, capillary refill normal and no calf tenderness NARRATIVE EXTREMITY EXAM: He has no deformity of any extremities moves all extremities and normal range of motion. He does have some superficial abrasion to his left humerus with small ecchymotic area. But he has no deformity or local tenderness and has intact range of motion with intact neurovascular status. Neuro: COMMON NORMALS: patient oriented x3, moves all extremities, no focal motor deficits and no sensory deficits noted Psych: COMMON NORMALS: mental status grossly normal and cooperative Skin: COMMON NORMALS: no jaundice and no petechiae TRAUMA: abrasion Course Reevaluation(s): Reevaluation #1: The patient's magnesium has been repleted orally as he refused IV magnesium. He has received IV fluids. He has no evidence of serious injury at this time. He is a chronic alcoholic use disorder patient who did not suffer any significant injury today and is suitable to be discharged back to his domicile. He has no intentions on changing his style habits. No evidence at this time of an ongoing emergency medical condition. Time: 20:06 Vital Signs: Vital signs: Vital Signs Temperature 97.9 F 11/13/23 17:19 Pulse Rate 82 08/15/24 19:26 Respiratory Rate 12 11/13/23 19:26 Blood Pressure 95/58 11/13/23 19:26 Pulse Oximetry 100 11/13/23 19:26 Oxygen Delivery Me thod Room Air 11/13/23 19:26 MDM - Extremity (Nontraumatic) Medical Decision Making This patient who has a chronic history of alcohol use disorder was transported the emergency department from his home that he shares with his brother. He apparently slid out of a chair after drinking today and suffered an abrasion to his left arm. There was no prodrome to include syncope etc. related to his current event. Apparently EMS was contacted to help with lifting him at home and noted low blood sugar and low blood pressure and therefore transported him to the emergency department. The patient was evaluated and found to have no evidence of injury other than abrasion to his left upper arm. There was no evidence to suggest other injury or concerns. He received cardiac monitoring basic laboratories IV fluids as well as repeat evaluations. He remained clinically stable his magnesium was repleted and he is suitable to be discharged to his domicile. Lab Data I reviewed the patient's lab results. 11/13/23 16:41 11/13/23 16:41 Laboratory Results WBC 5.45 10^3/uL (3.29-11.43) 11/13/23 16:41 RBC 3.34 10^6/uL (3.85-5.65) L 11/13/23 16:41 Hgb 10.20 g/dL (11.27-16.99) L 11/13/23 16:41 Hct 31.2 % (37-53) L 11/13/23 16:41 MCV 93.4 fl (82-101) 11/13/23 16:41 MCH 30.5 pg (27-33) 11/13/23 16:41 MCHC 32.7 g/dL (30-55) 11/13/23 16:41 RDW 21.0 % (12.1-15.1) H 11/13/23 16:41 Plt Count 168 10^3/cmm (157-399) 11/13/23 16:41 MPV 9.9 fL (7.4-10.4) 11/13/23 16:41 Neut % (Auto) 37.1 % 11/13/23 16:41 Lymph % (Auto) 37.8 % 11/13/23 16:41 [place] % (Auto) 16.0 % 11/13/23 16:41 Eos % (Auto) 7.0 % 11/13/23 16:41 Baso % (Auto) 1.5 % 11/13/23 16:41 Neut # (Auto) 2.03 10^3/uL (1.8-7.7) 11/13/23 16:41 Lymph # (Auto) 2.1 10^3/uL (0.8-4.8) 11/13/23 16:41 [place] # (Auto) 0.9 10^3/uL (0.2-0.9) 11/13/23 16:41 Eos # (Auto) 0.4 10^3/uL (0.0-0.8) 11/13/23 16:41 Baso # (Auto) 0.1 10^3/uL (0.0-0.1) 11/13/23 16:41 Nucleated RBC % (auto) 0 % 11/13/23 16:41 Nucleated RBCs # 0.0 /100WBC 11/13/23 16:41 Sodium 143 mmol/L (136-145) 11/13/23 16:41 Potassium 3.6 mmol/L (3.5-5.1) 11/13/23 16:41 Chloride 102 mmol/L (98-107) 11/13/23 16:41 Carbon Dioxide 24 mmol/L (22-29) 11/13/23 16:41 Anion Gap 20.6 (5-19) H 11/13/23 16:41 BUN 13 mg/dL (8-23) 11/13/23 16:41 Creatinine 0.7 mg/dL (0.7-1.2) 11/13/23 16:41 GFR Calculation Not Reportable 11/13/23 16:41 Glucose 79 mg/dL (65-115) 11/13/23 16:41 Calculated Osmolality 295 mOsm/kg (285-295) 11/13/23 16:41 Calcium 8.9 mg/dL (8.5-10.5) 11/13/23 16:41 Magnesium 1.2 mg/dL (1.7-2.3) L 11/13/23 16:41 No radiology studies performed this visit EKG Data EKG 1: I personally reviewed and interpreted this EKG as follows: Interpretation: Resting EKG reveals ventricular rate of 57 bpm consistent with sinus bradycardia. [place] interval is normal, QRS duration is normal, corrected QT intervals normal. [place] are normal. Sinus bradycardia without any acute ST-T changes. Discharge Plan Discharge Clinical Impression: Alcohol use disorder, Hypomagnesemia Abrasion of arm, left Qualifiers: Encounter type: initial encounter Qualified Code(s): S40.812A - Abrasion of left upper arm, initial encounter Condition: Stable Prescriptions: No Action nitroglycerin [Nitrostat] 0.4 mg tablet, sublingual 0.4 mg sublingual Q5M PRN (Reason: Chest Pain) Rx Instructions: do not exceed 3 doses per episode (DME) foot soak basin See Rx Instructions .Route .MEDSUPPLY Qty: 1 0RF Rx Instructions: As directed to HOME (DME) xavier klein. See Rx Instructions .Route .MEDSUPPLY Qty: 1 0RF Rx Instructions: As directed multivitamin Tablet 1 tab PO QAM aspirin [Adult Aspirin Regimen] 81 mg tablet,delayed release (DR/EC) 81 mg PO QAM 30 Days Qty: 30 0RF atorvastatin 20 mg tablet 20 mg PO QAM Referrals: Medardo Bowers MD [Primary Care Provider] - Discharge Diet: Usual diet Discharge Activity: Resume usual activity Activity Restrictions/Additional Instructions: Do not drink alcohol. Continue to take your usual medications including [id number] magnesium 400 mg twice a daily. Make sure that you eat regular meals and drink at least 2 quarts of other fluids besides alcohol daily. Coding Level of Care Code ED Continuous Improvement Consultant for Katrin Mike
[2023-11-13 18:21] LABS: Basophils # 0.1 10^3/uL (0.0-0.1); Basophils % 1.5 %; Eosinophils # 0.4 10^3/uL (0.0-0.8); Hematocrit 31.2 % (37-53); Lymphocytes # 2.1 10^3/uL (0.8-4.8); Lymphocytes % 37.8 %; Mean Corpuscular HGB Conc 32.7 g/dL (30-55); Mean Corpuscular Hemoglobin 30.5 pg (27-33); Mean Corpuscular Volume 93.4 fl (82-101); Mean Platelet Volume 9.9 fL (7.4-10.4); Monocytes # 0.9 10^3/uL (0.2-0.9); Neutrophils # 2.03 10^3/uL (1.8-7.7); Neutrophils % 37.1 %; Nucleated Red Blood Cells % 0 %; Platelet Count 168 10^3/cmm (157-399); Red Blood Count 3.34 10^6/uL (3.85-5.65); White Blood Count 5.45 10^3/uL (3.29-11.43)
[2023-11-13 18:31] LABS: Anion Gap 20.6 (5-19); Blood Urea Nitrogen 13 mg/dL (8-23); Calcium 8.9 mg/dL (8.5-10.5); Carbon Dioxide 24 mmol/L (22-29); Chloride 102 mmol/L (98-107); Creatinine Clr Calc Pharmacy 74.9688; Glucose 79 mg/dL (65-115); Magnesium 1.2 mg/dL (1.7-2.3); Osmolality Calculated 295 mOsm/kg (285-295); Potassium 3.6 mmol/L (3.5-5.1); Sodium 143 mmol/L (136-145)
[2023-11-13] MEDS: lactated ringers 1,000 ML 999 ML IV (18:32)
--- NOTE | 2023-11-13 19:20 | PC.NURSE ---
PT REFUSED IV MAGNESIUM.
[2023-11-13] MEDS: magnesium oxide 400 mg tablet 800 MG PO (19:24)
[2023-11-13 19:26] VITALS: BP 95/58; PULSE 82; RESP 12; O2SAT 100
== END 2023-11-13 21:02 | disposition home or self-care (01) ==
PROVIDERS: Emergency Provider Emergency Medicine; PCP Family Medicine
DX: S40.812A Abrasion of left upper arm, initial encounter (principal); E83.42 Hypomagnesemia; F10.90 Alcohol use, unspecified, uncomplicated; R00.1 Bradycardia, unspecified; F17.210 Nicotine dependence, cigarettes, uncomplicated; I25.2 Old myocardial infarction; Z85.048 Personal history of other malignant neoplasm of rectum, rectosigmoid junction, and anus; J44.9 Chronic obstructive pulmonary disease, unspecified; I10 Essential (primary) hypertension; Z86.73 Personal history of transient ischemic attack (TIA), and cerebral infarction without residual deficits; W07.XXXA Fall from chair, initial encounter
CPT/HCPCS: 80048; 83735; 85025; 93005; 96372; 99284; J3411; J7120

== ENCOUNTER 2023-11-21 17:39 | Emergency (ER) | payer MEDICARE, MEDICAID, SELFPAY ==
[2023-11-21 17:46] VITALS: BP 122/65; PULSE 57; RESP 18; TEMP 36.8; O2SAT 97; BMI 18.3
--- NOTE | 2023-11-21 17:51 | XRR_ITS ---
PROCEDURE INFORMATION: Exam: XR Left Humerus Exam date and time: 11/21/2023 6:05 PM Age: 73 years old Clinical indication: Injury or trauma; Fall; Other: Pain; Prior surgery; Surgery date: 6+ months; Surgery type: Escobar in R humerus; Additional info: Fall, shoulder pain TECHNIQUE: Imaging protocol: Radiologic exam of the left humerus. Views: 2 or more views. COMPARISON: [place] [id number] 07/03/2023 4:02 PM FINDINGS: Bones/joints: Intramedullary escobar with proximal and distal interlocking screws overlies a chronic fracture of the distal left humerus in unchanged alignment. No periprosthetic lucency. The elbow and shoulder appear well aligned. The bones are osteopenic. Chronic deformities of the left ribs. Soft tissues: Normal. XR/[place] [id number] IMPRESSION: Hardware overlies a chronic fracture of the distal left humerus in unchanged alignment. No evidence to suggest acute fracture.
--- NOTE | 2023-11-21 17:56 | W.ED.FALL ---
HPI - Fall General: Chief Complaint: Fall Stated Complaint: fall Time Seen by Provider: 11/21/23 17:40 History of Present Illness: 73-year-old man with a history of DVT, CVA, COPD, alcohol abuse, pancreatitis who presents emergency room by ambulance after he had a fall the day. He is having some pain in his left shoulder and his left hip. He was still able to walk. He moves his arm around vigorously when he describes the brought that he has in his arm. No head injury. Related Data Home Medications Medication Instructions Recorded Confirmed nitroglycerin 0.4 mg sublingual 0.4 mg sublingual Q5M PRN Chest 10/18/20 09/24/23 tablet (Nitrostat) Pain atorvastatin 20 mg tablet 20 mg PO QAM 09/14/22 09/24/23 multivitamin 1 tab PO QAM 02/22/23 09/24/23 Previous Rx's Medication Instructions Recorded foot soak basin #1 ea 12/09/22 park brace. #1 ea 02/18/23 aspirin 81 mg tablet,delayed 81 mg PO QAM 30 days #30 tabs 02/27/23 release (Adult Aspirin Regimen) Allergies Allergy/AdvReac Type Severity Reaction Status Date / Time corn Allergy ADR-Nausea Verified 11/13/23 17:26 [place] Allergy Uknown Verified 11/13/23 17:26 [place] Allergy ALGY-Rash Verified 11/13/23 17:26 Penicillins Allergy ALGY-Difficulty Verified 11/13/23 17:26 Breathing Review of Systems Narrative: Constitutional symptoms: Negative except as documented in HPI. Skin symptoms: Negative except as documented in HPI. Eye symptoms: Negative except as documented in HPI. ENMT symptoms: Negative except as documented in HPI. Respiratory symptoms: Negative except as documented in HPI. Cardiovascular symptoms: Negative except as documented in HPI. Gastrointestinal symptoms: Negative except as documented in HPI. Genitourinary symptoms: Negative except as documented in HPI. Musculoskeletal symptoms: Negative except as documented in HPI. Neurologic symptoms: Negative except as documented in HPI. Psychiatric symptoms: Negative except as documented in HPI. Endocrine symptoms: Negative except as documented in HPI. PFS ED PFSH: Medical History Alcoholic intoxication Peripheral vascular disease Alcohol withdrawal Alcoholic ketoacidosis Hypomagnesemia Alcohol abuse Generalized weakness Depression Anxiety Myocardial infarction Alcoholism Pancreatitis Status post chemoradiation Cholelithiasis Dizziness Anal cancer COPD (chronic obstructive pulmonary disease) Hypertension CVA (cerebral vascular accident) DVT (deep venous thrombosis) Acute dehydration Vomiting Surgical History Status post laparoscopic cholecystectomy (11/13/20) Hx of non-cataract eye surgery Hx of cataract extraction History of ankle surgery History of tonsillectomy Status post colonoscopy Family History Other Family history non-contributory Social History Smoking and tobacco/nicotine status: current every day tobacco/nicotine user cigarettes Packs smoked per day: 0.5 Alcohol intake: current Alcohol intake frequency: 3 or more drinks per day Substance/Drug Use: never Household members: family Housing: House Physical Exam Narrative: EXAM NARRATIVE: General: Alert, no acute distress. Skin: Warm, dry. Head: Normocephalic, atraumatic. Neck: Supple, trachea midline. Eye: Extraocular movements are intact. Ears, nose, mouth and throat: mucosa moist. Cardiovascular: Regular, Normal peripheral perfusion. Respiratory: Lungs are clear to auscultation, respirations are non-labored, breath sounds are equal, Symmetrical chest wall expansion. Gastrointestinal: Soft, Nontender, Non distended Musculoskeletal: Normal ROM, no deformity. Neurological: Alert and oriented, No focal neurological deficit observed. Psychiatric: Cooperative, appropriate mood & affect. Course Vital Signs: Vital signs: Vital Signs Temperature 98.2 F 11/21/23 17:46 Pulse Rate 57 L 11/21/23 17:46 Respiratory Rate 18 11/21/23 17:46 Blood Pressure 122/65 11/21/23 17:46 Pulse Oximetry 97 11/21/23 17:46 Oxygen Delivery Me thod Room Air 11/21/23 17:46 MDM - Fall Medical Decision Making X-ray of the left humerus shows old hardware with improved healing of midshaft fracture. This was reviewed and interpreted by myself the emergency room physician. I also reviewed the radiology report. Assessment and plan: Fall Arm pain - Discharged home - Discussed plan with patient. Answered any questions. - Evaluation and treatment of this problem were appropriate in the emergency setting. All radiology interpretation(s) finalized by discharge Discharge Plan Discharge Patient Disposition: Home Clinical Impression: Fall, Arm pain Condition: Stable Prescriptions: No Action nitroglycerin [Nitrostat] 0.4 mg tablet, sublingual 0.4 mg sublingual Q5M PRN (Reason: Chest Pain) Rx Instructions: do not exceed 3 doses per episode (DME) foot soak basin See Rx Instructions .Route .MEDSUPPLY Qty: 1 0RF Rx Instructions: As directed to HOME (DME) xavier klein. See Rx Instructions .Route .MEDSUPPLY Qty: 1 0RF Rx Instructions: As directed multivitamin Tablet 1 tab PO QAM aspirin [Adult Aspirin Regimen] 81 mg tablet,delayed release (DR/EC) 81 mg PO QAM 30 Days Qty: 30 0RF atorvastatin 20 mg tablet 20 mg PO QAM Discharge Orders: Discharge ED (Routine); Ordered 11/21/23 Ordered By: Cyn Giles Referrals: Medardo Bowers MD [Primary Care Provider] - Discharge Diet: Usual diet Discharge Activity: Increase activity as tolerated Patient Instructions: Opioid Safety, Pain Management Activity Restrictions/Additional Instructions: Thank you for choosing [facility] for your healthcare needs today. Please realize this is an emergency room and that we are providing you with a medical screening exam and this may not be complete and all inclusive of all the testing and or work up that you may need to determine your ailment or severity of your illness. You have been screened and evaluated and felt safe for discharge. Health conditions do change or evolve sometimes and as such it is important that you follow up with your Primary Doctor to be re checked, 3-5 days is a general good time frame for follow up. You are always welcome to return to the ED for re assessment if your symptoms are worsening or you have new concerns Coding Level of Care Code ED Fire Code Inspector for Katrin Mike
[2023-11-21 18:45] VITALS: BP 108/65; O2SAT 96
[2023-11-21 19:12] VITALS: BP 109/65; PULSE 58; O2SAT 94
== END 2023-11-21 19:13 | disposition home or self-care (01) ==
PROVIDERS: Emergency Provider Emergency Medicine; PCP Family Medicine
DX: M25.512 Pain in left shoulder (principal); F17.210 Nicotine dependence, cigarettes, uncomplicated; I25.2 Old myocardial infarction; Z85.048 Personal history of other malignant neoplasm of rectum, rectosigmoid junction, and anus; J44.9 Chronic obstructive pulmonary disease, unspecified; I10 Essential (primary) hypertension; Z86.73 Personal history of transient ischemic attack (TIA), and cerebral infarction without residual deficits; W19.XXXA Unspecified fall, initial encounter
CPT/HCPCS: 73060; 99283

== ENCOUNTER 2023-12-01 03:33 | Emergency (ER) | payer MEDICARE, MEDICAID, SELFPAY ==
[2023-12-01 03:34] VITALS: BP 113/67; PULSE 61; RESP 18; TEMP 36.7; O2SAT 98; BMI 18.3
[2023-12-01 04:00] VITALS: BP 102/72; BP 103/61; PULSE 54; PULSE 60; O2SAT 91; O2SAT 98
--- NOTE | 2023-12-01 04:04 | ED_ITS ---
HPI - Alcohol 2 General: Chief Complaint: Alcohol Stated Complaint: ETOH Time Seen by Provider: 12/01/23 04:05 History of Present Illness: 73-year-old male with a history of alcoh ol use. He presents intoxicated. He has no complaints. Evidently he and his partner at home had a disagreement. Related Data Home Medications Medication Instructions Recorded Confirmed nitroglycerin 0.4 mg sublingual 0.4 mg sublingual Q5M PRN Chest 10/18/20 09/24/23 tablet (Nitrostat) Pain atorvastatin 20 mg tablet 20 mg PO QAM 09/14/22 09/24/23 multivitamin 1 tab PO QAM 02/22/23 09/24/23 Previous Rx's Medication Instructions Recorded foot soak basin #1 ea 12/09/22 park brace. #1 ea 02/18/23 aspirin 81 mg tablet,delayed 81 mg PO QAM 30 days #30 tabs 02/27/23 release (Adult Aspirin Regimen) Allergies Allergy/AdvReac Type Severity Reaction Status Date / Time corn Allergy ADR-Nausea Verified 12/01/23 03:40 [place] Allergy Uknown Verified 12/01/23 03:40 pear Allergy ALGY-Rash Verified 12/01/23 03:40 Penicillins Allergy ALGY-Difficulty Verified 12/01/23 03:40 Breathing PFSH ED 2 PFSH: Medical History Alcoholic intoxication Peripheral vascular disease Alcohol withdrawal Alcoholic ketoacidosis Hypomagnesemia Alcohol abuse Generalized weakness Depression Anxiety Myocardial infarction Alcoholism Pancreatitis Status post chemoradiation Cholelithiasis Dizziness Anal cancer COPD (chronic obstructive pulmonary disease) Hypertension CVA (cerebral vascular accident) DVT (deep venous thrombosis) Acute dehydration Vomiting Surgical History Status post laparoscopic cholecystectomy (11/13/20) Hx of non-cataract eye surgery Hx of cataract extraction History of ankle surgery History of tonsillectomy Status post colonoscopy Family History Other Family history non-contributory Social History Smoking and tobacco/nicotine status: current every day tobacco/nicotine user cigarettes Packs smoked per day: 0.5 Alcohol intake: current Alcohol intake frequency: 3 or more drinks per day Substance/Drug Use: never Household members: family Housing: House Physical Exam 2 Const: COMMON NORMALS: no acute distress GENERAL APPEARANCE: cooperative and frail appearing; not ill appearing HENMT: COMMON NORMALS: normocephalic, atraumatic and Normal external nose present HEAD & SCALP: normocephalic and atraumatic FACE & SINUS: normal facial exam and face symmetric NOSE: Normal external nose present Eye: COMMON NORMALS: Equal, round and reactive pupils present and EOMs intact bilaterally PUPIL: Yes Equal, round and reactive pupils present Neck/C-Spine: GENERAL: Yes trachea midline Chest: CHEST: Yes Symmetrical chest wall rise Resp: COMMON NORMALS: normal respiratory effort, No retractions, No use of accessory muscles and clear to auscultation bilaterally AUSCULTATION: clear to auscultation bilaterally Cardio: COMMON NORMALS: regular rate and regular rhythm RATE: regular rate RHYTHM: regular rhythm GI: COMMON NORMALS: Normal to inspection, nondistended, normoactive bowel sounds present Extremity: COMMON NORMALS: no pedal edema Neuro: HOMER COMA SCALE: document GCS findings [place] coma scale eye opening: Spontaneous [place] coma scale verbal response: Orientated [place] coma scale motor response: Obey commands [place] coma scale total score: 15 S ENSORY EXAM: Yes extremities (intact) Psych: COMMON NORMALS: speech normal SPEECH: Yes normal speech Skin: COMMON NORMALS: no rashes or lesions noted GENERAL SKIN EXAM: no rashes or lesions noted Course 2 Vital Signs: Vital signs: Vital Signs Temperature 98.0 F 12/01/23 03:34 Pulse Rate 57 L 12/01/23 06:00 Respiratory Rate 18 12/01/23 03:34 Blood Pressure 111/62 12/01/23 06:00 Pulse Oximetry 96 12/01/23 06:00 Oxygen Delivery Me thod Room Air 12/01/23 03:34 MDM - Alcohol Medical Decision Making The patient has no complaints. His vital signs are stable. He is not suicidal or homicidal. Urinalysis is negative. Urine drug screen is negative. Hemoglobin is 10. Potassium is 3.2 and is repleted orally. Sodium 147. Creatinine is 0.5. Alcohol level is 272 which is quite impressive given his age. He will be allowed to sober up to some degree here. He will be discharged to the custody of a sober adult when able. Lab Data 12/01/23 05:56 12/01/23 05:56 Laboratory Results WBC 3.50 10^3/uL (3.29-11.43) 12/01/23 05:56 RBC 3.22 10^6/uL (3.85-5.65) L 12/01/23 05:56 Hgb 10.20 g/dL (11.27-16.99) L 12/01/23 05:56 Hct 31.7 % (37-53) L 12/01/23 05:56 MCV 98.4 fl (82-101) 12/01/23 05:56 MCH 31.7 pg (27-33) 12/01/23 05:56 MCHC 32.2 g/dL (30-55) 12/01/23 05:56 RDW 22.2 % (12.1-15.1) H 12/01/23 05:56 Plt Count 236 10^3/cmm (157-399) 12/01/23 05:56 MPV 9.1 fL (7.4-10.4) 12/01/23 05:56 Neut % (Auto) 38.0 % 12/01/23 05:56 Lymph % (Auto) 34.9 % 12/01/23 05:56 Bay % (Auto) 17.7 % 12/01/23 05:56 Eos % (Auto) 6.6 % 12/01/23 05:56 Baso % (Auto) 1.7 % 12/01/23 05:56 Neut # (Auto) 1.33 10^3/uL (1.8-7.7) L 12/01/23 05:56 Lymph # (Auto) 1.2 10^3/uL (0.8-4.8) 12/01/23 05:56 Bay # (Auto) 0.6 10^3/uL (0.2-0.9) 12/01/23 05:56 Eos # (Auto) 0.2 10^3/uL (0.0-0.8) 12/01/23 05:56 Baso # (Auto) 0.1 10^3/uL (0.0-0.1) 12/01/23 05:56 Nucleated RBC % (auto) 0 % 12/01/23 05:56 Nucleated RBCs # 0.0 /100WBC 12/01/23 05:56 Sodium 147 mmol/L (136-145) H 12/01/23 05:56 Potassium 3.2 mmol/L (3.5-5.1) L 12/01/23 05:56 Chloride 108 mmol/L (98-107) H 12/01/23 05:56 Carbon Dioxide 20 mmol/L (22-29) L 12/01/23 05:56 Anion Gap 22.2 (5-19) H 12/01/23 05:56 BUN 10 mg/dL (8-23) 12/01/23 05:56 Creatinine 0.5 mg/dL (0.7-1.2) L 12/01/23 05:56 GFR Calculation Not Reportable 12/01/23 05:56 Glucose 81 mg/dL (65-115) 12/01/23 05:56 Calculated Osmolality 302 mOsm/kg (285-295) H 12/01/23 05:56 Calcium 8.3 mg/dL (8.5-10.5) L 12/01/23 05:56 Total Bilirubin 0.4 mg/dL (0.15-1.2) 12/01/23 05:56 AST 27 U/L (0-40) 12/01/23 05:56 ALT 10 U/L (0-41) 12/01/23 05:56 Alkaline Phosphatase 83 U/L (40-130) 12/01/23 05:56 Total Protein 5.8 g/dL (6.6-8.7) L 12/01/23 05:56 Albumin 3.5 g/dL (3.5-5.2) 12/01/23 05:56 Globulin 2.3 g/dL (1.3-4.6) 12/01/23 05:56 Urine Color Yellow (Yellow) 12/01/23 05:04 Urine Appearance Clear (CLEAR) 12/01/23 05:04 Urine pH 5.5 (5-7) 12/01/23 05:04 Ur Specific [place] 1.009 (1.005-1.030) 12/01/23 05:04 Urine Protein Negative (Negative) 12/01/23 05:04 Urine Glucose (UA) Negative (Normal) 12/01/23 05:04 Urine Ketones Negative (Negative) 12/01/23 05:04 Urine Blood Negative (Negative) 12/01/23 05:04 Urine Nitrate Negative (Negative) 12/01/23 05:04 Urine Bilirubin Negative (Negative) 12/01/23 05:04 Urine Urobilinogen 1.0 mg/dL (Negative) 12/01/23 05:04 Ur Leukocyte Esterase Negative (Negative) 12/01/23 05:04 Urine RBC 0-2 /hpf (0-2) 12/01/23 05:04 Urine WBC 0-5 /hpf (0-5) 12/01/23 05:04 Ur Squamous Epith Cells 0-5 /hpf (0-5) 12/01/23 05:04 Amorphous Sediment Not Reportable 12/01/23 05:04 Urine Bacteria None seen /hpf (NONE) 12/01/23 05:04 Hyaline Casts 0.40 /lpf 12/01/23 05:04 Salicylates 0.6 mg/dL (3-10) L 12/01/23 05:56 Urine Opiates Screen Negative ng/mL (Negative) 12/01/23 05:04 Acetaminophen < 5.0 ug/mL (10-30) L 12/01/23 05:56 Ur Barbiturates Screen Negative ng/mL (Negative) 12/01/23 05:04 Ur Phencyclidine Scrn Negative ng/mL (Negative) 12/01/23 05:04 Ur Amphetamines Screen Negative ng/mL (Negative) 12/01/23 05:04 U Benzodiazepines Scrn Negative ng/mL (Negative) 12/01/23 05:04 Urine Cocaine Screen Negative ng/mL (Negative) 12/01/23 05:04 U Marijuana (THC) Screen Negative ng/mL (Negative) 12/01/23 05:04 Ethyl Alcohol 272 mg/dL (0-10) H 12/01/23 05:56 No radiology studies performed this visit Discharge Plan Discharge Patient Disposition: Home Clinical Impression: Alcoholic intoxication Condition: Stable Prescriptions: No Action nitroglycerin [Nitrostat] 0.4 mg tablet, sublingual 0.4 mg sublingual Q5M PRN (Reason: Chest Pain) Rx Instructions: do not exceed 3 doses per episode (DME) foot soak basin See Rx Instructions .Route .MEDSUPPLY Qty: 1 0RF Rx Instructions: As directed to HOME (DME) xavier klein. See Rx Instructions .Route .MEDSUPPLY Qty: 1 0RF Rx Instructions: As directed multivitamin Tablet 1 tab PO QAM aspirin [Adult Aspirin Regimen] 81 mg tablet,delayed release (DR/EC) 81 mg PO QAM 30 Days Qty: 30 0RF atorvastatin 20 mg tablet 20 mg PO QAM Discharge Orders: Discharge ED (Routine); Ordered 12/01/23 Ordered By: Joey Leon Referrals: Medardo Bowers MD [Primary Care Provider] - 4-7 days Patient Instructions: Alcohol Intoxication (ED), Opioid Safety, Pain Management Activity Restrictions/Additional Instructions: Abstain from alcohol. Return for any problems. Coding Level of Care Code ED Autocad for Katrin Mike
[2023-12-01 05:09] LABS: Charge for UA Resulting for Rev
[2023-12-01 05:12] LABS: Bilirubin Urine Negative (Negative); Blood Urine Negative (Negative); Glucose Urine UA Negative (Normal); Ketones Urine Negative (Negative); Leukocyte Esterase Urine Negative (Negative); Nitrate Urine Negative (Negative); Protein Urine Negative (Negative); Specific Gravity, Urine 1.009 (1.005-1.030); Urine Appearance Clear (CLEAR); Urine Color Yellow (Yellow); pH Urine 5.5 (5-7)
[2023-12-01 05:17] LABS: Bacteria Urine None Seen /hpf; RBC Urine 0-2 /hpf (0-2); Squamous Epithelial Cell Urine 0-5 /hpf (0-5); WBC Urine 0-5 /hpf (0-5)
[2023-12-01 05:19] LABS: Amphetamines Screen Urine Negative (Negative); Barbiturates Screen Urine Negative (Negative); Benzodiazepines Screen Urine Negative (Negative); Cocaine Screen Urine Negative (Negative); Opiate Screen Urine Negative (Negative); PCP Screen Urine Negative (Negative); THC Screen Urine Negative (Negative)
[2023-12-01 06:00] VITALS: BP 111/62; PULSE 57; O2SAT 96
[2023-12-01 06:12] LABS: Basophils # 0.1 10^3/uL (0.0-0.1); Basophils % 1.7 %; Eosinophils # 0.2 10^3/uL (0.0-0.8); Eosinophils % 6.6 %; Hematocrit 31.7 % (37-53); Lymphocytes # 1.2 10^3/uL (0.8-4.8); Lymphocytes % 34.9 %; Mean Corpuscular HGB Conc 32.2 g/dL (30-55); Mean Corpuscular Hemoglobin 31.7 pg (27-33); Mean Corpuscular Volume 98.4 fl (82-101); Mean Platelet Volume 9.1 fL (7.4-10.4); Monocytes # 0.6 10^3/uL (0.2-0.9); Monocytes % 17.7 %; Neutrophils # 1.33 10^3/uL (1.8-7.7); Nucleated Red Blood Cells % 0 %; Platelet Count 236 10^3/cmm (157-399); Red Blood Count 3.22 10^6/uL (3.85-5.65); Red Cell Distribution Width 22.2 % (12.1-15.1)
[2023-12-01 06:27] LABS: Alanine Aminotransferase 10 U/L (0-41); Albumin Level 3.5 g/dL (3.5-5.2); Alcohol Level 272 mg/dL (0-10); Alkaline Phosphatase 83 U/L (40-130); Anion Gap 22.2 (5-19); Aspartate Amino Transferase 27 U/L (0-40); Blood Urea Nitrogen 10 mg/dL (8-23); Calcium 8.3 mg/dL (8.5-10.5); Carbon Dioxide 20 mmol/L (22-29); Chloride 108 mmol/L (98-107); Creatinine Clr Calc Pharmacy 72.2913; Globulin 2.3 g/dL (1.3-4.6); Glucose 81 mg/dL (65-115); Osmolality Calculated 302 mOsm/kg (285-295); Potassium 3.2 mmol/L (3.5-5.1); Salicylate 0.6 mg/dL (3-10); Sodium 147 mmol/L (136-145); Total Bilirubin 0.4 mg/dL (0.15-1.2); Total Protein 5.8 g/dL (6.6-8.7)
[2023-12-01 06:31] LABS: Acetaminophen < 5.0 ug/mL (10-30)
[2023-12-01] MEDS: potassium chloride oral liq 20 mEq/15 mL UDC PO (06:40)
[2023-12-01 11:33] VITALS: BP 120/74; PULSE 77; RESP 16; O2SAT 98
== END 2023-12-01 11:35 | disposition home or self-care (01) ==
PROVIDERS: Emergency Provider Emergency Medicine; PCP Family Medicine
DX: F10.129 Alcohol abuse with intoxication, unspecified (principal); Y90.8 Blood alcohol level of 240 mg/100 ml or more; F17.210 Nicotine dependence, cigarettes, uncomplicated; I25.2 Old myocardial infarction; Z85.048 Personal history of other malignant neoplasm of rectum, rectosigmoid junction, and anus; J44.9 Chronic obstructive pulmonary disease, unspecified; I10 Essential (primary) hypertension; Z86.73 Personal history of transient ischemic attack (TIA), and cerebral infarction without residual deficits
CPT/HCPCS: 80053; 80306; 80307; 81003; 81015; 85025; 99283

== ENCOUNTER 2023-12-07 02:59 | Emergency (ER) | payer MEDICARE, MEDICAID, SELFPAY ==
[2023-12-07 03:02] VITALS: BP 134/71; PULSE 56; RESP 16; TEMP 36.6; O2SAT 98; BMI 18.3
--- NOTE | 2023-12-07 03:29 | W.ED.FALL ---
HPI - Fall General: Chief Complaint: Fall Stated Complaint: FALL Time Seen by Provider: 12/07/23 03:15 History of Present Illness: 73-year-old male well-known to the emergency department service. He frequently uses alcohol. He was lying in the living room floor at home, and his roommate evidently called 911 worried that he had fallen. The patient himself states that he did not fall. He did not pass out. His head. He was simply laying on the floor, because he has back pain, and sometimes it feels improved after lying in the floor. He denies any injury to himself this morning. He does state that he gets dizzy easily, and usually walks with a walker because of this. Related Data Home Medications Medication Instructions Recorded Confirmed nitroglycerin 0.4 mg sublingual 0.4 mg sublingual Q5M PRN Chest 10/18/20 09/24/23 tablet (Nitrostat) Pain atorvastatin 20 mg tablet 20 mg PO QAM 09/14/22 09/24/23 multivitamin 1 tab PO QAM 02/22/23 09/24/23 Previous Rx's Medication Instructions Recorded foot soak basin #1 ea 12/09/22 park brace. #1 ea 02/18/23 aspirin 81 mg tablet,delayed 81 mg PO QAM 30 days #30 tabs 02/27/23 release (Adult Aspirin Regimen) Allergies Allergy/AdvReac Type Severity Reaction Status Date / Time corn Allergy ADR-Nausea Verified 12/01/23 03:40 [place] Allergy Uknown Verified 12/01/23 03:40 pear Allergy ALGY-Rash Verified 12/01/23 03:40 Penicillins Allergy ALGY-Difficulty Verified 12/01/23 03:40 Breathing PFS ED PFSH: Medical History Alcoholic intoxication Peripheral vascular disease Alcohol withdrawal Alcoholic ketoacidosis Hypomagnesemia Alcohol abuse Generalized weakness Depression Anxiety Myocardial infarction Alcoholism Pancreatitis Status post chemoradiation Cholelithiasis Dizziness Anal cancer COPD (chronic obstructive pulmonary disease) Hypertension CVA (cerebral vascular accident) DVT (deep venous thrombosis) Acute dehydration Vomiting Surgical History Status post laparoscopic cholecystectomy (11/13/20) Hx of non-cataract eye surgery Hx of cataract extraction History of ankle surgery History of tonsillectomy Status post colonoscopy Family History Other Family history non-contributory Social History Smoking and tobacco/nicotine status: current every day tobacco/nicotine user cigarettes Packs smoked per day: 0.5 Alcohol intake: current Alcohol intake frequency: 3 or more drinks per day Substance/Drug Use: never Household members: family Housing: House Physical Exam Const: COMMON NORMALS: no acute distress GENERAL APPEARANCE: cooperative and frail appearing; not ill appearing ORIENTATION/CONSCIOUSNESS: Yes awake, Yes oriented to person and Yes oriented to place; not confused HENMT: COMMON NORMALS: normocephalic, atraumatic and Normal external nose present HEAD & SCALP: normocephalic and atraumatic FACE & SINUS: normal facial exam NOSE: Normal external nose present Eye: COMMON NORMALS: Equal, round and reactive pupils present and EOMs intact bilaterally PUPIL: Yes Equal, round and reactive pupils present Neck/C-Spine: COMMON NORMALS: full ROM GENERAL: Yes trachea midline and No tender Chest: CHEST: No tenderness Resp: COMMON NORMALS: normal respiratory effort, No use of accessory muscles and clear to auscultation bilaterally AUSCULTATION: clear to auscultation bilaterally Cardio: COMMON NORMALS: regular rate and regular rhythm RATE: regular rate RHYTHM: regular rhythm GI: COMMON NORMALS: Soft to palpation and non-tender PALPATION: Yes Soft to palpation and No Tenderness to palpation present (GI) Extremity: NARRATIVE EXTREMITY EXAM: Scattered upper extremity abrasions, and small areas of ecchymosis, varying areas. Neuro: SENSORIUM/ORIENTATION: Yes oriented to person and Yes oriented to place Course Vital Signs: Vital signs: Vital Signs Temperature 97.8 F 12/07/23 03:02 Pulse Rate 56 L 12/07/23 03:02 Respiratory Rate 16 12/07/23 03:02 Blood Pressure 134/71 12/07/23 03:02 Pulse Oximetry 98 12/07/23 03:02 Oxygen Delivery Me thod Room Air 12/07/23 03:02 MDM - Fall Medical Decision Making 73-year-old intoxicated male. He denies any injury. He states he laid down on the floor because it helps his back. He denies head injury. He is mildly intoxicated, but completely coherent. No sign of significant head trauma or injury. Vitals are stable. He is discharged to return for any new or concerning symptoms. No radiology studies performed this visit Discharge Plan Discharge Patient Disposition: Home Clinical Impression: Physical deconditioning, Protein calorie malnutrition Condition: Stable Prescriptions: No Action nitroglycerin [Nitrostat] 0.4 mg tablet, sublingual 0.4 mg sublingual Q5M PRN (Reason: Chest Pain) Rx Instructions: do not exceed 3 doses per episode (DME) foot soak basin See Rx Instructions .Route .MEDSUPPLY Qty: 1 0RF Rx Instructions: As directed to HOME (DME) xavier klein. See Rx Instructions .Route .MEDSUPPLY Qty: 1 0RF Rx Instructions: As directed multivitamin Tablet 1 tab PO QAM aspirin [Adult Aspirin Regimen] 81 mg tablet,delayed release (DR/EC) 81 mg PO QAM 30 Days Qty: 30 0RF atorvastatin 20 mg tablet 20 mg PO QAM Discharge Orders: Discharge ED (Routine); Ordered 12/07/23 Ordered By: Joey Leon Referrals: Medardo Bowers MD [Primary Care Provider] - 1-3 days Patient Instructions: Alcohol Intoxication (ED), Opioid Safety, Pain Management Coding Level of Care Code ED [employer] Pricer for Katrin Mike
[2023-12-07 05:49] VITALS: BP 134/79; PULSE 49; RESP 16; O2SAT 94
== END 2023-12-07 05:50 | disposition home or self-care (01) ==
PROVIDERS: Emergency Provider Emergency Medicine; PCP Family Medicine
DX: R53.81 Other malaise (principal); E46 Unspecified protein-calorie malnutrition; Z68.1 Body mass index [BMI] 19.9 or less, adult; F10.129 Alcohol abuse with intoxication, unspecified; Y90.9 Presence of alcohol in blood, level not specified; S40.812A Abrasion of left upper arm, initial encounter; S40.811A Abrasion of right upper arm, initial encounter; X58.XXXA Exposure to other specified factors, initial encounter; I25.2 Old myocardial infarction; Z85.048 Personal history of other malignant neoplasm of rectum, rectosigmoid junction, and anus; J44.9 Chronic obstructive pulmonary disease, unspecified; I10 Essential (primary) hypertension; Z86.73 Personal history of transient ischemic attack (TIA), and cerebral infarction without residual deficits; F17.210 Nicotine dependence, cigarettes, uncomplicated; Z92.21 Personal history of antineoplastic chemotherapy
CPT/HCPCS: 99283

== ENCOUNTER 2023-12-12 02:10 | Emergency (ER) | payer MEDICARE, MEDICAID, SELFPAY ==
[2023-12-12 02:10] VITALS: BP 127/68; PULSE 59; RESP 18; TEMP 36.4; O2SAT 97; BMI 18.3
--- NOTE | 2023-12-12 02:22 | W.ED.FALL ---
HPI - Fall General: Chief Complaint: Fall Stated Complaint: Fall Time Seen by Provider: 12/12/23 02:12 History of Present Illness: 73-year-old man with a history of DVT, CVA, COPD, alcohol abuse, pancreatitis who presents emergency room by ambulance after he had a fall today. He has no pain complaints. He did not hit his head. No loss of consciousness. He does want to come the emergency room to be checked out. Related Data Home Medications Medication Instructions Recorded Confirmed nitroglycerin 0.4 mg sublingual 0.4 mg sublingual Q5M PRN Chest 10/18/20 09/24/23 tablet (Nitrostat) Pain atorvastatin 20 mg tablet 20 mg PO QAM 09/14/22 09/24/23 multivitamin 1 tab PO QAM 02/22/23 09/24/23 Previous Rx's Medication Instructions Recorded foot soak basin #1 ea 12/09/22 park brace. #1 ea 02/18/23 aspirin 81 mg tablet,delayed 81 mg PO QAM 30 days #30 tabs 02/27/23 release (Adult Aspirin Regimen) Allergies Allergy/AdvReac Type Severity Reaction Status Date / Time corn Allergy ADR-Nausea Verified 12/01/23 03:40 [place] Allergy Uknown Verified 12/01/23 03:40 pear Allergy ALGY-Rash Verified 12/01/23 03:40 Penicillins Allergy ALGY-Difficulty Verified 12/01/23 03:40 Breathing Review of Systems Narrative: Constitutional symptoms: Negative except as documented in HPI. Skin symptoms: Negative except as documented in HPI. Eye symptoms: Negative except as documented in HPI. ENMT symptoms: Negative except as documented in HPI. Respiratory symptoms: Negative except as documented in HPI. Cardiovascular symptoms: Negative except as documented in HPI. Gastrointestinal symptoms: Negative except as documented in HPI. Genitourinary symptoms: Negative except as documented in HPI. Musculoskeletal symptoms: Negative except as documented in HPI. Neurologic symptoms: Negative except as documented in HPI. Psychiatric symptoms: Negative except as documented in HPI. Endocrine symptoms: Negative except as documented in HPI. [facility] ED PFSH: Medical History Alcoholic intoxication Peripheral vascular disease Alcohol withdrawal Alcoholic ketoacidosis Hypomagnesemia Alcohol abuse Generalized weakness Depression Anxiety Myocardial infarction Alcoholism Pancreatitis Status post chemoradiation Cholelithiasis Dizziness Anal cancer COPD (chronic obstructive pulmonary disease) Hypertension CVA (cerebral vascular accident) DVT (deep venous thrombosis) Acute dehydration Vomiting Surgical History Status post laparoscopic cholecystectomy (11/13/20) Hx of non-cataract eye surgery Hx of cataract extraction History of ankle surgery History of tonsillectomy Status post colonoscopy Family History Other Family history non-contributory Social History Smoking and tobacco/nicotine status: current every day tobacco/nicotine user cigarettes Packs smoked per day: 0.5 Alcohol intake: current Alcohol intake frequency: 3 or more drinks per day Substance/Drug Use: never Household members: family Housing: House Physical Exam Narrative: EXAM NARRATIVE: General: Alert, no acute distress. Skin: Warm, dry. Head: Normocephalic, atraumatic. Neck: Supple, trachea midline. Eye: Extraocular movements are intact. Ears, nose, mouth and throat: mucosa moist. Cardiovascular: Regular, Normal peripheral perfusion. Respiratory: Lungs are clear to auscultation, respirations are non-labored, breath sounds are equal, Symmetrical chest wall expansion. Gastrointestinal: Soft, Nontender, Non distended Musculoskeletal: Normal ROM, no deformity. Neurological: Alert and oriented, No focal neurological deficit observed. Psychiatric: Cooperative, patient appears intoxicated Course Vital Signs: Vital signs: Vital Signs Temperature 97.5 F L 12/12/23 02:10 Pulse Rate 59 L 12/12/23 02:10 Respiratory Rate 18 12/12/23 02:10 Blood Pressure 127/68 12/12/23 02:10 Pulse Oximetry 97 12/12/23 02:10 Oxygen Delivery Me thod Room Air 12/12/23 02:10 MDM - Fall Medical Decision Making Assessment and plan: Alcohol abuse Alcohol intoxication Falls ? Patient has no injuries. Vitals are normal. Chronic alcoholism. - Discharged home - Discussed plan with patient. Answered any questions. - Evaluation and treatment of this problem were appropriate in the emergency setting. No radiology studies performed this visit Discharge Plan Discharge Patient Disposition: Home Clinical Impression: Alcohol abuse, Alcohol intoxication, Alcohol dependence Condition: Stable Prescriptions: No Action nitroglycerin [Nitrostat] 0.4 mg tablet, sublingual 0.4 mg sublingual Q5M PRN (Reason: Chest Pain) Rx Instructions: do not exceed 3 doses per episode (DME) erick soak basin See Rx Instructions .Route .MEDSUPPLY Qty: 1 0RF Rx Instructions: As directed to HOME (DME) xavier klein. See Rx Instructions .Route .MEDSUPPLY Qty: 1 0RF Rx Instructions: As directed multivitamin Tablet 1 tab PO QAM aspirin [Adult Aspirin Regimen] 81 mg tablet,delayed release (DR/EC) 81 mg PO QAM 30 Days Qty: 30 0RF atorvastatin 20 mg tablet 20 mg PO QAM Discharge Orders: Discharge ED (Routine); Ordered 12/12/23 Ordered By: Cyn Giles Referrals: Medardo Bowers MD [Primary Care Provider] - Patient Instructions: Abuse of Alcohol (ED) Activity Restrictions/Additional Instructions: Thank you for choosing [facility] for your healthcare needs today. Please realize this is an emergency room and that we are providing you with a medical screening exam and this may not be complete and all inclusive of all the testing and or work up that you may need to determine your ailment or severity of your illness. You have been screened and evaluated and felt safe for discharge. Health conditions do change or evolve sometimes and as such it is important that you follow up with your Primary Doctor to be re checked, 3-5 days is a general good time frame for follow up. You are always welcome to return to the ED for re assessment if your symptoms are worsening or you have new concerns Coding Level of Care Code ED Wet Primer Powder Blender for Katrin Mike
[2023-12-12 02:38] VITALS: BP 121/71; PULSE 55; RESP 16; O2SAT 98
== END 2023-12-12 02:41 | disposition home or self-care (01) ==
PROVIDERS: Emergency Provider Emergency Medicine; PCP Family Medicine
DX: F10.229 Alcohol dependence with intoxication, unspecified (principal); Y90.9 Presence of alcohol in blood, level not specified; F17.210 Nicotine dependence, cigarettes, uncomplicated; I25.2 Old myocardial infarction; Z85.048 Personal history of other malignant neoplasm of rectum, rectosigmoid junction, and anus; J44.9 Chronic obstructive pulmonary disease, unspecified; I10 Essential (primary) hypertension; Z86.73 Personal history of transient ischemic attack (TIA), and cerebral infarction without residual deficits
CPT/HCPCS: 99283

== ENCOUNTER 2024-01-01 07:13 | Outpatient (CLI) | payer MEDICARE, MEDICAID, SELFPAY ==
--- NOTE | 2024-01-01 07:21 | CT_ITS ---
WS: [id number] CT chest wo con [id number] HISTORY: ABNORMAL CHEST XRAY TECHNIQUE: Axial imaging performed through the thorax. Coronal and sagittal reformats are submitted. All CT scans at [facility] use at least one of these dose optimization techniques: automated exposure control; mA and/or kV adjustment per patient size (includes targeted exams where dose is mat ched to clinical indication); or iterative reconstruction. CONTRAST: None DLP: 280.72 mGy.cm COMPARISON: Chest radiograph 10/05/2023 Lungs and central airway: Hyperinflated lungs with centrilobular emphysema. No pulmonary mass. Linear areas of increased density bilaterally in the lower lung lomeli consistent with scarring or chronic atelectasis. There is a mild groundglass attenuation. Mild bronchiectasis greatest medial LEFT lung b ase. Pleura: Normal. No pleural effusion. Heart and pericardium: Normal size heart with no pericardial effusion. Mediastinum and kiko: No mediastinum or hilar adenopathy. Vessels: Mild ectasia and atherosclerosis aorta. Pulmonary artery is slightly dilated. Chest wall and lower neck: No soft tissue masses. Upper abdomen: Prior cholecystectomy. 2.8 cm LEFT renal cyst. There is an additional low-attenuation mass from the superior pole which is smaller and more difficult to characterize. Osseous structures: Osteopenia. Marked increase in thoracic kyphosis. Multiple anterior osteoporotic compression fractures throughout the thoracic spine and upper lumbar spine. No retropulsion of the ve rtebral bodies. CT/CT chest wo con [id number] IMPRESSION: 1. No pulmonary mass or pneumonia. 2. Thin linear areas of scarring or atelectasis at the lung bases. 3. No adenopathy identified on this unenhanced exam. 4. Mildly ectatic thoracic aorta. 5. Prior cholecystectomy.
== END 2024-01-01 07:14 | disposition home or self-care (01) ==
LOC: RAD 07:14
PROVIDERS: PCP Family Medicine; Visit Provider Family Medicine
DX: R93.89 Abnormal findings on diagnostic imaging of other specified body structures (principal); J43.2 Centrilobular emphysema; J98.4 Other disorders of lung; I77.89 Other specified disorders of arteries and arterioles; Z98.890 Other specified postprocedural states; N28.1 Cyst of kidney, acquired; M85.80 Other specified disorders of bone density and structure, unspecified site; M40.204 Unspecified kyphosis, thoracic region; M80.88XA Other osteoporosis with current pathological fracture, vertebra(e), initial encounter for fracture
CPT/HCPCS: 71250

== ENCOUNTER 2024-01-02 04:51 | Emergency (ER) | payer MEDICARE, MEDICAID, SELFPAY ==
[2024-01-02 04:53] VITALS: BP 110/73; PULSE 70; RESP 21; TEMP 36.6; O2SAT 95; BMI 19.0
--- NOTE | 2024-01-02 05:01 | ED_ITS ---
Documented by User: Jackson Tamayo DO 01/02/24 05:03 HPI - General Adult 2 General: Chief complaint: Fall Stated complaint: Fall, ETOH Time Seen by Provider: 01/02/24 04:57 History of Present Illness: Who presents to the ER by EMS with complaints of fall and weakness not been able get up out of the floor. Patient does admit to drinking tonight he is unsure how many drinks he has had he thinks he may have had 2. Patient has no other complaints at this time. Patient denies all pain did not hit his head blackout lose consciousness etc. Per EMS patient did get thiamine and about 300 with milliliters of normal saline en route Related Data Home Medications Medication Instructions Recorded Confirmed nitroglycerin 0.4 mg sublingual 0.4 mg sublingual Q5M PRN Chest 10/18/20 01/02/24 tablet (Nitrostat) Pain atorvastatin 20 mg tablet 20 mg PO QAM 09/14/22 01/02/24 multivitamin 1 tab PO QAM 02/22/23 01/02/24 Previous Rx's Medication Instructions Recorded foot soak basin #1 ea 12/09/22 park brace. #1 ea 02/18/23 aspirin 81 mg tablet,delayed 81 mg PO QAM 30 days #30 tabs 02/27/23 release (Adult Aspirin Regimen) Allergies Allergy/AdvReac Type Severity Reaction Status Date / Time corn Allergy ADR-Nausea Verified 12/01/23 03:40 [place] Allergy Uknown Verified 12/01/23 03:40 [place] Allergy ALGY-Rash Verified 12/01/23 03:40 Penicillins Allergy ALGY-Difficulty Verified 12/01/23 03:40 Breathing Review of Systems 2 General: Reports: 10 or more systems reviewed and unremarkable except in HPI and below PFSH ED 2 PFSH: Medical History Alcoholic intoxication Peripheral vascular disease Alcohol withdrawal Alcoholic ketoacidosis Hypomagnesemia Alcohol abuse Generalized weakness Depression Anxiety Myocardial infarction Alcoholism Pancreatitis Status post chemoradiation Cholelithiasis Dizziness Anal cancer COPD (chronic obstructive pulmonary disease) Hypertension CVA (cerebral vascular accident) DVT (deep venous thrombosis) Acute dehydration Vomiting Surgical History Status post laparoscopic cholecystectomy (11/13/20) Hx of non-cataract eye surgery Hx of cataract extraction History of ankle surgery History of tonsillectomy Status post colonoscopy Family History Other Family history non-contributory Social History Smoking and tobacco/nicotine status: current every day tobacco/nicotine user cigarettes Packs smoked per day: 0.5 Alcohol intake: current Alcohol intake frequency: 3 or more drinks per day Substance/Drug Use: never Household members: family Housing: House Physical Exam 2 Const: COMMON NORMALS: no acute distress, average body habitus, patient oriented x3, no limitations, healthy appearing, alert and well nourished HENMT: COMMON NORMALS: normocephalic, atraumatic, hearing grossly normal bilaterally, external ears normal, Normal external nose present and moist oral mucous membranes HEAD & SCALP: normocephalic and atraumatic NOSE: Normal external nose present EXTERNAL EAR: Yes external ears normal Neck/C-Spine: COMMON NORMALS: full ROM, no lymphadenopathy, supple, no meningeal signs, no JVD and Thyroid normal THYROID: Thyroid normal Chest: COMMONS NORMALS: normal inspection of the chest and normal palpation of entire chest wall Resp: COMMON NORMALS: normal respiratory effort, No retractions, No use of accessory muscles and clear to auscultation bilaterally AUSCULTATION: clear to auscultation bilaterally Cardio: COMMON NORMALS: no JVD, regular rate, regular rhythm, S1 normal heart sound present, S2 normal heart sound present, No gallops present (Cardio), No clicks present (Cardio), No murmurs present (Cardio) and No rub (Cardio) R ATE: regular rate RHYTHM: regular rhythm HEART SOUNDS: S1 normal heart sound present and S2 normal heart sound present GI: COMMON NORMALS: Normal to inspection, nondistended, normoactive bowel sounds present, Soft to palpation, No hepatosplenomegaly present and no masses; negative for non-tender PALPATION: Yes Soft to palpation and Yes No hepatosplenomegaly present Neuro: COMMON NORMALS: patient oriented x3 SENSORIUM/ORIENTATION: Yes alert MENINGEAL SIGNS: Yes no meningeal signs Course 2 Vital Signs: Vital signs: Vital Signs Temperature 98 F 01/02/24 04:53 Pulse Rate 50 L 01/02/24 08:08 Respiratory Rate 21 H 01/02/24 04:53 Blood Pressure 117/67 01/02/24 08:08 Pulse Oximetry 100 01/02/24 08:08 Oxygen Delivery Me thod Room Air 01/02/24 06:13 [facility] - General Adult Medical Records I reviewed the patient's medical records. Lab Data I reviewed the patient's lab results. 01/02/24 04:50 01/02/24 04:50 Laboratory Results WBC 7.07 10^3/uL (3.29-11.43) 01/02/24 04:50 RBC 3.63 10^6/uL (3.85-5.65) L 01/02/24 04:50 Hgb 11.50 g/dL (11.27-16.99) 01/02/24 04:50 Hct 35.4 % (37-53) L 01/02/24 04:50 MCV 97.5 fl (82-101) 01/02/24 04:50 MCH 31.7 pg (27-33) 01/02/24 04:50 MCHC 32.5 g/dL (30-55) 01/02/24 04:50 RDW 18.4 % (12.1-15.1) H 01/02/24 04:50 Plt Count 252 10^3/cmm (157-399) 01/02/24 04:50 MPV 9.8 fL (7.4-10.4) 01/02/24 04:50 Neut % (Auto) 47.2 % 01/02/24 04:50 Lymph % (Auto) 34.5 % 01/02/24 04:50 [place] % (Auto) 13.7 % 01/02/24 04:50 Eos % (Auto) 3.0 % 01/02/24 04:50 Baso % (Auto) 1.3 % 01/02/24 04:50 Neut # (Auto) 3.34 10^3/uL (1.8-7.7) 01/02/24 04:50 Lymph # (Auto) 2.4 10^3/uL (0.8-4.8) 01/02/24 04:50 [place] # (Auto) 1.0 10^3/uL (0.2-0.9) H 01/02/24 04:50 Eos # (Auto) 0.2 10^3/uL (0.0-0.8) 01/02/24 04:50 Baso # (Auto) 0.1 10^3/uL (0.0-0.1) 01/02/24 04:50 Nucleated RBC % (auto) 0 % 01/02/24 04:50 Nucleated RBCs # 0.0 /100WBC 01/02/24 04:50 Sodium 143 mmol/L (136-145) 01/02/24 04:50 Potassium 3.1 mmol/L (3.5-5.1) L 01/02/24 04:50 Chloride 103 mmol/L (98-107) 01/02/24 04:50 Carbon Dioxide 23 mmol/L (22-29) 01/02/24 04:50 Anion Gap 20.1 (5-19) H 01/02/24 04:50 BUN 11 mg/dL (8-23) 01/02/24 04:50 Creatinine 0.6 mg/dL (0.7-1.2) L 01/02/24 04:50 GFR Calculation Not Reportable 01/02/24 04:50 Glucose 88 mg/dL (65-115) 01/02/24 04:50 Calculated Osmolality 295 mOsm/kg (285-295) 01/02/24 04:50 Calcium 8.5 mg/dL (8.5-10.5) 01/02/24 04:50 Magnesium 1.3 mg/dL (1.7-2.3) L 01/02/24 04:50 Total Bilirubin 0.3 mg/dL (0.15-1.2) 01/02/24 04:50 AST 20 U/L (0-40) 01/02/24 04:50 ALT 6 U/L (0-41) 01/02/24 04:50 Alkaline Phosphatase 122 U/L (40-130) 01/02/24 04:50 Total Protein 6.5 g/dL (6.6-8.7) L 01/02/24 04:50 Albumin 3.7 g/dL (3.5-5.2) 01/02/24 04:50 Globulin 2.8 g/dL (1.3-4.6) 01/02/24 04:50 Ethyl Alcohol 353 mg/dL (0-10) H* 01/02/24 04:50 No radiology studies performed this visit Discharge Plan Discharge Patient Disposition: Home Clinical Impression: Fall, Acute alcoholic intoxication Condition: Stable Prescriptions: No Action nitroglycerin [Nitrostat] 0.4 mg tablet, sublingual 0.4 mg sublingual Q5M PRN (Reason: Chest Pain) Rx Instructions: do not exceed 3 doses per episode (DME) foot soak basin See Rx Instructions .Route .MEDSUPPLY Qty: 1 0RF Rx Instructions: As directed to HOME (DME) xavier klein. See Rx Instructions .Route .MEDSUPPLY Qty: 1 0RF Rx Instructions: As directed multivitamin Tablet 1 tab PO QAM aspirin [Adult Aspirin Regimen] 81 mg tablet,delayed release (DR/EC) 81 mg PO QAM 30 Days Qty: 30 0RF atorvastatin 20 mg tablet 20 mg PO QAM Discharge Orders: Discharge ED (Routine); Ordered 01/02/24 Ordered By: Emmanuel Murray Referrals: Medardo Bowers MD [Primary Care Provider] - Discharge Diet: Usual diet Discharge Activity: Increase activity as tolerated Patient Instructions: Abuse of Alcohol (ED), Opioid Safety, Pain Management Activity Restrictions/Additional Instructions: Thank you for choosing [facility] for your healthcare needs today. It is very important that you follow up as instructed or that you return to the Emergency Department should you have concerns or if your condition changes or worsens in any way. Avoid the use of alcohol Sign Out Sign Out Data: Patient Sign Out occurred on 01/02/24 at 06:13. Patient's care was discussed, and care was transferred from Jackson Tamayo DO to Emmanuel Murray DO. Coding Level of Care Code ED Metal Inspector for Chg Fwd Documented by User: Emmanuel Murray DO 01/02/24 10:34 HPI - General Adult 2 General: Chief complaint: Fall Stated complaint: Fall, ETOH Time Seen by Provider: 01/02/24 04:57 Related Data Home Medications Medication Instructions Recorded Confirmed nitroglycerin 0.4 mg sublingual 0.4 mg sublingual Q5M PRN Chest 10/18/20 01/02/24 tablet (Nitrostat) Pain atorvastatin 20 mg tablet 20 mg PO QAM 09/14/22 01/02/24 multivitamin 1 tab PO QAM 02/22/23 01/02/24 Previous Rx's Medication Instructions Recorded foot soak basin #1 ea 12/09/22 park brace. #1 ea 02/18/23 aspirin 81 mg tablet,delayed 81 mg PO QAM 30 days #30 tabs 02/27/23 release (Adult Aspirin Regimen) Allergies Allergy/AdvReac Type Severity Reaction Status Date / Time [place] Allergy ADR-Nausea Verified 12/01/23 03:40 [place] Allergy Uknown Verified 12/01/23 03:40 [place] Allergy ALGY-Rash Verified 12/01/23 03:40 Penicillins Allergy ALGY-Difficulty Verified 12/01/23 03:40 Breathing PFSH ED 2 PFSH: Medical History Alcoholic intoxication Peripheral vascular disease Alcohol withdrawal Alcoholic ketoacidosis Hypomagnesemia Alcohol abuse Generalized weakness Depression Anxiety Myocardial infarction Alcoholism Pancreatitis Status post chemoradiation Cholelithiasis Dizziness Anal cancer COPD (chronic obstructive pulmonary disease) Hypertension CVA (cerebral vascular accident) DVT (deep venous thrombosis) Acute dehydration Vomiting Surgical History Status post laparoscopic cholecystectomy (11/13/20) Hx of non-cataract eye surgery Hx of cataract extraction History of ankle surgery History of tonsillectomy Status post colonoscopy Family History Other Family history non-contributory Social History Smoking and tobacco/nicotine status: current every day tobacco/nicotine user cigarettes Packs smoked per day: 0.5 Alcohol intake: current Alcohol intake frequency: 3 or more drinks per day Substance/Drug Use: never Household members: family Housing: House Course 2 Vital Signs: Vital signs: Vital Signs Temperature 98 F 01/02/24 04:53 Pulse Rate 50 L 01/02/24 08:08 Respiratory Rate 21 H 01/02/24 04:53 Blood Pressure 117/67 01/02/24 08:08 Pulse Oximetry 100 01/02/24 08:08 Oxygen Delivery Me thod Room Air 01/02/24 06:13 MDM - General Adult Medical Decision Making Care assumed at change of shift patient is feeling members here to get him blood alcohol is markedly elevated he is able to stand and walk he is awake and alert otherwise. Will discharge patient home in the care of his family member. Encourage abstinence from alcohol Lab Data 01/02/24 04:50 01/02/24 04:50 Laboratory Results WBC 7.07 10^3/uL (3.29-11.43) 01/02/24 04:50 RBC 3.63 10^6/uL (3.85-5.65) L 01/02/24 04:50 Hgb 11.50 g/dL (11.27-16.99) 01/02/24 04:50 Hct 35.4 % (37-53) L 01/02/24 04:50 MCV 97.5 fl (82-101) 01/02/24 04:50 MCH 31.7 pg (27-33) 01/02/24 04:50 MCHC 32.5 g/dL (30-55) 01/02/24 04:50 RDW 18.4 % (12.1-15.1) H 01/02/24 04:50 Plt Count 252 10^3/cmm (157-399) 01/02/24 04:50 MPV 9.8 fL (7.4-10.4) 01/02/24 04:50 Neut % (Auto) 47.2 % 01/02/24 04:50 Lymph % (Auto) 34.5 % 01/02/24 04:50 [place] % (Auto) 13.7 % 01/02/24 04:50 Eos % (Auto) 3.0 % 01/02/24 04:50 Baso % (Auto) 1.3 % 01/02/24 04:50 Neut # (Auto) 3.34 10^3/uL (1.8-7.7) 01/02/24 04:50 Lymph # (Auto) 2.4 10^3/uL (0.8-4.8) 01/02/24 04:50 [place] # (Auto) 1.0 10^3/uL (0.2-0.9) H 01/02/24 04:50 Eos # (Auto) 0.2 10^3/uL (0.0-0.8) 01/02/24 04:50 Baso # (Auto) 0.1 10^3/uL (0.0-0.1) 01/02/24 04:50 Nucleated RBC % (auto) 0 % 01/02/24 04:50 Nucleated RBCs # 0.0 /100WBC 01/02/24 04:50 Sodium 143 mmol/L (136-145) 01/02/24 04:50 Potassium 3.1 mmol/L (3.5-5.1) L 01/02/24 04:50 Chloride 103 mmol/L (98-107) 01/02/24 04:50 Carbon Dioxide 23 mmol/L (22-29) 01/02/24 04:50 Anion Gap 20.1 (5-19) H 01/02/24 04:50 BUN 11 mg/dL (8-23) 01/02/24 04:50 Creatinine 0.6 mg/dL (0.7-1.2) L 01/02/24 04:50 GFR Calculation Not Reportable 01/02/24 04:50 Glucose 88 mg/dL (65-115) 01/02/24 04:50 Calculated Osmolality 295 mOsm/kg (285-295) 01/02/24 04:50 Calcium 8.5 mg/dL (8.5-10.5) 01/02/24 04:50 Magnesium 1.3 mg/dL (1.7-2.3) L 01/02/24 04:50 Total Bilirubin 0.3 mg/dL (0.15-1.2) 01/02/24 04:50 AST 20 U/L (0-40) 01/02/24 04:50 ALT 6 U/L (0-41) 01/02/24 04:50 Alkaline Phosphatase 122 U/L (40-130) 01/02/24 04:50 Total Protein 6.5 g/dL (6.6-8.7) L 01/02/24 04:50 Albumin 3.7 g/dL (3.5-5.2) 01/02/24 04:50 Globulin 2.8 g/dL (1.3-4.6) 01/02/24 04:50 Ethyl Alcohol 353 mg/dL (0-10) H* 01/02/24 04:50 Discharge Plan Discharge Patient Disposition: Home Clinical Impression: Fall, Acute alcoholic intoxication Condition: Stable Prescriptions: No Action nitroglycerin [Nitrostat] 0.4 mg tablet, sublingual 0.4 mg sublingual Q5M PRN (Reason: Chest Pain) Rx Instructions: do not exceed 3 doses per episode (DME) foot soak basin See Rx Instructions .Route .MEDSUPPLY Qty: 1 0RF Rx Instructions: As directed to HOME (DME) park brace. See Rx Instructions .Route .MEDSUPPLY Qty: 1 0RF Rx Instructions: As directed multivitamin Tablet 1 tab PO QAM aspirin [Adult Aspirin Regimen] 81 mg tablet,delayed release (DR/EC) 81 mg PO QAM 30 Days Qty: 30 0RF atorvastatin 20 mg tablet 20 mg PO QAM Discharge Orders: Discharge ED (Routine); Ordered 01/02/24 Ordered By: Emmanuel Murray Referrals: Medardo Bowers MD [Primary Care Provider] - Discharge Diet: Usual diet Discharge Activity: Increase activity as tolerated Patient Instructions: Abuse of Alcohol (ED), Opioid Safety, Pain Management Activity Restrictions/Additional Instructions: Thank you for choosing [facility] for your healthcare needs today. It is very important that you follow up as instructed or that you return to the Emergency Department should you have concerns or if your condition changes or worsens in any way. Avoid the use of alcohol Sign Out Sign Out Data: Patient Sign Out occurred on 01/02/24 at 06:13. Patient's care was discussed, and care was transferred from Jackson Tamayo DO to Emmanuel Murray DO. Coding Level of Care Code ED Metal Inspector for Katrin Mike
[2024-01-02 05:06] LABS: Basophils # 0.1 10^3/uL (0.0-0.1); Basophils % 1.3 %; Eosinophils # 0.2 10^3/uL (0.0-0.8); Hematocrit 35.4 % (37-53); Lymphocytes # 2.4 10^3/uL (0.8-4.8); Lymphocytes % 34.5 %; Mean Corpuscular HGB Conc 32.5 g/dL (30-55); Mean Corpuscular Hemoglobin 31.7 pg (27-33); Mean Corpuscular Volume 97.5 fl (82-101); Mean Platelet Volume 9.8 fL (7.4-10.4); Monocytes % 13.7 %; Neutrophils # 3.34 10^3/uL (1.8-7.7); Neutrophils % 47.2 %; Nucleated Red Blood Cells % 0 %; Platelet Count 252 10^3/cmm (157-399); Red Blood Count 3.63 10^6/uL (3.85-5.65); Red Cell Distribution Width 18.4 % (12.1-15.1); White Blood Count 7.07 10^3/uL (3.29-11.43)
[2024-01-02 05:21] LABS: Alanine Aminotransferase 6 U/L (0-41); Albumin Level 3.7 g/dL (3.5-5.2); Alkaline Phosphatase 122 U/L (40-130); Anion Gap 20.1 (5-19); Aspartate Amino Transferase 20 U/L (0-40); Blood Urea Nitrogen 11 mg/dL (8-23); Calcium 8.5 mg/dL (8.5-10.5); Carbon Dioxide 23 mmol/L (22-29); Chloride 103 mmol/L (98-107); Creatinine Clr Calc Pharmacy 74.9688; Globulin 2.8 g/dL (1.3-4.6); Glucose 88 mg/dL (65-115); Magnesium 1.3 mg/dL (1.7-2.3); Osmolality Calculated 295 mOsm/kg (285-295); Potassium 3.1 mmol/L (3.5-5.1); Sodium 143 mmol/L (136-145); Total Bilirubin 0.3 mg/dL (0.15-1.2); Total Protein 6.5 g/dL (6.6-8.7)
[2024-01-02 05:23] LABS: Alcohol Level 353 mg/dL (0-10)
[2024-01-02 05:46] VITALS: BP 110/73; PULSE 63; O2SAT 97
[2024-01-02 06:13] VITALS: BP 110/73; PULSE 60; O2SAT 97
[2024-01-02] MEDS: potassium chloride ER 20 mEq Tablet 40 MEQ PO (06:19)
[2024-01-02] MEDS: magnesium sulfate premix 2 GM/50 ML PIGGYBACK IV (06:26)
--- NOTE | 2024-01-02 07:06 | PC.NURSE ---
pt ambulated successfully with walker down the hallway and back to room with no complaints and no falls.
[2024-01-02 08:08] VITALS: BP 117/67; PULSE 50; O2SAT 100
== END 2024-01-02 08:08 | disposition home or self-care (01) ==
PROVIDERS: Emergency Medicine; Emergency Provider Family Medicine; PCP Family Medicine
DX: F10.129 Alcohol abuse with intoxication, unspecified (principal); Y90.8 Blood alcohol level of 240 mg/100 ml or more; F17.210 Nicotine dependence, cigarettes, uncomplicated; I25.2 Old myocardial infarction; Z85.048 Personal history of other malignant neoplasm of rectum, rectosigmoid junction, and anus; J44.9 Chronic obstructive pulmonary disease, unspecified; I10 Essential (primary) hypertension; Z86.73 Personal history of transient ischemic attack (TIA), and cerebral infarction without residual deficits
CPT/HCPCS: 80053; 80307; 83735; 85025; 96374; 99284; J3475

== ENCOUNTER 2024-01-23 23:24 | Emergency (ER) | payer MEDICARE, MEDICAID, SELFPAY ==
[2024-01-23 23:27] VITALS: BP 105/62; PULSE 61; RESP 20; TEMP 36.6; O2SAT 99; BMI 16.4
--- NOTE | 2024-01-23 23:32 | ED_ITS ---
HPI - Fall General: Chief Complaint: Fall Stated Complaint: fall Time Seen by Provider: 01/23/24 23:25 History of Present Illness: Patient presents to the ER by EMS after a fall. Patient is complained of hand pain and left elbow pain. Patient does have skin tears in both these areas. Patient has been drinking. Patient has no other complaints at this time. Patient is moving all extremities equally. Related Data Home Medications Medication Instructions Recorded Confirmed nitroglycerin 0.4 mg sublingual 0.4 mg sublingual Q5M PRN Chest 10/18/20 01/02/24 tablet (Nitrostat) Pain atorvastatin 20 mg tablet 20 mg PO QAM 09/14/22 01/02/24 multivitamin 1 tab PO QAM 02/22/23 01/02/24 Previous Rx's Medication Instructions Recorded foot soak basin #1 ea 12/09/22 park brace. #1 ea 02/18/23 aspirin 81 mg tablet,delayed 81 mg PO QAM 30 days #30 tabs 02/27/23 release (Adult Aspirin Regimen) Allergies Allergy/AdvReac Type Severity Reaction Status Date / Time corn Allergy ADR-Nausea Verified 12/01/23 03:40 [email or web address] Allergy Uknown Verified 12/01/23 03:40 [place] Allergy ALGY-Rash Verified 12/01/23 03:40 Penicillins Allergy ALGY-Difficulty Verified 12/01/23 03:40 Breathing Review of Systems General: Reports: 10 or more systems reviewed and unremarkable except in HPI and below PFSH ED PFSH: Medical History Alcoholic intoxication Peripheral vascular disease Alcohol withdrawal Alcoholic ketoacidosis Hypomagnesemia Alcohol abuse Generalized weakness Depression Anxiety Myocardial infarction Alcoholism Pancreatitis Status post chemoradiation Cholelithiasis Dizziness Anal cancer COPD (chronic obstructive pulmonary disease) Hypertension CVA (cerebral vascular accident) DVT (deep venous thrombosis) Acute dehydration Vomiting Surgical History Status post laparoscopic cholecystectomy (11/13/20) Hx of non-cataract eye surgery Hx of cataract extraction History of ankle surgery History of tonsillectomy Status post colonoscopy Family History Other Family history non-contributory Social History (Reviewed 10/25/24 @ 23:32 by HONG Kelly Smoking and tobacco/nicotine status: current every day tobacco/nicotine user cigarettes Packs smoked per day: 0.5 Alcohol intake: current Alcohol intake frequency: 3 or more drinks per day Substance/Drug Use: never Household members: family Housing: House Physical Exam Const: COMMON NORMALS: no acute distress, average body habitus, patient oriented x3, no limitations, healthy appearing, alert and well nourished HENMT: COMMON NORMALS: normocephalic, atraumatic, hearing grossly normal bilaterally, external ears normal, Normal external nose present and moist oral mucous membranes HEAD & SCALP: normocephalic and atraumatic NOSE: Normal external nose present EXTERNAL EAR: Yes external ears normal Neck/C-Spine: COMMON NORMALS: no JVD Chest: COMMONS NORMALS: normal inspection of the chest and normal palpation of entire chest wall Resp: COMMON NORMALS: normal respiratory effort, No retractions, No use of accessory muscles and clear to auscultation bilaterally AUSCULTATION: clear to auscultation bilaterally Cardio: COMMON NORMALS: no JVD, regular rate, regular rhythm, S1 normal heart sound present, S2 normal heart sound present, No gallops present (Cardio), No clicks present (Cardio), No murmurs present (Cardio) and No rub (Cardio) RATE: regular rate RHYTHM: regular rhythm HEART SOUNDS: S1 normal heart sound present and S2 normal heart sound present GI: COMMON NORMALS: Normal to inspection, nondistended, normoactive bowel sounds present, Soft to palpation, non-tender, No hepatosplenomegaly present and no masses PALPATION: Yes Soft to palpation and Yes No hepatosplenomegaly present Neuro: COMMON NORMALS: patient oriented x3 SENSORIUM/ORIENTATION: Yes alert Course Vital Signs: Vital signs: Vital Signs Temperature 97.8 F 01/23/24 23:27 Pulse Rate 61 01/23/24 23:27 Respiratory Rate 20 H 01/23/24 23:27 Blood Pressure 105/62 01/23/24 23:27 Pulse Oximetry 99 01/23/24 23:27 MDM - Fall Medical Decision Making Patient brought in by EMS after fall. Patient has been drinking. Patient only complaints are skin tears on his right wrist and left elbow region. These have been dressed. Patient will be discharged. Medical Records I reviewed the patient's medical records. Lab Data I reviewed the patient's lab results. No radiology studies performed this visit Discharge Plan Discharge Patient Disposition: Home Clinical Impression: Fall, Multiple skin tears Condition: Stable Prescriptions: No Action nitroglycerin [Nitrostat] 0.4 mg tablet, sublingual 0.4 mg sublingual Q5M PRN (Reason: Chest Pain) Rx Instructions: do not exceed 3 doses per episode (DME) foot soak basin See Rx Instructions .Route .MEDSUPPLY Qty: 1 0RF Rx Instructions: As directed to HOME (DME) xavier klein. See Rx Instructions .Route .MEDSUPPLY Qty: 1 0RF Rx Instructions: As directed multivitamin Tablet 1 tab PO QAM aspirin [Adult Aspirin Regimen] 81 mg tablet,delayed release (DR/EC) 81 mg PO QAM 30 Days Qty: 30 0RF atorvastatin 20 mg tablet 20 mg PO QAM Discharge Orders: Discharge ED (Routine); Ordered 01/23/24 Ordered By: Jackson Tamayo Referrals: Medardo Bowers MD [Primary Care Provider] - 1 week Patient Instructions: Skin Tear (ED) Activity Restrictions/Additional Instructions: Thank you for choosing [facility] for your healthcare needs today. Please realize that you were seen in the emergency department and that we are providing you with an emergency medical screening exam and this may not be a complete and all exclusive of all testing and/or medical workup we may need to determine your element or severity of your illness. It is very important that you follow-up as instructed with your primary care provider or specialist for the additional evaluation and to discuss your medical treatment plan. You may return to the emergency department should you have concerns or if your condition changes or worsens in any way. Coding Level of Care Code ED Livestock Broker for Katrin iMke
[2024-01-24 00:17] VITALS: BP 90/56; PULSE 68; RESP 16; O2SAT 97
== END 2024-01-24 00:19 | disposition home or self-care (01) ==
PROVIDERS: Emergency Provider Emergency Medicine; PCP Family Medicine
DX: S51.012A Laceration without foreign body of left elbow, initial encounter (principal); S61.511A Laceration without foreign body of right wrist, initial encounter; W19.XXXA Unspecified fall, initial encounter
CPT/HCPCS: 99283

== ENCOUNTER 2024-03-10 03:46 | Emergency (ER) | payer MEDICARE, MEDICAID, SELFPAY ==
[2024-03-10 03:47] VITALS: BP 125/73; PULSE 62; RESP 18; O2SAT 99; BMI 14.9
--- NOTE | 2024-03-10 03:56 | ED_ITS ---
HPI - Fall General: Chief Complaint: Fall Stated Complaint: FALL Time Seen by Provider: 03/10/24 03:51 History of Present Illness: Patient presents to the ER by EMS with complaints of sudden sports catching pressure and falling. Patient has a skin tear on his right elbow. Patient has no other complaints at this time. Patient has been drinking. Patient has an old bruise on his left forehead from a fall last week that he was taken to [place] for. Related Data Home Medications Medication Instructions Recorded Confirmed nitroglycerin 0.4 mg sublingual 0.4 mg sublingual Q5M PRN Chest 10/18/20 tablet (Nitrostat) Pain atorvastatin 20 mg tablet 20 mg PO QAM 09/14/22 01/02/24 multivitamin 1 tab PO QAM 02/22/23 01/02/24 Previous Rx's Medication Instructions Recorded foot soak basin #1 ea 12/09/22 park brace. #1 ea 02/18/23 aspirin 81 mg tablet,delayed 81 mg PO QAM 30 days #30 tabs 02/27/23 release (Adult Aspirin Regimen) Allergies Allergy/AdvReac Type Severity Reaction Status Date / Time corn Allergy ADR-Nausea Verified 03/10/24 03:54 [place] Allergy Uknown Verified 03/10/24 03:54 pear Allergy ALGY-Rash Verified 03/10/24 03:54 Penicillins Allergy ALGY-Difficulty Verified 03/10/24 03:54 Breathing Review of Systems General: Reports: 10 or more systems reviewed and unremarkable except in HPI and below PFSH ED PFSH: Medical History Alcoholic intoxication Peripheral vascular disease Alcohol withdrawal Alcoholic ketoacidosis Hypomagnesemia Alcohol abuse Generalized weakness Depression Anxiety Myocardial infarction Alcoholism Pancreatitis Status post chemoradiation Cholelithiasis Dizziness Anal cancer COPD (chronic obstructive pulmonary disease) Hypertension CVA (cerebral vascular accident) DVT (deep venous thrombosis) Acute dehydration Vomiting Surgical History Status post laparoscopic cholecystectomy (11/13/20) Hx of non-cataract eye surgery Hx of cataract extraction History of ankle surgery History of tonsillectomy Status post colonoscopy Family History Other Family history non-contributory Social History Smoking and tobacco/nicotine status: current every day tobacco/nicotine user cigarettes Packs smoked per day: 0.5 Alcohol intake: current Alcohol intake frequency: 3 or more drinks per day Substance/Drug Use: never Household members: family Housing: House Physical Exam Const: COMMON NORMALS: no acute distress, average body habitus, patient oriented x3, no limitations, healthy appearing, alert and well nourished HENMT: COMMON NORMALS: hearing grossly normal bilaterally, external ears normal, Normal external nose present and moist oral mucous membranes NOSE: Normal external nose present EXTERNAL EAR: Yes external ears normal Neck/C-Spine: COMMON NORMALS: no JVD Chest: COMMONS NORMALS: normal inspection of the chest and normal palpation of entire chest wall Resp: COMMON NORMALS: normal respiratory effort, No retractions, No use of accessory muscles and clear to auscultation bilaterally AUSCULTATION: clear to auscultation bilaterally Cardio: COMMON NORMALS: no JVD, regular rate, regular rhythm, S1 normal heart sound present, S2 normal heart sound present, No gallops present (Cardio), No clicks present (Cardio), No murmurs present (Cardio) and No rub (Cardio) RATE: regular rate RHYTHM: regular rhythm HEART SOUNDS: S1 normal heart sound present and S2 normal heart sound present GI: COMMON NORMALS: Normal to inspection, nondistended, normoactive bowel sounds present, Soft to palpation, non-tender, No hepatosplenomegaly present and no masses PALPATION: Yes Soft to palpation and Yes No hepatosplenomegaly present Extremity: NARRATIVE EXTREMITY EXAM: Small skin tear on right elbow, Neuro: COMMON NORMALS: patient oriented x3 SENSORIUM/ORIENTATION: Yes alert Course Vital Signs: Vital signs: Vital Signs Pulse Rate 62 03/10/24 03:47 Respiratory Rate 18 03/10/24 03:47 Blood Pressure 125/73 03/10/24 03:47 Pulse Oximetry 99 03/10/24 03:47 Oxygen Delivery Me thod Room Air 03/10/24 03:47 MDM - Fall Medical Decision Making Patient presents to the ER from a fall on his porch. Patient has no complaints other than a skin tear on his right elbow. Patient will have this area dressed by nursing with a bandage. Patient be discharged home. Medical Records I reviewed the patient's medical records. Lab Data I reviewed the patient's lab results. No radiology studies performed this visit Discharge Plan Discharge Patient Disposition: Home Clinical Impression: Fall, Skin tear Condition: Stable Prescriptions: No Action nitroglycerin [Nitrostat] 0.4 mg tablet, sublingual 0.4 mg sublingual Q5M PRN (Reason: Chest Pain) Rx Instructions: do not exceed 3 doses per episode (DME) foot soak basin See Rx Instructions .Route .MEDSUPPLY Qty: 1 0RF Rx Instructions: As directed to HOME (DME) xavier klein. See Rx Instructions .Route .MEDSUPPLY Qty: 1 0RF Rx Instructions: As directed multivitamin Tablet 1 tab PO QAM aspirin [Adult Aspirin Regimen] 81 mg tablet,delayed release (DR/EC) 81 mg PO QAM 30 Days Qty: 30 0RF atorvastatin 20 mg tablet 20 mg PO QAM Discharge Orders: Discharge ED (Routine); Ordered 03/10/24 Ordered By: Jackson Tamayo Referrals: Medardo Bowers MD [Primary Care Provider] - 1 week Patient Instructions: Skin Tear (ED), Fall Prevention for Older Adults (ED) Activity Restrictions/Additional Instructions: Please change dressing on your right elbow as needed. Please keep the area clean and dry. Please try not to fall again. Please follow-up with your family practitioner in the next 7 days for further evaluation treatment as needed. Thank you for choosing [facility] for your healthcare needs today. Please realize that you were seen in the emergency department and that we are providing you with an emergency medical screening exam and this may not be a complete and all exclusive of all testing and/or medical workup we may need to determine your element or severity of your illness. It is very important that you follow-up as instructed with your primary care provider or specialist for the additional evaluation and to discuss your medical treatment plan. You may return to the emergency department should you have concerns or if your condition changes or worsens in any way. Coding Level of Care Code ED Production Material Coordinator for Katrin Mike
[2024-03-10 04:03] VITALS: TEMP 34.9
[2024-03-10 05:27] VITALS: BP 105/67; PULSE 60; O2SAT 99
== END 2024-03-10 05:29 | disposition home or self-care (01) ==
PROVIDERS: Emergency Provider Emergency Medicine; PCP Family Medicine
DX: S51.011A Laceration without foreign body of right elbow, initial encounter (principal); W19.XXXA Unspecified fall, initial encounter; Z79.82 Long term (current) use of aspirin; F17.210 Nicotine dependence, cigarettes, uncomplicated; I25.2 Old myocardial infarction; J44.9 Chronic obstructive pulmonary disease, unspecified; Z86.73 Personal history of transient ischemic attack (TIA), and cerebral infarction without residual deficits; C21.0 Malignant neoplasm of anus, unspecified
CPT/HCPCS: 99282

== ENCOUNTER 2024-03-10 19:36 | Emergency (ER) | payer MEDICARE, MEDICAID, SELFPAY ==
[2024-03-10 19:41] VITALS: BP 98/70; PULSE 108; RESP 16; TEMP 36.6; O2SAT 95; BMI 14.9
--- NOTE | 2024-03-10 19:55 | XRR_ITS ---
PROCEDURE INFORMATION: Exam: XR Chest Exam date and time: 03/10/2024 8:11 PM Age: 73 years old Clinical indication: Screening exam; Other screening; Additional info: Psych xfer TECHNIQUE: Imaging protocol: Radiologic exam of the chest. Views: 1 view. COMPARISON: CT chest con [id number] 01/01/2024 7:31 AM FINDINGS: Lungs: Emphysematous changes. Pleural spaces: Unremarkable. No pleural effusion. No pneumothorax. Heart/Mediastinum: Cardiomegaly. Bones/joints: Unremarkable. XR/XR chest 1V portable [id number] IMPRESSION: 1. Negative for infiltrate. 2. Emphysematous changes. 3. Cardiomegaly.
--- NOTE | 2024-03-10 20:08 | PC.NURSE ---
pts belongings were inventoried with security and placed in a locker
--- NOTE | 2024-03-10 20:11 | ED.C_ITS ---
Documented by User: ZOE Silva 03/10/24 20:15 HPI - Psych 2 General: Chief Complaint: Psychiatric Symptoms Stated Complaint: 96 HOUR HOLD Time Seen by Provider: 03/10/24 19:43 Source: patient Mode of arrival: ambulatory Limitations: no limitations History of Present Illness: Patient is a 73-year-old male who is well-known to the emergency department here, presenting with 96-hour hold in place after affidavits were written by patient's roommate/partner. Patient seen here last night, after a fall and a skin tear. Patient has reportedly been losing significant amount of weight as he has been refusing to eat, and patient's partner/roommate has been primary historian with all of his visits. I asked the patient if he is feeling suicidal, he states no. He is also denying any homicidal ideations or hallucinations. He does note that he never has an appetite and generally feels weak, but knows that he needs to be eating, just never has the energy to. Reportedly it has been attempted that he be placed in assisted living facility due to his needs, but partner/roommate gets upset every time patient gets sent home and not admitted to the hospital. He is a chronic alcoholic, regularly is seen here in the emergency department after a binge drinking episode. He denies to me any alcohol use today or any other drug use. Affidavits are on file, being reviewed at this time. Patient stating he wants to go to a facility that we will evaluate him and have him placed somewhere if need be. He states to me that the only medication he takes regularly is his atorvastatin. complaint: other (Failure to thrive) Duration: constant History of same: Yes Relieving factors: none Exacerbating factors: alcohol Context: recent alcohol abuse Associated symptoms: Deny auditory hallucinations, visual hallucinations, depression, homicidal ideation or suicidal ideation Related Data Home Medications Medication Instructions Recorded Confirmed atorvastatin 20 mg tablet 20 mg PO QAM 09/14/22 03/11/24 loperamide 2 mg capsule 2 mg PO Q4H PRN Diarrhea 03/11/24 03/11/24 Previous Rx's Medication Instructions Recorded foot soak basin #1 ea 12/09/22 xavier klein. #1 ea 02/18/23 escitalopram oxalate 5 mg tablet 5 mg PO DAILY #30 tabs 03/11/24 (Lexapro) Allergies Allergy/AdvReac Type Severity Reaction Status Date / Time corn Allergy ADR-Nausea Verified 03/10/24 19:47 modoc Allergy Uknown Verified 03/10/24 19:47 pear Allergy ALGY-Rash Verified 03/10/24 19:47 Penicillins Allergy ALGY-Difficulty Verified 03/10/24 19:47 Breathing Review of Systems 2 General: Reports: 10 or more systems reviewed and unremarkable except in HPI and below Const: Reports: change in appetite and fatigue; Denies: fever(s) or chills Eyes: Denies: change in vision ENMT: Denies: throat pain, ear or mastoid pain or nasal discharge Card: Denies: chest pain, palpitations, swelling of feet/ankles or lightheadedness Resp: Denies: dyspnea, productive cough or wheezing GI: Denies: abdominal pain, nausea, vomiting, diarrhea or constipation : Denies: flank pain, difficulty urinating, dysuria or urinary frequency Musc: Denies: neck pain, back pain or joint pain Skin/Breast: Denies: rash Neuro: Reports: weakness in extremities; Denies: headache(s) or numbness in extremities Psych: Reports: other (Failure to thrive); Denies: anxiety, depression, visual hallucinations, auditory hallucinations, tactile hallucinations, suicidal ideation or homicidal ideation PFSH ED 2 PFSH: Medical History Alcoholic intoxication Peripheral vascular disease Alcohol withdrawal Alcoholic ketoacidosis Hypomagnesemia Alcohol abuse Generalized weakness Depression Anxiety Myocardial infarction Alcoholism Pancreatitis Status post chemoradiation Cholelithiasis Dizziness Anal cancer COPD (chronic obstructive pulmonary disease) Hypertension CVA (cerebral vascular accident) DVT (deep venous thrombosis) Acute dehydration Vomiting Surgical History Status post laparoscopic cholecystectomy (11/13/20) Hx of non-cataract eye surgery Hx of cataract extraction History of ankle surgery History of tonsillectomy Status post colonoscopy Family History Other Family history non-contributory Social History Smoking and tobacco/nicotine status: current every day tobacco/nicotine user cigarettes Packs smoked per day: 0.5 Alcohol intake: current Alcohol intake frequency: 3 or more drinks per day Substance/Drug Use: never Household members: family Housing: House Physical Exam 2 Const: COMMON NORMALS: patient oriented x3 GENERAL APPEARANCE: cooperative and disheveled NUTRITIONAL APPEARANCE: underweight O RIENTATION/CONSCIOUSNESS: Yes awake HENMT: COMMON NORMALS: normocephalic and atraumatic HEAD & SCALP: n ormocephalic and atraumatic FACE & SINUS: normal facial exam OTHER: Dry oral mucosa Eye: COMMON NORMALS: Equal, round and reactive pupils present and EOMs intact bilaterally PUPIL: Yes Equal, round and reactive pupils present OTHER: Eyes sunken Neck/C-Spine: COMMON NORMALS: full ROM Resp: COMMON NORMALS: normal respiratory effort, No retractions, No use of accessory muscles and clear to auscultation bilaterally AUSCULTATION: clear to auscultation bilaterally Cardio: COMMON NORMALS: regular rate, regular rhythm, S1 normal heart sound present, S2 normal heart sound present, No gallops present (Cardio), No clicks present (Cardio) and No murmurs present (Cardio) RATE: regular rate R HYTHM: regular rhythm HEART SOUNDS: S1 normal heart sound present and S2 normal heart sound present GI: COMMON NORMALS: Normal to inspection, nondistended, normoactive bowel sounds present, Soft to palpation and non-tender PALPATION: Yes Soft to palpation Extremity: COMMON NORMALS: normal to inspection and full ROM Neuro: COMMON NORMALS: patient oriented x3, moves all extremities, no focal motor deficits and no sensory deficits noted Psych: COMMON NORMALS: mental status grossly normal, Normal thought process present and speech normal APPEARANCE: Yes unkempt ATTITUDE: Yes calm A CTIVITY/MOTOR BEHAVIOR: Yes appropriate eye contact SPEECH: Yes normal speech MOOD & AFFECT: Yes depressed mood THOUGHT PROCESS: Normal thought process present THOUGHT CONTENT: Yes Normal thought content present Skin: COMMON NORMALS: no rashes or lesions noted GENERAL SKIN EXAM: no rashes or lesions noted Course 2 Vital Signs: Vital signs: Vital Signs Temperature 97.9 F 03/10/24 19:41 Pulse Rate 66 03/11/24 17:28 Respiratory Rate 14 03/11/24 17:28 Blood Pressure 125/71 03/11/24 17:28 Pulse Oximetry 99 03/11/24 17:28 Oxygen Delivery Me thod Room Air 03/11/24 17:28 MDM - Psych Lab Data 03/10/24 20:11 03/10/24 20:11 Radiology Impressions Chest X-Ray 03/10/24 19:55 IMPRESSION: 1. Negative for infiltrate. 2. Emphysematous changes. 3. Cardiomegaly. Laboratory Results WBC 6.59 10^3/uL (3.29-11.43) 03/10/24 20:11 RBC 3.59 10^6/uL (3.85-5.65) L 03/10/24 20:11 Hgb 11.60 g/dL (11.27-16.99) 03/10/24 20:11 Hct 34.8 % (37-53) L 03/10/24 20:11 MCV 96.9 fl (82-101) 03/10/24 20:11 MCH 32.3 pg (27-33) 03/10/24 20:11 MCHC 33.3 g/dL (30-55) 03/10/24 20:11 RDW 16.3 % (12.1-15.1) H 03/10/24 20:11 Plt Count 185 10^3/cmm (157-399) 03/10/24 20:11 MPV 9.3 fL (7.4-10.4) 03/10/24 20:11 Neut % (Auto) 56.4 % 03/10/24 20:11 Lymph % (Auto) 27.3 % 03/10/24 20:11 [place] % (Auto) 9.9 % 03/10/24 20:11 Eos % (Auto) 5.0 % 03/10/24 20:11 Baso % (Auto) 0.9 % 03/10/24 20:11 Neut # (Auto) 3.72 10^3/uL (1.8-7.7) 03/10/24 20:11 Lymph # (Auto) 1.8 10^3/uL (0.8-4.8) 03/10/24 20:11 [place] # (Auto) 0.7 10^3/uL (0.2-0.9) 03/10/24 20:11 Eos # (Auto) 0.3 10^3/uL (0.0-0.8) 03/10/24 20:11 Baso # (Auto) 0.1 10^3/uL (0.0-0.1) 03/10/24 20:11 Nucleated RBC % (auto) 0 % 03/10/24 20:11 Nucleated RBCs # 0.0 /100WBC 03/10/24 20:11 Sodium 138 mmol/L (136-145) 03/10/24 20:11 Potassium 4.0 mmol/L (3.5-5.1) 03/10/24 20:11 Chloride 101 mmol/L (98-107) 03/10/24 20:11 Carbon Dioxide 19 mmol/L (22-29) L 03/10/24 20:11 Anion Gap 22.0 (5-19) H 03/10/24 20:11 BUN 14 mg/dL (8-23) 03/10/24 20:11 Creatinine 0.6 mg/dL (0.7-1.2) L 03/10/24 20:11 GFR Calculation Not Reportable 03/10/24 20:11 Glucose 90 mg/dL (65-115) 03/10/24 20:11 Calculated Osmolality 286 mOsm/kg (285-295) 03/10/24 20:11 Calcium 8.8 mg/dL (8.5-10.5) 03/10/24 20:11 Total Bilirubin 0.4 mg/dL (0.15-1.2) 03/10/24 20:11 AST 20 U/L (0-40) 03/10/24 20:11 ALT 8 U/L (0-41) 03/10/24 20:11 Alkaline Phosphatase 105 U/L (40-130) 03/10/24 20:11 Total Protein 6.5 g/dL (6.6-8.7) L 03/10/24 20:11 Albumin 3.7 g/dL (3.5-5.2) 03/10/24 20:11 Globulin 2.8 g/dL (1.3-4.6) 03/10/24 20:11 TSH 1.18 uIU/mL (0.27-4.20) 03/10/24 20:11 Urine Color Yellow (Yellow) 03/10/24 23:44 Urine Appearance Clear (CLEAR) 03/10/24 23:44 Urine pH 5.0 (5-7) 03/10/24 23:44 Ur Specific [place] 1.017 (1.005-1.030) 03/10/24 23:44 Urine Protein Negative (Negative) 03/10/24 23:44 Urine Glucose (UA) Negative (Normal) 03/10/24 23:44 Urine Ketones Trace (Negative) 03/10/24 23:44 Urine Blood Negative (Negative) 03/10/24 23:44 Urine Nitrate Negative (Negative) 03/10/24 23:44 Urine Bilirubin Negative (Negative) 03/10/24 23:44 Urine Urobilinogen 1.0 mg/dL (Negative) 03/10/24 23:44 Ur Leukocyte Esterase Negative (Negative) 03/10/24 23:44 Urine RBC 0-2 /hpf (0-2) 03/10/24 23:44 Urine WBC 0-5 /hpf (0-5) 03/10/24 23:44 Ur Squamous Epith Cells 6-10 /hpf (0-5) 03/10/24 23:44 Amorphous Sediment Not Reportable 03/10/24 23:44 Urine Bacteria None seen /hpf (NONE) 03/10/24 23:44 Hyaline Casts 0.81 /lpf 03/10/24 23:44 Salicylates 1.2 mg/dL (3-10) L 03/10/24 20:11 Urine Opiates Screen Negative ng/mL (Negative) 03/10/24 23:44 Acetaminophen < 5.0 ug/mL (10-30) L 03/10/24 20:11 Ur Barbiturates Screen Negative ng/mL (Negative) 03/10/24 23:44 Ur Phencyclidine Scrn Negative ng/mL (Negative) 03/10/24 23:44 Ur Amphetamines Screen Negative ng/mL (Negative) 03/10/24 23:44 U Benzodiazepines Scrn Negative ng/mL (Negative) 03/10/24 23:44 Urine Cocaine Screen Negative ng/mL (Negative) 03/10/24 23:44 U Marijuana (THC) Screen Negative ng/mL (Negative) 03/10/24 23:44 Ethyl Alcohol 181 mg/dL (0-10) H 03/10/24 20:11 Coronavirus (PCR) Negative (Negative) 03/10/24 20:56 Influenza A (PCR) Negative (Negative) 03/10/24 20:56 Influenza Type B (PCR) Negative (Negative) 03/10/24 20:56 RSV (PCR) Negative (Negative) 03/10/24 20:56 Discharge Plan Discharge Patient Disposition: Home Clinical Impression: Adult failure to thrive, Alcohol abuse Depression Qualifiers: Depression Type: unspecified Qualified Code(s): F32.A - Depression, unspecified Condition: Stable Prescriptions: New escitalopram oxalate [Lexapro] 5 mg tablet 5 mg PO DAILY Qty: 30 0RF No Action (DME) foot soak basin See Rx Instructions .Route .MEDSUPPLY Qty: 1 0RF Rx Instructions: As directed to HOME (DME) xavier klein. See Rx Instructions .Route .MEDSUPPLY Qty: 1 0RF Rx Instructions: As directed loperamide [Imodium] 2 mg Capsule 2 mg PO Q4H PRN (Reason: Diarrhea) Rx Instructions: administer after each loose stool until symptoms controlled; do not exceed 8 mg per 24 hrs atorvastatin 20 mg tablet 20 mg PO QAM Discharge Orders: Discharge ED (Routine); Ordered 03/12/24 Ordered By: Jackson Tamayo Referrals: Medardo Bowers MD [Primary Care Provider] - 1 week Patient Instructions: Abuse of Alcohol (ED), Depression in Older Adults (ED) Activity Restrictions/Additional Instructions: Please slowly lower your alcohol consumption. Please fruit or nut picker the Lexapro sent to your pharmacy and start taking it 1 pill daily as prescribed. He had been referred to case management for an appointment for [facility], they will be calling you within the next 1-2 business days. Otherwise if you start feeling worse or suicidal homicidal follow-up with crisis center immediately or return to the ER. Follow-up with your primary care physician within next 7 days for further evaluation treatment as needed. Coding Level of Care Code ED Assistant Professor Of Nursing for Chg Fwd Documented by User: Emmanuel Murray DO 03/15/24 05:51 HPI - Psych 2 General: Chief Complaint: Psychiatric Symptoms Stated Complaint: 96 HOUR HOLD Time Seen by Provider: 03/10/24 19:43 Related Data Home Medications Medication Instructions Recorded Confirmed atorvastatin 20 mg tablet 20 mg PO QAM 09/14/22 03/11/24 loperamide 2 mg capsule 2 mg PO Q4H PRN Diarrhea 03/11/24 03/11/24 Previous Rx's Medication Instructions Recorded foot soak basin #1 ea 12/09/22 park brace. #1 ea 02/18/23 escitalopram oxalate 5 mg tablet 5 mg PO DAILY #30 tabs 03/11/24 (Lexapro) Allergies Allergy/AdvReac Type Severity Reaction Status Date / Time corn Allergy ADR-Nausea Verified 03/10/24 19:47 modoc Allergy Uknown Verified 03/10/24 19:47 pear Allergy ALGY-Rash Verified 03/10/24 19:47 Penicillins Allergy ALGY-Difficulty Verified 03/10/24 19:47 Breathing PFSH ED 2 PFSH: Medical History Alcoholic intoxication Peripheral vascular disease Alcohol withdrawal Alcoholic ketoacidosis Hypomagnesemia Alcohol abuse Generalized weakness Depression Anxiety Myocardial infarction Alcoholism Pancreatitis Status post chemoradiation Cholelithiasis Dizziness Anal cancer COPD (chronic obstructive pulmonary disease) Hypertension CVA (cerebral vascular accident) DVT (deep venous thrombosis) Acute dehydration Vomiting Surgical History Status post laparoscopic cholecystectomy (11/13/20) Hx of non-cataract eye surgery Hx of cataract extraction History of ankle surgery History of tonsillectomy Status post colonoscopy Family History Other Family history non-contributory Social History Smoking and tobacco/nicotine status: current every day tobacco/nicotine user cigarettes Packs smoked per day: 0.5 Alcohol intake: current Alcohol intake frequency: 3 or more drinks per day Substance/Drug Use: never Household members: family Housing: [place] Course 2 Vital Signs: Vital signs: Vital Signs Temperature 97.9 F 03/10/24 19:41 Pulse Rate 66 03/11/24 17:28 Respiratory Rate 14 03/11/24 17:28 Blood Pressure 125/71 03/11/24 17:28 Pulse Oximetry 99 03/11/24 17:28 Oxygen Delivery Me thod Room Air 03/11/24 17:28 MDM - Psych Medical Decision Making Care assumed at change of shift. I reviewed the chart reviewed 96-hour hold. I went in reinterviewed the patient. He is not homicidal or suicidal. He describes himself is intermittently having anorexia. When I pressed him on the issue, he is not intentionally trying to lose weight. He has no aversion to eating food he does not want to have to prepare it himself. He states as long as somebody makes something for him he will eat it but if he has to get food for himself or prepared in any way he does not bother he will instead drink alcohol. He feels he is very depressed and unmotivated. In the past he has seen psychiatry and had counseling but this was 20 some years ago when he lived in [place]. He is not been on any antidepressants or medications recently is not seeing psychiatry or participating in any kind of counseling. He states he has been trying to smoke and has cut back on his smoking because it is bad for him and he only smokes 1 cigarette a day and sometimes not even that single cigarette. He does admit to drinking rather regularly. I cannot get him to quantify it. Reviewing the chart essentially every one of his visits in the last year has been related to alcohol use. Staff has been trying overnight since he came in to find a facility that might accept him and evaluate him further. So far none have excepted him. We currently have 3 facilities that are reviewing his case. He was here earlier in the day yesterday after a fall. The 96-hour hold does make mention of being here previously on a 96 and being released by Dr. Beasley however reviewing the chart I do not find documentation that he came in under 96-hour hold previously or had even seen Dr. Beasley recently. In October 2022 patient came in on a 96-hour hold. He was not homicidal or suicidal. I initially seen the patient signed out care to Dr. Beasley after I had consult with Dr. Abebe. Dr. Abebe seen the patient did not recommend psychiatric admission and rescinded the 96-hour hold. No other recent 96 is that I can find documented in the medical record. At presentation at the time in October 2022 this essentially identical to what he is presenting for today. I have contacted Dr. Abebe and will ask him to consult on the patient. Reviewed the 96-hour hold affidavits. While he does have a substance abuse problem both in reviewing the affidavits and talking to the patient I do not believe psychiatric admission will necessarily be helpful he should engage with a psychiatrist and get counseling and be enrolled in abstinence program of some form. Dr. Abebe has agreed to come and consult on the patient. Dr. Abebe explained to patient. Care signed out to Dr. Tamayo at change of shift. See final notes for diagnosis and disposition. Care transferred over to fl at shift change, Dr. Abebe came and saw the patient. He is not suicidal or homicidal or intentionally trying to hurt himself. He said that we could start him on 5 mg Lexapro, make him an appointment with [facility]/crisis center in 1 to 2 weeks for follow-up and then discharge. Lab Data 03/10/24 20:11 03/10/24 20:11 Radiology Impressions Chest X-Ray 03/10/24 19:55 IMPRESSION: 1. Negative for infiltrate. 2. Emphysematous changes. 3. Cardiomegaly. Laboratory Results WBC 6.59 10^3/uL (3.29-11.43) 03/10/24 20:11 RBC 3.59 10^6/uL (3.85-5.65) L 03/10/24 20:11 Hgb 11.60 g/dL (11.27-16.99) 03/10/24 20:11 Hct 34.8 % (37-53) L 03/10/24 20:11 MCV 96.9 fl (82-101) 03/10/24 20:11 MCH 32.3 pg (27-33) 03/10/24 20:11 MCHC 33.3 g/dL (30-55) 03/10/24 20:11 RDW 16.3 % (12.1-15.1) H 03/10/24 20:11 Plt Count 185 10^3/cmm (157-399) 03/10/24 20:11 MPV 9.3 fL (7.4-10.4) 03/10/24 20:11 Neut % (Auto) 56.4 % 03/10/24 20:11 Lymph % (Auto) 27.3 % 03/10/24 20:11 [place] % (Auto) 9.9 % 03/10/24 20:11 Eos % (Auto) 5.0 % 03/10/24 20:11 Baso % (Auto) 0.9 % 03/10/24 20:11 Neut # (Auto) 3.72 10^3/uL (1.8-7.7) 03/10/24 20:11 Lymph # (Auto) 1.8 10^3/uL (0.8-4.8) 03/10/24 20:11 [place] # (Auto) 0.7 10^3/uL (0.2-0.9) 03/10/24 20:11 Eos # (Auto) 0.3 10^3/uL (0.0-0.8) 03/10/24 20:11 Baso # (Auto) 0.1 10^3/uL (0.0-0.1) 03/10/24 20:11 Nucleated RBC % (auto) 0 % 03/10/24 20:11 Nucleated RBCs # 0.0 /100WBC 03/10/24 20:11 Sodium 138 mmol/L (136-145) 03/10/24 20:11 Potassium 4.0 mmol/L (3.5-5.1) 03/10/24 20:11 Chloride 101 mmol/L (98-107) 03/10/24 20:11 Carbon Dioxide 19 mmol/L (22-29) L 03/10/24 20:11 Anion Gap 22.0 (5-19) H 03/10/24 20:11 BUN 14 mg/dL (8-23) 03/10/24 20:11 Creatinine 0.6 mg/dL (0.7-1.2) L 03/10/24 20:11 GFR Calculation Not Reportable 03/10/24 20:11 Glucose 90 mg/dL (65-115) 03/10/24 20:11 Calculated Osmolality 286 mOsm/kg (285-295) 03/10/24 20:11 Calcium 8.8 mg/dL (8.5-10.5) 03/10/24 20:11 Total Bilirubin 0.4 mg/dL (0.15-1.2) 03/10/24 20:11 AST 20 U/L (0-40) 03/10/24 20:11 ALT 8 U/L (0-41) 03/10/24 20:11 Alkaline Phosphatase 105 U/L (40-130) 03/10/24 20:11 Total Protein 6.5 g/dL (6.6-8.7) L 03/10/24 20:11 Albumin 3.7 g/dL (3.5-5.2) 03/10/24 20:11 Globulin 2.8 g/dL (1.3-4.6) 03/10/24 20:11 TSH 1.18 uIU/mL (0.27-4.20) 03/10/24 20:11 Urine Color Yellow (Yellow) 03/10/24 23:44 Urine Appearance Clear (CLEAR) 03/10/24 23:44 Urine pH 5.0 (5-7) 03/10/24 23:44 Ur Specific [place] 1.017 (1.005-1.030) 03/10/24 23:44 Urine Protein Negative (Negative) 03/10/24 23:44 Urine Glucose (UA) Negative (Normal) 03/10/24 23:44 Urine Ketones Trace (Negative) 03/10/24 23:44 Urine Blood Negative (Negative) 03/10/24 23:44 Urine Nitrate Negative (Negative) 03/10/24 23:44 Urine Bilirubin Negative (Negative) 03/10/24 23:44 Urine Urobilinogen 1.0 mg/dL (Negative) 03/10/24 23:44 Ur Leukocyte Esterase Negative (Negative) 03/10/24 23:44 Urine RBC 0-2 /hpf (0-2) 03/10/24 23:44 Urine WBC 0-5 /hpf (0-5) 03/10/24 23:44 Ur Squamous Epith Cells 6-10 /hpf (0-5) 03/10/24 23:44 Amorphous Sediment Not Reportable 03/10/24 23:44 Urine Bacteria None seen /hpf (NONE) 03/10/24 23:44 Hyaline Casts 0.81 /lpf 03/10/24 23:44 Salicylates 1.2 mg/dL (3-10) L 03/10/24 20:11 Urine Opiates Screen Negative ng/mL (Negative) 03/10/24 23:44 Acetaminophen < 5.0 ug/mL (10-30) L 03/10/24 20:11 Ur Barbiturates Screen Negative ng/mL (Negative) 03/10/24 23:44 Ur Phencyclidine Scrn Negative ng/mL (Negative) 03/10/24 23:44 Ur Amphetamines Screen Negative ng/mL (Negative) 03/10/24 23:44 U Benzodiazepines Scrn Negative ng/mL (Negative) 03/10/24 23:44 Urine Cocaine Screen Negative ng/mL (Negative) 03/10/24 23:44 U Marijuana (THC) Screen Negative ng/mL (Negative) 03/10/24 23:44 Ethyl Alcohol 181 mg/dL (0-10) H 03/10/24 20:11 Coronavirus (PCR) Negative (Negative) 03/10/24 20:56 Influenza A (PCR) Negative (Negative) 03/10/24 20:56 Influenza Type B (PCR) Negative (Negative) 03/10/24 20:56 RSV (PCR) Negative (Negative) 03/10/24 20:56 Discharge Plan Discharge Patient Disposition: Home Clinical Impression: Adult failure to thrive, Alcohol abuse Depression Qualifiers: Depression Type: unspecified Qualified Code(s): F32.A - Depression, unspecified Condition: Stable Prescriptions: New escitalopram oxalate [Lexapro] 5 mg tablet 5 mg PO DAILY Qty: 30 0RF No Action (DME) foot soak basin See Rx Instructions .Route .MEDSUPPLY Qty: 1 0RF Rx Instructions: As directed to HOME (DME) xavier klein. See Rx Instructions .Route .MEDSUPPLY Qty: 1 0RF Rx Instructions: As directed loperamide [Imodium] 2 mg Capsule 2 mg PO Q4H PRN (Reason: Diarrhea) Rx Instructions: administer after each loose stool until symptoms controlled; do not exceed 8 mg per 24 hrs atorvastatin 20 mg tablet 20 mg PO QAM Discharge Orders: Discharge ED (Routine); Ordered 03/12/24 Ordered By: Jackson Tamayo Referrals: Medardo Bowers MD [Primary Care Provider] - 1 week Patient Instructions: Abuse of Alcohol (ED), Depression in Older Adults (ED) Activity Restrictions/Additional Instructions: Please slowly lower your alcohol consumption. Please fruit or nut picker the Lexapro sent to your pharmacy and start taking it 1 pill daily as prescribed. He had been referred to case management for an appointment for [facility], they will be calling you within the next 1-2 business days. Otherwise if you start feeling worse or suicidal homicidal follow-up with crisis center immediately or return to the ER. Follow-up with your primary care physician within next 7 days for further evaluation treatment as needed. Coding Level of Care Code ED Assistant Professor Of Nursing for Chg Fwd Documented by User: Jackson Tamayo DO 03/12/24 00:19 HPI - Psych 2 General: Chief Complaint: Psychiatric Symptoms Stated Complaint: 96 HOUR HOLD Time Seen by Provider: 03/10/24 19:43 Related Data Home Medications Medication Instructions Recorded Confirmed atorvastatin 20 mg tablet 20 mg PO QAM 09/14/22 03/11/24 loperamide 2 mg capsule 2 mg PO Q4H PRN Diarrhea 03/11/24 03/11/24 Previous Rx's Medication Instructions Recorded foot soak basin #1 ea 12/09/22 park brace. #1 ea 02/18/23 escitalopram oxalate 5 mg tablet 5 mg PO DAILY #30 tabs 03/11/24 (Lexapro) Allergies Allergy/AdvReac Type Severity Reaction Status Date / Time corn Allergy ADR-Nausea Verified 03/10/24 19:47 [place]oc Allergy Uknown Verified 03/10/24 19:47 pear Allergy ALGY-Rash Verified 03/10/24 19:47 Penicillins Allergy ALGY-Difficulty Verified 03/10/24 19:47 Breathing PFSH ED 2 PFSH: Medical History Alcoholic intoxication Peripheral vascular disease Alcohol withdrawal Alcoholic ketoacidosis Hypomagnesemia Alcohol abuse Generalized weakness Depression Anxiety Myocardial infarction Alcoholism Pancreatitis Status post chemoradiation Cholelithiasis Dizziness Anal cancer COPD (chronic obstructive pulmonary disease) Hypertension CVA (cerebral vascular accident) DVT (deep venous thrombosis) Acute dehydration Vomiting Surgical History Status post laparoscopic cholecystectomy (11/13/20) Hx of non-cataract eye surgery Hx of cataract extraction History of ankle surgery History of tonsillectomy Status post colonoscopy Family History Other Family history non-contributory Social History Smoking and tobacco/nicotine status: current every day tobacco/nicotine user cigarettes Packs smoked per day: 0.5 Alcohol intake: current Alcohol intake frequency: 3 or more drinks per day Substance/Drug Use: never Household members: family Housing: House Course 2 Vital Signs: Vital signs: Vital Signs Temperature 97.9 F 03/10/24 19:41 Pulse Rate 66 03/11/24 17:28 Respiratory Rate 14 03/11/24 17:28 Blood Pressure 125/71 03/11/24 17:28 Pulse Oximetry 99 03/11/24 17:28 Oxygen Delivery Me thod Room Air 03/11/24 17:28 MDM - Psych Medical Decision Making Care assumed at change of shift. I reviewed the chart reviewed 96-hour hold. I went in reinterviewed the patient. He is not homicidal or suicidal. He describes himself is intermittently having anorexia. When I pressed him on the issue, he is not intentionally trying to lose weight. He has no aversion to eating food he does not want to have to prepare it himself. He states as long as somebody makes something for him he will eat it but if he has to get food for himself or prepared in any way he does not bother he will instead drink alcohol. He feels he is very depressed and unmotivated. In the past he has seen psychiatry and had counseling but this was 20 some years ago when he lived in [place]. He is not been on any antidepressants or medications recently is not seeing psychiatry or participating in any kind of counseling. He states he has been trying to smoke and has cut back on his smoking because it is bad for him and he only smokes 1 cigarette a day and sometimes not even that single cigarette. He does admit to drinking rather regularly. I cannot get him to quantify it. Reviewing the chart essentially every one of his visits in the last year has been related to alcohol use. Staff has been trying overnight since he came in to find a facility that might accept him and evaluate him further. So far none have excepted him. We currently have 3 facilities that are reviewing his case. He was here earlier in the day yesterday after a fall. The 96-hour hold does make mention of being here previously on a 96 and being released by Dr. Beasley however reviewing the chart I do not find documentation that he came in under 96-hour hold previously or had even seen Dr. Beasley recently. In October 2022 patient came in on a 96-hour hold. He was not homicidal or suicidal. I initially seen the patient signed out care to Dr. Beasley after I had consult with Dr. Abebe. Dr. Abebe seen the patient did not recommend psychiatric admission and rescinded the 96-hour hold. No other recent 96 is that I can find documented in the medical record. At presentation at the time in October 2022 this essentially identical to what he is presenting for today. I have contacted Dr. Abebe and will ask him to consult on the patient. Reviewed the 96-hour hold affidavits. While he does have a substance abuse problem both in reviewing the affidavits and talking to the patient I do not believe psychiatric admission will necessarily be helpful he should engage with a psychiatrist and get counseling and be enrolled in abstinence program of some form. Dr. Abebe has agreed to come and consult on the patient. Care transferred over to me at shift change, Dr. Abebe came and saw the patient. He is not suicidal or homicidal or intentionally trying to hurt himself. He said that we could start him on 5 mg Lexapro, make him an appointment with [facility]/crisis center in 1 to 2 weeks for follow-up and then discharge. Lab Data 03/10/24 20:11 03/10/24 20:11 Radiology Impressions Chest X-Ray 03/10/24 19:55 IMPRESSION: 1. Negative for infiltrate. 2. Emphysematous changes. 3. Cardiomegaly. Laboratory Results WBC 6.59 10^3/uL (3.29-11.43) 03/10/24 20:11 RBC 3.59 10^6/uL (3.85-5.65) L 03/10/24 20:11 Hgb 11.60 g/dL (11.27-16.99) 03/10/24 20:11 Hct 34.8 % (37-53) L 03/10/24 20:11 MCV 96.9 fl (82-101) 03/10/24 20:11 MCH 32.3 pg (27-33) 03/10/24 20:11 MCHC 33.3 g/dL (30-55) 03/10/24 20:11 RDW 16.3 % (12.1-15.1) H 03/10/24 20:11 Plt Count 185 10^3/cmm (157-399) 03/10/24 20:11 MPV 9.3 fL (7.4-10.4) 03/10/24 20:11 Neut % (Auto) 56.4 % 03/10/24 20:11 Lymph % (Auto) 27.3 % 03/10/24 20:11 [place] % (Auto) 9.9 % 03/10/24 20:11 Eos % (Auto) 5.0 % 03/10/24 20:11 Baso % (Auto) 0.9 % 03/10/24 20:11 Neut # (Auto) 3.72 10^3/uL (1.8-7.7) 03/10/24 20:11 Lymph # (Auto) 1.8 10^3/uL (0.8-4.8) 03/10/24 20:11 [place] # (Auto) 0.7 10^3/uL (0.2-0.9) 03/10/24 20:11 Eos # (Auto) 0.3 10^3/uL (0.0-0.8) 03/10/24 20:11 Baso # (Auto) 0.1 10^3/uL (0.0-0.1) 03/10/24 20:11 Nucleated RBC % (auto) 0 % 03/10/24 20:11 Nucleated RBCs # 0.0 /100WBC 03/10/24 20:11 Sodium 138 mmol/L (136-145) 03/10/24 20:11 Potassium 4.0 mmol/L (3.5-5.1) 03/10/24 20:11 Chloride 101 mmol/L (98-107) 03/10/24 20:11 Carbon Dioxide 19 mmol/L (22-29) L 03/10/24 20:11 Anion Gap 22.0 (5-19) H 03/10/24 20:11 BUN 14 mg/dL (8-23) 03/10/24 20:11 Creatinine 0.6 mg/dL (0.7-1.2) L 03/10/24 20:11 GFR Calculation Not Reportable 03/10/24 20:11 Glucose 90 mg/dL (65-115) 03/10/24 20:11 Calculated Osmolality 286 mOsm/kg (285-295) 03/10/24 20:11 Calcium 8.8 mg/dL (8.5-10.5) 03/10/24 20:11 Total Bilirubin 0.4 mg/dL (0.15-1.2) 03/10/24 20:11 AST 20 U/L (0-40) 03/10/24 20:11 ALT 8 U/L (0-41) 03/10/24 20:11 Alkaline Phosphatase 105 U/L (40-130) 03/10/24 20:11 Total Protein 6.5 g/dL (6.6-8.7) L 03/10/24 20:11 Albumin 3.7 g/dL (3.5-5.2) 03/10/24 20:11 Globulin 2.8 g/dL (1.3-4.6) 03/10/24 20:11 TSH 1.18 uIU/mL (0.27-4.20) 03/10/24 20:11 Urine Color Yellow (Yellow) 03/10/24 23:44 Urine Appearance Clear (CLEAR) 03/10/24 23:44 Urine pH 5.0 (5-7) 03/10/24 23:44 Ur Specific [place] 1.017 (1.005-1.030) 03/10/24 23:44 Urine Protein Negative (Negative) 03/10/24 23:44 Urine Glucose (UA) Negative (Normal) 03/10/24 23:44 Urine Ketones Trace (Negative) 03/10/24 23:44 Urine Blood Negative (Negative) 03/10/24 23:44 Urine Nitrate Negative (Negative) 03/10/24 23:44 Urine Bilirubin Negative (Negative) 03/10/24 23:44 Urine Urobilinogen 1.0 mg/dL (Negative) 03/10/24 23:44 Ur Leukocyte Esterase Negative (Negative) 03/10/24 23:44 Urine RBC 0-2 /hpf (0-2) 03/10/24 23:44 Urine WBC 0-5 /hpf (0-5) 03/10/24 23:44 Ur Squamous Epith Cells 6-10 /hpf (0-5) 03/10/24 23:44 Amorphous Sediment Not Reportable 03/10/24 23:44 Urine Bacteria None seen /hpf (NONE) 03/10/24 23:44 Hyaline Casts 0.81 /lpf 03/10/24 23:44 Salicylates 1.2 mg/dL (3-10) L 03/10/24 20:11 Urine Opiates Screen Negative ng/mL (Negative) 03/10/24 23:44 Acetaminophen < 5.0 ug/mL (10-30) L 03/10/24 20:11 Ur Barbiturates Screen Negative ng/mL (Negative) 03/10/24 23:44 Ur Phencyclidine Scrn Negative ng/mL (Negative) 03/10/24 23:44 Ur Amphetamines Screen Negative ng/mL (Negative) 03/10/24 23:44 U Benzodiazepines Scrn Negative ng/mL (Negative) 03/10/24 23:44 Urine Cocaine Screen Negative ng/mL (Negative) 03/10/24 23:44 U Marijuana (THC) Screen Negative ng/mL (Negative) 03/10/24 23:44 Ethyl Alcohol 181 mg/dL (0-10) H 03/10/24 20:11 Coronavirus (PCR) Negative (Negative) 03/10/24 20:56 Influenza A (PCR) Negative (Negative) 03/10/24 20:56 Influenza Type B (PCR) Negative (Negative) 03/10/24 20:56 RSV (PCR) Negative (Negative) 03/10/24 20:56 All radiology interpretation(s) finalized by discharge Discharge Plan Discharge Patient Disposition: Home Clinical Impression: Adult failure to thrive, Alcohol abuse Depression Qualifiers: Depression Type: unspecified Qualified Code(s): F32.A - Depression, unspecified Condition: Stable Prescriptions: New escitalopram oxalate [Lexapro] 5 mg tablet 5 mg PO DAILY Qty: 30 0RF No Action (DME) foot soak basin See Rx Instructions .Route .MEDSUPPLY Qty: 1 0RF Rx Instructions: As directed to HOME (DME) xavier klein. See Rx Instructions .Route .MEDSUPPLY Qty: 1 0RF Rx Instructions: As directed loperamide [Imodium] 2 mg Capsule 2 mg PO Q4H PRN (Reason: Diarrhea) Rx Instructions: administer after each loose stool until symptoms controlled; do not exceed 8 mg per 24 hrs atorvastatin 20 mg tablet 20 mg PO QAM Discharge Orders: Discharge ED (Routine); Ordered 03/12/24 Ordered By: Jackson Tamayo Referrals: Medardo Bowers MD [Primary Care Provider] - 1 week Patient Instructions: Abuse of Alcohol (ED), Depression in Older Adults (ED) Activity Restrictions/Additional Instructions: Please slowly lower your alcohol consumption. Please fruit or nut picker the Lexapro sent to your pharmacy and start taking it 1 pill daily as prescribed. He had been referred to case management for an appointment for [facility], they will be calling you within the next 1-2 business days. Otherwise if you start feeling worse or suicidal homicidal follow-up with crisis center immediately or return to the ER. Follow-up with your primary care physician within next 7 days for further evaluation treatment as needed. Coding Level of Care Code ED Assistant Professor Of Nursing for Katrin Mike
[2024-03-10 20:19] LABS: Basophils # 0.1 10^3/uL (0.0-0.1); Basophils % 0.9 %; Eosinophils # 0.3 10^3/uL (0.0-0.8); Hematocrit 34.8 % (37-53); Lymphocytes # 1.8 10^3/uL (0.8-4.8); Lymphocytes % 27.3 %; Mean Corpuscular HGB Conc 33.3 g/dL (30-55); Mean Corpuscular Hemoglobin 32.3 pg (27-33); Mean Corpuscular Volume 96.9 fl (82-101); Mean Platelet Volume 9.3 fL (7.4-10.4); Monocytes # 0.7 10^3/uL (0.2-0.9); Monocytes % 9.9 %; Neutrophils # 3.72 10^3/uL (1.8-7.7); Neutrophils % 56.4 %; Nucleated Red Blood Cells % 0 %; Platelet Count 185 10^3/cmm (157-399); Red Blood Count 3.59 10^6/uL (3.85-5.65); Red Cell Distribution Width 16.3 % (12.1-15.1); White Blood Count 6.59 10^3/uL (3.29-11.43)
--- NOTE | 2024-03-10 20:30 | ECG_ITS ---
OUYA YR.MRKT Test Date: 2024-03-10 Pat Name: Gerardo Millan Department: Room: Gender: Male Private Security Guard: : 1950 Requested By: Harry Melo Order Number: [id number] Bell MD: Jhonathan Fernandez M.D. Measurements Intervals [place] Rate: 61 P: 37 FL: 151 QRS: 1 QRSD: 80 T: 39 QT: 463 QTc: 468 Interpretive Statements SINUS RHYTHM SEPTAL MYOCARDIAL INFARCTION , OF INDETERMINATE AGE [40+ ms Q WAVE IN V1/V2] Compared to ECG 11/13/2023 17:48:33 Myocardial infarct finding now present Sinus bradycardia no longer present Electronically Signed On 03-12-2024 22:14:39 CUSTOMER SUPPORT PROFESSIONAL by Jhonathan Fernandez M.D. [email or web address]
--- NOTE | 2024-03-10 20:48 | PC.NURSE ---
96 Hour Involuntary Hold Patient Rights have been read & reviewed with the patient and a copy of the same has been given to him. Blanchard Grinder Operator Drake was present at bedside at the time of presentation of Rights.
[2024-03-10 20:51] LABS: Alanine Aminotransferase 8 U/L (0-41); Albumin Level 3.7 g/dL (3.5-5.2); Alcohol Level 181 mg/dL (0-10); Alkaline Phosphatase 105 U/L (40-130); Aspartate Amino Transferase 20 U/L (0-40); Blood Urea Nitrogen 14 mg/dL (8-23); Calcium 8.8 mg/dL (8.5-10.5); Carbon Dioxide 19 mmol/L (22-29); Chloride 101 mmol/L (98-107); Creatinine Clr Calc Pharmacy 58.9038; Globulin 2.8 g/dL (1.3-4.6); Glucose 90 mg/dL (65-115); Osmolality Calculated 286 mOsm/kg (285-295); Salicylate 1.2 mg/dL (3-10); Sodium 138 mmol/L (136-145); Thyroid Stimulating Hormone 1.18 uIU/mL (0.27-4.20); Total Bilirubin 0.4 mg/dL (0.15-1.2); Total Protein 6.5 g/dL (6.6-8.7)
[2024-03-10 20:53] LABS: Acetaminophen < 5.0 ug/mL (10-30)
[2024-03-10 21:39] LABS: Covid PCR NEGATIVE (Negative); Influenza A NEGATIVE (Negative); Influenza B NEGATIVE (Negative); Respiratory Syncytial Virus Ce NEGATIVE (Negative)
[2024-03-10 22:59] VITALS: BP 116/70; PULSE 64; RESP 16; O2SAT 97
--- NOTE | 2024-03-10 23:05 | PC.NURSE ---
This nurse asked pt for urine sample, pt stated not right now and went back to resting with eyes closed.
[2024-03-10 23:51] LABS: Bilirubin Urine Negative (Negative); Blood Urine Negative (Negative); Glucose Urine UA Negative (Normal); Ketones Urine Trace (Negative); Leukocyte Esterase Urine Negative (Negative); Nitrate Urine Negative (Negative); Protein Urine Negative (Negative); Specific Gravity, Urine 1.017 (1.005-1.030); Urine Appearance Clear (CLEAR); Urine Color Yellow (Yellow)
[2024-03-10 23:56] LABS: Add Urine Microscopic? YES; Bacteria Urine None Seen /hpf; Hyaline Casts Urine 0.81 /lpf; RBC Urine 0-2 /hpf (0-2); WBC Urine 0-5 /hpf (0-5)
[2024-03-10 23:58] LABS: Amphetamines Screen Urine Negative (Negative); Barbiturates Screen Urine Negative (Negative); Benzodiazepines Screen Urine Negative (Negative); Cocaine Screen Urine Negative (Negative); Opiate Screen Urine Negative (Negative); PCP Screen Urine Negative (Negative); THC Screen Urine Negative (Negative)
--- NOTE | 2024-03-11 00:40 | PC.NURSE ---
HAVE FAXED INFO FOR PLACMENT TO THE FOLLOWING FACILITIES AND WAITING TO HEAR BACK: [place], [facility], AND [facility] IN [place].
[2024-03-11 06:19] VITALS: BP 129/78; PULSE 68; O2SAT 96
[2024-03-11 17:28] VITALS: BP 125/71; PULSE 66; RESP 14; O2SAT 99
--- NOTE | 2024-03-11 18:29 | PC.NURSE ---
patient has eaten all meals at 100% while in the ER.
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
== END 2024-03-11 20:12 | disposition home or self-care (01) ==
PROVIDERS: Physician Assistant; Emergency Provider Family Medicine; PCP Family Medicine
DX: R62.7 Adult failure to thrive (principal); F32.A Depression, unspecified; F10.129 Alcohol abuse with intoxication, unspecified; Y90.6 Blood alcohol level of 120-199 mg/100 ml; F17.210 Nicotine dependence, cigarettes, uncomplicated; Z11.52 Encounter for screening for COVID-19; I25.2 Old myocardial infarction; J44.9 Chronic obstructive pulmonary disease, unspecified; Z86.73 Personal history of transient ischemic attack (TIA), and cerebral infarction without residual deficits
CPT/HCPCS: 0241U; 36415; 71045; 80053; 80306; 80307; 81001; 84443; 85025; 93005; 99285

== ENCOUNTER 2024-04-11 | Emergency (ER) | payer MEDICARE, SELFPAY ==
[2024-04-11 00:03] VITALS: BP 103/61; PULSE 67; RESP 20; TEMP 36.6; O2SAT 98; BMI 19.0
--- NOTE | 2024-04-11 00:30 | ED_ITS ---
HPI - Alcohol 2 General: Chief Complaint: Alcohol Stated Complaint: low bp, fall Time Seen by Provider: 04/11/24 00:04 History of Present Illness: 73-year-old male patient well-known to [facility] emergency department service. He presents with alcohol intoxication. Evidently his blood pressure was low at home, and he may or may not of fallen. The patient himself denies falling. He has no pain. He denies injury. No vomiting. No diarrhea. Related Data Home Medications Medication Instructions Recorded Confirmed atorvastatin 20 mg tablet 20 mg PO QAM 09/14/22 03/11/24 loperamide 2 mg capsule 2 mg PO Q4H PRN Diarrhea 03/11/24 03/11/24 Previous Rx's Medication Instructions Recorded foot soak basin #1 ea 12/09/22 park brace. #1 ea 02/18/23 escitalopram oxalate 5 mg tablet 5 mg PO DAILY #30 tabs 03/11/24 (Lexapro) Allergies Allergy/AdvReac Type Severity Reaction Status Date / Time corn Allergy ADR-Nausea Verified 03/10/24 19:47 [place] Allergy Uknown Verified 03/10/24 19:47 pear Allergy ALGY-Rash Verified 03/10/24 19:47 Penicillins Allergy ALGY-Difficulty Verified 03/10/24 19:47 Breathing PFSH ED 2 PFSH: Medical History Alcoholic intoxication Peripheral vascular disease Alcohol withdrawal Alcoholic ketoacidosis Hypomagnesemia Alcohol abuse Generalized weakness Depression Anxiety Myocardial infarction Alcoholism Pancreatitis Status post chemoradiation Cholelithiasis Dizziness Anal cancer COPD (chronic obstructive pulmonary disease) Hypertension CVA (cerebral vascular accident) DVT (deep venous thrombosis) Acute dehydration Vomiting Surgical History Status post laparoscopic cholecystectomy (11/13/20) Hx of non-cataract eye surgery Hx of cataract extraction History of ankle surgery History of tonsillectomy Status post colonoscopy Family History Other Family history non-contributory Social History Smoking and tobacco/nicotine status: current every day tobacco/nicotine user cigarettes Packs smoked per day: 0.5 Alcohol intake: current Alcohol intake frequency: 3 or more drinks per day Substance/Drug Use: never Household members: family Housing: House Physical Exam 2 Const: GENERAL APPEARANCE: cooperative, frail appearing and odor of alcohol detected; not ill appearing NUTRITIONAL APPEARANCE: thin HENMT: COMMON NORMALS: normocephalic, atraumatic and Normal external nose present HEAD & SCALP: normocephalic and atraumatic FACE & SINUS: normal facial exam and face symmetric NOSE: Normal external nose present Neck/C-Spine: GENERAL: Yes trachea midline Chest: CHEST: Yes Symmetrical chest wall rise Resp: COMMON NORMALS: normal respiratory effort, No retractions, No use of accessory muscles and clear to auscultation bilaterally AUSCULTATION: clear to auscultation bilaterally Cardio: COMMON NORMALS: regular rate and regular rhythm RATE: regular rate RHYTHM: regular rhythm GI: COMMON NORMALS: Normal to inspection, nondistended, normoactive bowel sounds present Extremity: COMMON NORMALS: no pedal edema Neuro: MARIA DEL CARMEN COMA SCALE: document GCS findings [place] coma scale eye opening: Spontaneous [place] coma scale verbal response: Orientated [place] coma scale motor response: Obey commands [place] coma scale total score: 15 S ENSORY EXAM: Yes extremities (intact) Skin: COMMON NORMALS: no rashes or lesions noted GENERAL SKIN EXAM: no rashes or lesions noted Course 2 Vital Signs: Vital signs: Vital Signs Temperature 98 F 04/11/24 00:03 Pulse Rate 60 04/11/24 02:44 Respiratory Rate 18 04/11/24 02:44 Blood Pressure 102/78 04/11/24 02:44 Pulse Oximetry 99 04/11/24 02:44 Oxygen Delivery Me thod Room Air 04/11/24 02:35 MDM - Alcohol Medical Decision Making Patient has normotensive here. He is given a fluid bolus. His hemoglobin is 10. Potassium is 3.3 repleted. Other laboratory is not remarkable, save his alcohol level of 297. He will be allowed discharge to the custody of a sober responsible adult to return for any worsening symptoms. Lab Data 04/11/24 01:11 04/11/24 01:11 Laboratory Results WBC 4.79 10^3/uL (3.29-11.43) 04/11/24 01:11 RBC 3.13 10^6/uL (3.85-5.65) L 04/11/24 01:11 Hgb 10.20 g/dL (11.27-16.99) L 04/11/24 01:11 Hct 31.7 % (37-53) L 04/11/24 01:11 MCV 101.3 fl (82-101) H 04/11/24 01:11 MCH 32.6 pg (27-33) 04/11/24 01:11 MCHC 32.2 g/dL (30-55) 04/11/24 01:11 RDW 16.5 % (12.1-15.1) H 04/11/24 01:11 Plt Count 203 10^3/cmm (157-399) 04/11/24 01:11 MPV 9.8 fL (7.4-10.4) 04/11/24 01:11 Neut % (Auto) 52.3 % 04/11/24 01:11 Lymph % (Auto) 32.4 % 04/11/24 01:11 [place] % (Auto) 10.6 % 04/11/24 01:11 Eos % (Auto) 3.1 % 04/11/24 01:11 Baso % (Auto) 1.0 % 04/11/24 01:11 Neut # (Auto) 2.50 10^3/uL (1.8-7.7) 04/11/24 01:11 Lymph # (Auto) 1.6 10^3/uL (0.8-4.8) 04/11/24 01:11 [place] # (Auto) 0.5 10^3/uL (0.2-0.9) 04/11/24 01:11 Eos # (Auto) 0.2 10^3/uL (0.0-0.8) 04/11/24 01:11 Baso # (Auto) 0.1 10^3/uL (0.0-0.1) 04/11/24 01:11 Nucleated RBC % (auto) 0 % 04/11/24 01:11 Nucleated RBCs # 0.0 /100WBC 04/11/24 01:11 Sodium 143 mmol/L (136-145) 04/11/24 01:11 Potassium 3.3 mmol/L (3.5-5.1) L 04/11/24 01:11 Chloride 104 mmol/L (98-107) 04/11/24 01:11 Carbon Dioxide 26 mmol/L (22-29) 04/11/24 01:11 Anion Gap 16.3 (5-19) 04/11/24 01:11 BUN 16 mg/dL (8-23) 04/11/24 01:11 Creatinine 0.7 mg/dL (0.7-1.2) 04/11/24 01:11 GFR Calculation Not Reportable 04/11/24 01:11 Glucose 87 mg/dL (65-115) 04/11/24 01:11 Calculated Osmolality 297 mOsm/kg (285-295) H 04/11/24 01:11 Calcium 8.5 mg/dL (8.5-10.5) 04/11/24 01:11 Total Bilirubin 0.3 mg/dL (0.15-1.2) 04/11/24 01:11 AST 28 U/L (0-40) 04/11/24 01:11 ALT 15 U/L (0-41) 04/11/24 01:11 Alkaline Phosphatase 112 U/L (40-130) 04/11/24 01:11 Total Protein 5.6 g/dL (6.6-8.7) L 04/11/24 01:11 Albumin 3.2 g/dL (3.5-5.2) L 04/11/24 01:11 Globulin 2.4 g/dL (1.3-4.6) 04/11/24 01:11 Salicylates < 0.3 mg/dL (3-10) L 04/11/24 01:11 Acetaminophen < 5.0 ug/mL (10-30) L 04/11/24 01:11 Ethyl Alcohol 297 mg/dL (0-10) H 04/11/24 01:11 No radiology studies performed this visit Discharge Plan Discharge Patient Disposition: Home Clinical Impression: Alcohol intoxication Condition: Stable Prescriptions: No Action (DME) foot soak basin See Rx Instructions .Route .MEDSUPPLY Qty: 1 0RF Rx Instructions: As directed to HOME (DME) xavier klein. See Rx Instructions .Route .MEDSUPPLY Qty: 1 0RF Rx Instructions: As directed loperamide [Imodium] 2 mg Capsule 2 mg PO Q4H PRN (Reason: Diarrhea) Rx Instructions: administer after each loose stool until symptoms controlled; do not exceed 8 mg per 24 hrs escitalopram oxalate [Lexapro] 5 mg tablet 5 mg PO DAILY Qty: 30 0RF atorvastatin 20 mg tablet 20 mg PO QAM Discharge Orders: Discharge ED (Routine); Ordered 04/11/24 Ordered By: Joey Leon Referrals: Medardo Bowers MD [Primary Care Provider] - 1-3 days Patient Instructions: Alcohol Intoxication (ED), Opioid Safety, Pain Management Activity Restrictions/Additional Instructions: Drink plenty of clear nonalcoholic liquids for the next 48 hours. Avoid ingestion of alcohol. Return for repeated episodes of falling, weakness, etc. despite the above. See your doctor this week. Coding Level of Care Code ED German Professor for Katrin Mike
[2024-04-11 00:35] VITALS: BP 110/70; PULSE 51; RESP 18; O2SAT 97
[2024-04-11] MEDS: sodium chloride 0.9% 1,000 ML 999 ML IV (00:47)
[2024-04-11 01:22] LABS: Basophils # 0.1 10^3/uL (0.0-0.1); Eosinophils # 0.2 10^3/uL (0.0-0.8); Eosinophils % 3.1 %; Hematocrit 31.7 % (37-53); Lymphocytes # 1.6 10^3/uL (0.8-4.8); Lymphocytes % 32.4 %; Mean Corpuscular HGB Conc 32.2 g/dL (30-55); Mean Corpuscular Hemoglobin 32.6 pg (27-33); Mean Corpuscular Volume 101.3 fl (82-101); Mean Platelet Volume 9.8 fL (7.4-10.4); Monocytes # 0.5 10^3/uL (0.2-0.9); Monocytes % 10.6 %; Neutrophils % 52.3 %; Nucleated Red Blood Cells % 0 %; Platelet Count 203 10^3/cmm (157-399); Red Blood Count 3.13 10^6/uL (3.85-5.65); Red Cell Distribution Width 16.5 % (12.1-15.1); White Blood Count 4.79 10^3/uL (3.29-11.43)
[2024-04-11 01:44] LABS: Alanine Aminotransferase 15 U/L (0-41); Albumin Level 3.2 g/dL (3.5-5.2); Alcohol Level 297 mg/dL (0-10); Alkaline Phosphatase 112 U/L (40-130); Anion Gap 16.3 (5-19); Aspartate Amino Transferase 28 U/L (0-40); Blood Urea Nitrogen 16 mg/dL (8-23); Calcium 8.5 mg/dL (8.5-10.5); Carbon Dioxide 26 mmol/L (22-29); Chloride 104 mmol/L (98-107); Creatinine Clr Calc Pharmacy 74.9688; Globulin 2.4 g/dL (1.3-4.6); Glucose 87 mg/dL (65-115); Osmolality Calculated 297 mOsm/kg (285-295); Potassium 3.3 mmol/L (3.5-5.1); Sodium 143 mmol/L (136-145); Total Bilirubin 0.3 mg/dL (0.15-1.2); Total Protein 5.6 g/dL (6.6-8.7)
[2024-04-11 01:45] LABS: Acetaminophen < 5.0 ug/mL (10-30); Salicylate < 0.3 mg/dL (3-10)
[2024-04-11 02:35] VITALS: BP 102/78; PULSE 54; RESP 18; O2SAT 98
[2024-04-11] MEDS: potassium chloride oral liq 20 mEq/15 mL UDC 40 MEQ PO (02:35)
[2024-04-11 02:44] VITALS: BP 102/78; PULSE 60; RESP 18; O2SAT 99
== END 2024-04-11 03:40 | disposition home or self-care (01) ==
PROVIDERS: Emergency Provider Emergency Medicine; PCP Family Medicine
DX: F10.129 Alcohol abuse with intoxication, unspecified (principal); Y90.8 Blood alcohol level of 240 mg/100 ml or more; F17.210 Nicotine dependence, cigarettes, uncomplicated; Z86.73 Personal history of transient ischemic attack (TIA), and cerebral infarction without residual deficits; J44.9 Chronic obstructive pulmonary disease, unspecified
CPT/HCPCS: 36415; 80053; 80307; 85025; 96360; 96361; 99284; J7030

== ENCOUNTER 2024-04-17 04:53 | Emergency (ER) | payer MEDICARE, MEDICAID, SELFPAY ==
[2024-04-17 04:55] VITALS: BP 116/63; PULSE 59; RESP 18; TEMP 36.3; O2SAT 98; BMI 17.7
--- NOTE | 2024-04-17 05:02 | W.ED.ALCOHOL ---
HPI - Alcohol General: Chief Complaint: Alcohol Stated Complaint: ETOH Time Seen by Provider: 04/17/24 05:02 History of Present Illness: Patient presents to the ER and not knowing why he is here other than his significant other called and had him to come here. Patient is his known self at baseline. Patient does have EtOH on board, which is usual. Patient has no other complaints at this time. Related Data Home Medications Medication Instructions Recorded Confirmed atorvastatin 20 mg tablet 20 mg PO QAM 09/14/22 04/14/24 loperamide 2 mg capsule 2 mg PO Q4H PRN Diarrhea 03/11/24 03/11/24 Previous Rx's Medication Instructions Recorded foot soak basin #1 ea 12/09/22 park brace. #1 ea 02/18/23 escitalopram oxalate 5 mg tablet 5 mg PO DAILY #30 tabs 03/11/24 (Lexapro) Allergies Allergy/AdvReac Type Severity Reaction Status Date / Time corn Allergy ADR-Nausea Verified 04/14/24 10:01 [place]nee Allergy Uknown Verified 04/14/24 10:01 pear Allergy ALGY-Rash Verified 04/14/24 10:01 Penicillins Allergy ALGY-Difficulty Verified 04/14/24 10:01 Breathing Review of Systems General: Reports: 10 or more systems reviewed and unremarkable except in HPI and below PFSH ED PFSH: Medical History Alcoholic intoxication Peripheral vascular disease Alcohol withdrawal Alcoholic ketoacidosis Hypomagnesemia Alcohol abuse Generalized weakness Depression Anxiety Myocardial infarction Alcoholism Pancreatitis Status post chemoradiation Cholelithiasis Dizziness Anal cancer COPD (chronic obstructive pulmonary disease) Hypertension CVA (cerebral vascular accident) DVT (deep venous thrombosis) Acute dehydration Vomiting Surgical History Status post laparoscopic cholecystectomy (11/13/20) Hx of non-cataract eye surgery Hx of cataract extraction History of ankle surgery History of tonsillectomy Status post colonoscopy Family History Other Family history non-contributory Social History Smoking and tobacco/nicotine status: current every day tobacco/nicotine user cigarettes Packs smoked per day: 0.5 Alcohol intake: current Alcohol intake frequency: 3 or more drinks per day Substance/Drug Use: never Household members: family Housing: House Physical Exam Const: COMMON NORMALS: no acute distress, average body habitus, patient oriented x3, no limitations, healthy appearing, alert and well nourished HENMT: COMMON NORMALS: normocephalic, atraumatic, hearing grossly normal bilaterally, external ears normal, Normal external nose present and moist oral mucous membranes HEAD & SCALP: normocephalic and atraumatic NOSE: Normal external nose present EXTERNAL EAR: Yes external ears normal Neck/C-Spine: COMMON NORMALS: no JVD Chest: COMMONS NORMALS: normal inspection of the chest and normal palpation of entire chest wall Resp: COMMON NORMALS: normal respiratory effort, No retractions, No use of accessory muscles and clear to auscultation bilaterally AUSCULTATION: clear to auscultation bilaterally Cardio: COMMON NORMALS: no JVD, regular rate, regular rhythm, S1 normal heart sound present, S2 normal heart sound present, No gallops present (Cardio), No clicks present (Cardio), No murmurs present (Cardio) and No rub (Cardio) RATE: regular rate RHYTHM: regular rhythm HEART SOUNDS: S1 normal heart sound present and S2 normal heart sound present GI: COMMON NORMALS: Normal to inspection, nondistended, normoactive bowel sounds present, Soft to palpation, non-tender, No hepatosplenomegaly present and no masses PALPATION: Yes Soft to palpation and Yes No hepatosplenomegaly present Neuro: COMMON NORMALS: patient oriented x3 SENSORIUM/ORIENTATION: Yes alert Course Vital Signs: Vital signs: Vital Signs Temperature 97.4 F L 04/17/24 04:55 Pulse Rate 59 L 04/17/24 04:55 Respiratory Rate 18 04/17/24 04:55 Blood Pressure 116/63 04/17/24 04:55 Pulse Oximetry 98 04/17/24 04:55 Oxygen Delivery Me thod Room Air 04/17/24 04:55 MDM - Alcohol Medical Decision Making Patient does not know why he is here he has no complaints of. Patient is intoxicated but is alert and oriented and coherent as is his usual. Patient be discharged. Medical Records I reviewed the patient's medical records. Lab Data I reviewed the patient's lab results. No radiology studies performed this visit Discharge Plan Discharge Patient Disposition: Home Clinical Impression: Alcohol intoxication Qualifiers: Complication of substance-induced condition: uncomplicated Qualified Code(s): F10.920 - Alcohol use, unspecified with intoxication, uncomplicated Condition: Stable Prescriptions: No Action (DME) foot soak basin See Rx Instructions .Route .MEDSUPPLY Qty: 1 0RF Rx Instructions: As directed to HOME (DME) xavier klein. See Rx Instructions .Route .MEDSUPPLY Qty: 1 0RF Rx Instructions: As directed loperamide [Imodium] 2 mg Capsule 2 mg PO Q4H PRN (Reason: Diarrhea) Rx Instructions: administer after each loose stool until symptoms controlled; do not exceed 8 mg per 24 hrs escitalopram oxalate [Lexapro] 5 mg tablet 5 mg PO DAILY Qty: 30 0RF atorvastatin 20 mg tablet 20 mg PO QAM Discharge Orders: Discharge ED (Routine); Ordered 04/17/24 Ordered By: Jackson Tamayo Referrals: Medardo Bowers MD [Primary Care Provider] - 1 week Patient Instructions: Alcohol Intoxication Activity Restrictions/Additional Instructions: Thank you for choosing [facility] for your healthcare needs today. Please realize that you were seen in the emergency department and that we are providing you with an emergency medical screening exam and this may not be a complete and all exclusive of all testing and/or medical workup we may need to determine your element or severity of your illness. It is very important that you follow-up as instructed with your primary care provider or specialist for the additional evaluation and to discuss your medical treatment plan. You may return to the emergency department should you have concerns or if your condition changes or worsens in any way. Coding Level of Care Code ED World Travel Counselor for Katrin Mike
[2024-04-17 05:09] VITALS: BP 116/65; PULSE 72; O2SAT 91
== END 2024-04-17 05:13 | disposition home or self-care (01) ==
PROVIDERS: Emergency Provider Emergency Medicine; PCP Family Medicine
DX: F10.920 Alcohol use, unspecified with intoxication, uncomplicated (principal); F17.210 Nicotine dependence, cigarettes, uncomplicated; Z86.73 Personal history of transient ischemic attack (TIA), and cerebral infarction without residual deficits; J44.9 Chronic obstructive pulmonary disease, unspecified; I10 Essential (primary) hypertension; C21.0 Malignant neoplasm of anus, unspecified
CPT/HCPCS: 99283

== ENCOUNTER 2024-04-21 19:15 | Inpatient (IN) | payer MEDICARE, MEDICAID, SELFPAY ==
[2024-04-21 19:29] VITALS: BP 62/36; PULSE 104; RESP 16; TEMP 36.4; O2SAT 93; BMI 17.7
--- NOTE | 2024-04-21 19:56 | ECG_ITS ---
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 Measurements Intervals [place] Rate: 106 P: 0 [place]: 0 QRS: 33 QRSD: 86 T: 62 QT: 391 QTc: 521 Interpretive Statements ATRIAL FIBRILLATION WITH RAPID VENTRICULAR RESPONSE MODERATE ST DEPRESSION [0.05+ mV ST DEPRESSION] Compared to ECG 03/10/2024 20:30:29 ST (T wave) deviation now present Sinus rhythm no longer present Myocardial infarct finding no longer present Electronically Signed On 04-23-2024 09:04:28 VESSEL CAPTAIN by Jhonathan Fernandez M.D. [id number]
[2024-04-21 20:00] VITALS: BP 92/64; PULSE 124; RESP 28; O2SAT 95
--- NOTE | 2024-04-21 20:02 | ED_ITS ---
HPI - Nausea/Vomiting/Diarrhea 2 General: Chief complaint: Nausea/Vomiting/Diarrhea Stated complaint: Diarria,Headache Time Seen by Provider: 04/21/24 19:48 History of Present Illness: 73-year-old man with history of alcohol abuse, anxiety, depression, coronary artery disease, pancreatitis who presents to the emergency room with weakness, nausea, diarrhea. He has had diarrhea for about a week. Also complains of rash on his buttocks. No focal abdominal pain. Related Data Home Medications Medication Instructions Recorded Confirmed atorvastatin 20 mg tablet 20 mg PO QAM 09/14/22 04/14/24 loperamide 2 mg capsule 2 mg PO Q4H PRN Diarrhea 03/11/24 03/11/24 Previous Rx's Medication Instructions Recorded foot soak basin #1 ea 12/09/22 park brace. #1 ea 02/18/23 escitalopram oxalate 5 mg tablet 5 mg PO DAILY #30 tabs 03/11/24 (Lexapro) Allergies Allergy/AdvReac Type Severity Reaction Status Date / Time corn Allergy ADR-Nausea Verified 04/21/24 19:35 [place] Allergy Uknown Verified 04/21/24 19:35 pear Allergy ALGY-Rash Verified 04/21/24 19:35 Penicillins Allergy ALGY-Difficulty Verified 04/21/24 19:35 Breathing Review of Systems 2 Narrative: Constitutional symptoms: Negative except as documented in HPI. Skin symptoms: Negative except as documented in HPI. Eye symptoms: Negative except as documented in HPI. ENMT symptoms: Negative except as documented in HPI. Respiratory symptoms: Negative except as documented in HPI. Cardiovascular symptoms: Negative except as documented in HPI. Gastrointestinal symptoms: Negative except as documented in HPI. Genitourinary symptoms: Negative except as documented in HPI. Musculoskeletal symptoms: Negative except as documented in HPI. Neurologic symptoms: Negative except as documented in HPI. Psychiatric symptoms: Negative except as documented in HPI. Endocrine symptoms: Negative except as documented in HPI. PFSH ED 2 PFSH: Medical History (Updated 04/21/24 @ 22:49 by Cyn Giles MD) Psychiatric care Alcoholic intoxication Peripheral vascular disease Alcohol withdrawal Alcoholic ketoacidosis Hypomagnesemia Alcohol abuse Generalized weakness Depression Anxiety Myocardial infarction Alcoholism Pancreatitis Status post chemoradiation Cholelithiasis Dizziness Anal cancer COPD (chronic obstructive pulmonary disease) Hypertension CVA (cerebral vascular accident) DVT (deep venous thrombosis) Acute dehydration Vomiting Surgical History Status post laparoscopic cholecystectomy (11/13/20) Hx of non-cataract eye surgery Hx of cataract extraction History of ankle surgery History of tonsillectomy Status post colonoscopy Family History Other Family history non-contributory Social History Smoking and tobacco/nicotine status: current every day tobacco/nicotine user cigarettes Packs smoked per day: 0.5 Alcohol intake: current Alcohol intake frequency: 3 or more drinks per day Substance/Drug Use: never Household members: family Housing: House Physical Exam 2 Narrative: EXAM NARRATIVE: General: Alert, no acute distress. Skin: Warm, dry. Diffuse area of the low back buttocks and upper legs of erythema, induration and warmth. This looks like it may initially have been some sort of decubital/irritation from diarrhea but appears to be a cellulitis at this point. Head: Normocephalic, atraumatic. Neck: Supple, trachea midline. Eye: Extraocular movements are intact. Ears, nose, mouth and throat: mucosa moist. Cardiovascular: Regular, tachycardic Respiratory: Lungs are clear to auscultation, respirations are non-labored, breath sounds are equal, Symmetrical chest wall expansion. Gastrointestinal: Soft, Nontender, Non distended Musculoskeletal: Normal ROM, no deformity. Neurological: Alert and oriented, No focal neurological deficit observed. Psychiatric: Cooperative, appropriate mood & affect. Course 2 Vital Signs: Vital signs: Vital Signs Temperature 97.5 F L 04/21/24 19:29 Pulse Rate 104 H 04/21/24 19:29 Respiratory Rate 16 04/21/24 19:29 Blood Pressure 62/36 04/21/24 19:29 Pulse Oximetry 93 04/21/24 19:29 Oxygen Delivery Me thod Room Air 04/21/24 19:29 MDM - Nausea/Vomiting/Diarrhea Medical Decision Making Medical decision making: Differential diagnosis for patient presenting with generalized weakness including but not limited to and based on the above HPI, review of systems and physical exam: Sepsis. Dehydration. Renal failure. Electrolyte abnormalities. Anemia. Congestive heart failure. Hypotension. Coronary syndrome. Hepatitis. Cirrhosis. Infections such as pneumonia, urinary tract infection, [place]ick bourne illness, Cellulitis, Viral infections including influenza and Covid-19. Workup: labwork and lab/exam driven imaging ordered to evaluate, rule in and rule out above pathologies. Lab Review: Laboratory results were reviewed and interpreted by myself the emergency room physician. Leukocytosis with a white count 13,000. Hemoglobin stable 11.3. BUN/creatinine stable at 17 and 0.7. Lactate is very elevated at 12. I reviewed the patient's medical record. Consultation: I spoke with Dr. Tracy who agrees to admission of the patient. I recommended ICU admission because the patient has a history of withdrawals and is septic and hypotensive at this time. Assessment and plan: Hypotension Sepsis Diarrhea Dehydration Alcohol intoxication Alcohol dependence History of alcohol withdrawals ?Likely source is cellulitis. -1.5 L normal saline bolus. 30 mL/kg. -Broad-spectrum antibiotics were administered. Vancomycin and cefepime. -Sepsis quality measures. -Lactic acid with a reflex was ordered. -Blood cultures were ordered. -I discussed the patient with the hospitalist on-call who is admitting the patient. - Discussed findings and plan with patient. Answered any questions. - All laboratory values were reviewed and interpreted personally by myself, the ER physician - All imaging was reviewed and interpreted personally by myself, the ER physician. - Evaluation and treatment of this problem were appropriate in the emergency setting Lab Data 04/21/24 20:36 04/21/24 20:36 Laboratory Results WBC 13.22 10^3/uL (3.29-11.43) H 04/21/24 20:36 RBC 3.51 10^6/uL (3.85-5.65) L 04/21/24 20:36 Hgb 11.30 g/dL (11.27-16.99) 04/21/24 20:36 Hct 34.8 % (37-53) L 04/21/24 20:36 MCV 99.1 fl (82-101) 04/21/24 20:36 MCH 32.2 pg (27-33) 04/21/24 20:36 MCHC 32.5 g/dL (30-55) 04/21/24 20:36 RDW 16.6 % (12.1-15.1) H 04/21/24 20:36 Plt Count 195 10^3/cmm (157-399) 04/21/24 20:36 MPV 9.8 fL (7.4-10.4) 04/21/24 20:36 Lymph % (Auto) Not Reportable 04/21/24 20:36 [place] % (Auto) Not Reportable 04/21/24 20:36 Lymph # (Auto) Not Reportable 04/21/24 20:36 [place] # (Auto) Not Reportable 04/21/24 20:36 Total Counted 100 (0-100) 04/21/24 20:36 Atypical Lymphs % Not Reportable 04/21/24 20:36 Absolute Neutrophils 11.8 10^3/cmm (1.4-6.5) H 04/21/24 20:36 Segmented Neutrophils 70 % 04/21/24 20:36 Band Neutrophils 19.0 % 04/21/24 20:36 Lymphocytes (Manual) 6 % 04/21/24 20:36 Monocytes (Manual) 5.0 % 04/21/24 20: Absolute Monocytes 0.7 10^3/cmm (0.1-0.6) H 04/21/24 20:36 Eosinophils (Manual) 0 % 04/21/24 20:36 Absolute Eosinophils 0.0 10^3/cmm (0.0-0.7) 04/21/24 20:36 Basophils (Manual) 0.0 % 04/21/24 20:36 Absolute Basophils 0.0 10^3/cmm (0.0-0.2) 04/21/24 20:36 Platelet Estimate Normal (Normal) 04/21/24: ESR 25 mm/hr (0-10) H 04/21/24 22:00 Specimen Type Arterial 04/21/24:02 Sample Site Brachial, right 04/21/24 22:02 ABG pH 7.38 (7.35-7.45) 04/21/24 22:02 ABG pCO2 29.0 mmHg (35-45) L 04/21/24 22:02 ABG pO2 66.4 mmHg (80.0-100.0) L 04/21/24 22:02 ABG HCO3 17.0 mmol/L (22-26) L 04/21/24 22: ABG O2 Saturation 91.7 04/21/24 22:02 ABG Base Excess -6.9 mmol/L (-2.0-2.0) L 04/21/24 22:02 Phil Test Pos 04/21/24 22:02 A-a O2 Gradient 6.2 mmHg (5-10) 04/21/24 22:02 Hematocrit 35.4 % (42-52) L 04/21/24 22:02 Hgb O2 Saturation 89.3 % (95-100) L 04/21/24 22:02 Carboxyhemoglobin 1.5 %THgb (0.4-20.1) 04/21/24 22:02 Methemoglobin 1.1 % (0.4-1.5) 04/21/24 22:02 Total Hemoglobin 11.5 g/dL (14-18) L 04/21/24 22:02 Sodium 135.0 mmol/L (131-143) 04/21/24 22:02 Potassium 3.6 mmol/L (3.5-5.0) 04/21/24 22:02 Glucose 81.0 mg/dL (70-115) 04/21/24 22:02 Ionized Calcium 1.1 mmol/L (1.1-1.4) 04/21/24 22:02 O2 Delivery Device Room air 04/21/24 22:02 Beef Specialist ID [email or web address] 04/21/24 22:02 Sodium 134 mmol/L (136-145) L 04/21/24 20:36 Potassium 3.4 mmol/L (3.5-5.1) L 04/21/24 20:36 Chloride 94 mmol/L (98-107) L 04/21/24 20:36 Carbon Dioxide 13 mmol/L (22-29) L 04/21/24 20:36 Anion Gap 30.4 (5-19) H 04/21/24 20:36 BUN 17 mg/dL (8-23) 04/21/24 20:36 Creatinine 0.7 mg/dL (0.7-1.2) 04/21/24 20:36 GFR Calculation Not Reportable 04/21/24 20:36 Glucose 99 mg/dL (65-115) 04/21/24 20:36 Calculated Osmolality 280 mOsm/kg (285-295) L 04/21/24 20:36 Lactic Acid 12.0 mmol/L (0.5-2.2) H* 04/21/24 20:36 Calcium 8.2 mg/dL (8.5-10.5) L 04/21/24 20:36 Total Bilirubin 0.7 mg/dL (0.15-1.2) 04/21/24 20:36 AST 25 U/L (0-40) 04/21/24 20:36 ALT 8 U/L (0-41) 04/21/24 20:36 Alkaline Phosphatase 94 U/L (40-130) 04/21/24 20:36 C-Reactive Protein 185.1 mg/L (0.0-4.9) H 04/21/24 22:00 Total Protein 5.9 g/dL (6.6-8.7) L 04/21/24 20:36 Albumin 3.0 g/dL (3.5-5.2) L 04/21/24 20:36 Globulin 2.9 g/dL (1.3-4.6) 04/21/24 20:36 Lipase 9 U/L (13-60) L 04/21/24 22:00 Ethyl Alcohol 108 mg/dL (0-10) H 04/21/24 20:36 No radiology studies performed this visit Discharge Plan Discharge Patient Disposition: Admitted As Inpatient Clinical Impression: Sepsis, Alcohol abuse, Diarrhea, Cellulitis of buttock, Hypotension Alcohol intoxication Qualifiers: Complication of substance-induced condition: uncomplicated Qualified Code(s): F 10.920 - Alcohol use, unspecified with intoxication, uncomplicated Condition: Stable Coding Level of Care Code ED Tablet Technician for Katrin Mike
[2024-04-21 20:46] LABS: Hematocrit 34.8 % (37-53); Mean Corpuscular HGB Conc 32.5 g/dL (30-55); Mean Corpuscular Hemoglobin 32.2 pg (27-33); Mean Corpuscular Volume 99.1 fl (82-101); Mean Platelet Volume 9.8 fL (7.4-10.4); Platelet Count 195 10^3/cmm (157-399); Red Blood Count 3.51 10^6/uL (3.85-5.65); Red Cell Distribution Width 16.6 % (12.1-15.1); White Blood Count 13.22 10^3/uL (3.29-11.43)
[2024-04-21] MEDS: sodium chloride 0.9% 1,000 ML 999 ML IV (20:46)
[2024-04-21] MEDS: ondansetron 2 mg/ML SDV 2 mL 4 MG IVP (20:46)
[2024-04-21 21:00] VITALS: BP 92/60; PULSE 101; RESP 23; O2SAT 95
[2024-04-21 21:15] LABS: Alanine Aminotransferase 8 U/L (0-41); Alcohol Level 108 mg/dL (0-10); Alkaline Phosphatase 94 U/L (40-130); Anion Gap 30.4 (5-19); Aspartate Amino Transferase 25 U/L (0-40); Blood Urea Nitrogen 17 mg/dL (8-23); Calcium 8.2 mg/dL (8.5-10.5); Carbon Dioxide 13 mmol/L (22-29); Chloride 94 mmol/L (98-107); Creatinine Clr Calc Pharmacy 70.1498; Globulin 2.9 g/dL (1.3-4.6); Glucose 99 mg/dL (65-115); Osmolality Calculated 280 mOsm/kg (285-295); Potassium 3.4 mmol/L (3.5-5.1); Sodium 134 mmol/L (136-145); Total Bilirubin 0.7 mg/dL (0.15-1.2); Total Protein 5.9 g/dL (6.6-8.7)
[2024-04-21 21:36] VITALS: BP 90/63; PULSE 107; O2SAT 93
[2024-04-21 21:37] LABS: Absolute Segmented Neutrophil 9.3 10/cmm (1.6-7.1); Band Neutrophils Absolute 2.5 10^3/cmm (0.0-1.2); Eosinophils 0 %; Lymphocytes 6 %; Monocytes Absolute 0.7 10^3/cmm (0.1-0.6); Segmented Neutrophils 70 %; Slide Review Slide Review Perform; Total Cells Counted 100 (0-100)
[2024-04-21 21:38] LABS: Absolute Neutrophil 11.8 10^3/cmm (1.4-6.5); Platelet Estimate Normal (Normal)
[2024-04-21 22:00] VITALS: BP 103/62; PULSE 106; RESP 30; O2SAT 94
[2024-04-21] MEDS: thiamine 100 mg/mL 2mL SDV IVP (22:13)
[2024-04-21 22:14] LABS: ABG PH Result 7.38 (7.35-7.45); Alveolar-Arterial Oxygen Gradi 6.2 mmHg (5-10); Arterial Blood Gas Hematocrit 35.4 % (42-52); Base Excess ABG -6.9 mmol/L (-2.0-2.0); Blood Gas Allen Test Pos; Blood Gas Sample Site Brachial, right; Blood Gas Sample Type Arterial; Carboxyhemoglobin 1.5 %THgb (0.4-20.1); HGB O2 Sat 89.3 % (95-100); Ionized Calcium Level - ABG 1.1 mmol/L (1.1-1.4); Methemoglobin 1.1 % (0.4-1.5); Oxygen Device ROOM AIR; Oxygen Saturation ABG 91.7; PO2 ABG 66.4 mmHg (80.0-100.0); Potassium Level - ABG 3.6 mmol/L (3.5-5.0); Total Hemoglobin 11.5 g/dL (14-18)
[2024-04-21] MEDS: folic acid 1 mg Tablet PO (22:16)
[2024-04-21 22:23] LABS: Erythrocyte Sedimentation Rate 25 mm/hr (0-10)
[2024-04-21 22:25] VITALS: BP 98/65; PULSE 111; O2SAT 93
--- NOTE | 2024-04-21 22:36 | P.HP_ITS ---
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 common femoral vein DVT in 02/2019, Emphysema, Anxiety/Depression, severe alcohol use d/o, who presents to the ED on 04/22/2024 with n/v/diarrhea. He states that he had low energy, poor appetite, and he did not want to get out of bed because he wanted to sleep for most of the day yesterday. He states that he has had a diaper rash for several weeks, and he has been trying to treat it w/ constarch powder, baby powder and ointment. He states that he has been losing weight, but gained 1lb when he went to see his PCP last week. He states that he has been having episodes of n/v/diarrhea for the last 3-4weeks. The last time he had diarrhea was when he had chemo for his anal cancer. He states that he vomits usally in the morning, and he has diarrheal episodes twice a day. The stools are loose and not voluminous. He states sometimes the urge is so sudden that he has had accidents before reaching the bathrooms, and the distance between the bed and the bathroom is about 10feet. He states that the n/v/diarrhea and diaper rash all occurred around the same time. He denies f/c, palpitations, abdominal pain, melena, hematochezia, dysuria, hematuria, increased urinary urgency/frequency. His last drink was the day before he presented to the ED In the ED, his vital signs were significant for hypertension of 62/36 mmHg, tachycardia, and tachypnea. His labs are significant for leukocytosis of 13.2, his CXR showed no acute cardiopulmonary abnormalities. He was given 2L NS, Vanc, Cefepime, folate and thiamine. Review of Systems 2 Const: Reports: change in appetite (poor), fatigue and malaise; Denies: fever(s) or chills Eyes: Denies: change in vision or blurry vision ENMT: Reports: nasal discharge (chronic - due to allergies) and nasal congestion (chronic - due to allergies); Denies: odynophagia, ear or mastoid pain or ear discharge Card: Denies: chest pain, palpitations or lightheadedness Resp: Denies: dyspnea, non-productive cough or wheezing GI: Reports: nausea, vomiting and diarrhea; Denies: abdominal pain, hematochezia or melena : Denies: difficulty urinating, dysuria, urinary frequency, urinary urgency or hematuria Musc: Reports: joint pain ( arthritis in hands, L. ankle, T-spine - chronic) and other (no myalgias) Skin/Breast: Reports: rash Neuro: Reports: dizziness (chronic - due to inner ear issue from chronic childhood ear infections. ) and other (no syncope) Psych: Reports: anxiety and depression; Denies: suicidal ideation or homicidal ideation Endo: Reports: cold intolerance; Denies: heat intolerance Alberto/Lymph: Reports: easy bruising and easy bleeding Medications/Allergies Home Medications Medication Instructions Recorded Confirmed Last Taken Type atorvastatin 20 mg tablet 20 mg PO QAM 09/14/22 04/14/24 03/10/24 History foot soak basin #1 ea 12/09/22 03/11/24 Unknown Rx park brace. #1 ea 02/18/23 03/11/24 Unknown Rx escitalopram oxalate 5 mg tablet 5 mg PO DAILY #30 tabs 03/11/24 Unknown Rx (Lexapro) loperamide 2 mg capsule 2 mg PO Q4H PRN Diarrhea 03/11/24 03/11/24 Unknown History Allergies Allergy/AdvReac Type Severity Reaction Status Date / Time corn Allergy ADR-Nausea Verified 04/21/24 19:35 qagan tayagungin Allergy Uknown Verified 04/21/24 19:35 pear Allergy ALGY-Rash Verified 04/21/24 19:35 Penicillins Allergy ALGY-Difficulty Verified 04/21/24 19:35 Breathing PFSH Acute 2 PFSH: Medical History Psychiatric care Alcoholic intoxication Peripheral vascular disease Alcohol withdrawal Alcoholic ketoacidosis Hypomagnesemia Alcohol abuse Generalized weakness Depression Anxiety Myocardial infarction Alcoholism Pancreatitis Status post chemoradiation Cholelithiasis Dizziness Anal cancer COPD (chronic obstructive pulmonary disease) Hypertension CVA (cerebral vascular accident) DVT (deep venous thrombosis) Acute dehydration Vomiting Surgical History Status post laparoscopic cholecystectomy (11/13/20) Hx of non-cataract eye surgery Hx of cataract extraction History of ankle surgery History of tonsillectomy Status post colonoscopy Family History (Updated 04/22/24 @ 06:20 by An Tracy MD) Mother Alzheimer's dementia Stomach cancer Father Throat cancer Other Family history non-contributory Social History Smoking and tobacco/nicotine status: current every day tobacco/nicotine user cigarettes Packs smoked per day: 0.5 Alcohol intake: current Alcohol intake frequency: 3 or more drinks per day Substance/Drug Use: never Household members: family Housing: House Vitals/I&O/Wt Last Vital Signs Temp 97.5 F L 04/21/24 19:29 Pulse 104 H 04/21/24 19:29 Resp 16 04/21/24 19:29 BP 62/36 04/21/24 19:29 Pulse Ox 93 04/21/24 19:29 O2 Del Method Room Air 04/21/24 19:29 Weight last 48 hrs Weight 59.421 kg Physical Exam 2 Const: GENERAL APPEARANCE: cooperative and comfortable O RIENTATION/CONSCIOUSNESS: Yes awake, Yes oriented to person, Yes oriented to place and Yes oriented to time HENMT: HEAD & SCALP: normocephalic and atraumatic NOSE: Normal external nose present EXTERNAL EAR: Yes external ears normal MOUTH: Normal oral and palatal mucosa present THROAT: posterior oropharynx normal Eye: OTHER: PERRL, EOMI, normal conjunctiva b/l Neck/C-Spine: GENERAL: Yes normal visual inspection and Yes trachea midline THYROID: Thyroid normal CAROTIDS: No bruit CERVICAL SPINE: Yes cervical ROM normal Lymph: OTHER: no cervical or supraclavicular LAD Resp: OTHER: decreased breath sounds and crackles in the R. lower lung lobe. Cardio: OTHER: RRR, no m/r/g or clicks GI: OTHER: BS+, NT, ND, no guarding, no rigidity, no rebound tenderness, no hepatosplenomegaly. Extremity: GENERAL: No clubbing, No cyanosis and No edema Neuro: CRANIAL NERVES: Yes CN normal except as noted SPEECH: speech normal SENSORY EXAM: No sensory level loss detected MOTOR EXAM: 5/5 motor strength present throughout and Normal motor muscle tone present throughout Psych: ATTITUDE: Yes calm and Yes engaged ACTIVITY/MOTOR BEHAVIOR: Yes appropriate eye contact SPEECH: Yes normal speech MOOD & AFFECT: Yes euthymic mood THOUGHT PROCESS: Normal thought process present THOUGHT CONTENT: Yes Normal thought content present Skin: NARRATIVE SKIN EXAM: non-blanching b/l erythema and induration of the the gluteal muscles. Tender to palpation bilaterally. 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 common femoral vein DVT in 02/2019, Emphysema, Anxiety/Depression, severe alcohol use d/o, who presents to the ED on 04/22/2024 with n/v/diarrhea. #Severe Sepsis - Possibly due to Cellulitis vs Gastroenteritis. Will get CT abd/pelvis and CT chest w/ contrast based on results of his morning labs and lactate. I would like a CT chest b/c my physical findings are different from his CXR in the ED. - s/p 2L NS bolus in the ED. Will give another 1L. - F/u BCx. - Continue Cefepime and Vanc. Will add flagyl. #Cellulitis: See Severe sepsis section #Gastroenteritis: See Severe Sepsis section. C. diff was ordered in the ED, but he has not had a BM since admission. #Severe alcohol use/do: Continue thiamine, folate. Ordered [facility] protocol - monitor for alcohol w/drawal. #Lactic acidosis: Improving. Continue to monitor. # Hypokalemia: Ordered 40mEQ of KCl po x 1. #Anxiety/Depression: On Lexapro. Consider increasing it to 10mg daily. DVT ppx: Lovenox GI ppx: PPI Attestations 2 Medical Necessity Statement*: Patient needs to remain hospitalized for severe sepsis due to potentially multiple causes. Time Spent in Patient Care: >70mins was spent on chart review, patient history/physical, lab/image review, plan formulation and coordination of care. Diagnoses Alcohol use disorder F10.90 Severe sepsis A41.9; R65.20 Cellulitis of buttock L03.317
[2024-04-21 22:38] LABS: C Reactive Protein 185.1 mg/L (0.0-4.9); Lipase 9 U/L (13-60)
--- NOTE | 2024-04-21 22:58 | XRR_ITS ---
PROCEDURE INFORMATION: Exam: XR Chest Exam date and time: 04/21/2024 11:09 PM Age: 73 years old Clinical indication: Shortness of breath; Additional info: Weakness TECHNIQUE: Imaging protocol: Radiologic exam of the chest. Views: 1 view. COMPARISON: CR (CHEST, ) 03/10/2024 8:11 PM FINDINGS: Lungs: Unremarkable. No consolidation. Pleural spaces: Unremarkable. No pleural effusion. No pneumothorax. Heart/Mediastinum: Stable cardiomegaly. Bones/joints: Degenerative changes involve the spine and right shoulder. Old rib fractures present. XR/XR chest 1V portable [id number] IMPRESSION: No acute abnormality.
[2024-04-21] MEDS: cefepime 2,000 mg SDV 2000 MG IVP (23:32)
[2024-04-21] MEDS: VANCOMYCIN ADD-Vantage 1,000 MG in 0.9% NaCl ADD-Vantage 250 ML 250 MG IV (23:32)
[2024-04-21] MEDS: sodium chloride 0.9% 500 ML 999 ML IV (23:38)
[2024-04-22] VITALS (36 sets, daily range): BP systolic 93–134; BP diastolic 63–82; PULSE 64–133; RESP 14–31; TEMP 36.1–36.6; O2SAT 88–98; BMI 17.4; BMI 17.6
[2024-04-22 00:14] LABS: Reflex Lactate Order REFLEX LACTIC ORDERD
[2024-04-22] MEDS: enoxaparin 40 mg/0.4 mL Syringe SUBCUT (06:19)
[2024-04-22] MEDS: sodium chloride 0.9% 1,000 ML 500 ML IV (06:20)
[2024-04-22 06:49] LABS: Bilirubin Urine 1+ (Negative); Blood Urine Negative (Negative); Glucose Urine UA Negative (Normal); Ketones Urine Negative (Negative); Leukocyte Esterase Urine Trace (Negative); Nitrate Urine Negative (Negative); Protein Urine 2+ (Negative); Urine Appearance Cloudy (CLEAR)
[2024-04-22 06:54] LABS: Bacteria Urine None Seen /hpf; Hyaline Casts Urine 17.37 /lpf; WBC Urine 0-5 /hpf (0-5)
--- NOTE | 2024-04-22 07:08 | PHA.VACGOAL ---
Vancomycin Goal - Goal Vancomycin Goal:: 15-20 mg/L Vancomycin Indication:: Other (Sepsis) - Therapy Current therapy:: Cefepime Day of therpy:: Day [1]of [] . Actual body weight (kg): 59 kg - Data Labs: WBC 13.22 10^3/uL (3.29-11.43) H 04/21/24 20:36 RBC 3.51 10^6/uL (3.85-5.65) L 04/21/24 20:36 Hgb 11.30 g/dL (11.27-16.99) 04/21/24 20:36 Hct 34.8 % (37-53) L 04/21/24 20:36 MCV 99.1 fl (82-101) 04/21/24 20:36 MCH 32.2 pg (27-33) 04/21/24 20:36 MCHC 32.5 g/dL (30-55) 04/21/24 20:36 RDW 16.6 % (12.1-15.1) H 04/21/24 20:36 Sodium 134 mmol/L (136-145) L 04/21/24 20:36 Potassium 3.4 mmol/L (3.5-5.1) L 04/21/24 20:36 Chloride 94 mmol/L (98-107) L 04/21/24 20:36 Carbon Dioxide 13 mmol/L (22-29) L 04/21/24 20:36 Anion Gap 30.4 (5-19) H 04/21/24 20:36 BUN 17 mg/dL (8-23) 04/21/24 20:36 Creatinine 0.7 mg/dL (0.7-1.2) 04/21/24 20:36 GFR Calculation Not Reportable 04/21/24 20:36 Treatment plan:: new consult Regimen:: New start vancomycin for cellulitis/sepsis. Received 1000 mg load dose in the ER. Started on maintenance dose of 750 mg q12h based on population based pharmacokinetic nomogram.
[2024-04-22] MEDS: potassium chloride ER 20 mEq Tablet 40 MEQ PO (07:11)
[2024-04-22] MEDS: pantoprazole DR 40 mg Tablet PO (07:12)
[2024-04-22] MEDS: thiamine 100 mg/mL 2mL SDV IM (07:12)
[2024-04-22] MEDS: VANCOMYCIN ADD-Vantage 750 MG in 0.9% NaCl ADD-Vantage 250 ML 250 MG IV ×2 (07:29→22:28)
[2024-04-22 07:30] LABS: Basophils # 0.1 10^3/uL (0.0-0.1); Basophils % 0.7 %; Eosinophils # 0.1 10^3/uL (0.0-0.8); Eosinophils % 0.7 %; Hematocrit 34.7 % (37-53); Lymphocytes # 0.9 10^3/uL (0.8-4.8); Lymphocytes % 10.2 %; Mean Corpuscular HGB Conc 31.7 g/dL (30-55); Mean Corpuscular Hemoglobin 33.1 pg (27-33); Mean Corpuscular Volume 104.5 fl (82-101); Monocytes # 0.6 10^3/uL (0.2-0.9); Monocytes % 6.2 %; Neutrophils # 7.24 10^3/uL (1.8-7.7); Neutrophils % 81.6 %; Nucleated Red Blood Cells % 0 %; Platelet Count 150 10^3/cmm (157-399); Red Blood Count 3.32 10^6/uL (3.85-5.65); Red Cell Distribution Width 16.4 % (12.1-15.1); White Blood Count 8.86 10^3/uL (3.29-11.43)
[2024-04-22 07:40] LABS: INR 1.01 (0.8-1.2); Partial Thromboplastin Time 39.5 SECONDS (23.9-36.7)
[2024-04-22 07:44] LABS: UA Slide Review UA Slide Review Perf; Urine Color Orange (Yellow)
[2024-04-22 07:45] LABS: Add Urine Culture? No; Amorphous Sediment Urine 1+ /hpf; Coarse Granular Casts Urine 0-4 /lpf
[2024-04-22 07:47] LABS: Alanine Aminotransferase 8 U/L (0-41); Blood Urea Nitrogen 21 mg/dL (8-23); Carbon Dioxide 24 mmol/L (22-29); Chloride 101 mmol/L (98-107); Creatinine Clr Calc Pharmacy 69.6528; Gamma Glutamyl Transferase 14 U/L (8-61); Glucose 83 mg/dL (65-115); Magnesium 1.4 mg/dL (1.7-2.3); Osmolality Calculated 286 mOsm/kg (285-295); Phosphorus 2.9 mg/dL (2.5-4.5); Sodium 137 mmol/L (136-145)
[2024-04-22 07:58] LABS: Anion Gap 16.3 (5-19); Aspartate Amino Transferase 21 U/L (0-40); Lactate Dehydrogenase 229 U/L (135-225); Potassium 4.3 mmol/L (3.5-5.1)
[2024-04-22 07:59] LABS: Lactate (Lactic Acid level) 2.6 mmol/L (0.5-2.2)
[2024-04-22] MEDS: multivitamin therapeutic Tablet 1 TAB PO (08:24)
[2024-04-22] MEDS: folic acid 1 mg Tablet PO (08:24)
[2024-04-22 10:35] LABS: Basophils % 0.5 %; Eosinophils # 0.1 10^3/uL (0.0-0.8); Eosinophils % 0.8 %; Hematocrit 33.7 % (37-53); Lymphocytes # 0.6 10^3/uL (0.8-4.8); Lymphocytes % 7.2 %; Mean Corpuscular HGB Conc 31.5 g/dL (30-55); Mean Corpuscular Hemoglobin 31.9 pg (27-33); Mean Corpuscular Volume 101.5 fl (82-101); Mean Platelet Volume 11.2 fL (7.4-10.4); Monocytes # 0.6 10^3/uL (0.2-0.9); Monocytes % 6.7 %; Neutrophils % 84.5 %; Nucleated Red Blood Cells % 0 %; Platelet Count 145 10^3/cmm (157-399); Red Blood Count 3.32 10^6/uL (3.85-5.65); Red Cell Distribution Width 16.5 % (12.1-15.1); White Blood Count 8.87 10^3/uL (3.29-11.43)
[2024-04-22] MEDS: cefepime 2,000 mg SDV 2000 MG IVP (12:19)
--- NOTE | 2024-04-22 16:13 | CTR_ITS ---
PROCEDURE INFORMATION: Exam: CTA Chest With Contrast Exam date and time: 04/23/2024 3:53 AM Age: 73 years old Clinical indication: Pain; Chest pressure; Additional info: Assess for pe, assess for pe. H/o anal cancer, S/P radiation, now with TECHNIQUE: Imaging protocol: Computed tomographic angiography of the chest with contrast. Exam focused on the arteries. 3D rendering (Not supervised by radiologist): MIP and/or 3D reconstructed images were created by the technologist. Radiation optimization: All CT scans at this facility use at least one of these dose optimization techniques: automated exposure control; mA and/or kV adjustment per patient size (includes targeted exams where dose is matched to clinical indication); or iterative reconstruction. Contrast material: OMNI 350; Contrast volume: 100 ml; Contrast route: INTRAVENOUS (IV); COMPARISON: CT angio chest PE protcl [id number] 06/04/2019 1:13 PM RADIATION DOSE METRICS: Total DLP (mGy-cm): 850.61 FINDINGS: Pulmonary arteries: Evaluation for pulmonary embolus slightly limited by bolus timing and motion artifact. There are no filling defects involving the central pulmonary arteries. Distal segmental pulmonary emboli can not be entirely excluded this study. Aorta: The ascending thoracic aorta is aneurysmal measuring up to 4.1 cm in diameter with scattered calcific plaque. No aortic dissection. Lungs: Consolidative changes present in the bilateral lower lobes. Areas of tree-in-bud present in the right lower lobe, right middle lobe right upper lobe. There is a stable 5 mm noncalcified pulmonary nodule in the right upper lobe, benign. Pleural spaces: Unremarkable. No pneumothorax. No pleural effusion. Heart: The heart is enlarged. Coronary arteries: Coronary artery calcification present. Lymph nodes: Unremarkable. No enlarged lymph nodes. Bones/joints: Multilevel degenerative changes involve the spine. Mild chronic T5 compression fracture. Soft tissues: Unremarkable. PROCEDURE INFORMATION: Exam: CT Abdomen And Pelvis With Contrast Exam date and time: 04/23/2024 3:53 AM Age: 73 years old Clinical indication: Pain; Chest pressure; Additional info: Assess for pe, assess for pe. H/o anal cancer, S/P radiation, now with TECHNIQUE: Imaging protocol: Computed tomography of the abdomen and pelvis with contrast. Radiation optimization: All CT scans at this facility use at least one of these dose optimization techniques: automated exposure control; mA and/or kV adjustment per patient size (includes targeted exams where dose is matched to clinical indication); or iterative reconstruction. Contrast material: OMNI 350; Contrast volume: 100 ml; Contrast route: INTRAVENOUS (IV); COMPARISON: CT abdomen pelvis w con* [id number] 03/29/2022 4:47 PM RADIATION DOSE METRICS: Total DLP (mGy-cm): 01 FINDINGS: Liver: Normal. No mass. Gallbladder and biliary ducts: The gallbladder is surgically absent. Pancreas: Normal. No ductal dilation. Spleen: Normal. No splenomegaly. Adrenal glands: Normal. No mass. Kidneys and ureters: Bilateral simple renal cysts noted. Stomach and bowel: Unremarkable. No obstruction. No mucosal thickening. Appendix: No evidence of appendicitis. Intraperitoneal space: Unremarkable. No free air. No significant fluid collection. Vasculature: Scattered calcific plaque involves the abdominal aorta and iliac arteries. Lymph nodes: Unremarkable. No enlarged lymph nodes. Urinary bladder: Diffuse urinary bladder wall thickening noted. Reproductive: Unremarkable as visualized. Bones/joints: There is decreased bone density involving the bony pelvis likely related to postradiation changes. Sclerotic region involving the left pubic symphysis unchanged. Soft tissues: Diffuse anasarca present. CT/CT angio chest w abd pel w con IMPRESSION: 1. Limited evaluation for pulmonary embolus as detailed above. No definitive PE. 2. Consolidative changes involving the bilateral lower lobes with scattered areas of tree-in-bud. These findings likely reflect pneumonia. 3. Stable ascending thoracic aortic aneurysm without dissection. 4. Atherosclerosis. IMPRESSION: 1. Mild diffuse urinary bladder wall thickening. Clinical correlation for cystitis recommended. 2. Atherosclerosis. 3. Renal cysts. 4. Additional chronic findings as detailed above. COMMENTS: Consistent with the [employer]'s Incidental Findings Committee white paper (J Am Keith Radiol 2018): Any incidental renal lesion less than 1 cm or classified as too small to characterize, or any incidental cystic renal lesion characterized as simple-appearing, is likely benign. No follow-up imaging is recommended for these lesions per consensus recommendations based on imaging criteria.
--- NOTE | 2024-04-22 16:16 | PM.PN ---
Subjective Subjective: Overnight labs and H&P reviewed. Patient has not had any bowel movement since being in the hospital. His chief complaints right now is the rash over his buttocks and lower back. Medications: Reviewed: Yes Vitals/I&O/Wt Last Vital Signs Temp 97.3 F L 04/22/24 08:00 Pulse 93 04/22/24 14:00 Resp 29 H 04/22/24 14:00 BP 118/73 04/22/24 14:00 Pulse Ox 78 L 04/22/24 14:00 O2 Del Method Room Air 04/22/24 10:00 04/22/24 04/22/24 04/22/24 06:59 14:59 22:59 Intake Total 1750 / 1750 1420 / 1420 Output Total 150 / 150 Balance 1600 / 1600 1420 / 1420 Weight last 48 hrs Weight 59 kg Weight 59 kg Weight 58.5 kg Weight 59.421 kg Physical Exam Narrative: General: No acute distress, AO x3, forgetful, HEENT: PERRLA, pupils bilaterally equal and reactive, pallors not present Chest: Normal vesicular breath sounds, no added sounds, equal good air entry bilaterally CVS: S1-S2 regular, no murmurs, no tachycardia, no gallops, no rubs Abdomen: Soft, nontender, no organomegaly, bowel sounds present Neuro: No focal deficits, no facial deformity, power 5/5 in all limbs Data 04/22/24 10:23 04/22/24 07:15 Micro: Microbiology 04/21/24 20:12 Blood Culture - Preliminary Blood SPECIMEN COLLECTED 04/21/24 20:36 Blood Culture - Preliminary Blood SPECIMEN COLLECTED A&P Assessment and plan (1) Alcohol use disorder: (2) Severe sepsis: (3) Cellulitis of buttock: Plan Gerardo Millan is a 73 yo man w/ 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 common femoral vein DVT in 02/2019, Emphysema, Anxiety/Depression, severe alcohol use d/o, who presents to the ED on 04/22/2024 with n/v/diarrhea. #Severe Sepsis - Possibly due to Cellulitis vs Gastroenteritis. Will get CT abd/pelvis and CT chest w/ contrast based on results of his morning labs and lactate. I would like a CT chest b/c my physical findings are different from his CXR in the ED. - s/p 2L NS bolus in the ED. Will give another 1L. - F/u BCx. - Continue Cefepime and Vanc. Will add flagyl. #Cellulitis: See Severe sepsis section #Gastroenteritis: See Severe Sepsis section. C. diff was ordered in the ED, but he has not had a BM since admission. #Severe alcohol use/do: Continue thiamine, folate. Ordered [facility] protocol - monitor for alcohol w/drawal. #Lactic acidosis: Improving. Continue to monitor. # Hypokalemia: Ordered 40mEQ of KCl po x 1. #Anxiety/Depression: On Lexapro. Consider increasing it to 10mg daily. DVT ppx: Lovenox GI ppx: PPI April 22, 2024 Patient without any diarrhea since admission to the hospital. Awaiting C. difficile testing. Blood pressure and hemodynamics are currently stable. No further episodes of hypotension. Elevated alcohol level. Suspect that his symptoms of lactic acidosis, leukocytosis may have been related to dehydration from GI losses versus acute alcohol intoxication. He is afebrile currently. CT of the chest abdomen and pelvis is pending. Check ammonia level as patient is difficult to stay on point in conversation. Needs frequent redirection. Given daily alcohol consumption, worried about underlying liver cirrhosis and possible hepatic encephalopathy. Replete magnesium with 1 g IV today. Has a rash affecting bilateral buttocks, lower back. Will attempt to reach out to family to get more collateral information. Suspect rash may be related to persistent diarrheal bowel movements versus prolonged recumbency. Attestations Medical Necessity Statement*: CT abdomen pelvis today, continued IV antibiotics while undergoing infectious source evaluation. Coding Level of Care Code Acute Code for [facility] Fwd Diagnoses Alcohol use disorder F10.90 Severe sepsis A41.9; R65.20 Cellulitis of buttock L03.317
[2024-04-22] MEDS: magnesium sulfate premix 1 GM/100 ML PIGGYBACK IV (17:58)
[2024-04-23] VITALS (7 sets, daily range): BP systolic 103–129; BP diastolic 64–79; PULSE 70–94; RESP 12–18; TEMP 36.7–37.8; O2SAT 86–98
[2024-04-23] MEDS: cefepime 2,000 mg SDV 2000 MG IVP ×2 (01:04→12:22)
[2024-04-23 03:44] LABS: Basophils % 0.4 %; Eosinophils # 0.1 10^3/uL (0.0-0.8); Eosinophils % 1.4 %; Hematocrit 29.4 % (37-53); Lymphocytes # 0.7 10^3/uL (0.8-4.8); Lymphocytes % 8.8 %; Mean Corpuscular HGB Conc 32.7 g/dL (30-55); Mean Corpuscular Hemoglobin 32.2 pg (27-33); Mean Corpuscular Volume 98.7 fl (82-101); Mean Platelet Volume 10.7 fL (7.4-10.4); Monocytes # 0.5 10^3/uL (0.2-0.9); Monocytes % 6.8 %; Neutrophils # 6.25 10^3/uL (1.8-7.7); Neutrophils % 81.9 %; Nucleated Red Blood Cells % 0 %; Platelet Count 150 10^3/cmm (157-399); Red Blood Count 2.98 10^6/uL (3.85-5.65); Red Cell Distribution Width 16.2 % (12.1-15.1); White Blood Count 7.63 10^3/uL (3.29-11.43)
[2024-04-23] MEDS: iohexol 350 mg/mL 500 mL Btl (per mL) IV (04:01)
[2024-04-23 04:02] LABS: Alanine Aminotransferase 8 U/L (0-41); Albumin Level 2.7 g/dL (3.5-5.2); Alkaline Phosphatase 97 U/L (40-130); Ammonia 34 umol/L (16-60); Aspartate Amino Transferase 18 U/L (0-40); Blood Urea Nitrogen 22 mg/dL (8-23); Calcium 7.9 mg/dL (8.5-10.5); Carbon Dioxide 22 mmol/L (22-29); Chloride 96 mmol/L (98-107); Creatinine Clr Calc Pharmacy 69.6528; Globulin 2.7 g/dL (1.3-4.6); Glucose 96 mg/dL (65-115); Magnesium 1.4 mg/dL (1.7-2.3); Osmolality Calculated 273 mOsm/kg (285-295); Sodium 130 mmol/L (136-145); Total Bilirubin 0.9 mg/dL (0.15-1.2); Total Protein 5.4 g/dL (6.6-8.7)
[2024-04-23] MEDS: pantoprazole DR 40 mg Tablet PO (06:26)
[2024-04-23] MEDS: VANCOMYCIN ADD-Vantage 750 MG in 0.9% NaCl ADD-Vantage 250 ML 250 MG IV ×2 (08:44→20:14)
[2024-04-23] MEDS: thiamine 100 mg Tablet PO (08:46)
[2024-04-23] MEDS: multivitamin therapeutic Tablet 1 TAB PO (08:46)
[2024-04-23] MEDS: folic acid 1 mg Tablet PO (08:46)
--- NOTE | 2024-04-23 13:59 | PC.SOCIAL ---
IMM Updated Updated pt on IMM.. No questions voiced. Provided pt a copy. Initialed, dated, & timed a copy & placed in chart.
[2024-04-23 19:02] LABS: Vancomycin Trough 14.5 ug/mL (10-15)
[2024-04-23] MEDS: enoxaparin 40 mg/0.4 mL Syringe SUBCUT (20:16)
--- NOTE | 2024-04-23 23:12 | P.PN_ITS ---
Subjective 2 Subjective: blood cx reported as positive for GPC in clusters today, no leukocytosis, c/o genralized weakness Medications: Reviewed: Yes Vitals/I&O/Wt Last Vital Signs Temp 98.4 F 04/23/24 20:00 Pulse 88 04/23/24 20:00 Resp 15 04/23/24 20:00 BP 104/64 04/23/24 20:00 Pulse Ox 94 04/23/24 20:00 O2 Del Method Room Air 04/23/24 20:00 04/23/24 04/23/24 04/24/24 14:59 22:59 06:59 Intake Total 370 / 370 730 / 1100 Output Total 875 / 875 300 / 1175 Balance -505 / -505 430 / -75 Weight last 48 hrs Weight 63.14 kg Weight 59 kg Weight 59 kg Weight 58.5 kg Physical Exam 2 Narrative: General: No acute distress, AO x3, forgetful, HEENT: PERRLA, pupils bilaterally equal and reactive, pallors not present Chest: Normal vesicular breath sounds, no added sounds, equal good air entry bilaterally CVS: S1-S2 regular, no murmurs, no tachycardia, no gallops, no rubs Abdomen: Soft, nontender, no organomegaly, bowel sounds present Neuro: No focal deficits, no facial deformity, power 5/5 in all limbs Data 04/23/24 03:01 04/23/24 03:01 Micro: Microbiology 04/21/24 22:10 Blood Culture - Preliminary Blood 04/21/24 22:00 Blood Culture - Preliminary Blood NEGATIVE TO DATE 04/21/24 20:12 Blood Culture - Preliminary Blood NEGATIVE TO DATE 04/21/24 20:36 Blood Culture - Preliminary Blood NEGATIVE TO DATE A&P Assessment and plan (1) Alcohol use disorder: (2) Severe sepsis: (3) Cellulitis of buttock: Plan Gerardo Millan is a 73 yo man w/ 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 common femoral vein DVT in 02/2019, Emphysema, Anxiety/Depression, severe alcohol use d/o, who presents to the ED on 04/22/2024 with n/v/diarrhea. #Severe Sepsis - Possibly due to Cellulitis vs Gastroenteritis. Will get CT abd/pelvis and CT chest w/ contrast based on results of his morning labs and lactate. I would like a CT chest b/c my physical findings are different from his CXR in the ED. - s/p 2L NS bolus in the ED. Will give another 1L. - F/u BCx. - Continue Cefepime and Vanc. Will add flagyl. #Cellulitis: See Severe sepsis section #Gastroenteritis: See Severe Sepsis section. C. diff was ordered in the ED, but he has not had a BM since admission. #Severe alcohol use/do: Continue thiamine, folate. Ordered [facility] protocol - monitor for alcohol w/drawal. #Lactic acidosis: Improving. Continue to monitor. # Hypokalemia: Ordered 40mEQ of KCl po x 1. #Anxiety/Depression: On Lexapro. Consider increasing it to 10mg daily. DVT ppx: Lovenox GI ppx: PPI April 22, 2024 Patient without any diarrhea since admission to the hospital. Awaiting C. difficile testing. Blood pressure and hemodynamics are currently stable. No further episodes of hypotension. Elevated alcohol level. Suspect that his symptoms of lactic acidosis, leukocytosis may have been related to dehydration from GI losses versus acute alcohol intoxication. He is afebrile currently. CT of the chest abdomen and pelvis is pending. Check ammonia level as patient is difficult to stay on point in conversation. Needs frequent redirection. Given daily alcohol consumption, worried about underlying liver cirrhosis and possible hepatic encephalopathy. Replete magnesium with 1 g IV today. Has a rash affecting bilateral buttocks, lower back. Will attempt to reach out to family to get more collateral information. Suspect rash may be related to persistent diarrheal bowel movements versus prolonged recumbency. Mar: Blood cx reported as + for GPC in clusters awaiting further ID. Recheck blood cx with am labs. COntinue abx cefepime and vancomycin. CT CAP with PNA at lung bases. Clinically improving Attestations 2 Medical Necessity Statement*: continuw iv abx, pending blood cx ID and sensitivity Coding Level of Care Code Acute Code for g Fwd Diagnoses Alcohol use disorder F10.90 Severe sepsis A41.9; R65.20 Cellulitis of buttock L03.317
[2024-04-24] VITALS (7 sets, daily range): BP systolic 96–123; BP diastolic 53–70; PULSE 61–88; RESP 15–19; TEMP 36.4–37.2; O2SAT 90–96
[2024-04-24] MEDS: cefepime 2,000 mg SDV 2000 MG IVP ×2 (02:56→13:06)
[2024-04-24 05:56] LABS: Basophils % 0.6 %; Eosinophils # 0.1 10^3/uL (0.0-0.8); Hematocrit 27.2 % (37-53); Lymphocytes # 0.9 10^3/uL (0.8-4.8); Lymphocytes % 14.7 %; Mean Corpuscular HGB Conc 31.6 g/dL (30-55); Mean Corpuscular Hemoglobin 32.5 pg (27-33); Mean Corpuscular Volume 102.6 fl (82-101); Mean Platelet Volume 10.1 fL (7.4-10.4); Monocytes # 0.9 10^3/uL (0.2-0.9); Monocytes % 14.8 %; Neutrophils # 4.28 10^3/uL (1.8-7.7); Neutrophils % 68.3 %; Nucleated Red Blood Cells % 0 %; Platelet Count 146 10^3/cmm (157-399); Red Blood Count 2.65 10^6/uL (3.85-5.65); Red Cell Distribution Width 16.2 % (12.1-15.1); White Blood Count 6.27 10^3/uL (3.29-11.43)
[2024-04-24 06:13] LABS: Alanine Aminotransferase 9 U/L (0-41); Albumin Level 2.4 g/dL (3.5-5.2); Alkaline Phosphatase 57 U/L (40-130); Anion Gap 13.4 (5-19); Aspartate Amino Transferase 23 U/L (0-40); Blood Urea Nitrogen 12 mg/dL (8-23); Calcium 7.4 mg/dL (8.5-10.5); Carbon Dioxide 23 mmol/L (22-29); Chloride 96 mmol/L (98-107); Creatinine Clr Calc Pharmacy 74.8083; Globulin 1.8 g/dL (1.3-4.6); Glucose 93 mg/dL (65-115); Osmolality Calculated 267 mOsm/kg (285-295); Potassium 3.4 mmol/L (3.5-5.1); Sodium 129 mmol/L (136-145); Total Bilirubin 0.9 mg/dL (0.15-1.2); Total Protein 4.2 g/dL (6.6-8.7)
[2024-04-24] MEDS: pantoprazole DR 40 mg Tablet PO (06:33)
[2024-04-24] MEDS: VANCOMYCIN ADD-Vantage 750 MG in 0.9% NaCl ADD-Vantage 250 ML 250 MG IV ×2 (06:34→17:59)
[2024-04-24] MEDS: thiamine 100 mg Tablet PO (08:59)
[2024-04-24] MEDS: folic acid 1 mg Tablet PO (09:00)
[2024-04-24] MEDS: multivitamin therapeutic Tablet 1 TAB PO (09:00)
--- NOTE | 2024-04-24 16:42 | PM.PN ---
Subjective Subjective: No acute interim events. Feels well overall. Blood culture GPC appearing to be micrococcus. Medications: Reviewed: Yes Vitals/I&O/Wt Last Vital Signs Temp 98.4 F 04/24/24 12:00 Pulse 75 04/24/24 14:00 Resp 16 04/24/24 12:00 BP 99/62 04/24/24 12:00 Pulse Ox 95 04/24/24 12:00 O2 Del Method Room Air 04/24/24 12:00 04/24/24 04/24/24 04/24/24 06:59 14:59 22:59 Intake Total 120 / 1220 610 / 610 Output Total 300 / 1475 500 / 500 Balance -180 / -255 110 / 110 Weight last 48 hrs Weight 63.367 kg Weight 63.14 kg Physical Exam Narrative: General: No acute distress, AO x3, forgetful, HEENT: PERRLA, pupils bilaterally equal and reactive, pallors not present Chest: Normal vesicular breath sounds, no added sounds, equal good air entry bilaterally CVS: S1-S2 regular, no murmurs, no tachycardia, no gallops, no rubs Abdomen: Soft, nontender, no organomegaly, bowel sounds present Neuro: No focal deficits, no facial deformity, power 5/5 in all limbs Data 04/24/24 05:45 04/24/24 05:45 Micro: Microbiology 04/24/24 05:47 Blood Culture - Preliminary Blood SPECIMEN COLLECTED 04/24/24 05:45 Blood Culture - Preliminary Blood SPECIMEN COLLECTED 04/21/24 22:10 Blood Culture - Preliminary Blood A&P Assessment and plan (1) Alcohol use disorder: (2) Severe sepsis: (3) Cellulitis of buttock: Plan Gerardo Millan is a 73 yo man w/ 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 common femoral vein DVT in 02/2019, Emphysema, Anxiety/Depression, severe alcohol use d/o, who presents to the ED on 04/22/2024 with n/v/diarrhea. #Severe Sepsis - Possibly due to Cellulitis vs Gastroenteritis. Will get CT abd/pelvis and CT chest w/ contrast based on results of his morning labs and lactate. I would like a CT chest b/c my physical findings are different from his CXR in the ED. - s/p 2L NS bolus in the ED. Will give another 1L. - F/u BCx. - Continue Cefepime and Vanc. Will add flagyl. #Cellulitis: See Severe sepsis section #Gastroenteritis: See Severe Sepsis section. C. diff was ordered in the ED, but he has not had a BM since admission. #Severe alcohol use/do: Continue thiamine, folate. Ordered [facility] protocol - monitor for alcohol w/drawal. #Lactic acidosis: Improving. Continue to monitor. # Hypokalemia: Ordered 40mEQ of KCl po x 1. #Anxiety/Depression: On Lexapro. Consider increasing it to 10mg daily. DVT ppx: Lovenox GI ppx: PPI April 22, 2024 Patient without any diarrhea since admission to the hospital. Awaiting C. difficile testing. Blood pressure and hemodynamics are currently stable. No further episodes of hypotension. Elevated alcohol level. Suspect that his symptoms of lactic acidosis, leukocytosis may have been related to dehydration from GI losses versus acute alcohol intoxication. He is afebrile currently. CT of the chest abdomen and pelvis is pending. Check ammonia level as patient is difficult to stay on point in conversation. Needs frequent redirection. Given daily alcohol consumption, worried about underlying liver cirrhosis and possible hepatic encephalopathy. Replete magnesium with 1 g IV today. Has a rash affecting bilateral buttocks, lower back. Will attempt to reach out to family to get more collateral information. Suspect rash may be related to persistent diarrheal bowel movements versus prolonged recumbency. Mar: Blood cx reported as + for GPC in clusters awaiting further ID. Recheck blood cx with am labs. COntinue abx cefepime and vancomycin. CT CAP with PNA at lung bases. Clinically improving hyponatremia with sodium today at 129. Add sodium chloride 1 g p.o. daily. Blood culture isolate is yet to be identified, does not appear to be Staphylococcus species per PCR. May potentially be micrococcus. Will have to await growth on cultures for an exact organism ID. Micrococcus may be related to contamination versus true pathogen from pneumonia. Will await identification before deciding on final antibiotic course Attestations Medical Necessity Statement*: Awaiting blood culture results to decide final course with antibiotics Coding Level of Care Code Acute Code for [facility] Diagnoses Alcohol use disorder F10.90 Severe sepsis A41.9; R65.20 Cellulitis of buttock L03.317
[2024-04-24] MEDS: sodium chloride 1 gm Tablet PO (17:58)
[2024-04-24] MEDS: enoxaparin 40 mg/0.4 mL Syringe SUBCUT (20:06)
[2024-04-25] VITALS: BP 111/65; PULSE 72; RESP 16; TEMP 37.6; O2SAT 93
[2024-04-25] MEDS: cefepime 2,000 mg SDV 2000 MG IVP (01:37)
[2024-04-25 04:00] VITALS: BP 113/68; PULSE 67; RESP 19; TEMP 37.2; O2SAT 91
[2024-04-25 05:11] LABS: Alanine Aminotransferase 15 U/L (0-41); Albumin Level 2.2 g/dL (3.5-5.2); Alkaline Phosphatase 86 U/L (40-130); Aspartate Amino Transferase 35 U/L (0-40); Blood Urea Nitrogen 13 mg/dL (8-23); Calcium 7.8 mg/dL (8.5-10.5); Carbon Dioxide 22 mmol/L (22-29); Chloride 99 mmol/L (98-107); Creatinine Clr Calc Pharmacy 74.0586; Globulin 2.9 g/dL (1.3-4.6); Glucose 96 mg/dL (65-115); Osmolality Calculated 272 mOsm/kg (285-295); Sodium 131 mmol/L (136-145); Total Bilirubin 0.6 mg/dL (0.15-1.2); Total Protein 5.1 g/dL (6.6-8.7)
[2024-04-25 05:16] LABS: Anion Gap 13.5 (5-19); Potassium 3.5 mmol/L (3.5-5.1)
[2024-04-25] MEDS: VANCOMYCIN ADD-Vantage 750 MG in 0.9% NaCl ADD-Vantage 250 ML 250 MG IV (06:33)
[2024-04-25] MEDS: pantoprazole DR 40 mg Tablet PO (06:36)
[2024-04-25 08:00] VITALS: BP 133/73; PULSE 68; RESP 16; TEMP 36.8; O2SAT 92
[2024-04-25] MEDS: sodium chloride 1 gm Tablet PO (09:13)
[2024-04-25] MEDS: folic acid 1 mg Tablet PO (09:13)
[2024-04-25] MEDS: thiamine 100 mg Tablet PO (09:13)
[2024-04-25] MEDS: multivitamin therapeutic Tablet 1 TAB PO (09:13)
[2024-04-25 12:00] VITALS: BP 120/70; PULSE 64; RESP 17; TEMP 36.8; O2SAT 93
--- NOTE | 2024-04-25 12:50 | PM.DCS ---
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 common femoral vein DVT in 02/2019, Emphysema, Anxiety/Depression, severe alcohol use d/o, who presents to the ED on 04/22/2024 with n/v/diarrhea. he has had a diaper rash for several weeks, and he has been trying to treat it w/ constarch powder, baby powder and ointment. He does have some chronic diarrhea since his XRT radiation rx but had been worse recently. His last drink was the day before he presented to the ED. his vital signs were significant for hypertension of 62/36 mmHg, tachycardia, and tachypnea. His labs are significant for leukocytosis of 13.2. CT CAP showed pneumonia no gross abnormalities noted in the abdomen or pelvis. He was given treatment with fluids, Vanc, Cefepime, folate and thiamine.. Blood culture from April 21, 2024 resulted positive for 1 out of 4 bottles positive for micrococcus. This may have been a contaminant, however with concomitant pneumonia cannot rule out true bacteremia. He is being discharged today with oral linezolid 600 mg p.o. twice daily for the same. Instructed to hold Lexapro while he is on linezolid to minimize risk of serotonin release syndrome. For his rash he received zinc oxide ointment for local application. His rash did improve with this application. He is recommended to continue using a thick diaper cream upon return to home. It did appear that some of his back irritation may be related to prolonged recumbency. recommend frequent repositioning. Patient has mostly been in bed during his course here. He was evaluated by physical therapy who recommended continued therapy at SNF, however patient states that he has multiple things to do such as doctors appointments and needs to do his taxes therefore he is not ready to go to SNF just yet. He has therefore been discharged home under care of his significant other. Physical Exam Narrative: General: No acute distress, AO x3 HEENT: PERRLA, pupils bilaterally equal and reactive, pallors not present Chest: Normal vesicular breath sounds, no added sounds, equal good air entry bilaterally CVS: S1-S2 regular, no murmurs, no tachycardia, no gallops, no rubs Abdomen: Soft, nontender, no organomegaly, bowel sounds present Neuro: No focal deficits, no facial deformity, AO x3, power 5/5 in all limbs Extremities: rash noted over buttocks, improving since admission Discharge Data Studies Completed and Pending Completed Studies During Hospitalization Category Date Time Status CTA chest CT abdomen pelvis [CT angio chest w abd pel w Cat Scan 04/22/24 16:13 Completed con] Routine XR chest 1V portable [id number] Stat Exams 04/21/24 22:58 Completed Pending at discharge Category Date Time Status Blood Culture AM LABS Lab 04/24/24 05:47 Results Blood Culture Stat Lab 04/21/24 20:36 Results Blood Culture Stat Lab 04/21/24 22:10 Results C.Diff PCR (Lab) Stat Lab 04/21/24 22:25 Uncollected Vancomycin Trough Routine Lab 04/25/24 18:30 Ordered Radiology Impressions Chest X-Ray 04/21/24 22:58 IMPRESSION: No acute abnormality. Chest/Abdomen/Pelvis CT 04/22/24 16:13 IMPRESSION: 1. Limited evaluation for pulmonary embolus as detailed above. No definitive PE. 2. Consolidative changes involving the bilateral lower lobes with scattered areas of tree-in-bud. These findings likely reflect pneumonia. 3. Stable ascending thoracic aortic aneurysm without dissection. 4. Atherosclerosis. IMPRESSION: 1. Mild diffuse urinary bladder wall thickening. Clinical correlation for cystitis recommended. 2. Atherosclerosis. 3. Renal cysts. 4. Additional chronic findings as detailed above. COMMENTS: Consistent with the [employer]'s Incidental Findings Committee white paper (J Am Keith Radiol 2018): Any incidental renal lesion less than 1 cm or classified as too small to characterize, or any incidental cystic renal lesion characterized as simple-appearing, is likely benign. No follow-up imaging is recommended for these lesions per consensus recommendations based on imaging criteria. Laboratory Results WBC 6.27 10^3/uL (3.29-11.43) 04/24/24 05:45 RBC 2.65 10^6/uL (3.85-5.65) L 04/24/24 05:45 Hgb 8.60 g/dL (11.27-16.99) L 04/24/24 05:45 Hct 27.2 % (37-53) L 04/24/24 05:45 MCV 102.6 fl (82-101) H 04/24/24 05:45 MCH 32.5 pg (27-33) 04/24/24 05:45 MCHC 31.6 g/dL (30-55) 04/24/24 05:45 RDW 16.2 % (12.1-15.1) H 04/24/24 05:45 Plt Count 146 10^3/cmm (157-399) L 04/24/24 05:45 MPV 10.1 fL (7.4-10.4) 04/24/24 05:45 Neut % (Auto) 68.3 % 04/24/24 05:45 Lymph % (Auto) 14.7 % 04/24/24 05:45 Coleman % (Auto) 14.8 % 04/24/24 05:45 Eos % (Auto) 1.0 % 04/24/24 05:45 Baso % (Auto) 0.6 % 04/24/24 05:45 Neut # (Auto) 4.28 10^3/uL (1.8-7.7) 04/24/24 05:45 Lymph # (Auto) 0.9 10^3/uL (0.8-4.8) 04/24/24 05:45 Coleman # (Auto) 0.9 10^3/uL (0.2-0.9) 04/24/24 05:45 Eos # (Auto) 0.1 10^3/uL (0.0-0.8) 04/24/24 05:45 Baso # (Auto) 0.0 10^3/uL (0.0-0.1) 04/24/24 05:45 Nucleated RBC % (auto) 0 % 04/24/24 05:45 Total Counted 100 (0-100) 04/21/24 20:36 Atypical Lymphs % Not Reportable 04/21/24 20:36 Absolute Neutrophils 11.8 10^3/cmm (1.4-6.5) H 04/21/24 20:36 Segmented Neutrophils 70 % 04/21/24 20:36 Band Neutrophils 19.0 % 04/21/24 20:36 Lymphocytes (Manual) 6 % 04/21/24 20:36 Monocytes (Manual) 5.0 % 04/21/24 20:36 Absolute Monocytes 0.7 10^3/cmm (0.1-0.6) H 04/21/24 20:36 Eosinophils (Manual) 0 % 04/21/24 20:36 Absolute Eosinophils 0.0 10^3/cmm (0.0-0.7) 04/21/24 20:36 Basophils (Manual) 0.0 % 04/21/24 20:36 Absolute Basophils 0.0 10^3/cmm (0.0-0.2) 04/21/24 20:36 Nucleated RBCs # 0.0 /100WBC 04/24/24 05:45 Platelet Estimate Normal (Normal) 04/21/24 20:36 ESR 25 mm/hr (0-10) H 04/21/24 22:00 PT 14.00 SECONDS (12.1-14.9) 04/22/24 07:15 INR 1.01 (0.8-1.2) 04/22/24 07:15 APTT 39.5 SECONDS (23.9-36.7) H 04/22/24 07:15 Specimen Type Arterial 04/21/24 22:02 Sample Site Brachial, right 04/21/24 22:02 ABG pH 7.38 (7.35-7.45) 04/21/24 22:02 ABG pCO2 29.0 mmHg (35-45) L 04/21/24 22:02 ABG pO2 66.4 mmHg (80.0-100.0) L 04/21/24 22:02 ABG HCO3 17.0 mmol/L (22-26) L 04/21/24 22:02 ABG O2 Saturation 91.7 04/21/24 22:02 ABG Base Excess -6.9 mmol/L (-2.0-2.0) L 04/21/24 22:02 Phil Test Pos 04/21/24 22:02 A-a O2 Gradient 6.2 mmHg (5-10) 04/21/24 22:02 Hematocrit 35.4 % (42-52) L 04/21/24 22:02 Hgb O2 Saturation 89.3 % (95-100) L 04/21/24 22:02 Carboxyhemoglobin 1.5 %THgb (0.4-20.1) 04/21/24 22:02 Methemoglobin 1.1 % (0.4-1.5) 04/21/24 22:02 Total Hemoglobin 11.5 g/dL (14-18) L 04/21/24 22:02 Sodium 135.0 mmol/L (131-143) 04/21/24 22:02 Potassium 3.6 mmol/L (3.5-5.0) 04/21/24 22:02 Glucose 81.0 mg/dL (70-115) 04/21/24 22:02 Ionized Calcium 1.1 mmol/L (1.1-1.4) 04/21/24 22:02 O2 Delivery Device Room air 04/21/24 22:02 Tariff Compiler ID [email or web address] 04/21/24 22:02 Sodium 131 mmol/L (136-145) L 04/25/24 03:21 Potassium 3.5 mmol/L (3.5-5.1) 04/25/24 03:21 Chloride 99 mmol/L (98-107) 04/25/24 03:21 Carbon Dioxide 22 mmol/L (22-29) 04/25/24 03:21 Anion Gap 13.5 (5-19) 04/25/24 03:21 BUN 13 mg/dL (8-23) 04/25/24 03:21 Creatinine 0.5 mg/dL (0.7-1.2) L 04/25/24 03:21 GFR Calculation Not Reportable 04/25/24 03:21 Glucose 96 mg/dL (65-115) 04/25/24 03:21 Calculated Osmolality 272 mOsm/kg (285-295) L 04/25/24 03:21 Lactic Acid 12.0 mmol/L (0.5-2.2) H* 04/21/24 20:36 Lactic Acid (Sepsis) 9.0 mmol/L (0.5-2.2) H* 04/21/24 22:10 Lactate 2.6 mmol/L (0.5-2.2) H 04/22/24 07:33 Calcium 7.8 mg/dL (8.5-10.5) L 04/25/24 03:21 Phosphorus 2.9 mg/dL (2.5-4.5) 04/22/24 07:15 Magnesium 1.4 mg/dL (1.7-2.3) L 04/23/24 03:01 Total Bilirubin 0.6 mg/dL (0.15-1.2) 04/25/24 03:21 GGT 14 U/L (8-61) 04/22/24 07:15 AST 35 U/L (0-40) 04/25/24 03:21 ALT 15 U/L (0-41) 04/25/24 03:21 Alkaline Phosphatase 86 U/L (40-130) 04/25/24 03:21 Ammonia 34 umol/L (16-60) 04/23/24 03:01 Lactate Dehydrogenase 229 U/L (135-225) H 04/22/24 07:15 C-Reactive Protein 185.1 mg/L (0.0-4.9) H 04/21/24 22:00 Total Protein 5.1 g/dL (6.6-8.7) L D 04/25/24 03:21 Albumin 2.2 g/dL (3.5-5.2) L 04/25/24 03:21 Globulin 2.9 g/dL (1.3-4.6) 04/25/24 03:21 Lipase 9 U/L (13-60) L 04/21/24 22:00 Urine Color [place] (Yellow) A 04/22/24 06:36 Urine Appearance Cloudy (CLEAR) A 04/22/24 06:36 Urine pH 5.0 (5-7) 04/22/24 06:36 Ur Specific [place] 1.030 (1.005-1.030) 04/22/24 06:36 Urine Protein 2+ (Negative) A 04/22/24 06:36 Urine Glucose (UA) Negative (Normal) 04/22/24 06:36 Urine Ketones Negative (Negative) 04/22/24 06:36 Urine Blood Negative (Negative) 04/22/24 06:36 Urine Nitrate Negative (Negative) 04/22/24 06:36 Urine Bilirubin 1+ (Negative) H 04/22/24 06:36 Urine Urobilinogen 1.0 mg/dL (Negative) 04/22/24 06:36 Ur Leukocyte Esterase Trace (Negative) A 04/22/24 06:36 Urine RBC 6-10 /hpf (0-2) 04/22/24 06:36 Urine WBC 0-5 /hpf (0-5) 04/22/24 06:36 Ur Squamous Epith Cells 6-10 /hpf (0-5) 04/22/24 06:36 Amorphous Sediment 1+ /hpf 04/22/24 06:36 Urine Bacteria None seen /hpf (NONE) 04/22/24 06:36 Hyaline Casts 17.37 /lpf 04/22/24 06:36 Coarse Granular Casts 0-4 /lpf H 04/22/24 06:36 Vancomycin Trough 14.5 ug/mL (10-15) 04/23/24 18:30 Ethyl Alcohol 108 mg/dL (0-10) H 04/21/24 20:36 Vitals Last Vital Signs Temp 98.3 F 04/25/24 12:00 Pulse 64 04/25/24 12:00 Resp 17 04/25/24 12:00 BP 120/70 04/25/24 12:00 Pulse Ox 93 04/25/24 12:00 O2 Del Method Room Air 04/25/24 12:00 Discharge Plan Discharge Patient Disposition: Home Condition: Stable Prescriptions: New linezolid 600 mg tablet 600 mg PO BID 7 Days Qty: 14 0RF folic acid 1 mg Tablet 1 mg PO DAILY 30 Days Qty: 30 0RF thiamine mononitrate (vit B1) [Vitamin B-1 (mononitrate)] 100 mg Tablet 100 mg PO DAILY 30 Days Qty: 30 0RF pantoprazole 40 mg Tablet,Delayed Release (Dr/Ec) 40 mg PO ACBREAKFAST 30 Days Qty: 30 0RF cefdinir 300 mg capsule 300 mg PO BID 2 Days Qty: 4 0RF Desitin 40 % paste 1 applic topical BID Qty: 57 2RF Continued (DME) foot soak basin See Rx Instructions .Route .MEDSUPPLY Qty: 1 0RF Rx Instructions: As directed to HOME (DME) xavier klein. See Rx Instructions .Route .MEDSUPPLY Qty: 1 0RF Rx Instructions: As directed loperamide [Imodium] 2 mg Capsule 2 mg PO Q4H PRN (Reason: Diarrhea) Rx Instructions: administer after each loose stool until symptoms controlled; do not exceed 8 mg per 24 hrs atorvastatin 20 mg tablet 20 mg PO QAM Held escitalopram oxalate [Lexapro] 5 mg tablet 5 mg PO DAILY Qty: 30 0RF Hold Instructions: Resume on 05/02/24. hold while on linezolid Discharge Orders: Discharge Order (Routine); Ordered 04/25/24 Ordered By: Briana Nava Referrals: Medardo Bowers MD [Primary Care Provider] - 1 week Discharge Diet: As Directed Discharge Activity: As per PT/OT instructions Patient Instructions: Opioid Safety Discharge Attestations Time Spent in Discharge Care*: greater than 30 min Status at Discharge: Cognitive status at discharge: cognitively intact, Behavioral status at discharge: cooperative, Quality Metrics Clinical Quality Measures [ No reported AMI, CVA or VTE this stay] Coding Level of Care Code Acute Code for [facility] Diagnoses Alcohol use disorder F10.90 Severe sepsis A41.9; R65.20 Cellulitis of buttock L03.317
[2024-04-25 16:19] VITALS: BP 120/70; PULSE 64; RESP 17; TEMP 36.8; O2SAT 93
== END 2024-04-25 15:45 | disposition home or self-care (01) | DRG 871 ==
LOC: ER 22:54 → ICU 23:21 → MEDSURG 04-22 15:53
PROVIDERS: Admitting Provider Internal Medicine; Emergency Provider Emergency Medicine; PCP Family Medicine; Visit Provider Student in an Organized Health Care Education/Training Program
DX: A41.9 Sepsis, unspecified organism (principal); J18.9 Pneumonia, unspecified organism; L03.317 Cellulitis of buttock; K52.0 Gastroenteritis and colitis due to radiation; E87.20 Acidosis, unspecified; R65.20 Severe sepsis without septic shock; F10.229 Alcohol dependence with intoxication, unspecified; Y90.5 Blood alcohol level of 100-119 mg/100 ml; J43.9 Emphysema, unspecified; F41.9 Anxiety disorder, unspecified; F32.A Depression, unspecified; W88.1XXS Exposure to radioactive isotopes, sequela; I10 Essential (primary) hypertension; I73.9 Peripheral vascular disease, unspecified; F17.210 Nicotine dependence, cigarettes, uncomplicated; E86.0 Dehydration; E87.6 Hypokalemia; I25.2 Old myocardial infarction; Z85.048 Personal history of other malignant neoplasm of rectum, rectosigmoid junction, and anus; Z92.21 Personal history of antineoplastic chemotherapy; Z92.3 Personal history of irradiation; Z86.718 Personal history of other venous thrombosis and embolism; Z86.73 Personal history of transient ischemic attack (TIA), and cerebral infarction without residual deficits
CPT/HCPCS: 36415; 36600; 71045; 71275; 74177; 80048; 80051; 80053; 80202; 80307; 81001; 82140; 82330; 82805; 82977; 83605; 83615; 83690; 83735; 84100; 84450; 84460; 85007; 85025; 85610; 85651; 85730; 86140; 87040; 87077; 87150; 87205; 93005; 96365; 96372; 96375; 97162; 97165; 97530; 99285; J0692; J1650; J2405; J3370; J3411; J3475; J7030; J7040; J7050

== ENCOUNTER 2024-06-13 18:24 | Emergency (ER) | payer MEDICARE, MEDICAID, SELFPAY ==
[2024-06-13 18:32] VITALS: BP 111/74; PULSE 86; RESP 18; TEMP 36.6; O2SAT 98
--- NOTE | 2024-06-13 19:09 | XRR_ITS ---
PROCEDURE INFORMATION: Exam: XR Left Humerus Exam date and time: 06/13/2024 7:19 PM Age: 73 years old Clinical indication: Pain; Other: Humerus; Prior surgery; Surgery date: 6+ months; Surgery type: Escobar placement; Additional info: Fall, pain TECHNIQUE: Imaging protocol: Radiologic exam of the left humerus. Views: 2 or more views. COMPARISON: CR (CHEST, ) 03/28/2022 7:04 PM FINDINGS: Bones/joints: Intact metallic escobar in the humeral shaft traversing an old callused fracture. No acute fracture. Soft tissues: Normal. XR/[place] [id number] IMPRESSION: No acute findings.
--- NOTE | 2024-06-13 19:09 | XRR_ITS ---
PROCEDURE INFORMATION: Exam: XR Sacrum and Coccyx, 2 or More Views Exam date and time: 06/13/2024 7:26 PM Age: 73 years old Clinical indication: Pain in coccyx area; Additional info: Fall, pain TECHNIQUE: Imaging protocol: XR of the sacrum and coccyx, 2 or more views. COMPARISON: CR (ABDOMEN, ) 02/22/2023 4:23 PM FINDINGS: Bones/joints: Normal. No acute fracture. Soft tissues: Normal. XR/XR sacrum coccyx min 2V [id number] IMPRESSION: No acute findings.
--- NOTE | 2024-06-13 19:13 | W.ED.FALL ---
HPI - Fall General: Chief Complaint: Fall Stated Complaint: back pain s/p fall Time Seen by Provider: 06/13/24 19:05 History of Present Illness: 73-year-old male with history of alcohol abuse who presents the emergency room after he fell out of bed. He is complaining of some mild left humerus pain and some buttock pain. No head injury. Currently has no altered mental status and appears as he usually does when I see him here in the emergency room. Related Data Home Medications ?Medication ?Instructions ?Recorded ?Confirmed atorvastatin 20 mg tablet 20 mg PO QAM 09/14/22 05/12/24 loperamide 2 mg capsule 2 mg PO Q4H PRN Diarrhea 03/11/24 04/22/24 Previous Rx's ?Medication ?Instructions ?Recorded foot soak basin #1 ea 12/09/22 park brace. #1 ea 02/18/23 escitalopram oxalate 5 mg tablet 5 mg PO DAILY #30 tabs 03/11/24 (Lexapro) Held on 04/25/24. Instructions: Resume on 05/02/24. hold while on linezolid zinc oxide-cod liver oil 40 % 1 applic topical BID #57 grams 04/25/24 topical paste (Desitin) naltrexone 50 mg tablet 50 mg PO DAILY #30 tabs 05/12/24 Allergies Allergy/AdvReac Type Severity Reaction Status Date / Time corn Allergy ADR-Nausea Verified 06/13/24 18:39 [place] Allergy Uknown Verified 06/13/24 18:39 pear Allergy ALGY-Rash Verified 06/13/24 18:39 Penicillins Allergy ALGY-Difficulty Verified 06/13/24 18:39 Breathing Review of Systems Narrative: Constitutional symptoms: Negative except as documented in HPI. Skin symptoms: Negative except as documented in HPI. Eye symptoms: Negative except as documented in HPI. ENMT symptoms: Negative except as documented in HPI. Respiratory symptoms: Negative except as documented in HPI. Cardiovascular symptoms: Negative except as documented in HPI. Gastrointestinal symptoms: Negative except as documented in HPI. Genitourinary symptoms: Negative except as documented in HPI. Musculoskeletal symptoms: Negative except as documented in HPI. Neurologic symptoms: Negative except as documented in HPI. Psychiatric symptoms: Negative except as documented in HPI. Endocrine symptoms: Negative except as documented in HPI. [facility] ED PFSH: Medical History (Updated 06/13/24 @ 19:46 by Cyn Giles MD) Depression Psychiatric care Alcoholic intoxication Peripheral vascular disease Alcohol withdrawal Alcoholic ketoacidosis Hypomagnesemia Alcohol abuse Generalized weakness Anxiety Myocardial infarction Alcoholism Pancreatitis Status post chemoradiation Cholelithiasis Dizziness Anal cancer COPD (chronic obstructive pulmonary disease) Hypertension CVA (cerebral vascular accident) DVT (deep venous thrombosis) Acute dehydration Vomiting Surgical History Status post laparoscopic cholecystectomy (11/13/20) Hx of non-cataract eye surgery Hx of cataract extraction History of ankle surgery History of tonsillectomy Status post colonoscopy Family History (Updated 04/22/24 @ 06:20 by An Tracy MD) Mother Alzheimer's dementia Stomach cancer Father Throat cancer Other Family history non-contributory Social History Smoking and tobacco/nicotine status: current every day tobacco/nicotine user cigarettes Packs smoked per day: 0.5 Alcohol intake: current Alcohol intake frequency: 3 or more drinks per day Substance/Drug Use: never Household members: family Housing: House Physical Exam Narrative: EXAM NARRATIVE: General: Alert, no acute distress. Skin: Warm, dry. Head: Normocephalic, atraumatic. Neck: Supple, trachea midline. Eye: Extraocular movements are intact. Ears, nose, mouth and throat: mucosa moist. Cardiovascular: Regular, Normal peripheral perfusion. Respiratory: Lungs are clear to auscultation, respirations are non-labored, breath sounds are equal, Symmetrical chest wall expansion. Gastrointestinal: Soft, Nontender, Non distended Musculoskeletal: Normal ROM, no deformity. Neurological: Alert and oriented, No focal neurological deficit observed. Psychiatric: Cooperative, appropriate mood & affect. Course Vital Signs: Vital signs: Vital Signs Temperature 98 F 06/13/24 18:32 Pulse Rate 86 06/13/24 18:32 Respiratory Rate 18 06/13/24 18:32 Blood Pressure 111/74 06/13/24 18:32 Pulse Oximetry 98 06/13/24 18:32 Oxygen Delivery Me thod Room Air 06/13/24 18:32 MDM - Fall Medical Decision Making X-ray of left humerus: There is a noah in place. No acute fractures. Films were interpreted by myself the emergency room provider and pending final radiology review. X-ray of the sacrum and coccyx: No obvious acute fractures. Films were interpreted by myself the emergency room provider and pending final radiology review. Assessment and plan: Fall from bed - Discharged home - Discussed plan with patient. Answered any questions. - Evaluation and treatment of this problem were appropriate in the emergency setting. XR interpretation done by ED provider, pending radiology final review Discharge Plan Discharge Patient Disposition: Home Clinical Impression: Fall Condition: Stable Prescriptions: No Action (DME) foot soak basin See Rx Instructions .Route .MEDSUPPLY Qty: 1 0RF Rx Instructions: As directed to HOME (DME) park brace. See Rx Instructions .Route .MEDSUPPLY Qty: 1 0RF Rx Instructions: As directed naltrexone 50 mg tablet 50 mg PO DAILY Qty: 30 2RF loperamide 2 mg Capsule 2 mg PO Q4H PRN (Reason: Diarrhea) Rx Instructions: administer after each loose stool until symptoms controlled; do not exceed 8 mg per 24 hrs escitalopram oxalate [Lexapro] 5 mg tablet 5 mg PO DAILY Qty: 30 0RF atorvastatin 20 mg tablet 20 mg PO QAM Desitin 40 % paste 1 applic topical BID Qty: 57 2RF Discharge Orders: Discharge ED (Routine); Ordered 06/13/24 Ordered By: Cyn Giles Referrals: Medardo Bowers MD [Primary Care Provider] - Patient Instructions: Opioid Safety, Pain Management Activity Restrictions/Additional Instructions: Thank you for choosing [facility] for your healthcare needs today. Please realize this is an emergency room and that we are providing you with a medical screening exam and this may not be complete and all inclusive of all the testing and or work up that you may need to determine your ailment or severity of your illness. You have been screened and evaluated and felt safe for discharge. Health conditions do change or evolve sometimes and as such it is important that you follow up with your Primary Doctor to be re checked, 3-5 days is a general good time frame for follow up. You are always welcome to return to the ED for re assessment if your symptoms are worsening or you have new concerns Print Language: Mosotho Coding Level of Care Code ED Client Services Assistant for Katrin Mike
[2024-06-13 20:04] VITALS: BP 111/77; PULSE 69; O2SAT 98
== END 2024-06-13 20:04 | disposition home or self-care (01) ==
PROVIDERS: Emergency Provider Emergency Medicine; PCP Family Medicine
DX: M79.602 Pain in left arm (principal); W19.XXXA Unspecified fall, initial encounter; F17.210 Nicotine dependence, cigarettes, uncomplicated; Z86.73 Personal history of transient ischemic attack (TIA), and cerebral infarction without residual deficits; J44.9 Chronic obstructive pulmonary disease, unspecified; Z85.048 Personal history of other malignant neoplasm of rectum, rectosigmoid junction, and anus; I10 Essential (primary) hypertension; M53.3 Sacrococcygeal disorders, not elsewhere classified
CPT/HCPCS: 72220; 73060; 99284

== ENCOUNTER 2024-06-13 21:19 | Emergency (ER) | payer MEDICARE, SELFPAY ==
[2024-06-13 21:21] VITALS: BP 102/72; PULSE 100; RESP 16; TEMP 36.6; O2SAT 96
--- NOTE | 2024-06-13 23:04 | W.ED.GENADLT ---
HPI - General Adult General: Chief complaint: General Medical Stated complaint: Bottom is Burning Time Seen by Provider: 06/13/24 21:48 Source: patient Mode of arrival: wheelchair Limitations: no limitations History of Present Illness: Patient is a 73-year-old male who is well-known to our emergency department here after he checked back in after he was recently discharged from the waiting room. Patient was just seen in the emergency department following a fall from his bed. He had some complaints of mild humeral pain and buttock pain. He underwent x-ray imaging of the arm and sacrum/coccyx which were unremarkable. Patient was discharged to the waiting room. Patient states he has a longstanding history of urinary/fecal incontinence. He wears adult briefs. Patient states his buttocks/rectum was burning in the waiting room because he had soiled his adult brief. Patient states he checked back into the emergency department so nurses could clean him up/change his brief. He now states he has no ride home. Patient states all the burning went away after he was placed in a new brief. He has no other complaints at this time. Onset (ago): hour(s) Quality: burning Pain Consistency: now resolved Relieving factors: none Associated symptoms: Reports no associated symptoms; Deny chest pain, dyspnea, headache(s) or rash Treatments prior to arrival: none Related Data Home Medications ?Medication ?Instructions ?Recorded ?Confirmed atorvastatin 20 mg tablet 20 mg PO QAM 09/14/22 05/12/24 loperamide 2 mg capsule 2 mg PO Q4H PRN Diarrhea 03/11/24 04/22/24 Previous Rx's ?Medication ?Instructions ?Recorded foot soak basin #1 ea 12/09/22 park brace. #1 ea 02/18/23 escitalopram oxalate 5 mg tablet 5 mg PO DAILY #30 tabs 03/11/24 (Lexapro) Held on 04/25/24. Instructions: Resume on 05/02/24. hold while on linezolid zinc oxide-cod liver oil 40 % 1 applic topical BID #57 grams 04/25/24 topical paste (Desitin) naltrexone 50 mg tablet 50 mg PO DAILY #30 tabs 05/12/24 Allergies Allergy/AdvReac Type Severity Reaction Status Date / Time corn Allergy ADR-Nausea Verified 06/13/24 18:39 [place] Allergy Uknown Verified 06/13/24 18:39 pear Allergy ALGY-Rash Verified 06/13/24 18:39 Penicillins Allergy ALGY-Difficulty Verified 06/13/24 18:39 Breathing Review of Systems Const: Denies: fever(s) Card: Denies: chest pain Resp: Denies: dyspnea GI: Reports: other (buttocks burning but this has resolved); Denies: abdominal pain : Denies: flank pain or dysuria Musc: Denies: neck pain, back pain, extremity pain, extremity swelling or joint swelling Skin/Breast: Denies: rash Neuro: Denies: headache(s) or dizziness PFSH ED PFSH: Medical History Depression Psychiatric care Alcoholic intoxication Peripheral vascular disease Alcohol withdrawal Alcoholic ketoacidosis Hypomagnesemia Alcohol abuse Generalized weakness Anxiety Myocardial infarction Alcoholism Pancreatitis Status post chemoradiation Cholelithiasis Dizziness Anal cancer COPD (chronic obstructive pulmonary disease) Hypertension CVA (cerebral vascular accident) DVT (deep venous thrombosis) Acute dehydration Vomiting Surgical History Status post laparoscopic cholecystectomy (11/13/20) Hx of non-cataract eye surgery Hx of cataract extraction History of ankle surgery History of tonsillectomy Status post colonoscopy Family History Mother Alzheimer's dementia Stomach cancer Father Throat cancer Other Family history non-contributory Social History Smoking and tobacco/nicotine status: current every day tobacco/nicotine user cigarettes Packs smoked per day: 0.5 Alcohol intake: current Alcohol intake frequency: 3 or more drinks per day Substance/Drug Use: never Household members: family Housing: House Physical Exam Const: COMMON NORMALS: no acute distress, patient oriented x3, no limitations, alert and well nourished GENERAL APPEARANCE: cooperative Resp: COMMON NORMALS: normal respiratory effort and clear to auscultation bilaterally AUSCULTATION: clear to auscultation bilaterally Cardio: COMMON NORMALS: regular rate and regular rhythm RATE: regular rate RHYTHM: regular rhythm GI: COMMON NORMALS: Normal to inspection, nondistended, normoactive bowel sounds present, Soft to palpation and non-tender PALPATION: Yes Soft to palpation RECTAL EXAM: Yes visual inspection normal Neuro: COMMON NORMALS: patient oriented x3 SENSORIUM/ORIENTATION: Yes alert Course Vital Signs: Vital signs: Vital Signs Temperature 97.9 F 06/13/24 21:21 Pulse Rate 100 06/13/24 21:21 Respiratory Rate 16 06/13/24 21:21 Blood Pressure 102/72 06/13/24 21:21 Pulse Oximetry 96 06/13/24 21:21 MDM - General Adult Medical Decision Making Patient is a 73-year-old male who was just seen in the emergency department earlier today. He was discharged to the waiting room. He reportedly soiled his adult briefs and was having some burning to his buttocks so decided to check back in so nursing staff could change him and place him in a new brief. He states all of his burning has subsided. He now states he has no ride home and would like to stay in his bed overnight to get some sleep . Will reach out to [employer], [employer], etc to help arrange ride for patient. Medical Records I reviewed the patient's medical records. No radiology studies performed this visit Discharge Plan Discharge Patient Disposition: Home Clinical Impression: Fecal soiling due to fecal incontinence Condition: Stable Prescriptions: No Action (DME) foot soak basin See Rx Instructions .Route .MEDSUPPLY Qty: 1 0RF Rx Instructions: As directed to HOME (DME) xavier klein. See Rx Instructions .Route .MEDSUPPLY Qty: 1 0RF Rx Instructions: As directed naltrexone 50 mg tablet 50 mg PO DAILY Qty: 30 2RF loperamide 2 mg Capsule 2 mg PO Q4H PRN (Reason: Diarrhea) Rx Instructions: administer after each loose stool until symptoms controlled; do not exceed 8 mg per 24 hrs escitalopram oxalate [Lexapro] 5 mg tablet 5 mg PO DAILY Qty: 30 0RF atorvastatin 20 mg tablet 20 mg PO QAM Desitin 40 % paste 1 applic topical BID Qty: 57 2RF Discharge Orders: Discharge ED (Routine); Ordered 06/13/24 Ordered By: Yesica Queen Referrals: Medardo Bowers MD [Primary Care Provider] - Print Language: British Coding Level of Care Code ED Computer Support Specialist Instructor for Katrin Mike
== END 2024-06-14 06:20 | disposition home or self-care (01) ==
PROVIDERS: Emergency Provider Physician Assistant; PCP Family Medicine
DX: R15.1 Fecal smearing (principal); F17.210 Nicotine dependence, cigarettes, uncomplicated; J44.9 Chronic obstructive pulmonary disease, unspecified; Z86.73 Personal history of transient ischemic attack (TIA), and cerebral infarction without residual deficits; Z85.048 Personal history of other malignant neoplasm of rectum, rectosigmoid junction, and anus; I10 Essential (primary) hypertension
CPT/HCPCS: 99281

== ENCOUNTER 2024-06-15 16:53 | Emergency (ER) | payer MEDICARE, MEDICAID, SELFPAY ==
[2024-06-15] VITALS (7 sets, daily range): BP systolic 115–120; BP diastolic 70–86; PULSE 60–95; RESP 8; TEMP 36.4; O2SAT 91–98; BMI 17.7
--- NOTE | 2024-06-15 17:04 | ECG_ITS ---
[facility] Mail Test Date: 2024-06-15 Pat Name: Gerardo Millan Department: Room: Gender: Male Meter Tester: : 1950 Requested By: Emmanuel Mendoza Order Number: [id number] Ray MD: Ashwin Marie M.D. Measurements Intervals [place] Rate: 96 P: 82 VT: 132 QRS: 32 QRSD: 78 T: -5 QT: 356 QTc: 450 Interpretive Statements SINUS RHYTHM NONSPECIFIC ST & T-WAVE ABNORMALITY Compared to ECG 04/21/2024 20:33:15 T-wave abnormality now present Atrial fibrillation no longer present ST (T wave) deviation no longer present Electronically Signed On 06-15-2024 19:15:39 CDT by Ashwin Marie M.D. [email or web address]
--- NOTE | 2024-06-15 17:45 | CTR_ITS ---
PROCEDURE INFORMATION: Exam: CT Lumbar Spine Without Contrast Exam date and time: 06/15/2024 6:37 PM Age: 73 years old Clinical indication: Weakness; Additional info: Low back pain, bilateral leg weakness TECHNIQUE: Imaging protocol: Computed tomography of the lumbar spine without contrast. Radiation optimization: All CT scans at this facility use at least one of these dose optimization techniques: automated exposure control; mA and/or kV adjustment per patient size (includes targeted exams where dose is matched to clinical indication); or iterative reconstruction. COMPARISON: CR (PELVIS, ) 06/13/2024 7:26 PM RADIATION DOSE METRICS: Total DLP (mGy-cm): 467.4 FINDINGS: Bones/joints: Severe compression deformity of the T12, L1 and L2 and L3 vertebral bodies which appear chronic in nature. No bony encroachment on the neural foramina. No acute fracture. Lungs: Atelectatic changes versus scarring in the lung bases posteriorly. Gallbladder and biliary ducts: The gallbladder is absent. Soft tissues: Unremarkable. CT/CT lumbar spine wo con* [id number] IMPRESSION: 1. Severe compression deformity of the T12, L1 and L2 and L3 vertebral bodies which appear chronic in nature. 2. No bony encroachment on the neural foramina. 3. No acute fracture.
--- NOTE | 2024-06-15 17:45 | CTR_ITS ---
PROCEDURE INFORMATION: Exam: CT Head Without Contrast Exam date and time: 06/15/2024 6:32 PM Age: 73 years old Clinical indication: Weakness, extremity; Bilateral TECHNIQUE: Imaging protocol: Computed tomography of the head without contrast. Radiation optimization: All CT scans at this facility use at least one of these dose optimization techniques: automated exposure control; mA and/or kV adjustment per patient size (includes targeted exams where dose is matched to clinical indication); or iterative reconstruction. COMPARISON: CT head wo con* [id number] 02/23/2023 4:08 PM RADIATION DOSE METRICS: Total DLP (mGy-cm): 1126.4 FINDINGS: Brain: Age-related brain parenchymal atrophy. Areas of hypoattenuation in the periventricular and subcortical deep white matter likely on the basis of chronic microvascular ischemic changes. No acute intra cranial hemorrhage. No mass effect or midline shift. No definitive CT evidence of acute territorial infarction. Cerebral ventricles: Prominence of the lateral ventricular system likely on the basis of ex vacuo dilatation. Paranasal sinuses: Visualized sinuses are unremarkable. No fluid levels. Mastoid air cells: Visualized mastoid air cells are well aerated. Orbital cavities: Left globe prosthesis. Bones: Intact calvarium. Soft tissues: Unremarkable. CT/CT head wo con* [id number] IMPRESSION: No acute intracranial process. Senescent changes. If there is continued clinical concern for an acute ischemic event then follow up with a brain MRI examination.
--- NOTE | 2024-06-15 17:45 | CTR_ITS ---
PROCEDURE INFORMATION: Exam: CT Cervical Spine Without Contrast Exam date and time: 06/15/2024 6:32 PM Age: 73 years old Clinical indication: Weakness TECHNIQUE: Imaging protocol: Computed tomography of the cervical spine without contrast. Radiation optimization: All CT scans at this facility use at least one of these dose optimization techniques: automated exposure control; mA and/or kV adjustment per patient size (includes targeted exams where dose is matched to clinical indication); or iterative reconstruction. COMPARISON: CT angio headneck* [id number] 02/07/2021 5:37 PM RADIATION DOSE METRICS: Total DLP (mGy-cm): 166.1 FINDINGS: Bones: Grade 1 posterior listhesis of C3 on C4 and C4 on C5. No acute cervical spine fracture. Moderate to severe bilateral neural foraminal narrowing at C3-C4. Old healed fracture deformity of the right clavicle. Lungs: Lung apices are normal. Soft tissues: Unremarkable. CT/CT cervical spin wo con* [id number] IMPRESSION: 1. No acute cervical spine fracture. 2. Degenerative changes, as above.
--- NOTE | 2024-06-15 18:14 | ED_ITS ---
HPI - Weakness 2 General: Chief complaint: Weakness Stated complaint: not feeling well, weakness Time Seen by Provider: 06/15/24 17:36 History of Present Illness: 73-year-old man with a history of depres aline, alcohol abuse chronic weakness, pancreatitis, COPD who presents emergency room with weakness. He says both of his legs feel weak in his thigh area. He can move the bottoms of his legs and his feet. He has chronic back pain. He said when he went out today when he got back he had to be carried up the stairs at home. Review of Systems 2 Narrative: Constitutional symptoms: Negative except as documented in HPI. Skin symptoms: Negative except as documented in HPI. Eye symptoms: Negative except as documented in HPI. ENMT symptoms: Negative except as documented in HPI. Respiratory symptoms: Negative except as documented in HPI. Cardiovascular symptoms: Negative except as documented in HPI. Gastrointestinal symptoms: Negative except as documented in HPI. Genitourinary symptoms: Negative except as documented in HPI. Musculoskeletal symptoms: Negative except as documented in HPI. Neurologic symptoms: Negative except as documented in HPI. Psychiatric symptoms: Negative except as documented in HPI. Endocrine symptoms: Negative except as documented in HPI. PFSH ED 2 PFSH: Medical History Depression Psychiatric care Alcoholic intoxication Peripheral vascular disease Alcohol withdrawal Alcoholic ketoacidosis Hypomagnesemia Alcohol abuse Generalized weakness Anxiety Myocardial infarction Alcoholism Pancreatitis Status post chemoradiation Cholelithiasis Dizziness Anal cancer COPD (chronic obstructive pulmonary disease) Hypertension CVA (cerebral vascular accident) DVT (deep venous thrombosis) Acute dehydration Vomiting Surgical History Status post laparoscopic cholecystectomy (11/13/20) Hx of non-cataract eye surgery Hx of cataract extraction History of ankle surgery History of tonsillectomy Status post colonoscopy Family History Mother Alzheimer's dementia Stomach cancer Father Throat cancer Other Family history non-contributory Social History Smoking and tobacco/nicotine status: current every day tobacco/nicotine user cigarettes Packs smoked per day: 0.5 Alcohol intake: current Alcohol intake frequency: 3 or more drinks per day Substance/Drug Use: never Household members: family Housing: House Physical Exam 2 Narrative: EXAM NARRATIVE: General: Alert, cachectic appearing Skin: Warm, dry. Head: Normocephalic, atraumatic. Neck: Supple, trachea midline. Eye: Extraocular movements are intact. Blindness in left eye Ears, nose, mouth and throat: mucosa moist. Cardiovascular: Regular, Normal peripheral perfusion. Respiratory: Lungs are clear to auscultation, respirations are non-labored, breath sounds are equal, Symmetrical chest wall expansion. Gastrointestinal: Soft, Nontender, Non distended Musculoskeletal: Normal ROM, no deformity. Neurological: Alert and oriented, No focal neurological deficit observed. Psychiatric: Cooperative, appropriate mood & affect. Course 2 Vital Signs: Vital signs: Vital Signs Temperature 97.5 F L 06/15/24 16:58 Pulse Rate 60 06/15/24 20:00 Blood Pressure 120/70 06/15/24 20:00 Pulse Oximetry 91 06/15/24 20:00 Oxygen Delivery Me thod Room Air 06/15/24 16:58 MDM - Weakness Medical Decision Making Medical decision making: Differential diagnosis for patient presenting with generalized weakness including but not limited to and based on the above HPI, review of systems and physical exam: Sepsis. Dehydration. Renal failure. Electrolyte abnormalities. Anemia. Congestive heart failure. Hypotension. Coronary syndrome. Hepatitis. Cirrhosis. Infections such as pneumonia, urinary tract infection, [place] illness, Cellulitis, Viral infections including influenza and Covid-19. Workup: labwork and lab/exam driven imaging ordered to evaluate, rule in and rule out above pathologies. Lab Review: Laboratory results were reviewed and interpreted by myself the emergency room physician. No leukocytosis. No anemia. No renal failure. 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 Blood alcohol level today is 201 CT of the cervical spine: Degenerative changes no fracture. Good alignment. No step-offs. This was reviewed and interpreted by myself the emergency room physician. I also reviewed the radiologist report. CT of the lumbar spine: Degenerative changes. Chronic severe compression fractures. Good alignment. No step-offs. This was reviewed and interpreted by myself the emergency room physician. CT head: Senescent changes. No acute intracranial process. no intracranial hemorrhage, no evidence of infarct. no evidence of acute fracture.This was reviewed and interpreted by myself the ER physician. I reviewed the patient's medical record. Reexamination: Patient remained stable. No increased work of breathing. No altered mental status. No focal motor deficits. Assessment and plan: Alcohol intoxication Generalized weakness Continued alcohol abuse - Discharged home - Discussed plan with patient. Answered any questions. - Evaluation and treatment of this problem were appropriate in the emergency setting. Lab Data 06/15/24 19:00 06/15/24 19:00 Radiology Impressions Cervical Spine CT 06/15/24 17:45 IMPRESSION: 1. No acute cervical spine fracture. 2. Degenerative changes, as above. Head CT 06/15/24 17:45 IMPRESSION: No acute intracranial process. Senescent changes. If there is continued clinical concern for an acute ischemic event then follow up with a brain MRI examination. Lumbar Spine CT 06/15/24 17:45 IMPRESSION: 1. Severe compression deformity of the T12, L1 and L2 and L3 vertebral bodies which appear chronic in nature. 2. No bony encroachment on the neural foramina. 3. No acute fracture. Laboratory Results WBC 7.45 10^3/uL (3.29-11.43) 06/15/24 19:00 RBC 3.80 10^6/uL (3.85-5.65) L 06/15/24 19:00 Hgb 11.60 g/dL (11.27-16.99) 06/15/24 19:00 Hct 36.9 % (37-53) L 06/15/24 19:00 MCV 97.1 fl (82-101) 06/15/24 19:00 MCH 30.5 pg (27-33) 06/15/24 19:00 MCHC 31.4 g/dL (30-55) 06/15/24 19:00 RDW 17.5 % (12.1-15.1) H 06/15/24 19:00 Plt Count 206 10^3/cmm (157-399) 06/15/24 19:00 MPV 9.2 fL (7.4-10.4) 06/15/24 19:00 Neut % (Auto) 63.0 % 06/15/24 19:00 Lymph % (Auto) 25.8 % 06/15/24 19:00 [place] % (Auto) 8.7 % 06/15/24 19:00 Eos % (Auto) 1.3 % 06/15/24 19:00 Baso % (Auto) 0.8 % 06/15/24 19:00 Neut # (Auto) 4.69 10^3/uL (1.8-7.7) 06/15/24 19:00 Lymph # (Auto) 1.9 10^3/uL (0.8-4.8) 06/15/24 19:00 [place] # (Auto) 0.7 10^3/uL (0.2-0.9) 06/15/24 19:00 Eos # (Auto) 0.1 10^3/uL (0.0-0.8) 06/15/24 19:00 Baso # (Auto) 0.1 10^3/uL (0.0-0.1) 06/15/24 19:00 Nucleated RBC % (auto) 0 % 06/15/24 19:00 Nucleated RBCs # 0.0 /100WBC 06/15/24 19:00 ESR 15 mm/hr (0-10) H 06/15/24 19:00 Sodium 141 mmol/L (136-145) 06/15/24 19:00 Potassium 4.1 mmol/L (3.5-5.1) 06/15/24 19:00 Chloride 102 mmol/L (98-107) 06/15/24 19:00 Carbon Dioxide 20 mmol/L (22-29) L 06/15/24 19:00 Anion Gap 23.1 (5-19) H 06/15/24 19:00 BUN 13 mg/dL (8-23) 06/15/24 19:00 Creatinine 0.6 mg/dL (0.7-1.2) L 06/15/24 19:00 GFR Calculation Not Reportable 06/15/24 19:00 Glucose 73 mg/dL (65-115) 06/15/24 19:00 Calculated Osmolality 291 mOsm/kg (285-295) 06/15/24 19:00 Lactic Acid 6.0 mmol/L (0.5-2.2) H* 06/15/24 19:00 Calcium 8.3 mg/dL (8.5-10.5) L 06/15/24 19:00 Total Bilirubin 0.4 mg/dL (0.15-1.2) 06/15/24 19:00 AST 22 U/L (0-40) 03/18/25 19:00 ALT 6 U/L (0-41) 06/15/24 19:00 Alkaline Phosphatase 95 U/L (40-130) 06/15/24 19:00 C-Reactive Protein 24.2 mg/L (0.0-4.9) H 06/15/24 19:00 Total Protein 6.2 g/dL (6.6-8.7) L 06/15/24 19:00 Albumin 3.1 g/dL (3.5-5.2) L 06/15/24 19:00 Globulin 3.1 g/dL (1.3-4.6) 06/15/24 19:00 Procalcitonin 0.06 ng/mL (0-0.5) 06/15/24 19:00 Ethyl Alcohol 219 mg/dL (0-10) H 06/15/24 19:00 Influenza A (PCR) Negative (Negative) 06/15/24 18:19 Influenza Type B (PCR) Negative (Negative) 06/15/24 18:19 RSV (PCR) Negative (Negative) 06/15/24 18:19 SARS-CoV-2 (PCR) Negative (Negative) 06/15/24 18:19 All radiology interpretation(s) finalized by discharge Discharge Plan Discharge Patient Disposition: Home Clinical Impression: Alcohol intoxication, Alcohol abuse, Generalized weakness Condition: Stable Prescriptions: No Action (DME) foot soak basin See Rx Instructions .Route .MEDSUPPLY Qty: 1 0RF Rx Instructions: As directed to HOME (DME) xavier klein. See Rx Instructions .Route .MEDSUPPLY Qty: 1 0RF Rx Instructions: As directed naltrexone 50 mg tablet 50 mg PO DAILY Qty: 30 2RF loperamide 2 mg Capsule 2 mg PO Q4H PRN (Reason: Diarrhea) Rx Instructions: administer after each loose stool until symptoms controlled; do not exceed 8 mg per 24 hrs escitalopram oxalate [Lexapro] 5 mg tablet 5 mg PO DAILY Qty: 30 0RF atorvastatin 20 mg tablet 20 mg PO QAM Desitin 40 % paste 1 applic topical BID Qty: 57 2RF Discharge Orders: Discharge ED (Routine); Ordered 06/15/24 Ordered By: Cyn Giles Referrals: Medardo Bowers MD [Primary Care Provider] - Discharge Diet: Usual diet Discharge Activity: Increase activity as tolerated Patient Instructions: Opioid Safety, Pain Management Activity Restrictions/Additional Instructions: Thank you for choosing [facility] for your healthcare needs today. Please realize this is an emergency room and that we are providing you with a medical screening exam and this may not be complete and all inclusive of all the testing and or work up that you may need to determine your ailment or severity of your illness. You have been screened and evaluated and felt safe for discharge. Health conditions do change or evolve sometimes and as such it is important that you follow up with your Primary Doctor to be re checked, 3-5 days is a general good time frame for follow up. You are always welcome to return to the ED for re assessment if your symptoms are worsening or you have new concerns Print Language: Danish Coding Level of Care Code ED Press Machine Operator for Chg Fwd Related Data Home Medications ?Medication ?Instructions ?Recorded ?Confirmed atorvastatin 20 mg tablet 20 mg PO QAM 09/14/22 loperamide 2 mg capsule 2 mg PO Q4H PRN Diarrhea 03/2304/22/24 Previous Rx's ?Medication ?Instructions ?Recorded foot soak basin #1 ea 12/09/22 park brace. #1 ea 02/18/23 escitalopram oxalate 5 mg tablet 5 mg PO DAILY #30 tab s 03/11/24 (Lexapro) Held on 04/25/24. Instructions: Resume on 05/02/24. hold while on linezolid zinc oxide-cod liver oil 40 % 1 applic topical BID #57 grams 04/25/24 topical paste (Desitin) naltrexone 50 mg tablet 50 mg PO DAILY #30 tabs 05/01 05/25 Allergies Allergy/AdvReac Type Severity Reaction Status Date / Time corn Allergy ADR-Nausea Verified 06/15/24 17:04 [place] Allergy Uknown Verified 06/15/24 17:04 pear Allergy ALGY-Rash Verified 06/15/24 17:04 Penicillins Allergy ALGY-Difficulty Verified 06/15/24 17:04 Breathing
[2024-06-15 19:17] LABS: Basophils # 0.1 10^3/uL (0.0-0.1); Basophils % 0.8 %; Eosinophils # 0.1 10^3/uL (0.0-0.8); Eosinophils % 1.3 %; Hematocrit 36.9 % (37-53); Lymphocytes # 1.9 10^3/uL (0.8-4.8); Lymphocytes % 25.8 %; Mean Corpuscular HGB Conc 31.4 g/dL (30-55); Mean Corpuscular Hemoglobin 30.5 pg (27-33); Mean Corpuscular Volume 97.1 fl (82-101); Mean Platelet Volume 9.2 fL (7.4-10.4); Monocytes # 0.7 10^3/uL (0.2-0.9); Monocytes % 8.7 %; Neutrophils # 4.69 10^3/uL (1.8-7.7); Nucleated Red Blood Cells % 0 %; Platelet Count 206 10^3/cmm (157-399); Red Cell Distribution Width 17.5 % (12.1-15.1); White Blood Count 7.45 10^3/uL (3.29-11.43)
[2024-06-15 19:31] LABS: Erythrocyte Sedimentation Rate 15 mm/hr (0-10)
[2024-06-15 19:36] LABS: Alanine Aminotransferase 6 U/L (0-41); Albumin Level 3.1 g/dL (3.5-5.2); Alcohol Level 219 mg/dL (0-10); Alkaline Phosphatase 95 U/L (40-130); Blood Urea Nitrogen 13 mg/dL (8-23); C Reactive Protein 24.2 mg/L (0.0-4.9); Calcium 8.3 mg/dL (8.5-10.5); Carbon Dioxide 20 mmol/L (22-29); Chloride 102 mmol/L (98-107); Creatinine Clr Calc Pharmacy 70.1498; Globulin 3.1 g/dL (1.3-4.6); Glucose 73 mg/dL (65-115); Osmolality Calculated 291 mOsm/kg (285-295); Sodium 141 mmol/L (136-145); Total Bilirubin 0.4 mg/dL (0.15-1.2); Total Protein 6.2 g/dL (6.6-8.7)
[2024-06-15 19:39] LABS: Anion Gap 23.1 (5-19); Aspartate Amino Transferase 22 U/L (0-40); Potassium 4.1 mmol/L (3.5-5.1)
[2024-06-15 19:43] LABS: Procalcitonin 0.06 ng/mL (0-0.5)
[2024-06-15 20:29] LABS: Influenza A NEGATIVE (Negative); Influenza B NEGATIVE (Negative); Respiratory Syncytial Virus Ce NEGATIVE (Negative); SARS-CoV-2 PCR NEGATIVE (Negative)
[2024-06-15 20:58] LABS: Reflex Lactate Order REFLEX LACTIC ORDERD
== END 2024-06-15 21:30 | disposition home or self-care (01) ==
PROVIDERS: Emergency Provider Emergency Medicine; PCP Family Medicine
DX: R53.1 Weakness (principal); F10.129 Alcohol abuse with intoxication, unspecified; Y90.7 Blood alcohol level of 200-239 mg/100 ml; Z11.52 Encounter for screening for COVID-19; F17.210 Nicotine dependence, cigarettes, uncomplicated; Z86.73 Personal history of transient ischemic attack (TIA), and cerebral infarction without residual deficits; J44.9 Chronic obstructive pulmonary disease, unspecified; Z85.048 Personal history of other malignant neoplasm of rectum, rectosigmoid junction, and anus; I10 Essential (primary) hypertension
CPT/HCPCS: 36415; 70450; 72125; 72131; 80053; 80307; 83605; 84145; 85025; 85651; 86140; 87040; 87637; 93005; 99284

== ENCOUNTER 2024-06-18 21:13 | Emergency (ER) | payer MEDICARE, MEDICAID, SELFPAY ==
[2024-06-18 21:21] VITALS: BP 90/66; PULSE 106; RESP 20; TEMP 36.6; O2SAT 98
--- NOTE | 2024-06-18 23:02 | XRR_ITS ---
PROCEDURE INFORMATION: Exam: XR Left Elbow Exam date and time: 06/18/2024 11:05 PM Age: 73 years old Clinical indication: Pain; Left; Prior surgery; Surgery date: 6+ months; Surgery type: Lt humerus; Skin tear to lt elbow post fall TECHNIQUE: Imaging protocol: Radiologic exam of the left elbow. Views: 1 or 2 views. COMPARISON: CR (UP EXM, ) 06/13/2024 7:19 PM FINDINGS: Bones/joints: Postoperative changes from internal fixation of chronic healed humeral diaphyseal fracture. No acute fracture. Normal alignment. Soft tissues: Normal. XR/XR elbow LT 2V [id number] IMPRESSION: No acute osseous abnormality.
--- NOTE | 2024-06-18 23:02 | CTR_ITS ---
PROCEDURE INFORMATION: Exam: CT Head Without Contrast Exam date and time: 06/18/2024 11:11 PM Age: 73 years old Clinical indication: Injury or trauma; Blunt trauma (contusions or hematomas); EMS arrival for fall at home. ETOH on board. ; Additional info: Fall, intoxicated ETOH TECHNIQUE: Imaging protocol: Computed tomography of the head without contrast. Radiation optimization: All CT scans at this facility use at least one of these dose optimization techniques: automated exposure control; mA and/or kV adjustment per patient size (includes targeted exams where dose is matched to clinical indication); or iterative reconstruction. COMPARISON: CT head wo con* [id number] 06/15/2024 6:32 PM RADIATION DOSE METRICS: Total DLP (mGy-cm): 1039.33 FINDINGS: Brain: Parenchymal volume loss. Scattered white matter hypodensities within periventricular and subcortical white matter, compatible with chronic microvascular ischemic changes. No acute intracranial hemorrhage, mass effect or midline shift. Cerebral ventricles: Ex vacuo dilatation of lateral ventricles. Paranasal sinuses: Visualized sinuses are unremarkable. No fluid levels. Mastoid air cells: Visualized mastoid air cells are well aerated. Bones: Unremarkable. No acute fracture. Soft tissues: Unremarkable. CT/CT head wo con* [id number] IMPRESSION: No acute intracranial abnormality.
--- NOTE | 2024-06-18 23:02 | XRR_ITS ---
PROCEDURE INFORMATION: Exam: XR Chest Exam date and time: 06/18/2024 11:05 PM Age: 73 years old Clinical indication: Chest pressure; SOB; Chest pain after fall TECHNIQUE: Imaging protocol: Radiologic exam of the chest. Views: 1 view. COMPARISON: 1. CT angio chest w abd pel w con 04/23/2024 3:53 AM 2. CR XR chest 1V portable [id number] 04/21/2024 11:09 PM FINDINGS: Lungs: Left lower lobe retrocardiac atelectasis versus scar with little change from prior. Pleural spaces: Unremarkable. No pleural effusion. No pneumothorax. Heart/Mediastinum: Unremarkable. No cardiomegaly. Bones/joints: Multiple old bilateral healed rib fractures and healed fracture deformity of the right clavicle and proximal humerus. Possible acute nondisplaced left 7th anterior rib fracture. XR/XR chest 1V portable [id number] IMPRESSION: 1. Left lower lobe retrocardiac atelectasis versus scar with little change from prior. 2. Possible acute nondisplaced left 7th anterior rib fracture. Correlate clinically.
--- NOTE | 2024-06-18 23:02 | CTR_ITS ---
PROCEDURE INFORMATION: Exam: CT Cervical Spine Without Contrast Exam date and time: 06/18/2024 11:14 PM Age: 73 years old Clinical indication: Injury or trauma; Blunt trauma; EMS arrival for fall at home. ETOH on board. ; Additional info: Fall, ETOH intoxication TECHNIQUE: Imaging protocol: Computed tomography of the cervical spine without contrast. Radiation optimization: All CT scans at this facility use at least one of these dose optimization techniques: automated exposure control; mA and/or kV adjustment per patient size (includes targeted exams where dose is matched to clinical indication); or iterative reconstruction. COMPARISON: CT cervical spin wo con* [id number] 06/15/2024 6:32 PM RADIATION DOSE METRICS: Total DLP (mGy-cm): 375.47 FINDINGS: Bones: No compression deformity or traumatic subluxation. Grade 1 retrolisthesis of C3 on C4 and C4 on C5. Moderate to severe bilateral neural foraminal stenosis at C3-C4 level. Partially visualized old healed fracture of right clavicle. Lungs: Lung apices are normal. Soft tissues: Unremarkable. CT/CT cervical spin wo con* [id number] IMPRESSION: No compression deformity or traumatic subluxation within cervical spine.
[2024-06-18 23:23] VITALS: BP 112/71; PULSE 72; RESP 17; O2SAT 99
[2024-06-19 00:55] VITALS: BP 89/57; PULSE 72; RESP 17; O2SAT 98
[2024-06-19 01:21] VITALS: BP 120/58; PULSE 75; RESP 18; O2SAT 98
[2024-06-19 02:10] VITALS: BP 92/61; PULSE 77; RESP 17; O2SAT 95
--- NOTE | 2024-06-19 03:40 | ED_ITS ---
HPI - Fall General: Chief Complaint: Fall Stated Complaint: FALL Time Seen by Provider: 06/18/24 22:06 Source: EMS Mode of arrival: EMS Limitations: no limitations History of Present Illness: Patient is a alcoholic, well-known to this ER. Comes in after a fall has skin tear left elbow. Full musculoskeletal exam yields no tenderness except for only a skin tear of the elbow. Patient is alert and oriented to person place. MD complaint: fall Related Data Home Medications ?Medication ?Instructions ?Recorded ?Confirmed atorvastatin 20 mg tablet 20 mg PO QAM 09/14/22 loperamide 2 mg capsule 2 mg PO Q4H PRN Diarrhea 03/2304/22/24 Previous Rx's ?Medication ?Instructions ?Recorded foot soak basin #1 ea 12/09/22 park brace. #1 ea 02/18/23 escitalopram oxalate 5 mg tablet 5 mg PO DAILY #30 tab s 03/11/24 (Lexapro) Held on 04/25/24. Instructions: Resume on 05/02/24. hold while on linezolid zinc oxide-cod liver oil 40 % 1 applic topical BID #57 grams 04/25/24 topical paste (Desitin) naltrexone 50 mg tablet 50 mg PO DAILY #30 tabs 05/01 05/25 Allergies Allergy/AdvReac Type Severity Reaction Status Date / Time corn Allergy ADR-Nausea Verified 06/15/24 17:04 [place] Allergy Uknown Verified 06/15/24 17:04 [place] Allergy ALGY-Rash Verified 06/15/24 17:04 Penicillins Allergy ALGY-Difficulty Verified 06/15/24 17:04 Breathing Review of Systems General: Reports: ROS unobtainable due to mental status (Alcohol intoxication) [facility] ED PFSH: Medical History Depression Psychiatric care Alcoholic intoxication Peripheral vascular disease Alcohol withdrawal Alcoholic ketoacidosis Hypomagnesemia Alcohol abuse Generalized weakness Anxiety Myocardial infarction Alcoholism Pancreatitis Status post chemoradiation Cholelithiasis Dizziness Anal cancer COPD (chronic obstructive pulmonary disease) Hypertension CVA (cerebral vascular accident) DVT (deep venous thrombosis) Acute dehydration Vomiting Surgical History Status post laparoscopic cholecystectomy (11/13/20) Hx of non-cataract eye surgery Hx of cataract extraction History of ankle surgery History of tonsillectomy Status post colonoscopy Family History Mother Alzheimer's dementia Stomach cancer Father Throat cancer Other Family history non-contributory Social History Smoking and tobacco/nicotine status: current every day tobacco/nicotine user cigarettes Packs smoked per day: 0.5 Alcohol intake: current Alcohol intake frequency: 3 or more drinks per day Substance/Drug Use: never Household members: family Housing: House Physical Exam Narrative: EXAM NARRATIVE: General: Alert, cachectic appearing Skin: Warm, dry. Skin tear left elbow, senile bruising to all 4 extremities Head: Normocephalic, atraumatic. Neck: Supple, trachea midline. Eye: Extraocular movements are intact. Blindness in left eye Ears, nose, mouth and throat: mucosa moist. Cardiovascular: Regular, Normal peripheral perfusion. Respiratory: Lungs are clear to auscultation, respirations are non-labored, breath sounds are equal, Symmetrical chest wall expansion. Gastrointestinal: Soft, Nontender, Non distended Musculoskeletal: Normal ROM, no deformity. Neurological: Alert and oriented, No focal neurological deficit observed. Psychiatric: Cooperative, appropriate mood & affect. Course Vital Signs: Vital signs: Vital Signs Temperature 98 F 06/18/24 21:21 Pulse Rate 77 06/19/24 02:10 Respiratory Rate 17 06/19/24 02:10 Blood Pressure 92/61 06/19/24 02:10 Pulse Oximetry 95 06/19/24 02:10 Oxygen Delivery Me thod Room Air 06/19/24 02:10 Oxygen Flow Rate 3 06/19/24 00:55 MDM - Fall Medical Decision Making Patient had a fall likely due to level of intoxication. Chronic alcohol use. Has a roommate at home. They take care of each other. His roommate sent him up here for a fall. Patient examined for multiple hours here in the ER, heart rate has improved along with respiratory rate. Blood pressure is is normal. He is satting 95% on room air and afebrile. No chest wall pain, unsure acuity of left seventh rib fracture Medical Records I reviewed the patient's medical records. Lab Data Radiology Impressions Cervical Spine CT 06/18/24 23:02 IMPRESSION: No compression deformity or traumatic subluxation within cervical spine. Chest X-Ray 06/18/24 23:02 IMPRESSION: 1. Left lower lobe retrocardiac atelectasis versus scar with little change from prior. 2. Possible acute nondisplaced left 7th anterior rib fracture. Correlate clinically. Elbow X-Ray 06/18/24 23:02 IMPRESSION: No acute osseous abnormality. Head CT 06/18/24 23:02 IMPRESSION: No acute intracranial abnormality. All radiology interpretation(s) finalized by discharge Discharge Plan Discharge Patient Disposition: Home Clinical Impression: Skin tear of elbow without complication, Protein calorie malnutrition, Chronic alcoholism Condition: Stable Prescriptions: No Action (DME) foot soak basin See Rx Instructions .Route .MEDSUPPLY Qty: 1 0RF Rx Instructions: As directed to HOME (DME) park brace. See Rx Instructions .Route .MEDSUPPLY Qty: 1 0RF Rx Instructions: As directed naltrexone 50 mg tablet 50 mg PO DAILY Qty: 30 2RF loperamide 2 mg Capsule 2 mg PO Q4H PRN (Reason: Diarrhea) Rx Instructions: administer after each loose stool until symptoms controlled; do not exceed 8 mg per 24 hrs escitalopram oxalate [Lexapro] 5 mg tablet 5 mg PO DAILY Qty: 30 0RF atorvastatin 20 mg tablet 20 mg PO QAM Desitin 40 % paste 1 applic topical BID Qty: 57 2RF Discharge Orders: Discharge ED (Routine); Ordered 06/19/24 Ordered By: Vern Perkins Referrals: Medardo Bowers MD [Primary Care Provider] - Discharge Diet: Usual diet Discharge Activity: Resume usual activity Patient Instructions: Skin Tear (ED) Print Language: Cuban Coding Level of Care Code ED Supervisor Frame Sample And Pattern for Katrin Mike
[2024-06-19 05:26] VITALS: BP 100/65; PULSE 100; RESP 20; O2SAT 96
== END 2024-06-19 05:27 | disposition home or self-care (01) ==
PROVIDERS: Emergency Provider Emergency Medicine; PCP Family Medicine
DX: S51.012A Laceration without foreign body of left elbow, initial encounter (principal); E46 Unspecified protein-calorie malnutrition; F10.20 Alcohol dependence, uncomplicated; F17.210 Nicotine dependence, cigarettes, uncomplicated; Z86.73 Personal history of transient ischemic attack (TIA), and cerebral infarction without residual deficits; J44.9 Chronic obstructive pulmonary disease, unspecified; Z85.048 Personal history of other malignant neoplasm of rectum, rectosigmoid junction, and anus; W19.XXXA Unspecified fall, initial encounter
CPT/HCPCS: 70450; 71045; 72125; 73070; 99284

== ENCOUNTER 2024-07-08 12:37 | Outpatient (RCR) | payer MEDICARE, MEDICAID, SELFPAY | END 2024-07-28 23:59 | disposition home or self-care (01) | LOC: SPT 12:37 | PROVIDERS: PCP Family Medicine; Visit Provider Family Medicine | DX: M62.81 Muscle weakness (generalized) (principal) | CPT/HCPCS: 97110; 97161 ==

== ENCOUNTER → 2024-07-14 13:22 | Outpatient (BNVA) | payer OTHER, SELFPAY | PROVIDERS: PCP Family Medicine; Visit Provider Psychiatry & Neurology Psychiatry | DX: F33.2 Major depressive disorder, recurrent severe without psychotic features (principal); F10.20 Alcohol dependence, uncomplicated | CPT/HCPCS: 80061; 83036 ==

== ENCOUNTER 2024-07-29 05:00 | Outpatient (RCR) | payer MEDICARE, MEDICAID, SELFPAY ==
[2024-07-27 10:46] VITALS: BP 89/69; BMI 16.4
== END 2024-08-28 23:59 | disposition home or self-care (01) ==
LOC: SPT 05:00
PROVIDERS: PCP Family Medicine; Visit Provider Family Medicine
DX: M62.81 Muscle weakness (generalized) (principal)
CPT/HCPCS: 97110

== ENCOUNTER 2024-08-29 05:00 | Outpatient (RCR) | payer MEDICARE, MEDICAID, SELFPAY ==
[2024-07-27 10:46] VITALS: BP 89/69; BMI 16.4
== END 2024-09-17 09:01 | disposition home or self-care (01) ==
LOC: SPT 05:00
PROVIDERS: PCP Family Medicine; Visit Provider Family Medicine
DX: M62.81 Muscle weakness (generalized) (principal)
CPT/HCPCS: 97110

== ENCOUNTER 2024-10-22 20:08 | Emergency (ER) | payer MEDICARE, MEDICAID, SELFPAY ==
[2024-07-27 10:46] VITALS: BP 89/69; BMI 16.4
--- OUTSIDE RECORDS SUMMARY | 2024-10-22 20:32 | XMS_ITS | Data Portability ---
Author Organization MICHAEL Denilson Man [facility], [place] [facility] Address [address] [place] [address] Assessment No assessment recorded. Plan of Treatment Reminders Order Date Submit Date Provider Last Modified By Organization Details Last Modified Time Details Appointments RECHECK 15 2024 02:30P Christoph Bowers MD Not available Not available Not available Lab JACQUELYN + rf (antinuc lear antibodi es + rheumato id factor), quantita tive, serum 2024 025 [email or web address] [facility], [address] [place] [address], [address] [place], [address], 07/19/2024 09:56:03 C-reacti ve protein, quantita tive, serum or plasma 2024 025 EDNA [facility], [address] [place] [address], [address], [place], [address], 07/17/2024 16:20:23 ESR (erythro cyte sediment ation rate), blood 2024 025 [facility]), [address] [place], [address], 07/13/2024 09:42:13 CMP, serum or plasma 2024 025 [facility], [address] [facility], [address], [address], 07/12/2024 17:56:30 CBC 2024 025 [facility], [address], [address], [place], [address], 07/12/2024 17:40:55 Referral rheumato logist referral 2024 025 [email or web address] [facility] (Rheumatology) , [address], [address], [place], [address], 08/02/2024 15:30:17 physical therapis t referral 2024 025 [email or web address] [facility], [address] [place], [address], 08/04/2024 10:26:22 Procedures None recorded . Surgeries None recorded . Imaging CT, head, w/wo contrast 2024 025 [email or web address] [facility] (Scheduling Orders), [address], [place], [address], 04/28/2024 08:51:40 Medication Orders None recorded . Patient TargetsNo targets recorded. 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 for Pain of multiple joints Referring Physician: [facility], Encounter Date: 07/12/2024 Results Created Date Observation Date Name Description Value Unit Range Abnormal Flag Note LastModifiedBy Organization Detail LastModifiedTime 07/13/1907/12/2024 CBC WBC 11.0 x10 4.5-10 .5 high Not Available [facility] [address], [place], [address], 07/12/2024 17:40:55 07/13/19 25 07/12/2024 CBC RBC 3.64 x10 4.30-5 .90 low Not Available [facility] [address] [facility] 1, [place], [address], 07/12/2024 17:40:55 07/13/19 25 07/12/2024 CBC HGB 11.0 g/dL 13.5-1 8.0 low Not Available [facility] [address] [facility] 1, [place], [address], 07/12/2024 17:40:55 07/13/19 25 07/12/2024 CBC HCT 34.6 % 35.0-6 0.0 low Not Available [facility] [address] [facility] 1, [place], [address], 07/12/2024 17:40:55 07/13/19 25 07/12/2024 CBC MCV 95.1 fL 80.0-9 9.9 Not Available [facility] [address] [facility] 1, [place], [address], 07/12/2024 17:40:55 07/13/19 25 07/12/2024 CBC MCH 30.2 pg 27.0-3 2.0 Not Available [facility] [address] [facility] 1, [place], [address], 07/12/2024 17:40:55 07/13/19 25 07/12/2024 CBC MCHC 31.8 g/dL 32.0-3 6.0 low Not Available [facility] [address] [facility] 1, [place], [address], 07/12/2024 17:40:55 07/13/19 25 07/12/2024 CBC RDW 17.9 % 11.5-1 4.5 high Not Available [facility] [address] [facility] 1, [place], [address], 07/12/2024 17:40:55 07/13/19 25 07/12/2024 CBC plt 245.5 x10 150.0- 451.0 Not Available [facility] [address] [facility] 1, [place], [address], 07/12/2024 17:40:55 07/13/19 25 07/12/2024 CBC lymphocytes % 18.3 % 20.0-5 0.0 low Not Available [facility] [address] [facility], [place], [address], 07/12/2024 17:40:55 07/13/19 25 07/12/2024 CBC granulcytes % 69.6 % 30.0-7 0.0 Not Available [facility] [address] [facility] 1, [place], [address], 07/12/2024 17:40:55 07/13/19 25 07/12/2024 CBC monocytes % 11.2 % 2.0-16 .0 Not Available [facility] [address] [facility] [address], [place], [address], 07/12/2024 17:40:55 07/13/19 25 07/12/2024 CBC granulcytes# 7.7 x10 Not Brit ilable [facility] [address] [facility] [address], [place], [address], 07/12/2024 17:40:55 07/13/19 25 07/12/2024 CBC lymphocytes # 2.0 x10 Not Available [facility] [address] [facility] [address], [place], [address], 07/12/2024 17:40:55 07/13/19 25 07/12/2024 CBC monocytes # 1.2 x10 Not Avai lable [facility] [address] [facility], [place], [address], 07/12/2024 17:40:55 07/13/19 25 07/12/2024 CMP (MALE ) glucose 113.0 mg/dL 60.0-9 9.0 high Not Available [facility] [address] [facility] 1, [place], [address], 07/12/2024 17:56:30 07/13/19 25 07/12/2024 CMP (MALE ) BUN (blood urea nitrogen) 17.0 mg/dL 10.0-2 6.0 Not Available [facility] [address] [facility] 1, [place], [address], 07/12/2024 17:56:30 07/13/19 25 07/12/2024 CMP (MALE ) creatinine (serum) 0.8 mg/dL 0.4-1. 5 Not Available [facility] [address] [address], [place], [address], 07/12/2024 17:56:30 07/13/19 25 07/12/2024 CMP (MALE ) BUN/creatini ne ratio 21.25 ratio Not Available [address] [address], [place], [address], 07/12/2024 17:56:30 07/13/19 25 07/12/2024 CMP (MALE ) eGFR calculated 100.7 Not Available [facility] [address] [address], [place], [address], 07/12/2024 17:56:30 07/13/19 25 07/12/2024 CMP (MALE ) total protein 6.9 g/dL 6.0-8. 5 Not Available [facility] [address] [address], [place], [address], 07/12/2024 17:56:30 07/13/19 25 07/12/2024 CMP (MALE ) total bilirubin 0.7 mg/dL 0.2-1. 3 Not Available [facility] [address] [facility] [address], [place], [address], 07/12/2024 17:56:30 07/13/19 25 07/12/2024 CMP (MALE ) albumin 3.6 g/dL 3.5-5. 5 Not Available [facility] [address] [facility] [address], [place], [address], 07/12/2024 17:56:30 07/13/19 25 07/12/2024 CMP (MALE ) globulin 3.3 calc Not Available [facility] [address] [facility] [address], [place], [address], 07/12/2024 17:56:30 07/13/19 25 07/12/2024 CMP (MALE ) AST (SGOT) 42.0 U/L 0.0-46 .0 Not Available [facility] [address] [facility] [address], [place], [address], 07/12/2024 17:56:30 07/13/19 25 07/12/2024 CMP (MALE ) altv (SGPT) 16.0 U/L 13.0-6 9.0 normal Not Available [facility] [address] [facility] [address], [place], [address], 07/12/2024 17:56:30 07/13/19 25 07/12/2024 CMP (MALE ) A/G ratio 1.1 ratio Not Available [facility] [address] [facility] [address], [place], [address], 07/12/2024 17:56:30 07/13/19 25 07/12/2024 CMP (MALE ) ALP phos 70.0 U/L 30.0-1 40.0 normal Not Available [facility] [address] [facility] 1, [place], [address], 07/12/2024 17:56:30 07/13/19 25 07/12/2024 CMP (MALE ) calcium 8.6 mg/dL 8.4-10 .5 Not Available [facility] [address] [facility] [address], [place], [address], 07/12/2024 17:56:30 07/13/19 25 07/12/2024 CMP (MALE ) sodium 135.0 mmol/ L 136.0- 145.0 low Not Available [facility] [address] [facility] [address], [place], [address], 07/12/2024 17:56:30 07/13/19 25 07/12/2024 CMP (MALE ) potassium 3.7 mmol/ L 3.5-5. 1 Not Available [facility] [address] [facility] [address], [place], [address], 07/12/2024 17:56:30 07/13/19 25 07/12/2024 CMP (MALE ) chloride 99.0 mmol/ L 98.0-1 10.0 normal Not Available [facility] [address] [facility] [address], [place], [address], 07/12/2024 17:56:30 07/13/19 25 07/12/2024 CMP (MALE ) C02 28.0 mmol/ L 22.0-3 1.0 Not Available [facility] [address] [facility] [address], [place], [address], 07/12/2024 17:56:30 07/13/19 25 07/12/2024 CMP (MALE ) anion gap 8.0 calc Not Available [facility] [address] [facility] [address], [place], [address], 07/12/2024 17:56:30 07/13/19 25 07/12/2024 CMP (MALE ) osmolality 281.3 calc Not Available [facility] [address] [facility] [address], [place], [address], 07/12/2024 17:56:30 07/13/19 25 07/17/2024 JACQUELYN,I FA, CASCA DE AND RHEUM ATOID ARTHR ITIS PANEL 2, WITH REFLE XES JACQUELYN screen, ifa NEGATI VE negati ve normal JACQUELYN IFA is a first line scree n for detec ting the prese nce of up to appro ximat odessa 150 autoa ntibo dies in vario us autoi mmune disea ses. A negat luann JACQUELYN IFA resul t sugge sts an JACQUELYN-a ssoci ated autoi mmune disea se is not prese nt at this time, and does not refle x furth er. If there is high clini annie suspi cion for Sjogr en's syndr ome, testi ng for anti- SS-A/ Ro antib kayode shoul d be consi dered . Anti- She-1 antib kayode shoul d be consi dered for clini sugey suspe cted infla mmato ry myopa harvinder . AC-0: Negat luann Inter natio nal Conse nsus on JACQUELYN Patte rns (http s://d oi.or g/10. 1515/ ccl- 2017- 0052) For addit ional infor nirmal salas e refer to http: //[facility] [place].Que stDia gnost ics.c om/fa q/FAQ 177 (This link is being provi ded for infor willy nal/ educa velvet l purpo ses only. ) Not Available [facility] [address], [place], [address], 07/17/2024 16:20:22 07/13/19 25 07/17/2024 JACQUELYN,I FA, CASCA DE AND RHEUM ATOID ARTHR ITIS PANEL 2, WITH REFLE XES rheumatoid factor <10 IU/mL <14 normal Not Available [facility] [address] [address] [place], [address], 07/17/2024 16:20:22 07/13/19 25 07/17/2024 JACQUELYN,I FA, CASCA DE AND RHEUM ATOID ARTHR ITIS PANEL 2, WITH REFLE XES cyclic citrullinate d peptide (ccp) Ab (IgG) 25 units high Refer ence Range Negat luann: <20 Weak Posit luann: 20-39 Moder ate Posit luann: 40-59 Stron g Posit luann: >59 Not Available [address], [address], 07/17/2024 16:20:22 07/13/19 25 07/17/2024 JACQUELYN,I FA, CASCA DE AND RHEUM ATOID ARTHR ITIS PANEL 2, WITH REFLE XES mutated citrullinate d vimentin (MCV) Ab <20 U/mL <20 Anti- mutat ed citru llina nell vimen tin antib kayode may be used as a secon d-dean e marke r of rheum atoid arthr itis, in addit ion to rheum atoid facto r and anti- cycli c citru llina nell pepti de (CCP) . Not Available [facility] [address], [address], 07/17/2024 16:20:22 07/13/19 25 07/17/2024 C-MARTINA CTIVE PROTE IN C-reactive protein 18.8 mg/L <8.0 high Not Available [address], [address], 07/17/2024 16:20:23 07/14/19 25 07/13/2024 ESR (eryt hrocy te sedim entat ion rate) , blood SedRate 23 Not Available [facility] [address] [place] [address], [address], 07/12/2024 17:07:18 Result Notes None recorded. Problems Name Problem SNOMED Code Status Onset Date Resolution Date Notes Provider Name and Address Organization Details Recorded Time History of cerebrovasc ular accident 310197331 Active 2022 LESLEY BOBO null, [facility] 5 16:36:04 Alcoholism 5621993 Active 2022 LESLEY BOBO null, [facility] 5 16:36:04 Unexplained weight loss 184502303 Active 2022 LESLEY BOBO null, [facility] 5 16:36:04 Recurrent falls 337675371 Active 2022 LESLEY BOBO null, [facility] 5 16:36:04 General unsteadines s 193668883 Active 2022 LESLEY BOBO null, [facility] 5 16:36:04 Multiple nodules of lung 091659241 Active 2022 LESLEY BOBO null, [facility] 5 16:36:04 Muscle weakness 38573679 Active 2023 LESLEY BOBO null, [facility] 5 16:36:04 Unintention al weight loss 352334034 Active 2023 [facility] 16:36:04 Moderate protein-annie orie malnutritio n (weight for age 60-74 percent of standard) 045608515 Active 2023 LESLEY BOBO null, [facility] 5 16:36:04 Paresis of left lower limb 9795814136272 9104 Active 2024 LESLEY BOBO null, [facility] 5 16:36:04 Poor short-term memory 341456247 Active 2024 [facility] 16:36:04 Pain of multiple joints 33195437 Active 2024 [facility] [place] 5 15:07:16 Chronic hypotension 21496955 Active 2024 L[facility] HERNANDEZSENA [facility] [place] 5 15:07:17 Problem Notes None recorded. Medical Equipment None Reported. Allergies Allergen ID Allergen Name Allergen Category Reaction Reaction Severity Criticality Documentation Date Start Date Code Code System Note Provider Name and Address Organization Details Recorded Time 907 Product containin g penicilli n (product) medicatio n anaphylax is severe high 07/01/2022 33281 8001 SNOMED [facility] [place] 4 10:46:28 Medications Name Sig Start Date Stop Date Status Note LastModified by Organization Details LastModified Time atorvasta tin 20 mg tablet TAKE 1 TABLET BY MOUTH EVERY DAY active Not Available Not Available No t Available hydrocodo ne 5 mg-acetam inophen 325 mg tablet TAKE 1 TABLET BY MOUTH EVERY 4 HOURS NEEDED FOR LEFT HUMERUS FRACTURE FOR 5 DAYS 12/18 completed Not Available Not Available Not Available naltrexon e 50 mg tablet TAKE 1 TABLET BY MOUTH EVERY DAY active Not Available Not Available No t Available fluoroura cil 5 % topical cream apply A SMALL AMOUNT directly TO affected AREA FOR THREE WEEKS TWICE DAILY friday THROUGH 12/17 completed Not Available Not Available Not Available thiamine HCl (vitamin B1) 100 mg tablet TAKE ONE TABLET BY MOUTH DAILY 12/25 completed Not Available Not Available Not Available linezolid 600 mg tablet TAKE 1 TABLET BY MOUTH TWICE DAILY FOR 7 DAYS 07/12 completed Not Available Not Available Not Available pantopraz ole 40 mg tablet,de layed release TAKE 1 TABLET BY MOUTH DAILY BEFORE BREAKFAS T 07/12 completed Not Available Not Available Not Available nitroglyc grant 0.4 mg sublingua l tablet DISSOLVE 1 TABLET UNDER THE TONGUE EVERY 5 MINUTES NEEDED FOR CHEST PAIN. DO NOT EXCEED A TOTAL OF 3 DOSES IN 15 MINUTES. active Not Available Not Available No t Available folic acid 1 mg tablet TAKE 1 TABLET BY MOUTH DAILY FOR 30 DAYS 07/12 completed Not Available Not Available Not Available mirtazapi ne 15 mg tablet Take 1 tablet every day by oral route for 30 days. 07/12 completed Not Available Not Available Not Available albuterol sulfate HFA 90 mcg/actua tion aerosol inhaler Inhale 2 puffs every 4 hours by inhalati on route. 2023 active Not Available Not Available Not Avai lable ondansetr on 4 mg disintegr ating tablet DISSOLVE 1 TABLET ON THE TONGUE EVERY 8 HOURS FOR 4 DAYS NEEDED FOR NAUSEA OR VOMITING 12/25 completed Not Available Not Available Not Available cefdinir 300 mg capsule TAKE 1 CAPSULE BY MOUTH TWICE DAILY FOR 2 DAYS 05/24 completed Not Available Not Available Not Available Adult Low Dose Aspirin 81 mg tablet,de layed release Take 1 tablet every day by oral route for 90 days. 07/12 completed Gets OTC. Not Available Not Available Not Available escitalop susu 5 mg tablet 07/12 completed Not Available Not Available Not Available aspirin 12/25 completed daily; 0; Recorded 02/22/20 21 3:59PM by Umm Jacobs RN, Office Visit; Not Available Not Available Not Available Allergy Medicatio n 12/25 completed daily; 0; Recorded 02/22/20 21 3:59PM by Umm Jacobs RN, Office Visit; Not Available Not Available Not Available Nitrostat 12/25 completed As needed.; 0; Recorded 02/22/20 21 3:59PM by Umm Jacobs RN, Office Visit; Not Available Not Available Not Available Vitamins and Minerals 07/12 completed Not Available Not Available Not Available Vitamin B-1 (mononitr ate) 100 mg tablet TAKE 1 TABLET BY MOUTH DAILY FOR 30 DAYS 07/12 completed Not Available Not Available Not Available Slow-Mag 71.5 mg tablet,de layed release TAKE TWO TABLETS BY MOUTH EVERY OTHER DAY 12/25 completed Not Available Not Available Not Available Vitals Date Recorded Body height Body mass index (BMI) Body weight Oxygen saturation Oxygen saturation in Arterial blood by Pulse oximetry Heart rate Systolic And Diastolic Provider Name and Address Organization Details Last Updated DateTime 5 182.88 cm 17.8 kg/m2 44801.6 g 98 % 98 % 88 /min 110/70 mm[Hg] WALLACE PINON [facility] 5 16:34:34 Date Recorded Body height Oxygen saturation Oxygen saturation in Arterial blood by Pulse oximetry Heart rate Systolic And Diastolic Provider Name and Address Organization Details Last Updated DateTime 5 182.88 cm 95 % 95 % 111 /min 110/70 mm[Hg] WALLACE PINON [facility] 5 14:25:49 Date Recorded Body height Heart rate Systolic And Diastolic Provider Name and Address Organization Details Last Updated DateTime 07/12/2024 182.88 cm 124 /min 87/59 mm[Hg] [facility] 07/12/2024 16:31:59 Date Recorded Body height Body mass index (BMI) Body weight Heart rate Systolic And Diastolic Provider Name and Address Organization Details Last Updated DateTime 10/12/2024 182.88 cm 16.5 kg/m2 44828.27 g 74 /min 102/80 mm[Hg] L[facility]LEY [facility] 5 15:11:22 Date Recorded Body weight Oxygen saturation Oxygen saturation in Arterial blood by Pulse oximetry Heart rate Systolic And Diastolic Provider Name and Address Organization Details Last Updated DateTime 4 16281.2 3 g 95 % 95 % 93 /min 100/70 mm[Hg] WALLACE PINON [facility] 4 16:22:33 Social History Question Answer Notes LastModified by Organizat ion Details LastModified Time Tobacco Smoking Status Current Every Day Smoker [facility]ALLACE PIN[facility] 07/01/2022 16:38:30 What Was The Date Of Your Most Recent Tobacco Screening? 10/12/2024 [email or web address] Information not available 10/12/2024 Sex: Unknown Functional Status Question Answer Note LastModified by Organizat ion Details LastModified Time How many times per week do you consume alcohol? 5-7 times per week [email or web address] Information not available 07/01/2022 Do you use any illicit or recreational drugs? No Information not available 07/01/2022 What is your level of alcohol consumption? Moderate [email or web address] Information not available 07/01/2022 Mental Status None recorded. Family History Relationship Description Onset Age of this Age Resolved Age Notes LastModified by Organization Details LastModified Time Mother Cerebrovascu lar accident [email or web address] Not available 15:12:33 Mother Alzheimer's disease [email or web address] Not available 10/12 15:12:43 Mother Malignant tumor of colon [email or web address] Not available 10/12 15:13:02 Father Malignant tumor of neck [email or web address] Not available 10/12 15:13:12 Medical History No medical history recorded. Immunizations Vaccine Type Date Status Note Provider Nam e and Address Organization Details Recorded Time Influenza, split virus, quadrivalent, preservative 4 completed Dena oconnell [facility] 12/18/2023 10:46:50 zoster recombinant 2 completed Dena oconnell [facility] 12/18/2023 10:46:50 Influenza, high-dose, quadrivalent, PF 2 completed Dena oconnell [facility] 12/18/2023 10:46:50 Influenza, adjuvanted, quadrivalent, PF 3 completed Dena oconnell [facility] 12/18/2023 10:46:50 Influenza, adjuvanted, quadrivalent, PF 1 completed Dena oconnell [facility] 12/18/2023 10:46:50 COVID-19, mRNA, LNP-S, PF, 100 mcg/0.5mL dose or 50 mcg/0.25mL dose 1 completed Dena Mclaughlin [facility] 12/18/2023 10:46:50 COVID-19, mRNA, LNP-S, PF, 100 mcg/0.5mL dose or 50 mcg/0.25mL dose 2 completed Dena Mclaughlin [facility] 12/18/2023 10:46:50 COVID-19, mRNA, LNP-S, PF, 100 mcg/0.5mL dose or 50 mcg/0.25mL dose 1 completed Denapascale Mclaughlin [facility] 12/18/2023 10:46:50 COVID-19, mRNA, LNP-S, PF, 100 mcg/0.5mL dose or 50 mcg/0.25mL dose 1 completed Dena Mclaughlin [facility] 12/18/2023 10:46:50 COVID-19, mRNA, LNP-S, PF, 100 mcg/0.5mL dose or 50 mcg/0.25mL dose 2 completed Denapascale Mclaughlin [facility] 12/18/2023 10:46:50 COVID-19, mRNA, LNP-S, PF, 50 mcg/0.5 mL 3 completed Dena Mclaughlin [facility] 12/18/2023 10:46:50 pneumococcal, unspecified formulation 1 completed Denapascale Mclaughlin [facility] 12/18/2023 10:46:50 zoster live 4 completed Denapascale Mclaughlin [facility] 12/18/2023 10:46:50 Influenza, split virus, trivalent, PF 5 completed Dena Mclaughlin [facility] 12/18/2023 10:46:50 Influenza, split virus, trivalent, PF 6 completed Dena oconnell, [facility] 12/18/2023 10:46:50 Pneumococcal conjugate PCV20, polysaccharide [id number] conjugate, adjuvant, PF 3 completed WALLACE oconnell, [facility] 12/19/2023 16:17:17 Influenza, high-dose, trivalent, PF 4 completed Not Available [facility] 10/12/2024 14:55:17 COVID-19, mRNA, LNP-S, PF, 50 mcg/0.5 mL 4 completed Not Available [facility] 10/12/2024 14:55:17 RSV, recombinant, protein subunit RSVpreF, adjuvant reconstituted, 0.5 mL, PF 5 completed Not Available [facility] 10/12/2024 14:55:16 Past Encounters Encounter ID Performer Location Encounter Start Date Encounter Closed Date Diagnosis/Indication Diagnosis SNOMED-CT Code Diagnosis ICD10 Code Diagnosis Note [id number] Medardo Bowers MD [facility] [address] [place] [id number] 07/01/2022 16:27:13 07/09/2022 09:49:49 History of cerebrovascular accident 154499808 I63.9 left residual lower extremity weakness. Angina pectoris 81950097 0 I20.9 stable but needs occassiona l NTG [id number] Medardo Bowers MD [facility] ([facility]) [address] [place] [id number] 12/25/2022 15:47:55 12/25/2022 17:40:47 History of cerebrovascular accident 925944417 I63.9 Angina pectoris 11888615 0 I20.9 Alcoholism 2540801 F10.2 0 Unexplaine d weight loss 770082428 R63.4 General unsteadiness 271 169990 R26.81 Recurrent falls 68794288 2 R29.6 I believe that he would benefit from a short stay in a [place] for some rehabilita tion and food supplement ions His partner is willing to try to get him into a facility and the patient is willing to go. [id number] Medardo Bowers MD [facility] ([facility]) [address] [place] [id number] 02/03/2023 09:00:57 02/03/2023 11:32:39 Recurrent falls 266722743 R29.6 improved energy. General unsteadiness 271 125334 R26.81 Alcoholism 2926807 F10.2 0 History of cerebrovascular accident 687956704 I63.9 Multiple n odules of lung 226106452 R91.8 By report from patient. Will ask for a copy of results. [id number] Medardo Bowers MD [facility] ([facility]) [address] [place] [address] [phone] 5 12/19/2023 15:51:45 12/19/2023 17:13:02 Recurrent falls [id number] R29.6 Worsening again with weakness. Standard c hest X-ray abnormal [id number] R93.89 Muscle weakness 13697153 M62.81 Possibly needing short term [place] stay in [facility]. Unintentio nal weight loss [id number] R63.4 Moderate protein-calorie malnutrition (weight for age 60-74 percent of standard) [id number] E44.0 [id number] Medardo Bowers MD [facility] ([facility]) [address] [place] [address] [phone] 5 01/23/2024 15:19:55 01/23/2024 16:38:03 Moderate protein-calorie malnutrition (weight for age 60-74 percent of standard) 366669505 E44.0 BMI 16.4. History of cerebrovascular accident [id number] Z86.73 Alcoholism 4080851 F10.2 0 [id number] Medardo Bowers MD [facility] ([facility]) [address] [place] [address] [phone] 5 03/17/2024 15:54:19 03/17/2024 17:37:17 Recurrent falls [id number] R29.6 worsening weakness. He would benefit from a rehabilita tion spell in the [place] after a stay in the hospital if he is able to find a place for admission for his 96 hr. hold. Alcoholism 6612172 F10.2 0 chronic General unsteadiness 271 250783 R26.81 [id number] Medardo Bowers MD [facility] ([facility]) [address] [place] [address] [phone] 5 04/16/2024 16:07:01 04/19/2024 13:53:56 Recurrent falls 206280310 R29.6 Paresis of left lower limb [id number] 6965232 G83.14 left leg and arm is a little weaker with increased falls. Poor short -term memory 563941863 R41.3 Alcoholism 5544689 F10.2 0 chronic [id number] Medardo Bowers MD [facility] ([facility]) [address] [place] [address] [phone] 5 05/24/2024 13:55:21 05/25/2024 14:51:39 History of cerebrovascular accident 519562204 Z86.73 Alcoholism 6866943 F10.2 0 chronic Now on Naltrexone from [facility]. Muscle weakness 29584994 M62.81 PT eval and treat. [id number] Medardo Bowers MD [facility] ([facility]) [address] [place] [address] [phone] 5 07/12/2024 16:03:36 07/12/2024 18:31:18 Pain of multiple joints 78747129 M25.50 Dehydration 44334363 E86 .0 Alcoholism 5481696 F10.2 0 chronic alchohol use disorder. [id number] Medardo Bowers MD [facility] ([facility]) [address] [place] [address] [phone] 5 10/12/2024 14:54:34 10/12/2024 16:24:43 Muscle weakness 36618181 M62.81 PT eval and treat was completed and he is doing better. General unsteadiness 271 605347 R26.81 continue Pain of mu ltiple joints 54434274 M25.50 Unexplaine d weight loss 074229027 R63.4 Alcoholism 9356743 F10.2 0 chronic alcohol use disorder. Doing well with this at this time with just rare alcohol Health Concerns Section Related Observation LastModified by Organization Detai ls LastModified Time None Recorded Concern Status LastModified by Organization Details LastModified Time None Recorded Advance Directives Directive None Recorded Payers Insurance Date Sequence Insurance Name Policy Number Policy Reed Covered Member ID Reed Member ID Guarantor Name 10/12/2024 [place] [id number] (MEDICARE[place] Gerardo Millan [id number] Gerardo Millan 10/12/2024 2 [place] Gerardo Millan 10/12/2024 [place] [facility] [place] Gerardo Millan [id number] Gerardo Millan 10/12/2024 1 [place] Gerardo Millan [id number] Gerardo Millan 10/12/2024 2 [place] Gerardo Millan [id number] Gerardo Millan Notes Date Note Type Note Provider Name and Address Organization Details Recorded Time 03/17/2024 text/html Has been in and out of the ER due to being weak and due to falling.Caregiver put patient on a 96 hour hold.Would like to discuss his care. Caregiver thinks that no one is helping with patient.Patient says that he is eating more. Needing some assistance with patient.Caregiver says that patient has been having incontinence of bowel and bladder.Caregiver thinks that he needs to be admitted to the hospital, every time they go they send patient home and does not help them with anything. Medardo Bowers MD [address] [place] [address], [phone], [facility] 03/17/2024 17:00:01 04/16/2024 text/html Has been having some left side weakness. Caregiver says that he is dragging his left leg.Went to ER on 04/12/24 for fall. Caregiver says that he has a drinking problem but is getting help through behavioral health at this time. They are awaiting to get him into a rehab. He is having increased weakness. Medardo Bowers MD [address] [place] [address], [phone], [facility] 04/16/2024 17:47:10 05/24/2024 text/html Would like to discuss having PT as outpatient. Has been in the hospital off and on. Went back to ER on 1/22/25 for N/V and diarrhea. Medardo Bowers MD [address] [place], [phone], [facility] [place] 05/24/2024 14:52:26
--- OUTSIDE RECORDS SUMMARY | 2024-10-22 20:32 | XMS_ITS | Encounter Summary ---
Author Organization [facility] Address 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 Gender Identity Not on file Sexual Orientation Not on file documented as of this encounter Plan of Treatment Upcoming Encounters Date Type Department Care Team (Late st Contact Info) Description 01/05/2025 3:00 PM CDT Office Visit [facility] Rheumatology- Сергей Velasco [address] [place] [phone] She Rubin MD [address] [place] [phone] documented as of this encounter Visit Diagnoses Not on filedocumented in this encounter Care Teams Manager Membership Relationship Specialty Start Date End Date Other, Sgf NO ADDRESS ON FILE PCP - General 01/07/18 documented as of this encounter
--- OUTSIDE RECORDS SUMMARY | 2024-10-22 20:32 | XMS_ITS | Clinical Summary ---
Author Organization [employer] Address [address] Ureña: Epic Prelude ADT MICHAEL ROWE [address] Care Team Providers Care [employer] Founder Name Role Phone Other, Sgf Primary Care Provider Unavailabl e Allergies Active Allergy Reactions Criticality Noted Date Comments Gaffney Seizure High 05/30/2008 [place] Hives High 11/30/2014 Pear Hives High 11/30/2014 Penicillins Hives High 05/30/2008 Medications fluticasone propionate (FLONASE) 50 mcg/spray Ulysses, Suspension nasal inhaler TWO SPRAYS IN EACH NOSTRIL DAILY 3 12/11/2017 Active nitroglycerin (NITROSTAT) 0.4 mg Tablet, Sublingual Place 0.4 mg under tongue every 5 minutes as needed for Chest Pain. Active lisinopril-hydr oCHLOROthiazide (ZESTORETIC) 20-12.5 mg tabletIndicatio ns:Other closed displaced fracture of proximal end of right humerus, initial encounter 11/22/2014 Active Active Problems Problem Noted Date Diagnosed Date Fracture of humerus, proximal, right, closed, DO I 11/23/2014 12/28/2014 HTN (hypertension) 03/28/2010 Erectile dysfunction 11/09/2009 Prostate cancer screening 01/26/2009 Overview (07/27/2020): PSA: 01/06 T.I.A., Hx of (2003, 2004) 01/23/2009 Tobacco abuse 01/23/2009 Overview (07/27/2020): 3-4 cigs/day (05/11) Gallstones, Assymptomatic 01/23/2009 Hx of [place] Fever 01/23/2009 Encounters Date Type Department Care Team Description 10/13/2024 External Device Data [facility] ABSTRACTION Provider, Abstract 10/13/2024 External Device Data [facility] ABSTRACTION Provider, Abstract 10/05/2024 External Device Data [facility] ABSTRACTION Provider, Abstract 08/24/2024 External Device Data [facility] ABSTRACTION Provider, Abstract 08/19/2024 External Device Data [facility] ABSTRACTION Provider, Abstract 08/18/2024 External Device Data [facility] ABSTRACTION Provider, Abstract 08/11/2024 Orders Only [facility] Health Information Management [place] [address] [place] [id number] Provider, Abstract from Last 3 Months Immunizations Immunization Administration Dates Next Due Influenza Seasonal Unspecified Formulation IM Influenza Vaccine Split 3+ Yrs IM 02/27/2009 Influenza Vaccine Split 3+ Yrs PF IM 12/06/2010 Pneumococcal conjugate, unspecified formulation 01/29/2010 Family History Medical History Relation Name Comments Cancer Neg Hx Colon Cancer Neg Hx Relation Name Status Comments Father Mother Social History Tobacco Use Types Packs/Day Years Used Date Smoking Tobacco: Every Day Cigarettes Alcohol Use Standard Drinks/Week Comments Yes 0 (1 standard drink = 0.6 oz pur e alcohol) Sex and Gender Information Value Date Recorded Sex Assigned at Not on file 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 Gender Identity Not on file Sexual Orientation Not on file Last Filed Vital Signs Vital Sign Reading Time Taken Comments Blood Pressure 103/75 12/14/2020 7:30 PM CDT Pulse 57 01/07/2018 8:47 AM CDT Temperature 35.9 C (96.6 F) 12/14/2020 7:30 PM CDT Respiratory Rate 18 12/14/2020 7:30 PM CDT Oxygen Saturation 94% 12/14/2020 7:30 PM CDT Inhaled Oxygen Concentration - - Weight 67.5 kg (148 lb 12.8 oz) 12/14/2020 7:30 PM CDT Height 182.9 cm (6') 12/14/2020 7:30 PM CDT Body Mass Index 20.18 12/14/2020 7:30 PM CDT Plan of Treatment Upcoming Encounters Date Type Department Care Team (Late st Contact Info) Description 01/05/2025 3:00 PM CDT Office Visit [facility] Rheumatology- Сергей Smith Meigs [address] [place] [address] She Rubin MD [address] [place] [phone] Health Maintenance Due Date Last Done Comments DTAP/TDAP/TD VACCINES (1 - Tdap) 07/05/1970 PNEUMOCOCCAL VACCINE 50+ YEA RS (1 of 2 - PCV) 07/05/1970 01/29/2010 COLORECTAL SCREENING 07/05/1996 Colorectal Cancer Screening 07/05/1996 FIT-DNA Q 3 years 07/05/1996 FIT/FOBT Q 1 year 07/05/1996 Flex Sig/CT Colonography Q 5 years 07/05/1996 ZOSTER VACCINE (1 of 2) 07/05/2001 INFLUENZA VACCINE (#1) 2024 1, 12/20/2009, 02/27/2009 RSV VACCINE (60+ or ) (1 - 1-dose 75+ series) 07/05/2026 Medical Devices Implanted Type Area Plywood Layup Line Core Layer Device Identifier Shelf Expiration Date Model / Serial / Lot Log 8986 - Synthes Small Frag Lcp Locking - 1 - Plate Lcp 1/ Tubular 7hole 241.371 Implanted:Qty: 1 on 05/31/2008 Plate Left: Ankle SYNTHES STRATEC 241.371 / / [id number] Log 8986 - Synthes Small Frag Lcp Locking - 1 - Screw Canc Pt 4x50mm 207.050 Implanted:Qty: 1 on 05/31/2008 Screw Left: Ankle SYNTHES STRATEC 207.050 / / [id number] Log 8986 - Synthes Small Frag Lcp Locking - 1 - Screw Anil Self Tap 3.5x14mm 204.814 Implanted:Qty: 4 on 05/31/2008 Screw Left: Ankle SYNTHES STRATEC 204.814 / / [id number] Log 8986 - Synthes Small Frag Lcp Locking - 1 - Screw Anil Self Tap 3.5x18mm 204.818 Implanted:Qty: 1 on 05/31/2008 Screw Left: Ankle SYNTHES STRATEC 204.818 / / Log 8986 - Synthes Small Frag Lcp Locking - 1 - Screw Anil Self Tap 3.5x20mm 204.820 Implanted:Qty: 2 on 05/31/2008 Screw Left: Ankle SYNTHES STRATEC 204.820 / / [id number] Log 8986 - Microaire K-Wire Tray - 1 - Wire K [id number] 292.20 Implanted:Qty: 2 on 05/31/2008 Wire SYNTHES STRATE Insurance MEDICARE PART A AND B [place]ID [place] Care Teams Ceo [employer] Founder Relationship Specialty Start Date End Date Other, Sgf NO ADDRESS ON FILE PCP - General 01/07/18
--- OUTSIDE RECORDS SUMMARY | 2024-10-22 20:32 | XMS_ITS | Encounter Summary ---
Author Organization [facility] Address 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 Gender Identity Not on file Sexual Orientation Not on file documented as of this encounter Plan of Treatment Upcoming Encounters Date Type Department Care Team (Late st Contact Info) Description 01/05/2025 3:00 PM CDT Office Visit [facility] Rheumatology- Сергей Velasco [address] [place] [phone] She Rubin MD [address] [place] [address] documented as of this encounter Visit Diagnoses Not on filedocumented in this encounter Care Teams Bar Useful Or Busser Relationship Specialty Start Date End Date Other, Sgf NO ADDRESS ON FILE PCP - General 01/07/18 documented as of this encounter
[2024-10-22 20:38] VITALS: BP 110/55; PULSE 50; RESP 20; TEMP 36.4; O2SAT 94; BMI 14.3
--- NOTE | 2024-10-22 20:42 | W.ED.FALL ---
HPI - Fall General: Chief Complaint: Fall Stated Complaint: etoh Time Seen by Provider: 10/22/24 20:32 History of Present Illness: 74-year-old male gentleman well-known to the emergency department. He has a history of alcohol abuse. He states that he has been drinking the last couple of days, and has not had anything to eat in the past 3 days. He is feeling generally weak. He fell at home. He denies any injury when he fell he states he is hungry Related Data Home Medications ?Medication ?Instructions ?Recorded ?Confirmed atorvastatin 20 mg tablet 20 mg PO QAM 09/14/22 07/20/24 loperamide 2 mg capsule 2 mg PO Q4H PRN Diarrhea 03/11/24 07/20/24 Previous Rx's ?Medication ?Instructions ?Recorded foot soak basin #1 ea 12/09/22 park brace. #1 ea 02/18/23 zinc oxide-cod liver oil 40 % 1 applic topical BID #57 grams 04/25/24 topical paste (Desitin) naltrexone 50 mg tablet 50 mg PO DAILY #30 tabs 07/20/24 Allergies Allergy/AdvReac Type Severity Reaction Status Date / Time corn Allergy ADR-Nausea Verified 07/20/24 15:47 [place] Allergy Uknown Verified 07/20/24 15:47 pear Allergy ALGY-Rash Verified 07/20/24 15:47 Penicillins Allergy ALGY-Difficulty Verified 07/20/24 15:47 Breathing [facility] ED PFSH: Medical History (Updated 10/22/24 @ 23:00 by Joey Leon DO) Depression Psychiatric care Alcoholic intoxication Peripheral vascular disease Alcohol withdrawal Alcoholic ketoacidosis Hypomagnesemia Alcohol abuse Generalized weakness Anxiety Myocardial infarction Alcoholism Pancreatitis Status post chemoradiation Cholelithiasis Dizziness Anal cancer COPD (chronic obstructive pulmonary disease) Hypertension CVA (cerebral vascular accident) DVT (deep venous thrombosis) Acute dehydration Vomiting Surgical History Status post laparoscopic cholecystectomy (11/13/20) Hx of non-cataract eye surgery Hx of cataract extraction History of ankle surgery History of tonsillectomy Status post colonoscopy Family History Mother Alzheimer's dementia Stomach cancer Father Throat cancer Other Family history non-contributory Social History (Updated 07/21/24 @ 07:07 by Dariela Mitchell LPN) Smoking and tobacco/nicotine status: current every day tobacco/nicotine user cigarettes Packs smoked per day: 0.5 Alcohol intake: current Alcohol intake frequency: 3 or more drinks per day Substance/Drug Use: never Adopted: No Lives independently: No Household members: family and other Details: has a live in vp care management Housing: Manufactured/Mobile home Marital status: Number of children: 0 Highest education level completed: Bachelor's Degree service: No Current occupational status: disabled Current occupational exposures/hazards: No Pets and animals: Yes Pets & animals: cat(s) and dog(s) Leisure activites: reading and other Leisure activities details: watch TV Sexually active: No Do you think of yourself as: Lesbian/Vargas/Homosexual Current gender identity: Male Christelle/Mormon: Amish Special christelle needs: No Agree to transfusion: Yes Physical Exam Const: COMMON NORMALS: no acute distress GENERAL APPEARANCE: cooperative, disheveled, lethargic (mildly) and frail appearing; not ill appearing ORIENTATION/CONSCIOUSNESS: Yes lethargic (mildly) HENMT: COMMON NORMALS: normocephalic, atraumatic and Normal external nose present HEAD & SCALP: normocephalic and atraumatic FACE & SINUS: normal facial exam and face symmetric NOSE: Normal external nose present Eye: OTHER: Left scleral scarring, chronic Neck/C-Spine: GENERAL: Yes trachea midline Chest: CHEST: Yes Symmetrical chest wall rise Resp: COMMON NORMALS: normal respiratory effort, No retractions, No use of accessory muscles and clear to auscultation bilaterally AUSCULTATION: clear to auscultation bilaterally Cardio: COMMON NORMALS: regular rate and regular rhythm RATE: regular rate RHYTHM: regular rhythm GI: COMMON NORMALS: Normal to inspection, nondistended, normoactive bowel sounds present Extremity: COMMON NORMALS: no pedal edema Neuro: HOMER COMA SCALE: document GCS findings [place]inton coma scale eye opening: Spontaneous Homer coma scale verbal response: Orientated Homer coma scale motor response: Obey commands [place]inton coma scale total score: 15 SENSORIUM/ORIENTATION: Yes lethargic (mildly) SENSORY EXAM: Yes extremities (intact) Psych: COMMON NORMALS: speech normal SPEECH: Yes normal speech Skin: COMMON NORMALS: no rashes or lesions noted GENERAL SKIN EXAM: no rashes or lesions noted Course Vital Signs: Vital signs: Vital Signs Temperature 97.5 F L 10/22/24 20:38 Pulse Rate 50 L 10/22/24 23:48 Respiratory Rate 20 H 10/22/24 20:38 Blood Pressure 106/62 10/22/24 23:48 Pulse Oximetry 92 10/22/24 23:48 Oxygen Delivery Me thod Room Air 10/22/24 22:25 MDM - Fall Medical Decision Making No evidence of injury on exam. He is intoxicated. He received a bolus, thiamine, Zofran. We let him eat. No change in patient clinical status. He is awake and answering questions. Will try to get him a sober ride home. He will be discharged. Lab Data 10/22/24 21:43 10/22/24 21:43 Laboratory Results WBC 6.87 10^3/uL (3.29-11.43) 10/22/24 21:43 RBC 3.75 10^6/uL (3.85-5.65) L 10/22/24 21:43 Hgb 11.40 g/dL (11.27-16.99) 10/22/24 21:43 Hct 33.9 % (37-53) L 10/22/24 21:43 MCV 90.4 fl (82-101) 10/22/24 21:43 MCH 30.4 pg (27-33) 10/22/24 21:43 MCHC 33.6 g/dL (30-55) 10/22/24 21:43 RDW 16.0 % (12.1-15.1) H 10/22/24 21:43 Plt Count 173 10^3/cmm (157-399) 10/22/24 21:43 MPV 9.5 fL (7.4-10.4) 10/22/24 21:43 Neut % (Auto) 53.3 % 10/22/24 21:43 Lymph % (Auto) 34.4 % 10/22/24 21:43 [place] % (Auto) 8.3 % 10/22/24 21:43 Eos % (Auto) 2.6 % 10/22/24 21:43 Baso % (Auto) 1.0 % 10/22/24 21:43 Neut # (Auto) 3.66 10^3/uL (1.8-7.7) 10/22/24 21:43 Lymph # (Auto) 2.4 10^3/uL (0.8-4.8) 10/22/24 21:43 [place] # (Auto) 0.6 10^3/uL (0.2-0.9) 10/22/24 21:43 Eos # (Auto) 0.2 10^3/uL (0.0-0.8) 10/22/24 21:43 Baso # (Auto) 0.1 10^3/uL (0.0-0.1) 10/22/24 21:43 Nucleated RBC % (auto) 0 % 10/22/24 21:43 Nucleated RBCs # 0.0 /100WBC 10/22/24 21:43 Sodium 142 mmol/L (136-145) 10/22/24 21:43 Potassium 3.6 mmol/L (3.5-5.1) 10/22/24 21:43 Chloride 104 mmol/L (98-107) 10/22/24 21:43 Carbon Dioxide 20 mmol/L (22-29) L 10/22/24 21:43 Anion Gap 21.6 (5-19) H 10/22/24 21:43 BUN 14 mg/dL (8-23) 10/22/24 21:43 Creatinine 0.6 mg/dL (0.7-1.2) L 10/22/24 21:43 GFR Calculation Not Reportable 10/22/24 21:43 Glucose 72 mg/dL (65-115) 10/22/24 21:43 Calculated Osmolality 293 mOsm/kg (285-295) 10/22/24 21:43 Calcium 8.7 mg/dL (8.5-10.5) 10/22/24 21:43 Total Bilirubin 0.4 mg/dL (0.15-1.2) 10/22/24 21:43 AST 26 U/L (0-40) 10/22/24 21:43 ALT 14 U/L (0-41) 10/22/24 21:43 Alkaline Phosphatase 79 U/L (40-130) 10/22/24 21:43 Total Protein 6.5 g/dL (6.6-8.7) L 10/22/24 21:43 Albumin 3.5 g/dL (3.5-5.2) 10/22/24 21:43 Globulin 3.0 g/dL (1.3-4.6) 10/22/24 21:43 Salicylates < 0.3 mg/dL (3-10) L 10/22/24 21:43 Acetaminophen < 5.0 ug/mL (10-30) L 10/22/24 21:43 Ethyl Alcohol 297 mg/dL (0-10) H 10/22/24 21:43 All radiology interpretation(s) finalized by discharge Discharge Plan Discharge Patient Disposition: Home Clinical Impression: Alcohol intoxication Qualifiers: Complication of substance-induced condition: uncomplicated Qualified Code(s): F10.920 - Alcohol use, unspecified with intoxication, uncomplicated Condition: Stable Prescriptions: No Action (DME) foot soak basin See Rx Instructions .Route .MEDSUPPLY Qty: 1 0RF Rx Instructions: As directed to HOME (DME) xavier klein. See Rx Instructions .Route .MEDSUPPLY Qty: 1 0RF Rx Instructions: As directed naltrexone 50 mg tablet 50 mg PO DAILY Qty: 30 11RF loperamide 2 mg Capsule 2 mg PO Q4H PRN (Reason: Diarrhea) Rx Instructions: administer after each loose stool until symptoms controlled; do not exceed 8 mg per 24 hrs atorvastatin 20 mg tablet 20 mg PO QAM Desitin 40 % paste 1 applic topical BID Qty: 57 2RF Discharge Orders: Discharge ED (Routine); Ordered 10/22/24 Ordered By: Joey Leon Referrals: Medardo Bowers MD [Primary Care Provider, Family Practice] - 1-3 days Patient Instructions: Alcohol Intoxication (ED), Opioid Safety, Pain Management, Patient Portal & Chente Instructions Activity Restrictions/Additional Instructions: Avoid alcohol. Drink plenty of clear nonalcoholic liquids. Make sure you are getting plenty of calories. Return for fever, lethargy, any other concerning symptoms Print Language: Peruvian Coding Level of Care Code ED Test Deck Supervisor for Katrin Mike
[2024-10-22] MEDS: thiamine 100 mg/mL 2mL SDV IVP (21:10)
[2024-10-22] MEDS: ondansetron 2 mg/ML SDV 2 mL 4 MG IVP (21:10)
[2024-10-22 21:16] VITALS: BP 114/69; PULSE 50; O2SAT 94
[2024-10-22 21:47] LABS: Hematocrit 33.9 % (37-53); Hemoglobin 11.40 g/dL (11.27-16.99); Mean Corpuscular HGB Conc 33.6 g/dL (30-55); Mean Corpuscular Hemoglobin 30.4 pg (27-33); Mean Corpuscular Volume 90.4 fl (82-101); Nucleated Red Blood Cells % 0 %; Platelet Count 173 10^3/cmm (157-399); Red Blood Count 3.75 10^6/uL (3.85-5.65); White Blood Count 6.87 10^3/uL (3.29-11.43)
[2024-10-22 22:13] LABS: Alanine Aminotransferase 14 U/L (0-41); Albumin Level 3.5 g/dL (3.5-5.2); Alcohol Level 297 mg/dL (0-10); Alkaline Phosphatase 79 U/L (40-130); Anion Gap 21.6 (5-19); Aspartate Amino Transferase 26 U/L (0-40); Blood Urea Nitrogen 14 mg/dL (8-23); Calcium 8.7 mg/dL (8.5-10.5); Carbon Dioxide 20 mmol/L (22-29); Chloride 104 mmol/L (98-107); Creatinine Clr Calc Pharmacy 52.7613; Globulin 3.0 g/dL (1.3-4.6); Glucose 72 mg/dL (65-115); Osmolality Calculated 293 mOsm/kg (285-295); Potassium 3.6 mmol/L (3.5-5.1); Sodium 142 mmol/L (136-145); Total Protein 6.5 g/dL (6.6-8.7)
[2024-10-22 22:15] LABS: Acetaminophen < 5.0 ug/mL (10-30); Salicylate < 0.3 mg/dL (3-10)
[2024-10-22 22:25] VITALS: BP 113/85; PULSE 50; O2SAT 96
[2024-10-22 23:48] VITALS: BP 106/62; PULSE 50; O2SAT 92
== END 2024-10-22 23:51 | disposition home or self-care (01) ==
PROVIDERS: Emergency Provider Emergency Medicine; PCP Family Medicine
DX: F10.920 Alcohol use, unspecified with intoxication, uncomplicated (principal); F17.210 Nicotine dependence, cigarettes, uncomplicated; J44.9 Chronic obstructive pulmonary disease, unspecified; Z85.048 Personal history of other malignant neoplasm of rectum, rectosigmoid junction, and anus; Z86.73 Personal history of transient ischemic attack (TIA), and cerebral infarction without residual deficits; Y90.8 Blood alcohol level of 240 mg/100 ml or more
CPT/HCPCS: 36415; 80053; 80307; 85025; 96361; 96374; 96375; 99284; J2405; J3411; J7030

== ENCOUNTER → 2024-12-02 15:34 | Outpatient (BNVA) | payer MEDICARE, MEDICAID, SELFPAY ==
[2024-07-27 10:46] VITALS: BP 89/69; BMI 16.4
== END ==
PROVIDERS: PCP Family Medicine; Visit Provider Orthopaedic Surgery
DX: S42.332D Displaced oblique fracture of shaft of humerus, left arm, subsequent encounter for fracture with routine healing (principal); X58.XXXD Exposure to other specified factors, subsequent encounter
CPT/HCPCS: 73060; 99213

== ENCOUNTER 2025-01-05 21:57 | Emergency (ER) | payer MEDICARE, MEDICAID, SELFPAY ==
[2024-07-27 10:46] VITALS: BP 89/69; BMI 16.4
[2025-01-05 21:57] VITALS: BP 109/65; PULSE 70; RESP 16; TEMP 36.6; O2SAT 98; BMI 17.2
[2025-01-05 22:28] VITALS: BP 118/68; PULSE 70; O2SAT 99
--- NOTE | 2025-01-05 22:34 | ED_ITS ---
HPI - Fall General: Chief Complaint: Fall Stated Complaint: fall-no complaints/ etoh Time Seen by Provider: 01/05/25 22:01 History of Present Illness: This is a 74-year-old male with a history of alcohol abuse, depression, CVA, hyperlipidemia, CAD, presenting to the emergency department with alcohol intoxication and fall, patient reports that he tripped over some stuff that was about his house given that he is currently in the process of breaking up with his long-term partner and moving out. Reports that he feels a lot of stress related to this, he did not feel dizzy prior to the fall, he did not hit his head, he denies any head or neck pain or trauma, denies anticoagulant use, reports he has chronic pains to his legs and arms but denies any acute pain since the fall. Related Data Home Medications ?Medication ?Instructions ?Recorded ?Confirmed atorvastatin 20 mg tablet 20 mg PO QAM 09/14/22 loperamide 2 mg capsule 2 mg PO Q4H PRN Diarrhea 03/2312/02/24 Previous Rx's ?Medication ?Instructions ?Recorded foot soak basin #1 ea 12/09/22 park brace. #1 ea 02/18/23 zinc oxide-cod liver oil 40 % 1 applic topical BID #57 grams 04/25/24 topical paste (Desitin) naltrexone 50 mg tablet 50 mg PO DAILY #30 tabs 06/30 05/25 Allergies Allergy/AdvReac Type Severity Reaction Status Date / Time corn Allergy ADR-Nausea Verified 12/02/24 13:06 [place] Allergy Uknown Verified 12/02/24 13:06 pear Allergy ALGY-Rash Verified 12/02/24 13:06 Penicillins Allergy ALGY-Difficulty Verified 12/02/24 13:06 Breathing PFSH ED PFSH: Medical History Depression Psychiatric care Alcoholic intoxication Peripheral vascular disease Alcohol withdrawal Alcoholic ketoacidosis Hypomagnesemia Alcohol abuse Generalized weakness Anxiety Myocardial infarction Alcoholism Pancreatitis Status post chemoradiation Cholelithiasis Dizziness Anal cancer COPD (chronic obstructive pulmonary disease) Hypertension CVA (cerebral vascular accident) DVT (deep venous thrombosis) Acute dehydration Vomiting Surgical History Status post laparoscopic cholecystectomy (11/13/20) Hx of non-cataract eye surgery Hx of cataract extraction History of ankle surgery History of tonsillectomy Status post colonoscopy Family History Mother Alzheimer's dementia Stomach cancer Father Throat cancer Other Family history non-contributory Social History Smoking and tobacco/nicotine status: unknown if used tobacco/nicotine Alcohol intake: current Alcohol intake frequency: 3 or more drinks per day Substance/Drug Use: never Adopted: No Lives independently: No Household members: family and other Details: has a live in director of primary care Housing: Manufactured/Mobile home Marital status: Number of children: 0 Highest education level completed: Bachelor's Degree service: No Current occupational status: disabled Current occupational exposures/hazards: No Pets and animals: Yes Pets & animals: cat(s) and dog(s) Leisure activites: reading and other Leisure activities details: watch TV Sexually active: No Do you think of yourself as: Lesbian/Vargas/Homosexual Current gender identity: Male Christelle/Adventist: Religion Special christelle needs: No Agree to transfusion: Yes Physical Exam Narrative: EXAM NARRATIVE: Gen: A&Ox4, no acute distress, nontoxic appearing, mildly intoxicated HEENT: Normocephalic, atraumatic, no scleral icterus, external ears normal, moist mucous membranes, no scalp hematoma or laceration, no bruising to the face head or neck region, no palpable depressible fracture, no periorbital ecchymosis, no hemotympanum, no Joyce sign Neck: Supple, full range of motion, no observable masses Lungs: No Respiratory distress, Lungs clear to auscultation bilaterally no rales, rhonchi, wheezing CV: Regular rate and rhythm, no murmur, no pitting edema to lower extremities bilaterally Abdomen: Soft, nondistended, nontender to palpation MSK: No joint swelling, FROM all 4 extremities, chronic finger deformity to the left hand fifth digit nontender/nonswollen Skin: No rashes, petechiae, lesions. Normal color per patient. Neuro: Alert and oriented, no slurred speech, sensation and strength grossly intact all 4 extremities Psych: Appropriate for situation. Course Reevaluation(s): Reevaluation #1: Patient reassessed at this time, he is awake and arousable, no longer clinically intoxicated, ambulating with his cane with a steady gait, stable for discharge Time: 05:23 Vital Signs: Vital signs: Vital Signs Temperature 97.8 F 01/05/25 21:57 Pulse Rate 59 L 01/06/25 04:21 Respiratory Rate 16 01/05/25 21:57 Blood Pressure 124/73 01/06/25 04:21 Pulse Oximetry 96 01/06/25 04:21 Oxygen Delivery Me thod Room Air 01/06/25 04:21 MDM - Fall Medical Decision Making 74-year-old male medical history most significant for heart disease alcohol abuse and CVAs in the past presenting with a mechanical fall due to tripping in the context of alcohol consumption, patient appears mildly intoxicated, no external signs of head trauma or reported headache, he is awake and alert and able to provide a reliable history, physical exam of the body with no evidence of significant acute trauma, moving all extremities spontaneously, no head or neck abnormalities on exam, will monitor for sobriety, reassess for disposition. At this time very low concern for intracranial hemorrhage or occult head trauma no indication for imaging in my opinion. No radiology studies performed this visit Discharge Plan Discharge Patient Disposition: Home Clinical Impression: Alcohol intoxication Condition: Stable Prescriptions: No Action (DME) foot soak basin See Rx Instructions .Route .MEDSUPPLY Qty: 1 0RF Rx Instructions: As directed to HOME (DME) xavier klein. See Rx Instructions .Route .MEDSUPPLY Qty: 1 0RF Rx Instructions: As directed naltrexone 50 mg tablet 50 mg PO DAILY Qty: 30 11RF loperamide 2 mg Capsule 2 mg PO Q4H PRN (Reason: Diarrhea) Rx Instructions: administer after each loose stool until symptoms controlled; do not exceed 8 mg per 24 hrs atorvastatin 20 mg tablet 20 mg PO QAM Desitin 40 % paste 1 applic topical BID Qty: 57 2RF Discharge Orders: Discharge ED (Routine); Ordered 01/06/25 Ordered By: Guillermo Bowers Referrals: Medardo Bowers MD [Primary Care Provider, Family Practice] Patient Instructions: Patient Portal & Chente Instructions, Abuse of Alcohol (ED) Print Language: Andorran Coding Level of Care Code ED Enterprise Systems Architect for Katrin Mike
[2025-01-06 00:06] VITALS: BP 103/70; PULSE 63; O2SAT 97
[2025-01-06 02:19] VITALS: BP 108/71; PULSE 69; O2SAT 96
[2025-01-06 04:21] VITALS: BP 124/73; PULSE 59; O2SAT 96
[2025-01-06 05:30] VITALS: BP 128/74; PULSE 56; O2SAT 96
== END 2025-01-06 05:45 | disposition home or self-care (01) ==
PROVIDERS: Emergency Provider Student in an Organized Health Care Education/Training Program; PCP Family Medicine
DX: F10.129 Alcohol abuse with intoxication, unspecified (principal); J44.9 Chronic obstructive pulmonary disease, unspecified; Z86.73 Personal history of transient ischemic attack (TIA), and cerebral infarction without residual deficits; I10 Essential (primary) hypertension; Z85.048 Personal history of other malignant neoplasm of rectum, rectosigmoid junction, and anus
CPT/HCPCS: 99283

== ENCOUNTER 2025-03-14 00:51 | Inpatient (IN) | payer MEDICARE, MEDICAID, SELFPAY ==
[2024-07-27 10:46] VITALS: BP 89/69; BMI 16.4
[2025-03-14] VITALS (14 sets, daily range): BP systolic 93–125; BP diastolic 58–73; PULSE 74–106; RESP 16–24; TEMP 30.7–37.1; O2SAT 90–99; BMI 18.1; BMI 18.6
--- OUTSIDE RECORDS SUMMARY | 2025-03-14 00:57 | XMS_ITS | Encounter Summary ---
Author Organization [facility] Address [address] [place] [address] Care Team Providers Care Licensed Pesticide Applicator Name Role Phone Other, Sgf Primary Care Provider Unavailabl e Encounter Details Date Type Department Care Team (Late st Contact Info) Description 03/08/2025 External Device Data STL ABSTRACTION Provider, Abstract NO ADDRESS ON FILE Social History Tobacco Use Types Packs/Day Years Used Date Smoking Tobacco: Every Day Cigarettes Alcohol Use Standard Drinks/Week Comments Yes 0 (1 standard drink = 0.6 oz pur e alcohol) Food Insecurity Answer Date Recorded Do you find you are eating l ess than you should because you can t pay for food? No 03/05/2025 Transportation Needs Answer Date Record ed Have you gone without health care because you didn t have a way to get there? Or worry about transportation for future doctor visits, crop picker medication, etc.? No 2024 Housing Stability Answer Date Recorded Do you worry you won t have a steady place to sleep or struggle to pay rent or mortgage? No 03/05/2025 Utility Needs Answer Date Recorded Do you have difficulty payin g for utility costs (electric, water or gas bills)? No 03/05/2025 Medication Needs Answer Date Recorded Have you skipped taking medi cation due to cost or worry you can t afford new medications? No 03/05/2025 Feeling Safe Answer Date Recorded Are you in a relationship wi th someone who hurts you emotionally and/or physically? No 03/05/2025 Sex and Gender Information Value Date Recorded Sex Assigned at Not on file Legal Sex Male 6:35 AM BOOKIE Gender Identity Not on file Sexual Orientation Not on file documented as of this encounter Plan of Treatment Not on file documented as of this encounter Visit Diagnoses Not on filedocumented in this encounter Care Teams Licensed Pesticide Applicator Relationship Specialty Start Date End Date Other, Sgf NO ADDRESS ON FILE PCP - General 01/07/18 documented as of this encounter
--- OUTSIDE RECORDS SUMMARY | 2025-03-14 00:57 | XMS_ITS | Encounter Summary ---
Author Organization [facility] Address [address] [place] [address] Care Team Providers Care Payroll And Benefits Analyst Name Role Phone Other, Sgf Primary Care [...] worry about transportation for future doctor visits, order picker/assembler medication, etc.? 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
--- OUTSIDE RECORDS SUMMARY | 2025-03-14 00:57 | XMS_ITS | Clinical Summary ---
Author Organization [facility] Address [address] [place]ña: Epic Prelude ADT [place]OW[place] [address] Care Team Providers Care Rim Fire Charger Operator Name Role Phone Other, Sgf Primary Care Provider Unavailabl e Allergies Active Allergy Reactions Criticality Noted Date Comments [place] Seizure High 05/30/2008 [place] Hives High 11/30/2014 [place] Hives High 11/30/2014 Penicillins Hives High 05/30/2008 Medications fluticasone propionate (FLONASE) 50 mcg/spray [place], Suspension nasal inhaler TWO SPRAYS IN EACH NOSTRIL DAILY 3 12/11/2017 Active nitroglycerin (NITROSTAT) 0.4 mg Tablet, Sublingual Place 0.4 mg under tongue every 5 minutes as needed for Chest Pain. Active Active Problems Problem Noted Date Diagnosed Date Multiple closed fractures of ribs of right side 02/19/2025 Fracture of humerus, proximal, right, closed, DO I 11/23/2014 12/28/2014 HTN (hypertension) 03/28/2010 Erectile dysfunction 11/09/2009 Prostate cancer screening 01/26/2009 Overview (07/27/2020): PSA: 01/06 T.I.A., Hx of (2003, 2004) 01/23/2009 Tobacco abuse 01/23/2009 Overview (07/27/2020): 3-4 cigs/day (05/11) Gallstones, Assymptomatic 01/23/2009 Hx of [place] Fever 01/23/2009 Encounters Date Type Department Care Team Description 03/08/2025 External Device Data STL ABSTRACTION Provider, Abstract 03/08/2025 External Device Data STL ABSTRACTION Provider, Abstract 03/05/2025 7:27 PM GRADUATE TEACHING ASSISTANT - 03/05/2025 9:11 PM GRADUATE TEACHING ASSISTANT Emergency [facility] Emergency Medicine [address] [place] [id number] Sharon Page MD Viral gastroenteritis (Primary Dx) Discharge Disposition: Home or Self Care 03/05/2025 Travel 02/22/2025 External Device Data STL ABSTRACTION Provider, Abstract 02/22/2025 External Device Data STL ABSTRACTION Provider, Abstract 02/22/2025 External Device Data STL ABSTRACTION Provider, Abstract 02/19/2025 6:39 AM GRADUATE TEACHING ASSISTANT - 02/19/2025 8:02 AM GRADUATE TEACHING ASSISTANT Emergency [facility] Emergency Medicine [address] [place] [id number] Alia Abbott MD Closed fracture of multiple ribs of right side, initial encounter (Primary Dx) Discharge Disposition: Home or Self Care 02/19/2025 Travel 01/18/2025 External Device Data STL ABSTRACTION Provider, Abstract 01/04/2025 External Device Data STL ABSTRACTION Provider, Abstract from Last 3 Months Immunizations [...] worry about transportation for future doctor visits, milk pickup driver medication, etc.? No 2024 Housing Stability Answer [...] on file Legal Sex Male 6:35 AM GRADUATE TEACHING ASSISTANT Gender Identity Not on file Sexual Orientation Not on file Last Filed Vital Signs Vital Sign Reading Time Taken Comments Blood Pressure 109/77 03/05/2025 7:45 PM GRADUATE TEACHING ASSISTANT Pulse 59 02/19/2025 7:45 AM GRADUATE TEACHING ASSISTANT Temperature 36.4 C (97.6 F) 03/05/2025 7:45 PM GRADUATE TEACHING ASSISTANT Respiratory Rate 18 03/05/2025 7:45 PM GRADUATE TEACHING ASSISTANT Oxygen Saturation 97% 03/05/2025 7:45 PM GRADUATE TEACHING ASSISTANT Inhaled Oxygen Concentration - - Weight 55.8 kg (123 lb 1.6 oz) 03/05/2025 7:45 P M GRADUATE TEACHING ASSISTANT Height 182.9 cm (6') 03/05/2025 7:45 PM GRADUATE TEACHING ASSISTANT Body Mass Index 16.7 03/05/2025 7:45 PM GRADUATE TEACHING ASSISTANT Plan of Treatment Health Maintenance Due Date Last Done Comments DTAP/TDAP/TD VACCINES (1 - Tdap) 07/05/1970 COLORECTAL SCREENING 07/05/1996 Colorectal Cancer Screening 07/05/1996 FIT-DNA Q 3 years 07/05/1996 FIT/FOBT Q 1 year 07/05/1996 Flex Sig/CT Colonography Q 5 years 07/05/1996 Abdominal Aortic Aneurysm (A AA) Screening 07/05/2016 ZOSTER VACCINE (3 of 3) 08/21/2021 06/26/2021, 05/03 INFLUENZA VACCINE (#1) 2024 , 12/18/2022, 01/23/2022, Additional history exists COVID-19 Vaccine ( - 2024-2 6 season) 2025 11/23/2024, 12/19/2023, 12/18/2022, Additional history exists RSV VACCINE (60+ or ) (1 - 1-dose 75+ series) 07/05/2026 PNEUMOCOCCAL VACCINE 50+ YEARS Completed 1 , 04/27/2020, 01/29/2010 Medical Devices Implanted Type Area Oracle Engineer Device Identifier Shelf Expiration Date Model / Serial / Lot Log 8986 - Synthes Small Frag Lcp Locking - 1 - Plate Lcp 1/3 Tubular 7hole 241.371 Implanted:Qty: 1 on 05/31/2008 Plate Left: Ankle SYNTHES STRATEC 241.371 / / [id number] Log 8986 - Synthes Small Frag Lcp Locking - 1 - Screw Canc Pt 4x50mm 207.050 Implanted:Qty: 1 on 05/31/2008 Screw Left: Ankle SYNTHES STRATEC 207.050 / / [id number] Log 8986 - Synthes Small Frag Lcp Locking - 1 - Screw Anil Self Tap 3.5x14mm 204.814 Implanted:Qty: 4 on 05/31/2008 Screw Left: Ankle SYNTHES STRATEC 204.814 / / [id number] Log 8986 - Synthes Small Frag Lcp Locking - 1 - Screw Anil Self Tap 3.5x18mm 204.818 Implanted:Qty: 1 on 05/31/2008 Screw Left: Ankle SYNTHES STRATEC 204.818 / / Log 8986 - Synthes Small Frag Lcp Locking - 1 - Screw Anil Self Tap 3.5x20mm 204.820 Implanted:Qty: 2 on 05/31/2008 Screw Left: Ankle SYNTHES STRATEC 204.820 / / [id number] Log 8986 - Microaire K-Wire Tray - 1 - Wire K [id number] 292.20 Implanted:Qty: 2 on 05/31/2008 Wire SYNTHES STRATEC Procedures Procedure Name Priority Date/Time Associated Diagnosis Comments XR RIBS UNILATERAL RIGHT W PA CHEST Stat 02/19/2025 7:15 AM GRADUATE TEACHING ASSISTANT from Last 3 Months Results * XR RIBS UNILATERAL RIGHT W PA CHEST (02/19/2025 7:15 AM GRADUATE TEACHING ASSISTANT) Anatomical Region Laterality Modality Chest Computed Radiogr aphy 02/19/2025 7:15 AM GRADUATE TEACHING ASSISTANT Impressions 02/19/2025 7:28 AM GRADUATE TEACHING ASSISTANT IMPRESSION: Age indeterminate right third rib fracture. Age indeterminate right fifth rib fracture. Multiple old bilateral rib fractures. Minimal scarring in the medial right lower lung. Hyperinflation both lungs. Old right clavicle fracture. Old proximal right humeral metaphysis fracture. Remainder unremarkable. Narrative 02/19/2025 7:28 AM GRADUATE TEACHING ASSISTANT Exam: Radiographs: XR RIBS UNILATERAL RIGHT W PA CHEST Indication: Fall Comparison: Plain films dated 12/01/2015 Procedure Note You Valdes MD - 02/19/2025 Exam: Radiographs: XR RIBS UNILATERAL RIGHT W PA CHEST Indication: Fall Comparison: Plain films dated 12/01/2015 IMPRESSION: Age indeterminate right third rib fracture. Age indeterminate right fifth rib fracture. Multiple old bilateral rib fractures. Minimal scarring in the medial right lower lung. Hyperinflation both lungs. Old right clavicle fracture. Old proximal right humeral metaphysis fracture. Remainder unremarkable. Juan Francisco Zhang MD DIAGNOSTIC IMAGING ORDER HANNAH Final Result from Last 3 Months Insurance MEDICARE PART A AND B [place]ICAID [place] Care Teams Rim Fire Charger Operator Relationship Specialty Start Date End Date Other, Sgf NO ADDRESS ON FILE PCP - General 01/07/18
--- NOTE | 2025-03-14 01:08 | ECG_ITS ---
[facility] Date: 2025-03-14 Pat Name: Gerardo Millan Department: Room: Gender: Male Sail Cutter: : 1950 Requested By: Joey Patel Order Number: [id number] Ray MD: Ashwin Marie M.D. Measurements Intervals [place] Rate: 90 P: 0 MO: 0 QRS: 18 QRSD: 92 T: 40 QT: 437 QTc: 536 Interpretive Statements ATRIAL FIBRILLATION with frequent PVCs LOW QRS VOLTAGE IN PRECORDIAL LEADS [QRS DEFLECTION < 1.0 mV IN CHEST LEADS] PROLONGED QT INTERVAL Heavy baseline artifacts; Need to repeat the study. Compared to ECG 06/15/2024 17:08:31 Low QRS voltage now present Prolonged QT interval now present Sinus rhythm no longer present T-wave abnormality no longer present Electronically Signed On 03-15-2025 21:38:12 FIRST LINE PRODUCTION SUPERVISOR by Ashwin Marie M.D. [email or web address]
--- NOTE | 2025-03-14 01:26 | XRR_ITS ---
PROCEDURE INFORMATION: Exam: XR Pelvis Exam date and time: 03/14/2025 1:40 AM Age: 74 years old Clinical indication: Injury or trauma; Blunt trauma (contusions or hematomas); Bilateral; Hip and pelvic region; EMS arrival for suspected fall. Per EMS, patient found unresponsive on floor by brother surrounded by whiskey bottles. ; Additional info: Fall hip pain TECHNIQUE: Imaging protocol: Radiologic exam of the pelvis. Views: 1 or 2 view. COMPARISON: CT abdomen pelvis w con* [id number] 03/29/2022 4:47 PM FINDINGS: Bones/joints: No acute fracture or dislocation. Diffuse osseous demineralization. Soft tissues: Unremarkable. Gastrointestinal tract: Dilated small bowel measuring up to 3.6 cm, concerning for small bowel obstruction. XR/XR pelvis 1-2V* [id number] IMPRESSION: 1. Dilated small bowel measuring up to 3.6 cm, concerning for small bowel obstruction. 2. No acute fracture or dislocation.
--- NOTE | 2025-03-14 01:26 | XRR_ITS ---
PROCEDURE INFORMATION: Exam: XR Chest Exam date and time: 03/14/2025 1:40 AM Age: 74 years old Clinical indication: Injury or trauma; Shortness of breath; Blunt trauma (contusions or hematomas); Prior surgery; Surgery date: 6+ months; Surgery type: Humeral noah; EMS arrival for suspected fall. Per EMS, patient found unresponsive on floor by brother surrounded by whiskey bottles. ; Additional info: SOB TECHNIQUE: Imaging protocol: Radiologic exam of the chest. Views: 1 view. COMPARISON: CR XR chest 1V portable [id number] 06/18/2024 11:05 PM FINDINGS: Lungs: Emphysema. Pleural spaces: No focal consolidation, pleural effusion, or pneumothorax. Heart/Mediastinum: Cardiomegaly. Bones/joints: Old fracture of the right proximal humerus. Old fractures of the bilateral upper ribs. XR/XR chest 1V portable [id number] IMPRESSION: No focal consolidation, pleural effusion, or pneumothorax.
--- NOTE | 2025-03-14 01:26 | CTR_ITS ---
PROCEDURE INFORMATION: Exam: CT Head Without Contrast Exam date and time: 03/14/2025 1:53 AM Age: 74 years old Clinical indication: Injury or trauma; Blunt trauma (contusions or hematomas); EMS arrival for suspected fall. Per EMS, patient found unresponsive on floor by brother surrounded by whiskey bottles. TECHNIQUE: Imaging protocol: Computed tomography of the head without contrast. Radiation optimization: All CT scans at this facility use at least one of these dose optimization techniques: automated exposure control; mA and/or kV adjustment per patient size (includes targeted exams where dose is matched to clinical indication); or iterative reconstruction. COMPARISON: CT head wo con* [id number] 06/18/2024 11:11 PM RADIATION DOSE METRICS: Total DLP (mGy-cm): 727.38 FINDINGS: Brain: No acute intracranial hemorrhage. No midline shift or mass effect. No acute territorial infarct. Global age-related cerebral atrophy. Chronic, age related microangiopathy, consistent periventricular and subcortical white matter hypoattenuation. Cerebral ventricles: No ventriculomegaly. Paranasal sinuses: Visualized sinuses are unremarkable. No fluid levels. Mastoid air cells: Visualized mastoid air cells are well aerated. Orbital cavities: Phthisis bulbi of the left thigh. Left thigh scleral buckle. Bones: Unremarkable. No acute fracture. Soft tissues: Unremarkable. CT/CT head wo con* [id number] IMPRESSION: No acute intracranial hemorrhage. No midline shift or mass effect.
[2025-03-14 01:45] LABS: Hematocrit 36.5 % (37-53); Hemoglobin 11.40 g/dL (11.27-16.99); Mean Corpuscular HGB Conc 31.2 g/dL (30-55); Mean Corpuscular Hemoglobin 32.1 pg (27-33); Mean Corpuscular Volume 102.8 fl (82-101); Nucleated Red Blood Cells % 0 %; Platelet Count 137 10^3/cmm (157-399); Red Blood Count 3.55 10^6/uL (3.85-5.65); White Blood Count 8.78 10^3/uL (3.29-11.43)
--- NOTE | 2025-03-14 01:47 | ED_ITS ---
HPI - Altered Mental Status 2 General: Chief Complaint: Altered Mental Status Stated Complaint: FALL Time Seen by Provider: 03/14/25 00:54 History of Present Illness: 74-year-old alcoholic male well-known to the emergency department service. He presents after falling in the floor at night. He is found down by his roommate. Unknown duration of length of time down. He is cold on arrival. He is complaining of pain from my eyes to my knees he denies any significant trauma. He denies fever. He says he has been coughing. He has diarrhea. He denies drinking, but several vodka bottles were found around him. Related Data Home Medications ?Medication ?Instructions ?Recorded ?Confirmed atorvastatin 20 mg tablet 20 mg PO QAM 09/14/22 loperamide 2 mg capsule 2 mg PO Q4H PRN Diarrhea 03/2312/02/24 Previous Rx's ?Medication ?Instructions ?Recorded foot soak basin #1 ea 12/09/22 park brace. #1 ea 02/18/23 zinc oxide-cod liver oil 40 % 1 applic topical BID #57 grams 04/25/24 topical paste (Desitin) naltrexone 50 mg tablet 50 mg PO DAILY #30 tabs 06/30 05/25 Allergies Allergy/AdvReac Type Severity Reaction Status Date / Time corn Allergy ADR-Nausea Verified 12/02/24 13:06 [place] Allergy Uknown Verified 12/02/24 13:06 pear Allergy ALGY-Rash Verified 12/02/24 13:06 Penicillins Allergy ALGY-Difficulty Verified 12/02/24 13:06 Breathing PFSH ED 2 PFSH: Medical History (Updated 03/14/25 @ 04:54 by Joey Leon DO) Depression Psychiatric care Alcoholic intoxication Peripheral vascular disease Alcohol withdrawal Alcoholic ketoacidosis Hypomagnesemia Alcohol abuse Generalized weakness Anxiety Myocardial infarction Alcoholism Pancreatitis Status post chemoradiation Cholelithiasis Dizziness Anal cancer COPD (chronic obstructive pulmonary disease) Hypertension CVA (cerebral vascular accident) DVT (deep venous thrombosis) Acute dehydration Vomiting Surgical History Status post laparoscopic cholecystectomy (11/13/20) Hx of non-cataract eye surgery Hx of cataract extraction History of ankle surgery History of tonsillectomy Status post colonoscopy Family History Mother Alzheimer's dementia Stomach cancer Father Throat cancer Other Family history non-contributory Social History Smoking and tobacco/nicotine status: unknown if used tobacco/nicotine Alcohol intake: current Alcohol intake frequency: 3 or more drinks per day Substance/Drug Use: never Adopted: No Lives independently: No Household members: family and other Details: 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 a 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 rental 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 caretaker Housing: Manufactured/Mobile home Marital status: Number of children: 0 Highest education level completed: Bachelor's Degree service: No Current occupational status: disabled Current occupational exposures/hazards: No Pets and animals: Yes Pets & animals: cat(s) and dog(s) Leisure activites: reading and other Leisure activities details: watch TV Sexually active: No Do you think of yourself as: Lesbian/Vargas/Homosexual Current gender identity: Male Christelle/Denominational: Congregation Special christelle needs: No Agree to transfusion: Yes Physical Exam 2 Const: COMMON NORMALS: no acute distress EXAM LIMITATIONS: altered mental status GENERAL APPEARANCE: cooperative and frail appearing O RIENTATION/CONSCIOUSNESS: Yes awake, Yes oriented to person and Yes oriented to place HENMT: COMMON NORMALS: normocephalic, atraumatic and Normal external nose present HEAD & SCALP: normocephalic and atraumatic FACE & SINUS: face symmetric NOSE: Normal external nose present Eye: OTHER: Chronic left whitening Neck/C-Spine: GENERAL: Yes trachea midline CERVICAL SPINE: Yes cervical ROM normal Chest: OTHER: Atraumatic Resp: COMMON NORMALS: clear to auscultation bilaterally EFFORT & INSPECTION: Yes symmetric chest movement AUSCULTATION: clear to auscultation bilaterally Cardio: RATE: not tachycardic Neuro: SENSORIUM/ORIENTATION: Yes oriented to person and Yes oriented to place Course 2 Vital Signs: Vital signs: Vital Signs Temperature 93.1 F L 03/14/25 04:30 Pulse Rate 103 H 03/14/25 02:38 Respiratory Rate 24 H 03/14/25 00:58 Blood Pressure 101/64 03/14/25 04:30 Pulse Oximetry 98 03/14/25 04:30 Oxygen Delivery Me thod Room Air 03/14/25 04:02 MDM - Altered Mental Status Medical Decision Making Patient appears mildly intoxicated but otherwise at baseline. Of note, the patient had had diarrhea previously. He vomited once and CT. Blood pressure was mildly soft on arrival, improved with fluid. CBC shows a platelet count of 137. BMP is normal. Chest x-ray is negative. Head CT is negative. Pelvis x-ray shows no acute fracture. There is noted dilated small bowel up to 3.[address] is pending. His lactic significantly elevated at 12 on arrival. Repeat after bolus has decreased to 10. Ethanol level is 69. CRP is only 20. Patient does not appear septic in the sense of bacterial infection and therefore antibiotics have not been ordered. He is hypovolemic. His temperature on arrival was 87.3 ?F. Lovely hugger was placed, temperature is up to 93.1 currently. We have a call out to the hospitalist for admission given the lactic acidosis, hypomagnesemia, dehydration, diarrhea, and potential small bowel obstruction. CT is pending. Nasogastric tube has been ordered. Spoke with hospitalist. He requests cortisol levels and a TSH. He will see the patient. Admission orders been written Lab Data 03/14/25 01:04 03/14/25 01:04 Radiology Impressions Chest X-Ray 03/14/25:26 IMPRESSION: No focal consolidation, pleural effusion, or pneumothorax. Head CT 03/14/25: IMPRESSION: No acute intracranial hemorrhage. No midline shift or mass effect. Pelvis X-Ray 03/14/25:26 IMPRESSION: 1. Dilated small bowel measuring up to 3.6 cm, concerning for small bowel obstruction. 2. No acute fracture or dislocation. Laboratory Results WBC 8.78 10^3/uL (3.29-11.43) 03/14/25 01:04 RBC 3.55 10^6/uL (3.85-5.65) L 03/14/25 01:04 Hgb 11.40 g/dL (11.27-16.99) 03/14/25 01:04 Hct 36.5 % (37-53) L 03/14/25 01:04 MCV 102.8 fl (82-101) H 03/14/25 01:04 MCH 32.1 pg (27-33) 03/14/25 01:04 MCHC 31.2 g/dL (30-55) 03/14/25 01:04 RDW 17.2 % (12.1-15.1) H 03/14/25 01:04 Plt Count 137 10^3/cmm (157-399) L 03/14/25 01:04 MPV 10.5 fL (7.4-10.4) H 03/14/25 01:04 Neut % (Auto) 89.7 % 03/14/25 01:04 Lymph % (Auto) 3.0 % 03/14/25 01:04 [place] % (Auto) 6.4 % 03/14/25 01:04 Eos % (Auto) 0.1 % 03/14/25 01:04 Baso % (Auto) 0.3 % 03/14/25 01:04 Neut # (Auto) 7.88 10^3/uL (1.8-7.7) H 03/14/25 01:04 Lymph # (Auto) 0.3 10^3/uL (0.8-4.8) L 03/14/25 01:04 [place] # (Auto) 0.6 10^3/uL (0.2-0.9) 03/14/25 01:04 Eos # (Auto) 0.0 10^3/uL (0.0-0.8) 03/14/25 01:04 Baso # (Auto) 0.0 10^3/uL (0.0-0.1) 03/14/25 01:04 Nucleated RBC % (auto) 0 % 03/14/25 01:04 Nucleated RBCs # 0.0 /100WBC 03/14/25 01:04 PT 13.60 SECONDS (12.1-14.9) 03/14/25 01:04 INR 0.97 (0.8-1.2) 03/14/25 01:04 Sodium 145 mmol/L (136-145) 03/14/25 01:04 Potassium 3.9 mmol/L (3.5-5.1) 03/14/25 01:04 Chloride 100 mmol/L (98-107) 03/14/25 01:04 Carbon Dioxide 9 mmol/L (22-29) L 03/14/25 01:04 Anion Gap 39.9 (5-19) H 03/14/25 01:04 BUN 12 mg/dL (8-23) 03/14/25 01:04 Creatinine 0.7 mg/dL (0.7-1.2) 03/14/25 01:04 GFR Calculation Not Reportable 03/14/25 01:04 Glucose 103 mg/dL (65-115) 03/14/25 01:04 POC Glucose 194 mg/dL (70-110) H 03/14/25 03:28 Calculated Osmolality 300 mOsm/kg (285-295) H 03/14/25 01:04 Lactic Acid 12.0 mmol/L (0.5-2.2) H* 03/14/25 01:04 Lactic Acid (Sepsis) 10.1 mmol/L (0.5-2.2) H* 03/14/25 03:52 Calcium 8.2 mg/dL (8.5-10.5) L 03/14/25 01:04 Phosphorus 5.8 mg/dL (2.5-4.5) H 03/14/25 01:04 Magnesium 1.6 mg/dL (1.7-2.3) L 03/14/25 01:04 Total Bilirubin 0.5 mg/dL (0.15-1.2) 03/14/25 01:04 AST 39 U/L (0-40) 03/14/25 01:04 ALT 12 U/L (0-41) 03/14/25 01:04 Alkaline Phosphatase 116 U/L (40-130) 03/14/25 01:04 Creatine Kinase 410 U/L (39-308) H* 03/14/25 01:04 C-Reactive Protein 19.9 mg/L (0.0-4.9) H 03/14/25 01:04 Total Protein 5.9 g/dL (6.6-8.7) L 03/14/25 01:04 Albumin 3.3 g/dL (3.5-5.2) L 03/14/25 01:04 Globulin 2.6 g/dL (1.3-4.6) 03/14/25 01:04 Ethyl Alcohol 69 mg/dL (0-10) H 03/14/25 01:04 Influenza A (PCR) Negative (Negative) 03/14/25 02:18 Influenza Type B (PCR) Negative (Negative) 03/14/25 02:18 RSV (PCR) Negative (Negative) 03/14/25 02:18 SARS-CoV-2 (PCR) Negative (Negative) 03/14/25 02:18 All radiology interpretation(s) finalized by discharge EKG Data EKG 1: Interpretation: EKG time 0138, read 0141. Atrial fibrillation. Controlled rate of 90. [place] is normal. UTC is 485. No acute ST wave changes. Critical Care Time 2 Critical Care Time: Critical Care Time: Yes Total Critical Care Time: 35 Attestation: This case had a high probability of a clinically significant, sudden, or life threatening deterioration of this patient's condition which required my full and direct attention, intervention and personal management. Time is independent of any procedures performed Discharge Plan Discharge Patient Disposition: Admitted As Inpatient Clinical Impression: Alcohol abuse, Physical deconditioning, Diarrhea, Acute lactic acidosis, Hypothermia Condition: Fair Coding Level of Care Code ED Server Service Assistant for Katrin Mike
[2025-03-14 01:59] LABS: Alanine Aminotransferase 12 U/L (0-41); Albumin Level 3.3 g/dL (3.5-5.2); Alcohol Level 69 mg/dL (0-10); Alkaline Phosphatase 116 U/L (40-130); Anion Gap 39.9 (5-19); Aspartate Amino Transferase 39 U/L (0-40); Blood Urea Nitrogen 12 mg/dL (8-23); Calcium 8.2 mg/dL (8.5-10.5); Chloride 100 mmol/L (98-107); Globulin 2.6 g/dL (1.3-4.6); Glucose 103 mg/dL (65-115); Magnesium 1.6 mg/dL (1.7-2.3); Osmolality Calculated 300 mOsm/kg (285-295); Potassium 3.9 mmol/L (3.5-5.1); Sodium 145 mmol/L (136-145); Total Protein 5.9 g/dL (6.6-8.7)
[2025-03-14 02:03] LABS: Carbon Dioxide 9 mmol/L (22-29); Lactic Sepsis W/Reflex 12.0 mmol/L (0.5-2.2)
[2025-03-14 02:06] LABS: INR 0.97 (0.8-1.2); Prothrombin Time 13.60 SECONDS (12.1-14.9)
[2025-03-14] MEDS: magnesium sulfate premix 2 GM/50 ML PIGGYBACK IV (02:34)
[2025-03-14 02:59] LABS: Respiratory Syncytial Virus Ce NEGATIVE (Negative); SARS-CoV-2 PCR NEGATIVE (Negative)
[2025-03-14 03:30] LABS: Reflex Lactate Order REFLEX LACTIC ORDERD
[2025-03-14 04:36] LABS: Lactic Acid level (Lactate) 10.1 mmol/L (0.5-2.2)
--- NOTE | 2025-03-14 04:48 | CTR_ITS ---
PROCEDURE INFORMATION: Exam: CT Abdomen And Pelvis With Contrast Exam date and time: 03/14/2025 4:58 AM Age: 74 years old Clinical indication: Abnormal findings; Abnormal lab test and abnormal radiologic finding of the abdomen; Nausea and vomiting; Prior surgery; Surgery date: 6+ months; Surgery type: Gb; N/v/d with dilated small bowel noted on pelvis xray. Lactic acid of 10.1. History of rectal cancer. ; Additional info: Diarrhea, dilated small bowel TECHNIQUE: Imaging protocol: Computed tomography of the abdomen and pelvis with contrast. Radiation optimization: All CT scans at this facility use at least one of these dose optimization techniques: automated exposure control; mA and/or kV adjustment per patient size (includes targeted exams where dose is matched to clinical indication); or iterative reconstruction. Contrast material: OMNI 350; Contrast volume: 80 ml; Contrast route: INTRAVENOUS (IV); COMPARISON: CT abdomen pelvis w con* [id number] 03/29/2022 4:47 PM RADIATION DOSE METRICS: Total DLP (mGy-cm): 881.26 FINDINGS: Lungs: Left lower lobe volume loss. There is fibrosis in the subpleural medial basal segment with some bronchovascular tethering and mild localized bronchiectasis. Liver: Hepatic steatosis. Gallbladder and biliary ducts: Cholecystectomy. Negative for biliary system dilation. Pancreas: Peripancreatic distribution edema around the head and proximal body. Negative for pseudocyst. Negative for mass. Negative for main duct dilation. Spleen: Normal. No splenomegaly. Adrenal glands: Normal. No mass. Kidneys and ureters: Simple cyst in the left kidney interpolar renal sinus area measures 3.6 cm x 2.8 cm; previously 3.4 cm x 2.7 cm. Negative for hydronephrosis. Negative for stones. Negative for acute perinephric inflammation. Stomach and bowel: Distended stomach. Large intraluminal air-fluid level. The duodenal sweep position is anatomic. The large bowel is predominantly collapsed in appearance. Dilated small bowel loops in the midabdomen with prominent wall thickening noted. Several of the small bowel loops are also collapsed in appearance. No focal bowel wall masses are identified. Negative for pneumatosis intestinalis. Negative for bowel perforation. Appendix: No evidence of appendicitis. Intraperitoneal space: Unremarkable. No free air. No significant fluid collection. Vasculature: Scattered plaques within the abdominal aorta wall. Negative for abdominal aortic aneurysm. Negative for dissection. No vascular occlusions are identified. The portal venous system is patent. The mesenteric venous system appears to be patent. Celiac artery is patent with mild origin stenosis. Superior mesenteric artery is patent without significant stenosis. Inferior mesenteric artery is patent without significant stenosis. Lymph nodes: Unremarkable. No enlarged lymph nodes. Urinary bladder: Unremarkable as visualized. Reproductive: Unremarkable as visualized. Bones/joints: Several chronic compression fractures in the thoracolumbar spine redemonstrated without interval change. Negative for acute lumbar spine or pelvic fracture. Soft tissues: Unremarkable. CT/CT abdomen pelvis w con* [id number] IMPRESSION: 1. Thick-walled dilated small bowel loops more likely representing a nonspecific enteritis pattern, with small bowel obstruction less favored. 2. Peripancreatic edema. Consider pancreatitis versus nonspecific duodenitis.
[2025-03-14] MEDS: iohexol 350 mg/mL 500 mL Btl (per mL) IV (05:11)
[2025-03-14 05:56] LABS: Thyroid Stimulating Hormone 0.73 uIU/mL (0.27-4.20)
--- NOTE | 2025-03-14 05:58 | XRR_ITS ---
PROCEDURE INFORMATION: Exam: XR Chest Exam date and time: 03/14/2025 5:56 AM Age: 74 years old Clinical indication: Device placement; Ng tube; Prior surgery; Surgery date: 6+ months; Surgery type: Humeral noah. Gb; Check S/P ng placement TECHNIQUE: Imaging protocol: Radiologic exam of the chest. Views: 1 view. COMPARISON: CR (CHEST, ) 03/14/2025 1:40 AM FINDINGS: Tubes, catheters and devices: Enteric catheter in the stomach. Lungs: Unremarkable. No consolidation. Pleural spaces: Unremarkable. No pleural effusion. No pneumothorax. Heart/Mediastinum: Cardiac enlargement. Bones/joints: Old, healed right posterior rib fracture deformities. Old, healed left posterior rib fracture deformities. Old, healed right humeral neck fracture deformity. Bones are diffusely demineralized. Intramedullary noah in the left humeral diaphysis. XR/XR chest 1V portable [id number] IMPRESSION: No acute pulmonary disease identified.
--- NOTE | 2025-03-14 07:12 | PM.HP ---
Providers/Chief Complaint Admitting Physician: Anjum Matson MD Primary Care Provider: Medardo Bowers MD Chief Complaint: FALL History of Present Illness Gerardo Millan is a 74 year old male lives about 25 miles away from [place] with his best friend Lex [place]. Patient has had nausea vomiting and diarrhea for 2 weeks. He states he feels bloated. He has had bowel problems in the past but never this long. He does not walk much so he gets cramps in the legs. Describes them as charley horses and then complete resolution of the pain. He states that with a cane or walker he can walk about 50 feet. Patient reports chills and cold all the time but denies fevers. He was cold this a.m. He states he keeps the house at 80 but they have had furnace problems. He states his friend also gets cold. Patient tells me that maybe he dropped his temperature riding in an ambulance but he was noted to have a temperature of 87 on arrival. Also noted to have lactic acidosis not responding completely to fluid boluses. Patient CT scan shows small bowel enteritis and NG tube has been placed with 500 cc returned. Fluid return is greenish-brown. Review of Systems Narrative: General Positive for chills no fevers he has been hypothermic. Patient states his weight is between 120 and 123 since he had colon cancer treated with chemoradiation in 2019. He did have significant weight loss prior to that time. CV no chest pain palpitations or edema Respiratory no shortness of breath cough wheezing GI positive for nausea vomiting diarrhea for 2 weeks no blood no dysuria hematuria Neuroseizure stroke symptoms but he has had several strokes in the past and walks with a cane or walker Heme positive for left leg DVT around the time of his cancer. Malignancy history positive for: Cancer does not sound like it was adenocarcinoma because they did not opt to do surgery but treated a nickel sized tumor with chemotherapy and radiation Medications/Allergies Home Medications ?Medication ?Instructions ?Recorded ?Confirmed ?Last Taken ?Type atorvastatin 20 mg tablet 20 mg PO QAM 09/14/22 03/14/25 03/10/24 History foot soak basin #1 ea 12/09/22 03/14/25 Unknown Rx park brace. #1 ea 02/18/23 03/14/25 Unknown Rx loperamide 2 mg capsule 2 mg PO Q4H PRN Diarrhea 03/11/24 03/14/25 Unknown History zinc oxide-cod liver oil 40 % 1 applic topical BID PRN Skin 03/14/25 03/14/25 Unknown History topical paste (Desitin) Irritation Allergies Allergy/AdvReac Type Severity Reaction Status Date / Time corn Allergy ADR-Nausea Verified 12/02/24 13:06 [place] Allergy Uknown Verified 12/02/24 13:06 [place] Allergy ALGY-Rash Verified 12/02/24 13:06 Penicillins Allergy ALGY-Difficulty Verified 12/02/24 13:06 Breathing PFSH Acute PFSH: Medical History (Updated 03/14/25 @ 07:40 by Anjum Matson MD) Depression Psychiatric care Alcoholic intoxication Peripheral vascular disease Alcohol withdrawal Alcoholic ketoacidosis Hypomagnesemia Alcohol abuse Generalized weakness Anxiety Myocardial infarction Alcoholism Pancreatitis Status post chemoradiation Cholelithiasis Dizziness Anal cancer COPD (chronic obstructive pulmonary disease) Hypertension CVA (cerebral vascular accident) DVT (deep venous thrombosis) Acute dehydration Vomiting Surgical History Status post laparoscopic cholecystectomy (11/13/20) Hx of non-cataract eye surgery Hx of cataract extraction History of ankle surgery History of tonsillectomy Status post colonoscopy Family History Mother Alzheimer's dementia Stomach cancer Father Throat cancer Other Family history non-contributory Social History (Updated 03/14/25 @ 07:27 by Anjum Matson MD) Smoking and tobacco/nicotine status: current every day tobacco/nicotine user cigarettes Number of cigarettes per day: 1-5 Alcohol intake: current Alcohol intake frequency: 3 or more drinks per day Alcohol type: hard liquor Alcohol use comment: Patient reports to 1 shot vodka drinks daily but alcohol level 69 Substance/Drug Use: never Additional social history: Patient tells me he wants DNR status as discussed with Anjum Matson MD on 03/14/2025. He told me that his live-in partner's more like his twin brother. He also did not tell me he has HIV drinks heavily or is torres. Dr. Bowers's physician gave me more history. 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 [employer] Pets and animals: Yes Pets & animals: cat(s) and dog(s) Leisure activites: reading and other Leisure activities details: watch TV Sexually active: No Do you think of yourself as: Lesbian/Tor[place]/Homosexual Current gender identity: Male Christelle/Sabianism: Lutheran Special christelle needs: No Agree to transfusion: Yes Vitals/I&O/Wt Last Vital Signs Temp 96.8 F L 03/14/25 07:09 Pulse 79 03/14/25 07:00 Resp 24 H 03/14/25 00:58 BP 123/72 03/14/25 07:00 Pulse Ox 99 03/14/25 07:00 O2 Del Method Room Air 03/14/25 04:02 03/13/25 03/14/25 03/14/25 22:59 06:59 14:59 Intake Total 1963.59 / 1963.59 Balance 1963.59 / 1963.59 Weight last 48 hrs Weight 57.153 kg Physical Exam Narrative: General Well-developed well-thin chronically ill-appearing male in no acute cardiopulmonary distress Oropharynx Mallampati 3 CV regular rate and rhythm without loud murmurs Lungs clear to auscultation bilaterally Abdomen diminished bowel tones soft mildly distended Calves no tenderness cords pretibial edema Radial pulses 2+ Dorsal pedal pulses 1+ Mentation he is alert oriented pleasant Skin warm and dry Data 03/14/25 01:04 03/14/25 01:04 CT Abd/Pel: Radiologist's impression: IMPRESSION: 1. Thick-walled dilated small bowel loops more likely representing a nonspecific enteritis pattern, with small bowel obstruction less favored. 2. Peripancreatic edema. Consider pancreatitis versus nonspecific duodenitis. A&P Assessment and plan 1. Enteritis of small intestine: Patient denies history of Crohn's or ulcerative colitis. He reports a history of colon cancer but looking at his chart it looks like he had rectal cancer. This was treated with radiation and chemotherapy 2018. Dr. Bowers who is the patient's primary care physician states that the patient has a history of HIV but looking at the HIV test we have here they were negative in 2019. Will repeat that as well as obtain a T and B-cell count. Cannot exclude opportunistic causes of small bowel infection with his diarrhea and severe lactic acidosis 2. Hypothermia: Resolved with warming blanket and hydration unclear etiology. Dr. Bowers tells me the patient has HIV. Random cortisol was 38 and his TSH was 0.73 3. Acute lactic acidosis: Minimally improved with initial fluid boluses. CPK was only mildly elevated at 440. 4. Diarrhea: Will obtain T and B cell count as well as HIV test. If positive consider testing for opportunistic infections such as Cryptosporidium, microsporidia him bacteria viruses or fungi depending on what the CD4 count 5. Alcohol intoxication: Patient's alcohol level today 69 despite being hypothermic and having nausea vomiting diarrhea. This is not very consistent with his report of drinking only 2 shots of vodka and 2 mixed drinks daily. He told me he last drank heavily 20 years ago but his alcohol level was 297 5 months ago in September 2024 PDMP PDMP Reviewed: Not Reviewed Attestations Medical Necessity Statement*: Patient admitted to hospital with hypothermia and small bowel obstruction and will require greater than 2 midnights Coding Level of Care Code 00964 Diagnoses Enteritis of small intestine K52.9 Hypothermia T68.XXXA Acute lactic acidosis E87.21 Diarrhea R19.7 Alcohol intoxication F10.929 Time Spent (min) 80
[2025-03-14 07:41] LABS: Ketone (Acetest) Serum Negative (Negative)
[2025-03-14 08:10] LABS: Lactate (Lactic Acid level) 5.1 mmol/L (0.5-2.2)
[2025-03-14] MEDS: dextrose 5%-lr + KCl 20 1,000 ML 125 MEQ IV ×3 (08:10→21:38)
[2025-03-14] MEDS: pantoprazole 40 mg SDV IVP (08:10)
[2025-03-14 08:21] LABS: HIV 1 & 2 Antigen Non-Reactive (Non-Reactiv)
[2025-03-14] MEDS: morphine 4 mg/mL SDV 1 mL 2 MG IVP (21:37)
[2025-03-15] VITALS (10 sets, daily range): BP systolic 117–151; BP diastolic 69–95; PULSE 78–108; RESP 15–19; TEMP 36.4–37; O2SAT 90–100
[2025-03-15] MEDS: morphine 4 mg/mL SDV 1 mL 2 MG IVP (00:15)
--- NOTE | 2025-03-15 02:36 | PC.NURSE ---
Notified re; pt non-compliant with ICE chip, pt already had 4 c of ice and cont to keep asking for more. IVF 125 cc per hour , pt dec UO 200 cc total 8 hour, inc white/yellow phlegm, desat 88% RA. pt wide awake, co pain - adm 2 mg Morphine- pt 30 min later desat. on x 4 L but we started him 2 L nc around 7:30 pm. see new orders incl CIWA.
[2025-03-15] MEDS: dextrose 5%-lr + KCl 20 1,000 ML 75 MEQ IV ×2 (03:20→16:59)
[2025-03-15] MEDS: multivitamin therapeutic Tablet 1 TAB PO (05:47)
[2025-03-15 06:28] LABS: Hematocrit 32.1 % (37-53); Hemoglobin 10.30 g/dL (11.27-16.99); Mean Corpuscular HGB Conc 32.1 g/dL (30-55); Mean Corpuscular Hemoglobin 32.1 pg (27-33); Mean Corpuscular Volume 100.0 fl (82-101); Nucleated Red Blood Cells % 0 %; Platelet Count 103 10^3/cmm (157-399); Red Blood Count 3.21 10^6/uL (3.85-5.65); White Blood Count 7.27 10^3/uL (3.29-11.43)
[2025-03-15 06:42] LABS: Slide Review Slide Review Perform
[2025-03-15 06:46] LABS: Alanine Aminotransferase 8 U/L (0-41); Albumin Level 2.7 g/dL (3.5-5.2); Alkaline Phosphatase 96 U/L (40-130); Anion Gap 10.7 (5-19); Aspartate Amino Transferase 35 U/L (0-40); Blood Urea Nitrogen 14 mg/dL (8-23); Calcium 7.0 mg/dL (8.5-10.5); Carbon Dioxide 26 mmol/L (22-29); Chloride 112 mmol/L (98-107); Globulin 2.1 g/dL (1.3-4.6); Glucose 127 mg/dL (65-115); Magnesium 1.5 mg/dL (1.7-2.3); Osmolality Calculated 302 mOsm/kg (285-295); Potassium 3.7 mmol/L (3.5-5.1); Sodium 145 mmol/L (136-145); Total Protein 4.8 g/dL (6.6-8.7)
[2025-03-15] MEDS: pantoprazole 40 mg SDV IVP (09:41)
[2025-03-15] MEDS: calcium gluconate 0.9% NaCL 1 GM/50 ML PREMIX IV ×2 (09:56→10:47)
[2025-03-15] MEDS: magnesium sulfate premix 2 GM/50 ML PIGGYBACK IV (11:18)
--- NOTE | 2025-03-15 13:09 | P.CONIM_ITS ---
Providers/Reason For Consult 2 Consulting Physician/Specialty*: Dr. Bustos general surgery Reason for Consult*: Rule out SBO Attending Physician: Kasia Elliott MD Primary Care Provider: Medardo Bowers MD History of Present Illness History of Present Illness Gerardo Millan is a 74 year old male whom surgery was consulted to rule out SBO. Patient reports passing gas. Not nauseated. NG tube about a liter but per nurse has been taking a lot of chips. Abdomen is benign. Nondistended. Patient did have a lactic acidosis however CT scan findings were consistent with enteritis and on my review of the images not concerning for anything surgical. Medications/Allergies Home Medications ?Medication ?Instructions ?Recorded ?Confirmed ?Last Taken ?Type atorvastatin 20 mg tablet 20 mg PO QAM 09/14/2203/10/24 History foot soak basin #1 ea 12/09/22 03/14/25 Unkn own Rx park brace. #1 ea 02/18/23 03/14/25 Unkn own Rx loperamide 2 mg capsule 2 mg PO Q4H PRN Diarrhea 03/2303/14/25 Unknown History zinc oxide-cod liver oil 40 % 1 applic topical BID PRN Skin 03/14/25 03/14/25 Unknown History topical paste (Desitin) Irritation Allergies Allergy/AdvReac Type Severity Reaction Status Date / Time corn Allergy ADR-Nausea Verified 12/02/24 13:06 [place] Allergy Uknown Verified 12/02/24 13:06 pear Allergy ALGY-Rash Verified 12/02/24 13:06 Penicillins Allergy ALGY-Difficulty Verified 12/02/24 13:06 Breathing Current Medications Generic Name Dose Route Start Last Admin Trade Name Freq PRN Reason Stop Dose Admin Albuterol Sulfate 2.5 mg 03/15/25 02:07 03/15/25 03:41 Albuterol 2.5 Mg/0.5 Ml Neb INHALATION 2.5 mg Q6H.RESP PRN Administration SHORTNESS OF BREATH Enoxaparin Sodium 40 mg 03/14/25 07:38 03/15/25 09:41 Enoxaparin 40 Mg/0.4 Ml Syringe SUBCUT 40 mg Q24H AYE Administration Folic Acid 1 mg 03/15/25 05:00 03/15/25 05:47 Folic Acid 1 Mg Tablet PO 1 mg DAILY AYE Administration Dextrose 250 mls @ 1,000 mls/hr 03/14/25 01:54 03/14/25 04:17 D10w IV Infused PRN PRN Infusion HYPOGLYCEMIA Potassium Cl/Dextrose/Lact Ringer's 1,000 mls @ 75 mls/hr 03/15/25 02:15 03/15/25 03:20 Dextrose 5%-Lr + Kcl 20 IV 75 mls/hr .[id number] AYE Administration Multivitamins Therapeutic 1 tab 03/15/25 05:00 03/15/25 05:47 Multivitamin Therapeutic Tablet PO 1 tab DAILY AYE Administration Pantoprazole Sodium 40 mg 03/14/25 07:38 03/15/25 09:41 Pantoprazole 40 Mg Sdv IVP 40 mg Q24H AYE Administration PFSH Acute 2 PFSH: Medical History (Updated 03/15/25 @ 08:01 by Kasia Elliott MD) Depression Psychiatric care Alcoholic intoxication Peripheral vascular disease Alcohol withdrawal Alcoholic ketoacidosis Hypomagnesemia Alcohol abuse Generalized weakness Anxiety Myocardial infarction Alcoholism Pancreatitis Status post chemoradiation Cholelithiasis Dizziness Anal cancer COPD (chronic obstructive pulmonary disease) Hypertension CVA (cerebral vascular accident) DVT (deep venous thrombosis) Acute dehydration Vomiting Surgical History Status post laparoscopic cholecystectomy (11/13/20) Hx of non-cataract eye surgery Hx of cataract extraction History of ankle surgery History of tonsillectomy Status post colonoscopy Family History Mother Alzheimer's dementia Stomach cancer Father Throat cancer Other Family history non-contributory Social History (Updated 03/14/25 @ 07:27 by Anjum Matson MD) Smoking and tobacco/nicotine status: current every day tobacco/nicotine user cigarettes Number of cigarettes per day: 1-5 Alcohol intake: current Alcohol intake frequency: 3 or more drinks per day Alcohol type: hard liquor Alcohol use comment: Patient reports to 1 shot vodka drinks daily but alcohol level 69 Substance/Drug Use: never Additional social history: Patient tells me he wants DNR status as discussed with Anjum Matson MD on 03/14/2025. He told me that his live-in partner's more like his twin brother. He also did not tell me he has HIV drinks heavily or is torres. Dr. Bowers's physician gave me more history. 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 [employer] Pets and animals: Yes Pets & animals: cat(s) and dog(s) Leisure activites: reading and other Leisure activities details: watch TV Sexually active: No Do you think of yourself as: Lesbian/Torres/Homosexual Current gender identity: Male Christelle/Pentecostalism: Latter Day Special christelle needs: No Agree to transfusion: Yes Vitals/I&O/Wt Last Vital Signs Temp 97.7 F 03/15/25 11:48 Pulse 98 03/15/25 11:48 Resp 18 03/15/25 11:48 BP 151/95 03/15/25 11:48 Pulse Ox 91 03/15/25 11:48 O2 Del Method Nasal Cannula 03/15/25 11:48 O2 Flow Rate 6 03/15/25 09:18 03/14/25 03/15/25 03/15/25 22:59 06:59 14:59 Intake Total 1652.083 / 2702.083 1000 / 3702.083 100 / 100 Output Total 350 / 350 Balance 1302.083 / 2352.083 1000 / 3352.083 100 / 100 Weight last 48 hrs Weight 139 lb 9 oz Weight 129 lb 8 oz Weight 126 lb Physical Exam 2 Narrative: NG tube in place Chest: Unlabored breathing room air. No lymphadenopathy. Heart: Regular rate and rhythm. Abdomen: Soft, nontender, nondistended. No masses or lymphadenopathy. Data 03/15/25 05:44 03/15/25 05:44 A&P Assessment and plan 1. Enteritis of small intestine: Plan: 74-year-old male who was admitted with enteritis. Surgery consulted to rule out SBO. Low concern for SBO from my perspective. Instructed patient to minimize chip intake. If he continues having bowel function may be able to remove NG tube tomorrow. I think his clinical picture is most consistent with enteritis. Discussed with hospitalist. PDMP PDMP Reviewed: Not Reviewed Coding Level of Care Code 48355 Diagnoses Enteritis of small intestine K52.9
[2025-03-15 17:31] LABS: Glucose Urine UA Negative (Normal); Nitrate Urine Positive (Negative); Specific Gravity, Urine 1.026 (1.005-1.030)
[2025-03-15 17:33] LABS: Add Urine Microscopic? YES; Universal Test for UA Present (0)
--- NOTE | 2025-03-15 17:38 | P.PN_ITS ---
Subjective 2 Subjective: Patient seen in the morning, was not very much happy since he does not like NG tube and removed later on with refusal to put it back. He is having ice chips and would like to start something to eat He is passing gas. Surgery consulted since the NGT output was quite much and greenish in color. Advised to reduce his ice chips. Vitals/I&O/Wt Last Vital Signs Temp 98.6 F 03/15/25 16:00 Pulse 101 H 03/15/25 16:00 Resp 19 H 03/15/25 16:00 BP 125/76 03/15/25 16:00 Pulse Ox 90 03/15/25 16:00 O2 Del Method Nasal Cannula 03/15/25 16:00 O2 Flow Rate 6 03/15/25 09:18 03/15/25 03/15/25 03/15/25 06:59 14:59 22:59 Intake Total 1000 / 3702.083 150 / 150 1120 / 1270 Output Total 325 / 325 Balance 1000 / 3352.083 150 / 150 795 / 945 Weight last 48 hrs Weight 63.304 kg Weight 58.74 kg Weight 57.153 kg Physical Exam 2 Narrative: General: Alert and oriented, lying comfortably without any distress, was initially on NGT and later removed, NGT output greenish in color, patient having signs of physical deconditioning and cachexia from malnourishment. HEENT: Normocephalic, atraumatic, grossly unremarkable exam Cardio: normal rate rhythm, normal S1-S2 without any murmurs, rubs, or gallops and JVD normal Respiratory: normal vascular breathing on auscultation without any wheezes, stridor, rhonchi GI: Abdomen soft, nontender, nondistended, normoactive bowel sounds present all 4 quadrants, Neuro: intact cranial nerves motor and sensory and cerebellar/coordination function without any focal neurological deficit Behavior: Appropriate and cooperative Extremities: Adequate palpable pulses, mild trace edema, having lower leg scratch whitehead that could be related to patient having a cat as a pet. No open wound or oozing Data 03/15/25 05:44 03/15/25 05:44 A&P Assessment and plan 1. Enteritis of small intestine: Patient denies history of Crohn's or ulcerative colitis, and no other chronic history. He reports a history of colon cancer but looking at his chart it looks like he had rectal cancer. This was treated with radiation and chemotherapy 2018. Dr. Bowers who is the patient's primary care physician states that the patient has a history of HIV but looking at the HIV test we have here they were negative in 2019. Repeat HIV test was negative, T-cell subset awaited It is difficult to exclude opportunistic infections at the moment considering patient overall condition of malnourishment and physical deconditioning Patient is passing gas, keep n.p.o. for the meanwhile and tomorrow to start clear fluids Monitor intake and output Continue gentle hydration 2. Hypothermia: Resolved with warming blanket and hydration unclear etiology. Dr. Bowers tells the admitting physician that patient has HIV. Random cortisol was 38 and his TSH was 0.73 3. Acute lactic acidosis: Minimally improved with initial fluid boluses. CPK was only mildly elevated at 440. 4. Diarrhea: HIV test negative, awaited T-cell subset count,if positive consider testing for opportunistic infections such as Cryptosporidium, microsporidia him bacteria viruses or fungi depending on what the CD4 count Patient did not report diarrhea at the moment, 5. Alcohol intoxication: Patient's alcohol level today 69 despite being hypothermic and having nausea vomiting diarrhea. This is not very consistent with his report of drinking only 2 shots of vodka and 2 mixed drinks daily. He told me he last drank heavily 20 years ago but his alcohol level was 297 5 months ago in September 2024 Continue thiamine orally 6. Electrolyte imbalance: Patient electrolytes reviewed, having hypomagnesemia hypophosphatemia and hypocalcemia Correction provided Continue to monitor tomorrow 7. Severe malnutrition: Patient having severe malnourishment based on patient clinical signs and symptoms of cachexia physical deconditioning, Dietitian consult placed PDMP PDMP Reviewed: Not Reviewed Attestations 2 Medical Necessity Statement*: Patient will stay more than 2 midnights considering having enteritis and was on NGT with high output Patient will proceed due to diet slowly and gradually based on tolerance therefore will require to stay in the hospital and require IV hydration Time Spent in Patient Care: 16 - 35 minutes (>than 50% of time sp ent in counselling and/or direct pt care on unit) . Other Attestations: Patient condition has been discussed at length with the patient/family, I have independently reviewed the chart labs imaging/diagnostics/EKG. the goals of care and code status with the patient/family/NOK/legal sales representative consultant, and documented accordingly. I have reconciled the medications after confirmation/comorbidities/current clinical condition. The management has been done according to the current clinical condition with respect to patient goals of care and based on recommendations/guidelines. The patient/family has been informed about the current condition and further plan of care. Agreed with the plan of care and understood without any language barrier. Every effort was made to ensure accuracy of development geologist. Any obvious errors or omissions should be clarified with the author of the document. Coding Level of Care Code 18656 Diagnoses Enteritis of small intestine K52.9 Hypothermia T68.XXXA Acute lactic acidosis E87.21 Diarrhea R19.7 Alcohol intoxication F10.920 Complication of substance-induced condition: uncomplicated Electrolyte imbalance E87.8 Severe malnutrition E43
[2025-03-15 18:06] LABS: UA Slide Review UA Slide Review Perf
--- NOTE | 2025-03-15 19:22 | XRR_ITS ---
PROCEDURE INFORMATION: Exam: XR Chest Exam date and time: 03/15/2025 8:32 PM Age: 74 years old Clinical indication: Shortness of breath TECHNIQUE: Imaging protocol: Radiologic exam of the chest. Views: 1 view. COMPARISON: CR (CHEST, ) 03/14/2025 5:56 AM FINDINGS: Lungs: Bilateral perihilar and basilar opacities. New patchy opacities in the right upper lung. Pleural spaces: No pneumothorax. Probable small bilateral pleural effusions. Heart/Mediastinum: Unremarkable. No cardiomegaly. Bones/joints: Bilateral remote rib fractures. Partially visualized fixation noah in the left humerus. Remote posttraumatic deformity of the right humerus. No acute fracture. XR/XR chest 1V portable [id number] IMPRESSION: Interval development of perihilar and basilar opacities bilaterally as well as right upper lung opacities. Probable bilateral pleural effusions. Differential includes infection, aspiration, pulmonary edema, atelectasis or a combination of these.
--- NOTE | 2025-03-15 19:23 | USCV_ITS ---
Gerardo Millan Age: 74 Gender: M : 1950 Exam Date: 03/15/2025 19:48 Ordering Phys: Kasia Elliott MD Technologist: CONNIE [place] [facility] [place]: BP: 125 / 76 HR: 72 Rhythm: Sinus Technical Quality: MEASUREMENTS (Male / Female) Normal Values 2D ECHO LV Diastolic Diameter PLAX 4.9 cm 4.2 - 5.9 / 3.9 - 5.3 cm IVS Diastolic Thickness 1.3 cm 0.6 - 1.0 / 0.6 - 0.9 cm IVS Systolic Thickness 1.4 cm LVPW Diastolic Thickness 1.0 cm 0.6 - 1.0 / 0.6 - 0.9 cm LVPW Systolic Thickness 1.7 cm LVOT Diameter 2.1 cm LV Ejection Fraction 2D Teich 22.9 % LV Ejection Fraction MOD 4C 31.3 % LV Ejection Fraction MOD 2C 32.6 % LV Ejection Fraction 2C AL 33.2 % LA Diameter 4.0 cm LA Sys Volume AL 69.1 cm cubed Aorta at Sinotubular Diameter 3.5 cm IVC Diameter 2.2 cm M-MODE LA Ao Ratio MM 1.5 AV Cusp Separation MM 1.9 cm DOPPLER AV Peak Velocity 75.0 cm/s LVOT Peak Velocity 44.0 cm/s AV Area Cont Eq vti 2.4 cm squared AV Area Cont Eq pk 2.1 cm squared MV Peak Velocity 60.0 cm/s MV Area PHT 4.4 cm squared Mitral E to A Ratio 0.8 TV Peak Velocity 244.0 cm/s TR Peak Velocity 258.0 cm/s TR Peak Gradient 26.6 mmHg TV Peak E Velocity 36.0 cm/s PV Peak Velocity 70.0 cm/s FINDINGS Left Ventricle Moderately increased left ventricular cavity size. Severely decreased left ventricular systolic function. Left ventricular ejection fraction is estimated at 22 %. Global left ventricular hypokinesis. Grade I/IV diastolic dysfunction (abnormal relaxation filling pattern), normal to mildly elevated filling pressures. Right Ventricle Normal right ventricular size and systolic function. Right Atrium Moderately increased right atrial size. Left Atrium Mildly increased left atrial size. IA Septum Normal appearance of the interatrial septum. Mitral Valve Mildly thickened mitral valve. No mitral valve stenosis. Mild- moderate mitral valve regurgitation. Aortic Valve Mild aortic valve calcification. No aortic valve stenosis. Mild aortic valve regurgitation. Tricuspid Valve Normal tricuspid valve structure. No tricuspid valve stenosis or regurgitation. Normal pulmonary pressure. Pulmonic Valve Mild pulmonary valve regurgitation. Pericardium Left pleural effusion. Aorta Normal diameter of the aortic root and ascending thoracic aorta. IVC Dilated IVC with decreased respiratory variation. CONCLUSIONS Moderately increased left ventricular cavity size. Severely decreased left ventricular systolic function. Left ventricular ejection fraction is estimated at 22 %. Global left ventricular hypokinesis. Grade I/IV diastolic dysfunction (abnormal relaxation filling pattern), normal to mildly elevated filling pressures. Moderately increased right atrial size. Mildly thickened mitral valve. No mitral valve stenosis. Mild- moderate mitral valve regurgitation. Mild aortic valve calcification. No aortic valve stenosis. Mild aortic valve regurgitation. Left pleural effusion. Right atrial pressure is around 20 mm of mercury. Michael Garza MD (Electronically Signed) Final Date: 16 March 2025 09:56 S
[2025-03-15] MEDS: FUROsemide 10 mg/mL SDV 4mL 40 MG IVP (20:14)
[2025-03-16 04:00] VITALS: BP 101/65; PULSE 101; RESP 36; TEMP 36.8; O2SAT 82
[2025-03-16 04:20] VITALS: O2SAT 91
--- NOTE | 2025-03-16 05:20 | PC.NURSE ---
RT in to see patient, patient switched to oxymask at 15LPM. Clarified with any new additional orders; new orders entered by MD for BiPAP. Stated will come and assess patient.
[2025-03-16 05:28] LABS: Hematocrit 35.2 % (37-53); Hemoglobin 11.30 g/dL (11.27-16.99); Mean Corpuscular HGB Conc 32.1 g/dL (30-55); Mean Corpuscular Hemoglobin 32.4 pg (27-33); Mean Corpuscular Volume 100.9 fl (82-101); Nucleated Red Blood Cells % 0 %; Platelet Count 84 10^3/cmm (157-399); Red Blood Count 3.49 10^6/uL (3.85-5.65); White Blood Count 5.49 10^3/uL (3.29-11.43)
[2025-03-16 05:40] VITALS: PULSE 90; RESP 35; O2SAT 94
--- NOTE | 2025-03-16 05:56 | PC.NURSE ---
Was notified by RT patient wore BiPAP for 10 minutes and refused to wear any longer. Placed back on 12L via oxymask with saturations of 93%
[2025-03-16 05:58] LABS: Lactate (Lactic Acid level) 2.6 mmol/L (0.5-2.2)
[2025-03-16 06:00] LABS: Alanine Aminotransferase 10 U/L (0-41); Albumin Level 2.7 g/dL (3.5-5.2); Alkaline Phosphatase 79 U/L (40-130); Anion Gap 15.9 (5-19); Aspartate Amino Transferase 30 U/L (0-40); Blood Urea Nitrogen 15 mg/dL (8-23); Calcium 7.9 mg/dL (8.5-10.5); Carbon Dioxide 26 mmol/L (22-29); Chloride 106 mmol/L (98-107); Globulin 2.1 g/dL (1.3-4.6); Glucose 80 mg/dL (65-115); Magnesium 1.7 mg/dL (1.7-2.3); Osmolality Calculated 298 mOsm/kg (285-295); Potassium 3.9 mmol/L (3.5-5.1); Sodium 144 mmol/L (136-145); Total Protein 4.8 g/dL (6.6-8.7)
[2025-03-16] MEDS: FUROsemide 10 mg/mL SDV 4mL 40 MG IVP (06:09)
[2025-03-16 06:10] LABS: Slide Review Slide Review Perform
--- NOTE | 2025-03-16 06:11 | PC.NURSE ---
Notified of patient refusing BiPAP and removing oxymask currently stating he does not want anything on his face. Explained to patient risks of low oxygen saturations and inportance of wearing his oxygen but continues to refused. Was able to get patient to allow placing nasal cannula again at 6L with saturations of 88-89%
--- NOTE | 2025-03-16 06:17 | PC.NURSE ---
in to see patient. Patient continues to refuse wearing any oxygen delivery mask. Patient even removed nasal cannula with MD present, sustaining saturations of 75% on room air. Treatment plan discussed with patient by MD, to include choice of comfort care however patient stated he needs to discuss it with Rashad. Patient agreed to wear nasal cannula with the condition of receiving water. Per ok to give small amount of ice chips. On nasal cannula 6L spo2 89-90%
--- NOTE | 2025-03-16 06:52 | P.PN_ITS ---
Subjective 2 Subjective: Patient pulled his NG tube yesterday. He refused BiPAP this evening after chest x-ray showed pleural effusion and bilateral infiltrates with normal white count suggestive of heart failure. He has received diuresis and has voided some. He then refused the oxy mask and now is refusing his nasal cannula O2 at 6 L. With oxygen off he dropped to 75% and hovers around 84. He bargained for ice chips and his oxygen came back up to greater than 90 with 6 L oxygen Patient denies ever testing positive for HIV he says Dr. Bowers is confused him with his roommate Armond who does have HIV but is on medications as advertised on TV to suppress HIV and is doing well Vitals/I&O/Wt Last Vital Signs Temp 98.3 F 03/16/25 04:00 Pulse 90 03/16/25 05:40 Resp 36 H 03/16/25 04:00 BP 101/65 03/16/25 04:00 Pulse Ox 94 03/16/25 05:40 O2 Del Method Nasal Cannula 03/16/25 04:00 O2 Flow Rate 5 03/16/25 04:00 FiO2 60 03/16/25 05:40 03/15/25 03/15/25 03/16/25 14:59 22:59 06:59 Intake Total 150 / 150 1251.25 / 1401.25 Output Total 325 / 325 1050 / 1375 Balance 150 / 150 926.25 / 1076.25 -1050 / 26.25 Weight last 48 hrs Weight 59.222 kg Weight 63.304 kg Weight 58.74 kg Physical Exam 2 Narrative: General Well-developed well-thin chronically ill-appearing male in no acute cardiopulmonary distress Oropharynx Mallampati 3 CV regular rate and rhythm without loud murmurs Diminished breath sounds with some dullness in the left base. He has crackles in both lower lung lomeli. He has a very moist sounding cough Abdomen diminished bowel tones soft mildly distended Calves no tenderness cords pretibial edema Radial pulses 2+ Dorsal pedal pulses 1+ Mentation he is alert oriented pleasant but not cooperative Skin warm and dry Data 03/16/25 05:01 03/16/25 05:01 A&P Assessment and plan 1. Enteritis of small intestine: Patient denies history of Crohn's or ulcerative colitis, and no other chronic history. He reports a history of colon cancer but looking at his chart it looks like he had rectal cancer. This was treated with radiation and chemotherapy 2018. Dr. Bowers who is the patient's primary care physician and I talked and also patient clarified that it is his roommate Armond that has the HIV Repeat HIV test was negative, T-cell subset awaited It is difficult to exclude opportunistic infections at the moment considering patient overall condition of malnourishment and physical deconditioning Patient is passing gas, keep n.p.o. for the meanwhile and tomorrow to start clear fluids Monitor intake and output Patient developed worsened hypoxemia now requiring 6 L IV fluids were stopped and he was started on diuresis as well as BiPAP but he refused BiPAP Patient insist on ice chips and so we will give him a cup of ice. He was also bargaining and unwilling to wear the oxygen 2. Hypothermia: Resolved with warming blanket and hydration unclear etiology. Patient does not have HIV. Random cortisol was 38 and his TSH was 0.73. He was intoxicated at time of initiated and this is attributable therefore to exposure and malnutrition 3. Acute lactic acidosis: Minimally improved with initial fluid boluses. CPK was only mildly elevated at 440. This improved then lungs were wet so fluid was stopped and he was diuresed 4. Diarrhea: HIV test negative, and it is roommate that has the HIV Patient did not report diarrhea at the moment, 5. Alcohol intoxication: Patient's alcohol level today 69 despite being hypothermic and having nausea vomiting diarrhea. This is not very consistent with his report of drinking only 2 shots of vodka and 2 mixed drinks daily. He told me he last drank heavily 20 years ago but his alcohol level was 297 5 months ago in September 2024 Continue thiamine orally 6. Electrolyte imbalance: Patient electrolytes reviewed, having hypomagnesemia hypophosphatemia and hypocalcemia Correction provided Continue to monitor tomorrow 7. Severe malnutrition: Patient having severe malnourishment based on patient clinical signs and symptoms of cachexia physical deconditioning, Dietitian consult placed PDMP PDMP Reviewed: Not Reviewed Attestations 2 Medical Necessity Statement*: Patient remains hospitalized with enteritis and hypoxemia and will require greater than 2 additional midnights in hospital Coding Level of Care Code 24004 Diagnoses Enteritis of small intestine K52.9 Hypothermia T68.XXXA Acute lactic acidosis E87.21 Diarrhea R19.7 Alcohol intoxication F10.920 Complication of substance-induced condition: uncomplicated Electrolyte imbalance E87.8 Severe malnutrition E43 Time Spent (min) 60
[2025-03-16] MEDS: pantoprazole 40 mg SDV IVP (07:24)
[2025-03-16] MEDS: potassium phosphate (mEq K) 40 MEQ in sodium chloride 0.9% (100 ml) 100 ML 27.25 MEQ IV (07:57)
[2025-03-16 08:02] VITALS: BP 103/68; PULSE 109; RESP 19; TEMP 36.4; O2SAT 85
--- NOTE | 2025-03-16 08:38 | P.PN_ITS ---
Subjective 2 Subjective: No acute events overnight NG tube is out Patient is hungry Passing gas Vitals/I&O/Wt Last Vital Signs Temp 97.5 F L 03/16/25 08:02 Pulse 109 H 03/16/25 08:02 Resp 19 H 03/16/25 08:02 BP 103/68 03/16/25 08:02 Pulse Ox 85 L 03/16/25 08:02 O2 Del Method Oxymask 03/16/25 08:02 O2 Flow Rate 5 03/16/25 04:00 FiO2 60 03/16/25 05:40 03/15/25 03/16/25 03/16/25 22:59 06:59 14:59 Intake Total 1251.25 / 1401.25 Output Total 325 / 325 1050 / 1375 Balance 926.25 / 1076.25 -1050 / 26.25 Weight last 48 hrs Weight 130 lb 9 oz Weight 139 lb 9 oz Physical Exam 2 Narrative: Chest: Tachypneic Heart: Regular rate and rhythm. Abdomen: Soft, nontender, nondistended. No masses or lymphadenopathy. Data 03/16/25 05:01 03/16/25 05:01 A&P Assessment and plan 1. Enteritis of small intestine: Plan: 74-year-old male whom surgery was consulted to rule out SBO. Clinical picture most consistent with enteritis. Having bowel function. Okay to advance to clear liquids. Rest of care per hospitalist. Discussed with hospitalist and nurse. PDMP PDMP Reviewed: Not Reviewed Attestations 2 Medical Necessity Statement*: N/A Coding Level of Care Code 80719 Diagnoses Enteritis of small intestine K52.9
--- NOTE | 2025-03-16 08:41 | PC.RESP ---
called nursing for help. pt. DNR. pt.
--- NOTE | 2025-03-16 09:01 | PC.NURSE ---
Nurse rounded on patient at shift change. Pt was talking and was given his meds. The CREATIVE SERVICES WRITER went into see pt and clean him up and change his bed. Patient kept taking off his oxygen mask, during these time. Pt was educated on why he needed to keep them on. Respiratory and PT went into see pt. Patient had no pulse, pt was a DNR. time of 0840
--- NOTE | 2025-03-16 09:37 | PC.NURSE ---
MTS Notified of TOD. Full release. Reference #[id number]
--- NOTE | 2025-03-16 10:29 | PC.NURSE ---
Patient passed at 0840. Verified by Luz CHARLES and this nurse.
[2025-03-16 11:07] VITALS: BP 0/0; PULSE 0; RESP 0; TEMP -17.7; TEMP 0; O2SAT 0
--- NOTE | 2025-03-16 13:22 | PM.DDS ---
Discharge Providers DDS Date of Admission: 03/14/25 05:21 Date Summary Completed: 03/16/25 Attending Provider at Admission: Anjum Matson MD Attending Provider at Discharge: Kasia Elliott MD Primary Care Provider: Medardo Bowers MD DS Diagnoses Hospital Diagnoses 1. 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 Patient has had nausea vomiting and diarrhea for 2 weeks. He states he feels bloated. He has had bowel problems in the past but never this long. He does not walk much so he gets cramps in the legs. Describes them as charley horses and then complete resolution of the pain. He states that with a cane or walker he can walk about 50 feet. Patient reports chills and cold all the time but denies fevers. He was cold this a.m. He states he keeps the house at 80 but they have had furnace problems. He states his friend also gets cold. Patient tells me that maybe he dropped his temperature riding in an ambulance but he was noted to have a temperature of 87 on arrival. Also noted to have lactic acidosis not responding completely to fluid boluses. Patient CT scan shows small bowel enteritis and NG tube has been placed with 500 cc returned. Fluid return is greenish-brown. As per the admitting physician note and discussion with the patient, the patient preferred to have DNR. There was also suspected HIV as per discussion of the admitting physician with Dr. Bowers, however HIV workup was negative while T-cell subset count was also sent. He also had hypothermia and he was provided warming blankets. Random cortisol and TSH workup was also done. Initial boluses of fluids improved his condition. CPK was only 440. Summary Summary Summary: The patient admitted as a case of gastroenteritis with CT scan of abdomen and pelvis showing significant gastric distention and also dilated small bowel loops in the mid abdomen with prominent thickening. There was less likely suspicion of small bowel obstruction. The patient does not appear to be in sepsis or septic shock at presentation, it was more of a viral gastroenteritis picture or malabsorption without any WBCs count however features of severe malabsorption/malnourishment was evident based on patient's physical examination. He was kept on supportive management. The patient was put on NGT and suction. During patient hospital stay he was kept n.p.o. and NGT was draining high amount of greenish fluid from the stomach. He was able to pass gas and kept on fluids which maintained his euvolemic status. His lactate levels also improved. No significant electrolyte imbalances and correction was provided. The patient had features of cachexia and malnourishment therefore dietitian consult was also placed. HIV status was negative. I suspected that the patient might have radiation proctitis leading to on and off diarrhea since he was also taking loperamide in his home medications. Surgeons were taken on board and discussed about his high NGT output and abdominal distention although he was passing gas. There was no surgical intervention required and it was decided to initiate diet slowly. The patient removed his NGT during his hospital stay and did not want to proceed with any catheter or NGT's. The patient became short of breath and there was also suspected possible aspiration pneumonia since he was taking a lot of ice chips and there was wet cough. Fluids were held, chest x-ray was done and he was given Lasix. Overnight the patient was offered for BiPAP but he did not tolerate and did not want to pursue with BiPAP. Later the patient was on and off refusing treatment during his hospital stay and overnight deteriorated. Early in the morning during nurses shift change, patient was talking and also the surgeon spoke to the patient and it was planned to start clear fluids diet. Patient was taking off his OxiMax on and off and was educated at that time. Respiratory and physical therapist went to see the patient and he without any plans with the time of 8:40 AM. I was called and went to see the patient, no brainstem reflexes that is lack of pupillary and corneal reflex, no gag reflex no doll's eye reflex. No pulse auscultation of the chest did not elicit any heart sounds or respiratory signs. No chest movements observed. I tried to call different numbers given by the assigned nurse and also the supportive employment case manager to inform the family however none of them was working. Patient managed according to the protocol and guidelines according to his clinical condition and unfortunately at 8:40 AM May the soul rest in peace Additional Data Advance directives?: Yes Discharge Plan Discharge Patient Disposition: Condition: Stable DS Attestations Time Spent in /Discharge Care*: greater than 30 min Quality - AMI: AMI present?: No Quality - Stroke: CVA present?: No Quality - VTE: VTE present?: No Coding Level of Care Code 71711 Diagnoses Enteritis of small intestine K52.9
--- NOTE | 2025-03-16 14:38 | PC.NURSE ---
[facility] [phone]
[2025-03-17 03:20] LABS: Absolute CD19+ Cells <20 cells/uL (110-660); Percent CD19 (B Cells) 2 % (6-29); Percent CD3 Mature T Cells 76 % (57-85)
== END 2025-03-16 11:08 | disposition expired | DRG 393 ==
LOC: ER 04:54 → MEDSURG 06:51
PROVIDERS: Admitting Provider Internal Medicine; Emergency Provider Emergency Medicine; PCP Family Medicine; Visit Provider Student in an Organized Health Care Education/Training Program
DX: K62.7 Radiation proctitis (principal); E43 Unspecified severe protein-calorie malnutrition; J96.01 Acute respiratory failure with hypoxia; J69.0 Pneumonitis due to inhalation of food and vomit; E87.21 Acute metabolic acidosis; Z68.1 Body mass index [BMI] 19.9 or less, adult; R64 Cachexia; A08.4 Viral intestinal infection, unspecified; Z66 Do not resuscitate; F32.A Depression, unspecified; I73.9 Peripheral vascular disease, unspecified; F41.9 Anxiety disorder, unspecified; R41.82 Altered mental status, unspecified; I48.91 Unspecified atrial fibrillation; J44.9 Chronic obstructive pulmonary disease, unspecified; F17.210 Nicotine dependence, cigarettes, uncomplicated; I10 Essential (primary) hypertension; E83.42 Hypomagnesemia; E83.39 Other disorders of phosphorus metabolism; E83.51 Hypocalcemia; F10.229 Alcohol dependence with intoxication, unspecified; R68.0 Hypothermia, not associated with low environmental temperature; J43.9 Emphysema, unspecified; Y90.3 Blood alcohol level of 60-79 mg/100 ml; Z85.038 Personal history of other malignant neoplasm of large intestine; Z79.899 Other long term (current) drug therapy; Z91.018 Allergy to other foods; Z88.0 Allergy status to penicillin; I25.2 Old myocardial infarction; Z85.048 Personal history of other malignant neoplasm of rectum, rectosigmoid junction, and anus; Z86.73 Personal history of transient ischemic attack (TIA), and cerebral infarction without residual deficits; Z86.718 Personal history of other venous thrombosis and embolism; Z92.21 Personal history of antineoplastic chemotherapy; Z92.3 Personal history of irradiation; Z90.49 Acquired absence of other specified parts of digestive tract; Z91.199 Patient's noncompliance with other medical treatment and regimen due to unspecified reason
CPT/HCPCS: 36415; 36416; 70450; 71045; 72170; 74177; 80053; 80307; 81001; 82009; 82533; 82550; 82962; 83605; 83735; 84100; 84443; 85025; 85610; 85651; 86140; 86355; 86359; 87077; 87086; 87186; 87637; 87806; 93005; 93306; 94640; 96365; 96366; 96372; 97161; 97530; 99285; J0612; J1650; J1938; J2270; J2470; J3475; J7030; J7611; J7799; J9999